=== PATIENT | male | born 1940 | race Caucasian/White ===

== ENCOUNTER 2017-12-22 01:47 | Outpatient (CLI) | payer MEDICARE, SELFPAY ==
[2017-12-22 09:44] LABS: Anion Gap 7.1 mmol/L (3-11); BUN 33 mg/dL (7-18); CO2 30.9 mmol/L (21.0-32.0); CREATININE 1.16 mg/dL (0.70-1.30); Calcium 9.2 mg/dL (8.5-10.1); Chloride 105 mmol/L (98-107); Glucose 91 mg/dL (70-100); Potassium 4.2 mmol/L (3.5-5.1); Sodium 143 mmol/L (136-145)
== END 2017-12-22 02:07 ==
PROVIDERS: PCP Student in an Organized Health Care Education/Training Program; Visit Provider Student in an Organized Health Care Education/Training Program
DX: I10 Essential (primary) hypertension (principal)
CPT/HCPCS: 36415; 80048

== ENCOUNTER → 2018-01-19 07:40 | Outpatient (BNVA) | payer MEDICARE, SELFPAY | PROVIDERS: PCP Student in an Organized Health Care Education/Training Program; Visit Provider Urology | DX: R35.0 Frequency of micturition (principal) | CPT/HCPCS: 51798; 99203; 99215 ==

== ENCOUNTER → 2018-06-16 10:34 | Outpatient (BNVA) | payer MEDICARE, SELFPAY | PROVIDERS: PCP Student in an Organized Health Care Education/Training Program; Visit Provider Urology | DX: R35.0 Frequency of micturition (principal); R39.15 Urgency of urination; I10 Essential (primary) hypertension | CPT/HCPCS: 99213 ==

== ENCOUNTER → 2018-07-28 10:20 | Outpatient (BNVA) | payer MEDICARE, SELFPAY | PROVIDERS: PCP Student in an Organized Health Care Education/Training Program; Visit Provider Urology | DX: N40.0 Benign prostatic hyperplasia without lower urinary tract symptoms (principal); I10 Essential (primary) hypertension | CPT/HCPCS: 99213 ==

== ENCOUNTER 2019-01-13 08:37 | Outpatient (CLI) | payer MEDICARE, SELFPAY ==
[2019-01-13 10:21] LABS: BUN 27 mg/dL (7-18); CREATININE 1.13 mg/dL (0.70-1.30); Calcium 9.7 mg/dL (8.5-10.1); Calculated LDL 158 mg/dL; Chloride 107 mmol/L (98-107); Cholesterol 222 mg/dL (<200); Glucose 94 mg/dL (74-106); HDL Cholesterol 53 mg/dL (40-60); Potassium 4.4 mmol/L (3.5-5.1); Sodium 147 mmol/L (136-145); Triglyceride 56 mg/dL (<150)
== END 2019-01-13 08:57 ==
PROVIDERS: PCP Student in an Organized Health Care Education/Training Program; Visit Provider Student in an Organized Health Care Education/Training Program
DX: I10 Essential (primary) hypertension (principal); E78.5 Hyperlipidemia, unspecified
CPT/HCPCS: 36415; 80048; 80061

== ENCOUNTER → 2019-08-03 10:11 | Outpatient (BNVA) | payer MEDICARE, SELFPAY | PROVIDERS: PCP Student in an Organized Health Care Education/Training Program; Visit Provider Urology | DX: N40.0 Benign prostatic hyperplasia without lower urinary tract symptoms (principal) | CPT/HCPCS: 99213 ==

== ENCOUNTER 2019-09-01 09:08 | Inpatient (IN) | payer MEDICARE, SELFPAY ==
--- NOTE | 2019-09-01 | RT.EKG_ITS ---
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
--- NOTE | 2019-09-01 09:00 | RT.EKG_ITS ---
APPROVED REPORT Exam: Resting ECG Patient Location: E HR:98 bpm ECG Measurements Heart Rate 98 AXIS WY 234 P 53 QRSd 104 QRS -21 QT 359 T 136 QTc 463 <Conclusion> Sinus tachycardiarate 98. PVCs..PR234. LVH with secondary repolarization abnormality...multi-LVH criteria,non specific st flattening no st elevation. Inferior infarct, old...Q >35mS, II III aVF
[2019-09-01 09:13] VITALS: BP 183/101; PULSE 100; RESP 14; TEMP 36.5; O2SAT 95
--- NOTE | 2019-09-01 09:15 | DI.CT_ITS ---
EXAM: CT ABDOMEN PELVIS W CLINICAL HISTORY: R > L abd pain for hours. DIstended. TECHNIQUE: Imaging Protocol: Axial computed tomography images with coronal and sagittal reformatted images were created and reviewed CONTRAST MATERIAL: Intravenous: Omnipaque 350 Contrast volume:100 mL Oral: No COMPARISON: US ABDOMEN ULTRASOUND (P) from 10/21/2011 US ABDOMEN ULTRASOUND (P) from 09/28/2012 FINDINGS: Patient motion artifact is present. ABDOMEN: Lung Bases: Normal where visualized. Liver: Normal density. No measurable mass. 2 cm cyst in the left lobe. Portal, Superior Mesenteric, and Splenic Veins: Unremarkable. Gallbladder and Biliary Tract: Cholelithiasis. No biliary ductal dilatation. Pancreas: Normal density, no abnormal calcifications or inflammatory process. Spleen: Normal. Adrenals: No masses seen. Kidneys: Normal size, contour and axis. No radiodense stones or obstructive uropathy. Bilateral parap elvic cysts. Abdominal Aorta: Abdominal portion non-dilated. Atherosclerosis. Bowel: No obstruction or bowel wall thickening. Appendix is unremarkable. Peritoneal Cavity: No ascites, collection or mesenteric inflammatory response. Lymph Nodes: Within normal limits. Bones: Degenerative changes. Soft Tissues: Fat containing left inguinal hernia. PELVIS: Bladder: Symmetric distention, no gross wall thickening. Reproductive Organs: Unremarkable as visualized. Lymph Nodes: Within normal limits. Bones: Degenerative changes. IMPRESSION: 1. No acute abdominal process. 2. Cholelithiasis. No biliary ductal dilatation. 3. No evidence of bowel obstruction. 4. Findings were discussed with the emergency department on the date of the examination. RADIATION DOSE DELIVERED: Total DLP DATA REPOSITORY: All CT scans at this facility are submitted to the National Radiology Data Registry (NRDR) Dose Index Registry (DIR) with the [employer] (ACR). RADIATION OPTIMIZATION: All CT scans at this facility use at least one of these dose optimization te chniques: automated exposure control; mA and/or kV adjustment per patient size (includes targeted exa ms where dose is matched to clinical indication); or iterative reconstruction.
--- NOTE | 2019-09-01 09:26 | ED.GENADUL_ITS ---
Discharge Plan Disposition Patient Disposition: [facility] IN[facility]IENT Condition: Stable Discharge Details Chief Complaint: Abd Prob Clinical Impression: Gallbladder sludge Admit Date/Time: 09/01/19 14:00 Admit Provider: Jennifer Rodriguez Attending Provider: Jennifer Rodriguez Primary Care Provider: Elana Green ED Provider: Leon Cuellar Medical Decision Making 78-year-old male presents from home with hours of lower abdominal pain and bloating. He was recently seen in clinic on July 27 and started on Lasix 20 mg twice daily for lower extremity edema which has had some improvement. His discomfort was minimally improved with antacid at home. He arrives slightly hypertensive, afebrile, with an exam that reveals a distended and mildly tympanitic abdomen. IV placed, labs obtained, patient offered analgesia which she declined. Is given a small 500 cc lactated Ringer's bolus. Labs reveal a white blood cell count of 16, hematocrit 48, platelets 152. His BUN is 31, creatinine 1.3. Lactic acid is elevated at 5.0. Total bili 1.2, AST 16, ALT 29, negative troponin and normal lipase of 142. Referred for CT imaging which reveals gallstones, no significant acute pathology otherwise noted. Subsequent right upper quadrant ultrasound: Gallstones/sludge at neck, CBD within normal limits. Case discussed with Dr. Rodriguez. Patient given parenteral antibiotics and he will be admitted for further observation and management. Lab Data Lab results reviewed: Yes I reviewed the patient's lab results. Labs: Laboratory Results - last 24 hr 09/01/19 09/01/19 09/01/19 09:29 09:29 09:29 WBC 16.27 H RBC 5.71 Hgb 15.9 Hct 48.8 MCV 85.5 MCH 27.8 MCHC 32.6 RDW 14.8 H Plt Count 152 MPV 9.7 Immature Gran % 0.5 Neutrophils % 89.5 Lymphocytes % 3.1 Monocytes % 6.8 Eosinophils % 0.0 Basophils % 0.1 Absolute Neutrophils 14.56 H Absolute Lymphocytes 0.50 L Absolute Monocytes 1.11 H Absolute Eosinophils 0.00 Absolute Basophils 0.02 Sodium 140 Potassium 4.0 Chloride 100 Carbon Dioxide 29.0 Anion Gap 11.0 BUN 31 H Creatinine 1.38 H Estimated GFR/1.73 m2 49.70 Glucose 184 H Lactate 5.0 H* Calcium 10.1 Magnesium 2.1 Total Bilirubin 1.2 H AST 16 ALT 29 Alkaline Phosphatase 66 Troponin I < 0.05 Total Protein 8.0 Albumin 3.9 Lipase 142 ECG Data Attestation: I personally reviewed and interpreted this ECG (s) as follows: Interpretation: Sinus tachycardia, rate is 98, QRS is narrow, there is no ST elevation, there are nonspecific ST segment changes present. Inferior Q waves present. See formal report. HPI General Mode of arrival: ambulatory . Date/Time Provider Initiated Documentation: 09/01/19 09:10 . Limitations to Documentation: no limitations . Information obtained by: patient . History of Present Illness 78 year old M presents to the emergency department with the chief complaint of Lower abdominal pain over hours, described as moderate, Quality is described as dull and constant, and is localized to the abdomen, left and right. Patient abdomen. Patient started experiencing this hour(s) and it has been constant. No relieving factors improve symptom(s), No exacerbating factors reported . Patient notes loss of appetite and other (No bowel movement x3 days). Patient did receive the following treatments prior to arrival, none Related Data Home Medications Medication Instructions Recorded Confirmed acetaminophen [Acetaminophen Extra 1,000 mg PO PRN PRN 06/11/12 09/01/19 Strength] aspirin [Low Dose Aspirin Ec] 81 mg PO M-W-F tab-cap 06/11/12 09/01/19 polyvinyl alcohol [Artificial 1 drp OPHTHALMIC PRN PRN 06/11/12 09/01/19 Tears] furosemide 20 mg tablet 20 mg PO BID #60 tab 07/28/19 09/01/19 lisinopril 40 mg tablet 40 mg PO DAILY #90 tab 07/28/19 09/01/19 Previous Rx's Medication Instructions Recorded furosemide 20 mg tablet 20 mg PO BID #60 tab 07/28/19 lisinopril 40 mg tablet 40 mg PO DAILY #90 tab 07/28/19 Allergies Allergy/AdvReac Type Severity Reaction Status Date / Time hydrochlorothiazide AdvReac Mild possible Verified 09/01/19 09:29 Erectile dysfunction General Stated Complaint: Abd Prob THALIA: 3 Review of Systems Narrative: Move around recent initiation of Lasix. History of GERD. No cough, fever. Minimally improved with acid medication at home last night. 8 systems reviewed and otherwise negative. [facility] Medical History Benign hypertension (Chronic 12/09/05) <140/85; BP was high at time of colonoscopy so Dr. Taylor started him on HCTZ 2005. High BP readings @ ophtho, urol . turns out to be 2' finesteride, Dr. Smallwood d/levi'pool .. will follow up in July 2018. 125/85 today, 06/2018, ik. 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 Pleasant, well groomed, interactive. HEAD: Normocephalic, atraumatic ENT: Mucous membranes moist, oropharynx unremarkable, External ear exam unrem arkable EYES: PERRL, EOMI NECK: Full ROM, no BEATRIZ, no menigismus CHEST/RESP: Nontender, clear to auscultation bilateral, no wheeze/rhonchi/rales CARDIOVASCULAR: Distant: RRR, no murmur, rub nabor. 2+ Rad pulse bilateral ABDOMEN: Soft, distended, slightly tympanitic, mildly tender in the right lower quadrant, no significant rebound,, no mass. +Bowel sounds EXT: Full ROM, 1+ pretibial edema, no rash Neuro: Grossly normal neurologic exam, conversant, interactive. Psych: Speech fluent, thoughts congruent, affect normal Course Vital Signs Vital signs: Vital Signs Temperature 36.5 C 09/01/19 09:13 Pulse 100 H 09/01/19 09:13 Respiratory Rate 14 09/01/19 09:13 Blood Pressure 183/101 H 09/01/19 09:13 Pulse Oximetry 95 09/01/19 09:13 Temperature 36.5 C 09/01/19 09:13 Temperature Source Temporal Artery Scan 09/01/19 09:13 Pulse 100 H 09/01/19 09:13 Respiratory Rate 14 09/01/19 09:13 Blood Pressure 183/101 H 09/01/19 09:13 Blood Pressure Position Sitting 09/01/19 09:13 Pulse Oximetry 95 09/01/19 09:13 Oxygen Delivery Method Room Air 09/01/19 09:13 Oxygen Flow Rate 0 09/01/19 09:13 Pain Level 5 09/01/19 09:13
[2019-09-01 09:37] LABS: Abs Immature Grans 0.08 k/cumm (0.0-0.09); Absolute Basophil Count 0.02 k/cumm (0.0-0.2); Absolute Monocyte Count 1.11 k/cumm (0.11-0.7); Absolute Neutrophil Count 14.56 k/cumm (1.2-6.7); Basophils % 0.1; HCT 48.8 % (40.0-50.0); HGB 15.9 g/dL (13.5-17.5); Immature Grans % 0.5 %; Lymphocytes % 3.1; Mean Corp. HGB Concentration 32.6 g/dL (32.0-36.0); Mean Corpuscular Hemoglobin 27.8 pg (27.0-33.0); Mean Corpuscular Volume 85.5 fL (80-95); Mean Platelet Volume 9.7 fL (8.0-11.0); Monocytes % 6.8; Neutrophils % 89.5; Platelet Count 152 x1000/uL (130-400); RBC 5.71 m/cumm (4.50-6.00); RBC Distribution Width 14.8 % (11.8-14.1); White Blood Cell Count 16.27 k/cumm (4.4-10.8)
[2019-09-01 09:57] LABS: ALT 29 U/L (16-63); AST 16 U/L (15-37); Albumin 3.9 g/dL (3.4-5.0); Alkaline Phosphatase 66 U/L (46-116); BUN 31 mg/dL (7-18); Bilirubin, Total 1.2 mg/dL (0.2-1.0); CREATININE 1.38 mg/dL (0.70-1.30); Calcium 10.1 mg/dL (8.5-10.1); Chloride 100 mmol/L (98-107); Glucose 184 mg/dL (74-106); Lipase 142 U/L (73-393); Magnesium 2.1 mg/dL (1.8-2.4); Sodium 140 mmol/L (136-145)
[2019-09-01] MEDS: Lactated Ringers 500 ML IV (09:57)
[2019-09-01 09:58] LABS: Troponin I < 0.05 ng/mL (<0.06)
[2019-09-01] MEDS: Omnipaque 350 MG/ML 100 ML BTL IJ (10:19)
[2019-09-01] MEDS: Normal Saline - Diluent 50 ML VIAL IV (10:20)
[2019-09-01] MEDS: Normal Saline Flush 10 ML SYR IVP ×2 (10:21→16:30)
--- NOTE | 2019-09-01 10:30 | DI.US_ITS ---
EXAM: US ABDOMEN LIMITED CLINICAL HISTORY: R abd pain, gallstones on CT. please evaluate TECHNIQUE: Ultrasound abdomen performed using standard protocol. COMPARISON: CT CT ABDOMEN PELVIS W from 09/01/2019 FINDINGS: GALLBLADDER: Gallbladder sludge is present. No evidence of wall thickening. No pericholecystic fluid identified. BILIARY SYSTEM: Common bile duct measures 0.8 cm. No intrahepatic biliary ductal dilation. IMPRESSION: Gallbladder sludge. No biliary ductal dilatation. Examination is limited due to overlying bowel gas. DATA REPOSITORY:
[2019-09-01 11:06] LABS: Bilirubin Negative (Negative); Blood Small (Negative); Clarity Clear (Clear); Glucose Negative (Negative); Ketones Negative (Negative); Leukocyte Esterase Negative (Negative); Nitrite Negative (Negative); Specific Gravity 1.015 (1.005-1.025); Urobilinogen 0.2 EU/dL (Up TO 0.2)
[2019-09-01 11:14] LABS: Bacteria Rare HPF (Negative); C & S Indicated? No; Casts Negative LPF (Negative); Crystals Negative HPF (Negative); Epithelial Cells Negative HPF (Negative); Mucus Negative (Negative); Other Cells Negative (Negative); WBC Negative HPF (0-5)
[2019-09-01 11:33] VITALS: BP 193/95; PULSE 97; RESP 19; TEMP 37.4; O2SAT 95
[2019-09-01] MEDS: PIPERACILLIN/TAZO 3.375 GM in Normal Saline 50 ML IVPB (11:49)
[2019-09-01] MEDS: Normal Saline 1,000 ML 125 ML IV ×2 (11:50→16:31)
[2019-09-01 12:15] LABS: Lactate 4.8 mmol/L (0.6-1.4)
[2019-09-01 15:08] VITALS: BP 182/107; PULSE 105; RESP 22; TEMP 36.6; O2SAT 96
[2019-09-01 15:09] VITALS: BP 178/112; BP 180/110
[2019-09-01 15:22] VITALS: BP 180/110; PULSE 105; RESP 22; TEMP 36.6; O2SAT 96
[2019-09-01] MEDS: Pantoprazole 40 MG VIAL IVP (16:29)
[2019-09-01] MEDS: Enoxaparin 30 MG/0.3 ML SYR SC (16:30)
[2019-09-01] MEDS: PIPERACILLIN/TAZO 4.5 GM in Normal Saline 100 ML IVPB (16:32)
--- NOTE | 2019-09-01 21:39 | HPE_ITS ---
Date of service: 09/01/19 Time of Service: 21:39 Assessment and Plan Assessment and plan (1) Gallbladder sludge: Status: Acute (2) Abdominal aortic aneurysm: Status: Acute Assessment and plan: CT that was done today does not show any aneurysm. (3) Pain in joint, other specified sites: Status: Chronic (4) Obesity, Class II, BMI 35-39.9, no comorbidity: Status: Chronic (5) Memory disturbance: Status: Chronic (6) Hyperlipidemia: Status: Chronic (7) Benign hypertension: Status: Chronic (8) BPH w/o urinary obs/LUTS: Status: Chronic (9) Gallstones: Status: Acute Assessment and plan: Patient does exhibit clinical dehydration today. He does not exhibit any acute cardio pathology. Ultrasound and CT did not show any signs of acute cholecystitis. He definitely has gallstones and sludge. He definitely clinically has moderate right upper quadrant pain. He has never had any gallbladder problems up until this point. He definitely needs to be admitted. I am going to start him on antibiotics. I am not 100% convinced at this time that this his problems are due to acute cholecystitis. However I am going to treat him medically. I would like to get an echo before we do surgery on him today and then start him on antibiotics and Protonix. And we will see how he is feeling in the morning and continue supportive care If he is not better in the morning and his echo is favorable then we may do laparoscopic Elena in the morning. I was not able to discuss the case with the patient's today. And I do want to talk to her before we proceed to surgery. Patient is not a good historian. Currently he is medically stable and will admit him to [facility] (10) Gallbladder sludge: Status: Acute History of Present Illness Consults Consult date: 09/01/19 Requesting physician: Leon Cuellar Narrative: From ED: 8 year old M presents to the emergency department with the chief complaint of Lower abdominal pain over hours, described as moderate, Quality is described as dull and constant, and is localized to the abdomen, left and right. Patient abdomen. Patient started experiencing this hour(s) and it has been constant. No relieving factors improve symptom(s), No exacerbating factors reported . Patient notes loss of appetite and other (No bowel movement x3 days). Patient did recei ve the following treatments prior to arrival, none Related Data Patient was seen and examined at 1:00 this afternoon. Patient came into the ED today complaining of abdominal pain. Patient is not the greatest historian and is very hard of hearing. Patient stating he woke up this morning with abdominal pain. He is never had problems with abdominal pain in the past. He does not get heartburn or indigestion. He is not on any stomach medication. He has been nauseated and has not not eaten today. Has not had a bowel movement in several days. He is not throwing up. He is not noticed any blood in his stools. He denies any pain or difficulty swallowing. He has had no weight loss. He has never had anything like this before. No one else at home is ill. He denies any new medications or travel. He points basically at his right mid abdomen where he says he has pain. Patient is never had any abdominal surgery before. Blood thinner that he is on is aspirin. Patient has recently noticed worsening of lower extremity edema for which she recently started Lasix for. He has had no echo or stress test done recently. He has a history of hypertension elevated cholesterols and smoking. He is never had a heart attack or stroke. He denies diabetes mellitus. He denies obstructive sleep apnea. Dr. Dela Cruz did note that he is starting to develop some memory problems. Results of the EKG obtained in the ED noted by Dr. Cuellar. I did personally review all his labs and x-ray studies.. From PCP 07/2019 He has a past medical history significant for hypertension, hyperlipidemia, and benign prostate hyperplasia. No Hx CAD; he is not taking medication to manage cholesterol. We reviewed lab results from this past fall and the are mostly WNL. COntinue with diet and lifestyle modifications Review of Systems All systems reviewed & are unremarkable except as noted in HPI and below [facility] Medical History Benign hypertension (Chronic 12/09/05) <140/85; BP was high at time of colonoscopy so Dr. Taylor started him on HCTZ 2005. High BP readings @ ophtho, urol . turns out to be 2' finesteride, Dr. Smallwood d/c'd .. will follow up in July 2018. 125/85 today, 06/2018, ik. 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 [employer] What type of physical activity do you participate in: none Working smoke detector in home: Yes Fire extinguisher in home: Yes Carbon monox detector in home: Yes Do you feel safe at home: Yes Meds Home Medications and Allergies Home Medications Medication Instructions Recorded Confirmed Type acetaminophen [Acetaminophen Extra 1,000 mg PO PRN PRN 06/11/12 09/01/19 History Strength] aspirin [Low Dose Aspirin Ec] 81 mg PO M-W-F tab-cap 06/11/12 09/01/19 History polyvinyl alcohol [Artificial 1 drp OPHTHALMIC PRN PRN 06/11/12 09/01/19 History Tears] furosemide 20 mg tablet 20 mg PO BID #60 tab 07/28/19 09/01/19 Rx lisinopril 40 mg tablet 40 mg PO DAILY #90 tab 07/28/19 09/01/19 Rx Allergies Allergy/AdvReac Type Severity Reaction Status Date / Time hydrochlorothiazide AdvReac Mild possible Verified 09/01/19 09:29 Erectile dysfunction Exam [facility] Head: normal to inspection Ears: hearing grossly impaired Mouth: oral mucosae normal Chest Chest: normal inspection of the chest Resp Effort & Inspection: normal respiratory effort and able to speak in complete sentences Auscultation: clear to auscultation bilaterally Cardio Jugular venous pressure: no JVD Palpation: normal PMI Rate: regular rate GI Inspection: distended, large pannus and obesity Palpation: firm Auscultation: normal bowel sounds Other: Patient points to the right upper generalized area of the abdomen. It is maybe a positive Sev[place] sign. He does have good bowel sounds. Slightly distended. He does have a umbilical hernia. This is nonincarcerated. There is a left inguinal hernia noted on CAT scan. I did not do a complete inguinal lorena ia exam. He has no pain down on the side. Results Labs Result diagrams: 09/01/19 09:29 09/01/19 09:29 Labs: Laboratory Results - last 24 hr 09/01/19 09/01/19 09/01/19 09:29 09:29 09:29 WBC 16.27 H RBC 5.71 Hgb 15.9 Hct 48.8 MCV 85.5 MCH 27.8 MCHC 32.6 RDW 14.8 H Plt Count 152 MPV 9.7 Immature Gran % 0.5 Neutrophils % 89.5 Lymphocytes % 3.1 Monocytes % 6.8 Eosinophils % 0.0 Basophils % 0.1 Absolute Neutrophils 14.56 H Absolute Lymphocytes 0.50 L Absolute Monocytes 1.11 H Absolute Eosinophils 0.00 Absolute Basophils 0.02 Sodium 140 Potassium 4.0 Chloride 100 Carbon Dioxide 29.0 Anion Gap 11.0 BUN 31 H Creatinine 1.38 H Estimated GFR/1.73 m2 49.70 Glucose 184 H Lactate 5.0 H* Calcium 10.1 Magnesium 2.1 Total Bilirubin 1.2 H AST 16 ALT 29 Alkaline Phosphatase 66 Troponin I < 0.05 Total Protein 8.0 Albumin 3.9 Lipase 142 Urine Color Urine Clarity Urine pH Ur Specific [place] Urine Protein Urine Ketones Urine Blood Urine Nitrite Urine Bilirubin Urine Urobilinogen Ur Leukocyte Esterase Urine RBC Urine WBC Ur Epithelial Cells Urine Crystals Urine Bacteria Urine Casts Urine Mucus Urine Other Ur Culture Indicated? Urine Glucose 09/01/19 09/01/19 10:55 12:08 WBC RBC Hgb Hct MCV MCH MCHC RDW Plt Count MPV Immature Gran % Neutrophils % Lymphocytes % Monocytes % Eosinophils % Basophils % Absolute Neutrophils Absolute Lymphocytes Absolute Monocytes Absolute Eosinophils Absolute Basophils Sodium Potassium Chloride Carbon Dioxide Anion Gap BUN Creatinine Estimated GFR/1.73 m2 Glucose Lactate 4.8 H* Calcium Magnesium Total Bilirubin AST ALT Alkaline Phosphatase Troponin I Total Protein Albumin Lipase Urine Color Yellow Urine Clarity Clear Urine pH 7.0 Ur Specific [place] 1.015 Urine Protein 30 H Urine Ketones Negative Urine Blood Small H Urine Nitrite Negative Urine Bilirubin Negative Urine Urobilinogen 0.2 Ur Leukocyte Esterase Negative Urine RBC 5-10 H Urine WBC Negative Ur Epithelial Cells Negative Urine Crystals Negative Urine Bacteria Rare Urine Casts Negative Urine Mucus Negative Urine Other Negative Ur Culture Indicated? No Urine Glucose Negative Last Vital Signs Temp 36.6 C 09/01/19 15:22 Pulse 105 H 09/01/19 15:22 Resp 22 09/01/19 15:22 BP 180/110 H 09/01/19 15:22 Pulse Ox 96 09/01/19 15:22 COVID-19 Screening Have you,or household,traveled outside [place] in last 14 days?: No Had IN PERSON contact w/suspected or confirmed C-19 person: No
[2019-09-01 22:03] LABS: Prothrombin Time 10.5 sec (9.3-11.0)
[2019-09-01 22:15] LABS: Troponin I < 0.05 ng/mL (<0.06)
[2019-09-01] MEDS: Magnesium Citrate 300 ML BTL PO (22:27)
[2019-09-01 23:44] VITALS: BP 195/99; PULSE 83; RESP 20; TEMP 36.8; O2SAT 94
--- NOTE | 2019-09-02 | DI.US_ITS ---
APPROVED REPORT EXAM: Comprehensive 2D, Doppler, and color-flow Echocardiogram Patient Location: In-Patient Room/Bed: [address] Teacher: Anisa Chairez RDCS (AE) Indications: HTN, Edema, Smoker Other Information Study Quality: Poor Conclusion Left Ventricle : The left ventricle is normal size. The left ventricular systolic function is normal. The left ventricular ejection fraction is within the normal range. There is normal left ventricular wall thickness. Regional wall motion is grossly normal. Visually LVEF appears to be 45-50%. Right Ventricle : The right ventricle is normal size. The right ventricular systolic function is norm al. The RVSP is 20 mmHg. Atria : The left atrium size is normal. The right atrium size is normal. Valves: There are no hemodynamically significant valvular lesions. Great Vessels : The aortic root is normal in size. The ascending aorta is mildly dilated. IVC is norm al in size and collapses >50% with inspiration. There is no prior study available for comparison Please see the rest of report for additional findings. Wall motion Left Ventricle The left ventricle is normal size. The left ventricular systolic function is normal. The left ventric ular ejection fraction is within the normal range. There is normal left ventricular wall thickness. R egional wall motion is grossly normal. There is no ventricular septal defect visualized. Visually LVE F appears to be 45-50%. Right Ventricle The right ventricle is normal size. The right ventricular systolic function is normal. The RVSP is 20 mmHg. Atria The left atrium size is normal. The right atrium size is normal. The interatrial septum is intact wit h no evidence for an atrial septal defect. Aortic Valve Aortic valve is trileaflet. The Aortic valve is sclerotic. There is no aortic valvular stenosis. No a ortic regurgitation is present. Mitral Valve Mild mitral annular calcification. No evidence of mitral valve stenosis. Trace mitral regurgitation. Tricuspid Valve The tricuspid valve is normal in structure. There is no tricuspid valve stenosis. Trace tricuspid reg urgitation. Pulmonic Valve The pulmonary valve is normal in structure. There is no pulmonic valvular stenosis. There is no pulmo yesi valvular regurgitation. Great Vessels The aortic root is normal in size. The ascending aorta is mildly dilated. IVC is normal in size and c ollapses >50% with inspiration. Pericardium There is no pericardial effusion. 2D Dimensions IVSD d PLAX 1.03 cm M: 0.6-1.2 LVPW d PLAX 1.05 cm M: 0.6 - 1.2 LVID d PLAX 5.16 cm M: 4.2 - 5.8 LVDs 3.75 cm M: 2.5 - 4.0 Ao Root d 2.66 cm M: 3.1 - 3.7 Ao Asc Diam d 3.60 cm M: 2.6 - 3.4 LV EF Teichholz 51.4 % FS 26.35 % M-Mode TAPSE 1.24 cm (M/F) >1.7 LV Diastology MV E' medial 0.048 (>0.07 m/s) E/A Ratio 0.6 LV E/e MED 12.60 (<14) MV E Vmax 0.61 (0.4-1.3 m/s) MV E' lateral 0.109 (>0.1 m/s) MV A Vmax 1.05 (0.4-1.3 m/s) LV E/e LAT 5.55 (<14) MV E/A Ratio 0.57 MV E/E' medial 12.61 MV E/E' lateral 5.59 Aortic Valve LVOT Area 2.89 cm2 AoV Area Vmax 1.54 cm2 LVOT Vmax 0.95 m/s AoV Area/ BSA (Vmax) 0.70 cm2/m2 LVOT Mean Tavo. 0.58 m/s TIMOTHY Mean Tavo. 1.36 cm2 LVOT Peak Grad 3.6 mmHg TIMOTHY Mean Tavo. Index 0.62 cm2/m2 LVOT Mean Grad 1.7 mmHg LVOT VTI 0.165 m LVOT Diam s 1.90 cm AoV Vmax 1.79 m/s Velocity Ratio 0.53 AoV Mean Tavo. 1.23 m/s AoV Peak Grad 12.9 mmHg LVOT SV 47.72 mL AoV Mean Grad 6.8 mmHg AoV VTI 0.287 m AoV Area VTI 1.66 cm2 AoV Area/ BSA (VTI) 0.75 cm/m2 Mitral Valve MV DT 238 (160-240 msec) MV PHT 69 msec MV Area PHT 3.19 cm2 Pulmonary Valve PV Vmax 1.14 (0.5-1.5 m/s) RVOT Peak Gr. 1.95 mmHg PV Peak Grad 5.2 mmHg RVOT Mean Gr. 1.10 mmHg PV Mean Grad 3.2 mmHg RVOT VTI 0.113 m PV VTI 0.198 m RVOT Vmax 0.70 m/s Tricuspid Valve TR Peak Grad 16.8 mmHg TR Vmax 2.05 m/s RA Pressure 3.00 mmHg RVSP (TR) 19.9 mmHg
[2019-09-02] MEDS: PIPERACILLIN/TAZO 4.5 GM in Normal Saline 100 ML IVPB ×3 (00:26→16:11)
[2019-09-02 06:48] LABS: Abs Immature Grans 0.06 k/cumm (0.0-0.09); Absolute Basophil Count 0.02 k/cumm (0.0-0.2); Absolute Eosinophil Count 0.09 k/cumm (0.0-0.7); Absolute Lymphocyte Count 0.98 k/cumm (1.2-3.4); Absolute Monocyte Count 1.52 k/cumm (0.11-0.7); Absolute Neutrophil Count 9.01 k/cumm (1.2-6.7); Basophils % 0.2; Eosinophils % 0.8; HGB 15.3 g/dL (13.5-17.5); Immature Grans % 0.5 %; Lymphocytes % 8.4; Mean Corp. HGB Concentration 32.6 g/dL (32.0-36.0); Mean Corpuscular Hemoglobin 27.9 pg (27.0-33.0); Mean Corpuscular Volume 85.6 fL (80-95); Mean Platelet Volume 10.1 fL (8.0-11.0); Neutrophils % 77.1; Platelet Count 128 x1000/uL (130-400); RBC 5.49 m/cumm (4.50-6.00); RBC Distribution Width 15.2 % (11.8-14.1); White Blood Cell Count 11.68 k/cumm (4.4-10.8)
[2019-09-02 06:56] LABS: INR 1.1 (0.9-1.1); Prothrombin Time 10.7 sec (9.3-11.0)
[2019-09-02 07:14] LABS: ALT 21 U/L (16-63); AST 22 U/L (15-37); Albumin 3.4 g/dL (3.4-5.0); Alkaline Phosphatase 60 U/L (46-116); Anion Gap 7.9 mmol/L (3-11); BUN 26 mg/dL (7-18); Bilirubin, Total 2.7 mg/dL (0.2-1.0); CO2 29.1 mmol/L (21.0-32.0); Calcium 9.8 mg/dL (8.5-10.1); Chloride 104 mmol/L (98-107); Estimated GFR 53.25 (mL/min/1.73m2); Glucose 125 mg/dL (74-106); Potassium 3.7 mmol/L (3.5-5.1); Sodium 141 mmol/L (136-145); Total Protein 7.1 g/dL (6.4-8.2)
[2019-09-02 07:26] LABS: Diff Comment Diff Reviewed; RBC Morphology Normal
[2019-09-02 07:44] VITALS: BP 212/118; PULSE 85; RESP 20; TEMP 36.9; O2SAT 94
[2019-09-02] MEDS: Lisinopril 20 MG TAB 40 MG PO (07:51)
[2019-09-02 08:27] LABS: COVID-19 RT-PCR UVMMC Result Negative (Negative)
--- NOTE | 2019-09-02 09:44 | W.PM.PROGNOT ---
Date of Service Date of service: 09/02/19 Time of Service: 09:44 Assessment and Plan Assessment and plan (1) Gallbladder sludge: Status: Acute (2) Abdominal pain: Status: Acute Assessment and plan: Right lower quadrant abdominal pain. Uncertain uncertain etiology. I did review his CT today. He does have stones and sludge. The stones are very small. He has no other signs of acute cholecystitis. He has had no problems prior to Friday. He has no nausea today and tolerated clear liquids. He is not the best historian. I am not sure the clinical significance or the etiology for the elevated bilirubin. There is no signs liver disease on CT scan. And his other LFTs are normal. He still has not been able to move his bowels. We will continue to work on this. He did have an echo today and this was relatively preserved. We will continue with conservative medical management (3) Obstipation: Status: Acute (4) Elevated bilirubin: Status: Acute Subjective Subjective Interval history since last seen: I did review the CT scan the radiologist. There are no masses in the pancreas the common bile duct is completely normal. Is 2 very small stones in the gallbladder and a lot of sludge. There is no signs of cholangiocarcinoma or cholangitis. On exam today patient has some mild tenderness in the right lower quadrant. No nausea and vomiting. He is passing gas. He is not had a bowel movement. Again he had no symptomatology and was in a normal state of good health until yesterday. He had a colonoscopy in 2010 that was essentially unremarkable. He had follow-up removed but was hyperplastic. Labs and x-rays reviewed today. No results on his echo looked good. Patient is hungry. Exam [facility] Other: neg/unchanged Chest Chest: normal inspection of the chest Resp Effort & Inspection: normal respiratory effort and able to speak in complete sentences Auscultation: clear to auscultation bilaterally Cardio Rate: regular rate Rhythm: regular rhythm Other: Results of echo reviewed and are normal for age. GI Inspection: obesity Palpation: soft Auscultation: normal bowel sounds Other: Mild right lower quadrant pain. Small umbilical hernia. No peritonitis. Patient wants to eat Objective Objective Clinical Data: Abnormal lab results 09/01/19 09/01/19 09/01/19 Range/Units 09:29 10:55 12:08 WBC (4.4-10.8) k/cumm RDW (11.8-14.1) % Plt Count (130-400) x1000/uL Absolute Neutrophils (1.2-6.7) k/cumm Absolute Lymphocytes (1.2-3.4) k/cumm Absolute Monocytes (0.11-0.7) k/cumm BUN 31 H (7-18) mg/dL Creatinine 1.38 H (0.70-1.30) mg/dL Glucose 184 H (74-106) mg/dL Lactate 4.8 H* (0.6-1.4) mmol/L Total Bilirubin 1.2 H (0.2-1.0) mg/dL Urine Protein 30 H (Negative) mg/dL Urine Blood Small H (Negative) Urine RBC 5-10 H (0-2) HPF 09/01/19 09/02/19 09/02/19 Range/Units 21:45 06:20 06:20 WBC 11.68 H (4.4-10.8) k/cumm RDW 15.2 H (11.8-14.1) % Plt Count 128 L (130-400) x1000/uL Absolute Neutrophils 9.01 H (1.2-6.7) k/cumm Absolute Lymphocytes 0.98 L (1.2-3.4) k/cumm Absolute Monocytes 1.52 H (0.11-0.7) k/cumm BUN 26 H (7-18) mg/dL Creatinine (0.70-1.30) mg/dL Glucose 125 H (74-106) mg/dL Lactate 2.0 H (0.6-1.4) mmol/L Total Bilirubin 2.7 H (0.2-1.0) mg/dL Urine Protein (Negative) mg/dL Urine Blood (Negative) Urine RBC (0-2) HPF Vital Signs Temperature 36.9 C 09/02/19 07:44 Temperature Source Tympanic 09/02/19 07:44 Pulse 85 09/02/19 07:44 Pulse Rhythm Regular 09/02/19 07:50 Respiratory Rate 20 09/02/19 07:44 Respiratory Effort Non-Labored 09/02/19 07:50 Respiratory Depth Normal 09/02/19 07:50 Respiratory Pattern Normal 09/02/19 07:50 Blood Pressure 212/118 H 09/02/19 07:44 Blood Pressure Position Sitting 09/01/19 09:13 Pulse Oximetry 94 L 09/02/19 07:44 Oxygen Delivery Method Room Air 09/01/19 23:44 Oxygen Flow Rate 0 09/01/19 23:44 Pain Level 4 09/02/19 07:44 Comment 09/02/19 07:44 Intake & Output 09/01/19 09/01/19 09/02/19 11:59 23:59 11:59 Intake Total 500 / 1255.417 735.417 / 1255.417 120 / 120 Output Total 500 / 500 Balance 500 / 1055.417 735.417 / 1055.417 -380 / -380 Weight 108.862 kg 108.862 kg Intake: IV 500 / 1255.417 735.417 / 1255.417 120 / 120 Output: Urine 500 / 500 Other: Urine Color Yellow Urine Appearance Clear Urine Odor Normal Comment void x 1 in toilet missing measuring hat. Voiding Methods Toilet Laboratory Results WBC 11.68 k/cumm (4.4-10.8) H 09/02/19 06:20 RBC 5.49 m/cumm (4.50-6.00) 09/02/19 06:20 Hgb 15.3 g/dL (13.5-17.5) 09/02/19 06:20 Hct 47.0 % (40.0-50.0) 09/02/19 06:20 MCV 85.6 fL (80-95) 09/02/19 06:20 MCH 27.9 pg (27.0-33.0) 09/02/19 06:20 MCHC 32.6 g/dL (32.0-36.0) 09/02/19 06:20 RDW 15.2 % (11.8-14.1) H 09/02/19 06:20 Plt Count 128 x1000/uL (130-400) L 09/02/19 06:20 MPV 10.1 fL (8.0-11.0) 09/02/19 06:20 Immature Gran % 0.5 % 09/02/19 06:20 Neutrophils % 77.1 09/02/19 06:20 Lymphocytes % 8.4 09/02/19 06:20 Monocytes % 13.0 09/02/19 06:20 Eosinophils % 0.8 09/02/19 06:20 Basophils % 0.2 09/02/19 06:20 Absolute Neutrophils 9.01 k/cumm (1.2-6.7) H 09/02/19 06:20 Absolute Lymphocytes 0.98 k/cumm (1.2-3.4) L 09/02/19 06:20 Absolute Monocytes 1.52 k/cumm (0.11-0.7) H 09/02/19 06:20 Absolute Eosinophils 0.09 k/cumm (0.0-0.7) 09/02/19 06:20 Absolute Basophils 0.02 k/cumm (0.0-0.2) 09/02/19 06:20 Differential Comment Diff reviewed 09/02/19 06:20 RBC Morphology Normal 09/02/19 06:20 PT 10.7 sec (9.3-11.0) 09/02/19 06:20 INR Cancelled 09/02/19 08:30 Sodium 141 mmol/L (136-145) 09/02/19 06:20 Potassium 3.7 mmol/L (3.5-5.1) 09/02/19 06:20 Chloride 104 mmol/L (98-107) 09/02/19 06:20 Carbon Dioxide 29.1 mmol/L (21.0-32.0) 09/02/19 06:20 Anion Gap 7.9 mmol/L (3-11) 09/02/19 06:20 BUN 26 mg/dL (7-18) H 09/02/19 06:20 Creatinine 1.30 mg/dL (0.70-1.30) 09/02/19 06:20 Estimated GFR/1.73 m2 53.25 (mL/min/1.73m2) 09/02/19 06:20 Glucose 125 mg/dL (74-106) H 09/02/19 06:20 Lactate 2.0 mmol/L (0.6-1.4) H 09/01/19 21:45 Calcium 9.8 mg/dL (8.5-10.1) 09/02/19 06:20 Magnesium 2.1 mg/dL (1.8-2.4) 09/01/19 09:29 Total Bilirubin 2.7 mg/dL (0.2-1.0) H 09/02/19 06:20 AST 22 U/L (15-37) 09/02/19 06:20 ALT 21 U/L (16-63) 09/02/19 06:20 Alkaline Phosphatase 60 U/L (46-116) 09/02/19 06:20 Troponin I < 0.05 ng/mL (<0.06) 09/01/19 21:45 Total Protein 7.1 g/dL (6.4-8.2) 09/02/19 06:20 Albumin 3.4 g/dL (3.4-5.0) 09/02/19 06:20 Lipase 142 U/L (73-393) 09/01/19 09:29 Urine Color Yellow (Yellow) 09/01/19 10:55 Urine Clarity Clear (Clear) 09/01/19 10:55 Urine pH 7.0 (5-8) 09/01/19 10:55 Ur Specific [place] 1.015 (1.005-1.025) 09/01/19 10:55 Urine Protein 30 mg/dL (Negative) H 09/01/19 10:55 Urine Ketones Negative mg/dL (Negative) 09/01/19 10:55 Urine Blood Small (Negative) H 09/01/19 10:55 Urine Nitrite Negative (Negative) 09/01/19 10:55 Urine Bilirubin Negative (Negative) 09/01/19 10:55 Urine Urobilinogen 0.2 EU/dL (Up TO 0.2) 09/01/19 10:55 Ur Leukocyte Esterase Negative (Negative) 09/01/19 10:55 Urine RBC 5-10 HPF (0-2) H 09/01/19 10:55 Urine WBC Negative HPF (0-5) 09/01/19 10:55 Ur Epithelial Cells Negative HPF (Negative) 09/01/19 10:55 Urine Crystals Negative HPF (Negative) 09/01/19 10:55 Urine Bacteria Rare HPF (Negative) 09/01/19 10:55 Urine Casts Negative LPF (Negative) 09/01/19 10:55 Urine Mucus Negative (Negative) 09/01/19 10:55 Urine Other Negative (Negative) 09/01/19 10:55 Ur Culture Indicated? No 09/01/19 10:55 Urine Glucose Negative mg/dL (Negative) 09/01/19 10:55 COVID-19 PCR Negative (Negative) 09/01/19 12:30 Nasopharyn COVID-19 PCR Not Applicable 09/01/19 12:30 Ref Test [facility] 09/01/19 12:30
--- NOTE | 2019-09-02 10:00 | INITIAL_ITS ---
- If Service Date Differs Date of service: 09/02/19 Time of Service: 10:00 Care Management Initial Assess REASON FOR HOSPITALIZATION:: Biliary Colic PAST MEDICAL HISTORY/PAST SURGICAL HISTORY:: Medical History . Benign hypertension (Chronic 12/09/05). <140/85; BP was high at time of colonoscopy so Dr. Taylor started him on HCTZ 2005. High BP readings @ ophtho, urol . turns out to be 2' finesteride, Dr. Cleveland gamboa d/c'd .. will follow up in July 2018. 125/85 today, 06/2018, ik. BPH w/o urinary obs/LUTS (Chronic 02/15/11). nocturiaX1-2; INCR 3X 09/2012. Hyperlipidemia (Chronic 10/24/04). RISK 12% 11/2005; LDL goal 100 Need labs, [ ] Fall 201807/01/18. 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 MOCA 22 (09/2013). Obesity, Class II, BMI 35- 39.9, no comorbidity (Chronic 02/15/11). His goal 220 (100kg); 191=87kg=BMI 30. Pain in joint, other specified sites (Chronic 02/15/11) PREVIOUS FUNCTIONAL STATUS/SOCIAL/FAMILY SUPPORTS:: Raffy lives with his Oksana in a single family home in [place], [place]. They have no children. 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 He is independent in the communityy and with his ADLs and receives no community services. CURRENT FUNCTIONAL STATUS:: Raffy was lying in bed when CM met with him. He was polite and agreeable to answering questions although he was not overly talkative. Raffy shared that he has been in pain since last Friday. He stated that he has not seen the surgeon yet and is anxious to do so. He anticipates that he may need surgery but remains unclear about the plan. ADVANCE DIRECTIVES:: On file. JAMIE - Reny Mobley Has patient been provided with info about the portal/API?: Yes Did the patient sign up for the portal?: No CODE STATUS:: Full Code INSURANCE COVERAGE / FINANCIAL ISSUES:: Medicare. [email or web address] CURRENT HOME/COMMUNITY SERVICES/EQUIPMENT:: none PRIMARY CARE PHYSICIAN:: Elana Green POTENTIAL DISCHARGE NEEDS:: Follow up with surgeon, PCP and discharge plan of care PATIENT/FAMILY EDUCATION NEEDS:: Discharge plan, limitations. Follow up plan, [employer] TRANSPORTATION:: via private vehicle PLAN:: Raffy will likely be discharged home with no new services. He will follow up with his surgeon, PCP and discharge plan of care. He will transport via private vehicle with family. CM will continue to support patient, family and discharge pllanning needs.
--- NOTE | 2019-09-02 11:38 | PHA.REVIEW ---
Pharmacy Admission Review - Admission Clinical Review (Last Updated 09/01/19 @ 21:51 by Jennifer Rodriguez DO) Gallbladder sludge (Acute) Gallstones (Acute) Gallbladder sludge (Acute) Abdominal aortic aneurysm (Acute 09/10/10) hydrochlorothiazide Adverse Reaction (Mild, Verified 09/01/19 09:29) possible Erectile dysfunction Height 5 ft 8.9 in Weight 108.862 kg - Renal Dosing Renal Dosing: BUN 26 mg/dL (7-18) H 09/02/19 06:20 Creatinine 1.30 mg/dL (0.70-1.30) 09/02/19 06:20 Medications needing adjustments: Reviewed (Crcl ~55.9 mL/min using adjusted body weight, current meds okay) - Anticoagulation Anticoagulation: Hgb 15.3 g/dL (13.5-17.5) 09/02/19 06:20 Hct 47.0 % (40.0-50.0) 09/02/19 06:20 Plt Count 128 x1000/uL (130-400) L 09/02/19 06:20 INR Cancelled 09/02/19 08:30 Creatinine 1.30 mg/dL (0.70-1.30) 09/02/19 06:20 DVT Prohphylaxis: Reviewed Medications: Enoxaparin Therapeutic Anticoagulation: N/A - Opiate Usage Evaluate Pain Scale/Pains Meds: Reviewed Scheduled Bowel Reg ordered if on Opiates?: No (pt has not used morphine) - Relevant Labs Sodium 141 mmol/L (136-145) 09/02/19 06:20 Potassium 3.7 mmol/L (3.5-5.1) 09/02/19 06:20 Chloride 104 mmol/L (98-107) 09/02/19 06:20 Magnesium 2.1 mg/dL (1.8-2.4) 09/01/19 09:29 Electrolytes, C-Reactive P, ESR: Reviewed - DM Control DM Control: Glucose 125 mg/dL (74-106) H 09/02/19 06:20 Insulin Dosing: N/A - Heart Failure/IN Heart Failure/IN: Troponin I < 0.05 ng/mL (<0.06) 09/01/19 21:45 EF%, TYSON's, B-Blockers, Diuretics: N/A - BP Control BP Control: Blood Pressure 212/118 Blood Pressure 195/99 If elevated: Reviewed (BP this morning was before morning meds were given, monitor) - Qtc Review If Elevated: N/A - IV to PO Switch IV Medications: N/A - Home Meds Home Med List reviewed: Reviewed Relevent Home Meds Not ordered & why?: aspirin, furosemide - Current meds Current Medication Order Review: Intervened (adjusted morphine order to 2 mg syringe so nurses don't have to waste med every dose) - Comments Comments/Follow Ups: Watch BP, BG, and for med changes (need for BM meds, change from IV to PO).
[2019-09-02] MEDS: Normal Saline 1,000 ML 125 ML IV (13:10)
--- NOTE | 2019-09-02 13:45 | DI.RAD_ITS ---
EXAM: 2D digital imaging was performed. Low to CLINICAL HISTORY: RLQ pain/obstipation. COMPARISON: No exams were available for comparison TECHNIQUE: Supine views of the abdomen performed. FINDINGS: BOWEL GAS PATTERN: Nondistended. CALCIFICATIONS: No radiopaque calcifications. OSSEOUS STRUCTURES: Degenerative changes. OTHER FINDINGS: None. IMPRESSION: Nonobstructive bowel gas pattern. DATA REPOSITORY: RADIATION DOSE DELIVERED:
[2019-09-02] MEDS: Pantoprazole 40 MG VIAL IVP (16:10)
[2019-09-02] MEDS: Normal Saline Flush 10 ML SYR IVP (16:10)
[2019-09-02] MEDS: Enoxaparin 30 MG/0.3 ML SYR SC (16:11)
[2019-09-02] MEDS: Magnesium Citrate 300 ML BTL PO (16:56)
[2019-09-02 19:05] VITALS: BP 159/100; PULSE 98; RESP 18; TEMP 35.6; O2SAT 97
[2019-09-02] MEDS: Bisacodyl 10 MG SUPP PR (22:20)
--- NOTE | 2019-09-03 | DI.CT_ITS ---
EXAM: CT ABDOMEN PELVIS W CLINICAL HISTORY: elevated polly/obstipation TECHNIQUE: Imaging Protocol: Axial computed tomography images with coronal and sagittal reformatted images were created and reviewed CONTRAST MATERIAL: Intravenous: Omnipaque 350 Contrast volume:100 mL Oral: No COMPARISON: CT CT ABDOMEN PELVIS W from 09/01/2019 FINDINGS: ABDOMEN: Lung Bases: Normal where visualized. Liver: Normal density. Stable hepatic cyst. Portal, Superior Mesenteric, and Splenic Veins: Unremarkable. Gallbladder and Biliary Tract: Cholelithiasis. No biliary ductal dilatation. Gallbladder is distend ed. There does appear to be layering debris within the gallbladder suspicious for sludge. Pancreas: Normal density, no abnormal calcifications or inflammatory process. Spleen: Normal. Adrenals: No masses seen. Kidneys: Normal size, contour and axis. No radiodense stones or obstructive uropathy. No masses seen. Abdominal Aorta: Abdominal portion non-dilated. Atherosclerosis. Bowel: No obstruction or bowel wall thickening. Appendix is unremarkable. Peritoneal Cavity: No ascites, collection or mesenteric inflammatory response. Lymph Nodes: Within normal limits. Bones: Degenerative changes. Soft Tissues: Unremarkable. PELVIS: Bladder: Symmetric distention, no gross wall thickening. Reproductive Organs: Unremarkable as visualized. Lymph Nodes: Within normal limits. Bones: Degenerative changes. IMPRESSION: Cholelithiasis with gallbladder sludge gallbladder distension. No biliary ductal dilatation RADIATION DOSE DELIVERED: Total DLP DATA REPOSITORY: All CT scans at this facility are submitted to the National Radiology Data Registry (NRDR) Dose Index Registry (DIR) with the [employer] [place] [employer] (ACR). RADIATION OPTIMIZATION: All CT scans at this facility use at least one of these dose optimization te chniques: automated exposure control; mA and/or kV adjustment per patient size (includes targeted exa ms where dose is matched to clinical indication); or iterative reconstruction.
[2019-09-03] MEDS: PIPERACILLIN/TAZO 4.5 GM in Normal Saline 100 ML IVPB ×2 (00:44→09:28)
[2019-09-03 07:11] LABS: Abs Immature Grans 0.05 k/cumm (0.0-0.09); Absolute Basophil Count 0.02 k/cumm (0.0-0.2); Absolute Eosinophil Count 0.19 k/cumm (0.0-0.7); Absolute Lymphocyte Count 1.44 k/cumm (1.2-3.4); Absolute Monocyte Count 1.26 k/cumm (0.11-0.7); Absolute Neutrophil Count 6.89 k/cumm (1.2-6.7); Basophils % 0.2; Eosinophils % 1.9; HCT 45.2 % (40.0-50.0); HGB 14.7 g/dL (13.5-17.5); Immature Grans % 0.5 %; Lymphocytes % 14.6; Mean Corp. HGB Concentration 32.5 g/dL (32.0-36.0); Mean Corpuscular Hemoglobin 28.1 pg (27.0-33.0); Mean Corpuscular Volume 86.3 fL (80-95); Mean Platelet Volume 9.9 fL (8.0-11.0); Monocytes % 12.8; Platelet Count 147 x1000/uL (130-400); RBC 5.24 m/cumm (4.50-6.00); White Blood Cell Count 9.85 k/cumm (4.4-10.8)
[2019-09-03 07:27] LABS: ALT 29 U/L (16-63); AST 22 U/L (15-37); Alkaline Phosphatase 60 U/L (46-116); Anion Gap 6.7 mmol/L (3-11); BUN 22 mg/dL (7-18); Bilirubin, Total 2.9 mg/dL (0.2-1.0); CO2 28.3 mmol/L (21.0-32.0); CREATININE 1.27 mg/dL (0.70-1.30); Calcium 9.3 mg/dL (8.5-10.1); Chloride 105 mmol/L (98-107); Estimated GFR 54.71 (mL/min/1.73m2); Glucose 100 mg/dL (74-106); Potassium 3.6 mmol/L (3.5-5.1); Sodium 140 mmol/L (136-145); Total Protein 6.7 g/dL (6.4-8.2)
[2019-09-03] MEDS: Breeza Beverage 473 ML BTL PO ×2 (08:42→08:44)
--- NOTE | 2019-09-03 08:43 | PGE_ITS ---
Date of Service Date of service: 09/03/19 Time of Service: 08:44 Assessment and Plan Assessment and plan (1) Elevated bilirubin: Status: Acute (2) Obstipation: Status: Acute (3) Abdominal pain: Status: Acute Assessment and plan: Patient came to the ER with abdominal pain and nausea. He did have an elevated white count. I do not think his gallbladder is the etiology for the pain. Patient was having a period of obstipation, but this is appear to have passed. I am going to get a CT with contrast to ensure that there is no colon masses or tumors or anything that could have been causing the obstipation. He is a very poor historian. It is unclear the etiology of the elevated isolated bilirubin. It could be Gilbert's. He does not appear to have an acute surgical abdomen at this time. If the CT is unremarkable we will feed him and discharge him. At this point the etiology of the abdominal pain appears to have been obstipation/constipation. (4) Gallstones: Status: Acute (5) Gallbladder sludge: Status: Acute Subjective Subjective Interval history since last seen: pt said he had a lg bM. He does not know if there was blood in it. Nursing did not was not aware that the patient had a bowel movement. Patient says he has no abdominal pain. Patient says he is hungry. Exam [facility]EN[facility] Other: Unchanged. Chest Other: Patient denies chest pain, shortness of breath, productive cough. No pain to palpation Resp Effort & Inspection: normal respiratory effort and able to speak in complete sentences Auscultation: clear to auscultation bilaterally Cardio Rate: regular rate Rhythm: regular rhythm GI Inspection: large pannus Palpation: soft Auscultation: normal bowel sounds Other: Patient says he had a bowel movement overnight. Nurses were not aware of this. Patient cannot tell me if he has blood in it. Patient states he has no pain today. He is hungry. Objective Objective Clinical Data: Abnormal lab results 09/03/19 09/03/19 Range/Units 06:25 06:25 RDW 15.0 H (11.8-14.1) % Absolute Neutrophils 6.89 H (1.2-6.7) k/cumm Absolute Monocytes 1.26 H (0.11-0.7) k/cumm BUN 22 H (7-18) mg/dL Total Bilirubin 2.9 H (0.2-1.0) mg/dL Conjugated Bilirubin 0.50 H (0.00-0.20) mg/dL Albumin 3.0 L (3.4-5.0) g/dL Vital Signs Temperature 35.6 C L 09/02/19 19:05 Temperature Source Tympanic 09/02/19 19:05 Pulse 98 H 09/02/19 19:05 Pulse Rhythm Regular 09/03/19 00:50 Respiratory Rate 18 09/02/19 19:05 Respiratory Effort Non-Labored 09/03/19 00:50 Respiratory Depth Normal 09/03/19 00:50 Respiratory Pattern Normal 09/03/19 00:50 Blood Pressure 159/100 H 09/02/19 19:05 Blood Pressure Position Sitting 09/01/19 09:13 Pulse Oximetry 97 09/02/19 19:05 Oxygen Delivery Method Room Air 09/02/19 19:05 Oxygen Flow Rate 0 09/02/19 19:05 Pain Level 4 09/02/19 19:05 Comment 09/02/19 07:44 Intake & Output 09/02/19 09/02/19 09/03/19 11:59 23:59 11:59 Intake Total 1220 / 1920 700 / 1920 Output Total 1200 / 1650 450 / 1650 Balance 20 / 270 250 / 270 Intake: IV 1220 / 1320 100 / 1320 Oral 600 / 600 Output: Urine 1200 / 1650 450 / 1650 Other: Urine Color Straw Yellow Straw Urine Appearance Clear Clear Urine Odor Normal None Comment void x 1 in toilet missing measuring hat. Voiding Methods Bedside Commode Bedside Commode Laboratory Results WBC 9.85 k/cumm (4.4-10.8) 09/03/19 06:25 RBC 5.24 m/cumm (4.50-6.00) 09/03/19 06:25 Hgb 14.7 g/dL (13.5-17.5) 09/03/19 06:25 Hct 45.2 % (40.0-50.0) 09/03/19 06:25 MCV 86.3 fL (80-95) 09/03/19 06:25 MCH 28.1 pg (27.0-33.0) 09/03/19 06:25 MCHC 32.5 g/dL (32.0-36.0) 09/03/19 06:25 RDW 15.0 % (11.8-14.1) H 09/03/19 06:25 Plt Count 147 x1000/uL (130-400) 09/03/19 06:25 MPV 9.9 fL (8.0-11.0) 09/03/19 06:25 Immature Gran % 0.5 % 09/03/19 06:25 Neutrophils % 70.0 09/03/19 06:25 Lymphocytes % 14.6 09/03/19 06:25 Monocytes % 12.8 09/03/19 06:25 Eosinophils % 1.9 09/03/19 06:25 Basophils % 0.2 09/03/19 06:25 Absolute Neutrophils 6.89 k/cumm (1.2-6.7) H 09/03/19 06:25 Absolute Lymphocytes 1.44 k/cumm (1.2-3.4) 09/03/19 06:25 Absolute Monocytes 1.26 k/cumm (0.11-0.7) H 09/03/19 06:25 Absolute Eosinophils 0.19 k/cumm (0.0-0.7) 09/03/19 06:25 Absolute Basophils 0.02 k/cumm (0.0-0.2) 09/03/19 06:25 Differential Comment Diff reviewed 09/02/19 06:20 RBC Morphology Normal 09/02/19 06:20 PT 10.7 sec (9.3-11.0) 09/02/19 06:20 INR Cancelled 09/02/19 08:30 Sodium 140 mmol/L (136-145) 09/03/19 06:25 Potassium 3.6 mmol/L (3.5-5.1) 09/03/19 06:25 Chloride 105 mmol/L (98-107) 09/03/19 06:25 Carbon Dioxide 28.3 mmol/L (21.0-32.0) 09/03/19 06:25 Anion Gap 6.7 mmol/L (3-11) 09/03/19 06:25 BUN 22 mg/dL (7-18) H 09/03/19 06:25 Creatinine 1.27 mg/dL (0.70-1.30) 09/03/19 06:25 Estimated GFR/1.73 m2 54.71 (mL/min/1.73m2) 09/03/19 06:25 Glucose 100 mg/dL (74-106) 09/03/19 06:25 Lactate 2.0 mmol/L (0.6-1.4) H 09/01/19 21:45 Calcium 9.3 mg/dL (8.5-10.1) 09/03/19 06:25 Magnesium 2.1 mg/dL (1.8-2.4) 09/01/19 09:29 Total Bilirubin 2.9 mg/dL (0.2-1.0) H 09/03/19 06:25 Conjugated Bilirubin 0.50 mg/dL (0.00-0.20) H 09/03/19 06:25 AST 22 U/L (15-37) 09/03/19 06:25 ALT 29 U/L (16-63) 09/03/19 06:25 Alkaline Phosphatase 60 U/L (46-116) 09/03/19 06:25 Troponin I < 0.05 ng/mL (<0.06) 09/01/19 21:45 Total Protein 6.7 g/dL (6.4-8.2) 09/03/19 06:25 Albumin 3.0 g/dL (3.4-5.0) L 09/03/19 06:25 Lipase 142 U/L (73-393) 09/01/19 09:29 Urine Color Yellow (Yellow) 09/01/19 10:55 Urine Clarity Clear (Clear) 09/01/19 10:55 Urine pH 7.0 (5-8) 09/01/19 10:55 Ur Specific [place] 1.015 (1.005-1.025) 09/01/19 10:55 Urine Protein 30 mg/dL (Negative) H 09/01/19 10:55 Urine Ketones Negative mg/dL (Negative) 09/01/19 10:55 Urine Blood Small (Negative) H 09/01/19 10:55 Urine Nitrite Negative (Negative) 09/01/19 10:55 Urine Bilirubin Negative (Negative) 09/01/19 10:55 Urine Urobilinogen 0.2 EU/dL (Up TO 0.2) 09/01/19 10:55 Ur Leukocyte Esterase Negative (Negative) 09/01/19 10:55 Urine RBC 5-10 HPF (0-2) H 09/01/19 10:55 Urine WBC Negative HPF (0-5) 09/01/19 10:55 Ur Epithelial Cells Negative HPF (Negative) 09/01/19 10:55 Urine Crystals Negative HPF (Negative) 09/01/19 10:55 Urine Bacteria Rare HPF (Negative) 09/01/19 10:55 Urine Casts Negative LPF (Negative) 09/01/19 10:55 Urine Mucus Negative (Negative) 09/01/19 10:55 Urine Other Negative (Negative) 09/01/19 10:55 Ur Culture Indicated? No 09/01/19 10:55 Urine Glucose Negative mg/dL (Negative) 09/01/19 10:55 COVID-19 PCR Negative (Negative) 09/01/19 12:30 Nasopharyn COVID-19 PCR Not Applicable 09/01/19 12:30 Ref Test [facility] 09/01/19 12:30
[2019-09-03 09:14] VITALS: BP 142/85; PULSE 76; RESP 19; TEMP 35.6; O2SAT 93
[2019-09-03] MEDS: Lisinopril 20 MG TAB 40 MG PO (11:24)
[2019-09-03] MEDS: Omnipaque 350 MG/ML 100 ML BTL IV (11:38)
[2019-09-03] MEDS: Normal Saline - Diluent 50 ML VIAL IV (11:39)
[2019-09-03] MEDS: Normal Saline Flush 10 ML SYR IVP (11:40)
--- NOTE | 2019-09-03 15:56 | PDOC.CMPRO ---
- If Service Date Differs Date of service: 09/03/19 Time of Service: 15:56 Care Management Progress Note S/O:Raffy was sitting up in bed when CM met with him. He stated that he is feeling better and that he has less pain. At the time, Raffy was waiting to see his surgeon. He stated that he had had some tests done today and depending on the results, might be able to go home. A: Raffy is a 78 year old man admitted on 09/01/19 with biliary colic P: Raffy will likely be discharged home with no new services. He will follow up with his PCP and discharge plan of care and transport via private vehicle. CM will continue to support patient, family and discharge planning needs.
[2019-09-03 16:09] VITALS: BP 149/93; PULSE 86; RESP 21; TEMP 36.4; O2SAT 94
--- NOTE | 2019-09-03 16:31 | W.PM.DS.N ---
Date of service: 09/03/19 Time of Service: 16:31 DS: Diagnosis Discharge Diagnosis (1) Elevated bilirubin: Status: Acute (2) Obstipation: Status: Acute (3) Abdominal pain: Status: Acute (4) Gallstones: Status: Acute (5) Gallbladder sludge: Status: Acute Discharge Plan Disposition Patient Disposition: HOME Condition: Stable Discharge Details Chief Complaint: Abd Prob Clinical Impression: Gallbladder sludge Reason For Visit: BILIARY COLIC Admit Date/Time: 09/01/19 14:00 Admit Provider: Jennifer Rodriguez Attending Provider: Jennifer Rodriguez Primary Care Provider: Elana Green ED Provider: Leon Cuellar Hospital Course Hospital Course: Mr. Mobley was admitted on 08/[address] scan showed stones and sludge as well as a lot of stool in his right colon. He had not had a BM for 4 days. He complained of abdominal pain in the RLQ. US of the Gallbladder showed stones and sludge but no pericholecystic fluid or galbladder wall thickening. Patient finally had a BM today and felt better. Repeat CT scan with oral contrast was done and showed no colon mass. Patient ate without N/V or pain. We will discharge him to home with follow up with his PCP. His is worried that the lasix may have caused the constipation as that is the only thing that had changed prior to this happening. He was placed on 20 mg of Lasic BID for ankle swelling Discussed high fiber diet, hydration and activity to help with constipation. recommend stool softeners for a while to keep him regular Home Meds and New Rx's Prescriptions: New docusate sodium [Stool Softener] 100 mg capsule 100 mg PO BID Qty: 20 RF: 0 Continued furosemide [Lasix] 20 mg tablet 20 mg PO BID Qty: 60 RF: 0 lisinopril 40 mg tablet 40 mg PO DAILY Qty: 90 RF: 3 polyvinyl alcohol [Artificial Tears (polyvin alc)] 15 ML drops 1 drp Ophthalmic PRN PRNRF: 0 aspirin [Aspirin Low Dose] 81 MG tablet,delayed release (DR/EC) 81 mg PO RF: 0 acetaminophen [Acetaminophen Extra Strength] 500 MG tablet 1,000 mg PO PRN PRNRF: 0 Discharge Instructions Instructions: Constipation (DC) Referrals: Elana Green DO [Primary Care Provider] - Activity:: Activity as Tolerated Equipment/Supplies:: No Equipment Needed Diet:: high fiber Discharge Orders Discharge Orders: Discharge Order (Routine); Ordered 09/03/19 Ordered By: Katiana Johnson DS: Summary Status at Discharge Functional status at discharge: independent ambulation Overall status at discharge: patient is back to baseline Mental Status: mental status grossly normal Speech and Movement: speech and movement normal Mood: congruent mood Affect: normal affect Exam GI Inspection: normal to inspection Palpation: soft, no hepatosplenomegaly and nontender Auscultation: normal bowel sounds Psych Mental Status: mental status grossly normal Speech and Movement: speech and movement normal Mood: congruent mood Affect: normal affect DS: Data Vitals/I&O Vitals and I&O: Vital Signs Temperature 97.5 F L 09/03/19 16:09 Temperature Source Temporal Artery Scan 09/03/19 16:09 Pulse 86 09/03/19 16:09 Pulse Rhythm Regular 09/03/19 10:00 Respiratory Rate 21 09/03/19 16:09 Respiratory Effort Non-Labored 09/03/19 10:00 Respiratory Depth Normal 09/03/19 10:00 Respiratory Pattern Normal 09/03/19 10:00 Blood Pressure 149/93 H 09/03/19 16:09 Blood Pressure Position Sitting 09/01/19 09:13 Pulse Oximetry 94 L 09/03/19 16:09 Oxygen Delivery Method Room Air 09/03/19 16:09 Oxygen Flow Rate 0 09/03/19 16:09 Pain Level 2 09/03/19 16:09 Comment 09/02/19 07:44 Intake & Output 09/02/19 09/03/19 09/03/19 23:59 11:59 23:59 Intake Total 700 / 1920 100 / 910 810 / 910 Output Total 450 / 1650 Balance 250 / 270 100 / 910 810 / 910 Intake: IV 100 / 1320 100 / 100 Oral 600 / 600 810 / 810 Output: Urine 450 / 1650 Other: Urine Color Yellow Straw Urine Appearance Clear Urine Odor None Stool Size Large Stool Characteristics Formed Hard Voiding Methods Bedside Commode Data Completed and Pending Labs on day of discharge: Labs from last 24 hours 09/03/19 09/03/19 06:25 06:25 WBC 9.85 RBC 5.24 Hgb 14.7 Hct 45.2 MCV 86.3 MCH 28.1 MCHC 32.5 RDW 15.0 H Plt Count 147 MPV 9.9 Immature Gran % 0.5 Neutrophils % 70.0 Lymphocytes % 14.6 Monocytes % 12.8 Eosinophils % 1.9 Basophils % 0.2 Absolute Neutrophils 6.89 H Absolute Lymphocytes 1.44 Absolute Monocytes 1.26 H Absolute Eosinophils 0.19 Absolute Basophils 0.02 Sodium 140 Potassium 3.6 Chloride 105 Carbon Dioxide 28.3 Anion Gap 6.7 BUN 22 H Creatinine 1.27 Estimated GFR/1.73 m2 54.71 Glucose 100 Calcium 9.3 Total Bilirubin 2.9 H Conjugated Bilirubin 0.50 H AST 22 ALT 29 Alkaline Phosphatase 60 Total Protein 6.7 Albumin 3.0 L [facility] Medical History Abdominal pain (Acute) Benign hypertension (Chronic 12/09/05) <140/85; BP was high at time of colonoscopy so Dr. Taylor started him on HCTZ 2005. High BP readings @ ophtho, urol . turns out to be 2' finesteride, Dr. Smallwood d/c'd .. will follow up in July 2018. 125/85 today, 06/2018, ik. 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
== END 2019-09-03 18:00 | disposition home or self-care (01) | DRG 446 ==
LOC: ER 14:31 → MS 15:08
PROVIDERS: Admitting Provider Surgery; Emergency Provider Emergency Medicine; PCP Student in an Organized Health Care Education/Training Program; Visit Provider Surgery
DX: K80.20 Calculus of gallbladder without cholecystitis without obstruction (principal); K59.00 Constipation, unspecified; I10 Essential (primary) hypertension; N40.0 Benign prostatic hyperplasia without lower urinary tract symptoms; E78.5 Hyperlipidemia, unspecified; Z68.35 Body mass index [BMI] 35.0-35.9, adult; Z87.891 Personal history of nicotine dependence; R41.3 Other amnesia; M25.50 Pain in unspecified joint; E86.0 Dehydration; Z11.59 Encounter for screening for other viral diseases; R78.89 Finding of other specified substances, not normally found in blood
CPT/HCPCS: 36415; 80053; 83690; 93005; 93306; 96361; 96365; 96366; 99223; 99232; 99233; 99238; 99285; U0003; 74018; 74177; 76705; 81003; 81015; 82248; 83605; 83735; 84484; 85025; 85610; 93010; J1650; J2543; J3490

== ENCOUNTER 2019-12-30 14:38 | Inpatient (IN) | payer MEDICARE, SELFPAY ==
[2019-12-30] VITALS (57 sets, daily range): BP systolic 102–222; BP diastolic 69–119; PULSE 69–102; RESP 14–27; TEMP 36.3–36.5; O2SAT 90–97
--- NOTE | 2019-12-30 14:30 | RT.EKG_ITS ---
APPROVED REPORT Exam: Resting ECG Patient Location: E HR:87 bpm ECG Measurements Heart Rate 87 AXIS IN 231 P 26 QRSd 104 QRS -29 QT 376 T 111 QTc 452 Conclusion Sinus rhythm...normal P axis, V-rate 60- 99 Prolonged IN interval...IN >220, V-rate 50- 90 Left ventricular hypertrophy...multiple voltage criteria Inferior infarct, old...Q >35mS, II III aVF Nonspecific T abnormalities, lateral leads...T <-0.10mV, I aVL V5 V6 Less than 1mm ST depression in I and aVL. T wave inversion in aVL. No STEMI. I have reviewed and interpreted ECG and agree with software generated interpretation.
--- NOTE | 2019-12-30 14:45 | DI.RAD_ITS ---
EXAM: XR PORTABLE CHEST AP CLINICAL HISTORY: SOB, PUI TECHNIQUE: 2D digital imaging was performed. COMPARISON: CR CHEST 2 VIEWS PA,LAT from 09/10/2010 FINDINGS: MEDIASTINUM: Normal. HEART: Mild cardiomegaly. PULMONARY VASCULATURE: Normal. LUNGS: No focal consolidating infiltrates. PLEURAL SPACE: No pleural effusion or pneumothorax. BONE:Within normal limits for the patient's age. OTHER FINDINGS:Low lung volumes. IMPRESSION: No acute pulmonary findings. DATA REPOSITORY: RADIATION DOSE DELIVERED:
--- NOTE | 2019-12-30 14:51 | W.ED.GENAD ---
Discharge Plan Disposition Patient Disposition: [facility] INPATIENT Condition: Serious Discharge Details Clinical Impression: Gallstone pancreatitis Admit Date/Time: 12/30/19 19:31 Admit Provider: Jennifer Rodriguez Attending Provider: Jennifer Rodriguez Primary Care Provider: Elana Green ED Provider: David Pollard Discharge Data Discharge Date/Time-TO BE ENTERED AT DEPARTURE: 12/30/19 21:13 Medical Decision Making <Funmi Luevano - Last Filed: 12/31/19 16:31> 79-year-old male presents to the ER with chief complaint of shortness of breath. He reports feeling unwell yesterday, woke up at 830 this morning with midsternal crushing chest pain rated 10 out of 10 and increased shortness of breath. He denies any productive cough, denies fever. He does have a history of obesity, hypertension, gallstones, and CHF which he takes furosemide 20 mg and lisinopril 40 mg. Work-up ordered which includes CBC, CMP, D-dimer, ferritin, proBNP serial troponins. EKG was reviewed by Kat Smiley MD ER attending, please see her official read and report. There was an old EKG available for review. Nitroglycerin 0.4 mg sublingual x3 as needed chest pain and/or systolic blood pressure ordered, 324 mg chewable aspirin ordered. Differential diagnosis includes Covid, pneumonia, PE, coronary artery disease, NSTEMI, CHF exacerbation. 1543: Spoke with patient's who reports he called her while at work and said he had vomited a few times and was having heart burn after eating a little elisabet cake. 1659: Patient received 2 sublingual 0.4 mg nitro which brought his blood pressure down to 102/69 his chest pain came down to a 4 out of 10. We will hold the last nitro due to the blood pressure drop. Care to be handed off to oncoming provider Dr. Latrice SHEEHAN, discussed patient case and details, verbalized understanding. <David Pollard MD - Last Filed: 12/30/19 20:02> 16:00 --care signed out by LYNN Luevano with plan to follow-up on CT chest to assess for pulmonary embolism. Lipase and hepatitis panel were added to labs. 17:30 --CT interpreted by radiology:FINDINGS: Pulmonary arteries: No pulmonary emboli. Aorta: No aortic aneurysm. No aortic dissection. Lungs: Limited by motion. No consolidation. No masses. Pleural space: No pleural effusion. No pneumothorax. Heart: Minimal cardiomegaly, no pericardial effusion. Lymph nodes: No significant adenopathy. Diaphragm: Right hemidiaphragm elevation. Gallbladder and bile ducts: Cholelithiasis. Bones/joints: No acute findings. Soft tissues: Unremarkable. IMPRESSION: No pulmonary embolism. Patient was reassessed and continues to have positional and pleuritic lower anterior chest discomfort and also has abdominal discomfort. Patient is not a great historian. He does have tenderness in his upper abdomen as well as left lower abdomen. Cholelithiasis is noted on CT of the chest. LFTs are significantly elevated. Lipase is still pending. I called the lab to request lipase results. I attempted bedside [id number] ultrasound of the right upper quadrant and was unable to visualize gallbladder given bowel gas pattern. Plan to proceed to CT of the abdomen pelvis. Plan for troponin, lactate, lipase, urinalysis and VBG are pending at this time. 19:54 --additional labs reviewed: Delta troponin negative. Lipase greater than 15,000. VBG with no significant abnormality. CT abd/pelv interpreted by radiology: FINDINGS: Liver: Hepatic hypodensities consistent with cysts. Gallbladder and bile ducts: Cholelithiasis. No biliary ductal dilatation. Pancreas: No acute findings. No ductal dilation. Spleen: No splenomegaly. Adrenal glands: No mass. Kidneys and ureters: No hydronephrosis. Stomach and bowel: No acute findings. No obstruction. No mucosal thickening. Appendix: No evidence of appendicitis. Intraperitoneal space: Unremarkable. No free air. No significant fluid collection. Vasculature: No abdominal aortic aneurysm. Lymph nodes: No significant adenopathy. Urinary bladder: Unremarkable as visualized. Reproductive: Unremarkable as visualized. Bones/joints: No acute findings. Soft tissues: Unremarkable. IMPRESSION: No acute findings. I spoke with GI and hospitalist [employer] consultant at [facility], discussed ED presentation and and course including all diagnostics, CT imaging sent for review, GI recommends no transfer, recommends admit to general surgery and continue IVF and analgesia. I called and spoke with Dr. Rodriguez, discussed ED presentation and course, see will admit for gallstone pancreatitis. Care transition to Dr. Rodriguez. Lab Data Lab results reviewed: Yes I reviewed the patient's lab results. Labs: Laboratory Tests Range/Units 12/30/19 12/30/19 12/30/19 14:52 14:52 14:52 WBC (4.4-10.8) 10^3/uL 10.20 RBC (4.36-5.78) 10^6/uL 5.39 Hgb (13.5-17.5) g/dL 14.8 Hct (40.0-50.0) % 46.6 MCV (80-95) fL 86.5 MCH (27.0-33.0) pg 27.5 MCHC (32.0-36.0) % 31.8 L RDW (11.8-14.1) % 14.4 H Plt Count (130-400) 10^3/uL 178 MPV (8.0-11.0) fL 9.7 Immature Gran % 0.6 Neutrophils % 80.4 Lymphocytes % 9.1 Monocytes % 9.4 Eosinophils % 0.2 Basophils % 0.3 Nucleated RBC % % 0 Absolute Neutrophils (1.2-6.7) 10^3/uL 8.20 H Absolute Lymphocytes (1.2-3.4) 10^3/uL 0.93 L Absolute Monocytes (0.1-0.8) 10^3/uL 0.96 H Absolute Eosinophils (0.0-0.7) 10^3/uL 0.02 Absolute Basophils (0.0-0.2) 10^3/uL 0.03 D-Dimer (<500) ng/mlFEU 2372 H VBG pH (7.31-7.41) VBG pCO2 (41-51) mmHg VBG pO2 mmHg VBG HCO3 (23-28) mmol/L VBG Total CO2 (24-29) mmol/L VBG O2 Saturation % VBG Base Excess (-2-3) mmol/L VBG Lactate (0.6-1.4) mmol/L Sodium (136-145) mmol/L 137 Potassium (3.5-5.1) mmol/L 4.0 Chloride (98-107) mmol/L 103 Carbon Dioxide (21.0-32.0) mmol/L 27.9 Anion Gap (3-11) mmol/L 6.1 BUN (7-18) mg/dL 26 H Creatinine (0.70-1.30) mg/dL 1.23 Estimated GFR/1.73 m2 (mL/min/1.73m2) 56.62 Glucose (74-106) mg/dL 160 H Calcium (8.5-10.1) mg/dL 10.2 H Ferritin (26-388) ng/mL > 2000 H Total Bilirubin (0.2-1.0) mg/dL 4.0 H AST (15-37) U/L 421 H ALT (16-63) U/L 654 H Alkaline Phosphatase (46-116) U/L 423 H Lactate Dehydrogenase (85-227) U/L 467 H Troponin I (<0.06) ng/mL < 0.05 C-Reactive Protein (0.0-0.3) mg/dL 0.97 H NT-Pro-B Natriuret Pep (<300) pg/mL Total Protein (6.4-8.2) g/dL 7.9 Albumin (3.4-5.0) g/dL 3.7 Lipase (73-393) U/L Urine Color (Yellow) Urine Clarity (Clear) Urine pH (5-8) Ur Specific [place] (1.005-1.025) Urine Protein (Negative) mg/dL Urine Ketones (Negative) mg/dL Urine Blood (Negative) Urine Nitrite (Negative) Urine Bilirubin (Negative) Urine Urobilinogen (Up TO 0.2) EU/dL Ur Leukocyte Esterase (Negative) Urine RBC (0-2) HPF Urine WBC (0-5) HPF Ur Epithelial Cells (Negative) HPF Urine Crystals (Negative) HPF Urine Bacteria (Negative) HPF Urine Casts (Negative) LPF Urine Mucus (Negative) Ur Culture Indicated? Urine Glucose (Negative) mg/dL Acetaminophen (10-30) ug/mL Range/Units 12/30/19 12/30/19 12/30/19 14:52 14:52 17:35 WBC (4.4-10.8) 10^3/uL RBC (4.36-5.78) 10^6/uL Hgb (13.5-17.5) g/dL Hct (40.0-50.0) % MCV (80-95) fL MCH (27.0-33.0) pg MCHC (32.0-36.0) % RDW (11.8-14.1) % Plt Count (130-400) 10^3/uL MPV (8.0-11.0) fL Immature Gran % Neutrophils % Lymphocytes % Monocytes % Eosinophils % Basophils % Nucleated RBC % % Absolute Neutrophils (1.2-6.7) 10^3/uL Absolute Lymphocytes (1.2-3.4) 10^3/uL Absolute Monocytes (0.1-0.8) 10^3/uL Absolute Eosinophils (0.0-0.7) 10^3/uL Absolute Basophils (0.0-0.2) 10^3/uL D-Dimer (<500) ng/mlFEU VBG pH (7.31-7.41) VBG pCO2 (41-51) mmHg VBG pO2 mmHg VBG HCO3 (23-28) mmol/L VBG Total CO2 (24-29) mmol/L VBG O2 Saturation % VBG Base Excess (-2-3) mmol/L VBG Lactate (0.6-1.4) mmol/L Sodium (136-145) mmol/L Potassium (3.5-5.1) mmol/L Chloride (98-107) mmol/L Carbon Dioxide (21.0-32.0) mmol/L Anion Gap (3-11) mmol/L BUN (7-18) mg/dL Creatinine (0.70-1.30) mg/dL Estimated GFR/1.73 m2 (mL/min/1.73m2) Glucose (74-106) mg/dL Calcium (8.5-10.1) mg/dL Ferritin (26-388) ng/mL Total Bilirubin (0.2-1.0) mg/dL AST (15-37) U/L ALT (16-63) U/L Alkaline Phosphatase (46-116) U/L Lactate Dehydrogenase (85-227) U/L Troponin I (<0.06) ng/mL C-Reactive Protein (0.0-0.3) mg/dL NT-Pro-B Natriuret Pep (<300) pg/mL 803 H Total Protein (6.4-8.2) g/dL Albumin (3.4-5.0) g/dL Lipase (73-393) U/L > 70724 H Urine Color (Yellow) Yellow Urine Clarity (Clear) Clear Urine pH (5-8) 5.0 Ur Specific [place] (1.005-1.025) 1.015 Urine Protein (Negative) mg/dL Trace H Urine Ketones (Negative) mg/dL Trace H Urine Blood (Negative) Moderate H Urine Nitrite (Negative) Negative Urine Bilirubin (Negative) Small H Urine Urobilinogen (Up TO 0.2) EU/dL 1.0 H Ur Leukocyte Esterase (Negative) Negative Urine RBC (0-2) HPF 5-10 H Urine WBC (0-5) HPF 0-2 Ur Epithelial Cells (Negative) HPF Few Urine Crystals (Negative) HPF Negative Urine Bacteria (Negative) HPF Negative Urine Casts (Negative) LPF Negative Urine Mucus (Negative) Negative Ur Culture Indicated? No Urine Glucose (Negative) mg/dL Negative Acetaminophen (10-30) ug/mL < 2 Range/Units 12/30/19 12/30/19 12/30/19 17:37 17:37 17:37 WBC (4.4-10.8) 10^3/uL RBC (4.36-5.78) 10^6/uL Hgb (13.5-17.5) g/dL Hct (40.0-50.0) % MCV (80-95) fL MCH (27.0-33.0) pg MCHC (32.0-36.0) % RDW (11.8-14.1) % Plt Count (130-400) 10^3/uL MPV (8.0-11.0) fL Immature Gran % Neutrophils % Lymphocytes % Monocytes % Eosinophils % Basophils % Nucleated RBC % % Absolute Neutrophils (1.2-6.7) 10^3/uL Absolute Lymphocytes (1.2-3.4) 10^3/uL Absolute Monocytes (0.1-0.8) 10^3/uL Absolute Eosinophils (0.0-0.7) 10^3/uL Absolute Basophils (0.0-0.2) 10^3/uL D-Dimer (<500) ng/mlFEU VBG pH (7.31-7.41) 7.33 VBG pCO2 (41-51) mmHg 55 H VBG pO2 mmHg 29 VBG HCO3 (23-28) mmol/L 29 H VBG Total CO2 (24-29) mmol/L 26 VBG O2 Saturation % 54 VBG Base Excess (-2-3) mmol/L 3 VBG Lactate (0.6-1.4) mmol/L 1.0 Sodium (136-145) mmol/L Potassium (3.5-5.1) mmol/L Chloride (98-107) mmol/L Carbon Dioxide (21.0-32.0) mmol/L Anion Gap (3-11) mmol/L BUN (7-18) mg/dL Creatinine (0.70-1.30) mg/dL Estimated GFR/1.73 m2 (mL/min/1.73m2) Glucose (74-106) mg/dL Calcium (8.5-10.1) mg/dL Ferritin (26-388) ng/mL Total Bilirubin (0.2-1.0) mg/dL AST (15-37) U/L ALT (16-63) U/L Alkaline Phosphatase (46-116) U/L Lactate Dehydrogenase (85-227) U/L Troponin I (<0.06) ng/mL < 0.05 C-Reactive Protein (0.0-0.3) mg/dL NT-Pro-B Natriuret Pep (<300) pg/mL Total Protein (6.4-8.2) g/dL Albumin (3.4-5.0) g/dL Lipase (73-393) U/L Urine Color (Yellow) Urine Clarity (Clear) Urine pH (5-8) Ur Specific [place] (1.005-1.025) Urine Protein (Negative) mg/dL Urine Ketones (Negative) mg/dL Urine Blood (Negative) Urine Nitrite (Negative) Urine Bilirubin (Negative) Urine Urobilinogen (Up TO 0.2) EU/dL Ur Leukocyte Esterase (Negative) Urine RBC (0-2) HPF Urine WBC (0-5) HPF Ur Epithelial Cells (Negative) HPF Urine Crystals (Negative) HPF Urine Bacteria (Negative) HPF Urine Casts (Negative) LPF Urine Mucus (Negative) Ur Culture Indicated? Urine Glucose (Negative) mg/dL Acetaminophen (10-30) ug/mL HPI <Funmi Luevano - Last Filed: 12/31/19 16:31> General Mode of arrival: wheelchair. Date/Time Provider Initiated Documentation: 12/30/19 14:47. Limitations to Documentation: no limitations. Information obtained by: patient. HPI Narrative: 79-year-old male presents to the ER with chief complaint of shortness of breath. He reports feeling unwell yesterday, woke up at 830 this morning with midsternal crushing chest pain rated 10 out of 10 and increased shortness of breath. He denies any productive cough, denies fever. He does have a history of obesity, hypertension, gallstones, and CHF which he takes furosemide 20 mg and lisinopril 40 mg. Related Data Home Medications Medication Instructions Recorded Confirmed acetaminophen [Acetaminophen Extra 1,000 mg PO PRN PRN 06/11/12 12/30/19 Strength] aspirin [Aspirin Low Dose] 81 mg PO M-W-F tab-cap 06/11/12 12/30/19 polyvinyl alcohol [Artificial 1 drp OPHTHALMIC PRN PRN 06/11/12 12/30/19 Tears (polyvin alc)] furosemide 20 mg tablet 20 mg PO BID #60 tab 07/28/19 12/30/19 lisinopril 40 mg tablet 40 mg PO DAILY #90 tab 07/28/19 12/30/19 docusate sodium [Stool Softener] 100 mg PO BID #20 cap 09/03/19 12/30/19 Previous Rx's Medication Instructions Recorded furosemide 20 mg tablet 20 mg PO BID #60 tab 07/28/19 lisinopril 40 mg tablet 40 mg PO DAILY #90 tab 07/28/19 docusate sodium [Stool Softener] 100 mg PO BID #20 cap 09/03/19 Allergies Allergy/AdvReac Type Severity Reaction Status Date / Time hydrochlorothiazide AdvReac Mild possible Verified 12/30/19 15:02 Erectile dysfunction General THALIA: 3 Review of Systems <Funmi Luevano - Last Filed: 12/31/19 16:31> Narrative: Constitutional: Negative for weight loss, alert and oriented, well groomed, obese body habitus, appears uncomfortable and has increase wob. HEENT: Denies trauma, headaches, blurry vision, nasal discharge, sore throat, trouble swallowing. Chest: Denies palpitations, irregular rhythm, positive chest pain. Respiratory: Denies cough, hemoptysis. Positive shortness of breath. GI: Denies abdominal pain, nausea, vomiting, diarrhea, constipation. : Denies dysuria, hematuria, flank pain, rectal bleeding. Neuro: Denies dizziness, blurry vision, weakness, syncope, headache or facial numbness. Hematologic: Denies easy bruising, intolerance to heat or cold, hair loss. PFSH <Funmi Luevano - Last Filed: 12/31/19 16:31> Medical History Abdominal pain Benign hypertension (12/09/05) <140/85; BP was high at time of colonoscopy so Dr. Taylor started him on HCTZ 2005. High BP readings @ ophtho, urol . turns out to be 2' finesteride, Dr. Smallwood d/c'd .. will follow up in July 2018. 125/85 today, 06/2018, ik. BPH w/o urinary obs/LUTS (02/15/11) nocturiaX1-2; INCR 3X 09/2012 Elevated bilirubin Gallbladder sludge Gallstones Hyperlipidemia (10/24/04) RISK 12% 11/2005; LDL goal 100 Need labs, [ ] fall 201807/01/18 Impotence, organic (02/15/11) Memory disturbance (04/25/14) MOCA 22 (09/2013) Obesity, Class II, BMI 35-39.9, no comorbidity (02/15/11) His goal 220 (100kg); 191=87kg=BMI 30 Obstipation Pain in joint, other specified sites (02/15/11) Surgical History Arthroscopy (02/10/84) in CT, Left knee Family History Son Age: 57 No problems noted. 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 Appears stated age. obese body habitus. Head: Normocephalic, no trauma. Eyes: Pupils PERRLA, Red reflex noted, EOM's intact. Eyelids symmetrical without lesions, discharge, or swelling. ENT: Bilateral TM's WNL, External ear normal to inspection, no mastoid TTP, swelling, or erythema, Nasal turbinates WNL, no nasal discharge. Normal dentition, Posterior pharynx WNL, no exudate. Chest: RRR, Normal S1, S2, distal pulses intact. Patient is hypertensive upon arrival. Reproducible chest pain with palpation. Resp: Diminished lung sounds, increased expiratory time. Musculoskeletal: Tripod, 2+ edema noted to bilateral lower extremities. Skin: No suspicious rashes or lesions. Capillary refill less than 2 sec. Neurologic: Cranial nerves II-XII intact. Alert and oriented x 3. DTR's intact. Hematologic/Lymphatic: No ecchymosis, no lymphadenopathy. Sign Out <Funmi Luevano - Last Filed: 12/31/19 16:31> Sign Out Data: Sign Out Comment: Pending labs, CXR, serial troponin, re-eval. Last updated by Funmi Luevano at 12/30/19 15:37
[2019-12-30 15:11] LABS: Abs Immature Grans 0.06 10^3/uL (0.0-0.06); Absolute Basophil Count 0.03 10^3/uL (0.0-0.2); Absolute Eosinophil Count 0.02 10^3/uL (0.0-0.7); Absolute Lymphocyte Count 0.93 10^3/uL (1.2-3.4); Absolute Monocyte Count 0.96 10^3/uL (0.1-0.8); Basophils % 0.3; Eosinophils % 0.2; HCT 46.6 % (40.0-50.0); HGB 14.8 g/dL (13.5-17.5); Immature Grans % 0.6; Lymphocytes % 9.1; MCH 27.5 pg (27.0-33.0); MCHC 31.8 % (32.0-36.0); MCV 86.5 fL (80-95); MPV 9.7 fL (8.0-11.0); Monocytes % 9.4; Neutrophils % 80.4; Nucleated RBC 0 %; Platelet Count 178 10^3/uL (130-400); RBC 5.39 10^6/uL (4.36-5.78); RDW 14.4 % (11.8-14.1); RDW-SD 45.5 fL
[2019-12-30 15:30] LABS: ALT 654 U/L (16-63); AST 421 U/L (15-37); Albumin 3.7 g/dL (3.4-5.0); Alkaline Phosphatase 423 U/L (46-116); Anion Gap 6.1 mmol/L (3-11); BUN 26 mg/dL (7-18); C-Reactive Protein 0.97 mg/dL (0.0-0.3); CO2 27.9 mmol/L (21.0-32.0); CREATININE 1.23 mg/dL (0.70-1.30); Calcium 10.2 mg/dL (8.5-10.1); Chloride 103 mmol/L (98-107); Estimated GFR 56.62 (mL/min/1.73m2); Glucose 160 mg/dL (74-106); LDH 467 U/L (85-227); Sodium 137 mmol/L (136-145); Total Protein 7.9 g/dL (6.4-8.2)
--- NOTE | 2019-12-30 15:30 | DI.CT_ITS ---
EXAM: CT CHEST PE CTA CLINICAL HISTORY: SOB, chest pain, elevated d-dimer. TECHNIQUE: Imaging Protocol: Axial CT angiography was performed with multi-slice acquisition and mu lti-planar and/or 3D reconstructions. CONTRAST MATERIAL: Intravenous: Omnipaque 350 Contrast volume:structured data in ml COMPARISON: CT CT ABDOMEN PELVIS WO from 12/30/2019 FINDINGS: The examination is limited due to patient motion artifact. Pulmonary Arteries: No evidence of filling defect to suggest pulmonary emboli. Tracheobronchial tree: Patent where visualized. Mediastinum and O[place]a: No dominant adenopathy or fluid collection. Pulmonary parenchyma: No consolidation or dominant measurable mass. Limited by patient motion. Pleura: No effusion or pneumothorax. Heart: Mild cardiomegaly. Mild coronary artery calcification. No significant pericardial effusion. Aorta: Thoracic aorta non-dilated. Mild atherosclerosis. Upper abdomen: Cholelithiasis. Stable hepatic cyst. Bones: No acute abnormality. Soft tissues: Unremarkable. IMPRESSION: 1. No evidence of pulmonary embolism, thoracic aortic dissection or aneurysm. 2. Examination limited by patient motion. RADIATION DOSE DELIVERED: 475.31mGy.cm Total DLP DATA REPOSITORY: All CT scans at this facility are submitted to the National Radiology Data Registry (NRDR) Dose Index Registry (DIR) with the [employer] (ACR). RADIATION OPTIMIZATION: All CT scans at this facility use at least one of these dose optimization te chniques: automated exposure control; mA and/or kV adjustment per patient size (includes targeted exa ms where dose is matched to clinical indication); or iterative reconstruction.
[2019-12-30 15:32] LABS: NT-proBNP 803 pg/mL (<300)
[2019-12-30 15:38] LABS: Troponin I < 0.05 ng/mL (<0.06)
[2019-12-30] MEDS: Aspirin 81 MG CHEW 324 MG CH (15:38)
[2019-12-30] MEDS: Normal Saline Flush 10 ML SYR IVP ×3 (15:40→22:00)
[2019-12-30] MEDS: nitroGLYcerin 0.4 MG TAB SL ×2 (15:40→15:46)
[2019-12-30 15:42] LABS: D-Dimer 2372 ng/mlFEU (<500)
--- NOTE | 2019-12-30 16:04 | DI.VRAD_ITS ---
PROCEDURE INFORMATION: Exam: XR Chest, 1 View Exam date and time: 12/30/2019 3:49 PM Age: 79 years old Clinical indication: Shortness of breath; Patient HX: SOB TECHNIQUE: Imaging protocol: XR of the chest Views: 1 view. COMPARISON: No relevant prior studies available. FINDINGS: Lungs: Nonspecific interstitial thickening. No consolidation. Pleural space: Unremarkable. No pleural effusion. No pneumothorax. Heart/Mediastinum: Borderline minimal cardiomegaly. Bones/joints: No acute findings. IMPRESSION: No acute findings. Dictated and Authenticated by: Norm Reynoso MD. Ordering:KEYSHAWN Choudhary MD
[2019-12-30] MEDS: Omnipaque 350 MG/ML 100 ML BTL IJ (16:25)
[2019-12-30] MEDS: Normal Saline - Diluent 50 ML VIAL IV (16:26)
[2019-12-30 16:30] LABS: Acetaminophen < 2 ug/mL (10-30); Ferritin > 2000 ng/mL (26-388)
--- NOTE | 2019-12-30 16:30 | NUR.NOTE ---
Nursing Note:RN to CT with patient
--- NOTE | 2019-12-30 16:49 | NUR.NOTE ---
Nursing Note:States he had been taking Tylenol 500 mg tabs x 2 daily for 1 month. States he was taking them for back pain r/t stacking firewood. Stopped taking them 2 weeks ago.
--- NOTE | 2019-12-30 16:55 | DI.VRAD_ITS ---
PROCEDURE INFORMATION: Exam: CT Angiography Chest With Contrast Exam date and time: 12/30/2019 3:45 PM Age: 79 years old Clinical indication: Shortness of breath; Patient HX: Chest pain, elevated d-dimer. ; Additional info: Best images obtained only able to inject at 3.5 ml per sec. Due to iv capability. Patient unable to hold breath for exam. TECHNIQUE: Imaging protocol: Computed tomographic angiography of the chest with intravenous contrast. 3D rendering (Not supervised by radiologist): MIP and/or 3D reconstructed images were created by the technologist. Radiation optimization: All CT scans at this facility use at least one of these dose optimization techniques: automated exposure control; mA and/or kV adjustment per patient size (includes targeted exams where dose is matched to clinical indication); or iterative reconstruction. Contrast material: OMNIPAQUE 350; Contrast volume: 100 ml; Contrast route: INTRAVENOUS (IV); COMPARISON: CR XR PORTABLE CHEST AP 12/30/2019 3:33 PM FINDINGS: Pulmonary arteries: No pulmonary emboli. Aorta: No aortic aneurysm. No aortic dissection. Lungs: Limited by motion. No consolidation. No masses. Pleural space: No pleural effusion. No pneumothorax. Heart: Minimal cardiomegaly, no pericardial effusion. Lymph nodes: No significant adenopathy. Diaphragm: Right hemidiaphragm elevation. Gallbladder and bile ducts: Cholelithiasis. Bones/joints: No acute findings. Soft tissues: Unremarkable. IMPRESSION: No pulmonary embolism. Dictated and Authenticated by: Norm Reynoso MD. Ordering:KEYSHAWN Choudhary MD
--- NOTE | 2019-12-30 17:30 | DI.CT_ITS ---
EXAM: CT ABDOMEN PELVIS WO CLINICAL HISTORY: pain, elevated LFTs, SOB. TECHNIQUE: Imaging Protocol: Axial computed tomography images with coronal and sagittal reformatted images were created and reviewed. COMPARISON: CT CT ABDOMEN PELVIS W from 09/03/[address] CHEST PE CTA from 12/30/2019 FINDINGS: The examination is limited due to patient motion artifact. The patient received IV contrast earlier in the day for a PE protocol CT scan of the chest. ABDOMEN: Lung Bases: Normal where visualized. Liver: Normal density. There is a stable cyst in the left lobe of the liver. Gallbladder and biliary tract: Cholelithiasis. No biliary ductal dilatation. Pancreas: Normal density, no abnormal calcifications or inflammatory process. There is increased atte nuation around the head of the pancreas. This may in part be due to patient motion. Please correlat e with patient's clinical history and laboratory values if there is concern for acute pancreatitis. No peripancreatic fluid collection is seen. Spleen: Normal. Kidneys: Normal size, contour and axis.No radiodense stones or obstructive uropathy. Bilateral parape lvic cysts. Adrenal glands: No mass is seen. Lymph nodes: Within normal limits. Abdominal Aorta: Abdominal portion non-dilated. Moderate atherosclerosis. PELVIS: Bladder:Symmetric distention, no gross wall thickening. Bowel: No obstruction or bowel wall thickening. Appendix is unremarkable. Peritoneal cavity: No ascites, collection or mesenteric inflammatory response Reproductive organs: Mildly enlarged prostate gland. Bones: Degenerative changes. Soft Tissues: Within normal limits. IMPRESSION: 1. No definite acute abdominal or pelvic process. 2. Patient motion artifact versus inflammation around the head of the pancreas. Please correlate cli nically to evaluate for possible acute pancreatitis. RADIATION DOSE DELIVERED: 1,457.64mGy.cm Total DLP DATA REPOSITORY: All CT scans at this facility are submitted to the National Radiology Data Registry (NRDR) Dose Index Registry (DIR) with the [employer] (ACR). RADIATION OPTIMIZATION: All CT scans at this facility use at least one of these dose optimization te chniques: automated exposure control; mA and/or kV adjustment per patient size (includes targeted exa ms where dose is matched to clinical indication); or iterative reconstruction.
[2019-12-30 17:48] LABS: Bilirubin Small (Negative); Blood Moderate (Negative); Clarity Clear (Clear); Glucose Negative (Negative); Ketones Trace mg/dL (Negative); Leukocyte Esterase Negative (Negative); Nitrite Negative (Negative); Specific Gravity 1.015 (1.005-1.025)
[2019-12-30 17:49] LABS: BE (Venous) 3 mmol/L (-2-3); HCO3 (Venous) 29 mmol/L (23-28); O2 Sat (Venous) 54 %; TCO2 (Venous) 26 mmol/L (24-29); pCO2 (Venous) 55 mmHg (41-51); pH (Venous) 7.33 (7.31-7.41); pO2 (Venous) 29 mmHg
[2019-12-30 17:58] LABS: Bacteria Negative HPF (Negative); C & S Indicated? No; Casts Negative LPF (Negative); Crystals Negative HPF (Negative); Epithelial Cells Few HPF (Negative); Mucus Negative (Negative); WBC 0-2 HPF (0-5)
[2019-12-30 17:59] LABS: Lipase > 15000 U/L (73-393)
[2019-12-30] MEDS: Normal Saline 500 ML 1000 ML IV (18:00)
[2019-12-30 18:11] LABS: Troponin I < 0.05 ng/mL (<0.06)
--- NOTE | 2019-12-30 18:53 | DI.VRAD_ITS ---
PROCEDURE INFORMATION: Exam: CT Abdomen And Pelvis Without Contrast Exam date and time: 12/30/2019 6:16 PM Age: 79 years old Clinical indication: Abdominal pain TECHNIQUE: Imaging protocol: Computed tomography of the abdomen and pelvis without contrast. COMPARISON: CT ABDOMEN PELVIS W 09/03/2019 10:33 AM FINDINGS: Liver: Hepatic hypodensities consistent with cysts. Gallbladder and bile ducts: Cholelithiasis. No biliary ductal dilatation. Pancreas: No acute findings. No ductal dilation. Spleen: No splenomegaly. Adrenal glands: No mass. Kidneys and ureters: No hydronephrosis. Stomach and bowel: No acute findings. No obstruction. No mucosal thickening. Appendix: No evidence of appendicitis. Intraperitoneal space: Unremarkable. No free air. No significant fluid collection. Vasculature: No abdominal aortic aneurysm. Lymph nodes: No significant adenopathy. Urinary bladder: Unremarkable as visualized. Reproductive: Unremarkable as visualized. Bones/joints: No acute findings. Soft tissues: Unremarkable. IMPRESSION: No acute findings. Dictated and Authenticated by: Norm Reynoso MD. Ordering:NADIRA Hernandez MD
[2019-12-30] MEDS: HYDROmorphone 2 MG/ML VIAL 1 MG IVP (19:22)
--- NOTE | 2019-12-30 19:41 | W.PM.HP.N ---
Date of service: 12/30/19 Time of Service: 19:41 Assessment and Plan Assessment and plan (1) Gallstone pancreatitis: Status: Acute Assessment and plan: hydration pain management pulm toilet no need for abx at this time d/w GI at [facility] [place]. They do not think ERCP is indicated at this time. conservative medical management (2) Gallbladder sludge: Status: Acute (3) Gallstones: Status: Acute (4) Memory disturbance: Status: Chronic (5) Hyperlipidemia: Status: Chronic (6) Benign hypertension: Status: Chronic (7) BPH w/o urinary obs/LUTS: Status: Chronic History of Present Illness Consults Consult date: 12/30/19 Requesting physician: David Pollard Narrative: Pt came to the ED tonight c/o chest pain and N/V. Pt was in the hospital this summer w/ a rather vague abdominal pain and nausea and elevated T Jarad. His s/s resolved after having a BM, he tolerated a regular diet adn wanted to go home. At that time I did not think his s/s were from his gallstones. Pt [resents to the ED tonight c/o chest pain/RUQ pain and n/v. Pt has some degree of dementia and is a very difficult historian. Most of the history is taken from Dr. Pollard and the pt . He had an US and CT in 08/29 which did show gallstones and sludge. He had an echo in 08/29 that was relatively nl for age. Admission Date: 09/01/19 : 1940 Age: 78 Conclusion Left Ventricle : The left ventricle is normal size. The left ventricular systolic function is normal. The left ventricular ejection fraction is within the normal range. There is normal left ventricular wall thickness. Regional wall motion is grossly normal. Visually LVEF appears to be 45-50%. Right Ventricle : The right ventricle is normal size. The right ventricular systolic function is normal. The RVSP is 20 mmHg. Atria : The left atrium size is normal. The right atrium size is normal. Valves: There are no hemodynamically significant valvular lesions. Great Vessels : The aortic root is normal in size. The ascending aorta is mildly dilated. IVC is normal in size and collapses >50% with inspiration. There is no prior study available for comparison Please see the rest of report for additional findings. COMPARISON: CT CT ABDOMEN PELVIS W from 09/01/2019 ABDOMEN: Lung Bases: Normal where visualized. Liver: Normal density. Stable hepatic cyst. Portal, Superior Mesenteric, and Splenic Veins: Unremarkable. Gallbladder and Biliary Tract: Cholelithiasis. No biliary ductal dilatation. Gallbladder is distended. There does appear to be layering debris within the gallbladder suspicious for sludge. Pancreas: Normal density, no abnormal calcifications or inflammatory process. Spleen: Normal. Adrenals: No masses seen. Kidneys: Normal size, contour and axis. No radiodense stones or obstructive uropathy. No masses seen. Abdominal Aorta: Abdominal portion non-dilated. Atherosclerosis. Bowel: No obstruction or bowel wall thickening. Appendix is unremarkable. Peritoneal Cavity: No ascites, collection or mesenteric inflammatory response. Lymph Nodes: Within normal limits. Bones: Degenerative changes. Soft Tissues: Unremarkable. PELVIS: Bladder: Symmetric distention, no gross wall thickening. Reproductive Organs: Unremarkable as visualized. Lymph Nodes: Within normal limits. Bones: Degenerative changes. IMPRESSION: Cholelithiasis with gallbladder sludge gallbladder distension. No biliary ductal dilatation Review of Systems All systems reviewed & are unremarkable except as noted in HPI and below PFSH Medical History Abdominal pain Benign hypertension (12/09/05) <140/85; BP was high at time of colonoscopy so Dr. Taylor started him on HCTZ 2005. High BP readings @ ophtho, urol . turns out to be 2' finesteride, Dr. Smallwood d/c'd .. will follow up in July 2018. 125/85 today, 06/2018, ik. 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 [employer] What type of physical activity do you participate in: none Working smoke detector in home: Yes Fire extinguisher in home: Yes Carbon monox detector in home: Yes Do you feel safe at home: Yes Do you feel safe in your relationship?: Yes Meds Home Medications and Allergies Home Medications Medication Instructions Recorded Confirmed Type acetaminophen [Acetaminophen Extra 1,000 mg PO PRN PRN 06/11/12 12/30/19 History Strength] aspirin [Aspirin Low Dose] 81 mg PO M-W-F tab-cap 06/11/12 12/30/19 History polyvinyl alcohol [Artificial 1 drp OPHTHALMIC PRN PRN 06/11/12 12/30/19 History Tears (polyvin alc)] furosemide 20 mg tablet 20 mg PO BID #60 tab 07/28/19 12/30/19 Rx lisinopril 40 mg tablet 40 mg PO DAILY #90 tab 07/28/19 12/30/19 Rx docusate sodium [Stool Softener] 100 mg PO BID #20 cap 09/03/19 12/30/19 Rx Allergies Allergy/AdvReac Type Severity Reaction Status Date / Time hydrochlorothiazide AdvReac Mild possible Verified 12/30/19 15:02 Erectile dysfunction Exam Const General: cooperative, healthy appearing, comfortable, no acute distress, well developed and well groomed Nutritional Appearance: average body habitus and well nourished Orientation: alert, awake and oriented x3 HENMT Head: normal to inspection, normocephalic and atraumatic Ears: hearing grossly normal bilaterally and external ears normal General nose exam: external nose normal Face and sinus: normal facial exam and sinuses nontender Mouth: oral mucosae normal, lip normal, tongue normal and moist mucous membranes Teeth and gingiva: dentition normal Eyes General: appearance normal, both eyes and all related structures Conjunctivae: conjunctivae normal Sclera: sclerae normal Pupils: PERRL Neck Neck: normal visual inspection and full ROM Chest Chest: normal inspection of the chest Resp Effort & Inspection: normal respiratory effort, able to speak in complete sentences, no cough, no nasal flaring, not tachypneic and no use of accessory muscles Auscultation: clear to auscultation bilaterally, no rales, no rhonchi and no wheezes Cardio Jugular venous pressure: no JVD Rate: regular rate Rhythm: regular rhythm GI Inspection: normal to inspection, no edema, distended and obesity Palpation: soft, no masses, tender (moderate ) in the RUQ and at McBurney's point and No ascites Auscultation: normal bowel sounds Skin General skin exam: no rashes or lesions noted Trauma: no lacerations or abrasions Neuro General: patient alert, patient oriented x3, oriented, gait normal, moves all extremities, no focal motor deficits and CN's II-XI intact bilaterally Cognition: normal cognition Speech: speech normal Gait: normal gait Motor: muscle tone normal throughout Extrem General: normal to inspection, full ROM and no clubbing, cyanosis or edema Psych Appearance: grossly normal and well kempt Mental Status: mental status grossly normal Speech and Movement: speech and movement normal Affect: normal affect Results Labs Result diagrams: 12/31/19 06:45 12/31/19 06:45 Labs: Laboratory Results - last 24 hr 12/30/19 12/30/19 12/30/19 14:52 14:52 14:52 WBC 10.20 RBC 5.39 Hgb 14.8 Hct 46.6 MCV 86.5 MCH 27.5 MCHC 31.8 L RDW 14.4 H Plt Count 178 MPV 9.7 Immature Gran % 0.6 Neutrophils % 80.4 Lymphocytes % 9.1 Monocytes % 9.4 Eosinophils % 0.2 Basophils % 0.3 Nucleated RBC % 0 Absolute Neutrophils 8.20 H Absolute Lymphocytes 0.93 L Absolute Monocytes 0.96 H Absolute Eosinophils 0.02 Absolute Basophils 0.03 D-Dimer 2372 H VBG pH VBG pCO2 VBG pO2 VBG HCO3 VBG Total CO2 VBG O2 Saturation VBG Base Excess VBG Lactate Sodium 137 Potassium 4.0 Chloride 103 Carbon Dioxide 27.9 Anion Gap 6.1 BUN 26 H Creatinine 1.23 Estimated GFR/1.73 m2 56.62 Glucose 160 H Calcium 10.2 H Ferritin > 2000 H Total Bilirubin 4.0 H AST 421 H ALT 654 H Alkaline Phosphatase 423 H Lactate Dehydrogenase 467 H Troponin I < 0.05 C-Reactive Protein 0.97 H NT-Pro-B Natriuret Pep Total Protein 7.9 Albumin 3.7 Lipase Urine Color Urine Clarity Urine pH Ur Specific [place] Urine Protein Urine Ketones Urine Blood Urine Nitrite Urine Bilirubin Urine Urobilinogen Ur Leukocyte Esterase Urine RBC Urine WBC Ur Epithelial Cells Urine Crystals Urine Bacteria Urine Casts Urine Mucus Ur Culture Indicated? Urine Glucose Acetaminophen 12/30/19 12/30/19 12/30/19 14:52 14:52 17:35 WBC RBC Hgb Hct MCV MCH MCHC RDW Plt Count MPV Immature Gran % Neutrophils % Lymphocytes % Monocytes % Eosinophils % Basophils % Nucleated RBC % Absolute Neutrophils Absolute Lymphocytes Absolute Monocytes Absolute Eosinophils Absolute Basophils D-Dimer VBG pH VBG pCO2 VBG pO2 VBG HCO3 VBG Total CO2 VBG O2 Saturation VBG Base Excess VBG Lactate Sodium Potassium Chloride Carbon Dioxide Anion Gap BUN Creatinine Estimated GFR/1.73 m2 Glucose Calcium Ferritin Total Bilirubin AST ALT Alkaline Phosphatase Lactate Dehydrogenase Troponin I C-Reactive Protein NT-Pro-B Natriuret Pep 803 H Total Protein Albumin Lipase > 51320 H Urine Color Yellow Urine Clarity Clear Urine pH 5.0 Ur Specific [place] 1.015 Urine Protein Trace H Urine Ketones Trace H Urine Blood Moderate H Urine Nitrite Negative Urine Bilirubin Small H Urine Urobilinogen 1.0 H Ur Leukocyte Esterase Negative Urine RBC 5-10 H Urine WBC 0-2 Ur Epithelial Cells Few Urine Crystals Negative Urine Bacteria Negative Urine Casts Negative Urine Mucus Negative Ur Culture Indicated? No Urine Glucose Negative Acetaminophen < 2 12/30/19 12/30/19 12/30/19 17:37 17:37 17:37 WBC RBC Hgb Hct MCV MCH MCHC RDW Plt Count MPV Immature Gran % Neutrophils % Lymphocytes % Monocytes % Eosinophils % Basophils % Nucleated RBC % Absolute Neutrophils Absolute Lymphocytes Absolute Monocytes Absolute Eosinophils Absolute Basophils D-Dimer VBG pH 7.33 VBG pCO2 55 H VBG pO2 29 VBG HCO3 29 H VBG Total CO2 26 VBG O2 Saturation 54 VBG Base Excess 3 VBG Lactate 1.0 Sodium Potassium Chloride Carbon Dioxide Anion Gap BUN Creatinine Estimated GFR/1.73 m2 Glucose Calcium Ferritin Total Bilirubin AST ALT Alkaline Phosphatase Lactate Dehydrogenase Troponin I < 0.05 C-Reactive Protein NT-Pro-B Natriuret Pep Total Protein Albumin Lipase Urine Color Urine Clarity Urine pH Ur Specific [place] Urine Protein Urine Ketones Urine Blood Urine Nitrite Urine Bilirubin Urine Urobilinogen Ur Leukocyte Esterase Urine RBC Urine WBC Ur Epithelial Cells Urine Crystals Urine Bacteria Urine Casts Urine Mucus Ur Culture Indicated? Urine Glucose Acetaminophen Last Vital Signs Temp 36.3 C L 12/30/19 14:52 Pulse 95 H 12/30/19 17:01 Resp 15 12/30/19 17:10 BP 188/96 H 12/30/19 17:01 Pulse Ox 94 12/30/19 17:10 COVID-19 Screening Have you, or household traveled for leisure in last 14 days?: No Had IN PERSON contact w/suspected or confirmed C-19 person: No
[2019-12-30] MEDS: Lactated Ringers 1,000 ML 125 ML IV (21:59)
[2019-12-30] MEDS: Pantoprazole 40 MG VIAL IVP (22:00)
[2019-12-30] MEDS: Docusate Sodium 100 MG CAP PO (22:01)
[2019-12-30] MEDS: Enoxaparin 40 MG/0.4 ML SYR SC (22:01)
[2019-12-30] MEDS: Acetaminophen 325 MG TAB 1000 MG PO (22:04)
[2019-12-31] VITALS (9 sets, daily range): BP systolic 157–200; BP diastolic 86–112; PULSE 78–89; RESP 17–18; TEMP 36.4–36.8; O2SAT 91–95
[2019-12-31] MEDS: Acetaminophen 500 MG TAB 1000 MG PO ×4 (04:18→22:34)
[2019-12-31] MEDS: Lactated Ringers 1,000 ML 125 ML IV ×2 (04:19→18:07)
[2019-12-31 07:27] LABS: Abs Immature Grans 0.04 10^3/uL (0.0-0.06); Absolute Basophil Count 0.01 10^3/uL (0.0-0.2); Absolute Eosinophil Count 0.02 10^3/uL (0.0-0.7); Absolute Neutrophil Count 5.12 10^3/uL (1.2-6.7); Basophils % 0.1; Eosinophils % 0.3; HCT 38.4 % (40.0-50.0); HGB 12.7 g/dL (13.5-17.5); Immature Grans % 0.6; Lymphocytes % 13.9; MCH 27.7 pg (27.0-33.0); MCHC 33.1 % (32.0-36.0); MCV 83.7 fL (80-95); Monocytes % 13.9; Neutrophils % 71.2; Nucleated RBC 0 %; Platelet Count 151 10^3/uL (130-400); RBC 4.59 10^6/uL (4.36-5.78); RDW 14.3 % (11.8-14.1); RDW-SD 43.6 fL; WBC 7.19 10^3/uL (4.4-10.8)
[2019-12-31 07:55] LABS: ALT 526 U/L (16-63); AST 262 U/L (15-37); Albumin 2.9 g/dL (3.4-5.0); Alkaline Phosphatase 355 U/L (46-116); Anion Gap 4.1 mmol/L (3-11); BUN 24 mg/dL (7-18); Bilirubin, Total 5.2 mg/dL (0.2-1.0); CO2 27.9 mmol/L (21.0-32.0); CREATININE 0.96 mg/dL (0.70-1.30); Calcium 9.7 mg/dL (8.5-10.1); Chloride 107 mmol/L (98-107); Glucose 95 mg/dL (74-106); Potassium 3.3 mmol/L (3.5-5.1); Sodium 139 mmol/L (136-145); Total Protein 6.2 g/dL (6.4-8.2)
[2019-12-31 08:10] LABS: Lipase 2725 U/L (73-393)
[2019-12-31] MEDS: Lisinopril 20 MG TAB 40 MG PO (08:16)
[2019-12-31] MEDS: Docusate Sodium 100 MG CAP PO ×2 (08:16→20:08)
[2019-12-31 08:17] LABS: COVID-19 RT-PCR UVMMC Result Negative (Negative)
--- NOTE | 2019-12-31 08:52 | PGE_ITS ---
Date of Service Date of service: 12/31/19 Time of Service: 08:52 Assessment and Plan Assessment and plan (1) Gallstone pancreatitis: Status: Acute Assessment and plan: Patient to go to [facility] today for ERCP. Arrangements have been made. I did discuss the procedure with the patient's . Continue supportive care more pancreatitis He did discuss with his . Thanks once the pancreatitis has resolved we should proceed with gallbladder surgery. I did review his echo and he does have a decent cardiac function. He has been having significant escalating problems with his gallstones and I think at this time he is going to require cholecystectomy. I did discuss doing a low-fat diet with his hence he returns home. No pork and low-fat dairy. His pancreatitis may have a resurgence after the ERCP. Anticipate discharge in 2 to 3 days. (2) Elevated bilirubin: Status: Acute (3) Gallbladder sludge: Status: Acute (4) Abdominal pain: Status: Acute (5) Gallstones: Status: Acute (6) Abdominal aortic aneurysm: Status: Acute (7) Pain in joint, other specified sites: Status: Chronic (8) Obesity, Class II, BMI 35-39.9, no comorbidity: Status: Chronic (9) Memory disturbance: Status: Chronic (10) Benign hypertension: Status: Chronic (11) Hyperlipidemia: Status: Chronic (12) BPH w/o urinary obs/LUTS: Status: Chronic Subjective Subjective Interval history since last seen: pt seen and examined. pt denies any pain or nausea today. no pain on palpations I did speek to the pt . She says his appetite has not been good lately. Yesterday he was having severe pain adn vomting all day. I did speak w/ GI regarding an ERCP. they agree he should have the procedure done. Arrangements are made for transfer to [facility] so he can undergo the procedure. He will return to the hospital later this evening. His was apprised of the plan. Exam Const General: cooperative, healthy appearing, comfortable, no acute distress, well developed and well groomed Nutritional Appearance: average body habitus and well nourished Orientation: alert, awake and oriented x3 HENMT Head: normal to inspection, normocephalic and atraumatic Ears: hearing grossly normal bilaterally and external ears normal General nose exam: external nose normal Face and sinus: normal facial exam and sinuses nontender Mouth: oral mucosae normal, lip normal, tongue normal and moist mucous membranes Teeth and gingiva: dentition normal Eyes General: appearance normal, both eyes and all related structures Conjunctivae: conjunctivae normal Sclera: sclerae normal Pupils: PERRL Other: Clinically patient does not appear jaundiced Neck Neck: normal visual inspection and full ROM Chest Chest: normal inspection of the chest Resp Effort & Inspection: normal respiratory effort, able to speak in complete sentences, no cough, no nasal flaring, not tachypneic and no use of accessory muscles Auscultation: clear to auscultation bilaterally, no rales, no rhonchi and no whe ezes Cardio Jugular venous pressure: no JVD Rate: regular rate Rhythm: regular rhythm GI Inspection: no edema, non-distended and obesity Palpation: soft, no masses, nontender and No ascites Auscultation: normal bowel sounds Other: no pain today Skin General skin exam: no rashes or lesions noted Trauma: no lacerations or abrasions Neuro General: patient oriented x3, oriented, moves all extremities, no focal motor deficits and CN's II-XI intact bilaterally Extrem General: normal to inspection, full ROM and no clubbing, cyanosis or edema Psych Appearance: grossly normal and well kempt Speech and Movement: speech and movement normal Objective Last Vital Signs Temp 36.4 C L 12/31/19 08:16 Pulse 78 12/31/19 08:16 Resp 17 12/31/19 08:16 BP 184/100 H 12/31/19 08:16 Pulse Ox 93 12/31/19 08:16 Laboratory Results - last 24 hr 12/30/19 12/30/19 12/30/19 14:52 14:52 14:52 WBC 10.20 RBC 5.39 Hgb 14.8 Hct 46.6 MCV 86.5 MCH 27.5 MCHC 31.8 L RDW 14.4 H Plt Count 178 MPV 9.7 Immature Gran % 0.6 Neutrophils % 80.4 Lymphocytes % 9.1 Monocytes % 9.4 Eosinophils % 0.2 Basophils % 0.3 Nucleated RBC % 0 Absolute Neutrophils 8.20 H Absolute Lymphocytes 0.93 L Absolute Monocytes 0.96 H Absolute Eosinophils 0.02 Absolute Basophils 0.03 D-Dimer 2372 H VBG pH VBG pCO2 VBG pO2 VBG HCO3 VBG Total CO2 VBG O2 Saturation VBG Base Excess VBG Lactate Sodium 137 Potassium 4.0 Chloride 103 Carbon Dioxide 27.9 Anion Gap 6.1 BUN 26 H Creatinine 1.23 Estimated GFR/1.73 m2 56.62 Glucose 160 H Calcium 10.2 H Ferritin > 2000 H Total Bilirubin 4.0 H AST 421 H ALT 654 H Alkaline Phosphatase 423 H Lactate Dehydrogenase 467 H Troponin I < 0.05 C-Reactive Protein 0.97 H NT-Pro-B Natriuret Pep Total Protein 7.9 Albumin 3.7 Lipase Urine Color Urine Clarity Urine pH Ur Specific [place] Urine Protein Urine Ketones Urine Blood Urine Nitrite Urine Bilirubin Urine Urobilinogen Ur Leukocyte Esterase Urine RBC Urine WBC Ur Epithelial Cells Urine Crystals Urine Bacteria Urine Casts Urine Mucus Ur Culture Indicated? Urine Glucose Acetaminophen COVID-19 PCR Nasopharyn COVID-19 PCR Ref Test Perform Site 12/30/19 12/30/19 12/30/19 14:52 14:52 16:30 WBC RBC Hgb Hct MCV MCH MCHC RDW Plt Count MPV Immature Gran % Neutrophils % Lymphocytes % Monocytes % Eosinophils % Basophils % Nucleated RBC % Absolute Neutrophils Absolute Lymphocytes Absolute Monocytes Absolute Eosinophils Absolute Basophils D-Dimer VBG pH VBG pCO2 VBG pO2 VBG HCO3 VBG Total CO2 VBG O2 Saturation VBG Base Excess VBG Lactate Sodium Potassium Chloride Carbon Dioxide Anion Gap BUN Creatinine Estimated GFR/1.73 m2 Glucose Calcium Ferritin Total Bilirubin AST ALT Alkaline Phosphatase Lactate Dehydrogenase Troponin I C-Reactive Protein NT-Pro-B Natriuret Pep 803 H Total Protein Albumin Lipase > 12871 H Urine Color Urine Clarity Urine pH Ur Specific [place] Urine Protein Urine Ketones Urine Blood Urine Nitrite Urine Bilirubin Urine Urobilinogen Ur Leukocyte Esterase Urine RBC Urine WBC Ur Epithelial Cells Urine Crystals Urine Bacteria Urine Casts Urine Mucus Ur Culture Indicated? Urine Glucose Acetaminophen < 2 COVID-19 PCR Negative Nasopharyn COVID-19 PCR Not Applicable Ref Test Perform Site [facility] 12/30/19 12/30/19 12/30/19 17:35 17:37 17:37 WBC RBC Hgb Hct MCV MCH MCHC RDW Plt Count MPV Immature Gran % Neutrophils % Lymphocytes % Monocytes % Eosinophils % Basophils % Nucleated RBC % Absolute Neutrophils Absolute Lymphocytes Absolute Monocytes Absolute Eosinophils Absolute Basophils D-Dimer VBG pH VBG pCO2 VBG pO2 VBG HCO3 VBG Total CO2 VBG O2 Saturation VBG Base Excess VBG Lactate 1.0 Sodium Potassium Chloride Carbon Dioxide Anion Gap BUN Creatinine Estimated GFR/1.73 m2 Glucose Calcium Ferritin Total Bilirubin AST ALT Alkaline Phosphatase Lactate Dehydrogenase Troponin I < 0.05 C-Reactive Protein NT-Pro-B Natriuret Pep Total Protein Albumin Lipase Urine Color Yellow Urine Clarity Clear Urine pH 5.0 Ur Specific [place] 1.015 Urine Protein Trace H Urine Ketones Trace H Urine Blood Moderate H Urine Nitrite Negative Urine Bilirubin Small H Urine Urobilinogen 1.0 H Ur Leukocyte Esterase Negative Urine RBC 5-10 H Urine WBC 0-2 Ur Epithelial Cells Few Urine Crystals Negative Urine Bacteria Negative Urine Casts Negative Urine Mucus Negative Ur Culture Indicated? No Urine Glucose Negative Acetaminophen COVID-19 PCR Nasopharyn COVID-19 PCR Ref Test Perform Site 12/30/19 12/31/19 12/31/19 17:37 06:45 06:45 WBC 7.19 RBC 4.59 Hgb 12.7 L D Hct 38.4 L MCV 83.7 MCH 27.7 MCHC 33.1 RDW 14.3 H Plt Count 151 MPV 10.0 Immature Gran % 0.6 Neutrophils % 71.2 Lymphocytes % 13.9 Monocytes % 13.9 Eosinophils % 0.3 Basophils % 0.1 Nucleated RBC % 0 Absolute Neutrophils 5.12 Absolute Lymphocytes 1.00 L Absolute Monocytes 1.00 H Absolute Eosinophils 0.02 Absolute Basophils 0.01 D-Dimer VBG pH 7.33 VBG pCO2 55 H VBG pO2 29 VBG HCO3 29 H VBG Total CO2 26 VBG O2 Saturation 54 VBG Base Excess 3 VBG Lactate Sodium 139 Potassium 3.3 L Chloride 107 Carbon Dioxide 27.9 Anion Gap 4.1 BUN 24 H Creatinine 0.96 Estimated GFR/1.73 m2 >= 60.00 Glucose 95 D Calcium 9.7 Ferritin Total Bilirubin 5.2 H AST 262 H ALT 526 H Alkaline Phosphatase 355 H Lactate Dehydrogenase Troponin I C-Reactive Protein NT-Pro-B Natriuret Pep Total Protein 6.2 L Albumin 2.9 L Lipase 2725 H Urine Color Urine Clarity Urine pH Ur Specific [place] Urine Protein Urine Ketones Urine Blood Urine Nitrite Urine Bilirubin Urine Urobilinogen Ur Leukocyte Esterase Urine RBC Urine WBC Ur Epithelial Cells Urine Crystals Urine Bacteria Urine Casts Urine Mucus Ur Culture Indicated? Urine Glucose Acetaminophen COVID-19 PCR Nasopharyn COVID-19 PCR Ref Test Perform Site
--- NOTE | 2019-12-31 09:03 | NUR.NOTE ---
Nursing Note: RN to RN report given to Nidia @ [facility] for the ERCP. Nidia RN reported no further questions.
--- NOTE | 2019-12-31 09:22 | PDOC.CMIN ---
- If Service Date Differs Date of service: 12/31/19 Time of Service: 09:22 Care Management Initial Assess PAST MEDICAL HISTORY/PAST SURGICAL HISTORY:: Gallstone pancreatitis PREVIOUS FUNCTIONAL STATUS/SOCIAL/FAMILY SUPPORTS:: Raffy lives with his Oksana in a single family home in [place], [place]. They have no children. 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 He is independent in the communityy and with his ADLs and receives no community services. CURRENT FUNCTIONAL STATUS:: Raffy was transferred to [facility] for an ERCP this morning and has not returned so CM unable to meet with him. ADVANCE DIRECTIVES:: On file Reny AYALA Has patient been provided with info about the portal/API?: Yes Did the patient sign up for the portal?: No CODE STATUS:: Full Code INSURANCE COVERAGE / FINANCIAL ISSUES:: Medicare. AARP PRIMARY CARE PHYSICIAN:: Elana Green POTENTIAL DISCHARGE NEEDS:: Follow up with community providers and discharge plan PATIENT/FAMILY EDUCATION NEEDS:: Discharge plan, limitations, follow up plan, Ask Me Three TRANSPORTATION:: via private vehicle with family PLAN:: Raffy will likely be discharged home with no new services. He will follow up with GI, his PCP and discharge plan of care. Raffy will transport via private vehicle with family. CM will continue to support patient, family and discharge planning needs.
--- NOTE | 2019-12-31 10:48 | NUR.NOTE ---
Nursing Note: Pt left with ambulance to [facility] for planned ERCP.
[2019-12-31] MEDS: nitroGLYcerin 0.4 MG TAB SL (18:01)
--- NOTE | 2019-12-31 18:58 | W.PM.PROGNOT ---
Date of Service Date of service: 12/31/19 Time of Service: 18:58 Assessment and Plan Assessment and plan (1) Benign hypertension: Status: Chronic Assessment and plan: Patient came back from his ERCP with elevated blood pressure. Patient did receive his lisinopril this a.m. Sometimes is difficult to tell if he is having pain. So he was medicated with some morphine. We will put him on telemetry and start IV beta-blockers. He did have multiple stones in his duct these were cleaned out and a stent was placed. They did recommend keeping him on broad-spectrum antibiotics for 7 days. Zosyn was started. He should go home on Augmentin for total of 7 days of treatment Monitor for resurgence of his pancreatitis following ERCP and stent placement. This is highly likely Objective Last Vital Signs Temp 36.5 C 12/31/19 17:51 Pulse 89 12/31/19 18:08 Resp 18 12/31/19 17:51 BP 157/101 H 12/31/19 18:08 Pulse Ox 91 L 12/31/19 17:51 Laboratory Results - last 24 hr 12/30/19 12/30/19 12/31/19 14:52 16:30 06:45 WBC RBC Hgb Hct MCV MCH MCHC RDW Plt Count MPV Immature Gran % Neutrophils % Lymphocytes % Monocytes % Eosinophils % Basophils % Nucleated RBC % Absolute Neutrophils Absolute Lymphocytes Absolute Monocytes Absolute Eosinophils Absolute Basophils Sodium 139 Potassium 3.3 L Chloride 107 Carbon Dioxide 27.9 Anion Gap 4.1 BUN 24 H Creatinine 0.96 Estimated GFR/1.73 m2 >= 60.00 Glucose 95 D Calcium 9.7 Total Bilirubin 5.2 H AST 262 H ALT 526 H Alkaline Phosphatase 355 H Total Protein 6.2 L Albumin 2.9 L Lipase 2725 H COVID-19 PCR Negative Nasopharyn COVID-19 PCR Not Applicable Hepatitis A IgM Ab Cancelled Hep Bs Antigen Cancelled Hep B Core Total Ab Cancelled Hepatitis C Antibody Cancelled Ref Test Perform Site [facility] 12/31/19 06:45 WBC 7.19 RBC 4.59 Hgb 12.7 L D Hct 38.4 L MCV 83.7 MCH 27.7 MCHC 33.1 RDW 14.3 H Plt Count 151 MPV 10.0 Immature Gran % 0.6 Neutrophils % 71.2 Lymphocytes % 13.9 Monocytes % 13.9 Eosinophils % 0.3 Basophils % 0.1 Nucleated RBC % 0 Absolute Neutrophils 5.12 Absolute Lymphocytes 1.00 L Absolute Monocytes 1.00 H Absolute Eosinophils 0.02 Absolute Basophils 0.01 Sodium Potassium Chloride Carbon Dioxide Anion Gap BUN Creatinine Estimated GFR/1.73 m2 Glucose Calcium Total Bilirubin AST ALT Alkaline Phosphatase Total Protein Albumin Lipase COVID-19 PCR Nasopharyn COVID-19 PCR Hepatitis A IgM Ab Hep Bs Antigen Hep B Core Total Ab Hepatitis C Antibody Ref Test Perform Site
[2019-12-31] MEDS: Metoprolol 5 MG/5 ML VIAL IVP (20:01)
[2019-12-31] MEDS: Sennosides/Docusate Sodium TAB 1 TAB PO (20:08)
[2019-12-31] MEDS: Pantoprazole 40 MG VIAL IVP (20:08)
[2019-12-31] MEDS: FAMOTIDINE 20 MG/50 ML BAG 200 MG IVPB (20:09)
[2019-12-31] MEDS: Enoxaparin 40 MG/0.4 ML SYR SC (20:10)
[2019-12-31] MEDS: POTASSIUM CHLORIDE/D5-0.9%NACL 1,000 ML 125 MEQ IV (20:21)
[2019-12-31] MEDS: PIPERACILLIN/TAZO 3.375 GM in Normal Saline 50 ML IVPB (20:47)
[2019-12-31] MEDS: Normal Saline 50 ML 12.5 ML (20:55)
[2020-01-01] VITALS (27 sets, daily range): BP systolic 160–220; BP diastolic 73–120; PULSE 65–90; RESP 14–19; TEMP 36.5–36.8; O2SAT 93–97
[2020-01-01] MEDS: Metoprolol 5 MG/5 ML VIAL IVP ×6 (02:22→22:50)
[2020-01-01] MEDS: POTASSIUM CHLORIDE/D5-0.9%NACL 1,000 ML 125 MEQ IV (03:35)
[2020-01-01] MEDS: Lisinopril 20 MG TAB 40 MG PO (04:09)
[2020-01-01] MEDS: Acetaminophen 500 MG TAB 1000 MG PO ×3 (04:10→21:50)
[2020-01-01] MEDS: PIPERACILLIN/TAZO 3.375 GM in Normal Saline 50 ML IVPB ×3 (06:01→21:50)
[2020-01-01 07:14] LABS: HCT 40.3 % (40.0-50.0); HGB 12.9 g/dL (13.5-17.5); MCH 27.6 pg (27.0-33.0); MCV 86.3 fL (80-95); MPV 10.1 fL (8.0-11.0); Platelet Count 151 10^3/uL (130-400); RBC 4.67 10^6/uL (4.36-5.78); RDW 14.6 % (11.8-14.1); WBC 8.81 10^3/uL (4.4-10.8)
[2020-01-01 07:28] LABS: ALT 348 U/L (16-63); AST 121 U/L (15-37); Albumin 2.8 g/dL (3.4-5.0); Alkaline Phosphatase 356 U/L (46-116); Anion Gap 6.5 mmol/L (3-11); BUN 20 mg/dL (7-18); Bilirubin, Total 2.8 mg/dL (0.2-1.0); CO2 26.5 mmol/L (21.0-32.0); CREATININE 1.03 mg/dL (0.70-1.30); Calcium 9.2 mg/dL (8.5-10.1); Chloride 108 mmol/L (98-107); Glucose 111 mg/dL (74-106); Lipase 707 U/L (73-393); Potassium 3.5 mmol/L (3.5-5.1); Sodium 141 mmol/L (136-145); Total Protein 6.4 g/dL (6.4-8.2)
[2020-01-01] MEDS: Docusate Sodium 100 MG CAP PO ×3 (08:19→19:56)
[2020-01-01] MEDS: Tamsulosin 0.4 MG CAPCR PO (08:19)
[2020-01-01] MEDS: Furosemide 20 MG TAB PO ×2 (08:19→16:21)
[2020-01-01] MEDS: Sennosides/Docusate Sodium TAB 1 TAB PO ×2 (08:19→19:56)
--- NOTE | 2020-01-01 09:45 | CMPROGNOTE_ITS ---
- If Service Date Differs Date of service: 01/01/20 Time of Service: 09:45 Care Management Progress Note S/O: Raffy was sitting up in a chair when CM met with him. He was vague in most of his responses and appeared somewhat confused. He was pleasant and shared that he is not clear about his plan of care. Dr. Acosta told him he needs to have his gallbladder removed but does not know when (likely in a couple of weeks) or where it will happen ([facility]). A: Raffy is an 79 year old gentleman admitted on 12/30/19 with gallstone pancreatitis P:Raffy will likely be discharged home with no new services. He will follow up with GI, his PCP and discharge plan of care. Raffy will transport via private vehicle with family. CM will continue to support patient, family and discharge planning needs.
[2020-01-01] MEDS: POTASSIUM CHLORIDE/D5-0.9%NACL 1,000 ML 50 MEQ IV (13:14)
--- NOTE | 2020-01-01 13:17 | PHA.REVIEW ---
Pharmacy Admission Review - Admission Clinical Review (Last Reviewed 12/31/19 @ 08:44 by Jennifer Rodriguez DO) Gallstone pancreatitis (Acute) Elevated bilirubin (Acute) Abdominal pain (Acute) Gallbladder sludge (Acute) Gallstones (Acute) Abdominal aortic aneurysm (Acute 09/10/10) hydrochlorothiazide Adverse Reaction (Mild, Verified 12/30/19 15:02) possible Erectile dysfunction Height 5 ft 7 in Weight 112.6 kg - Renal Dosing Renal Dosing: BUN 20 mg/dL (7-18) H 01/01/20 06:46 Creatinine 1.03 mg/dL (0.70-1.30) 01/01/20 06:46 Medications needing adjustments: Reviewed (CRCL ~53ML/MIN) - Anticoagulation Anticoagulation: Hgb 12.9 g/dL (13.5-17.5) L 01/01/20 06:49 Hct 40.3 % (40.0-50.0) 01/01/20 06:49 Plt Count 151 10^3/uL (130-400) 01/01/20 06:49 Creatinine 1.03 mg/dL (0.70-1.30) 01/01/20 06:46 DVT Prohphylaxis: Reviewed Medications: Enoxaparin Therapeutic Anticoagulation: N/A - Opiate Usage Evaluate Pain Scale/Pains Meds: Reviewed Scheduled Bowel Reg ordered if on Opiates?: Yes - Relevant Labs Sodium 141 mmol/L (136-145) 01/01/20 06:46 Potassium 3.5 mmol/L (3.5-5.1) 01/01/20 06:46 Chloride 108 mmol/L (98-107) H 01/01/20 06:46 C-Reactive Protein 0.97 mg/dL (0.0-0.3) H 12/30/19 14:52 Electrolytes, C-Reactive P, ESR: Reviewed - DM Control DM Control: Glucose 111 mg/dL (74-106) H 01/01/20 06:46 - Heart Failure/ID Heart Failure/ID: Troponin I < 0.05 ng/mL (<0.06) 12/30/19 17:37 NT-Pro-B Natriuret Pep 803 pg/mL (<300) H 12/30/19 14:52 - BP Control BP Control: Blood Pressure 192/98 Blood Pressure 192/90 Blood Pressure 210/110 Blood Pressure 210/110 Blood Pressure 198/102 Blood Pressure 206/103 Blood Pressure 220/120 Blood Pressure 207/112 Blood Pressure 205/105 Blood Pressure 210/107 Blood Pressure 210/115 If elevated: Reviewed (IV metoprolol and po lisinopril) - Qtc Review If Elevated: Reviewed (452) - Home Meds Home Med List reviewed: Reviewed - Current meds Current Medication Order Review: Reviewed - Comments Comments/Follow Ups: Pantoprazole infusion, pip/tazo IV
--- NOTE | 2020-01-01 13:26 | W.PM.PROGNOT ---
Date of Service Date of service: 01/01/20 Time of Service: 13:27 Assessment and Plan Assessment and plan (1) Gallstone pancreatitis: Status: Acute Assessment and plan: Labs continue to improve after ERCP Tolerating clears Will re-check labs in am and advance diet/possibly DC if improved Resume Lasix for HTN Continue IV antibiotics today Subjective Subjective Interval history since last seen: Denies abdominal or chest pain Tolerating clears Concerned about having a BM Exam Narrative Exam Narrative: No distress Lungs CTA Heart RRR Abdomen soft, nontender Objective Last Vital Signs Temp 97.7 F 01/01/20 07:50 Pulse 67 01/01/20 10:30 Resp 14 01/01/20 07:50 BP 192/98 H 01/01/20 10:30 Pulse Ox 95 01/01/20 07:50 Laboratory Results - last 24 hr 01/01/20 01/01/20 06:46 06:49 WBC 8.81 RBC 4.67 Hgb 12.9 L Hct 40.3 MCV 86.3 MCH 27.6 MCHC 32.0 RDW 14.6 H Plt Count 151 MPV 10.1 Sodium 141 Potassium 3.5 Chloride 108 H Carbon Dioxide 26.5 Anion Gap 6.5 BUN 20 H Creatinine 1.03 Estimated GFR/1.73 m2 >= 60.00 Glucose 111 H Calcium 9.2 Total Bilirubin 2.8 H AST 121 H ALT 348 H Alkaline Phosphatase 356 H Total Protein 6.4 Albumin 2.8 L Lipase 707 H
--- NOTE | 2020-01-01 13:43 | NUR.NOTE ---
Addendum entered and electronically signed by Dodie Velazco 01/01/20 14:07: Pt specifically asked me not to call his about missing money, doesn't want her knowing. Original Note: Nursing Note: Pt came out to his doorway and pointed at Amita the bowling ball marker and stated she took my roll of hundred dollar bills off of the window sill. She took my money. Amita was never in the patients room up to him making that statement. Visual Merchandising Director Jessica was in room to clean incontinent urine off of the floor 5 minuets prior. Nursing was in the room when clean up was happening. Jessica informed of pt's accusations, she stated all she did was take his trash out and clean the floor. This scribe was in room several times throughout the morning, used window sill to organize morning meds pass, and never saw any hundred dollar bills on sill. HIRAM Workman notified of situation, nursing pattern chain maker supervisor and , notified. All of Pt's belongings inspected with patient/in front of patient to help clear up money issue. Gaitan found in both of pants pockets, counted with patient and placed in a belongings envelope and placed in safe along with 3 white envelopes with gaitan in them for powerball Pt asked me not to open white envelopes and didn't want that gaitan counted. Entire room searched top to bottom for about a thousand dollars in hundreds that patient is convinced was taken by house keeper. No gaitan found. Pt assured by nursing pattern chain maker supervisor and that they would look further into the matter.
[2020-01-01] MEDS: Normal Saline Flush 10 ML SYR IVP ×2 (14:20→19:57)
[2020-01-01] MEDS: Pantoprazole 40 MG VIAL IVP (19:55)
[2020-01-01] MEDS: Enoxaparin 40 MG/0.4 ML SYR SC (19:56)
[2020-01-01] MEDS: FAMOTIDINE 20 MG/50 ML BAG 200 MG IVPB (19:56)
[2020-01-02] VITALS (8 sets, daily range): BP systolic 158–187; BP diastolic 86–99; PULSE 62–85; RESP 17–18; TEMP 36.4–36.7; O2SAT 94–95
[2020-01-02] MEDS: Metoprolol 5 MG/5 ML VIAL IVP (02:45)
[2020-01-02] MEDS: PIPERACILLIN/TAZO 3.375 GM in Normal Saline 50 ML IVPB (05:54)
[2020-01-02] MEDS: Acetaminophen 500 MG TAB 1000 MG PO (05:55)
[2020-01-02 07:04] LABS: ALT 257 U/L (16-63); AST 59 U/L (15-37); Alkaline Phosphatase 332 U/L (46-116); Anion Gap 4.7 mmol/L (3-11); BUN 14 mg/dL (7-18); Bilirubin, Total 1.8 mg/dL (0.2-1.0); CO2 29.3 mmol/L (21.0-32.0); CREATININE 1.14 mg/dL (0.70-1.30); Chloride 104 mmol/L (98-107); Glucose 92 mg/dL (74-106); Lipase 330 U/L (73-393); Potassium 3.2 mmol/L (3.5-5.1); Sodium 138 mmol/L (136-145); Total Protein 6.9 g/dL (6.4-8.2)
--- NOTE | 2020-01-02 07:23 | DSE_ITS ---
DS: Diagnosis Discharge Diagnosis (1) Gallstone pancreatitis: Status: Acute (2) S/P ERCP: Status: Acute Discharge Plan Disposition Patient Disposition: HOME Condition: Improving Discharge Details Reason For Visit: GALLSTONE PANCREATITIS Admit Date/Time: 12/30/19 19:31 Admit Provider: Jennifer Rodriguez Attending Provider: Jennifer Rodriguez Primary Care Provider: Elana Green Hospital Course Hospital Course: This patient presented to the emergency department with right upper quadrant pain, nausea and vomiting. He was noted to have a lipase greater than 15,000 and a T bili of 4. He had a CT scan of the chest abdomen pelvis which was limited due to motion artifact but did show some possible inflammation of the pancreatic head. He had an ultrasound from earlier this year that showed gallstones. The patient was admitted and the following day due to an increase in the bilirubin to 5.2 was transferred to [facility] for an ERCP. The common duct was cleared of several stones. After his return he remained asymptomatic with no further abdominal pain. He was kept on IV Zosyn per the recommendation of GI and will be discharged home on Augmentin for total of 7 days of antibiotics. His total bilirubin improved after the ERCP as did his other LFTs. On the day of discharge his lipase was normal. He was tolerating a low- fat diet. He was therefore discharged home and will follow up in the surgery clinic to discuss cholecystectomy. Home Meds and New Rx's Prescriptions: New amoxicillin-pot clavulanate [Augmentin] 875-125 mg tablet 1 tab PO BID Qty: 10 RF: 0 Continued furosemide [Lasix] 20 mg tablet 20 mg PO BID Qty: 60 RF: 0 lisinopril 40 mg tablet 40 mg PO DAILY Qty: 90 RF: 3 polyvinyl alcohol [Artificial Tears (polyvin alc)] 15 ML drops 1 drp Ophthalmic PRN PRNRF: 0 aspirin [Aspirin Low Dose] 81 MG tablet,delayed release (DR/EC) 81 mg PO RF: 0 acetaminophen [Acetaminophen Extra Strength] 500 MG tablet 1,000 mg PO PRN PRNRF: 0 docusate sodium [Stool Softener] 100 mg capsule 100 mg PO BID Qty: 20 RF: 0 Discharge Instructions Additional Instructions: Your diet should be low fat until gallbladder surgery. Call for increased pain, fever, jaundice, vomiting. Referrals: Elana Green DO [Primary Care Provider] - ([facility]LLIE for evaluation of BP) Jennifer Rodriguez DO [OSTEOPATHIC DOCTOR] - (Return in 1-2 weeks) Activity:: Activity as Tolerated Equipment/Supplies:: No Equipment Needed Diet:: Low fat DS: Summary Status at Discharge Functional status at discharge: independent ambulation Overall status at discharge: patient is back to baseline Mental Status: mental status grossly normal Speech and Movement: speech and movement normal Mood: congruent mood Affect: normal affect Exam Psych Mental Status: mental status grossly normal Speech and Movement: speech and movement normal Mood: congruent mood Affect: normal affect DS: Data Vitals/I&O Vitals and I&O: Vital Signs Temperature 98.1 F 01/02/20 02:51 Temperature Source Tympanic 01/02/20 02:51 Pulse 70 01/02/20 03:55 Pulse Rhythm Regular 01/02/20 02:40 Pulse 91 H 12/30/19 21:06 Respiratory Rate 18 01/02/20 02:51 Respiratory Effort Non-Labored 01/02/20 02:40 Respiratory Depth Normal 01/02/20 02:40 Respiratory Pattern Normal 01/02/20 02:40 Blood Pressure 180/99 H 01/02/20 03:55 Blood Pressure Mean 109 12/30/19 21:06 Blood Pressure Position Supine 12/30/19 14:52 Pulse Oximetry 94 01/02/20 02:51 Oxygen Delivery Method Room Air 01/02/20 02:51 Oxygen Flow Rate 0 01/02/20 02:51 Pain Level 0 01/02/20 05:55 Comment 01/02/20 02:51 Intake & Output 01/01/20 01/01/20 01/02/20 11:59 23:59 11:59 Intake Total 2484.167 / 3854.167 1370 / 3854.167 50 / 50 Output Total 300 / 650 350 / 650 400 / 400 Balance 2184.167 / 3204.167 1020 / 3204.167 -350 / -350 Intake: IV 2003.2053.167 2053.167 50 / 50 Oral 480 / 1800 1320 / 1800 Output: Urine 300 / 650 350 / 650 400 / 400 Other: Urine Color Light Destiny Yellow Yellow Urine Appearance Clear Clear Clear Comment incontinent void on floor, large Multiple voids Multiple voids Voiding Methods Urinal Bedside Commode Bedside Commode Data Completed and Pending Labs on day of discharge: Labs from last 24 hours 01/02/20 01/01/20 06:30 06:46 Sodium Pending 141 Potassium Pending 3.5 Chloride Pending 108 H Carbon Dioxide Pending 26.5 Anion Gap Pending 6.5 BUN Pending 20 H Creatinine Pending 1.03 Estimated GFR/1.73 m2 Pending >= 60.00 Glucose Pending 111 H Calcium Pending 9.2 Total Bilirubin Pending 2.8 H AST Pending 121 H ALT Pending 348 H Alkaline Phosphatase Pending 356 H Total Protein Pending 6.4 Albumin Pending 2.8 L Lipase Pending 707 H PENDING SALE TO [facility] Medical History Abdominal pain Benign hypertension (12/09/05) <140/85; BP was high at time of colonoscopy so Dr. Taylor started him on HCTZ 2005. High BP readings @ ophtho, urol . turns out to be 2' finesteride, Dr. Smallwood d/c'd .. will follow up in July 2018. 125/85 today, 06/2018, ik. 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
[2020-01-02] MEDS: Lisinopril 20 MG TAB 40 MG PO (08:57)
[2020-01-02] MEDS: Potassium Chloride 20 MEQ TABCR PO (08:58)
[2020-01-02] MEDS: Sennosides/Docusate Sodium TAB 1 TAB PO (08:58)
[2020-01-02] MEDS: Furosemide 20 MG TAB PO (08:58)
--- NOTE | 2020-01-02 16:19 | PDOC.CMDIS ---
- If Service Date Differs Date of service: 01/02/20 Time of Service: 16:19 LACE Index Scoring Tool - Questions: Length of Stay (in days): 3 Acuity (Admit via E.D.?): Yes E.D. Visits: 2 - Answers: Total Score: 8 Risk of Readmission: Low Risk Care Management Discharge Reason for Hospitalization: Gallstone pancreatitis Discharge Plan: Raffy will be discharged home with no new services. He will follow up with GI, his PCP and discharge plan of care. Raffy will transport via private vehicle with family. Patient/Family Education Needs: Discharge plan, limitations, follow up plan, Ask Me Three
[2020-01-13 16:41] LABS: Hepatitis A Antibody IgM Negative (Negative); Hepatitis B Core Antibody Negative (Negative); Hepatitis B surface Ag Negative (Negative); Hepatitis C Ab w Rflx HCV PCR Negative (Negative)
== END 2020-01-02 10:55 | disposition home or self-care (01) | DRG 440 ==
LOC: ER 20:02 → MS 21:15
PROVIDERS: Registered Nurse Emergency; Surgery; Admitting Provider Surgery; Emergency Provider Student in an Organized Health Care Education/Training Program; PCP Student in an Organized Health Care Education/Training Program; Visit Provider Surgery
DX: K85.10 Biliary acute pancreatitis without necrosis or infection (principal); K80.20 Calculus of gallbladder without cholecystitis without obstruction; I10 Essential (primary) hypertension; N40.0 Benign prostatic hyperplasia without lower urinary tract symptoms; R41.3 Other amnesia; E78.5 Hyperlipidemia, unspecified; E66.9 Obesity, unspecified; K59.00 Constipation, unspecified; Z87.891 Personal history of nicotine dependence; I71.4 Abdominal aortic aneurysm, without rupture; Z68.38 Body mass index [BMI] 38.0-38.9, adult
CPT/HCPCS: 36415; 43262; 71275; 80053; 82805; 83690; 85027; 86704; 86709; 86803; 87340; 93005; 96361; 96374; 99222; 99231; 99232; 99233; 99238; 99285; J1650; U0003; 71045; 74176; 80329; 81003; 81015; 82728; 83605; 83615; 83880; 84484; 85025; 85379; 86140; 93010; A0425; A0426; A0429; J2543; J3490

== ENCOUNTER → 2020-01-12 11:21 | Outpatient (BNVA) | payer MEDICARE, SELFPAY | PROVIDERS: PCP Student in an Organized Health Care Education/Training Program; Referring Provider Student in an Organized Health Care Education/Training Program; Visit Provider Surgery | DX: K85.10 Biliary acute pancreatitis without necrosis or infection (principal); K80.44 Calculus of bile duct with chronic cholecystitis without obstruction; Z98.890 Other specified postprocedural states | CPT/HCPCS: 99213 ==

== ENCOUNTER 2020-01-12 12:55 | Outpatient (REF) | payer MEDICARE, SELFPAY ==
[2020-01-12 13:51] LABS: Abs Immature Grans 0.07 10^3/uL (0.0-0.06); Absolute Basophil Count 0.06 10^3/uL (0.0-0.2); Absolute Eosinophil Count 0.12 10^3/uL (0.0-0.7); Absolute Lymphocyte Count 1.56 10^3/uL (1.2-3.4); Absolute Neutrophil Count 6.03 10^3/uL (1.2-6.7); Basophils % 0.7; Eosinophils % 1.4; HGB 14.2 g/dL (13.5-17.5); Immature Grans % 0.8; Lymphocytes % 17.8; MCH 27.3 pg (27.0-33.0); MCHC 31.6 % (32.0-36.0); MCV 86.5 fL (80-95); MPV 10.7 fL (8.0-11.0); Monocytes % 10.3; Nucleated RBC 0 %; Platelet Count 229 10^3/uL (130-400); RDW 13.8 % (11.8-14.1); RDW-SD 43.9 fL; WBC 8.74 10^3/uL (4.4-10.8)
[2020-01-12 13:58] LABS: ALT 56 U/L (16-63); AST 21 U/L (15-37); Albumin 3.4 g/dL (3.4-5.0); Alkaline Phosphatase 143 U/L (46-116); Anion Gap 4.5 mmol/L (3-11); BUN 29 mg/dL (7-18); Bilirubin, Total 1.2 mg/dL (0.2-1.0); CO2 31.5 mmol/L (21.0-32.0); CREATININE 1.32 mg/dL (0.70-1.30); Calcium 9.7 mg/dL (8.5-10.1); Chloride 104 mmol/L (98-107); Estimated GFR 52.19 (mL/min/1.73m2); Glucose 99 mg/dL (74-106); Lipase 261 U/L (73-393); Potassium 3.7 mmol/L (3.5-5.1); Sodium 140 mmol/L (136-145); Total Protein 6.7 g/dL (6.4-8.2)
[2020-01-12 14:15] LABS: INR 1.1 (0.9-1.1); Prothrombin Time 10.9 sec (9.3-11.0)
== END 2020-01-12 13:15 ==
LOC: LBN 12:55
PROVIDERS: PCP Student in an Organized Health Care Education/Training Program; Visit Provider Surgery
DX: K85.10 Biliary acute pancreatitis without necrosis or infection (principal); E78.5 Hyperlipidemia, unspecified; I10 Essential (primary) hypertension; I71.4 Abdominal aortic aneurysm, without rupture; R10.9 Unspecified abdominal pain; K80.20 Calculus of gallbladder without cholecystitis without obstruction
CPT/HCPCS: 80053; 83690; 85025; 85610

== ENCOUNTER 2020-01-20 04:49 | Outpatient (CLI) | payer MEDICARE, SELFPAY ==
[2020-01-22 10:02] LABS: COVID-19 RT-PCR Result NEGATIVE (Negative)
== END 2020-01-20 05:09 ==
PROVIDERS: PCP Student in an Organized Health Care Education/Training Program; Visit Provider Surgery
DX: Z11.59 Encounter for screening for other viral diseases (principal); Z01.818 Encounter for other preprocedural examination
CPT/HCPCS: U0003

== ENCOUNTER 2020-01-24 17:16 | Inpatient (IN) | payer MEDICARE, SELFPAY ==
[2020-01-24] VITALS (69 sets, daily range): BP systolic 96–144; BP diastolic 57–98; PULSE 65–94; RESP 11–26; TEMP 35.3–36.8; O2SAT 93–100
[2020-01-24] MEDS: Lactated Ringers 1,000 ML 80 ML IV (08:49)
[2020-01-24] MEDS: Acetaminophen 500 MG TAB 1000 MG PO (09:48)
[2020-01-24] MEDS: Gabapentin 300 MG CAP PO (09:49)
[2020-01-24] MEDS: PIPERACILLIN/TAZO 4.5 GM in Normal Saline 100 ML IVPB ×4 (11:00→22:10)
[2020-01-24] MEDS: Bupivacaine 0.25% Pres-Free 30 ML VIAL (11:32)
[2020-01-24] MEDS: ELECTROLYTE-R SOLUTION 1,000 ML 30 ML IV (13:20)
--- NOTE | 2020-01-24 13:33 | GB_PTH ---
PATIENT: Raffy Mobley LOC: ICU U#:[id number] AGE/SX: 79/M ROOM: ICU.221 RE01/24/[address]: Jennifer Rodriguez : 1940 BED: A DIS: 02/01/2020 SPEC #: [id number] RECD: 01/24/20 17:37 STATUS: SOUKinza REQ #: [id number] CAROL: 01/24/20 13:[address]: Jennifer Rodriguez DEPT: Surgical Specimen RECD BY: Heidi Walters ENTERED: 01/24/20 17:38 SP TYPE: GB OTHR DR: Elana Green, DO [facility] Tissues: 1 - GALLBLADDER Procedures: GROSS AND MICRO LEVEL 3 Comments: [id number]
--- NOTE | 2020-01-24 13:45 | DI.RAD_ITS ---
EXAM: XR ABDOMEN FLAT PLATE CLINICAL HISTORY: no surgical count performed. TECHNIQUE: 2D digital imaging was performed. COMPARISON: CR XR ABDOMEN FLAT PLATE from 09/02/2019 FINDINGS: Single AP supine portable view of the abdomen reveals right upper quadrant skin clips. There are Lee ke drains noted. There is an NG tube which is coiled in the stomach. IMPRESSION: DATA REPOSITORY: RADIATION DOSE DELIVERED:
[2020-01-24] MEDS: Lidocaine 1% Multi-Dose 50 ML VIAL (13:53)
[2020-01-24] MEDS: Cellulose,Oxidized 4X8 1 PACKET MC (14:00)
--- NOTE | 2020-01-24 15:01 | ROE_ITS ---
Date of service: 01/24/20 Time of Service: 15:01 Operative Note Operative Note DATE OF PROCEDURE: 01/24/20 PRE-OP DIAGNOSIS: chornic izzy w/ stones POST-OP DIAGNOSIS: other (acute gangrenous izzy w/ stones ) PROCEDURE: open izzy SURGEON: Terrell Garcia ASSISTING SURGEON: Marzena Martin ANESTHESIA: GETA ESTIMATED BLOOD LOSS: 1,000 PATHOLOGY: other Patient was transported to: PACU Patient's condition: stable Procedure Description: The pt has chronic cholecystitis, cholelithiasis. He had gallstone pancreatitis and was in the hospital 12/28.he had an ERCP and sphi ncterotomy for duct clearance. the pt has here today for laparoscopic cholecystectomy. Informed consent was obtained, explaining risks and benefits of the procedure including but not limited to bleeding, infection, pneumonia, blood clots, possible damage to bowel, bladder, blood vessels, bile ducts, possible open procedure, complications of general anesthesia and other unforetold complications. PROCEDURE: The patient agrees and is brought to the operative room suite and placed in supine position. Anesthesia was administered per the Department of Anesthesia. The patient did receive IV antibiotics. NG tube and Ng catheter are placed. The patient was prepped and draped in the usual sterile fashion using DuraPrep scrub solution. Pause for the cause was done. 20 mL of 1% buffered lidocaine was used for local anesthetization. A stab incision was made in the superumbilical position (he does have a large umbilical hernia) umbilicus and the Verres inserted. Drop test was positive and insufflation was begun. When 15 mm of pressure was noted on the monitor, the Veress was removed and #5 port inserted. The camera was inserted through the port and shows no damage to underlying structures. A 10 mm port was then placed in the epigastric position under direct visualization following creation of local field blocks as well as two 5 mm ports in the right upper quadrant. There is omentum w/ in the umbilical hernia sac. This is taken down w/ blunt dissection. there are no other abdominal adhesions. The gallbladder is completely covered w/ the omentum. THis is taken down w/ a comibination of sharp dissection adn energy. Once this is accomplished, and the GB visulaized, there is a 1cm area on the superior portion of the gb, where the wall is black and nencrotic. The GB wall is thickened and edematous. We did attempt to decompress and aspirate the gallbladder. But the bile was too thick to be aspirated. The infundibulum was grasped and retracted laterally. The hepat-duodenal ligament is entered- it is thickend, woody. The cystic artery are dissected out. The most inferior portion of the gallbladder plate is removed from the liver and the critical view of safety was obtained after clearing away all fatty material. Endo Clips were placed across the artery and this structures is divided. The pt does have an extremely thickened and enlarged omentum. A fifth trocar is placed under visulization; a #10-12port. A fan retractor is placed for retraction . An hour is spent dissectig the duct out. The duct is quite enlarged adn woody. It is too large to hold for laparoscopic clips. In attempting to aid is identification of the duct, the remaining GB is taken down from the liver bed. The liver bed is extremely friable and bleeds quite redily. Patient is not on any blood thinners. There comes a point were we are having significant amount of bleeding from the liver bed. This is controlled w/ cautery and gel foam. Once we finally have the GB off the bed- there is a period that we develop arterial bleeding. I cannot tell if these is from the liver bed or from the omentum. We have approx 800cc of blood loss. I still cannot completely determine if we are on the cystic duct, or the bottom of the GB. Given the arterial bleeding that cannot be closed w/ gel foam or pressure- it was decided to open. we had been working on the gallbladder for 2 hours at this point. All laparoscopic ports are removed. Pneumoperitoneum is evacuated. 4 x 4 sponges are counted and placed off the field. The Laparoscopic equipment is passed off the field. A #10 blade is used to make a 6 inch standard Edson incision in the right upper quadrant-connecting the trocar sites. Electrocautery is used to provide hemostasis and dissect through the fascia and muscles. Finger was placed through the old port site and used to guide opening. The liver bed omentum was packed. The bleeding was controlled w/ pressure. once the bleeding is under control/ceased, the lap packs are removed. It does appear that the bleeding is coming from the omentum. Endoclips were used to control the bleeding. The omentum is dissected off the transverse colon and the colon is inspected to make sure that there is no injury. Liver bed is inspected. Electrocautery is used to control bleeding from the liver bed. the Remainder of the gallbladder was dissected off the liver bed. It does appear that we have identified the cystic duct. The cystic duct is quite enlarged and firm. There does not appear to be any stones in the duct however. He has had a previous ERCP and sphincterotomy and had a stent placed. The curved endo SHERMAN stapler is used to divide the cystic duct. There is no bleeding or bile leakage from the cystic duct. The gallbladder was passed off the field. There is no bleeding or bile leakage from the liver bed. The abdomen is irrigated with liter saline all saline is removed. FloSeal is placed in the liver bed. Sponge and needle counts are correct. Again the omentum is inspected and there is no bleeding. A #15 round drain is brought out through one of the 5 mm trocar sites and placed in the gallbladder fossa. 2 pieces of Interceed are placed under the incision. Peritoneum and posterior fascia are closed with 0 vicryl in a running fashion. Anterior fascia was closed with 0 PDS in a running fashion. The fat pad is irrigated. Skin is approximated with lurdes. The hernia is then repaired with 0 Vicryl. Skin skin is closed with lurdes. The drain is sewn in place with 2-0 nylon. pt tolerated the procedure well and transferred to PACU in stable condition. He will be admitted to ICU for monitering. He was appraised of findings. TERRELL GARCIA, DO
[2020-01-24] MEDS: Normal Saline 1,000 ML 120 ML IV (17:00)
--- NOTE | 2020-01-24 17:30 | W.PM.PROGNOT ---
Date of Service Date of service: 01/24/20 Time of Service: 17:30 Subjective Subjective Interval history since last seen: pt is sleeping. arouses to pain. Min from NGT. cl yellow urine ouptut. scant bleeding from dressing. 45cc sang fluid/no bile, from ELFEGO labs adn vitals reviewed. d/w nursing and concerns addressed. MAR reviewed. L: CTA b/l Abdom. dressing c/d/i. LE/buttocks. no edema/no breakdown d/w pt . pt has a stent in the bile duct. cystic duct is stapled- anticipate bile leak. cont abx- zosyn will start lovenox in am routine postOp care Objective Last Vital Signs Temp 36 C L 01/24/20 15:37 Pulse 78 01/24/20 15:42 Resp 22 01/24/20 15:42 BP 114/98 H 01/24/20 15:42 Pulse Ox 99 01/24/20 15:42 Laboratory Results - last 24 hr 01/24/20 12:55 Patient ABO/Rh AB Positive Antibody Screen Negative Crossmatch See Detail
[2020-01-24 18:01] LABS: HCT 42.9 % (40.0-50.0); HGB 13.5 g/dL (13.5-17.5); MCH 27.7 pg (27.0-33.0); MCHC 31.5 % (32.0-36.0); MCV 87.9 fL (80-95); MPV 10.4 fL (8.0-11.0); Platelet Count 152 10^3/uL (130-400); RBC 4.88 10^6/uL (4.36-5.78); RDW 14.1 % (11.8-14.1); RDW-SD 45.2 fL
[2020-01-24] MEDS: ACETAMINOPHEN 1,000 MG/100 ML BTL 400 MG IVPB (18:14)
[2020-01-24] MEDS: FAMOTIDINE 20 MG/50 ML BAG 200 MG IVPB (18:21)
[2020-01-24] MEDS: Lactated Ringers 500 ML 250 ML IV (22:09)
[2020-01-25] VITALS (129 sets, daily range): BP systolic 79–141; BP diastolic 49–115; PULSE 74–156; RESP 9–25; TEMP 35.9–37.1; O2SAT 91–99
[2020-01-25] MEDS: ACETAMINOPHEN 1,000 MG/100 ML BTL 400 MG IVPB ×3 (03:13→19:03)
[2020-01-25] MEDS: Normal Saline 1,000 ML 120 ML IV ×2 (03:14→12:12)
[2020-01-25] MEDS: PIPERACILLIN/TAZO 4.5 GM in Normal Saline 100 ML IVPB (04:34)
[2020-01-25 07:03] LABS: Abs Immature Grans 0.07 10^3/uL (0.0-0.06); Absolute Basophil Count 0.03 10^3/uL (0.0-0.2); Basophils % 0.2; HCT 39.2 % (40.0-50.0); HGB 12.3 g/dL (13.5-17.5); Immature Grans % 0.5; Lymphocytes % 6.2; MCH 27.8 pg (27.0-33.0); MCHC 31.4 % (32.0-36.0); MCV 88.7 fL (80-95); MPV 10.7 fL (8.0-11.0); Monocytes % 11.1; Nucleated RBC 0 %; Platelet Count 128 10^3/uL (130-400); RBC 4.42 10^6/uL (4.36-5.78); RDW 14.2 % (11.8-14.1); RDW-SD 45.7 fL; WBC 13.46 10^3/uL (4.4-10.8)
[2020-01-25 07:09] LABS: Absolute Lymphocyte Count 0.83 10^3/uL (1.2-3.4); Absolute Monocyte Count 1.49 10^3/uL (0.1-0.8); Absolute Neutrophil Count 11.04 10^3/uL (1.2-6.7)
[2020-01-25 07:12] LABS: ALT 78 U/L (16-63); AST 50 U/L (15-37); Albumin 2.7 g/dL (3.4-5.0); Alkaline Phosphatase 63 U/L (46-116); Anion Gap 10.8 mmol/L (3-11); BUN 37 mg/dL (7-18); Bilirubin, Total 1.2 mg/dL (0.2-1.0); CO2 26.2 mmol/L (21.0-32.0); CREATININE 2.25 mg/dL (0.70-1.30); Chloride 106 mmol/L (98-107); Glucose 139 mg/dL (74-106); Potassium 4.5 mmol/L (3.5-5.1); Sodium 143 mmol/L (136-145); Total Protein 5.7 g/dL (6.4-8.2)
[2020-01-25] MEDS: Furosemide 20 MG/2 ML VIAL IVP (08:38)
[2020-01-25] MEDS: Normal Saline Flush 10 ML SYR IVP ×2 (08:40→08:42)
[2020-01-25] MEDS: PIPERACILLIN/TAZO 3.375 GM in Normal Saline 50 ML IVPB ×3 (10:36→22:22)
--- NOTE | 2020-01-25 11:48 | NUR.NOTE ---
Patient is getting some much needed sleep. Vital signs are stable.Nursing Note:
--- NOTE | 2020-01-25 12:42 | PGE_ITS ---
Date of Service Date of service: 01/25/20 Time of Service: 12:42 Assessment and Plan Assessment and plan (1) Choledocholithiasis with chronic cholecystitis: Status: Acute Assessment and plan: Mr. Mobley is postop day 1 1 status post open cholecystectomy due to a necrotic gallbladder. He is doing fairly well today. He does not complain of pain. He feels hungry and would like something to eat. NG tube output has been minimal. Patient has good bowel sounds. ELFEGO drainage is bilious. Patient already has a stent in place Plan: 1. Remove NG tube 2. Start ice chips and sips of clears 3. Monitor ELFEGO output (2) Memory disturbance: Status: Chronic (3) Benign hypertension: Status: Chronic Assessment and plan: Blood pressures a low normal. Will hold his lisinopril and furosemide for now (4) BPH w/o urinary obs/LUTS: Status: Chronic Assessment and plan: Continue flomax Leave urine catheter in place until his UOP is better (5) Leukocytosis: Status: Acute Assessment and plan: Continue antibiotics Qualifiers: Leukocytosis type: lymphocytosis Qualified Code(s): D72.820 - Lympho cytosis (symptomatic) (6) Low urine output: Status: Acute Assessment and plan: Will give 1L bolus of NS Continue to monitor with adamson (7) DVT prophylaxis: Status: Acute Assessment and plan: Start Lovenox 30 mg qHS tonight (8) Acute renal failure (ARF): Status: Acute Assessment and plan: gently hydrate and re-check BUN/Cr tomorrow Qualifiers: Acute renal failure type: unspecified Qualified Code(s): N17.9 - Acute kidney failure, unspecified Subjective Subjective Interval history since last seen: Mr. Mobley is a pleasant 79-year-old gentleman who underwent attempted laparoscopic cholecystectomy. Unfortunately his gallbladder was noted to be necrotic and the surgery got converted to open cholecystectomy. He was admitted to the intensive care unit for observation. He was quite confused last night and tried to pull on his NG tube, Adamson as well as his seven dressing. He did receive 500 cc bolus overnight due to her low urine output. He did for almost 1500 in and very little out. He is normally on furosemide twice a day so I did give him a little Lasix this morning but that did not have any effect. Per nursing staff he is less confused now than he was this morning. He is still in soft restraints because he keeps trying to pull his NG tube out. He has only had about 100 cc out from his NG tube from 7:32 to 12:30. His ELFEGO drain has put out about 250 cc today. Per nursing staff it looks dark. The patient himself has no complaints of pain. He does tell me that he is hungry and wants to eat. He does state that he has passed some gas. He has not had any bowel movements. Per nursing staff he has good bowel sounds. Exam Const General: comfortable and no acute distress Orientation: alert [facility] Head: normocephalic and atraumatic Resp Effort & Inspection: normal respiratory effort Auscultation: clear to auscultation bilaterally Cardio Rate: regular rate Rhythm: regular rhythm GI Inspection: incision (dressing with small amount of bloody discharge) Palpation: soft and tender (appropriatly tender around his right subcostal incision. ) Abdomen image: 1. subcostal incision with SEVEN dressing 2. Port site incision 3. ELFEGO drain Objective Last Vital Signs Temp 96.6 F L 01/25/20 11:51 Pulse 81 01/25/20 11:51 Resp 10 L 01/25/20 11:51 BP 103/60 01/25/20 11:51 Pulse Ox 98 01/25/20 11:51 Laboratory Results - last 24 hr 01/24/20 01/24/20 01/24/20 12:55 17:00 17:50 WBC Cancelled 18.10 H RBC Cancelled 4.88 Hgb Cancelled 13.5 Hct Cancelled 42.9 MCV Cancelled 87.9 MCH Cancelled 27.7 MCHC Cancelled 31.5 L RDW Cancelled 14.1 Plt Count Cancelled 152 MPV Cancelled 10.4 Immature Gran % Neutrophils % Lymphocytes % Monocytes % Eosinophils % Basophils % Nucleated RBC % Absolute Neutrophils Absolute Lymphocytes Absolute Monocytes Absolute Eosinophils Absolute Basophils Sodium Potassium Chloride Carbon Dioxide Anion Gap BUN Creatinine Estimated GFR/1.73 m2 Glucose Calcium Total Bilirubin AST ALT Alkaline Phosphatase Total Protein Albumin Patient ABO/Rh AB Positive Antibody Screen Negative Crossmatch See Detail 01/25/20 01/25/20 06:35 06:35 WBC 13.46 H RBC 4.42 Hgb 12.3 L Hct 39.2 L MCV 88.7 MCH 27.8 MCHC 31.4 L RDW 14.2 H Plt Count 128 L MPV 10.7 Immature Gran % 0.5 Neutrophils % 82.0 Lymphocytes % 6.2 Monocytes % 11.1 Eosinophils % 0.0 Basophils % 0.2 Nucleated RBC % 0 Absolute Neutrophils 11.04 H Absolute Lymphocytes 0.83 L Absolute Monocytes 1.49 H Absolute Eosinophils 0.00 Absolute Basophils 0.03 Sodium 143 Potassium 4.5 Chloride 106 Carbon Dioxide 26.2 Anion Gap 10.8 BUN 37 H Creatinine 2.25 H Estimated GFR/1.73 m2 28.20 Glucose 139 H Calcium 9.0 Total Bilirubin 1.2 H AST 50 H ALT 78 H Alkaline Phosphatase 63 Total Protein 5.7 L Albumin 2.7 L Patient ABO/Rh Antibody Screen Crossmatch
[2020-01-25] MEDS: Normal Saline 1,000 ML 250 ML IV (13:18)
--- NOTE | 2020-01-25 14:03 | PHA.REVIEW ---
Pharmacy Admission Review - Admission Clinical Review hydrochlorothiazide Adverse Reaction (Mild, Verified 01/24/20 08:16) possible Erectile dysfunction Height 5 ft 4 in Weight 107.7 kg - Renal Dosing Renal Dosing: BUN 37 mg/dL (7-18) H 01/25/20 06:35 Creatinine 2.25 mg/dL (0.70-1.30) H 01/25/20 06:35 Medications needing adjustments: Intervened (Crcl ~29.1 mL/min using adjusted body weight. Talked to provider about famotidine and zosyn, both doses renally adjusted. Lisinopril put on hold.) - Anticoagulation Anticoagulation: Hgb 12.3 g/dL (13.5-17.5) L 01/25/20 06:35 Hct 39.2 % (40.0-50.0) L 01/25/20 06:35 Plt Count 128 10^3/uL (130-400) L 01/25/20 06:35 Creatinine 2.25 mg/dL (0.70-1.30) H 01/25/20 06:35 DVT Prohphylaxis: Intervened (Providers note from yesterday mentioned starting this morning, currently no order so will check in with provider.) Therapeutic Anticoagulation: N/A - Opiate Usage Evaluate Pain Scale/Pains Meds: Reviewed Scheduled Bowel Reg ordered if on Opiates?: No (will mention to provider) - Relevant Labs Sodium 143 mmol/L (136-145) 01/25/20 06:35 Potassium 4.5 mmol/L (3.5-5.1) 01/25/20 06:35 Chloride 106 mmol/L (98-107) 01/25/20 06:35 Electrolytes, C-Reactive P, ESR: Reviewed - DM Control DM Control: Glucose 139 mg/dL (74-106) H 01/25/20 06:35 Insulin Dosing: N/A (BG elevated this morning, no A1c on file) - Heart Failure/IN EF%, TYSON's, B-Blockers, Diuretics: N/A - BP Control BP Control: Blood Pressure [Left Arm] 92/55 Blood Pressure 103/60 Blood Pressure 110/63 Blood Pressure 98/62 Blood Pressure 92/55 Blood Pressure 92/55 Blood Pressure 79/49 Blood Pressure 84/52 Blood Pressure 106/56 Blood Pressure 106/56 If elevated: N/A (Pt's BP has been up and down some this admission) - Qtc Review If Elevated: N/A - IV to PO Switch IV Medications: Reviewed - Home Meds Home Med List reviewed: Reviewed (artificial tears, aspirin, docusate, furosemide(x1 dose IVP this morning)) - Current meds Current Medication Order Review: Reviewed - Comments Comments/Follow Ups: Watch BP, labs, SCr, and for med changes (renal dose adjustments, IV to PO, home meds, possible anticoagulation, need of BM meds) Antibiotic Activity - Pharmacy Antibiotic Review Pharmacy Antibiotic Activity: Renal function adjustment (zosyn dose decreased due to renal function (day 2 of zosyn))
[2020-01-25] MEDS: Enoxaparin 30 MG/0.3 ML SYR SC (17:31)
--- NOTE | 2020-01-25 18:04 | INITIAL_ITS ---
- If Service Date Differs Date of service: 01/25/20 Time of Service: 18:04 Care Management Initial Assess REASON FOR HOSPITALIZATION:: gangrenous gallbladder PAST MEDICAL HISTORY/PAST SURGICAL HISTORY:: Medical History . Abdominal pain. Benign hypertension (12/09/05). <140/85; BP was high at time of colonoscopy so Dr. Taylor started him on HCTZ 2005. High BP readings @ ophtho, urol . turns out to be 2' finesteride, Dr. Smallwood d/c'd .. will follow up in July 2018. 125/85 today, 06/2018, ik. BPH w/o urinary obs/LUTS (02/15/11). nocturiaX1-2; INCR 3X 09/2012. Elevated bilirubin. Gallbladder sludge. Gallstones. Hyperlipidemia (10/24/04). RISK 12% 11/2005; LDL goal 100 Need labs, [ ] fall 201807/01/18. 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 MOCA 22 (09/2013). Obesity, Class II, BMI 35-39.9, no comorbidity (02/15/11). His goal 220 (100kg); 191=87kg=BMI 30. Obstipation. Pain in joint, other specified sites (02/15/11) PREVIOUS FUNCTIONAL STATUS/SOCIAL/FAMILY SUPPORTS:: Raffy lives with his Oksana in a single family home in [place], [place]. They have no children. 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 He is independent in the community and with his ADLs and receives no community services. CURRENT FUNCTIONAL STATUS:: Raffy was sitting up in bed when CM met with him. He was sleepy and not very interactive with CM. He stated that he was feeling OK. Raffy did not have a clear recollection of the night as he had been very confused and combative. Raffy had surgery yesterday afternoon for removal of a gangenous gallbladder. He has been afebrile and after a period of hypotension this morning, his vital signs have been stable. ADVANCE DIRECTIVES:: On file. Reny [facility] Has patient been provided with info about the portal/API?: Yes Did the patient sign up for the portal?: No CODE STATUS:: Full Code INSURANCE COVERAGE / FINANCIAL ISSUES:: Medicare. AARP CURRENT HOME/COMMUNITY SERVICES/EQUIPMENT:: none currently PRIMARY CARE PHYSICIAN:: Elana Green POTENTIAL DISCHARGE NEEDS:: Follow up with surgeon, PCP and discharge plan of care. Raffy will likely need new HH services for drain management and PT PATIENT/FAMILY EDUCATION NEEDS:: Discharge plan, limitations, follow up plan, Ask Me Three TRANSPORTATION:: via private vehicle with PLAN:: Raffy will likely discharge home with new HH services for nursing and PT. He will follow up with his surgeon, PCP and plan of care. CM will continue to support Raffy and his family and assess for ongoing discharge concerns. Readmission - Within the Past 30 Days Yes or No: Y - Date of First Admission Date of 1st Admission: 12/30/19 - Date of this Admission Date of Admission: 01/25/20 This admission was: Direct Admit - Speicalist Appointments Have you seen any other specialist since your 1st Admission?: Yes Specialist Seen: 01/12/20 - Assessment for Readmission Summary of readmission circumstances, based upon interviews: Raffy was foun=d to have chelecystitis with stones last admission. He was readmitted for elective surgery this admission.
[2020-01-25] MEDS: Normal Saline 1,000 ML 150 ML IV (22:21)
[2020-01-25] MEDS: Tamsulosin 0.4 MG CAPCR PO (22:23)
[2020-01-25] MEDS: Gabapentin 100 MG CAP PO (22:23)
[2020-01-26] VITALS (38 sets, daily range): BP systolic 93–161; BP diastolic 54–106; PULSE 88–118; RESP 13–24; TEMP 36.3–36.8; O2SAT 92–95
[2020-01-26] MEDS: ACETAMINOPHEN 1,000 MG/100 ML BTL 400 MG IVPB ×3 (02:30→18:21)
[2020-01-26] MEDS: PIPERACILLIN/TAZO 3.375 GM in Normal Saline 50 ML IVPB ×4 (03:02→21:02)
[2020-01-26] MEDS: Normal Saline 1,000 ML 150 ML IV ×2 (06:01→13:23)
[2020-01-26 07:03] LABS: Anion Gap 8.6 mmol/L (3-11); BUN 40 mg/dL (7-18); CO2 24.4 mmol/L (21.0-32.0); CREATININE 3.23 mg/dL (0.70-1.30); Calcium 8.8 mg/dL (8.5-10.1); Chloride 108 mmol/L (98-107); Estimated GFR 18.58 (mL/min/1.73m2); Glucose 132 mg/dL (74-106); Sodium 141 mmol/L (136-145)
--- NOTE | 2020-01-26 07:25 | W.PM.PROGNOT ---
Date of Service Date of service: 01/26/20 Time of Service: 07:25 Assessment and Plan Assessment and plan (1) Choledocholithiasis with chronic cholecystitis: Status: Acute Assessment and plan: Post-Op Day [address] Jennifer TELLES Drain- bilious and bloody drainage Ng- Yellow, urine SEVEN dressing in place. (+) BS Sp02 93% on RA Diet- Progressed to post-op diet. Spoke with nsg regarding getting OOB and into a chair this morning. Strongly encouraged deep breathing techniques and use of the incentive spirometer. Subjective Subjective Interval history since last seen: Raffy denies having any pain this morning. He expresses that he is hungry. Exam Const General: cooperative, healthy appearing and comfortable Orientation: alert and oriented x3 Resp Effort & Inspection: normal respiratory effort, no audible wheezes and no cough Objective Last Vital Signs Temp 36.5 C 01/26/20 03:17 Pulse 103 H 01/26/20 03:17 Resp 15 01/26/20 03:17 BP 161/82 H 01/26/20 03:17 Pulse Ox 93 01/26/20 04:47 Laboratory Results - last 24 hr 01/24/20 01/24/20 01/26/20 12:55 17:00 06:20 WBC Cancelled RBC Cancelled Hgb Cancelled Hct Cancelled MCV Cancelled MCH Cancelled MCHC Cancelled RDW Cancelled Plt Count Cancelled MPV Cancelled Sodium 141 Potassium 4.0 Chloride 108 H Carbon Dioxide 24.4 Anion Gap 8.6 BUN 40 H Creatinine 3.23 H D Estimated GFR/1.73 m2 18.58 Glucose 132 H Calcium 8.8 Magnesium 2.0 Crossmatch See Detail
[2020-01-26 07:30] LABS: Abs Immature Grans 0.03 10^3/uL (0.0-0.06); Absolute Basophil Count 0.04 10^3/uL (0.0-0.2); Absolute Eosinophil Count 0.09 10^3/uL (0.0-0.7); Absolute Lymphocyte Count 0.73 10^3/uL (1.2-3.4); Absolute Monocyte Count 0.94 10^3/uL (0.1-0.8); Absolute Neutrophil Count 7.63 10^3/uL (1.2-6.7); Basophils % 0.4; HCT 34.8 % (40.0-50.0); Immature Grans % 0.3; Lymphocytes % 7.7; MCH 28.1 pg (27.0-33.0); MCHC 31.6 % (32.0-36.0); MCV 88.8 fL (80-95); Monocytes % 9.9; Neutrophils % 80.7; Nucleated RBC 0 %; Platelet Count 105 10^3/uL (130-400); RBC 3.92 10^6/uL (4.36-5.78); RDW-SD 48.2 fL; WBC 9.46 10^3/uL (4.4-10.8)
--- NOTE | 2020-01-26 08:22 | CMPROGNOTE_ITS ---
- If Service Date Differs Date of service: 01/26/20 Time of Service: 08:22 Care Management Progress Note S/O: Raffy was sitting up in bed when CM met with him. He was very sleepy and had difficulty keeping his eyes open and conversing. CM spoke with his Reny this morning and talked about the difficulty staff is having getting him out of bed and transferring to and from the commode. Dr. Rodriguez suggested that he may benefit from rehab and CM introduced the subject to his . She agreed that if he needed that much help (max assist of 2-3)) that she would not be able to care for him alone at home and that rehab seemed a good option. CM also explored the subject of Raffy's mental status and asked about memory issues. 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 She has not noted any appreciable loss of memory or functioning. She stated that she felt he may be reacting to the anesthesia. CM asked Raffy if he remembered that he had surgery and he answered yes. When asked where he had surgery, which part of his body, he answered gallbladder. CM was unable to discuss the issue of rehab adequately, as he kept falling asleep. This topic will be discussed with Raffy again tomorrow. A: Raffy is an 79 year old man admitted on 01/24/20 with a gangrenous gallbladder P:Raffy will likely discharge home with new services for nursing and PT. If he continues toHe will follow up with his surgeon, PCP and plan of care. CM will continue to support Raffy and his family and assess for ongoing discharge concerns.
--- NOTE | 2020-01-26 10:19 | W.PM.PROGNOT ---
Date of Service Date of service: 01/26/20 Time of Service: 10:20 Objective Last Vital Signs Temp 36.5 C 01/26/20 08:32 Pulse 111 H 01/26/20 08:32 Resp 16 01/26/20 08:32 BP 100/54 L 01/26/20 08:32 Pulse Ox 95 01/26/20 08:32 Laboratory Results - last 24 hr 01/24/20 01/26/20 01/26/20 12:55 06:20 06:20 WBC 9.46 RBC 3.92 L Hgb 11.0 L Hct 34.8 L MCV 88.8 MCH 28.1 MCHC 31.6 L RDW 15.0 H Plt Count 105 L MPV 11.0 Immature Gran % 0.3 Neutrophils % 80.7 Lymphocytes % 7.7 Monocytes % 9.9 Eosinophils % 1.0 Basophils % 0.4 Nucleated RBC % 0 Absolute Neutrophils 7.63 H Absolute Lymphocytes 0.73 L Absolute Monocytes 0.94 H Absolute Eosinophils 0.09 Absolute Basophils 0.04 Sodium 141 Potassium 4.0 Chloride 108 H Carbon Dioxide 24.4 Anion Gap 8.6 BUN 40 H Creatinine 3.23 H D Estimated GFR/1.73 m2 18.58 Glucose 132 H Calcium 8.8 Magnesium 2.0 Crossmatch See Detail
[2020-01-26] MEDS: Milk of Magnesia 30 ML CUP PO (13:22)
[2020-01-26] MEDS: traMADol 50 MG TAB PO (13:22)
[2020-01-26] MEDS: Normal Saline Flush 10 ML SYR IVP ×2 (13:23→16:02)
[2020-01-26] MEDS: Enoxaparin 30 MG/0.3 ML SYR SC (15:52)
--- NOTE | 2020-01-26 16:08 | PT.INIE ---
Date of service: 01/26/20 Time of Service: 16:08 PT Notes Visit Reasons: GANGRENOUS TREVIN Physical Therapy Inpatient Initial Evaluation Date: 01/26/2020 Referring Doctor: Katiana Johnson MD PT Orders: PT CONSULT: Limited ability Precautions: Fall. Standard. Activity as tolerated. Patient Profile/Admitting Diagnosis: Raffy is an 79-year-old male with choledocholethiasis with chronic cholecystitis and is status post laparoscopic cholecystectomy on postoperative day 2. PMHX: Medical History (Updated 01/12/20 @ 11:47 by Jennifer Rodriguez DO) Abdominal pain Benign hypertension (12/09/05) <140/85; BP was high at time of colonoscopy so Dr. Taylor started him on HCTZ 2005. High BP readings @ ophtho, urol . turns out to be 2' finesteride, Dr. Smallwood d/c'pool .. will follow up in July 2018. 125/85 today, 2018, ik. 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 Unable to extract more information as patient seems to be acutely confused. Equipment Owned/DME: None Subjective: Raffy reports of being very fatigued and not comfortable in his abdominal area. Pleasantly mildly confused. Appears impulsive and lacking full motor control with maintaining sitting posture at edge of bed. Objective: General Observation: Supine in bed. Telemetry monitoring in place. Oxygenating in room air. Mental Status: Patient is alert but seems to be going on and off lucid moments during session. Requires frequent redirection to questions and instructions throughout. Pain: Verbalize discomfort in abdominal area with bed mobility activities and transfers. ROM: Right Upper Extremity: Grossly has at least 50% of AROM available Left Upper Extremity: Grossly has at least 50% of AROM available Right Lower Extremity: Grossly has at least 50% of AROM available Left Lower Extremity: Grossly has at least 50% of AROM available Strength: Right Upper Extremity: Grossly 3-/5 Left Upper Extremity: Grossly 3-/5 Right Lower Extremity: Grossly 3-/5 Left Lower Extremity:Grossly 3-/5 Bed Mobility/Transfers: Rolling moderate assist of 2 Supine to sit moderate assist with HOB at 45 degrees with moderate verbal cueing needed Sit to supine moderate assist of 2 with moderate verbal cueing needed Sit to stand moderate assist of 2 with moderate verbal cueing needed Stand to sit moderate assist of 2 with moderate verbal cueing needed Bed to chair Deferred due to safety concerns Chair to bed Deferred due to safety concerns Gait: Deferred due to safety concerns. WIll reassess in the next session. Balance: Static Sitting: Fair Dynamic Sitting: Poor Static Standing: Unable Dynamic Standing: Unable Special Tests: Mobility Limitations Standardized Measure [facility]-PAC 6 clicks Basic Mobility Inpatient Short Form: Raw Score: 12 CMS Score: 69% deficit Informed Consent/Education: Patient instructed in purpose of PT consult and plan of care. Assessment: Raffy demonstrates significant functional mobility decline and altered mental status requiring assistance of 2 caregivers and a moderate verbal cueing for overall safety and sequence and performing mobility ADLs, generalized weakness, impairment with balance, and increased risk for falls due to comorbidities and postoperative status. Patient presents with clinical signs and symptoms consistent with current/admitting diagnoses that have resulted to mobility limitations, gait instability, generalized weakness, and impairment of motor control as demonstrated by the following impairment level findings: 1. Decreased strength to BUE UE/LE major muscle groups 2. Impaired sitting/standing balance 3. Impaired activity tolerance 4. Limitation of joint range of motion in B UE/LE Impairments are contributing to the following functional limitations: 1. Dependent bed mobility skills 2. Increased dependence with transfers 3. Inability to safely ambulate without assistive device and physical assistance 4. Increase completion time for mobility ADL performance 5. Increased fall risk 6. Inability to negotiate steps alone safely Patient is assessed as a 89022 high complexity based on the following: History: 79-year-old male with impairment level findings, functional limitations, and past medical history as indicated above Examination: Demonstrable impairment in strength, balance, and mobility level with underlying impairments and functional limitations as documented above Presentation:Evolving Decision Makin high complexity Goals: Goals X1 week 1. Supine-Sit contact-guard assist 2. Sit-Supine contact-guard assist 3. Sit-Stand SBA 4. Stand-Sit SBA 5. Bed-Chair SBA 6. Chair-Bed SBA 7. Minimal assist gait on level surface with use of front wheeled walker for at least 300 feet without report of pain nor dyspnea 8. Minimal assist stair negotiation while holding onto bilateral rails for at least 5 steps without report of pain nor dyspnea 9. Good static and dynamic standing balance/tolerance Plan of Care/Treatment Plan: 1-2x/day, 7 days/week x 1 week. Plan of care has been reviewed with the GOLF BALL INSPECTOR providing the service under Physical Therapy direction. Initiate Physical Therapy intervention for strengthening, bed mobility, transfers, gait, stairs, balance training, use of assistive device. DISCHARGE RECOMMENDATIONS: Patient will benefit from usp facility placement for continued skilled physical therapy services in order to progress mobility level, strength, and balance in preparation for a safe discharge to home. TREATMENT CODE/TIME: 9716 x 30 minutes beginning at 16:08 PM. Thank you for the opportunity to participate in the care of this patient. Julieta Farley PT, DPT, CLT [facility] [place], [place]
[2020-01-26] MEDS: FAMOTIDINE 20 MG/50 ML BAG 200 MG IVPB (18:44)
[2020-01-26] MEDS: Docusate Sodium 100 MG CAP PO (21:02)
[2020-01-26] MEDS: Gabapentin 100 MG CAP PO (21:02)
[2020-01-26] MEDS: Melatonin 3 MG TAB PO (23:24)
[2020-01-27] VITALS (32 sets, daily range): BP systolic 156–200; BP diastolic 69–135; PULSE 80–100; RESP 12–21; TEMP 35.5–36.6; O2SAT 93–96
[2020-01-27] MEDS: ACETAMINOPHEN 1,000 MG/100 ML BTL 400 MG IVPB ×3 (02:00→17:38)
[2020-01-27] MEDS: PIPERACILLIN/TAZO 3.375 GM in Normal Saline 50 ML IVPB ×3 (04:14→22:52)
[2020-01-27 07:18] LABS: Anion Gap 9.8 mmol/L (3-11); BUN 42 mg/dL (7-18); CO2 24.2 mmol/L (21.0-32.0); Calcium 8.9 mg/dL (8.5-10.1); Chloride 107 mmol/L (98-107); Glucose 94 mg/dL (74-106); Magnesium 2.1 mg/dL (1.8-2.4); Potassium 3.8 mmol/L (3.5-5.1); Sodium 141 mmol/L (136-145)
--- NOTE | 2020-01-27 08:23 | W.PM.PROGNOT ---
Date of Service Date of service: 01/27/20 Time of Service: 08:23 Assessment and Plan Assessment and plan (1) Acute renal failure (ARF): Status: Acute Assessment and plan: holding TYSON adjust meds for Cr Cl hold lasix at this point-Cr is still trending up hopefully he will mobilize fluid in the next 24 hrs and duiresis naturally. Will resume lasix once fluids rending down. Qualifiers: Acute renal failure type: unspecified Qualified Code(s): N17.9 - Acute kidney failure, unspecified (2) Difficult airway: Status: Acute (3) Choledocholithiasis with chronic cholecystitis: Status: Acute (4) S/P ERCP: Status: Acute Assessment and plan: NO stent was placed (5) Obesity, Class II, BMI 35-39.9, no comorbidity: Status: Chronic (6) Memory disturbance: Status: Chronic (7) Hyperlipidemia: Status: Chronic (8) Benign hypertension: Status: Chronic Assessment and plan: will start B lion and follow closely (9) BPH w/o urinary obs/LUTS: Status: Chronic (10) Bile leak, postoperative: Status: Acute Assessment and plan: bile output is qiute low. He did have a sphinctertotomy w/ his ERCP. Hopefully this will be enough to alter the pressure gradient and he will not require a stent. Will see how he does over the weekend. (11) Anemia due to blood loss, acute: Status: Acute Assessment and plan: venefer today will follow. no signs of ongoing blood loss (12) S/P cholecystectomy: Status: Acute Assessment and plan: POD #3 doing well following surgery no further arrhythmia will monitor fluid status and kidney function closely tolerating po's minimal pain -pt does NOT want to go to rehab. He is doing much better today walking. W/ his mental status- disruption of his normal routine and an unfamiliar environment may be more detrimental than helpful. I did urge his to purchase a walker. Will see how he gets around in the next tow days. He has to be able to toilet himself w/ one assist. -needs BM -change pain meds Subjective Subjective Interval history since last seen: Pt is doing better. no headaches. No CP or SOB. no productive cough. no dysuria. no leg pain or swelling in LE. He does have edema in R arm/hand. Much more alert and stronger today. Ptis having somemild hallucinations- seeing spiders on the wall and doing some picking: motions w/ hands. Pt is aware that he is having the hallucinations. I received ultram 01/25 at 1300. Cr is 3.6 today. Will stop the ultram and switch to plan oxycodone. Pt was able to get up and walk w/ one assist today and walked in hallways. I did review the case w/ Dr. Queen. Pt has not been having any CP or SOB. He has not had any further arthmia on his tele. He is making good cl yellow urine. He does not have any LE edema. He looks mildly fluid positive- but I don't want to give him any lasix and stress the kidneys further. We have been holding the TYSON inhibitor. BP has been fine until today. We will start him on a low dose beta lion, and follow his fluid status closely. currently he does have some bile in the ELFEGO- but not a signif quantity- only 40cc out in 7hrs, and it is laz a small amount of gold bile as well as sero-sang drainage. He did NOT have a stent placed at the time of his ERCP, I assume b/c he had cholangitis. He did have stones in the duct adn did have a sphincterotmy and ballooning of the duct to clear of debris. Hopefully this will be enough, to direct the flowof bile preferentially through the CBD and stop the leak out of the cystic duct. He is eating, but needs to move his bowels. He is passing gas. Exam HENMT Other: no jaundice or thrush. c/o dry mouth no thrush Resp Effort & Inspection: normal respiratory effort, able to speak in complete sentences and no cough Auscultation: diminished lung sounds bilaterally (bases) Cardio Jugular venous pressure: no JVD Rate: regular rate Rhythm: regular rhythm GI Inspection: obesity Palpation: soft Other: good BS. picos is on and functional over the incision. some minimal billious drianage out of ELFEGO. only about 50cc/shift. not pure bile. Skin Other: no breakdown or rash no thrush Neuro Other: much more alert today Extrem General: normal to inspection, full ROM and no pedal edema Other: edema and swelling in right arm. there was an IV in this arm. Some, but to not that extent inleft arm. no pain or redness over old IV site. Objective Last Vital Signs Temp 36.2 C L 01/27/20 04:09 Pulse 80 01/27/20 04:09 Resp 13 01/27/20 04:00 BP 156/69 H 01/27/20 04:00 Pulse Ox 93 01/27/20 04:09 Laboratory Results - last 24 hr 01/27/20 06:44 Sodium 141 Potassium 3.8 Chloride 107 Carbon Dioxide 24.2 Anion Gap 9.8 BUN 42 H Creatinine 3.60 H* Estimated GFR/1.73 m2 16.40 Glucose 94 Calcium 8.9 Magnesium 2.1
[2020-01-27 08:58] LABS: Iron 21 ug/dL (65-175); Total Iron Binding Capacity 151 ug/dL (250-450); Transferrin Sat 14 % (20-55)
[2020-01-27] MEDS: Docusate Sodium 100 MG CAP PO ×2 (09:07→22:51)
--- NOTE | 2020-01-27 09:47 | PDOC.CMPRO ---
- If Service Date Differs Date of service: 01/27/20 Time of Service: 09:47 Care Management Progress Note S/O: Raffy was sitting up in bed when CM met with him. He had just completed a walk with nursing staff and was able to complete the loop on Med-surg. He seemed much clearer mentally today as well. CM discussed the possibility of rehab with Raffy, should it be necessary. He was adamant about not going to the [facility] but was unsure about [facility]. He asked that CM speak with his Reny about it. CM contacted Reny and she shared that she is really afraid of Raffy getting Covid if he goes to rehab. She would prefer that he just come home, but if absolutely necessary, she would agree to [facility]. Raffy has made a lot of progress since yesterday and may, in fact, be able to return home with home health support for nursing and PT. A referral will be sent to [facility] in case it is necessary and CM will continue to assess Raffy's progress and communicate daily with his . A: Raffy is an 79 year old man admitted on 01/24/20 with a gangrenous gallbladder P:Raffy may be discharged home with new services for nursing and PT or He may require a short stay in a SNF before returning home . A referral was sent to [facility] at his request with the hope that it will not be necessary. Raffy will follow up with his surgeon, PCP and plan of care. CM will continue to support Raffy and his family and assess for ongoing discharge concerns.
--- NOTE | 2020-01-27 11:33 | W.NUTRFU ---
Date of service: 01/27/20 Time of Service: 11:33 Nutritional Follow up NOTE: 79 year old male admitted for gangrene gallbladder, s/p open cholecystecomy with acute renal failure. BMI indicates class 3 obesity. Advanced to surgical soft diet with good po intake. Does not appear to be at nutritional risk. Time Spent in Nutritional Counseling and Treatment: 0
[2020-01-27 12:41] LABS: Bilirubin Negative (Negative); Blood Moderate (Negative); Clarity Sl Cloudy (Clear); Glucose Negative (Negative); Ketones Negative (Negative); Leukocyte Esterase Negative (Negative); Nitrite Negative (Negative); Urobilinogen 0.2 EU/dL (Up TO 0.2); pH 5.5 (5-8)
[2020-01-27 12:55] LABS: Bacteria Few HPF (Negative); C & S Indicated? No/Sq. Contamination; Casts Negative LPF (Negative); Crystals Few Uric Acid HPF (Negative); Epithelial Cells Moderate HPF (Negative); Mucus Moderate (Negative); RBC 20-50 HPF (0-2); WBC 0-2 HPF (0-5)
--- NOTE | 2020-01-27 13:00 | PT.INTREAT ---
Date of service: 01/27/20 PT Notes Visit Reasons: GANGRENOUS TREVIN Physical Therapy Inpatient Treatment Note Date: 01/27/2020 Precautions: Fall. Standard. Activity as tolerated. Subjective: Agreeable to PT session. Denies dizziness, chest pain, and lightheadedness throughout PT session. Did report discomfort in the left knee during ambulation activity that subsided with rest. Objective: General Observation: Seated in chair. Telemetry monitoring in place. Oxygenating well on room air. Mental Status: More alert and cooperative during the morning session. Able to follow single step commands. Pain: Verbalized pain in left knee with ambulation activity. Bed Mobility/Transfers: Sit to stand minimal assist Stand to sit minimal assist Bed to chair minimal assist Chair to bed minimal assist THERA EX: Session began with instruction on seated level exercises consisting of LAT use x10, seated hip flexion x10, seated hip abduction x10, and ankle DF/PF x 20 with good response. Gait: Guided through 300 feet of level surface ambulation using front-wheeled walker requiring contact-guard assist with full weight bearing, Nurse Godinez providing wheelchair follow. Lorena decreased. Intensity of left knee pain reported less today than yesterday. 3 seated rests needed to minimize SOB and knee buckling in the left. Pre-existing L knee valgus from contributing to pain. Balance: Static Sitting: Good Dynamic Sitting: Good Static Standing: Fair Dynamic Standing: Fair Assessment: Performed significantly better today with more independence and less complaint of L knee pain. Raffy demonstrates much more cognitive clarity following instructions. However, he had some visual hallucinations during an attempt for a second session in the afternoon with him stating that there are ants crawling in the ceiling. Nurse Godinez and Nurse Franco aware of said sign. [employer] Danay to attempt a second session this afternoon. PLAN: Continue with PT POC as sinitially established. DISCHARGE RECOMMENDATIONS: Patient will benefit from half-way facility placement for continued skilled physical therapy services in order to progress mobility level, strength, and balance in preparation for a safe discharge to home. TREATMENT CODE/TIME: 64040, 61462 x 32 minutes.
[2020-01-27] MEDS: Enoxaparin 30 MG/0.3 ML SYR SC (17:13)
[2020-01-27] MEDS: IRON SUCROSE COMPLEX 200 MG in Normal Saline 100 ML 400 MG IVPB (17:13)
[2020-01-27] MEDS: Metoprolol CR 25 MG TABCR 12.5 MG PO ×2 (17:38→22:51)
[2020-01-27] MEDS: Normal Saline Flush 10 ML SYR IVP ×2 (17:42→22:53)
[2020-01-27] MEDS: Melatonin 3 MG TAB PO (22:51)
[2020-01-27] MEDS: Gabapentin 100 MG CAP PO (22:51)
[2020-01-27] MEDS: Tamsulosin 0.4 MG CAPCR PO (22:53)
[2020-01-27] MEDS: Milk of Magnesia 30 ML CUP PO (22:53)
[2020-01-28] VITALS (41 sets, daily range): BP systolic 141–205; BP diastolic 61–110; PULSE 70–91; RESP 11–22; TEMP 36.2–36.6; O2SAT 93–96
--- NOTE | 2020-01-28 | DI.US_ITS ---
EXAM: US RENAL CLINICAL HISTORY: LALA. TECHNIQUE: Gates scale, color and spectral Doppler were used. COMPARISON: No exams were available for comparison FINDINGS: Renal size in cm: Right: 13.2. Left: 13.5. Echogenicity: Normal. Hydronephrosis: No. Cyst or mass: No. Nephrolithiasis: No. Other findings: None. Bladder:Normal. Ureteral jets: Right: Visualized and unremarkable. Left: Visualized and unremarkable. Prevoid vol:73 cc Postvoid vol:Patient was unable to void. Prostate: Not visualized on this examination. Renal color flow: Symmetric and within normal limits. IMPRESSION: Unremarkable examination. DATA REPOSITORY:
[2020-01-28] MEDS: ACETAMINOPHEN 1,000 MG/100 ML BTL 400 MG IVPB ×3 (01:53→17:58)
[2020-01-28] MEDS: Normal Saline Flush 10 ML SYR IVP ×3 (01:53→17:45)
[2020-01-28 03:57] LABS: Sodium, Urine 82 mmol/L
[2020-01-28 03:59] LABS: Creatinine,Urine 40.89 mg/dL; POTASSIUM,URINE RANDOM 13 mmol/L
[2020-01-28 07:18] LABS: Magnesium 2.4 mg/dL (1.8-2.4)
[2020-01-28 07:25] LABS: ALT 43 U/L (16-63); AST 30 U/L (15-37); Albumin 2.4 g/dL (3.4-5.0); Alkaline Phosphatase 62 U/L (46-116); Anion Gap 11.4 mmol/L (3-11); BUN 51 mg/dL (7-18); Bilirubin, Total 0.9 mg/dL (0.2-1.0); CO2 22.6 mmol/L (21.0-32.0); Chloride 106 mmol/L (98-107); Estimated GFR 11.91 (mL/min/1.73m2); Glucose 98 mg/dL (74-106); Potassium 4.4 mmol/L (3.5-5.1); Sodium 140 mmol/L (136-145); Total Protein 5.4 g/dL (6.4-8.2)
[2020-01-28 07:27] LABS: CREATININE 4.75 mg/dL (0.70-1.30)
[2020-01-28] MEDS: Metoprolol CR 25 MG TABCR 12.5 MG PO (08:00)
[2020-01-28] MEDS: Normal Saline 250 ML 500 ML IV (08:00)
[2020-01-28] MEDS: Docusate Sodium 100 MG CAP PO ×2 (08:00→21:35)
--- NOTE | 2020-01-28 08:29 | CMPROGNOTE_ITS ---
- If Service Date Differs Date of service: 01/28/20 Time of Service: 08:29 Care Management Progress Note S/O: Raffy was sitting up in a chair when CM met with him. He had just returned from working with PT and stated that he was a bit tired. He was again able to ambulate around the Med-Surg unit. Raffy shared that he is hoping to be able to go home vs to a SNF. Dr. Rodriguez has stated that if he is able to get in and out of bed and to the bathroom independently, he will be able to go home. raffy appears to be improving in terms of his mental clarity and he is much more awake and conversant. Raffy's creatinine has been increasing over the past few days; this is being monitored closely by the provider. A: Raffy is an 79 year old man admitted on 01/24/20 with a gangrenous gallbladder P:Raffy is likely to be discharged home with new services for nursing and PT, however he may require a short stay in a SNF first. A referral was sent to [facility] at his request with the hope that it will not be necessary. Raffy will follow up with his surgeon, PCP and plan of care. CM will continue to support Raffy and his family and assess for ongoing discharge concerns.
[2020-01-28] MEDS: PIPERACILLIN/TAZO 3.375 GM in Normal Saline 50 ML IVPB ×2 (10:29→21:35)
--- NOTE | 2020-01-28 13:50 | W.MEDCONSULT ---
Date of service: 01/28/20 Time of Service: 13:50 Assessment and Plan Assessment and plan (1) S/P cholecystectomy: Status: Acute Assessment and plan: Gangrenous GB required open izzy. On Zosyn WBC count normalized (2) Acute renal failure (ARF): Status: Acute Assessment and plan: Insult likely d/t blood loss and possible short periods of hypotension. Urine output is now good. Avoiding nephrotoxins and hypotension. Renal US ordered/pending. Monitor. Qualifiers: Acute renal failure type: unspecified Qualified Code(s): N17.9 - Acute kidney failure, unspecified History of Present Illness History of Present Illness Chief Complaint: LALA Narrative: This is an 79 yo male with a PMH of HLD, HTN, BPH, memory disturbance. He is post-op open cholecystectomy for acute gangrenous cholecystitis/cholelithiasis. Consultation requested d/t LALA. Intra-operative blood loss estimated at 1L. His Hgb was 13.5 on 01/24/2020, and then 12.3 on 01/24 and 11.0 on 01/25. His creatinine was 1.32 on 01/12/2020. It then trended downward 2.25>3.23>3.60.4.75. Review of Systems Constitutional Constitutional: Denies body ache(s), Denies chills and Reports fatigue Cardiovascular Cardiovascular: Denies chest pain, Denies irregular heart rhythm and Denies dyspnea Respiratory Respiratory: Denies chest congestion, Denies cough and Denies dyspnea Gastrointestinal Gastrointestinal: Reports abdominal pain (appropriate discomfort at incision), Denies heartburn, Denies nausea, Denies vomiting and Reports other (+ flatus) Genitourinary Genitourinary: Reports difficulty urinating (adamson placed last PM) Comments: c/o pain d/t adamson catheter Neurologic Neurologic: Reports confusion Psychiatric Psychiatric: Reports anxiety and Reports confusion Endocrine Endocrine: Reports fatigue [facility] Medical History Abdominal pain Anemia due to blood loss, acute Benign hypertension (12/09/05) <140/85; BP was high at time of colonoscopy so Dr. Taylor started him on HCTZ 2005. High BP readings @ ophtho, urol . turns out to be 2' finesteride, Dr. Smallwood d/c'd .. will follow up in July 2018. 125/85 today, 06/2018, ik. 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 [email or web address] Current gender identity: male What type of physical activity do you participate in: none Working smoke detector in home: Yes Fire extinguisher in home: Yes Carbon monox detector in home: Yes Do you feel safe at home: Yes Do you feel safe in your relationship?: Yes Exam Const General: cooperative, in distress and anxious Nutritional Appearance: obese Orientation: alert and confused Resp Effort & Inspection: normal respiratory effort Auscultation: clear to auscultation bilaterally Cardio Rate: regular rate Rhythm: regular rhythm Heart Sounds: S1 normal and S2 normal GI Palpation: soft and tender (appropriate at incision site. Bandage in place) Other: Adamson in place. Clear urine in bag Extrem General: no pedal edema and no calf tenderness Right upper extremity: edema Results Last Vital Signs Temp 36.4 C L 12/18/20 03:30 Pulse 73 01/28/20 12:00 Resp 22 01/28/20 10:00 BP 147/74 H 01/28/20 12:00 Pulse Ox 96 01/28/20 06:01 Labs Result diagrams: 01/26/20 06:20 01/28/20 06:30 Labs: Laboratory Results - last 24 hr 01/28/20 01/28/20 01/28/20 03:05 03:13 06:30 Sodium Potassium Chloride Carbon Dioxide Anion Gap BUN Creatinine Estimated GFR/1.73 m2 Glucose Calcium Magnesium 2.4 Total Bilirubin AST ALT Alkaline Phosphatase Total Protein Albumin Ur Random Creatinine 40.89 Ur Random Sodium 82 Ur Random Potassium 13 01/28/20 06:30 Sodium 140 Potassium 4.4 Chloride 106 Carbon Dioxide 22.6 Anion Gap 11.4 H BUN 51 H D Creatinine 4.75 H* D Estimated GFR/1.73 m2 11.91 Glucose 98 Calcium 9.0 Magnesium Total Bilirubin 0.9 AST 30 ALT 43 Alkaline Phosphatase 62 Total Protein 5.4 L Albumin 2.4 L Ur Random Creatinine Ur Random Sodium Ur Random Potassium
--- NOTE | 2020-01-28 14:21 | W.PM.PROGNOT ---
Date of Service Date of service: 01/28/20 Time of Service: 13:55 Assessment and Plan Assessment and plan (1) Acute renal failure (ARF): Status: Acute Assessment and plan: holding TYSON and furosemide Cr up again today but making good urine this afternoon Remove adamson as its causing pain. He is on Flomax for his BPH Bladder scan as needed and straight cath if needed Qualifiers: Acute renal failure type: unspecified Qualified Code(s): N17.9 - Acute kidney failure, unspecified (2) Difficult airway: Status: Acute Qualifiers: Encounter type: subsequent encounter Qualified Code(s): T88.4XXD - Failed or difficult intubation, subsequent encounter (3) Choledocholithiasis with chronic cholecystitis: Status: Acute (4) S/P ERCP: Status: Acute Assessment and plan: NO stent was placed (5) Obesity, Class II, BMI 35-39.9, no comorbidity: Status: Chronic (6) Memory disturbance: Status: Chronic Assessment and plan: His mentation seems OK this afternoon he is tired and wants to go home. He misses his (7) Hyperlipidemia: Status: Chronic Qualifiers: Hyperlipidemia type: unspecified Qualified Code(s): E78.5 - Hyperlipidemia, unspecified (8) Benign hypertension: Status: Chronic Assessment and plan: will start B lion and follow closely start furosemide when Cr normalized (9) BPH w/o urinary obs/LUTS: Status: Chronic Assessment and plan: Continue Flomax (10) Bile leak, postoperative: Status: Acute Assessment and plan: 30 cc in last 8 hours. Not a lot of output but it is pure bile. Will watch over the weekend. If continues to have billious output on Friday then will call GI and see about scheduling an ERCP with stent placement (11) Anemia due to blood loss, acute: Status: Acute Assessment and plan: venefer today will follow. no signs of ongoing blood loss recheck hgb tomorrow (12) S/P cholecystectomy: Status: Acute Assessment and plan: POD #4 doing OK following surgery no further arrhythmia will monitor fluid status and kidney function closely tolerating po's minimal pain -pt does NOT want to go to rehab. He is doing much better today walking. W/ his mental status- disruption of his normal routine and an unfamiliar environment may be more detrimental than helpful. I did urge his to purchase a walker. Will see how he gets around in the next tow days. He has to be able to toilet himself w/ one assist. -needs BM -change pain meds Subjective Subjective Interval history since last seen: Raffy is crying as I walk into his room. He is upset at having a adamson. He complains of burning pain in his Penis. He was up and walking with nursing and PT today. He walked out of the unit. HIs UOP has increased after a small bolus this morning. His nurse today has been pushing the water with him today as well. Exam Const General: cooperative, comfortable and other (very emotional, crying) Orientation: alert and oriented x3 HENMT Head: normocephalic and atraumatic Resp Effort & Inspection: normal respiratory effort Auscultation: clear to auscultation bilaterally Cardio Rate: regular rate Rhythm: regular rhythm GI Palpation: soft and nontender Auscultation: normal bowel sounds Other: SEVEN dressing intact ELFEGO drain with billious output Objective Last Vital Signs Temp 97.5 F L 01/28/20 03:30 Pulse 73 01/28/20 12:00 Resp 22 01/28/20 10:00 BP 147/74 H 01/28/20 14:05 Pulse Ox 96 01/28/20 06:01 Laboratory Results - last 24 hr 01/28/20 01/28/20 01/28/20 03:05 03:13 06:30 Sodium Potassium Chloride Carbon Dioxide Anion Gap BUN Creatinine Estimated GFR/1.73 m2 Glucose Calcium Magnesium 2.4 Total Bilirubin AST ALT Alkaline Phosphatase Total Protein Albumin Ur Random Creatinine 40.89 Ur Random Sodium 82 Ur Random Potassium 13 01/28/20 06:30 Sodium 140 Potassium 4.4 Chloride 106 Carbon Dioxide 22.6 Anion Gap 11.4 H BUN 51 H D Creatinine 4.75 H* D Estimated GFR/1.73 m2 11.91 Glucose 98 Calcium 9.0 Magnesium Total Bilirubin 0.9 AST 30 ALT 43 Alkaline Phosphatase 62 Total Protein 5.4 L Albumin 2.4 L Ur Random Creatinine Ur Random Sodium Ur Random Potassium
--- NOTE | 2020-01-28 15:29 | PTTR_ITS ---
Date of service: 01/28/20 Time of Service: 09:50 PT Notes Visit Reasons: GANGRENOUS TREVIN Inpatient Physical Therapy Treatment Note [facility] Date: 01/28/2020 PRECAUTIONS: Fall SUBJECTIVE: Raffy is tearful during afternoon session stating I may not get a chance to see my family again. OBJECTIVE: PAIN: No complaints of pain BED MOBILITY/TRANSFERS Sit-stand: S in a.m.; CGA in p.m. Stand-sit: SBA requiring verbal cueing for safety GAIT Assistive Device: FWW Weight bearing: Full Assist: CGA Distance: 200' in a.m.; 50' +100' x2 in p.m. Deviation: Cueing required for FWW mechanics in both a.m. and p.m.; increased S OB, seated rest x2, standing rest x4 in p.m. THEREX: Patient completed several lower extremity strengthening exercises, while in a seated position, as per flow sheet. He requires verbal and visual cueing for proper exercise performance. STAIRS: Up/down 3x4 and 2x6 using B rails and a step to pattern with CGA ASSESSMENT: Patient tolerated session with complaint of increased fatigue, demonstrating increased SOB with gait training in p.m. Patient was able to tolerate the addition of stair training in p.m. He would benefit from continued global strengthening as well as continued bed mobility, transfer, and gait training for improved mobility and activity tolerance. PLAN: Continue with global strengthening, bed mobility/transfers/gait training for improved mobility and activity tolerance TREATMENT CODE/TIME: Session 1: 25 minutes; 48983, [id number] Section 2: 45 minutes; 14565 x2, 42487
--- NOTE | 2020-01-28 16:34 | DI.VRAD_ITS ---
PROCEDURE INFORMATION: Exam: US Retroperitoneal; Complete; Kidneys and Bladder Exam date and time: 01/28/2020 4:16 PM Age: 79 years old Clinical indication: Abnormal findings; Abnormal lab test; Abnormal kidney function lab tests; Prior surgery; Surgery date: Post-operative (0-2 days); Surgery type: S/P cholecystectomy TECHNIQUE: Imaging protocol: Real-time ultrasound of the retroperitoneum with image documentation. Complete exam focused on the kidneys and bladder. COMPARISON: SD US ABDOMEN LIMITED 09/01/2019 11:05 AM FINDINGS: Right kidney: The right kidney measures 13.2 cm in length. Left kidney: The left kidney measured 13.5 cm in length. Urinary bladder: There was a prevoid urinary bladder volume of 73 cc. There are right and left ureteral jets. Other findings: The patient was unable to void. IMPRESSION: The kidneys appear within normal limits. Dictated and Authenticated by: Dino Avendaño MD. Ordering:CASEY Witt MD
[2020-01-28] MEDS: Enoxaparin 30 MG/0.3 ML SYR SC (17:43)
[2020-01-28] MEDS: Metoprolol 5 MG/5 ML VIAL IVP ×2 (17:46→22:00)
[2020-01-28] MEDS: FAMOTIDINE 20 MG/50 ML BAG 200 MG IVPB (18:27)
[2020-01-28] MEDS: Normal Saline 500 ML 20 ML IV (18:34)
[2020-01-28] MEDS: Melatonin 3 MG TAB PO (21:35)
[2020-01-28] MEDS: Tamsulosin 0.4 MG CAPCR PO (21:35)
[2020-01-28] MEDS: Gabapentin 100 MG CAP PO (21:35)
[2020-01-29] VITALS (31 sets, daily range): BP systolic 102–198; BP diastolic 64–99; PULSE 72–88; RESP 12–21; TEMP 36.2–36.8; O2SAT 95–98
[2020-01-29] MEDS: Metoprolol 5 MG/5 ML VIAL IVP (02:25)
[2020-01-29] MEDS: ACETAMINOPHEN 1,000 MG/100 ML BTL 400 MG IVPB ×2 (02:55→09:01)
[2020-01-29 06:30] LABS: Abs Immature Grans 0.07 10^3/uL (0.0-0.06); Absolute Basophil Count 0.04 10^3/uL (0.0-0.2); Absolute Eosinophil Count 0.22 10^3/uL (0.0-0.7); Absolute Lymphocyte Count 0.78 10^3/uL (1.2-3.4); Absolute Monocyte Count 0.73 10^3/uL (0.1-0.8); Absolute Neutrophil Count 5.08 10^3/uL (1.2-6.7); Basophils % 0.6; Eosinophils % 3.2; HCT 33.2 % (40.0-50.0); HGB 10.5 g/dL (13.5-17.5); Lymphocytes % 11.3; MCH 27.5 pg (27.0-33.0); MCHC 31.6 % (32.0-36.0); MCV 86.9 fL (80-95); MPV 10.4 fL (8.0-11.0); Monocytes % 10.5; Neutrophils % 73.4; Nucleated RBC 0 %; Platelet Count 128 10^3/uL (130-400); RBC 3.82 10^6/uL (4.36-5.78); RDW 14.9 % (11.8-14.1); RDW-SD 47.2 fL; WBC 6.92 10^3/uL (4.4-10.8)
[2020-01-29 06:50] LABS: Anion Gap 9.3 mmol/L (3-11); BUN 48 mg/dL (7-18); CO2 23.7 mmol/L (21.0-32.0); CREATININE 3.46 mg/dL (0.70-1.30); Calcium 9.5 mg/dL (8.5-10.1); Chloride 106 mmol/L (98-107); Estimated GFR 17.16 (mL/min/1.73m2); Glucose 84 mg/dL (74-106); Magnesium 2.4 mg/dL (1.8-2.4); Potassium 3.8 mmol/L (3.5-5.1); Sodium 139 mmol/L (136-145)
--- NOTE | 2020-01-29 08:20 | W.PM.PROGNOT ---
Date of Service Date of service: 01/29/20 Time of Service: 10:39 Assessment and Plan Assessment and plan (1) Acute renal failure (ARF): Status: Acute Assessment and plan: Cr improving - down to 3.46 from 4.75. Check CPK, though I agree that etiology is blood loss/intraop hypotension. Large amount of clear urine is both encouraging and concerning (?able to concentrate urine/ATN). Monitor Q6H bladder scans/PVRs. Avoiding nephrotoxins and hypotension. Us renal without abnormalities. Do not restart clint-i or lasix. Continue monitoring Cr, I/O's, daily weights. Qualifiers: Acute renal failure type: unspecified Qualified Code(s): N17.9 - Acute kidney failure, unspecified (2) Encephalopathy acute: Status: Suspected Assessment and plan: vs undiagnosed cognitive deficit/early dementia. Certainly, between LALA and constipation following a major surgery for gangrenous gallbladder, any of these or their combination could be the cause of encephalopathy. However, it is also suspected that the patient might have mild baseline dementia. Continue to monitor mental status. (3) Urinary incontinence: Status: Acute Assessment and plan: Concern for overflow incontinence. The patient is on flomax - continue. Monitor PVRs/Q6H. (4) S/P cholecystectomy: Status: Acute Assessment and plan: Gangrenous cholecystitis, s/p open cholecystectomy, on zosyn. Seems do be doing better. General surgery is not sure but is concerned about possible bile leak. Continue zosyn. Encourage IS. (5) Constipation: Status: Acute Subjective Subjective Interval history since last seen: Mr Molbey states that he is feeling good. He stated that he walked a loop and had a large BM. He is feeling better after that. Denies dizziness, chest pain, shortness of breath, nausea/vomiting. A&Ox2, pleasantly confused. Knows he is in the hospital in [facility], thinks it is October of 2019. Has a hard time with remembering who the president is, but then does remember it is Trump. Incontinent of large amounts of urine today. Nursing will be weighbing diapers as it is difficult to assess UOP. Light colored urine. Restless, per nursing. Exam Narrative Exam Narrative: General: Very pleasant obese male, sitting up in a chair, napping, easily arousable, A&Ox2 HEENT: EOMI, MMM Heart: RRR, no m/r/g Lungs: diminished at B bases Abdomen:soft, incision dressed; ELFEGO drain with mostly sanguenous contents Extremities: +1 edema at B ankles, symmetric Objective Last Vital Signs Temp 36.2 C L 01/28/20 23:58 Pulse 76 01/29/20 06:00 Resp 13 01/29/20 06:00 BP 178/96 H 01/29/20 06:00 Pulse Ox 96 01/29/20 00:01 Laboratory Results - last 24 hr 01/29/20 01/29/20 06:10 06:10 WBC 6.92 RBC 3.82 L Hgb 10.5 L Hct 33.2 L MCV 86.9 MCH 27.5 MCHC 31.6 L RDW 14.9 H Plt Count 128 L MPV 10.4 Immature Gran % 1.0 Neutrophils % 73.4 Lymphocytes % 11.3 Monocytes % 10.5 Eosinophils % 3.2 Basophils % 0.6 Nucleated RBC % 0 Absolute Neutrophils 5.08 Absolute Lymphocytes 0.78 L Absolute Monocytes 0.73 Absolute Eosinophils 0.22 Absolute Basophils 0.04 Sodium 139 Potassium 3.8 Chloride 106 Carbon Dioxide 23.7 Anion Gap 9.3 BUN 48 H Creatinine 3.46 H D Estimated GFR/1.73 m2 17.16 Glucose 84 Calcium 9.5 Magnesium 2.4
[2020-01-29] MEDS: Docusate Sodium 100 MG CAP PO (08:58)
[2020-01-29] MEDS: Metoprolol CR 25 MG TABCR 12.5 MG PO (08:58)
[2020-01-29] MEDS: Milk of Magnesia 30 ML CUP PO (08:59)
[2020-01-29] MEDS: PIPERACILLIN/TAZO 3.375 GM in Normal Saline 50 ML IVPB (09:30)
--- NOTE | 2020-01-29 09:52 | PDOC.CMPRO ---
Care Management Progress Note S/O: Raffy remains pleasantly confused per MD. He was up in his chair for breakfast and continues to require one assist with FWW. With progress in mobility and continued stability, anticipate he will be permitted to return home with increased VNA services. CM continues to follow. A: Raffy is an 79 year old man admitted on 01/24/20 with a gangrenous gallbladder P: Raffy is likely to be discharged home with new VNA services for RN and PT, however he may require a short stay in a SNF first. A referral was sent to [facility] at his request with the hope that it will not be necessary. Raffy will follow up with his surgeon, PCP and plan of care. CM will continue to support Raffy and his family and assess for ongoing discharge concerns.
--- NOTE | 2020-01-29 10:04 | PGE_ITS ---
Date of Service Date of service: 01/29/20 Time of Service: 10:04 Assessment and Plan Assessment and plan (1) Acute renal failure (ARF): Status: Acute Assessment and plan: holding TYSON and furosemide Cr is down this am He is making good urine and it looks like he is diuresing on his own at this point Electrolytes continmue to be OK Renal US was normal Bladder scan as needed and straight cath if needed Qualifiers: Acute renal failure type: unspecified Qualified Code(s): N17.9 - Acute kidney failure, unspecified (2) Choledocholithiasis with chronic cholecystitis: Status: Acute (3) S/P ERCP: Status: Acute Assessment and plan: NO stent was placed (4) Obesity, Class II, BMI 35-39.9, no comorbidity: Status: Chronic (5) Memory disturbance: Status: Chronic Assessment and plan: His mentation seems OK this afternoon he is tired and wants to go home. He misses his (6) Hyperlipidemia: Status: Chronic Qualifiers: Hyperlipidemia type: unspecified Qualified Code(s): E78.5 - Hyperlipide soheila, unspecified (7) Benign hypertension: Status: Chronic Assessment and plan: will start B lion and follow closely start furosemide when Cr normalized (8) BPH w/o urinary obs/LUTS: Status: Chronic Assessment and plan: Continue Flomax Incontinent of urine right now (9) Bile leak, postoperative: Status: Acute Assessment and plan: 30 cc in last 8 hours. Output is more serosanguinous this morning. Will watch over the weekend. If continues to have billious output on Friday then will call GI and see about scheduling an ERCP with stent placement (10) Anemia due to blood loss, acute: Status: Acute Assessment and plan: Hgb slightly down, this may be all due to fluid overload Not symptomatic Continue to watch (11) S/P cholecystectomy: Status: Acute Assessment and plan: POD #5 doing OK following surgery no further arrhythmia will monitor fluid status and kidney function closely tolerating po's minimal pain -pt does NOT want to go to rehab. He is doing much better today walking. W/ his mental status- disruption of his normal routine and an unfamiliar enviro nment may be more detrimental than helpful. I did urge his to purchase a walker. Will see how he gets around in the next tow days. He has to be able to toilet himself w/ one assist. Will need Home Health, PT and OT at Home if able to go home Subjective Subjective Interval history since last seen: Mr. Mobley had an ok night. He had a large soft and formed bowel movement this morning. He is also incontinent of urine. His BP has been stable as well as his pulse. He has been afebrile. Per nursing he is confused this am as well. He has been very busy. Getting up and down from his bed. PT is currently in the room working with him. Exam Const General: cooperative Orientation: alert [facility] Head: normocephalic and atraumatic Resp Effort & Inspection: normal respiratory effort Auscultation: clear to auscultation bilaterally Cardio Rate: regular rate Rhythm: regular rhythm GI Inspection: incision (SEVEN dressing intact) Palpation: soft and no hepatosplenomegaly Auscultation: normal bowel sounds Abdomen image: 1. ELFEGO drain 2. Incision Objective Last Vital Signs Temp 97.2 F L 01/29/20 09:15 Pulse 77 01/29/20 09:15 Resp 16 01/29/20 09:15 BP 102/88 01/29/20 09:15 Pulse Ox 86 L 01/29/20 09:15 Laboratory Results - last 24 hr 01/29/20 01/29/20 06:10 06:10 WBC 6.92 RBC 3.82 L Hgb 10.5 L Hct 33.2 L MCV 86.9 MCH 27.5 MCHC 31.6 L RDW 14.9 H Plt Count 128 L MPV 10.4 Immature Gran % 1.0 Neutrophils % 73.4 Lymphocytes % 11.3 Monocytes % 10.5 Eosinophils % 3.2 Basophils % 0.6 Nucleated RBC % 0 Absolute Neutrophils 5.08 Absolute Lymphocytes 0.78 L Absolute Monocytes 0.73 Absolute Eosinophils 0.22 Absolute Basophils 0.04 Sodium 139 Potassium 3.8 Chloride 106 Carbon Dioxide 23.7 Anion Gap 9.3 BUN 48 H Creatinine 3.46 H D Estimated GFR/1.73 m2 17.16 Glucose 84 Calcium 9.5 Magnesium 2.4
[2020-01-29 11:30] LABS: Creatine Kinase 47 U/L (39-308)
--- NOTE | 2020-01-29 12:50 | PT.INTREAT ---
Date of service: 01/29/20 Time of Service: 09:50 PT Notes Visit Reasons: GANGRENOUS TREVIN Inpatient Physical Therapy Treatment Note [facility] Date: 01/29/2020 PRECAUTIONS: Fall, Standard, Activities as tolerated SUBJECTIVE: Stated he is glad to get up to walk and exercise. OBJECTIVE: PAIN: No complaints of pain. BED MOBILITY/TRANSFERS Up in chair with nursing staff when I arrived to patients room. Sit-stand: SBA Stand-sit: SBA GAIT Assistive Device: FWW Weight bearing: Full Assist: CGA Distance: Deviation: Tends to keep walker too far in front of him. THEREX: Performed ankle pumps, LAQs, seated hip flexion and hip abd/add for 10 reps x 2 sets each. STAIRS: Held on stairs today. Nursing staff originally unable to assist at time of PT. Hope to try tomorrow. ASSESSMENT: Tolerated today's session well, but tends to move spontaneously and occasionally unsafely. Needs to keep walker closer to him when he ambulates. PLAN: Continue with current POC with focus on improved strength in extremities, improved ambulation and continued practice on stairs for return to home. TREATMENT CODE/TIME: 04904 x 1, [id number] x 1, (35') 9:50 to 10:25 am
[2020-01-29 13:49] LABS: Bilirubin Negative (Negative); Blood Moderate (Negative); Clarity Sl Cloudy (Clear); Glucose Negative (Negative); Ketones Negative (Negative); Leukocyte Esterase Negative (Negative); Nitrite Negative (Negative); Urobilinogen 0.2 EU/dL (Up TO 0.2); pH 5.5 (5-8)
[2020-01-29 13:58] LABS: WBC 0-2 HPF (0-5)
[2020-01-29 13:59] LABS: Bacteria Rare HPF (Negative); C & S Indicated? No; Casts Negative LPF (Negative); Crystals Few Uric Acid HPF (Negative); Epithelial Cells Rare HPF (Negative); Mucus Trace (Negative); RBC 20-50 HPF (0-2)
[2020-01-29] MEDS: Normal Saline 1,000 ML 75 ML IV (16:21)
[2020-01-29 16:33] LABS: Anion Gap 7.2 mmol/L (3-11); BUN 49 mg/dL (7-18); CO2 26.8 mmol/L (21.0-32.0); CREATININE 3.39 mg/dL (0.70-1.30); Calcium 9.6 mg/dL (8.5-10.1); Chloride 105 mmol/L (98-107); Estimated GFR 17.57 (mL/min/1.73m2); Glucose 115 mg/dL (74-106); Potassium 3.9 mmol/L (3.5-5.1); Sodium 139 mmol/L (136-145)
[2020-01-29] MEDS: Enoxaparin 30 MG/0.3 ML SYR SC (17:06)
[2020-01-29] MEDS: Amoxicillin 500/Clav. 125 TAB PO (20:56)
[2020-01-29] MEDS: Lidocaine 2% Jelly 6 ML SYR (21:45)
[2020-01-29] MEDS: Melatonin 3 MG TAB PO (21:53)
[2020-01-29] MEDS: Tamsulosin 0.4 MG CAPCR PO (21:53)
[2020-01-30] VITALS (62 sets, daily range): BP systolic 107–218; BP diastolic 61–117; PULSE 64–98; RESP 14–27; TEMP 36.2–36.8; O2SAT 93–100
[2020-01-30] MEDS: Normal Saline 1,000 ML 75 ML IV ×2 (05:46→23:37)
[2020-01-30 06:49] LABS: Anion Gap 7.7 mmol/L (3-11); BUN 40 mg/dL (7-18); CO2 25.3 mmol/L (21.0-32.0); CREATININE 2.75 mg/dL (0.70-1.30); Calcium 9.3 mg/dL (8.5-10.1); Chloride 108 mmol/L (98-107); Estimated GFR 22.37 (mL/min/1.73m2); Glucose 100 mg/dL (74-106); Magnesium 2.2 mg/dL (1.8-2.4); Potassium 3.7 mmol/L (3.5-5.1); Sodium 141 mmol/L (136-145)
[2020-01-30] MEDS: Metoprolol 5 MG/5 ML VIAL IVP ×3 (07:33→23:37)
--- NOTE | 2020-01-30 08:12 | PGE_ITS ---
Date of Service Date of service: 01/30/20 Time of Service: 10:25 Assessment and Plan Assessment and plan (1) Acute renal failure (ARF): Status: Acute Assessment and plan: Cr continue to improve - 2.75 today. We will continue NS @75 cc/hr through tomorrow. Etiology is blood loss/intraop hypotension. S/p adamson overnight - continue monitoring I/O's, daily weights. Avoiding nephrotoxins and hypotension. Us renal without abnormalities. Do not restart clint-i or lasix. Qualifiers: Acute renal failure type: unspecified Qualified Code(s): N17.9 - Acute kidney failure, unspecified (2) Hypertensive urgency: Status: Acute Assessment and plan: May have contributed to confusion overnight (hypertensive encephalopathy). Increase metoprolol. Add norvasc. Continue prn IV lopressor. I think IVF should be continued through tomorrow at least. (3) Encephalopathy acute: Status: Suspected Assessment and plan: vs undiagnosed cognitive deficit/early dementia. Hypertensive encephalopathy also a possibility, but mental status is better despite BP being high now. It is suspected that the patient might have mild baseline dementia with sundowning which we've been seeing here. Continue to monitor mental status. (4) Urinary incontinence: Status: Acute Assessment and plan: S/p adamson for now. Will need a voiding trial once Cr normalized. (5) S/P cholecystectomy: Status: Acute Assessment and plan: Gangrenous cholecystitis, s/p open cholecystectomy, on augmentin. Progressing nicely. General surgery is not sure but is concerned about possible bile leak. Encourage IS. Defer post-op care to primary team. (6) Constipation: Status: Resolved Assessment and plan: Continue bowel regimen. Subjective Subjective Interval history since last seen: Confused overnight, better during the day today. Denies dizziness, chest pain, shortness of breath, nausea, pain. Hypertensive - SBPs up to 202, curretnly 195/96. Afebrile. 1100 cc out in adamson overnight. On NS at 75 cc/hr. No desaturations on RA. 30 cc serosanguenous out of ELFEGO drain. Exam Narrative Exam Narrative: General: Very pleasant obese male, sitting up in a chair, A&Ox2, also seen ambulating in the hallway with a walker without issue HEENT: EOMI, MMM Heart: RRR, no m/r/g Lungs: slight crackles at B bases Abdomen:soft, incision dressed; ELFEGO drain with serosanguenous contents Extremities: +1 edema at B ankles, symmetric, unchanged from yesterday Objective Last Vital Signs Temp 36.2 C L 01/30/20 07:42 Pulse 82 01/30/20 07:42 Resp 19 01/30/20 07:42 BP 202/94 H 01/30/20 07:42 Pulse Ox 93 01/30/20 07:42 Laboratory Results - last 24 hr 01/28/20 01/29/20 01/29/20 03:13 06:10 13:39 Sodium 139 Potassium 3.8 Chloride 106 Carbon Dioxide 23.7 Anion Gap 9.3 BUN 48 H Creatinine 3.46 H D Estimated GFR/1.73 m2 17.16 Glucose 84 Calcium 9.5 Magnesium 2.4 Creatine Kinase 47 Urine Color Yellow Urine Clarity Sl cloudy Urine pH 5.5 Ur Specific [place] 1.020 Urine Protein Negative Urine Ketones Negative Urine Blood Moderate H Urine Nitrite Negative Urine Bilirubin Negative Urine Urobilinogen 0.2 Ur Leukocyte Esterase Negative Urine RBC 20-50 H Urine WBC 0-2 Ur Epithelial Cells Rare Urine Crystals Few uric acid Urine Bacteria Rare Urine Casts Negative Urine Mucus Trace Ur Culture Indicated? No Urine Chloride 78 Urine Glucose Negative 01/29/20 01/30/20 16:12 06:20 Sodium 139 141 Potassium 3.9 3.7 Chloride 105 108 H Carbon Dioxide 26.8 25.3 Anion Gap 7.2 7.7 BUN 49 H 40 H D Creatinine 3.39 H 2.75 H Estimated GFR/1.73 m2 17.57 22.37 Glucose 115 H 100 Calcium 9.6 9.3 Magnesium 2.2 Creatine Kinase Urine Color Urine Clarity Urine pH Ur Specific [place] Urine Protein Urine Ketones Urine Blood Urine Nitrite Urine Bilirubin Urine Urobilinogen Ur Leukocyte Esterase Urine RBC Urine WBC Ur Epithelial Cells Urine Crystals Urine Bacteria Urine Casts Urine Mucus Ur Culture Indicated? Urine Chloride Urine Glucose
[2020-01-30] MEDS: Amoxicillin 500/Clav. 125 TAB PO ×2 (08:29→20:04)
[2020-01-30] MEDS: Metoprolol 12.5 MG TAB PO ×2 (08:29→20:03)
[2020-01-30] MEDS: Famotidine 20 MG TAB PO (08:29)
--- NOTE | 2020-01-30 08:40 | NUR.NOTE ---
Patient set up with breakfast. Patient begins feeding himself.Nursing Note:
--- NOTE | 2020-01-30 09:20 | PDOC.CMPRO ---
Care Management Progress Note S/O: Raffy remains pleasantly confused per MD. He was up in his chair for breakfast and continues to require one assist with FWW. With progress in mobility and continued stability, anticipate he will be permitted to return home with increased VNA services. Oksana reports feeling comfortable with this plan. She states that they have a downstairs bathroom with a handicap toilet, a shower chair and FWW. She is agreeable to VNA supports and shares that Raffy and her are really struggling with being apart. She reports I am going to get weepy talking about this but is upset that she can not see Raffy and support him. She shares that he has been calling her at all hours of the night, and having nightmares. She noted, that once he was able to have a good night sleep he was much clearer mentally. She is attributing his confusion to the infection as she states he was working and independent prior to surgery. She reviewed Raffy is currently having issues with voiding and incontinence which he is really struggling with as he feels embarrassed; she believes the Ng catheter was again placed last night; will need to confirm if Raffy will have Ng catheter upon discharge or have another voiding trial. CM continues to follow. A: Raffy is an 79 year old man admitted on 01/24/20 with a gangrenous gallbladder P: Raffy is likely to be discharged home with new VNA services for RN and PT, OT, he has a FWW at home-undetermined if Ng will remain upon discharge. Referral sent to [facility] at his request with the hope that it will not be necessary, anticipate he will return home at this time. Raffy will follow up with his surgeon, PCP and plan of care. CM will continue to support Raffy and his family and assess for ongoing discharge concern
[2020-01-30] MEDS: amLODIPine 5 MG TAB PO (09:46)
--- NOTE | 2020-01-30 09:49 | NUR.NOTE ---
5mg of Norvasc given to patient PO to address elevated BP OF 197/89.Nursing Note:
[2020-01-30] MEDS: Nystatin POWDER 15 GM JAR TP ×3 (09:56→21:11)
--- NOTE | 2020-01-30 10:32 | W.PM.PROGNOT ---
Date of Service Date of service: 01/30/20 Time of Service: 10:32 Assessment and Plan Assessment and plan (1) Acute renal failure (ARF): Status: Acute Assessment and plan: holding TYSON and furosemide Cr continues to improve He is making good urine and it looks like he is diuresing on his own at this point Electrolytes continue to be OK Renal US was normal Adamson back in due to overflow incontinence Qualifiers: Acute renal failure type: unspecified Qualified Code(s): N17.9 - Acute kidney failure, unspecified (2) Choledocholithiasis with chronic cholecystitis: Status: Acute (3) S/P ERCP: Status: Acute Assessment and plan: NO stent was placed (4) Obesity, Class II, BMI 35-39.9, no comorbidity: Status: Chronic (5) Memory disturbance: Status: Chronic Assessment and plan: Confused at night time Alert and oriented this am. Knows who I am. Speech is clear. (6) Hyperlipidemia: Status: Chronic Qualifiers: Hyperlipidemia type: unspecified Qualified Code(s): E78.5 - Hyperlipidemia, unspecified (7) Benign hypertension: Status: Chronic Assessment and plan: Hypertensive since last night Appreciate Dr. Maria assisting with his BP (8) BPH w/o urinary obs/LUTS: Status: Chronic Assessment and plan: Continue Flomax Adamson in place (9) Bile leak, postoperative: Status: Acute Assessment and plan: Seems to have resolved. Most likely the bile was leaking from the raw liver surface. ELFEGO output now more bloody Will await for it to become for serous before removing it (10) Anemia due to blood loss, acute: Status: Acute Assessment and plan: Hgb slightly down, this may be all due to fluid overload Not symptomatic Continue to watch (11) S/P cholecystectomy: Status: Acute Assessment and plan: POD #6 doing OK following surgery no further arrhythmia will monitor fluid status and kidney function closely. Appreciate Dr. Maria assisting with this tolerating po's minimal pain -pt does NOT want to go to rehab. He is doing much better today walking. W/ his mental status- disruption of his normal routine and an unfamiliar environment may be more detrimental than helpful. I did urge his to purchase a walker. Will see how he gets around in the next tow days. He has to be able to toilet himself w/ one assist. Will need Home Health, PT and OT at Home if able to go home Discussed care with his Oksana. Raffy continues to make small improvements on a daily basis. Subjective Subjective Interval history since last seen: Raffy was able to sleep a bit more last night. Unfortunately he did have his adamson catheter placed back because of overflow incontinence. Per nursing they had to change his bedding 15 times yesterday. He is eating without pain, nausea or vomiting he denies any pain around his incision He is not confused this morning. He knew were he was and that I was his Doctor. Exam Const General: cooperative, comfortable and no acute distress Orientation: alert and oriented x3 HENMT Head: normocephalic and atraumatic Resp Effort & Inspection: normal respiratory effort Auscultation: clear to auscultation bilaterally Cardio Rate: regular rate Rhythm: regular rhythm Heart Sounds: no gallops, no murmurs and no rubs GI Inspection: normal to inspection Palpation: soft and no hepatosplenomegaly Auscultation: normal bowel sounds Other: SEVEN dressing intact and working appropriately ELFEGO with bloody drainage. No bile noted Objective Last Vital Signs Temp 98.1 F 01/30/20 09:12 Pulse 71 01/30/20 09:12 Resp 19 01/30/20 09:12 BP 195/96 H 01/30/20 09:12 Pulse Ox 94 01/30/20 09:12 Laboratory Results - last 24 hr 01/28/20 01/29/20 01/29/20 03:13 06:10 13:39 Sodium 139 Potassium 3.8 Chloride 106 Carbon Dioxide 23.7 Anion Gap 9.3 BUN 48 H Creatinine 3.46 H D Estimated GFR/1.73 m2 17.16 Glucose 84 Calcium 9.5 Magnesium 2.4 Creatine Kinase 47 Urine Color Yellow Urine Clarity Sl cloudy Urine pH 5.5 Ur Specific [place] 1.020 Urine Protein Negative Urine Ketones Negative Urine Blood Moderate H Urine Nitrite Negative Urine Bilirubin Negative Urine Urobilinogen 0.2 Ur Leukocyte Esterase Negative Urine RBC 20-50 H Urine WBC 0-2 Ur Epithelial Cells Rare Urine Crystals Few uric acid Urine Bacteria Rare Urine Casts Negative Urine Mucus Trace Ur Culture Indicated? No Urine Chloride 78 Urine Glucose Negative 01/29/20 01/30/20 16:12 06:20 Sodium 139 141 Potassium 3.9 3.7 Chloride 105 108 H Carbon Dioxide 26.8 25.3 Anion Gap 7.2 7.7 BUN 49 H 40 H D Creatinine 3.39 H 2.75 H Estimated GFR/1.73 m2 17.57 22.37 Glucose 115 H 100 Calcium 9.6 9.3 Magnesium 2.2 Creatine Kinase Urine Color Urine Clarity Urine pH Ur Specific [place] Urine Protein Urine Ketones Urine Blood Urine Nitrite Urine Bilirubin Urine Urobilinogen Ur Leukocyte Esterase Urine RBC Urine WBC Ur Epithelial Cells Urine Crystals Urine Bacteria Urine Casts Urine Mucus Ur Culture Indicated? Urine Chloride Urine Glucose
--- NOTE | 2020-01-30 11:29 | NUR.NOTE ---
Patient remains up in chair in no distress.Nursing Note:
--- NOTE | 2020-01-30 12:35 | PT.INTREAT ---
Date of service: 01/30/20 Time of Service: 11:40 PT Notes Visit Reasons: GANGRENOUS TREVIN Inpatient Physical Therapy Treatment Note [facility] Date: 01/30/2020 PRECAUTIONS: Fall, Standard and Activities to tolerance SUBJECTIVE: Would like to try stairs again today. OBJECTIVE: PAIN: Pain with adamson while sitting post ambulation and while performing seated exercises. Nursing staff informed of this issue. BED MOBILITY/TRANSFERS Up in chair with nursing staff. Sit-stand: SBA Stand-sit: SBA GAIT Assistive Device: FWW Weight bearing: Full Assist: CGA of one with nursing behind with w/c Distance: 250ft THEREX: After having BM and lunch he was able to perform ankle pumps 15 reps x 2 sets, LAQs for 10 reps x 2 sets, seated hip flexion and hip abd/adduction performed only 10 reps each due to again complaining of penis pain despite adamson being in non-stressed position. STAIRS: Up / down 2 6 inch and 3 4 inch steps with 2 hand rails and CGA. Step to gait pattern with verbal cueing. Patient indicated the Right LE is the stronger of his LEs. ASSESSMENT: Tolerated today's ambulation and stair training well, but due to having to have a BM held on seated ther ex until after lunch. Did express continued complaints of pain in the penis region while sitting in chair, decided to discontinue hip flexion and abduction as to avoid irritation in the region. PLAN: Continue with current POC with focus on improved functional mobility. TREATMENT CODE/TIME: 73484 x 2, (30') 11:40 to 12:00 and 12:50 to 1:00
--- NOTE | 2020-01-30 13:14 | NUR.NOTE ---
Nursing Note: Blood pressure much improved at 136/76. Patient up in chair feeling better and now talking to his and making sense.
[2020-01-30] MEDS: Normal Saline Flush 10 ML SYR IVP (13:49)
--- NOTE | 2020-01-30 13:51 | NUR.NOTE ---
Patient is sleeping up in chair. No needs identified.Nursing Note:
[2020-01-30] MEDS: Enoxaparin 30 MG/0.3 ML SYR SC (15:53)
[2020-01-30] MEDS: Acetaminophen 325 MG TAB 650 MG PO (20:03)
[2020-01-30] MEDS: Tamsulosin 0.4 MG CAPCR PO (21:11)
[2020-01-30] MEDS: Melatonin 3 MG TAB PO (21:11)
--- NOTE | 2020-01-30 22:45 | RT.EKG_ITS ---
APPROVED REPORT Exam: Resting ECG Patient Location: I HR:70 bpm ECG Measurements Heart Rate 70 AXIS CA 196 P 2 QRSd 104 QRS -26 QT 370 T 31 QTc 394 Conclusion Sinus rhythm...normal P axis, V-rate 60- 99 Atrial premature complexes...SV complexes w/ short R-R intvls Left ventricular hypertrophy...multiple voltage criteria Inferior infarct, old...Q >35mS, II III aVF
[2020-01-30 23:29] LABS: Abs Immature Grans 0.15 10^3/uL (0.0-0.06); Absolute Basophil Count 0.04 10^3/uL (0.0-0.2); Absolute Eosinophil Count 0.14 10^3/uL (0.0-0.7); Absolute Lymphocyte Count 0.92 10^3/uL (1.2-3.4); Absolute Monocyte Count 0.97 10^3/uL (0.1-0.8); Basophils % 0.6; HCT 31.4 % (40.0-50.0); HGB 10.3 g/dL (13.5-17.5); Immature Grans % 2.1; Lymphocytes % 12.9; MCH 28.1 pg (27.0-33.0); MCHC 32.8 % (32.0-36.0); MCV 85.6 fL (80-95); MPV 9.5 fL (8.0-11.0); Monocytes % 13.6; Neutrophils % 68.8; Nucleated RBC 0 %; Platelet Count 145 10^3/uL (130-400); RBC 3.67 10^6/uL (4.36-5.78); RDW 14.8 % (11.8-14.1); RDW-SD 45.6 fL; WBC 7.12 10^3/uL (4.4-10.8)
[2020-01-30 23:45] LABS: Anion Gap 7.5 mmol/L (3-11); BUN 30 mg/dL (7-18); CO2 25.5 mmol/L (21.0-32.0); CREATININE 1.65 mg/dL (0.70-1.30); Calcium 9.4 mg/dL (8.5-10.1); Chloride 107 mmol/L (98-107); Estimated GFR 40.34 (mL/min/1.73m2); Glucose 109 mg/dL (74-106); Potassium 3.6 mmol/L (3.5-5.1); Sodium 140 mmol/L (136-145)
[2020-01-30 23:48] LABS: Troponin I < 0.05 ng/mL (<0.06)
[2020-01-31] VITALS (45 sets, daily range): BP systolic 126–207; BP diastolic 67–145; PULSE 20–92; RESP 14–25; TEMP 36.2–36.4; O2SAT 90–97
[2020-01-31] MEDS: Metoprolol 5 MG/5 ML VIAL IVP (03:32)
[2020-01-31 04:32] LABS: C Diff PCR Positive (Negative)
--- NOTE | 2020-01-31 07:51 | OTIE_ITS ---
Occupational Therapy Notes Inpatient Occupational Therapy Evaluation Date: 01/31/20 Referring Doctor: Katiana Johnson MD OT Orders: Extended stay for weakness Precautions: Fall, Enteric, Full PATIENT PROFILE/ADMITTING DIAGNOSIS: Pt is admitted to the ICU via post op 01/24/20 with the following dx HTN urgency, urinary incontinence, s/p cholecys tectomy, anemia, bile leak post op, acute renal failure, DVT prophylaxis, low urine output, leukocytosis, choledocholithiasis with chronic cholecystitis, s/p ERCP, obesity, memory disturbance. Past Medical History: Medical History (Updated 01/12/20 @ 11:47 by Jennifer Rodriguez DO) Abdominal pain Benign hypertension (12/09/05) <140/85; BP was high at time of colonoscopy so Dr. Taylor started him on HCTZ 2005. High BP readings @ ophtho, urol . turns out to be 2' finesteride, Dr. Smallwood d/c'd .. will follow up in July 2018. 125/85 today, 2018, ik. 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 He noted that he has a tub shower which he states that he has 1 grab bar, he denies the need for a shower bench although OT does feel that this may be helpful. He states that he doesn't have an issue in the home setting. Equipment owned/DME: None SUBJECTIVE: Pt was sitting on the commode when OT arrived, he is agreeable to OT session and notes that he does not feel that he is having any issues and would like to go home. OBJECTIVE: General Observation: Telemetry, BP cuff, IV, adamson Mental Status: A&Ox3 Pain: no c/o pain ROM: RUE AROM WFL L UE AROM WFL STRENGTH: RUE 4-/5 throughout LUE 4-/5 throughout SENSATION: Pt was previously noting decreased sensation in (B) UE, he denies any issues at this time. FUNCTIONAL MOBILITY/ADLS: Pt denies all ADLs at todays session, he reports that he has performed some with nursing and is not interested in OT services, he just wants to go home. BALANCE: Static sitting Normal Dynamic Sitting Good SPECIAL TESTS: Daily Activity Limitations Standardized Measure [facility] AM -PAC ?6 clicks? Daily Activity Inpatient Short Form: Raw score: 20 Standardized score: 42.03 CMS score: 38.32% INFORMED CONSENT/EDUCATION: Pt instructed in purpose of OT Consult and plan of care. ASSESSMENT: Patient is a 79-year-old male referred to occupational therapy services with diagnosis of HTN urgency, urinary incontinence, s/p cholecystectomy, anemia, bile leak post op, acute renal failure, DVT prophylaxis, low urine output, leukocytosis, choledocholithiasis with chronic cholecystitis, s/p ERCP, obesity, memory disturbance . Patient presents with clinical signs and symptoms consistent with dx, as demonstrated by the following impairment level findings/functional limitations: Decreased functional activity tolerance, assessment of his LE dressing he needed max (A) donning his sock he states that this is related to his seated position but that he can perform this at baseline and now, decreased functional mobility required for ADLS. Pt denies any numbness or difficulty with his (B) UE, he denies any issues with his eating routines, or mobility of his UE. Based on pt denying the need for skilled OT services at this time, OT will plan to discharge pt from skilled OT services at this time. AMPAC score 20 Patient is assessed as a Low 60156 complexity based on the following: History: see above Examination: see functional limitations as noted above Presentation: evolving Decision Making: AMPAC score 20 GOALS N/a as pt denies need for further OT services reporting to OT that he is at his baseline level of function. PLAN OF CARE/TREATMENT PLAN: Discharge from OT services. DISCHARGE RECOMMENDATIONS OT was unable to get a good assessment of pts ADLs as he refused performance and need for further services stating that he just wants to go home. Based on this, OT does feel that pt would benefit from HH services for safety assessment in his home setting vs. SNF if his functional mobility is not at baseline which he will need to be functionally (I) in his ADL/IADL routines. TREATMENT TIME/MINUTES/CODES 96280, 20 minutes (09:00) Jennifer Cain OTR/L [facility]
--- NOTE | 2020-01-31 08:00 | W.PM.PROGNOT ---
Date of Service Date of service: 01/31/20 Time of Service: 08:00 Assessment and Plan Assessment and plan (1) Acute renal failure (ARF): Status: Acute Assessment and plan: holding TYSON and furosemide Morning Labs are PENDING Ng in place with clear, yellow urine Qualifiers: Acute renal failure type: unspecified Qualified Code(s): N17.9 - Acute kidney failure, unspecified (2) Choledocholithiasis with chronic cholecystitis: Status: Acute (3) S/P ERCP: Status: Acute Assessment and plan: NO stent was placed (4) Obesity, Class II, BMI 35-39.9, no comorbidity: Status: Chronic (5) Memory disturbance: Status: Chronic Assessment and plan: Confused at night time Alert and oriented this am. Speech is clear. (6) Hyperlipidemia: Status: Chronic Qualifiers: Hyperlipidemia type: unspecified Qualified Code(s): E78.5 - Hyperlipidemia, unspecified (7) Benign hypertension: Status: Chronic Assessment and plan: Hypertensive again last night Appreciate Dr. Maria assisting with his BP (8) BPH w/o urinary obs/LUTS: Status: Chronic Assessment and plan: Continue Flomax Ng in place (9) Bile leak, postoperative: Status: Acute Assessment and plan: Seems to have resolved. Most likely the bile was leaking from the raw liver surface. ELFEGO output now more bloody Will await for it to become for serous before removing it (10) Anemia due to blood loss, acute: Status: Acute Assessment and plan: Hgb slightly down, this may be all due to fluid overload Not symptomatic Continue to watch (11) S/P cholecystectomy: Status: Acute Assessment and plan: POD #7 doing OK following surgery no further arrhythmia will monitor fluid status and kidney function closely. Appreciate Dr. Maria assisting with this tolerating po's minimal pain Will need Home Health, PT and OT at Home if able to go home Discussed care with his Oksana. Raffy continues to make small improvements on a daily basis. Subjective Subjective Interval history since last seen: Patient reports feeling okay today. Expresses that he is eager to return home. Exam Const General: cooperative, healthy appearing and comfortable Orientation: alert and awake Resp Effort & Inspection: normal respiratory effort, no audible wheezes and no cough Skin Other: Jeimy dressing is in place for the RUQ incision site. Objective Last Vital Signs Temp 36.3 C L 12/20/20 15:34 Pulse 76 01/31/20 05:00 Resp 14 01/31/20 05:00 BP 126/82 01/31/20 05:00 Pulse Ox 98 01/30/20 15:34 Laboratory Results - last 24 hr 01/30/20 01/30/20 01/31/20 23:23 23:23 01:55 WBC 7.12 RBC 3.67 L Hgb 10.3 L Hct 31.4 L MCV 85.6 MCH 28.1 MCHC 32.8 RDW 14.8 H Plt Count 145 MPV 9.5 Immature Gran % 2.1 Neutrophils % 68.8 Lymphocytes % 12.9 Monocytes % 13.6 Eosinophils % 2.0 Basophils % 0.6 Nucleated RBC % 0 Absolute Neutrophils 4.90 Absolute Lymphocytes 0.92 L Absolute Monocytes 0.97 H Absolute Eosinophils 0.14 Absolute Basophils 0.04 Sodium 140 Potassium 3.6 Chloride 107 Carbon Dioxide 25.5 Anion Gap 7.5 BUN 30 H D Creatinine 1.65 H D Estimated GFR/1.73 m2 40.34 Glucose 109 H Calcium 9.4 Magnesium 2.0 Troponin I < 0.05 Stl C.difficile Tox PCR Positive A
--- NOTE | 2020-01-31 08:10 | PGE_ITS ---
Date of Service Date of service: 01/31/20 Time of Service: 14:51 Assessment and Plan Assessment and plan (1) C. difficile colitis: Status: Acute Assessment and plan: Agree with addition of PO vanco to metronidazole. I added questran and probiotics. (2) Acute renal failure (ARF): Status: Acute Assessment and plan: Cr better, but not yet at baseline. Especially given the diarrhea, will continue NS @75 cc/hr. Etiology of LALA is blood loss/intraop hypotension. S/p adamson - continue monitoring I/O's, daily weights. Avoiding nephrotoxins and hypotension. Us renal without abnormalities. Do not restart clint-i or lasix. Qualifiers: Acute renal failure type: unspecified Qualified Code(s): N17.9 - Acute kidney failure, unspecified (3) Hypertensive urgency: Status: Resolved Assessment and plan: BPs still labile, but appear to be doing better on c ombination of metoprolol 12.5 BID and norvasc 5 mg PO daily. Continue to monitor. Continue prn IV lopressor. (4) Encephalopathy acute: Status: Resolved Assessment and plan: vs undiagnosed cognitive deficit/early dementia. Hypertensive encephalopathy also a possibility. Mental status is back to baseline. It is suspected that the patient might have mild baseline dementia with sundowning which we've been seeing here. Continue to monitor mental status. (5) Urinary incontinence: Status: Acute Assessment and plan: S/p adamson for now. Will need a voiding trial once Cr normalized. (6) S/P cholecystectomy: Status: Acute Assessment and plan: Gangrenous cholecystitis, s/p open cholecystectomy, on augmentin. Progressing nicely. General surgery is not sure but is concerned about possible bile leak. Encourage IS. Defer post-op care to primary team. (7) Constipation: Status: Resolved Subjective Subjective Interval history since last seen: Numerous BMs overnight. CDiff positive. Diarrhea is now slowing down and the patient is feeling better. 19 sec of junctional vs BBB morphology overnight. Required 5 mg of metoprolol prn for BP. Not confused today. Denies dizziness, chest pain, shortness of breath, nausea. Exam Narrative Exam Narrative: General: Very pleasant obese male, sitting up in a chair, A&Ox3, much more appropriate today HEENT: EOMI, MMM Heart: RRR, no m/r/g Lungs: CTAB Abdomen:soft, incision dressed; ELFEGO drain with serosanguenous contents Extremities: +1 edema at B ankles, symmetric, unchanged from yesterday Objective Last Vital Signs Temp 36.3 C L 01/30/20 15:34 Pulse 76 01/31/20 05:00 Resp 14 01/31/20 05:00 BP 126/82 01/31/20 05:00 Pulse Ox 98 01/30/20 15:34 Laboratory Results - last 24 hr 01/30/20 01/30/20 01/31/20 23:23 23:23 01:55 WBC 7.12 RBC 3.67 L Hgb 10.3 L Hct 31.4 L MCV 85.6 MCH 28.1 MCHC 32.8 RDW 14.8 H Plt Count 145 MPV 9.5 Immature Gran % 2.1 Neutrophils % 68.8 Lymphocytes % 12.9 Monocytes % 13.6 Eosinophils % 2.0 Basophils % 0.6 Nucleated RBC % 0 Absolute Neutrophils 4.90 Absolute Lymphocytes 0.92 L Absolute Monocytes 0.97 H Absolute Eosinophils 0.14 Absolute Basophils 0.04 Sodium 140 Potassium 3.6 Chloride 107 Carbon Dioxide 25.5 Anion Gap 7.5 BUN 30 H D Creatinine 1.65 H D Estimated GFR/1.73 m2 40.34 Glucose 109 H Calcium 9.4 Magnesium 2.0 Troponin I < 0.05 Stl C.difficile Tox PCR Positive A
[2020-01-31] MEDS: amLODIPine 5 MG TAB PO (08:38)
[2020-01-31] MEDS: Amoxicillin 500/Clav. 125 TAB PO (08:39)
[2020-01-31] MEDS: metroNIDAZOLE 500 MG TAB PO ×3 (08:39→19:19)
[2020-01-31] MEDS: Metoprolol 12.5 MG TAB PO ×2 (08:39→20:25)
[2020-01-31 09:13] LABS: Abs Immature Grans 0.13 10^3/uL (0.0-0.06); Absolute Basophil Count 0.04 10^3/uL (0.0-0.2); Absolute Eosinophil Count 0.14 10^3/uL (0.0-0.7); Absolute Lymphocyte Count 0.89 10^3/uL (1.2-3.4); Absolute Monocyte Count 0.68 10^3/uL (0.1-0.8); Basophils % 0.6; Eosinophils % 2.2; HCT 33.8 % (40.0-50.0); HGB 11.1 g/dL (13.5-17.5); Lymphocytes % 13.9; MCH 27.9 pg (27.0-33.0); MCHC 32.8 % (32.0-36.0); MCV 84.9 fL (80-95); MPV 9.5 fL (8.0-11.0); Monocytes % 10.7; Neutrophils % 70.6; Nucleated RBC 0 %; Platelet Count 162 10^3/uL (130-400); RBC 3.98 10^6/uL (4.36-5.78); RDW 14.9 % (11.8-14.1); WBC 6.38 10^3/uL (4.4-10.8)
[2020-01-31 09:24] LABS: Anion Gap 7.1 mmol/L (3-11); BUN 25 mg/dL (7-18); CO2 26.9 mmol/L (21.0-32.0); CREATININE 1.32 mg/dL (0.70-1.30); Calcium 9.8 mg/dL (8.5-10.1); Chloride 107 mmol/L (98-107); Estimated GFR 52.19 (mL/min/1.73m2); Glucose 100 mg/dL (74-106); Potassium 3.6 mmol/L (3.5-5.1); Sodium 141 mmol/L (136-145); Troponin I < 0.05 ng/mL (<0.06)
[2020-01-31] MEDS: Normal Saline Flush 10 ML SYR IVP (09:30)
--- NOTE | 2020-01-31 09:40 | NUR.NOTE ---
Occupational therapist works with patient.Nursing Note:
[2020-01-31] MEDS: Cholestyramine/Aspartame PKT 1 EACH PO ×2 (09:48→19:18)
[2020-01-31] MEDS: Nystatin POWDER 15 GM JAR TP ×2 (09:50→14:27)
--- NOTE | 2020-01-31 10:16 | PDOC.CMPRO ---
- If Service Date Differs Date of service: 01/31/20 Time of Service: 10:16 Care Management Progress Note S/O: Raffy was seen by CM when he was ambulating in the hallway with PT and again in his room in the afternoon. Per PT, he is doing very well with ambulation. He is slow, but makes steady progress. Mentally, Raffy is much clearer and remembered CM from previous encounters. Raffy expressed a desire to be able to go home soon. Reportedly, Dr. Johnson told his that he can likely be discharged on Friday. 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 Raffy remains hypertensive and his antihypertensive medications have been adjusted. Raffy has also developed C. difficile colitis and requires antibiotics for that as well as isolation precautions. Fortunately, his renal function is improving; his creatinine was 1.32 today compared to a high of 4.75 on 01/28/20. CM will continue to follow. A: Raffy is an 79 year old man admitted on 01/24/20 with a gangrenous gallbladder P: Raffy is likely to be discharged home with new [facility] services for RN and PT, OT, he has a FWW at home-undetermined if Ng will remain upon discharge. Referral sent to [facility] at his request with the hope that it will not be necessary, anticipate he will return home at this time. Raffy will follow up with his surgeon, PCP and plan of care. CM will continue to support Raffy and his family and assess for ongoing discharge concern cc:
[2020-01-31] MEDS: Vancomycin 125 MG CAP PO ×3 (10:18→20:25)
--- NOTE | 2020-01-31 11:44 | NUR.NOTE ---
Abilio cream applied to buttocks.Nursing Note:
--- NOTE | 2020-01-31 12:13 | PT.INTREAT ---
Date of service: 01/31/20 Time of Service: 11:40 PT Notes Visit Reasons: GANGRENOUS TREVIN Inpatient Physical Therapy Treatment Note [facility] Date: 01/31/2020 PRECAUTIONS: Fall SUBJECTIVE: Raffy reports that he is feeling much better today. He hopes to be discharged to home soon. OBJECTIVE: PAIN: No complaints of pain BED MOBILITY/TRANSFERS Sit-stand: S Stand-sit: S GAIT Assistive Device: FWW Weight bearing: Full Assist: SBA Distance: 350' in a.m.; 500' in p.m. Deviation: Cueing required for FWW mechanics THEREX: Patient was instructed in a global strengthening program, while in standing position, as per flow sheet. Patient requires occasional verbal and visual cueing for proper exercise performance. STAIRS: Up/down 3x4 and 2x6 using B rails and a step to pattern with SBA ASSESSMENT: Patient tolerated session without complaint. He continues to require cueing for FWW mechanics for safety and improved posture. He would benefit from continued global strengthening as well as continued transfer and gait training for improved mobility. PLAN: Continue with global strengthening, transfers and gait training for improved mobility TREATMENT CODE/TIME: Session 1: 25 minutes; 57120 x2 Section 2: 25 minutes; 31972, [id number]
--- NOTE | 2020-01-31 12:20 | NUR.NOTE ---
Patient talking to his . RN speaks with . Patient sleeps in a recliner at home. advised by RN to get a commode since patient has been diagnosed with C-Diff.Nursing Note:
--- NOTE | 2020-01-31 15:38 | PGE_ITS ---
Date of Service Date of service: 01/31/20 Time of Service: 15:39 Assessment and Plan Assessment and plan (1) C. difficile colitis: Status: Acute Assessment and plan: vanco and probiotics for 2 wks (2) Hypertensive urgency: Status: Resolved (3) S/P cholecystectomy: Status: Acute Assessment and plan: POD#7 doing much better. Up walking and able to transfer himself. tolerating reglar diet only using tylenol for pain prob d/c home tomorrow shouldn't require abx for cholecystitis, just Tx for C diff. will leave d/c orders. pt will need home PT & walker. d/w machine adjuster leader case trim transfer to F (4) Anemia due to blood loss, acute: Status: Acute Assessment and plan: rapidly improving (5) Bile leak, postoperative: Status: Acute Assessment and plan: resolved will pull drain in am (6) Acute renal failure (ARF): Status: Acute Assessment and plan: resolved Qualifiers: Acute renal failure type: unspecified Qualified Code(s): N17.9 - Acute kidney failure, unspecified Subjective Subjective Interval history since last seen: Pt is doing better. Pt has had about 3-4 BM today- more on the formed side. He has only had 10cc sero-sang drainage out in the last 24 hrs. no headaches. No CP or SOB. no productive cough. no dysuria. no leg pain or swelling. He has been much stronger and able to get himself out of the chair and transfer to bed. No bile drainage from drain. Exam Resp Effort & Inspection: normal respiratory effort and able to speak in complete sentences Auscultation: clear to auscultation bilaterally and diminished lung sounds (at the bases ) bilaterally GI Palpation: soft Other: good BS. incision c/d/i. min drainage from ELFEGO- sero-sang. Extrem General: no pedal edema Objective Last Vital Signs Temp 36.4 C L 01/31/20 13:59 Pulse 85 01/31/20 14:01 Resp 20 01/31/20 14:01 BP 137/79 01/31/20 14:01 Pulse Ox 97 01/31/20 14:00 Laboratory Results - last 24 hr 01/30/20 01/30/20 01/31/20 23:23 23:23 01:55 WBC 7.12 RBC 3.67 L Hgb 10.3 L Hct 31.4 L MCV 85.6 MCH 28.1 MCHC 32.8 RDW 14.8 H Plt Count 145 MPV 9.5 Immature Gran % 2.1 Neutrophils % 68.8 Lymphocytes % 12.9 Monocytes % 13.6 Eosinophils % 2.0 Basophils % 0.6 Nucleated RBC % 0 Absolute Neutrophils 4.90 Absolute Lymphocytes 0.92 L Absolute Monocytes 0.97 H Absolute Eosinophils 0.14 Absolute Basophils 0.04 Sodium 140 Potassium 3.6 Chloride 107 Carbon Dioxide 25.5 Anion Gap 7.5 BUN 30 H D Creatinine 1.65 H D Estimated GFR/1.73 m2 40.34 Glucose 109 H Calcium 9.4 Magnesium 2.0 Troponin I < 0.05 Stl C.difficile Tox PCR Positive A 01/31/20 01/31/20 08:55 08:55 WBC 6.38 RBC 3.98 L Hgb 11.1 L Hct 33.8 L MCV 84.9 MCH 27.9 MCHC 32.8 RDW 14.9 H Plt Count 162 MPV 9.5 Immature Gran % 2.0 Neutrophils % 70.6 Lymphocytes % 13.9 Monocytes % 10.7 Eosinophils % 2.2 Basophils % 0.6 Nucleated RBC % 0 Absolute Neutrophils 4.50 Absolute Lymphocytes 0.89 L Absolute Monocytes 0.68 Absolute Eosinophils 0.14 Absolute Basophils 0.04 Sodium 141 Potassium 3.6 Chloride 107 Carbon Dioxide 26.9 Anion Gap 7.1 BUN 25 H Creatinine 1.32 H Estimated GFR/1.73 m2 52.19 Glucose 100 Calcium 9.8 Magnesium 2.0 Troponin I < 0.05 Stl C.difficile Tox PCR
--- NOTE | 2020-01-31 15:54 | DSE_ITS ---
Documented by User: Jennifer Rodriguez DO 02/08/20 14:09 Date of service: 02/01/20 Time of Service: 15:54 DS: Diagnosis Discharge Diagnosis (1) C. difficile colitis: Status: Acute (2) Hypertensive urgency: Status: Resolved (3) S/P cholecystectomy: Status: Acute (4) Anemia due to blood loss, acute: Status: Acute (5) Bile leak, postoperative: Status: Deleted (6) Acute renal failure (ARF): Status: Acute DS: Data Vitals/I&O Vitals and I&O: Vital Signs Temperature 36.4 C L 01/31/20 13:59 Temperature Source Temporal Artery Scan 01/31/20 13:59 Pulse 85 01/31/20 14:01 Pulse Rhythm Regular 01/24/20 08:25 Pulse 88 01/31/20 14:01 Respiratory Rate 20 01/31/20 14:01 Respiratory Effort Non-Labored 01/31/20 13:59 Respiratory Depth Normal 01/31/20 13:59 Respiratory Pattern Normal 01/31/20 13:59 Blood Pressure 137/79 01/31/20 14:01 Blood Pressure Mean 92 01/31/20 14:01 Blood Pressure Position Sitting 01/31/20 13:59 Pulse Oximetry 97 01/31/20 14:00 Oxygen Delivery Method Room Air 01/31/20 13:59 Oxygen Flow Rate 0 01/31/20 13:59 Pain Level 0 01/31/20 13:59 Comment 01/30/20 07:42 Intake & Output 01/30/20 01/31/20 01/31/20 23:59 11:59 23:59 Intake Total 1999 360 / 1080 720 / 1080 Output Total 2044 / 3665 1880 / 1890 1889 Balance -45 / -515 -1520 / -810 710 / -810 Weight 109.5 kg Intake: IV 2000 / 3000 Oral 0 / 120 360 / 1080 720 / 1080 Output: Drainage 40 30 / 40 10 / 40 Abdomen / 40 30 / 40 10 / 40 Urine 1350 / 2750 1750 / 1750 Stool 675 / 875 100 / 100 Other: Urine Color [place] Yellow Urine Appearance [place] Cloudy Urine Odor None None Comment Catheter secured to patients leg at this time. Cloudy yellow urine Cloudy yellow urine via adamson catheter in sufficient amounts. Stool Occult Blood Negative Stool Size Small Small Stool Characteristics Soft Soft Brown Data Completed and Pending Labs on day of discharge: Labs from last 24 hours 01/31/20 01/31/20 01/31/20 08:55 08:55 01:55 WBC 6.38 RBC 3.98 L Hgb 11.1 L Hct 33.8 L MCV 84.9 MCH 27.9 MCHC 32.8 RDW 14.9 H Plt Count 162 MPV 9.5 Immature Gran % 2.0 Neutrophils % 70.6 Lymphocytes % 13.9 Monocytes % 10.7 Eosinophils % 2.2 Basophils % 0.6 Nucleated RBC % 0 Absolute Neutrophils 4.50 Absolute Lymphocytes 0.89 L Absolute Monocytes 0.68 Absolute Eosinophils 0.14 Absolute Basophils 0.04 Sodium 141 Potassium 3.6 Chloride 107 Carbon Dioxide 26.9 Anion Gap 7.1 BUN 25 H Creatinine 1.32 H Estimated GFR/1.73 m2 52.19 Glucose 100 Calcium 9.8 Magnesium 2.0 Troponin I < 0.05 Stl C.difficile Tox PCR Positive A 01/30/20 01/30/20 23:23 23:23 WBC 7.12 RBC 3.67 L Hgb 10.3 L Hct 31.4 L MCV 85.6 MCH 28.1 MCHC 32.8 RDW 14.8 H Plt Count 145 MPV 9.5 Immature Gran % 2.1 Neutrophils % 68.8 Lymphocytes % 12.9 Monocytes % 13.6 Eosinophils % 2.0 Basophils % 0.6 Nucleated RBC % 0 Absolute Neutrophils 4.90 Absolute Lymphocytes 0.92 L Absolute Monocytes 0.97 H Absolute Eosinophils 0.14 Absolute Basophils 0.04 Sodium 140 Potassium 3.6 Chloride 107 Carbon Dioxide 25.5 Anion Gap 7.5 BUN 30 H D Creatinine 1.65 H D Estimated GFR/1.73 m2 40.34 Glucose 109 H Calcium 9.4 Magnesium 2.0 Troponin I < 0.05 Stl C.difficile Tox PCR [facility] Medical History (Updated 02/08/20 @ 13:44 by Jennifer Rodriguez DO) Abdominal pain Anemia due to blood loss, acute Benign hypertension (12/09/05) <140/85; BP was high at time of colonoscopy so Dr. Taylor started him on HCTZ 2005. High BP readings @ ophtho, urol . turns out to be 2' finesteride, Dr. Smallwood d/c'd .. will follow up in July 2018. 125/85 today, 06/2018, ik. 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 [employer] Current gender identity: male What type of physical activity do you participate in: none Working smoke detector in home: Yes Fire extinguisher in home: Yes Carbon monox detector in home: Yes Do you feel safe at home: Yes Do you feel safe in your relationship?: Yes Documented by User: Katiana Johnson MD 02/01/20 10:36 Date of service: 02/01/20 Time of Service: 10:26 DS: Diagnosis Discharge Diagnosis (1) Cardiac arrhythmia: Status: Acute DS: Summary Status at Discharge Functional status at discharge: uses cane/walker Overall status at discharge: patient is progressing back to baseline Mental Status: mental status grossly normal Speech and Movement: speech and movement normal Mood: congruent mood Affect: normal affect Time Spent with Patient providing and/or coordinating discharge services: Greater than 30 minutes Exam Const General: cooperative, comfortable and no acute distress Orientation: alert and oriented x3 HENMT Head: normocephalic and atraumatic Resp Effort & Inspection: normal respiratory effort Auscultation: clear to auscultation bilaterally Cardio Rate: regular rate Rhythm: regular rhythm GI Palpation: soft, no hepatosplenomegaly and nontender Psych Mental Status: mental status grossly normal Speech and Movement: speech and movement normal Mood: congruent mood Affect: normal affect [facility] Medical History (Updated 02/08/20 @ 13:44 by Jennifer Rodriguez DO) Abdominal pain Anemia due to blood loss, acute Benign hypertension (12/09/05) <140/85; BP was high at time of colonoscopy so Dr. Taylor started him on HCTZ 2005. High BP readings @ ophtho, urol . turns out to be 2' finesteride, Dr. Smallwood d/c'd .. will follow up in July 2018. 125/85 today, 06/2018, ik. 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
[2020-01-31] MEDS: Enoxaparin 30 MG/0.3 ML SYR SC (16:41)
[2020-01-31] MEDS: Normal Saline 1,000 ML 75 ML IV ×2 (17:23→17:32)
[2020-01-31] MEDS: Melatonin 3 MG TAB PO (20:25)
[2020-01-31] MEDS: Tamsulosin 0.4 MG CAPCR PO (20:26)
[2020-02-01] VITALS: BP 176/78; PULSE 75; RESP 18; TEMP 36.5
[2020-02-01 00:22] VITALS: BP 186/78; PULSE 79
[2020-02-01] MEDS: Vancomycin 125 MG CAP PO ×2 (04:00→10:29)
[2020-02-01 06:55] LABS: Abs Immature Grans 0.17 10^3/uL (0.0-0.06); Absolute Basophil Count 0.03 10^3/uL (0.0-0.2); Absolute Eosinophil Count 0.17 10^3/uL (0.0-0.7); Absolute Lymphocyte Count 1.24 10^3/uL (1.2-3.4); Absolute Monocyte Count 0.75 10^3/uL (0.1-0.8); Absolute Neutrophil Count 5.13 10^3/uL (1.2-6.7); Basophils % 0.4; Eosinophils % 2.3; HCT 30.5 % (40.0-50.0); Immature Grans % 2.3; Lymphocytes % 16.6; MCH 28.1 pg (27.0-33.0); MCHC 32.8 % (32.0-36.0); MCV 85.7 fL (80-95); MPV 9.6 fL (8.0-11.0); Neutrophils % 68.4; Nucleated RBC 0 %; Platelet Count 174 10^3/uL (130-400); RBC 3.56 10^6/uL (4.36-5.78); RDW 14.7 % (11.8-14.1); RDW-SD 46.3 fL; WBC 7.49 10^3/uL (4.4-10.8)
[2020-02-01 07:06] LABS: Anion Gap 10.2 mmol/L (3-11); BUN 18 mg/dL (7-18); CO2 24.8 mmol/L (21.0-32.0); CREATININE 1.13 mg/dL (0.70-1.30); Calcium 8.9 mg/dL (8.5-10.1); Chloride 104 mmol/L (98-107); Glucose 104 mg/dL (74-106); Magnesium 1.5 mg/dL (1.8-2.4); Potassium 3.4 mmol/L (3.5-5.1); Sodium 139 mmol/L (136-145)
[2020-02-01 07:57] VITALS: BP 194/86; PULSE 71; PULSE 73; RESP 20; O2SAT 93
[2020-02-01 07:58] VITALS: TEMP 36.5
[2020-02-01] MEDS: Metoprolol 12.5 MG TAB PO (08:00)
[2020-02-01] MEDS: metroNIDAZOLE 500 MG TAB PO ×2 (08:00→13:15)
[2020-02-01] MEDS: amLODIPine 5 MG TAB PO (08:01)
[2020-02-01] MEDS: Famotidine 20 MG TAB PO (08:01)
[2020-02-01] MEDS: Nystatin POWDER 15 GM JAR TP (08:05)
--- NOTE | 2020-02-01 08:20 | W.PM.PROGNOT ---
Date of Service Date of service: 02/01/20 Time of Service: 12:52 Subjective Subjective Interval history since last seen: Afebrile, just got morning meds (SBP 192/90); Did not require IV metoprolol overnight. No arrhythmias on monitor. Crackles in R base. Last BM yesterday, diarrhea slowed down. ELFEGO drain 30 cc/17 hrs, serosanguenous. LE edema. Discussed with general surgery - patient is being discharged today. He should go home on lopressor 12.5 mg PO BID and norvasc 5 mg PO daily. He should not be resumed on lasix or clint-i until follow up with PCP. He is stable for d/c from the hospitalists' stand point. Thank you for this consult. Objective Last Vital Signs Temp 36.5 C 02/01/20 07:58 Pulse 71 02/01/20 07:57 Resp 20 02/01/20 07:57 BP 194/86 H 02/01/20 07:57 Pulse Ox 93 02/01/20 07:57 Laboratory Results - last 24 hr 01/31/20 01/31/20 02/01/20 08:55 08:55 06:30 WBC 6.38 RBC 3.98 L Hgb 11.1 L Hct 33.8 L MCV 84.9 MCH 27.9 MCHC 32.8 RDW 14.9 H Plt Count 162 MPV 9.5 Immature Gran % 2.0 Neutrophils % 70.6 Lymphocytes % 13.9 Monocytes % 10.7 Eosinophils % 2.2 Basophils % 0.6 Nucleated RBC % 0 Absolute Neutrophils 4.50 Absolute Lymphocytes 0.89 L Absolute Monocytes 0.68 Absolute Eosinophils 0.14 Absolute Basophils 0.04 Sodium 141 139 Potassium 3.6 3.4 L Chloride 107 104 Carbon Dioxide 26.9 24.8 Anion Gap 7.1 10.2 BUN 25 H 18 D Creatinine 1.32 H 1.13 Estimated GFR/1.73 m2 52.19 >= 60.00 Glucose 100 104 Calcium 9.8 8.9 Magnesium 2.0 1.5 L Troponin I < 0.05 02/01/20 06:30 WBC 7.49 RBC 3.56 L Hgb 10.0 L Hct 30.5 L MCV 85.7 MCH 28.1 MCHC 32.8 RDW 14.7 H Plt Count 174 MPV 9.6 Immature Gran % 2.3 Neutrophils % 68.4 Lymphocytes % 16.6 Monocytes % 10.0 Eosinophils % 2.3 Basophils % 0.4 Nucleated RBC % 0 Absolute Neutrophils 5.13 Absolute Lymphocytes 1.24 Absolute Monocytes 0.75 Absolute Eosinophils 0.17 Absolute Basophils 0.03 Sodium Potassium Chloride Carbon Dioxide Anion Gap BUN Creatinine Estimated GFR/1.73 m2 Glucose Calcium Magnesium Troponin I
[2020-02-01] MEDS: POTASSIUM CHLORIDE 20 MEQ/100 ML BAG 50 MEQ IVPB ×2 (08:54→10:52)
[2020-02-01] MEDS: MAGNESIUM SULFATE 4 GM/100 ML BAG IVPB (08:55)
[2020-02-01] MEDS: Normal Saline 500 ML 30 ML IV (08:55)
--- NOTE | 2020-02-01 09:03 | W.NUTRFU ---
Date of service: 02/01/20 Time of Service: 09:03 Nutritional Follow up NOTE: Pt following soft post op diet with adequate intake. Meeting nutrient/fluid needs at this time. Probiotics ordered for C Diff. Will continue to follow. Time Spent in Nutritional Counseling and Treatment: 0
--- NOTE | 2020-02-01 09:21 | PGE_ITS ---
Documented by User: EMILIE Osborne 02/01/20 09:24 Date of Service Date of service: 02/01/20 Time of Service: 09:21 Assessment and Plan Assessment and plan (1) C. difficile colitis: Status: Acute Assessment and plan: vanco and probiotics for 2 wks (2) Hypertensive urgency: Status: Resolved (3) S/P cholecystectomy: Status: Acute Assessment and plan: POD#8 doing much better. Up walking and able to transfer himself. tolerating regular diet only using tylenol for pain shouldn't require abx for cholecystitis, just Tx for C diff. will leave d/c orders. pt will need home PT. His has already purchased a walker. d/w skilled nursing case manager (4) Anemia due to blood loss, acute: Status: Acute Assessment and plan: rapidly improving (5) Bile leak, postoperative: Status: Acute Assessment and plan: resolved will pull drain in am (6) Acute renal failure (ARF): Status: Acute Assessment and plan: resolved Qualifiers: Acute renal failure type: unspecified Qualified Code(s): N17.9 - Acute kidney failure, unspecified Subjective Subjective Interval history since last seen: Patient is feeling well this morning and is extremely excited about going home today. Denies any pain at this time. Per nsg, he has not had any BMs since yesterday. Exam Const General: cooperative, healthy appearing and comfortable Orientation: alert and oriented x3 Resp Effort & Inspection: normal respiratory effort, no audible wheezes and no cough Objective Last Vital Signs Temp 36.5 C 02/01/20 07:58 Pulse 71 02/01/20 07:57 Resp 20 02/01/20 07:57 BP 194/86 H 02/01/20 07:57 Pulse Ox 93 02/01/20 07:57 Laboratory Results - last 24 hr 01/31/20 02/01/20 02/01/20 08:55 06:30 06:30 WBC 7.49 RBC 3.56 L Hgb 10.0 L Hct 30.5 L MCV 85.7 MCH 28.1 MCHC 32.8 RDW 14.7 H Plt Count 174 MPV 9.6 Immature Gran % 2.3 Neutrophils % 68.4 Lymphocytes % 16.6 Monocytes % 10.0 Eosinophils % 2.3 Basophils % 0.4 Nucleated RBC % 0 Absolute Neutrophils 5.13 Absolute Lymphocytes 1.24 Absolute Monocytes 0.75 Absolute Eosinophils 0.17 Absolute Basophils 0.03 Sodium 141 139 Potassium 3.6 3.4 L Chloride 107 104 Carbon Dioxide 26.9 24.8 Anion Gap 7.1 10.2 BUN 25 H 18 D Creatinine 1.32 H 1.13 Estimated GFR/1.73 m2 52.19 >= 60.00 Glucose 100 104 Calcium 9.8 8.9 Magnesium 2.0 1.5 L Troponin I < 0.05 Documented by User: Katiana Johnson MD 02/01/20 10:25
[2020-02-01] MEDS: Cholestyramine/Aspartame PKT 1 EACH PO (10:29)
--- NOTE | 2020-02-01 10:36 | PDOC.HHF2F ---
Home Health Certification Home Health Certification: 1. Encounter Date and Reason I certify that ALINA CALERO was seen by Katiana Johnson MD on 02/01/20 and that I had a [id number] encounter with this patient that meets the physician face to face encounter requirements. 2. Clinical Findings Supporting Skilled Need and Homebound Status I certify that home health services are medically necessary, include either intermittent long-term and/or physical/speech therapy, and that this patient is homebound in that absences from the home require considerable and taxing effort and are infrequent or of short duration, or are attributable to the need to receive medical care. [X] (a) Attached documentation from encounter provides clinical findings supporting skilled need and homebound status (including what assistance patient requires to leave the home). The encounter with the patient was in whole, or in part, for the following medical condition, which is the primary reason for home health care: GANGRENOUS TREVIN Nursing Home: intermediate needed to monitor patients condition, instruct on new medication regimen and signs and symptoms to report. Patient is at risk of decompensation and/or adverse events due to recent hospitalization and surgery. Physical Therapy: Physical therapy needed to restore the patients ability to ambulate independently and safely and to increase strength and endurance following the patients hospital stay Speech Therapy: Homebound: Patient is unable to leave home without assistance and ambulationis limited due to decreased strength and endurance. 3. Certification and Authentication I certify that I composed the above information based on my clinical judgement relating to this patient's medical condition and, if applicable, clinical findings communicated to me by the NPP or inpatient physician who performed the Home Health Referral. All further orders will be obtained through Dr. Rodriguez (Community Based Physician - PCP)
--- NOTE | 2020-02-01 10:47 | PT.INTREAT ---
Date of service: 02/01/20 Time of Service: 10:15 PT Notes Visit Reasons: GANGRENOUS TREVIN Inpatient Physical Therapy Treatment Note [facility] Date: 02/01/2020 PRECAUTIONS: Fall SUBJECTIVE: Rfafy is very excited to be going home today. He is pleasant and agreeable to participating in PT. OBJECTIVE: PAIN: No complaints of pain BED MOBILITY/TRANSFERS Sit-stand: I Stand-sit: I GAIT Assistive Device: FWW Weight bearing: Full Assist: S Distance: 500' Deviation: No cueing needed ASSESSMENT: Patient tolerated session without complaint. He continues to demonstrate need for FWW support with ambulation for safety, however, demonstrates improved FWW mechanics. PLAN: Patient to d/c to home later today, follow up with PT for continued strengthening and gait training for continued progression toward baseline level of function. TREATMENT CODE/TIME: 20 minutes; [id number]
[2020-02-01 11:07] VITALS: TEMP 36.3
[2020-02-01 11:08] VITALS: BP 141/75; PULSE 73; PULSE 75; RESP 24
--- NOTE | 2020-02-01 14:20 | CMDISCH_ITS ---
- If Service Date Differs Date of service: 02/01/20 Time of Service: 14:20 LACE Index Scoring Tool - Questions: Length of Stay (in days): 7 - 13 Acuity (Admit via E.D.?): No E.D. Visits: 2 - Answers: Total Score: 7 Risk of Readmission: Low Risk Care Management Discharge Reason for Hospitalization: gangrenous gallbladder Discharge Plan: Raffy will be discharged home with new [facility] services for RN, PT, OT, and REPAIRER SHOE STICKS. He has a FWW at home as well as a commode. Raffy will follow up with his surgeon, PCP and plan of care and transport with his . Patient/Family Education Needs: Discharge plan, limitations, follow up plan, Ask Me Three. Services Needed at Discharge: Home Health Care Services, Physical Therapy
--- NOTE | 2020-02-01 16:40 | INDS_ITS ---
Date of service: 02/01/20 Time of Service: 16:40 PT Notes Visit Reasons: GANGRENOUS TREVIN Physical Therapy Inpatient Initial Evaluation Date: 02/01/2020 Date of service: 01/26/2020 through 02/01/2020 This is a clinical summary of care provided on the duration of dates listed above. No charge was made in the completion of this documentation. Referring Doctor: Katiana Johnson MD PT Orders: PT CONSULT: Limited ability Precautions: Fall. Standard. Activity as tolerated. Patient Profile/Admitting Diagnosis: Raffy is an 79-year-old male with choledocholethiasis with chronic cholecystitis and is status post laparoscopic cholecystectomy on postoperative day 2. PMHX: Medical History (Updated 01/12/20 @ 11:47 by Jennifer Rodriguez DO) Abdominal pain Benign hypertension (12/09/05) <140/85; BP was high at time of colonoscopy so Dr. Taylor started him on HCTZ 2005. High BP readings @ ophtho, urol . turns out to be 2' finesteride, Dr. Smallwood d/c'd .. will follow up in July 2018. 125/85 today, 2018, ik. 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 Unable to extract more information as patient seems to be acutely confused. Equipment Owned/DME: None Subjective: NT. See most recent COLLECTION DEVELOPMENT LIBRARIAN notes. Objective: General Observation: NT. See most recent COLLECTION DEVELOPMENT LIBRARIAN notes. Mental Status: NT. See most recent COLLECTION DEVELOPMENT LIBRARIAN notes. Pain: NT. See most recent COLLECTION DEVELOPMENT LIBRARIAN notes. ROM: Right Upper Extremity: Shoulder Flexion WFL. Shoulder abduction WFL. Elbow flexion WFL. Wrist flexion WFL. Functional opening and closing of hand WFL. Left Upper Extremity: Shoulder Flexion WFL. Shoulder abduction WFL. Elbow flexion WFL. Wrist flexion WFL. Functional opening and closing of hand WFL. Right Lower Extremity: Hip flexion WFL. Hip abduction WFL. Knee flexion WFL. Ankle dorsiflexion WFL. Ankle plantarflexion WFL. Left Lower Extremity: Hip flexion WFL. Hip abduction WFL. Knee flexion WFL. Ankle dorsiflexion WFL. Ankle plantarflexion WFL. Strength: Right Upper Extremity: Shoulder flexors 4/5. Shoulder abductors 4/5. Elbow flexors 4/5. Elbow extensors 4/5. Body And Fender Worker strong. Left Upper Extremity: Shoulder flexors 4/5. Shoulder abductors 4/5. Elbow fle xors 4/5. Elbow extensors 4/5. Body And Fender Worker strong. Right Lower Extremity: Hip flexors 4-/5. Hip abductors 4-/5. Knee flexors 4/5. Knee extensors 4/5. Ankle dorsiflexors 4/5. Ankle plantarflexors 4/5. Left Lower Extremity: Hip flexors 4-/5. Hip abductors 4-/5. Knee flexors 4/5. Knee extensors 4/5. Ankle dorsiflexors 4/5. Ankle plantarflexors 4/5. Bed Mobility/Transfers: Rolling independent Supine to sit independent Sit to supine independent Sit to stand independent Stand to sit independent Bed to chair independent Chair to bed independent Gait: Up to 500 feet of level surface ambulation using front wheeled walker with full weightbearing requiring only supervision assist with much improved gait mechanics in terms of step height, step length, and peña. Tolerates down three 4 inch steps and two 6 inch steps while holding onto bilateral rails with step to gait pattern requiring standby assist. Balance: Static Sitting: Normal Dynamic Sitting: Normal Static Standing: Fair Dynamic Standing: Fair Assessment: Raffy demonstrates improvement in functional mobility performance with physical therapy services during this episode of care as evidenced by goal status below and mobility level above. He will continue to benefit from home health PT services in order to progress mobility level and decrease burden of care while reducing fall risk at home. Patient continues to present with clinical signs and symptoms consistent with current/admitting diagnoses that have resulted to mobility limitations, gait instability, generalized weakness, and impairment of motor control as demonstrated by the following impairment level findings: 1. Decreased strength to BUE UE/LE major muscle groups 2. Impaired standing balance 3. Impaired activity tolerance Impairments are continuing to contribute to the following functional limitations: 1. Inability to safely ambulate without assistive device and physical assistance 2. Increase completion time for mobility ADL performance 3. Increased fall risk 4. Inability to negotiate steps alone safely Goals: Goals X1 week 1. Supine-Sit contact-guard assist MET 2. Sit-Supine contact-guard assist MET 3. Sit-Stand SBA MET 4. Stand-Sit SBA MET 5. Bed-Chair SBA MET 6. Chair-Bed SBA MET 7. Minimal assist gait on level surface with use of front wheeled walker for at least 300 feet without report of pain nor dyspnea MET 8. Minimal assist stair negotiation while holding onto bilateral rails for at least 5 steps without report of pain nor dyspnea MET 9. Good static and dynamic standing balance/tolerance NOT MET DISCHARGE RECOMMENDATIONS: Patient will benefit from home health PT services in order to progress mobility level using least restrictive assistive ambulatory device, assess home safety, identify additional equipment needs, and establish a functional maintenance program that will increase ability of patient to remain at home. TREATMENT CODE/TIME: MN Thank you for the opportunity to participate in the care of this patient. Julieta aFrley PT, DPT, CLT [facility] [place], [place]
== END 2020-02-01 14:30 | disposition home health service (06) | DRG 415 ==
LOC: ICU 23:17
PROVIDERS: Internal Medicine; Surgery; Admitting Provider Surgery; PCP Student in an Organized Health Care Education/Training Program; Visit Provider Surgery
PROC: 0FT44ZZ Resection of Gallbladder, Percutaneous Endoscopic Approach (ICD-10-PCS; CPT 47562; principal; 2020-01-24 10:30)
DX: K80.66 Calculus of gallbladder and bile duct with acute and chronic cholecystitis without obstruction (principal); K91.61 Intraoperative hemorrhage and hematoma of a digestive system organ or structure complicating a digestive system procedure; N17.9 Acute kidney failure, unspecified; D62 Acute posthemorrhagic anemia; K91.89 Other postprocedural complications and disorders of digestive system; I67.4 Hypertensive encephalopathy; A04.72 Enterocolitis due to Clostridium difficile, not specified as recurrent; K82.A1 Gangrene of gallbladder in cholecystitis; Z53.31 Laparoscopic surgical procedure converted to open procedure; I10 Essential (primary) hypertension; E78.5 Hyperlipidemia, unspecified; E66.9 Obesity, unspecified; N40.0 Benign prostatic hyperplasia without lower urinary tract symptoms; Z87.891 Personal history of nicotine dependence; R41.3 Other amnesia; R41.0 Disorientation, unspecified; Z78.1 Physical restraint status; K59.00 Constipation, unspecified; I16.0 Hypertensive urgency; N39.490 Overflow incontinence
CPT/HCPCS: 47600; 0296T; 36415; 76770; 80048; 80053; 82550; 85027; 86850; 86900; 86901; 86920; 87493; 97110; 97163; 97165; 97530; 99232; 99233; 99252; NC; 74018; 81003; 81015; 82436; 82565; 83540; 83550; 83735; 84133; 84300; 84484; 85025; 88304; 99221; J0131; J1100; J1650; J1756; J1941; J2001; J2370; J2543; J3475; J3480; J3490

== ENCOUNTER → 2020-02-02 11:52 | Outpatient (BNVA) | payer MEDICARE, SELFPAY | PROVIDERS: PCP Student in an Organized Health Care Education/Training Program; Referring Provider Student in an Organized Health Care Education/Training Program; Visit Provider Surgery | DX: Z48.815 Encounter for surgical aftercare following surgery on the digestive system (principal); A04.72 Enterocolitis due to Clostridium difficile, not specified as recurrent; D62 Acute posthemorrhagic anemia; Z90.49 Acquired absence of other specified parts of digestive tract ==

== ENCOUNTER → 2020-02-09 11:23 | Outpatient (BNVA) | payer MEDICARE, SELFPAY | PROVIDERS: PCP Student in an Organized Health Care Education/Training Program; Referring Provider Student in an Organized Health Care Education/Training Program; Visit Provider Surgery | DX: R69 Illness, unspecified (principal) ==

== ENCOUNTER 2020-02-09 12:27 | Outpatient (CLI) | payer MEDICARE, SELFPAY ==
[2020-02-09 15:57] LABS: Abs Immature Grans 0.08 10^3/uL (0.0-0.06); Absolute Basophil Count 0.04 10^3/uL (0.0-0.2); Absolute Lymphocyte Count 1.32 10^3/uL (1.2-3.4); Absolute Monocyte Count 0.93 10^3/uL (0.1-0.8); Absolute Neutrophil Count 6.56 10^3/uL (1.2-6.7); Basophils % 0.4; Eosinophils % 1.1; HCT 37.2 % (40.0-50.0); HGB 11.8 g/dL (13.5-17.5); Immature Grans % 0.9; Lymphocytes % 14.6; MCH 27.9 pg (27.0-33.0); MCHC 31.7 % (32.0-36.0); MCV 87.9 fL (80-95); Monocytes % 10.3; Neutrophils % 72.7; Nucleated RBC 0 %; Platelet Count 256 10^3/uL (130-400); RBC 4.23 10^6/uL (4.36-5.78); RDW 15.7 % (11.8-14.1); RDW-SD 50.5 fL; WBC 9.03 10^3/uL (4.4-10.8)
[2020-02-09 16:07] LABS: INR 1.1 (0.9-1.1)
[2020-02-09 16:09] LABS: Bilirubin Negative (Negative); Blood Trace-lysed (Negative); Clarity Clear (Clear); Glucose Negative (Negative); Ketones Negative (Negative); Leukocyte Esterase Negative (Negative); Nitrite Negative (Negative); Specific Gravity >= 1.030 (1.005-1.025); Urobilinogen 0.2 EU/dL (Up TO 0.2); pH 5.5 (5-8)
[2020-02-09 16:10] LABS: ALT 33 U/L (16-63); AST 20 U/L (15-37); Alkaline Phosphatase 82 U/L (46-116); Anion Gap 5.3 mmol/L (3-11); BUN 26 mg/dL (7-18); Bilirubin, Total 0.6 mg/dL (0.2-1.0); CO2 28.7 mmol/L (21.0-32.0); CREATININE 1.34 mg/dL (0.70-1.30); Calcium 9.6 mg/dL (8.5-10.1); Chloride 104 mmol/L (98-107); Estimated GFR 51.29 (mL/min/1.73m2); Glucose 125 mg/dL (74-106); Potassium 3.6 mmol/L (3.5-5.1); Sodium 138 mmol/L (136-145); Total Protein 6.8 g/dL (6.4-8.2)
[2020-02-09 16:22] LABS: Bacteria Negative HPF (Negative); C & S Indicated? No; Casts 5-10 Hyaline LPF (Negative); Crystals Few Amorphous HPF (Negative); Epithelial Cells Few HPF (Negative); Mucus Moderate (Negative); RBC Negative HPF (0-2)
[2020-02-09 16:46] LABS: D-Dimer 4642 ng/mlFEU (<500)
[2020-02-09 16:48] LABS: Calculated LDL 82 mg/dL (<100); Cholesterol 154 mg/dL (<200); HDL Cholesterol 38 mg/dL (40-60); Triglyceride 170 mg/dL (<150)
== END 2020-02-09 12:47 ==
PROVIDERS: PCP Student in an Organized Health Care Education/Training Program; Visit Provider Surgery
DX: I10 Essential (primary) hypertension (principal); D62 Acute posthemorrhagic anemia; N17.9 Acute kidney failure, unspecified; M79.662 Pain in left lower leg; R35.0 Frequency of micturition; Z90.49 Acquired absence of other specified parts of digestive tract
CPT/HCPCS: 36415; 80053; 80061; 81003; 81015; 85025; 85379; 85610; 93971

== ENCOUNTER 2020-02-09 12:39 | Outpatient (CLI) | payer MEDICARE, SELFPAY ==
--- NOTE | 2020-02-09 12:30 | DI.US_ITS ---
EXAM: US LOWER EXTREMITY VENOUS LT CLINICAL HISTORY: pain left calf, post op izzy, ? DVT after surgery, Z01.818, Z90.49 TECHNIQUE: Ultrasound performed using standard protocol. COMPARISON: US US RENAL from 01/28/2020 FINDINGS: Duplex venous ultrasound left lower extremity was performed according to the usual protocol. Deep ve ins appear normal to the level of the popliteal vein with no evidence visible thrombus or lack of com pressibility. Veins of the calf are fairly well visualized. There is visible thrombus in a peroneal vein in the pr oximal to mid calf measuring about 10 cm in length. Remainder of the visible deep veins of the calf appear normal. IMPRESSION: Localized calf vein thrombus in a peroneal vein. No DVT at the level of the popliteal vein or above. DATA REPOSITORY:
--- NOTE | 2020-02-14 13:11 | W.ZIOMONITOR ---
Date of service: 02/14/20 Time of Service: 13:11 14 Day Injector Assembler Referring Provider:: Peter Indications:: Arrhythmia Note: There is a 14-day monitor ordered for indication of arrhythmia. ?The patient was in normal sinus rhythm for the majority of the recording with an average heart rate of 80 bpm. ?There were no episodes of SVT and rare PACs. ?There were 4 episodes of ventricular tachycardia with the longest lasting 9 beats. There were rare PVCs. ?There were no episodes of atrial fibrillation, no pauses greater than 3 seconds and no evidence of high degree heart block. ?There were no patient triggered events.
== END 2020-02-09 12:59 ==
PROVIDERS: PCP Student in an Organized Health Care Education/Training Program; Visit Provider Surgery
DX: I82.452 Acute embolism and thrombosis of left peroneal vein (principal); Z48.815 Encounter for surgical aftercare following surgery on the digestive system; Z90.49 Acquired absence of other specified parts of digestive tract; I10 Essential (primary) hypertension; M79.662 Pain in left lower leg; I49.9 Cardiac arrhythmia, unspecified
CPT/HCPCS: 93971

== ENCOUNTER → 2020-02-14 11:42 | Outpatient (BNVA) | payer MEDICARE, SELFPAY | PROVIDERS: PCP Student in an Organized Health Care Education/Training Program; Referring Provider Student in an Organized Health Care Education/Training Program; Visit Provider Surgery | DX: Z90.49 Acquired absence of other specified parts of digestive tract (principal); I82.452 Acute embolism and thrombosis of left peroneal vein; Z48.815 Encounter for surgical aftercare following surgery on the digestive system ==

== ENCOUNTER 2020-02-14 13:11 | Outpatient (CLI) | payer MEDICARE, SELFPAY | END 2020-02-14 13:31 | PROVIDERS: PCP Student in an Organized Health Care Education/Training Program; Referring Provider Student in an Organized Health Care Education/Training Program; Visit Provider Internal Medicine Cardiovascular Disease | DX: I49.1 Atrial premature depolarization; I47.2 Ventricular tachycardia | CPT/HCPCS: 0298T; 93248 ==

== ENCOUNTER 2020-02-14 18:59 | Outpatient (REF) | payer MEDICARE, SELFPAY ==
[2020-02-14 12:40] LABS: Abs Immature Grans 0.06 10^3/uL (0.0-0.06); Absolute Basophil Count 0.07 10^3/uL (0.0-0.2); Absolute Eosinophil Count 0.12 10^3/uL (0.0-0.7); Absolute Lymphocyte Count 1.35 10^3/uL (1.2-3.4); Absolute Monocyte Count 0.76 10^3/uL (0.1-0.8); Absolute Neutrophil Count 4.82 10^3/uL (1.2-6.7); Eosinophils % 1.7; HCT 38.9 % (40.0-50.0); HGB 12.4 g/dL (13.5-17.5); Immature Grans % 0.8; Lymphocytes % 18.8; MCH 28.1 pg (27.0-33.0); MCHC 31.9 % (32.0-36.0); MPV 9.5 fL (8.0-11.0); Monocytes % 10.6; Neutrophils % 67.1; Nucleated RBC 0 %; Platelet Count 233 10^3/uL (130-400); RBC 4.42 10^6/uL (4.36-5.78); RDW-SD 48.5 fL; WBC 7.18 10^3/uL (4.4-10.8)
[2020-02-14 12:53] LABS: ALT 32 U/L (16-63); AST 19 U/L (15-37); Albumin 3.3 g/dL (3.4-5.0); Alkaline Phosphatase 87 U/L (46-116); Anion Gap 3.6 mmol/L (3-11); BUN 29 mg/dL (7-18); Bilirubin, Total 0.7 mg/dL (0.2-1.0); CO2 31.4 mmol/L (21.0-32.0); CREATININE 1.34 mg/dL (0.70-1.30); Calcium 9.8 mg/dL (8.5-10.1); Chloride 104 mmol/L (98-107); Estimated GFR 51.29 (mL/min/1.73m2); Glucose 109 mg/dL (74-106); Potassium 4.3 mmol/L (3.5-5.1); Sodium 139 mmol/L (136-145); Total Protein 6.6 g/dL (6.4-8.2)
== END 2020-02-14 19:19 ==
LOC: LBN 18:59
PROVIDERS: PCP Student in an Organized Health Care Education/Training Program; Visit Provider Surgery
DX: D62 Acute posthemorrhagic anemia (principal); I49.9 Cardiac arrhythmia, unspecified; N17.9 Acute kidney failure, unspecified; I82.409 Acute embolism and thrombosis of unspecified deep veins of unspecified lower extremity; K85.10 Biliary acute pancreatitis without necrosis or infection; E66.9 Obesity, unspecified
CPT/HCPCS: 80053; 85025

== ENCOUNTER → 2020-02-28 11:26 | Outpatient (BNVA) | payer MEDICARE, SELFPAY | PROVIDERS: PCP Student in an Organized Health Care Education/Training Program; Referring Provider Student in an Organized Health Care Education/Training Program; Visit Provider Surgery | DX: Z90.49 Acquired absence of other specified parts of digestive tract (principal); I82.452 Acute embolism and thrombosis of left peroneal vein; Z48.815 Encounter for surgical aftercare following surgery on the digestive system; I10 Essential (primary) hypertension ==

== ENCOUNTER 2020-05-05 02:51 | Outpatient (CLI) | payer MEDICARE, SELFPAY ==
--- NOTE | 2020-05-05 07:30 | DI.US_ITS ---
EXAM: US LOWER EXTREMITY VENOUS LT CLINICAL HISTORY: f/u from DVT02/08,I82.452. TECHNIQUE: Ultrasound performed using standard protocol. COMPARISON: US US LOWER EXTREMITY VENOUS LT from 02/09/2020 FINDINGS: Duplex venous ultrasound was performed according to the usual protocol. The deep veins are freely com pressible throughout and there is normal flow augmentation with manual calf compression. 2D and Doppl er evaluation are unremarkable. IMPRESSION: No evidence of deep venous thrombosis of the left lower extremity. DATA REPOSITORY:
== END 2020-05-05 03:11 ==
PROVIDERS: PCP Student in an Organized Health Care Education/Training Program; Visit Provider Surgery
DX: I82.452 Acute embolism and thrombosis of left peroneal vein (principal)
CPT/HCPCS: 93971

== ENCOUNTER → 2020-08-22 08:20 | Outpatient (BNVA) | payer MEDICARE, SELFPAY | PROVIDERS: PCP Student in an Organized Health Care Education/Training Program; Referring Provider Student in an Organized Health Care Education/Training Program; Visit Provider Nurse Practitioner Gerontology | DX: N40.0 Benign prostatic hyperplasia without lower urinary tract symptoms (principal) | CPT/HCPCS: 99214 ==

== ENCOUNTER 2020-10-24 01:08 | Outpatient (CLI) | payer MEDICARE, SELFPAY ==
--- NOTE | 2020-10-24 10:35 | DI.RAD_ITS ---
Exam(s) XR KNEE LT 3V AP,LAT,AZEB EXAM: XR KNEE LT 3V AP,LAT,AZEB CLINICAL HISTORY: evaluate degeneration;LT KNEE PAIN, M25.562. TECHNIQUE: 2D digital imaging was performed. COMPARISON: No exams were available for comparison FINDINGS: BONES: No acute fracture is present. No bony destructive lesion is seen. Prominence of the tibial t ubercle. JOINTS: Severe narrowing of the medial femoral tibial joint space causing varus angulation at the kne e. There is lateral subluxation of the tibia with respect to the distal femur.. There is sclerosis and subchondral cyst formation. Periarticular spurring throughout. Chondrocalcinosis visible in the lateral meniscus. Small joint effusion. SOFT TISSUE: Mild vascular calcifications. IMPRESSION: Severe degenerative changes of the medial femoral tibial joint. DATA REPOSITORY: RADIATION DOSE DELIVERED:
== END 2020-10-24 01:28 ==
PROVIDERS: PCP Student in an Organized Health Care Education/Training Program; Visit Provider Student in an Organized Health Care Education/Training Program
DX: M25.562 Pain in left knee (principal); M17.12 Unilateral primary osteoarthritis, left knee
CPT/HCPCS: 73562

== ENCOUNTER 2020-11-20 01:50 | Outpatient (CLI) | payer MEDICARE, SELFPAY ==
[2020-11-20 10:38] LABS: HCT 39.6 % (40.0-50.0); HGB 12.9 g/dL (13.5-17.5); MCH 28.2 pg (27.0-33.0); MCHC 32.6 % (32.0-36.0); MCV 86.5 fL (80-95); MPV 9.3 fL (8.0-11.0); Platelet Count 209 10^3/uL (130-400); RBC 4.58 10^6/uL (4.36-5.78); RDW 14.6 % (11.8-14.1); RDW-SD 46.4 fL; WBC 10.39 10^3/uL (4.4-10.8)
[2020-11-20 14:51] LABS: Anion Gap 8.9 mmol/L (3-11); BUN 46 mg/dL (7-18); CO2 27.1 mmol/L (21.0-32.0); CREATININE 2.2 mg/dL (0.70-1.30); Calcium 9.5 mg/dL (8.5-10.1); Chloride 104 mmol/L (98-107); Estimated GFR 28.87 (mL/min/1.73m2); Glucose 111 mg/dL (74-106); Potassium 4.4 mmol/L (3.5-5.1); Sodium 140 mmol/L (136-145)
== END 2020-11-20 01:51 | disposition home or self-care (01) ==
LOC: LBO 01:50
PROVIDERS: Nurse Practitioner Adult Health; PCP Student in an Organized Health Care Education/Training Program; Visit Provider Student in an Organized Health Care Education/Training Program
DX: I10 Essential (primary) hypertension (principal); D62 Acute posthemorrhagic anemia; N17.9 Acute kidney failure, unspecified
CPT/HCPCS: 36415; 80048; 85027

== ENCOUNTER 2020-12-04 02:34 | Outpatient (CLI) | payer MEDICARE, SELFPAY ==
[2020-12-04 11:02] LABS: ALT 40 U/L (16-63); AST 16 U/L (15-37); Albumin 3.3 g/dL (3.4-5.0); Alkaline Phosphatase 92 U/L (46-116); Anion Gap 7.1 mmol/L (3-11); BUN 38 mg/dL (7-18); Bilirubin, Total 0.7 mg/dL (0.2-1.0); CO2 32.9 mmol/L (21.0-32.0); CREATININE 1.5 mg/dL (0.70-1.30); Calcium 9.8 mg/dL (8.5-10.1); Chloride 105 mmol/L (98-107); Estimated GFR 44.92 (mL/min/1.73m2); Glucose 99 mg/dL (74-106); Potassium 4.5 mmol/L (3.5-5.1); Sodium 145 mmol/L (136-145); Total Protein 6.9 g/dL (6.4-8.2)
== END 2020-12-04 02:35 | disposition home or self-care (01) ==
LOC: LBO 02:34
PROVIDERS: PCP Student in an Organized Health Care Education/Training Program; Visit Provider Student in an Organized Health Care Education/Training Program
DX: E86.0 Dehydration (principal)
CPT/HCPCS: 36415; 80053

== ENCOUNTER → 2020-12-07 11:24 | Outpatient (BNVA) | payer MEDICARE, SELFPAY | PROVIDERS: PCP Student in an Organized Health Care Education/Training Program; Referring Provider Student in an Organized Health Care Education/Training Program; Visit Provider Student in an Organized Health Care Education/Training Program | DX: M17.12 Unilateral primary osteoarthritis, left knee (principal) | CPT/HCPCS: 20610; 99213; J1040 ==

== ENCOUNTER 2020-12-08 01:31 | Outpatient (CLI) | payer MEDICARE, SELFPAY ==
[2020-12-08 10:46] LABS: Source Nasal/Nares
[2020-12-08 14:31] LABS: COVID-19 PCR Negative (Negative)
== END 2020-12-08 01:32 | disposition home or self-care (01) ==
LOC: LBO 01:31
PROVIDERS: PCP Student in an Organized Health Care Education/Training Program; Visit Provider Ophthalmology
DX: Z20.822 Contact with and (suspected) exposure to COVID-19 (principal); Z01.818 Encounter for other preprocedural examination
CPT/HCPCS: 87635

== ENCOUNTER 2020-12-11 11:45 | Day surgery (SDC) | payer MEDICARE, SELFPAY ==
--- NOTE | 2020-12-11 06:57 | W.PREOPHP ---
Date of service: 12/11/20 Time of Service: 07:02 Assessment and Plan Assessment and plan (1) Nuclear sclerotic cataract of right eye: Status: Acute Assessment and plan: Assessment. Visually significant cataract of the right eye. Plan is for cataract extraction with lens implantation of the right eye (2) Posterior subcapsular age-related cataract, right eye: Status: Acute Assessment and plan: Assessment: Visually significant cataract of the right eye. Plan is for cataract extraction with lens implantation, right eye History of Present Illness History of Present Illness Chief Complaint: Progressive decreased vision in both eyes Narrative: The patient is an 79-year-old male with history of painless progressive decreased vision in both eyes, right eye worse than left. Significant difficulty with glare from headlights at night. Difficulty reading fine print with the right eye. Review of Systems All systems reviewed & are unremarkable except as noted in HPI and below PFSH Medical History Anemia due to blood loss, acute Benign hypertension (12/09/05) <140/85; BP was high at time of colonoscopy so Dr. Taylor started him on HCTZ 2005. High BP readings @ ophtho, urol . turns out to be 2' finesteride, Dr. Smallwood d/c'd .. will follow up in July 2018. 125/85 today, 06/2018, ik. BPH w/o urinary obs/LUTS (02/15/11) nocturiaX1-2; INCR 3X 09/2012 Choledocholithiasis with cholecystitis DVT (deep venous thrombosis) Resolved, Cinda D/C'd 07/2020 by Surg. 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 Not a surgical candidate. Cane helping - may need training.. Leg edema Worsening, re-start furosemide, 10/2020 Memory disturbance (04/25/14) MOCA 22 (09/2013) Per pt. denies this stated that this was due to an interaction a year ago where having the masks on and he his hard of hearing they stated he had dementia which his and current PCP stated he does not. Obesity, Class II, BMI 35-39.9, no comorbidity (02/15/11) His goal 220 (100kg); 191=87kg=BMI 30 Osteoarthritis of left knee Steroid injection: 12/07/2020 Pain in joint, other specified sites (02/15/11) Urine frequency Surgical History Arthroscopy (02/10/84) in CT, Left knee S/P cholecystectomy (01/24/20) S/P ERCP Family History Son Age: 58 No problems noted. 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 [employer] Current gender identity: male What type of physical activity do you participate in: none Working smoke detector in home: Yes Fire extinguisher in home: Yes Carbon monox detector in home: Yes Do you feel safe at home: Yes Additional Social history: unable to assess [facility] Allergies and Home Medications Allergies Allergy/AdvReac Type Severity Reaction Status Date / Time amlodipine AdvReac Mild nightmares/restless Verified 12/11/20 11:55 sleep hydrochlorothiazide AdvReac Mild possible Verified 12/11/20 11:55 Erectile dysfunction finasteride AdvReac Hypertensio Verified 12/11/20 11:55 n Home Medications Medication Instructions Recorded Confirmed Type acetaminophen [Acetaminophen Extra 1,000 mg PO PRN PRN 06/11/12 12/11/20 History Strength] polyvinyl alcohol [Artificial 1 drp OPHTHALMIC PRN PRN 06/11/12 12/11/20 History Tears (polyvin alc)] amlodipine 5 mg tablet 5 mg PO DAILY #90 tab 08/06/20 12/07/20 Rx metoprolol tartrate 25 mg tablet 12.5 mg PO BID #180 tab 08/06/20 12/11/20 Rx aspirin [Aspir-81] 81 mg PO DAILY 12/11/20 12/11/20 History Exam Eyes Other: Corrected visual acuity measures 20/100 right eye, 20/30 left eye. Intraocular pressure is 17 right eye, 19 left eye. Slit-lamp examination reveals 2+ nuclear sclerosis in the right eye with 1+ posterior subcapsular cataract. The left eye has 2+ nuclear with 1+ posterior subcapsular cataract as well. Pupils dilated to 5 mm. Disc cupping of 0.3 OU with normal vessels, macula, peripheral retina and vitreous. Resp Auscultation: clear to auscultation bilaterally Cardio Rate: regular rate Rhythm: regular rhythm
[2020-12-11 11:50] VITALS: BP 192/112; PULSE 83; RESP 18; TEMP 36.3; O2SAT 95
[2020-12-11] MEDS: Tropicam./Phenyleph. (1/2.5%) 5 ML BTL OD ×3 (12:18→12:27)
--- NOTE | 2020-12-11 12:56 | W.ANESPRE ---
General Info Date of Service Date Performed: 12/11/20 Height: 5 ft 4 in Weight: 118.9 kg Body Mass Index (BMI): 44.9 Surgical Procedure: Operation Date: 12/11/20 15:40 Proposed Procedures Side Surgeon p Cataract Extraction with IOL Implant Right Eduar Abdul MD Meds Allergies and Home Medications Allergies Allergy/AdvReac Type Severity Reaction Status Date / Time amlodipine AdvReac Mild nightmares/restless Verified 12/11/20 11:55 sleep hydrochlorothiazide AdvReac Mild possible Verified 12/11/20 11:55 Erectile dysfunction finasteride AdvReac Hypertensio Verified 12/11/20 11:55 n Home Medication Medication Instructions Recorded acetaminophen [Acetaminophen Extra 1,000 mg PO PRN PRN 06/11/12 Strength] polyvinyl alcohol [Artificial 1 drp OPHTHALMIC PRN PRN 06/11/12 Tears (polyvin alc)] amlodipine 5 mg tablet 5 mg PO DAILY #90 tab 08/06/20 metoprolol tartrate 25 mg tablet 12.5 mg PO BID #180 tab 08/06/20 aspirin [Aspir-81] 81 mg PO DAILY 12/11/20 Current Visit Medications: Current Medications Generic Name Dose Route Start Last Admin Trade Name Freq PRN Reason Stop Dose Admin Acetaminophen 1,000 mg 12/11/20 06:00 Acetaminophen 500 Mg Tab PO Q4H PRN PRN Miscellaneous Medication 0 ml 12/11/20 06:00 Prednisolone 1%, Moxifloxacin 0.5%, Nepafenac 0.1% 5ml Btl OD DIRECTED PIPER Miscellaneous Medication 0 ml 12/11/20 06:00 12/11/20 12:27 Tropicam./Phenyleph. 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 difficile colitis A04.72 HTN (hypertension) I10 Nuclear sclerotic cataract of right eye H25.11 Posterior subcapsular age-related cataract, right eye H25.041 Osteoarthritis of left knee M17.12 Leg edema R60.0 Left knee pain M25.562 Choledocholithiasis with cholecystitis K80.40 S/P cholecystectomy 01/24/20 Z90.49 DVT (deep venous thrombosis) I82.409 Urine frequency R35.0 Anemia due to blood loss, acute D62 Pain in joint, other specified sites 02/15/11 M25.50 Obesity, Class II, BMI 35-39.9, no comorbidity 02/15/11 E66.9 Memory disturbance 04/25/14 R41.3 Impotence, organic 02/15/11 N52.9 Hyperlipidemia 10/24/04 E78.5 Benign hypertension 12/09/05 I10 BPH w/o urinary obs/LUTS 02/15/11 N40.0 Medical History Medical History Anemia due to blood loss, acute Benign hypertension (12/09/05) <140/85; BP was high at time of colonoscopy so Dr. Taylor started him on HCTZ 2005. High BP readings @ ophtho, urol . turns out to be 2' finesteride, Dr. Smallwood d/c'd .. will follow up in July 2018. 125/85 today, 06/2018, ik. BPH w/o urinary obs/LUTS (02/15/11) nocturiaX1-2; INCR 3X 09/2012 Choledocholithiasis with cholecystitis DVT (deep venous thrombosis) Resolved, Eliquis D/C'd 07/2020 by Surg. 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 Not a surgical candidate. Cane helping - may need training.. Leg edema Worsening, re-start furosemide, 10/2020 Memory disturbance (04/25/14) MOCA 22 (09/2013) Per pt. denies this stated that this was due to an interaction a year ago where having the masks on and he his hard of hearing they stated he had dementia which his and current PCP stated he does not. Obesity, Class II, BMI 35-39.9, no comorbidity (02/15/11) His goal 220 (100kg); 191=87kg=BMI 30 Osteoarthritis of left knee Steroid injection: 12/07/2020 Pain in joint, other specified sites (02/15/11) Urine frequency Surgical History Surgical History Arthroscopy (02/10/84) in CT, Left knee S/P cholecystectomy (01/24/20) S/P ERCP Tobacco Smoking/Tobacco Use Status: Former Tobacco Use Alcohol Alcohol Intake: never Substance Use Substance use: Never Substance use type: does not use Vital Signs and Lab Results Vital Signs Most Recent Vital Signs in EMR: Most Recent Vital Signs Temp Pulse Resp BP Pulse Ox 36.3 C L 83 18 192/112 H 95 12/11/20 11:50 12/11/20 11:50 12/11/20 11:50 12/11/20 11:50 12/11/20 11:50 Lab Results Blood Type / Crossmatch: No Data to Display Complete Blood Count: White Blood Count 10.39 10^3/uL (4.4-10.8) 11/20/20 10:25 11/20/20 Red Blood Count 4.58 10^6/uL (4.36-5.78) 11/20/20 10:25 11/20/20 Hemoglobin 12.9 g/dL (13.5-17.5) L 11/20/20 10:25 11/20/20 Hematocrit 39.6 % (40.0-50.0) L 11/20/20 10:25 11/20/20 Platelet Count 209 10^3/uL (130-400) 11/20/20 10:25 11/20/20 Complete Metabolic Panel: Sodium Level 145 mmol/L (136-145) 12/04/20 09:09 12/04/20 Potassium Level 4.5 mmol/L (3.5-5.1) 12/04/20 09:09 12/04/20 Chloride Level 105 mmol/L (98-107) 12/04/20 09:09 12/04/20 Carbon Dioxide Level 32.9 mmol/L (21.0-32.0) H 12/04/20 09:09 12/04/20 Blood Urea Nitrogen 38 mg/dL (7-18) H 12/04/20 09:09 12/04/20 Creatinine 1.5 mg/dL (0.70-1.30) H 12/04/20 09:09 12/04/20 Estimated GFR/1.73 m2 44.92 (mL/min/1.73m2) 12/04/20 09:09 12/04/20 Calcium Level 9.8 mg/dL (8.5-10.1) 12/04/20 09:09 12/04/20 Albumin 3.3 g/dL (3.4-5.0) L 12/04/20 09:09 12/04/20 Glucose Level 99 mg/dL (74-106) 12/04/20 09:09 12/04/20 Liver Function Panel: Alanine Aminotransferase (ALT/SGPT) 40 U/L (16-63) 12/04/20 09:09 12/04/20 Aspartate Amino Transf (AST/SGOT) 16 U/L (15-37) 12/04/20 09:09 12/04/20 Coagulation Panel: No Data to Display Cardiac Panel: No Data to Display Arterial Blood Gas: No Data to Display Venous Blood Gas: No Data to Display Pancreas Panel: No Data to Display Thyroid Panel: No Data to Display Infectious Disease: Coronavirus (COVID-19)(PCR) Negative (Negative) 12/08/20 09:09 12/08/20 Coronavirus 2019 Source Nasal/Nares 12/08/20 09:09 12/08/20 Blood Cultures: No Data to Display Toxicology Panel: No Data to Display Anesthesia Assessment and Plan Anesthesia History Personal History: No History of Anesthesia Complications Family History: No Family History of Anesthesia Complications Exercise Tolerance Exercise Tolerance: Metabolic Equivalents>4 Pertinent Negatives Pertinent Negatives: No Symptoms of GERD Cardiac & Pulmonary Exam Cardiac Exam: Normal S1/S2 Heart Sounds Pulmonary Exam: Clear Bilateral Breath Sounds Airway Exam Known Difficult Airway: No Mallampati Class: 4 Mouth Opening: Normal (> 3cm) Thyromental Distance: Greater than 3 cm Facial Hair: Full Ortiz Neck Range of Motion: Full ROM Neck Circumference: Normal Teeth Condition: Normal Dentition ASA Classification ASA Score: ASA 2 Emergency Case?: No NPO Status NPO Status: NPO Clears >2 hours, Solids >8 hours Anesthesia Plan Resuscitation Status: Full Code Anesthesia Technique: MAC Anesthesia Airway Planned: Natural Airway Monitors Used: Standard Monitors
[2020-12-11 13:12] VITALS: BMI 44.9
[2020-12-11] MEDS: Lactated Ringers 1,000 ML 30 ML IV ×2 (13:28→13:30)
[2020-12-11] MEDS: Tetracaine 0.5% 4 ML BTL OD (13:31)
[2020-12-11] MEDS: Lidocaine 2% Jelly 6 ML SYR (13:32)
[2020-12-11] MEDS: Duovisc Viscoelastic System EACH 1 EACH (13:39)
[2020-12-11] MEDS: Balanced Salt Soln.-PLUS 500 ML BAG (13:39)
[2020-12-11] MEDS: Lidocaine 1% Pres-Free 5 ML VIAL (13:40)
[2020-12-11] MEDS: Povidone-Iodine Ophth 30 ML BTL (13:41)
[2020-12-11 14:00] VITALS: BP 151/94; PULSE 76; RESP 18; TEMP 36.9; O2SAT 98
--- NOTE | 2020-12-11 14:01 | W.PM.DSUDISC ---
Discharge Plan Disposition Patient Disposition: HOME Condition: Good Discharge Details Attending Provider: Eduar Abdul Primary Care Provider: Elana Green Home Meds and New Rx's Prescriptions: No Action amlodipine 5 mg tablet 5 mg PO DAILY Qty: 90 RF: 3 Hold Instructions: Home Medication placed on hold at Doctor's office metoprolol tartrate 25 mg tablet 12.5 mg PO BID Qty: 180 RF: 3 polyvinyl alcohol [Artificial Tears (polyvin alc)] 15 ML drops 1 drp Ophthalmic PRN PRNRF: 0 acetaminophen [Acetaminophen Extra Strength] 500 MG tablet 1,000 mg PO PRN PRNRF: 0 aspirin [Aspir-81] 81 mg Tablet,Delayed Release (Dr/Ec) 81 mg PO DAILY RF: 0 Discharge Instructions Stand Alone Forms: Post-op Topical Cataract, Kali Link (DSU) Discharge Orders Discharge Orders: Discharge Order (Routine); Ordered 12/11/20 Ordered By: Eduar Abdul DS: Diagnosis Discharge Diagnosis (1) Nuclear sclerotic cataract of right eye: Status: Resolved (2) Posterior subcapsular age-related cataract, right eye: Status: Resolved
--- NOTE | 2020-12-11 14:02 | W.PM.OP ---
Date of service: 12/11/20 Time of Service: 14:02 Operative Note Operative Note DATE OF PROCEDURE: 12/11/20 PRE-OP DIAGNOSIS: Nuclear/posterior subcapsular cataract, right eye POST-OP DIAGNOSIS: same PROCEDURE: Cataract extraction using phacoemulsification with intraocular lens implant, right eye SURGEON: Eduar Abdul ANESTHESIA TYPE: Local By Surgeon and MAC Refer to Anesthesia Record ESTIMATED BLOOD LOSS: 0 PATHOLOGY: none sent COMPLICATIONS: None Patient was transported to: same day Patient's condition: stable Implants: Donn & Donn/CONSTANCE Tecnis [id number] Indications: Progressive visual loss due to cataract, right eye Procedure Description: CATARACT SURGERY OPERATIVE REPORT PREOPERATIVE DIAGNOSIS: 1. Nuclear/posterior subcapsular cataract, right eye POSTOPERATIVE DIAGNOSIS: Same OPERATION: 1. Cataract extraction using phacoemulsification with posterior chamber intraocular lens implant, right eye. IOL: IOL Global Marketing Operations Manager/Model: Donn & Donn / CONSTANCE [employer]ecnis [id number] IOL Power: + 22.0 diopters IOL Serial Number: [id number] Optic Diameter: 6.0mm Haptic/Overall Diameter: 13.0mm PHACO INFO: Imtiaz DS Laboratoriesurion Vision System with OZil and Active Fluidics Cumulative Dispersed Energy (CDE): 13.58 seconds SURGEON: Eduar Abdul MD, MINDY ANESTHESIA: Monitored Anesthesia Care (MAC), with local sub-tenon's anesthetic infiltration COMPLICATIONS: None SPECIMENS: None INDICATIONS FOR PROCEDURE: The patient is a 80-year-old gentleman with history of diminished visual acuity in his right eye secondary to the development of nuclear and posterior subcapsular cataract. He is significantly symptomatic that he desires cataract surgery and attempt to improve and maximize his vision. PROCEDURE: The correct surgical eye was identified and marked as the right eye and the pupil was dilated in the preoperative area using mydriatics and cycloplegics. The dilated pupil size was 6.0 mm. Oral sedation was administered in the form of an Imprimis MKO Melt (midazolam 3mg/ketamine 25mg/ondansetron 2mg). The patient was brought to the operating room where cardiopulmonary monitoring was instituted and surgical time-out was performed, confirming the correct operative eye and IOL power. Positioning was challenging. Topical anesthesia was administered and ophthalmic povidone-iodine 5% was instilled into the conjunctival fornices. Lidocaine gel was applied to the cornea and the miguel-ocular area was prepped with Betadine 10% solution and draped in the usual sterile fashion for intraocular surgery, including an aperture drape. A Tegaderm transparent film dressing was cut in half and used to cover the lashes and lid margins. Care was taken to sequester the lashes and lid margins under the Tegaderm dressing. A lid speculum was placed between the lids of the operative eye and the Dariel-Carlos operating microscope was maneuvered into position. Cristhian scissors were then used to make a conjunctival buttonhole approximately 6mm posterior to the limbus in the inferonasal quadrant. Blunt dissection was carried out to expose bare sclera, and a blunt-tipped sub-tenon?s anesthesia cannula was introduced and passed posteriorly along the globe where non-preserved plain lidocaine was injected into posterior sub-Tenon?s space. A sideport knife was used to make a paracentesis port inferotemporally. Intraocular phenylephrine/lidocaine was injected into the anterior chamber. The anterior chamber was filled with viscoelastic. A 2.4mm keratome knife was used to create a half-thickness groove at the limbus and then to construct a three-plane near-clear corneal tunnel extending 2.0mm into clear cornea superiortemporally. A flap was raised on the anterior capsule and capsulorhexis forceps were used to complete a continuous curvilinear capsulorhexis of 5.0 mm. Balanced salt solution was then used to perform cortical cleaving hydrodissection and nuclear hydrodelineation until the lens could be freely rotated within the capsular bag. The lens nucleus was then disassembled and removed within the capsular bag and iris plane using phacoemulsification. Residual cortical material was removed using the I/A handpiece. The posterior capsule was carefully polished to remove as much residual lens epithelial cells as safely possible. The capsular bag was then inflated and the anterior chamber deepened with viscoelastic. The lens implant described above was inserted into the capsular bag using the CONSTANCE [place] Injector. A Kuglen hook was used to dial the IOL into position. Residual viscoelastic was then removed first from posterior to the IOL, then from the anterior chamber using the I/A handpiece. The lens implant was noted to center nicely within the capsular bag. The incisions were stromally hydrated, and the anterior chamber was reformed using BSS. Then 0.5cc of moxifloxacin 1.0mg/ml were injected into the capsular bag and anterior chamber. The incisions were checked with a Weck spear and found to be secure. Several drops of ophthalmic povidone-iodine 5% were then applied to the eye followed by two drops of Imprimis combination prednisolone/moxifloxacin/nepafenac solution. The drapes were removed and a clear plastic protective eye shield was placed over the eye. The patient was then returned to Same Day Surgery in stable condition.
--- NOTE | 2020-12-11 14:15 | W.ANESPOSTOP ---
Postoperative Evaluation Date, Time and Location Date Performed: 12/11/20 Time Performed: 14:00 Patient Location: Day Surgery Unit Vital Signs Most Recent Imported Vital Signs: Most Recent Vital Signs Temp Pulse Resp BP Pulse Ox 36.9 C 76 18 151/94 H 98 12/11/20 14:00 12/11/20 14:00 12/11/20 14:00 12/11/20 14:00 12/11/20 14:00 Pain Score Most Recent Pain Score: Most Recent Pain Score Pain Level 0 12/11/20 14:00 Assessment Mental Status: Awake (Alert & Oriented to Patient Baseline) Airway and Respiratory Function: Patent airway with normal (patient baseline) respiratory exam Cardiovascular Function: Hemodynamically Stable Hydration Status: Adequately Hydrated Nausea & Vomiting: No Nausea or Vomiting Pain: Pt. Denies Any Pain Peripheral Nerve Block: Patient did not receive a nerve block
== END 2020-12-11 14:47 | disposition home or self-care (01) ==
PROVIDERS: PCP Student in an Organized Health Care Education/Training Program; Visit Provider Ophthalmology
PROC: (CPT 66984; principal; 2020-12-11 15:30)
DX: H25.041 Posterior subcapsular polar age-related cataract, right eye (principal); I10 Essential (primary) hypertension
CPT/HCPCS: 66984; V2632

== ENCOUNTER 2021-02-16 19:40 | Outpatient (CLI) | payer MEDICARE, SELFPAY ==
--- NOTE | 2021-02-16 12:30 | DI.US_ITS ---
Exam(s) US LOWER EXTREMITY VENOUS LT EXAM: US LOWER EXTREMITY VENOUS LT CLINICAL HISTORY: h/o DVT, NEW edema calf pain x1-2d--new DVT?,m79.662,r60.9 TECHNIQUE: Left lower extremity venous ultrasound performed using grayscale, color-flow, and spectra l Doppler analysis. COMPARISON: US US LOWER EXTREMITY VENOUS LT from 05/05/2020 FINDINGS: The left common femoral and profunda vein veins demonstrate normal compressibility, augmentation, and color Doppler. Hypoechoic thrombus is seen throughout the femoral vein extending into the popliteal vein. It measures approximately 26 cm in length. The posterior tibial veins are patent. The saphe nofemoral junction is unremarkable. There is no evidence of a Craig cyst. The soft tissues are unre markable. IMPRESSION: DVT is present extending throughout the femoral vein into the popliteal vein. It measures approximat thelma 26 cm in length. DATA REPOSITORY:
== END 2021-02-16 20:00 ==
PROVIDERS: PCP Student in an Organized Health Care Education/Training Program; Visit Provider Nurse Practitioner Adult Health
DX: I82.412 Acute embolism and thrombosis of left femoral vein (principal); M79.662 Pain in left lower leg; R60.0 Localized edema; Z86.718 Personal history of other venous thrombosis and embolism
CPT/HCPCS: 93971

== ENCOUNTER 2021-06-04 04:44 | Outpatient (CLI) | payer MEDICARE, SELFPAY ==
[2021-06-04 10:26] LABS: HCT 46.7 % (40.0-50.0); HGB 14.5 g/dL (13.5-17.5); MCV 86.8 fL (80-95); MPV 9.3 fL (8.0-11.0); Platelet Count 151 10^3/uL (130-400); RBC 5.38 10^6/uL (4.36-5.78); RDW 14.3 % (11.8-14.1); RDW-SD 45.3 fL; WBC 7.78 10^3/uL (4.4-10.8)
[2021-06-04 11:37] LABS: ALT 23 U/L (16-63); AST 14 U/L (15-37); Albumin 3.8 g/dL (3.4-5.0); Alkaline Phosphatase 68 U/L (46-116); Anion Gap 2.7 mmol/L (3-11); BUN 33 mg/dL (7-18); Bilirubin, Total 1.4 mg/dL (0.2-1.0); CO2 32.3 mmol/L (21.0-32.0); CREATININE 1.4 mg/dL (0.70-1.30); Calcium 9.6 mg/dL (8.5-10.1); Calculated LDL 137 mg/dL (<100); Chloride 107 mmol/L (98-107); Cholesterol 203 mg/dL (<200); Estimated GFR 48.64 (mL/min/1.73m2); Folate 14.5 ng/mL (8.6-20.0); Glucose 97 mg/dL (74-106); HDL Cholesterol 48 mg/dL (40-60); Potassium 4.2 mmol/L (3.5-5.1); Sodium 142 mmol/L (136-145); Total Protein 6.8 g/dL (6.4-8.2); Triglyceride 93 mg/dL (<150); Vitamin B12 510 pg/mL (193-986)
== END 2021-06-04 04:45 | disposition home or self-care (01) ==
LOC: LBO 04:44
PROVIDERS: PCP Student in an Organized Health Care Education/Training Program; Visit Provider Student in an Organized Health Care Education/Training Program
DX: D64.9 Anemia, unspecified (principal); Z13.220 Encounter for screening for lipoid disorders; I10 Essential (primary) hypertension; N28.9 Disorder of kidney and ureter, unspecified; R26.89 Other abnormalities of gait and mobility
CPT/HCPCS: 36415; 80053; 80061; 85027; 82607; 82746

== ENCOUNTER → 2021-06-12 00:25 | Outpatient (CLI) | payer MEDICARE, SELFPAY ==
--- NOTE | 2021-06-12 06:45 | DI.US_ITS ---
Exam(s) US EXTREMITY VENOUS BI EXAM: US EXTREMITY VENOUS BI CLINICAL HISTORY: bilat leg swelling,leg edema,dvt,evaluate lower ext for dvt,r60.9,i82.452,r TECHNIQUE: Grayscale, color, and doppler imaging of the deep venous system of both lower extremities was performed. COMPARISON: US US LOWER EXTREMITY VENOUS LT from 02/16/2021 FINDINGS: There is no evidence of intraluminal thrombus and there is normal compression and augmentation demons trated within the common femoral veins, femoral veins, and popliteal veins of both lower extremities. In the calves the interrogated veins also exhibit normal compression/ augmentation properties. The greater saphenous veins also appear patent as do the saphenofemoral junctions bilaterally.. Incidentally noted is a Craig cyst in the right popliteal fossa measuring 4 cm length IMPRESSION: 1. No ultrasound evidence of DVT in either lower extremity. 2. Right popliteal fossa Craig cyst noted. This measures approximately 4 cm length. DATA REPOSITORY:
== END ==
PROVIDERS: PCP Student in an Organized Health Care Education/Training Program; Visit Provider Student in an Organized Health Care Education/Training Program
DX: R60.0 Localized edema; M71.21 Synovial cyst of popliteal space [Baker], right knee; Z86.718 Personal history of other venous thrombosis and embolism
CPT/HCPCS: 93970

== ENCOUNTER 2021-06-12 01:57 | Outpatient (CLI) | payer MEDICARE, SELFPAY ==
[2021-06-12 10:48] LABS: Anion Gap 6.8 mmol/L (3-11); BUN 33 mg/dL (7-18); CO2 32.2 mmol/L (21.0-32.0); CREATININE 1.5 mg/dL (0.70-1.30); Calcium 9.6 mg/dL (8.5-10.1); Chloride 105 mmol/L (98-107); Estimated GFR 44.92 (mL/min/1.73m2); Glucose 135 mg/dL (74-106); Potassium 3.8 mmol/L (3.5-5.1); Sodium 144 mmol/L (136-145)
== END 2021-06-12 01:58 | disposition home or self-care (01) ==
LOC: LBO 01:57
PROVIDERS: PCP Student in an Organized Health Care Education/Training Program; Visit Provider Student in an Organized Health Care Education/Training Program
DX: T50.2X5A Adverse effect of carbonic-anhydrase inhibitors, benzothiadiazides and other diuretics, initial encounter (principal); R41.3 Other amnesia; Z13.29 Encounter for screening for other suspected endocrine disorder; I10 Essential (primary) hypertension
CPT/HCPCS: 36415; 80048; 84443; 93970

== ENCOUNTER 2021-07-05 03:08 | Outpatient (CLI) | payer MEDICARE, SELFPAY ==
[2021-07-05 10:58] LABS: Anion Gap 8.4 mmol/L (3-11); BUN 36 mg/dL (7-18); CO2 28.6 mmol/L (21.0-32.0); CREATININE 1.5 mg/dL (0.70-1.30); Calcium 9.3 mg/dL (8.5-10.1); Chloride 107 mmol/L (98-107); Estimated GFR 44.92 (mL/min/1.73m2); Glucose 112 mg/dL (74-106); Potassium 4.3 mmol/L (3.5-5.1); Sodium 144 mmol/L (136-145)
== END 2021-07-05 03:09 | disposition home or self-care (01) ==
LOC: LBO 03:09
PROVIDERS: PCP Student in an Organized Health Care Education/Training Program; Visit Provider Student in an Organized Health Care Education/Training Program
DX: R79.89 Other specified abnormal findings of blood chemistry (principal)
CPT/HCPCS: 36415; 80048

== ENCOUNTER 2021-08-10 02:34 | Outpatient (CLI) | payer MEDICARE, SELFPAY ==
[2021-08-10 13:01] LABS: Anion Gap 7.8 mmol/L (3-11); BUN 37 mg/dL (7-18); CO2 27.2 mmol/L (21.0-32.0); CREATININE 1.5 mg/dL (0.70-1.30); Calcium 9.4 mg/dL (8.5-10.1); Chloride 105 mmol/L (98-107); Estimated GFR 44.92 (mL/min/1.73m2); Glucose 132 mg/dL (74-106); Magnesium 2.2 mg/dL (1.8-2.4); Potassium 4.2 mmol/L (3.5-5.1); Sodium 140 mmol/L (136-145)
== END 2021-08-10 02:35 | disposition home or self-care (01) ==
LOC: LOS 02:35
PROVIDERS: PCP Student in an Organized Health Care Education/Training Program; Visit Provider Student in an Organized Health Care Education/Training Program
DX: N28.9 Disorder of kidney and ureter, unspecified (principal); R79.89 Other specified abnormal findings of blood chemistry; E86.0 Dehydration
CPT/HCPCS: 36415; 80048; 83735

== ENCOUNTER 2021-08-10 02:55 | Outpatient (CLI) | payer MEDICARE, SELFPAY | END 2021-08-10 02:56 | disposition home or self-care (01) | LOC: LBO 02:55 | PROVIDERS: PCP Student in an Organized Health Care Education/Training Program; Visit Provider Student in an Organized Health Care Education/Training Program ==

== ENCOUNTER 2021-09-07 01:07 | Outpatient (CLI) | payer MEDICARE, SELFPAY ==
[2021-09-07 12:47] LABS: Anion Gap 8.4 mmol/L (3-11); BUN 39 mg/dL (7-18); CO2 27.6 mmol/L (21.0-32.0); CREATININE 1.5 mg/dL (0.70-1.30); Calcium 9.7 mg/dL (8.5-10.1); Chloride 106 mmol/L (98-107); Estimated GFR 44.92 (mL/min/1.73m2); Glucose 128 mg/dL (74-106); Potassium 4.3 mmol/L (3.5-5.1); Sodium 142 mmol/L (136-145)
== END 2021-09-07 01:08 | disposition home or self-care (01) ==
LOC: LOS 01:08
PROVIDERS: PCP Student in an Organized Health Care Education/Training Program; Visit Provider Student in an Organized Health Care Education/Training Program
DX: R60.0 Localized edema (principal); N28.9 Disorder of kidney and ureter, unspecified
CPT/HCPCS: 36415; 80048

== ENCOUNTER 2021-09-07 01:23 | Outpatient (CLI) | payer MEDICARE, SELFPAY | END 2021-09-07 01:24 | disposition home or self-care (01) | LOC: LBO 01:23 | PROVIDERS: PCP Student in an Organized Health Care Education/Training Program; Visit Provider Student in an Organized Health Care Education/Training Program ==

== ENCOUNTER → 2021-09-12 11:08 | Outpatient (BNVA) | payer MEDICARE, SELFPAY | PROVIDERS: PCP Student in an Organized Health Care Education/Training Program; Referring Provider Student in an Organized Health Care Education/Training Program; Visit Provider Nurse Practitioner Gerontology | DX: N40.1 Benign prostatic hyperplasia with lower urinary tract symptoms (principal); R35.1 Nocturia; R39.89 Other symptoms and signs involving the genitourinary system | CPT/HCPCS: 51798; 99214 ==

== ENCOUNTER → 2021-10-30 12:07 | Outpatient (CLI) | payer MEDICARE, SELFPAY ==
--- NOTE | 2021-10-30 | DI.US_ITS ---
Exam(s) US LOWER EXTREMITY VENOUS LT EXAM: US LOWER EXTREMITY VENOUS LT CLINICAL HISTORY: RECURRENT DVT I82.409 LEFT LEG SWELLING R22.42 TECHNIQUE: Grayscale, color, and doppler imaging of the deep venous system of the left lower extremi ty was performed. COMPARISON: US US EXTREMITY VENOUS BI from 06/12/2021 FINDINGS: There is no evidence of intraluminal thrombus and there is normal compression and augmentation demons trated within the common femoral vein, femoral vein, and popliteal vein. In the ipsilateral calf the interrogated veins also exhibit normal compression/ augmentation properti es. The ipsilateral saphenofemoral junction is patent. IMPRESSION: 1. No evidence of DVT in the left lower extremity. DATA REPOSITORY:
== END ==
PROVIDERS: PCP Student in an Organized Health Care Education/Training Program; Visit Provider Internal Medicine Hematology & Oncology
DX: R22.42 Localized swelling, mass and lump, left lower limb (principal)
CPT/HCPCS: 93971

== ENCOUNTER → 2022-01-14 01:28 | Outpatient (CLI) | payer MEDICARE, SELFPAY ==
--- NOTE | 2022-01-14 10:14 | DI.RAD_ITS ---
Exam(s) XR LUMBAR SPINE COMP W FLEX/EX EXAM: XR LUMBAR SPINE COMP W FLEX/EX CLINICAL HISTORY: BACK AND SIDE PIN, m54.9,? STENOSIS OR LORDOSIS. TECHNIQUE: 2D digital imaging was performed. SEVEN views. Flexion and extension lateral views were performed in addition to the routine views. COMPARISON: No exams were available for comparison FINDINGS: BONES: There is partial sacralization of the right L 5 transverse process. No fracture or destructiv e lesion. Vertebral body heights are maintained. Severe facet hypertrophy identified at L3-4 through L5-S1.. No spondylolysis. DISKS: Severe narrowing L1-2 through L3-4 disc spaces. Prominent endplate osteophytes. ALIGNMENT: Mild spondylolisthesis at L3-4 secondary to facet degenerative changes. No subluxation wi th flexion or extension. SOFT TISSUE: Aorta heavily calcified. IMPRESSION: Advanced degenerative disc changes and facet degenerative changes. DATA REPOSITORY: RADIATION DOSE DELIVERED:
== END ==
PROVIDERS: PCP Student in an Organized Health Care Education/Training Program; Visit Provider Student in an Organized Health Care Education/Training Program
DX: M54.59 Other low back pain (principal); R10.9 Unspecified abdominal pain; M51.36 Other intervertebral disc degeneration, lumbar region; M47.817 Spondylosis without myelopathy or radiculopathy, lumbosacral region; M43.16 Spondylolisthesis, lumbar region
CPT/HCPCS: 36415; 72114; 80048

== ENCOUNTER 2022-01-14 04:18 | Outpatient (CLI) | payer MEDICARE, SELFPAY ==
[2022-01-14 11:15] LABS: Anion Gap 6.7 mmol/L (3-11); BUN 49 mg/dL (7-18); CO2 29.3 mmol/L (21.0-32.0); CREATININE 1.7 mg/dL (0.70-1.30); Chloride 106 mmol/L (98-107); Estimated GFR 39.75 (mL/min/1.73m2); Glucose 108 mg/dL (74-106); Potassium 4.6 mmol/L (3.5-5.1); Sodium 142 mmol/L (136-145)
== END 2022-01-14 04:19 | disposition home or self-care (01) ==
LOC: LBO 04:18
PROVIDERS: PCP Student in an Organized Health Care Education/Training Program; Visit Provider Student in an Organized Health Care Education/Training Program
DX: N28.9 Disorder of kidney and ureter, unspecified (principal)
CPT/HCPCS: 36415; 80048

== ENCOUNTER 2022-02-27 01:19 | Outpatient (CLI) | payer MEDICARE, SELFPAY ==
--- NOTE | 2022-02-27 12:25 | DI.US_ITS ---
Exam(s) US AAA SCREENING EXAM: US AAA SCREENING CLINICAL HISTORY: screening for aaa,i71.4 COMPARISON: CT CT ABDOMEN PELVIS W from 09/03/2019 FINDINGS: Examination is limited by patient body habitus as well as abundant bowel gas which obscures the proxi mal and mid aspect of the abdominal aorta. The lower aspect/distal abdominal aorta appears somewhat atherosclerotic and exhibits diameter 2.5 cm which is similar to the findings on the abdominal CT scan of the August 2019. Both common iliac arteries exhibit upper normal diameters. IMPRESSION: Less than optimal study due to bowel gas obscuring the proximal and mid aspects of the abdominal aort a. I note that these exhibit normal diameter on prior CT scan of August 2019. The lower most aspect of the abdominal aorta is seen and is noted to be atherosclerotic and with measurement of 2.5 cm which is similar to the CT measurement of August 2019. Visualized common iliac arteries exhibit upper normal diameters. DATA REPOSITORY:
== END 2022-02-27 01:39 ==
LOC: DI 01:19
PROVIDERS: PCP Student in an Organized Health Care Education/Training Program; Visit Provider Student in an Organized Health Care Education/Training Program
DX: Z13.6 Encounter for screening for cardiovascular disorders (principal)
CPT/HCPCS: 76706

== ENCOUNTER 2022-03-19 12:01 | Outpatient (CLI) | payer MEDICARE, SELFPAY ==
[2022-03-19 12:52] VITALS: BP 138/86; PULSE 60; RESP 20; TEMP 36.6; O2SAT 100
--- NOTE | 2022-03-19 13:33 | PDOC.PAIN_ITS ---
Date of service: 03/19/22 Time of Service: 13:33 Pain Clinic Procedure Note Procedure Note Procedure Note: Lumbar/Sacral Medial Branch Blocks Raffy Mobley has been referred to the [facility] for lumbar/sacral medial branch blocks. Pre-operative diagnosis: lumbar spondylosis post-operative diagnosis: same as above COMMENTS: patient was evaluated on 03/18/2022 for axial back pain with facet mediated pain, he presents for diangostic LMBB. He takes Xarelto for recurrent DVTs, for which he does not need to hold for today's procedure. Patient was interviewed and the medical record reviewed. There were no medical, pharmacologic, radiographic or other structural contraindications to attempting fluoroscopically guided local anesthetic lumbar/sacral medial branch blocks. Risks and expected side effects as well as potential benefit of the procedure were reviewed and voiced concerns addressed. The printed consent form was signed and witnessed. Standard time-out procedure was performed. Patient was placed in the prone position on the fluoroscopy table and automated blood pressure cuff and pulse oximeter applied. The skin entry points for approaching the anatomic target points of the segmental medial branches of bilateral L3, L4, L5-DR were identified with anfluoroscopy and marked. Following thorough Chlorhexadine preparation of the skin and draping and 1% lidocaine infiltration of the skin entry points and subcutaneous tissues, a 22 gauge spinal needle was placed under fluoroscopic guidance down on to the target point for each respective segmental medial branch.Position was confirmed in A/P, oblique and lateral views with 0.25ml of omnipaque 240. Coult be this method .5ml 0.5% Bupivacaine was injected or 1% Lidocaine. Vital signs were stable throughout the procedure and were as recorded in the docflowsheet by the nursing staff. Follow up plans and appointments were discussed and was instructed to keep careful note of how the usual pain was modified by these injections. Spec ifically was asked to keep a pain diary for the next 24 hours using a numeric pain scale of 0-10 and report these results at the follow-up visit. Post procedure instruction was given as documented in the nursing documentation and having met discharge criteria. Patient was discharged from the Pain Management Center. Based on the medial branches blocked today, if the patient has adequate relief and we are able to proceed to radiofrequency ablation, the treatment should result in the denervation of the bilateral L4/5, L5/S1 facets. We would expect to denervate a total of 4 facets during the radiofrequency ablation. COMMENTS: patient tolerated procedure well without issue. Pre-procedure pain level 5/10, post procedure pain level 0/10. Brenna Lomeli MD Pain Management CC: Elana Green DO
--- NOTE | 2022-03-19 13:58 | DI.RAD_ITS ---
Exam(s) XR PAIN CLINIC LUMBAR SP 2V EXAM: XR PAIN CLINIC LUMBAR SP 2V CLINICAL HISTORY: Dx: Lumbar Spondylosis TECHNIQUE: 2D and realtime digital imaging was performed. Radiologist not present. CONTRAST MATERIAL: None. COMPARISON: No exams were available for comparison FINDINGS: Fluoroscopy was provided for pain management therapy. Please refer to procedure report or details. Radiation Exposure Index: Ka,r=17.39 mGy IMPRESSION: As above. RADIATION DOSE DELIVERED:
[2022-03-19 14:05] VITALS: BP 153/89; PULSE 86; RESP 18; O2SAT 100
[2022-03-19] MEDS: Bupivacaine 0.5% Pres-Free 10 ML VIAL IJ (14:07)
[2022-03-19] MEDS: Omnipaque 240 MG/ML 50 ML BTL IJ (14:07)
== END 2022-03-19 12:02 | disposition home or self-care (01) ==
LOC: PC 12:02
PROVIDERS: PCP Student in an Organized Health Care Education/Training Program; Visit Provider Internal Medicine
DX: M47.816 Spondylosis without myelopathy or radiculopathy, lumbar region (principal); M54.50 Low back pain, unspecified
CPT/HCPCS: 64493; 64494; 72100; Q9967

== ENCOUNTER 2022-04-19 06:22 | Day surgery (SDC) | payer MEDICARE, SELFPAY ==
[2022-04-19 06:30] VITALS: BP 132/85; PULSE 81; RESP 16; TEMP 36.5; O2SAT 97
[2022-04-19] MEDS: Tropicam./Phenyleph. (1/2.5%) 5 ML BTL OS ×3 (06:50→07:05)
--- NOTE | 2022-04-19 06:58 | W.ANESPRE ---
General Info Date of Service Date Performed: 04/19/22 Height: 5 ft 5 in Weight: 121.8 kg Body Mass Index (BMI): 44.6 Surgical Procedure: Operation Date: 04/19/22 07:40 Proposed Procedure Side Surgeon p Cataract Extraction with IOL Implant Left Eduar Abdul MD Meds Allergies and Home Medications Allergies Allergy/AdvReac Type Severity Reaction Status Date / Time amlodipine AdvReac Mild nightmares/restless Verified 04/19/22 06:52 sleep hydrochlorothiazide AdvReac Mild possible Verified 04/19/22 06:52 Erectile dysfunction finasteride AdvReac Hypertensio Verified 04/19/22 06:52 n Home Medication Medication Instructions Recorded acetaminophen 500 mg tablet 1,000 mg PO PRN PRN 06/11/12 (Acetaminophen Extra Strength) polyvinyl alcohol 1.4 % eye drops 1 drp ophthalmic (eye) PRN PRN 06/11/12 (Artificial Tears (polyvinyl alcohol)) lisinopril 40 mg tablet 20 mg PO DAILY #90 tabs 06/14/21 metoprolol tartrate 25 mg tablet 12.5 mg PO DAILY #45 tabs 01/08/22 spironolactone 25 mg tablet 25 mg PO DAILY edema #90 tabs 01/08/22 furosemide 20 mg tablet (Lasix) 20 mg PO BID #180 tabs 01/19/22 rivaroxaban 10 mg tablet 10 mg PO DAILY #30 tabs 04/08/22 Current Visit Medications: Current Medications Generic Name Dose Route Start Last Admin Trade Name Freq PRN Reason Stop Dose Admin Acetaminophen 1,000 mg 04/19/22 06:00 Acetaminophen 500 Mg Tab PO Q4H PRN PRN Miscellaneous Medication 0 ml 04/19/22 06:00 04/19/22 06:57 Tropicam./Phenyleph. 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 Abdominal aortic aneurysm 09/10/10 I71.4 Urine frequency R35.0 DVT (deep venous thrombosis) I82.409 HTN (hypertension) I10 Left knee pain M25.562 Leg edema R60.0 Osteoarthritis of left knee M17.12 Nuclear sclerotic cataract of right eye H25.11 Posterior subcapsular age-related cataract, right eye H25.041 Edema R60.9 Bakers cyst M71.20 Renal insufficiency 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 Taylor started him on HCTZ 2005. High BP readings @ ophtho, urol . turns out to be 2' finesteride, Dr. Smallwood d/c'd .. will follow up in July 2018. 125/85 today, 06/2018, ik. C. difficile colitis RX Vanco Gallstone pancreatitis Surgical History Surgical History Arthroscopy (02/10/84) in CT, Left knee Hx of cataract removal with insertion of prosthetic lens 12/11/20 [place], [facility] S/P cholecystectomy (01/24/20) S/P ERCP Tobacco Smoking/Tobacco Use Status: Former Tobacco Use Alcohol Alcohol Intake: never Substance Use Substance use: Never Substance use type: does not use Vital Signs and Lab Results Vital Signs Most Recent Vital Signs in EMR: Most Recent Vital Signs Temp Pulse Resp BP Pulse Ox 36.5 C 81 16 132/85 97 04/19/22 06:30 04/19/22 06:30 04/19/22 06:30 04/19/22 06:30 04/19/22 06:30 Lab Results Blood Type / Crossmatch: No Data to Display Complete Blood Count: No Data to Display Complete Metabolic Panel: No Data to Display Liver Function Panel: No Data to Display Coagulation Panel: No Data to Display Cardiac Panel: No Data to Display Arterial Blood Gas: No Data to Display Venous Blood Gas: No Data to Display Pancreas Panel: No Data to Display Thyroid Panel: No Data to Display Infectious Disease: No Data to Display Blood Cultures: No Data to Display Toxicology Panel: No Data to Display Imaging and Studies Imaging and Studies Study information below may be from another EMR and interpreted by another provider. Please see original notes in EMR for more complete details. EKG Summary: Conclusion Sinus rhythm...normal P axis, V-rate 60- 99 Atrial premature complexes...SV complexes w/ short R-R intvls Left ventricular hypertrophy...multiple voltage criteria Inferior infarct, old...Q >35mS, II III aVF Anesthesia Assessment and Plan Anesthesia History Personal History: No History of Anesthesia Complications Family History: No Family History of Anesthesia Complications Exercise Tolerance Exercise Tolerance: Metabolic Equivalents>4 Pertinent Negatives Pertinent Negatives: No Symptoms of GERD Cardiac & Pulmonary Exam Cardiac Exam: Normal S1/S2 Heart Sounds Pulmonary Exam: Clear Bilateral Breath Sounds Implantable Cardiac Device Does patient have a Pacemaker or an ICD?: No Airway Exam Known Difficult Airway: No Mallampati Class: 4 Mouth Opening: Normal (> 3cm) Thyromental Distance: Greater than 3 cm Neck Range of Motion: Full ROM Neck Circumference: Normal Teeth Condition: Normal Dentition ASA Classification ASA Score: ASA 2 Emergency Case?: No NPO Status NPO Status: NPO Clears >2 hours, Solids >8 hours Anesthesia Plan Resuscitation Status: Full Code Anesthesia Technique: MAC Anesthesia Airway Planned: Natural Airway Monitors Used: Standard Monitors
[2022-04-19 07:06] VITALS: BMI 44.6
[2022-04-19] MEDS: Tetracaine 0.5% 4 ML BTL OS (07:36)
[2022-04-19] MEDS: Phenylephrine/Lidocaine (15/10) MG/ML 1 ML VIAL (07:37)
[2022-04-19] MEDS: Balanced Salt Soln.-PLUS 500 ML BAG (07:37)
[2022-04-19] MEDS: Duovisc Viscoelastic System EACH 1 EACH (07:38)
[2022-04-19] MEDS: Povidone-Iodine Ophth 30 ML BTL (07:38)
--- NOTE | 2022-04-19 07:56 | W.PM.DSUDISC ---
Date of service: 04/19/22 Time of Service: 07:56 Discharge Plan Disposition Patient Disposition: Home Discharge Details Attending Provider: Eduar Abdul Primary Care Provider: Elana Green Home Meds and New Rx's Prescriptions: No Action lisinopril 40 mg tablet 20 mg PO DAILY Qty: 90 3RF metoprolol tartrate 25 mg tablet 12.5 mg PO DAILY Qty: 45 3RF spironolactone 25 mg tablet 25 mg PO DAILY Qty: 90 3RF Rx Instructions: Continue with afternoon lasix polyvinyl alcohol [Artificial Tears (polyvin alc)] 15 ML drops 1 drp Ophthalmic PRN PRN acetaminophen [Acetaminophen Extra Strength] 500 MG tablet 1,000 mg PO PRN PRN furosemide [Lasix] 20 mg tablet 20 mg PO BID Qty: 180 3RF Rx Instructions: For LE edema, hold 2nd dose for hypotension or dehydration rivaroxaban 10 mg tablet 10 mg PO DAILY Qty: 30 0RF Rx Instructions: Lower dose per [facility] Heme, 11/19/21. Agree. Take with meals. Discharge Instructions Stand Alone Forms: Post-op Topical Cataract, Kali Link (DSU) Discharge Orders Discharge Orders: Discharge Order (Routine); Ordered 04/19/22 Ordered By: Eduar Abdul DS: Diagnosis Discharge Diagnosis (1) Nuclear age-related cataract, left eye: Status: Resolved (2) Posterior subcapsular age-related cataract of left eye: Status: Resolved
--- NOTE | 2022-04-19 07:57 | ROE_ITS ---
Date of service: 04/19/22 Time of Service: 07:57 Operative Note Operative Note DATE OF PROCEDURE: 04/19/22 PRE-OP DIAGNOSIS: Nuclear/posterior subcapsular cataract, left eye POST-OP DIAGNOSIS: same PROCEDURE: Cataract extraction using phacoemulsification with intraocular lens implant, left eye SURGEON: Eduar Abdul ANESTHESIA TYPE: Local By Surgeon and MAC Refer to Anesthesia Record PATHOLOGY: none sent COMPLICATIONS: None Patient was transported to: same day Patient's condition: stable Implants: Imtiaz Clareon [id number] Indications: Progressive decreased vision due to cataract, left eye Procedure Description: CATARACT SURGERY OPERATIVE REPORT PREOPERATIVE DIAGNOSIS: Nuclear/posterior subcapsular cataract, left eye POSTOPERATIVE DIAGNOSIS: Same OPERATION: Cataract extraction using phacoemulsification with posterior chamber intraocular lens implant, left eye. IOL: IOL Supervisor Shearing/Model: Imtiaz Clareon [id number] IOL Power: + 22.0 diopters IOL Serial Number: [id number] Optic Diameter: 6.0mm Haptic/Overall Diameter: 13.0mm PHACO INFO: ImtiazTipzuurion Vision System with OZil and Active Fluidics Cumulative Dispersed Energy (CDE): 9.57 seconds SURGEON: Eduar Abdul MD, MINDY ANESTHESIA: Monitored Anesthesia Care (MAC), with local sub-tenon's anesthetic infiltration COMPLICATIONS: None SPECIMENS: None INDICATIONS FOR PROCEDURE: The patient is an 81-year-old male with history of diminished visual acuity in his left eye secondary to the development of nuclear/posterior subcapsular cataract. He has previously undergone cataract surgery in the right eye in 2020. He now presents for cataract surgery in the left eye. PROCEDURE: The correct surgical eye was identified and marked as the left eye and the pupil was dilated in the preoperative area using mydriatics and cycloplegics. The dilated pupil size was 7.0 mm. The patient elected to proceed without oral sedation. The patient was brought to the operating room where cardiopulmonary monitoring was instituted and surgical time-out was performed, confirming the correct operative eye and IOL power. Topical anesthesia was administered and ophthalmic povidone-iodine 5% was instilled into the conjunctival fornices. Lidocaine gel was applied to the cornea and the miguel-ocular area was prepped with Betadine 10% solution and draped in the usual sterile fashion for intraocular surgery, including an aperture drape. A Tegaderm transparent film dressing was cut in half and used to cover the lashes and lid margins. Care was taken to sequester the lashes and lid margins under the Tegaderm dressing. A lid speculum was placed between the lids of the operative eye and the Imtiaz LuxOR Revalia operating microscope was maneuvered into position. Cristhian scissors were then used to make a conjunctival buttonhole approximately 6mm posterior to the limbus in the inferonasal quadrant. Blunt dissection was carried out to expose bare sclera, and a blunt-tipped sub-tenon?s anesthesia cannula was introduced and passed posteriorly along the globe where non- preserved plain lidocaine was injected into posterior sub-Tenon?s space. A sideport knife was used to make a paracentesis port superior/superiortemporally. Intraocular phenylephrine/lidocaine was injected into the anterior chamber. The anterior chamber was then filled with viscoelastic. A keratome knife was used construct a two-plane near-clear corneal tunnel extending 2.0mm into clear cornea in the temporal position. . A flap was raised on the anterior capsule and capsulorhexis forceps were used to complete a continuous curvilinear capsulorhexis of 5.0 mm. Balanced salt solution was then used to perform cortical cleaving hydrodissection and nuclear hydrodelineation until the lens could be freely rotated within the capsular bag. The lens nucleus was then disassembled and removed within the capsular bag and iris plane using phacoemulsification. Residual cortical material was removed using the 45-degree angled silicone I/A tip with 0.3mm port. The posterior capsule was carefully polished to remove as much residual lens epithelial cells as safely possible. The capsular bag was then inflated and the anterior chamber deepened with viscoelastic. The lens implant described above was inserted into the capsular bag using the Imtiaz Autonome Injector. A Kuglen hook was used to dial the IOL into position. Residual viscoelastic was then removed first from posterior to the IOL, then from the anterior chamber using the I/A handpiece. The lens implant was noted to center nicely within the capsular bag. The incisions were stromally hydrated, and the anterior chamber was reformed using BSS. Then 0.5cc of moxifloxacin 1.0mg/ml were injected into the capsular bag and anterior chamber. The incisions were checked with a Weck spear and found to be secure. Several drops of ophthalmic povidone-iodine 5% were then applied to the eye followed by two drops of Imprimis combination prednisolone/moxifloxacin/nepafenac solution. The drapes were removed and a clear plastic protective eye shield was placed over the eye. The patient was then returned to Same Day Surgery in stable condition.
[2022-04-19 08:00] VITALS: BP 158/83; PULSE 71; RESP 16; TEMP 36.2; O2SAT 98
--- NOTE | 2022-04-19 08:24 | W.ANESPOSTOP ---
Postoperative Evaluation Date, Time and Location Date Performed: 04/19/22 Time Performed: 08:00 Patient Location: Day Surgery Unit Vital Signs Most Recent Imported Vital Signs: Most Recent Vital Signs Temp Pulse Resp BP Pulse Ox 36.2 C L 71 16 158/83 H 98 04/19/22 08:00 04/19/22 08:00 04/19/22 08:00 04/19/22 08:00 04/19/22 08:00 Pain Score Most Recent Pain Score: Most Recent Pain Score Pain Level 0 04/19/22 08:00 Assessment Mental Status: Awake (Alert & Oriented to Patient Baseline) Airway and Respiratory Function: Patent airway with normal (patient baseline) respiratory exam Cardiovascular Function: Hemodynamically Stable Hydration Status: Adequately Hydrated Nausea & Vomiting: No Nausea or Vomiting Pain: Pt. Denies Any Pain Peripheral Nerve Block: Patient did not receive a nerve block
== END 2022-04-19 08:23 | disposition home or self-care (01) ==
LOC: SUR 06:23
PROVIDERS: PCP Student in an Organized Health Care Education/Training Program; Visit Provider Ophthalmology
PROC: (CPT 66984; principal; 2022-04-19 07:30)
DX: H25.812 Combined forms of age-related cataract, left eye (principal)
CPT/HCPCS: 66984; V2632

== ENCOUNTER 2022-04-27 11:26 | Emergency (ER) | payer MEDICARE, SELFPAY ==
[2022-04-27] VITALS (10 sets, daily range): BP systolic 107–150; BP diastolic 62–85; PULSE 88–112; RESP 17–24; TEMP 38.1; O2SAT 92–97
--- NOTE | 2022-04-27 11:15 | RT.EKG_ITS ---
APPROVED REPORT Exam: Resting ECG Reason for Exam: low b/p, weak Patient Location: E HR:104 bpm ECG Measurements Heart Rate 104 AXIS MI 245 P 12 QRSd 95 QRS -30 QT 316 T 63 QTc 416 Conclusion Sinus tachycardia...rate> 99 Prolonged MI interval...MI >215, V-rate 91-120 Left axis deviation...QRS axis (-30,-90)
--- NOTE | 2022-04-27 11:30 | DI.CT_ITS ---
Exam(s) CT HEAD WO EXAM: CT HEAD WO CLINICAL HISTORY: altered mental status. TECHNIQUE: Imaging Protocol: Axial computed tomography images with coronal and sagittal reformatted images were created and reviewed COMPARISON: No exams were available for comparison FINDINGS: The examination is limited due to patient motion artifact. Ventricles and Extra axial spaces: Normal in size and morphology for the patient's age. Hemorrhage: None. Cerebral parenchyma: There is no evidence of an acute territorial infarct. There are areas of decrea sed attenuation in the white matter consistent with small vessel ischemic disease. Midline shift: None. Brainstem/Cerebellum: Normal. Calvarium: Normal. Visualized Paranasal sinuses/Mastoids: Clear. Soft Tissues: Unremarkable. IMPRESSION: No acute intracranial process. RADIATION DOSE DELIVERED: 796.17mGy.cm Total DLP DATA REPOSITORY: All CT scans at this facility are submitted to the National Radiology Data Registry (NRDR) Dose Index Registry (DIR) with the [employer] (ACR). RADIATION OPTIMIZATION: All CT scans at this facility use at least one of these dose optimization te chniques: automated exposure control; mA and/or kV adjustment per patient size (includes targeted exa ms where dose is matched to clinical indication); or iterative reconstruction.
--- NOTE | 2022-04-27 11:45 | DI.RAD_ITS ---
Exam(s) XR CHEST 2V PA LATERAL EXAM: XR CHEST 2V PA LATERAL CLINICAL HISTORY: ?pneumonia TECHNIQUE: 2D digital imaging was performed of the chest. Two images were obtained. PA and lateral views were obtained. COMPARISON: CR,XR XR PORTABLE CHEST AP from 12/30/2019 FINDINGS: There is poor inspiration. MEDIASTINUM: Normal. HEART: Normal. PULMONARY VASCULATURE: Normal. LUNGS: There are increased interstitial markings in the lower lobes, right greater than left. This l ikely reflects poor inspiration rather than pneumonia. PLEURAL SPACE: No pleural effusion or pneumothorax. BONE:Within normal limits for the patient's age. OTHER FINDINGS:Normal. IMPRESSION: Poor inspiration with increased lung markings in the bases, right greater than left. This likely ref lects atelectasis due to poor inspiration over an early pneumonia. Please correlate clinically. DATA REPOSITORY: RADIATION DOSE DELIVERED:
--- NOTE | 2022-04-27 11:46 | ED.GENADUL_ITS ---
Discharge Plan Disposition Patient Disposition: Home Condition: Stable Discharge Details Clinical Impression: Disorientation, Flank pain Primary Care Provider: Elana Green ED Provider: Camilo Slaughter Home Meds and New Rx's Prescriptions: New levofloxacin 750 mg tablet 750 mg PO DAILY Qty: 5 0RF Continued lisinopril 40 mg tablet 20 mg PO DAILY Qty: 90 3RF metoprolol tartrate 25 mg tablet 12.5 mg PO DAILY Qty: 45 3RF spironolactone 25 mg tablet 25 mg PO DAILY Qty: 90 3RF Rx Instructions: Continue with afternoon lasix polyvinyl alcohol [Artificial Tears (polyvin alc)] 15 ML drops 1 drp Ophthalmic PRN PRN acetaminophen [Acetaminophen Extra Strength] 500 MG tablet 1,000 mg PO PRN PRN furosemide [Lasix] 20 mg tablet 20 mg PO BID Qty: 180 3RF Rx Instructions: For LE edema, hold 2nd dose for hypotension or dehydration rivaroxaban 10 mg tablet 10 mg PO DAILY Qty: 30 0RF Rx Instructions: [place] dose [place] [facility] [place]. Agree. Take with meals. 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 Reportedly went to bed in normal state but woke up this morning disoriented per the . HE arrives hemodynamically stable, is alert and awake, knows where he is and that he is at the ED. He doesn't know the year, and when asked some questions will just stare and not answer. HE is moving all extremities. His states that he is normally independent, sometimes will forget the time and has mild dementia but today seems worse. He is moving all extremities with good strength, cn ii-xii intact, clear speech when he is talking, clear lung sounds, no murmurs, soft nontender abdomen. Unc lear etiology for his symptoms, will proceed with ct head to evaluate for possible sdh, he has no deficits on exam to suggest cva no focal deficits and woke up with his symptoms so not a lytic candidate. Will also check cbc, cmp, ua, cxr and fluvid Pt stable and now conversant caox4, no complaints. He does have a wbc of 14, ua pending, will add abd/pelvis to evaluate for possible kidney stone while ua pending as he has had some intermittent right lower back pain. labs and imaging unremarkable, ua unremarkable, xray read as atelectasis vs pneumonia at the right lower lobe. He has not had a cough, in triage ttemp was 38.1 but was wearing a hat, no fevers at home. HE declines to have observation admission and given he is at his baseline mental status belle, caox4 feel this is reasonable. Will start on levofloxacin though not clear if this is pneumonia. He has f/u this week with his pcp, return precautions given Medical Records Medical records reviewed: Yes I reviewed the patient's medical records. Imaging Data Radiologic Study: Attestation: I personally reviewed and interpreted this imaging study as follows: Imaging: CT Scan Radiologist's impression: PROCEDURE INFORMATION: Exam: CT Head Without Contrast Exam date and time: 04/27/2022 1:00 PM Age: 81 years old Clinical indication: Altered mental status/memory loss TECHNIQUE: Imaging protocol: Computed tomography of the head without contrast. COMPARISON: No relevant prior studies available. FINDINGS: Brain: No intracranial hemorrhage. Bilateral periventricular white matter hypodensity consistent with small-vessel ischemic change. No evidence of large vessel territory infarct. No mass or mass effect. Cerebral ventricles: Ventricles and sulci are appropriate for age. Paranasal sinuses: Visualized sinu ses are unremarkable. No fluid levels. Mastoid air cells: Visualized mastoid air cells are well aerated. Bones/joints: Unremarkable. No acute fracture. Soft tissues: Unremarkable. IMPRESSION: No acute intracranial abnormality. Radiologic Study #2: Attestation: I personally reviewed and interpreted this imaging study as follows: Imaging: X-Ray Radiologist's impression: MPRESSION: Hypoventilation with accentuated interstitial markings in the lower lung zones favoring the right lower lobe. Favor mild pulmonary edema/atelectasis over an early pneumonia in the right lower lobe Radiologic Study #3: Attestation: I personally reviewed and interpreted this imaging study as follows: Imaging: CT Scan Radiologist's impression: IMPRESSION: 1. No acute findings. 2. Nonobstructing left renal calculi. 3. Moderate degenerative changes of the lumbar spine with areas of spinal stenosis and neural foraminal narrowing. Could this be the source of the patient's pain? 4. [id number]-[id number] atherosclerotic peripheral vascular disease. Lab Data Lab results reviewed: Yes I reviewed the patient's lab results. ECG Data Attestation: I personally reviewed and interpreted this ECG (s) as follows: Prior ECG tracings: available for review Interpretation: sinus tachycardia rate of 104, pr 245, no acute ischemic findings HPI General Mode of arrival: wheelchair . Date/Time Provider Initiated Documentation: 04/27/22 11:26 . Information obtained by: patient and family . History of Present Illness 81 year old M presents to the emergency department with the chief complaint of altered mental status, described as moderate, Patient started experiencing this unknown and it has been constant. No relieving factors improve symptom(s), No exacerbating factors reported . Patient notes denies chest pain and fever/chills. Patient did receive the following treatments prior to arrival, none Related Data Home Medications Medication Instructions Recorded Confirmed acetaminophen 500 mg tablet 1,000 mg PO PRN PRN 06/11/12 04/27/22 (Acetaminophen Extra Strength) polyvinyl alcohol 1.4 % eye drops 1 drp ophthalmic (eye) PRN PRN 06/11/12 04/27/22 (Artificial Tears (polyvinyl alcohol)) lisinopril 40 mg tablet 20 mg PO DAILY #90 tabs 06/14/21 04/27/22 metoprolol tartrate 25 mg tablet 12.5 mg PO DAILY #45 tabs 01/08/22 04/27/22 spironolactone 25 mg tablet 25 mg PO DAILY edema #90 tabs 01/08/22 04/27/22 furosemide 20 mg tablet (Lasix) 20 mg PO BID #180 tabs 01/19/22 04/27/22 rivaroxaban 10 mg tablet 10 mg PO DAILY #30 tabs 04/08/22 04/27/22 levofloxacin 750 mg tablet 750 mg PO DAILY #5 tabs 04/27/22 Previous Rx's Medication Instructions Recorded lisinopril 40 mg tablet 20 mg PO DAILY #90 tabs 06/14/21 metoprolol tartrate 25 mg tablet 12.5 mg PO DAILY #45 tabs 01/08/22 spironolactone 25 mg tablet 25 mg PO DAILY edema #90 tabs 01/08/22 furosemide 20 mg tablet (Lasix) 20 mg PO BID #180 tabs 01/19/22 rivaroxaban 10 mg tablet 10 mg PO DAILY #30 tabs 04/08/22 levofloxacin 750 mg tablet 750 mg PO DAILY #5 tabs 04/27/22 Allergies Allergy/AdvReac Type Severity Reaction Status Date / Time amlodipine AdvReac Mild nightmares/restless Verified 04/27/22 11:35 sleep hydrochlorothiazide AdvReac Mild possible Verified 04/27/22 11:35 Erectile dysfunction finasteride AdvReac Hypertensio Verified 04/27/22 11:35 n General Stated Complaint: Dizzy/Sync THALIA: 2 Review of Systems All systems reviewed & are unremarkable except as noted in HPI and below Constitutional Constitutional: Denies chills and Denies fever(s) Cardiovascular Cardiovascular: Denies chest pain and Denies dyspnea Respiratory Respiratory: Denies cough and Denies dyspnea Gastrointestinal Gastrointestinal: Denies nausea and Denies vomiting Integumentary/Breasts Skin/Breast: Denies rash PFSH All Active Problems (Updated 04/27/22 @ 14:26 by Camilo Slaughter MD) Disorientation (Acute) Flank pain (Acute) BPH w/o urinary obs/LUTS (Chronic 02/15/11) nocturiaX1-2; INCR 3X 09/2012 Hyperlipidemia (Chronic 10/24/04) RISK 12% 11/2005; LDL goal 100 Need labs, [ ] Fall 201807/01/18 Impotence, 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 denies this stated that this was due to an interaction a year ago where having the masks on and he his hard of hearing they stated he had dementia which his and current PCP stated he does not. 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 Xarelto started. Resolved, Eliquis D/C'd 07/2020 by Surg. HTN (hypertension) (Chronic) Left knee pain (Acute) Acute on chronic. Not a surgical candidate. Cane helping - may need training.. Leg edema (Acute) Worsening, re-start furosemide, 10/2020 Osteoarthritis of left knee (Acute) Steroid injection: 12/07/2020 Edema (Acute) b/l general .. trial compression and lasix Bakers cyst (Acute) Rt, 4cm.. incidental finding on US Renal insufficiency (Chronic) becoming CKD, Stage 2-3.. 07/2021 custodial (current) use of anticoagulants (Acute) Lumbar adjacent segment disease with spondylolisthesis (Acute) Lumbar back pain (Acute) Lumbar spondylosis (Acute) Medical History (Updated 04/27/22 @ 14:26 by Camilo Slaughter MD) Benign hypertension (12/09/05) <140/85; BP was high at time of colonoscopy so Dr. Taylor started him on HCTZ 2005. High BP readings @ ophtho, urol . turns out to be 2' finesteride, Dr. Smallwood d/c'd .. will follow up in July 2018. 125/85 today, 06/2018, ik. C. difficile colitis RX Vanco Gallstone pancreatitis Surgical History (Updated 04/19/22 @ 07:57 by Eduar Abdul MD) Arthroscopy (02/10/84) in CT, Left knee Hx of cataract removal with insertion of prosthetic lens 12/11/20 [place], [facility] S/P cholecystectomy (01/24/20) S/P ERCP Family History Son Age: 60 No problems noted. 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 [employer] Current gender identity: male What type of physical activity do you participate in: none Working smoke detector in home: Yes Fire extinguisher in home: Yes Carbon monox detector in home: Yes Do you feel safe at home: Yes Additional Social history: unable to assess privately Exam Const General: no acute distress Orientation: alert HENMT Head: normal to inspection Ears: external ears normal General nose exam: external nose normal Mouth: moist mucous membranes Eyes General: appearance normal, both eyes and all related structures Neck Neck: normal visual inspection Resp Effort & Inspection: normal respiratory effort and able to speak in complete sentences Cardio Rate: regular rate GI Palpation: soft and nontender Skin General skin exam: no rashes or lesions noted Neuro General: patient alert Extrem General: normal to inspection Course Vital Signs Vital signs: Vital Signs Temperature 38.1 C H 04/27/22 11:30 Temperature 38.1 C H 04/27/22 11:30 Temperature Source Oral 04/27/22 11:30 Pulse 88 04/27/22 11:34 Respiratory Rate 18 04/27/22 11:34 Respiratory Effort Normal, Non-Labored 04/27/22 11:34 Blood Pressure 107/62 04/27/22 11:34
[2022-04-27 12:01] LABS: Abs Immature Grans 0.14 10^3/uL (0.0-0.06); Absolute Basophil Count 0.06 10^3/uL (0.0-0.2); Absolute Eosinophil Count 0.01 10^3/uL (0.0-0.7); Absolute Monocyte Count 1.12 10^3/uL (0.1-0.8); Basophils % 0.4; Eosinophils % 0.1; HCT 43.8 % (40.0-50.0); HGB 14.1 g/dL (13.5-17.5); Lymphocytes % 5.4; MCH 28.6 pg (27.0-33.0); MCHC 32.2 % (32.0-36.0); MCV 89 fL (80-95); MPV 9.3 fL (8.0-11.0); Monocytes % 7.8; Neutrophils % 85.3; Platelet Count 169 10^3/uL (130-400); RBC 4.93 10^6/uL (4.36-5.78); RDW 13.6 % (11.8-14.1); RDW-SD 44.8 fL; WBC 14.37 10^3/uL (4.4-10.8)
[2022-04-27 12:02] LABS: Absolute Lymphocyte Count 0.78 10^3/uL (1.2-3.4); Absolute Neutrophil Count 12.26 10^3/uL (1.2-6.7)
--- NOTE | 2022-04-27 12:15 | DI.CT_ITS ---
Exam(s) CT ABDOMEN PELVIS WO EXAM: CT ABDOMEN PELVIS WO CLINICAL HISTORY: ?kidney stone. TECHNIQUE: Imaging Protocol: Axial computed tomography images with coronal and sagittal reformatted images were created and reviewed. COMPARISON: CT CT ABDOMEN PELVIS W from 09/03/[address] ABDOMEN PELVIS WO from 12/30/2019 FINDINGS: The examination is limited due to patient motion artifact. ABDOMEN: Lung Bases: Normal where visualized. Liver: Normal density. There is a stable hypodensity in the liver. Gallbladder and biliary tract: Status post cholecystectomy. No biliary ductal dilatation. Pancreas: Normal density, no abnormal calcifications or inflammatory process. Spleen: Normal. Kidneys: Normal size, contour and axis.There is left nephrolithiasis. No ureterolithiasis is present . No masses seen. Adrenal glands: No mass is seen. Lymph nodes: Within normal limits. Abdominal Aorta: Abdominal portion non-dilated. PELVIS: Bladder:There is a 3 mm stone in the urinary bladder. This may represent a recently passed stone. Bowel: No obstruction or bowel wall thickening. Appendix is unremarkable. Peritoneal cavity: No ascites, collection or mesenteric inflammatory response. No free air. Reproductive organs: Unremarkable as visualized. Bones: Within normal limits. Soft Tissues: Within normal limits. IMPRESSION: 1. 3 mm stone in the urinary bladder which may represent a recently passed stone. 2. Left nephrolithiasis. RADIATION DOSE DELIVERED: 1,516.78mGy.cm Total DLP DATA REPOSITORY: All CT scans at this facility are submitted to the National Radiology Data Registry (NRDR) Dose Index Registry (DIR) with the [employer] (ACR). RADIATION OPTIMIZATION: All CT scans at this facility use at least one of these dose optimization te chniques: automated exposure control; mA and/or kV adjustment per patient size (includes targeted exa ms where dose is matched to clinical indication); or iterative reconstruction.
[2022-04-27 12:17] LABS: INR 1.1 (0.9-1.1); PTT Activated 25.3 sec (21.5-31.9); Prothrombin Time 10.8 sec (9.3-11.0)
[2022-04-27] MEDS: Normal Saline 1,000 ML 1000 ML IV (12:25)
[2022-04-27 12:26] LABS: ALT 24 U/L (16-63); AST 11 U/L (15-37); Albumin 3.5 g/dL (3.4-5.0); Alkaline Phosphatase 68 U/L (46-116); Anion Gap 6.5 mmol/L (3-11); BUN 46 mg/dL (7-18); Bilirubin, Total 0.8 mg/dL (0.2-1.0); CO2 27.5 mmol/L (21.0-32.0); CREATININE 1.9 mg/dL (0.70-1.30); Calcium 10.2 mg/dL (8.5-10.1); Chloride 105 mmol/L (98-107); Creatine Kinase 30 U/L (39-308); Estimated GFR 34.79 (mL/min/1.73m2); Glucose 150 mg/dL (74-106); Magnesium 1.8 mg/dL (1.8-2.4); Potassium 4.9 mmol/L (3.5-5.1); Sodium 139 mmol/L (136-145); TSH (W/Ref FT4) 0.58 uIU/mL (0.36-3.74); Total Protein 7.5 g/dL (6.4-8.2)
[2022-04-27 12:33] LABS: Procalcitonin 0.1 ng/mL
[2022-04-27 12:42] LABS: COVID-19 PCR Negative (Negative); Influenza A PCR Negative (Negative); Influenza B PCR Negative (Negative); RSV PCR Negative (Negative)
[2022-04-27 13:21] LABS: Bilirubin Negative (Negative); Blood Small (Negative); Clarity Clear (Clear); Glucose Negative (Negative); Ketones Negative (Negative); Leukocyte Esterase Negative (Negative); Nitrite Negative (Negative); Specific Gravity 1.025 (1.005-1.025); Urobilinogen 0.2 mg/dL (Up to 0.2); pH 5.5 (5-8)
[2022-04-27 13:33] LABS: Bacteria Negative HPF (Negative); C & S Indicated? No; Casts Negative LPF (Negative); Crystals Negative HPF (Negative); Epithelial Cells Rare HPF (Negative); Mucus Negative (Negative); WBC Negative HPF (0-5)
--- NOTE | 2022-04-27 13:52 | DI.VRAD_ITS ---
PROCEDURE INFORMATION: Exam: CT Abdomen And Pelvis Without Contrast Exam date and time: 04/27/2022 1:03 PM Age: 81 years old Clinical indication: Other: Flank pain TECHNIQUE: Imaging protocol: Computed tomography of the abdomen and pelvis without contrast. COMPARISON: CT ABDOMEN PELVIS WO 12/30/2019 6:08 PM FINDINGS: Liver: Unchanged 3 cm cyst in segment II. The liver is heterogeneous attenuation. There are no other cysts or masses. Gallbladder and bile ducts: There has been a cholecystectomy. Pancreas: Normal. No ductal dilation. Spleen: The spleen is normal. Adrenal glands: The adrenal glands are normal. Kidneys and ureters: 0.8 cm nonobstructing calculi within left renal collecting system. No hydroureter or hydronephrosis. Renal cortex is normal in thickness. Focal area of stranding superior to the right kidney shows no significant change from the prior examination. Stomach and bowel: Unremarkable. No obstruction. No mucosal thickening. Appendix: A normal appendix is identified. Intraperitoneal space: Unremarkable. No free air. No significant fluid collection. Vasculature: The vasculature demonstrates diffuse atea-ut-vluibhlf atherosclerotic calcification. No abdominal aortic aneurysm. Lymph nodes: Unremarkable. No enlarged lymph nodes. Urinary bladder: Unremarkable as visualized. Reproductive: Unremarkable as visualized. Bones/joints: The spine demonstrates moderate degenerative changes at multiple levels. Mild spinal stenosis L3-L4 and severe spinal stenosis L4-L5. There is bilateral neural foraminal narrowing L2-L5. Soft tissues: Unremarkable. IMPRESSION: 1. No acute findings. 2. Nonobstructing left renal calculi. 3. Moderate degenerative changes of the lumbar spine with areas of spinal stenosis and neural foraminal narrowing. Could this be the source of the patient's pain? 4. [id number]-[id number] atherosclerotic peripheral vascular disease. Dictated and Authenticated by: Willem Maurer MD. Ordering:STEVEN Page MD
--- NOTE | 2022-04-27 13:54 | DI.VRAD_ITS ---
PROCEDURE INFORMATION: Exam: XR Chest Exam date and time: 04/27/2022 1:08 PM Age: 81 years old Clinical indication: Shortness of breath TECHNIQUE: Imaging protocol: Radiologic exam of the chest. Views: 2 views. COMPARISON: CR XR PORTABLE CHEST AP 12/30/2019 3:33 PM FINDINGS: Lungs: The lung volumes are diminished. There is accentuation of the interstitial markings that could be normal full inspiration. Excluding pulmonary edema or early infiltrate in the right lower lobe is not possible. Pleural spaces: Unremarkable. No pleural effusion. No pneumothorax. Heart/Mediastinum: Mild biventricular cardiac enlargement. The aorta is normal in diameter. Bones/joints: Unremarkable. IMPRESSION: Hypoventilation with accentuated interstitial markings in the lower lung zones favoring the right lower lobe. Favor mild pulmonary edema/atelectasis over an early pneumonia in the right lower lobe. Dictated and Authenticated by: Willem Maurer MD. Ordering:STEVEN Page MD
--- NOTE | 2022-04-27 14:04 | DI.VRAD_ITS ---
PROCEDURE INFORMATION: Exam: CT Head Without Contrast Exam date and time: 04/27/2022 1:00 PM Age: 81 years old Clinical indication: Altered mental status/memory loss TECHNIQUE: Imaging protocol: Computed tomography of the head without contrast. COMPARISON: No relevant prior studies available. FINDINGS: Brain: No intracranial hemorrhage. Bilateral periventricular white matter hypodensity consistent with small-vessel ischemic change. No evidence of large vessel territory infarct. No mass or mass effect. Cerebral ventricles: Ventricles and sulci are appropriate for age. Paranasal sinuses: Visualized sinuses are unremarkable. No fluid levels. Mastoid air cells: Visualized mastoid air cells are well aerated. Bones/joints: Unremarkable. No acute fracture. Soft tissues: Unremarkable. IMPRESSION: No acute intracranial abnormality. Dictated and Authenticated by: Deng Vasquez MD. Ordering:STEVEN Page MD
[2022-04-27] MEDS: levoFLOXacin 500 MG, levoFLOXacin 250 MG 750 MG PO (14:25)
--- NOTE | 2022-04-28 09:30 | NUR.NOTE ---
Nursing Note:Accessed patient chart to determine how many EKG orders were in the chart from the ED. There was an outstanding EKG in ordered status. There are no EKG's in the [facility] system that are outstanding. EKG order was deleted.
== END 2022-04-27 14:37 | disposition home or self-care (01) ==
PROVIDERS: Emergency Provider Emergency Medicine; PCP Student in an Organized Health Care Education/Training Program
DX: R41.0 Disorientation, unspecified (principal); R10.9 Unspecified abdominal pain; I12.9 Hypertensive chronic kidney disease with stage 1 through stage 4 chronic kidney disease, or unspecified chronic kidney disease; N18.9 Chronic kidney disease, unspecified; Z86.718 Personal history of other venous thrombosis and embolism; Z79.01 Long term (current) use of anticoagulants; F03.90 Unspecified dementia, unspecified severity, without behavioral disturbance, psychotic disturbance, mood disturbance, and anxiety
CPT/HCPCS: 36415; 80053; 82550; 84145; 87637; 93005; 96360; 96361; 99284; 99285; 70450; 71046; 74176; 81003; 81015; 83735; 84443; 85025; 85610; 85730; 93010

== ENCOUNTER 2022-05-22 03:09 | Outpatient (CLI) | payer MEDICARE, SELFPAY ==
[2022-05-22 12:47] LABS: Anion Gap 5.9 mmol/L (3-11); BUN 46 mg/dL (7-18); CO2 28.1 mmol/L (21.0-32.0); CREATININE 1.7 mg/dL (0.70-1.30); Calcium 10.1 mg/dL (8.5-10.1); Chloride 108 mmol/L (98-107); Estimated GFR 39.75 (mL/min/1.73m2); Glucose 125 mg/dL (74-106); Potassium 4.2 mmol/L (3.5-5.1); Sodium 142 mmol/L (136-145)
== END 2022-05-22 03:10 | disposition home or self-care (01) ==
LOC: LOS 03:09
PROVIDERS: PCP Student in an Organized Health Care Education/Training Program; Visit Provider Student in an Organized Health Care Education/Training Program
DX: R73.09 Other abnormal glucose (principal); E86.0 Dehydration; N28.89 Other specified disorders of kidney and ureter
CPT/HCPCS: 36415; 80048; 83036

== ENCOUNTER 2022-06-26 10:14 | Outpatient (CLI) | payer MEDICARE, SELFPAY ==
--- NOTE | 2022-06-26 06:00 | DI.RAD_ITS ---
Exam(s) XR PAIN CLINIC FLUORO JOINT IN EXAM: XR PAIN CLINIC FLUORO JOINT IN CLINICAL HISTORY: Dx: Osteoarthritis of the knee. TECHNIQUE: Fluoroscopy was provided for the referring physician for guidance with performing pain cl inic injection procedure. COMPARISON: No exams were available for comparison FINDINGS: Please see procedure note for details. Fluoro time: 33 seconds RADIATION DOSE DELIVERED: deja Briones=3.66 mGy
[2022-06-26 11:00] VITALS: BP 145/81; PULSE 83; RESP 20; TEMP 36.5; O2SAT 95
[2022-06-26] MEDS: Bupivacaine 0.5% Pres-Free 10 ML VIAL IJ (11:46)
--- NOTE | 2022-06-26 11:50 | PDOC.PAIN_ITS ---
Date of service: 06/26/22 Time of Service: 11:53 Pain Managment Procedure Note Procedure Note Procedure Note: LEFT GENICULAR NERVE BLOCK Date of Service: June 26, 2022 Patient: Raffy Mobley Provider: Ricardo Black DO, MPH Pre-operative diagnosis: Knee pain Post-operative diagnosis: Same Pre-procedure pain: VAS= 10/10 COMMENTS: He was seen in our clinic by Dr. Lomeli on 03/18/2022 Raffy Mobley has been referred to the [facility] for LEFT genicular nerve block. Raffy was interviewed and the medical record reviewed. There were no medical, pharmacologic, radiographic or other structural contraindications to attempting fluoroscopically guided LEFT genicular nerve block. Risks and potential side effects as well as potential benefit of the procedure were reviewed with Raffy , and HIS voiced concerns were addressed. After I believed that the patient was completely informed, the printed consent form was signed. Standard time-out procedure was performed. Raffy was placed in the supine position on the fluoroscopy table and automated blood pressure cuff and pulse oximeter applied. The skin entry points for approaching LEFT superolateral genicular nerve, the superomedial genicular nerve, the suprapatellar branch, the terminal branch of the nerve vastus intermedius and the inferomedial genicular was identified under the most advantageous fluoroscopic view and marked. Following thorough Chlorhexadine preparation of the skin and draping, 1% lidocaine infiltration of the skin entry point and subcutaneous tissues was accomplished using a 1.5 25G needle. Next, the 3.5 25G spinal needle was advanced to os at the location of the specific nerve root using fluoroscopic guidance. Next, 1 ml of 1% Lidocaine was injected at each site. The needles were removed without difficulty. Raffy's vital signs were stable throughout the procedure and were as recorded in the docflowsheet by the nursing staff. If given, dosages of intravenous drugs for anxiolysis and analgesia were documented in MAR. Follow up plans and appointments were discussed with the Raffy . Post procedure instruction was given as documented in nursing documentation and having met discharge criteria, Raffy was discharged from the [facility]. COMMENTS: No apparent complications. Post-procedure pain: VAS = 0/10. The patient will keep track of her LEFT knee pain over the next four hours. If Raffy has sufficient pain relief, Raffy will be a candidate for radiofrequency ablation at the same nerves. Edouard WJ1, Maurice SJ, Constantin JG, Huber JG, Prasad VYAS, Park PH, Shepherd JW. Radiofrequency treatment relieves chronic knee osteoarthritis pain: a double-blind randomized controlled trial. Pain. 2011 Apr;152(3):481-7. doi: 10.1016/j.pain.2010.09.029. Jannet S1, Avel ON2, Nikita Y3, ?zl?lerden P2, Asael U1, Taz ?m?rl? I. Which one is more effective for the clinical treatment of chronic pain in knee osteoarthritis: radiofrequency neurotomy of the genicular nerves or intra- articular injection? Int J Rheum Dis. 2016 Sep 21. F/U with our office by phone with his 1-4 hour pain scale levels. I personally performed this entire procedure. Ricardo Black DO, MPH [facility]
[2022-06-26] MEDS: Omnipaque 240 MG/ML 50 ML BTL IJ (11:56)
[2022-06-26 12:10] VITALS: PULSE 78; O2SAT 98
== END 2022-06-26 10:15 | disposition home or self-care (01) ==
LOC: PC 10:15
PROVIDERS: PCP Student in an Organized Health Care Education/Training Program; Visit Provider Preventive Medicine Occupational Medicine
DX: M25.562 Pain in left knee (principal)
CPT/HCPCS: 64454; 77002; Q9967

== ENCOUNTER 2022-07-17 13:37 | Outpatient (REF) | payer MEDICARE, SELFPAY ==
[2022-07-17 14:28] LABS: Bilirubin Negative (Negative); Blood Small (Negative); Clarity Clear (Clear); Glucose Negative (Negative); Ketones Negative (Negative); Leukocyte Esterase Negative (Negative); Nitrite Negative (Negative); Urobilinogen 0.2 mg/dL (Up to 0.2)
[2022-07-17 14:42] LABS: Bacteria Negative HPF (Negative); C & S Indicated? No; Casts Negative LPF (Negative); Crystals Negative HPF (Negative); Epithelial Cells Few HPF (Negative); Mucus Negative (Negative); RBC 0-2 HPF (0-2); WBC 0-2 HPF (0-5)
== END 2022-07-17 13:38 | disposition home or self-care (01) ==
LOC: LBN 13:37
PROVIDERS: PCP Student in an Organized Health Care Education/Training Program; Visit Provider Physician Assistant
DX: R39.15 Urgency of urination (principal); R35.0 Frequency of micturition; N39.0 Urinary tract infection, site not specified
CPT/HCPCS: 81003; 81015

== ENCOUNTER 2022-07-30 03:31 | Outpatient (CLI) | payer MEDICARE, SELFPAY ==
[2022-07-30 12:27] LABS: Anion Gap 7.2 mmol/L (3-11); BUN 39 mg/dL (7-18); CO2 26.8 mmol/L (21.0-32.0); CREATININE 1.6 mg/dL (0.70-1.30); Chloride 109 mmol/L (98-107); Estimated GFR 42.75 (mL/min/1.73m2); Glucose 115 mg/dL (74-106); Potassium 4.3 mmol/L (3.5-5.1); Sodium 143 mmol/L (136-145)
[2022-07-30 12:53] LABS: Calcium 9.8 mg/dL (8.5-10.1)
== END 2022-07-30 03:32 | disposition home or self-care (01) ==
LOC: LOS 03:31
PROVIDERS: PCP Student in an Organized Health Care Education/Training Program; Visit Provider Student in an Organized Health Care Education/Training Program
DX: E86.0 Dehydration (principal); Z91.89 Other specified personal risk factors, not elsewhere classified; R79.89 Other specified abnormal findings of blood chemistry
CPT/HCPCS: 36415; 80048; 83735

== ENCOUNTER 2022-08-23 01:36 | Outpatient (CLI) | payer MEDICARE, SELFPAY ==
[2022-08-23 12:17] LABS: Abs Immature Grans 0.05 10^3/uL (0.0-0.06); Absolute Basophil Count 0.05 10^3/uL (0.0-0.2); Absolute Eosinophil Count 0.09 10^3/uL (0.0-0.7); Absolute Lymphocyte Count 1.58 10^3/uL (1.2-3.4); Absolute Monocyte Count 0.74 10^3/uL (0.1-0.8); Absolute Neutrophil Count 4.58 10^3/uL (1.2-6.7); Basophils % 0.7; Eosinophils % 1.3; HCT 42.9 % (40.0-50.0); HGB 14.1 g/dL (13.5-17.5); Immature Grans % 0.7; Lymphocytes % 22.3; MCHC 32.9 % (32.0-36.0); MCV 88 fL (80-95); MPV 10.3 fL (8.0-11.0); Monocytes % 10.4; Neutrophils % 64.6; Platelet Count 146 10^3/uL (130-400); RBC 4.86 10^6/uL (4.36-5.78); RDW 13.6 % (11.8-14.1); RDW-SD 43.8 fL; WBC 7.09 10^3/uL (4.4-10.8)
[2022-08-23 12:33] LABS: Anion Gap 7.6 mmol/L (3-11); BUN 38 mg/dL (7-18); CO2 28.4 mmol/L (21.0-32.0); CREATININE 1.6 mg/dL (0.70-1.30); Calcium 9.8 mg/dL (8.5-10.1); Chloride 108 mmol/L (98-107); Estimated GFR 42.75 (mL/min/1.73m2); Glucose 116 mg/dL (74-106); Magnesium 2.1 mg/dL (1.8-2.4); Potassium 4.3 mmol/L (3.5-5.1); Sodium 144 mmol/L (136-145)
== END 2022-08-23 01:37 | disposition home or self-care (01) ==
LOC: LOS 01:36
PROVIDERS: PCP Student in an Organized Health Care Education/Training Program; Visit Provider Student in an Organized Health Care Education/Training Program
DX: I10 Essential (primary) hypertension (principal); R60.0 Localized edema; N17.9 Acute kidney failure, unspecified; R35.0 Frequency of micturition
CPT/HCPCS: 36415; 80048; 83735; 85025

== ENCOUNTER → 2022-09-11 10:04 | Outpatient (BNVA) | payer MEDICARE, SELFPAY | PROVIDERS: PCP Student in an Organized Health Care Education/Training Program; Visit Provider Nurse Practitioner Gerontology | DX: N40.1 Benign prostatic hyperplasia with lower urinary tract symptoms (principal); R39.89 Other symptoms and signs involving the genitourinary system; I10 Essential (primary) hypertension | CPT/HCPCS: 51798; 99213 ==

== ENCOUNTER 2022-09-16 09:14 | Inpatient (IN) | payer MEDICARE, SELFPAY ==
[2022-09-16] VITALS (22 sets, daily range): BP systolic 101–158; BP diastolic 65–97; PULSE 70–96; RESP 13–24; TEMP 36–37.2; O2SAT 87–98
--- NOTE | 2022-09-16 | DI.US_ITS ---
APPROVED REPORT EXAM: Comprehensive 2D, Doppler, and color-flow Echocardiogram Patient Location: ER Room/Bed: 4 Creative Services Coordinator: Anisa Chairez RDCS (AE) Indications: CHF, Evaluate LV and RV Other Information Study Quality: Fair. Technically limited study due to body habitus, inability to position patient exa m done supine in the er. Conclusion Normal left ventricular wall thickness and chamber size. Ejection fraction is 55%. Wall motion appe ars normal Right ventricle is not well visualized but does not appear enlarged Normal left and right atrial size Aortic valve is sclerotic without stenosis or regurgitation Mild mitral annular calcification, trace mitral regurgitation Estimated right ventricular systolic pressure is 18 mmHg Mildly dilated ascending aorta measuring 3.54 cm Wall motion Left Ventricle The left ventricle is normal size. The overall left ventricular systolic function appears normal. [place] hnically limited imaging, unable to position patient. There is normal left ventricular wall thickness . Regional wall motion is grossly normal. There is no ventricular septal defect visualized. LVEF is 5 5%. Right Ventricle Right ventricle is not well visualized. Right ventricular systolic function could not be assessed. Atria The left atrium size is grossly normal. The right atrium size is grossly normal. The interatrial sept um is intact with no evidence for an atrial septal defect. Aortic Valve The Aortic valve is sclerotic. Number of aortic valve leaflets could not be assessed. There is no ao rtic valvular stenosis. No aortic regurgitation is present. Mitral Valve Mild mitral annular calcification. No evidence of mitral valve stenosis. Trace mitral regurgitation. Tricuspid Valve The tricuspid valve is normal in structure. There is no tricuspid valve stenosis. Trace to mild tricu spid regurgitation. The RVSP is 18..0mmHg. Pulmonic Valve The pulmonary valve is normal in structure. There is no pulmonic valvular stenosis. Trace pulmonic re gurgitation. Great Vessels The aortic root is normal in size. The ascending aorta is mildly dilated. Aortic arch is not well vis ualized. IVC is normal in size and collapses >50% with inspiration. Pericardium There is no pericardial effusion. 2D Dimensions IVSD d PLAX 1.12 cm M: 0.6-1.2 LVPW d PLAX 1.06 cm M: 0.6 - 1.2 LVID d PLAX 4.82 cm M: 4.2 - 5.8 LVDs 3.55 cm M: 2.5 - 4.0 Ao Root d 3.33 cm M: 3.1 - 3.7 Ao Asc Diam d 3.54 cm M: 2.6 - 3.4 LV EF Darrell 51.3 % FS 26.20 % LV Diastology LV E/e MED 0.08 (<14) E/A Ratio 0.5 LV E/e LAT 0.08 (<14) MV E Vmax 0.43 (0.4-1.3 m/s) MV A Vmax 0.80 (0.4-1.3 m/s) Aortic Valve LVOT Vmax 0.98 m/s LVOT Peak Grad 3.9 mmHg LVOT Mean Grad 2.4 mmHg LVOT Diam s 2.00 cm AoV Vmax 1.74 m/s Velocity Ratio 0.56 AoV Peak Grad 12.1 mmHg LVOT SV 60.10 mL AoV Mean Grad 6.2 mmHg AoV Area VTI 1.68 cm2 Mitral Valve MV DT 240 (160-240 msec) MV Vmax TIPS 1.01 m/s MV Mean Grad 1.9 (<2mmHg) MV VTI 0.279 m Pulmonary Valve PV Mean Grad 1.8 mmHg RVOT Peak Gr. 1.73 mmHg RVOT Mean Gr. 0.85 mmHg RVOT VTI 0.130 m RVOT Vmax 0.66 m/s Tricuspid Valve TR Peak Grad 15.0 mmHg TR Vmax 1.94 m/s RA Pressure 3.00 mmHg RVSP (TR) 18.0 mmHg
--- NOTE | 2022-09-16 09:15 | RT.EKG_ITS ---
APPROVED REPORT Exam: Resting ECG Reason for Exam: shortness of breath Patient Location: E HR:88 bpm ECG Measurements Heart Rate 88 AXIS LA [id number] P [id number] QRSd 95 QRS -27 QT 364 T 32 QTc 440 Conclusion Atrial flutter with predominant 3:1 AV block...A-rate 263, multiple Ps Inferior infarct, old...Q >35mS, II III aVF
--- NOTE | 2022-09-16 09:50 | ED.GENADUL_ITS ---
Discharge Plan Disposition Patient Disposition: Admit to [facility] Condition: Serious Discharge Details Chief Complaint: SOB Clinical Impression: Acute exacerbation of congestive heart failure Primary Care Provider: Elana Green ED Provider: David Pollard Home Meds and New Rx's Prescriptions: No Action (DME) IV Fluids See Rx Instructions .Route .MEDSUPPLY Qty: 500 0RF Rx Instructions: IVFluids NS, 500cc, over 1-2 hours with BP Check 2' Dehydration per 's report (d/w PCP) metoprolol tartrate 25 mg tablet 12.5 mg PO DAILY Qty: 45 3RF spironolactone 25 mg tablet 25 mg PO DAILY Qty: 90 3RF Hold Instructions: diuretics on hold 2' ckd,uti Rx Instructions: Continue with afternoon lasix polyvinyl alcohol [Artificial Tears (polyvin alc)] 15 ML drops 1 drp Ophthalmic PRN PRN acetaminophen [Acetaminophen Extra Strength] 500 MG tablet 1,000 mg PO PRN PRN furosemide [Lasix] 20 mg tablet 20 mg PO BID Qty: 180 3RF Hold Instructions: diuretics on hold 2' ckd,uti Rx Instructions: For LE edema, hold 2nd dose for hypotension or dehydration rivaroxaban 10 mg tablet 10 mg PO DAILY Qty: 30 0RF Rx Instructions: [place] dose [place] [facility] [place]. Agree. Take with meals. lisinopril 40 mg tablet 20 mg PO DAILY Qty: 90 3RF Medical Decision Making 955 --81-year-old male with multiple medical problems including history of chronic kidney disease, chronic intermittent peripheral edema, hypertension, here with increasing cough over the past couple days, productive of clear sputum, dyspnea on exertion. Patient is afebrile. He is saturating in the low 90s and is tachypneic. He has Rales bilateral bases on exam. EKG was reviewed and interpreted by me Compass report, sinus rhythm 86 bpm, prolonged ID of 230, probable LVH. No STEMI. Suspect acute CHF exacerbation in the setting of chronic kidney disease. Patient has not had Lasix since last week. I will give Lasix 20mg IV. Consider pneumonia. Will send COVID testing although he had home negative test today. Plan to obtain chest x-ray. --Labs reviewed and initial troponin negative. BNP is elevated 800. Chronic kidney disease noted with creatinine of 1.7. No significant leukocytosis. Initial portable chest x-ray insufficient. 2 view chest x-ray was obtained and interpreted by radiology: No acute abnormality. --Patient was reassessed and diuresing after Lasix. Patient notes breathing better on nasal cannula oxygen, saturating in the mid to upper 90s. 1300 --spoke with hospitalist on-call, Dr. Abernathy, discussed ED presentation course, he will admit the patient. Lab Data Lab results reviewed: Yes I reviewed the patient's lab results. Labs: Laboratory Tests Range/Units 09/16/22 09/16/22 09/16/22 10:15 10:15 10:15 WBC (4.4-10.8) 10^3/uL 10.78 RBC (4.36-5.78) 10^6/uL 5.04 Hgb (13.5-17.5) g/dL 14.1 Hct (40.0-50.0) % 44.4 MCV (80-95) fL 88 MCH (27.0-33.0) pg 28.0 MCHC (32.0-36.0) % 31.8 L RDW (11.8-14.1) % 14.0 Plt Count (130-400) 10^3/uL 134 MPV (8.0-11.0) fL 9.5 Immature Gran % 0.5 Neutrophils % 74.5 Lymphocytes % 11.4 Monocytes % 12.8 Eosinophils % 0.4 Basophils % 0.4 Nucleated RBC % (0.0-0.3) % 0.0 Absolute Neutrophils (1.2-6.7) 10^3/uL 8.04 H Absolute Lymphocytes (1.2-3.4) 10^3/uL 1.23 Absolute Monocytes (0.1-0.8) 10^3/uL 1.38 H Absolute Eosinophils (0.0-0.7) 10^3/uL 0.04 Absolute Basophils (0.0-0.2) 10^3/uL 0.04 Sodium (136-145) mmol/L 140 Potassium (3.5-5.1) mmol/L 4.1 Chloride (98-107) mmol/L 105 Carbon Dioxide (21.0-32.0) mmol/L 27.8 Anion Gap (3-11) mmol/L 7.2 BUN (7-18) mg/dL 36 H Creatinine (0.70-1.30) mg/dL 1.7 H Est GFR (CKD-EPI 2020) (mL/min/1.73m2) 39.75 Glucose (74-106) mg/dL 110 H Calcium (8.5-10.1) mg/dL 9.8 Magnesium (1.8-2.4) mg/dL 2.0 Total Bilirubin (0.2-1.0) mg/dL 1.5 H AST (15-37) U/L 12 L ALT (16-63) U/L 20 Alkaline Phosphatase (46-116) U/L 65 Troponin I (<or=60) ng/L < 50 NT-Pro-B Natriuret Pep (<300) pg/mL 803 H Total Protein (6.4-8.2) g/dL 7.1 Albumin (3.4-5.0) g/dL 3.5 COVID-19 Source Nasopharynx SARS-CoV-2 (PCR) (Negative) Negative Influenza Type A (PCR) (Negative) Negative Influenza Type B (PCR) (Negative) Negative RSV (PCR) (Negative) Negative HPI General Mode of arrival: ambulatory . Date/Time Provider Initiated Documentation: 09/16/22 09:19 . Limitations to Documentation: no limitations . Information obtained by: patient and family . HPI Narrative: 81-year-old male with history of hypertension, chronic kidney disease, on intermittent Lasix, here with chief complaint of cough. Patient notes over the past couple days she has had increasing cough with associated dyspnea on exertion. No chest pain. He has had bilateral lower extremity edema. No calf pain. No associated fever. Related Data Home Medications Medication Instructions Recorded Confirmed acetaminophen 500 mg tablet 1,000 mg PO PRN PRN 06/11/12 09/16/22 (Acetaminophen Extra Strength) polyvinyl alcohol 1.4 % eye drops 1 drp ophthalmic (eye) PRN PRN 06/11/12 09/16/22 (Artificial Tears (polyvinyl alcohol)) metoprolol tartrate 25 mg tablet 12.5 mg PO DAILY #45 tabs 01/08/22 09/16/22 spironolactone 25 mg tablet 25 mg PO DAILY edema #90 tabs 01/08/22 09/16/22 furosemide 20 mg tablet (Lasix) 20 mg PO BID #180 tabs 01/19/22 09/16/22 rivaroxaban 10 mg tablet 10 mg PO DAILY #30 tabs 04/08/22 09/16/22 IV Fluids #500 mL 05/05/22 09/16/22 lisinopril 40 mg tablet 20 mg PO DAILY #90 tabs 08/14/22 09/16/22 Previous Rx's Medication Instructions Recorded metoprolol tartrate 25 mg tablet 12.5 mg PO DAILY #45 tabs 01/08/22 spironolactone 25 mg tablet 25 mg PO DAILY edema #90 tabs 01/08/22 furosemide 20 mg tablet (Lasix) 20 mg PO BID #180 tabs 01/19/22 rivaroxaban 10 mg tablet 10 mg PO DAILY #30 tabs 04/08/22 IV Fluids #500 mL 05/05/22 lisinopril 40 mg tablet 20 mg PO DAILY #90 tabs 08/14/22 Allergies Allergy/AdvReac Type Severity Reaction Status Date / Time amlodipine AdvReac Mild nightmares/restless Verified 09/16/22 09:27 sleep hydrochlorothiazide AdvReac Mild possible Verified 09/16/22 09:27 Erectile dysfunction finasteride AdvReac Hypertensio Verified 09/16/22 09:27 n General Stated Complaint: SOB THALIA: 3 Review of Systems All systems reviewed & are unremarkable except as noted in HPI and below Constitutional Constitutional: Denies fever(s) Cardiovascular Cardiovascular: Denies chest pain and Reports lightheadedness Respiratory Respiratory: Reports as per HPI and Reports cough PFSH All Active Problems (Updated 09/16/22 @ 13:20 by David Pollard MD) Acute exacerbation of congestive heart failure (Acute) Nail dystrophy (Acute) Tinea (Acute) BPH w/o urinary obs/LUTS (Chronic 02/15/11) nocturiaX1-2; INCR 3X 09/2012 Hyperlipidemia (Chronic 10/24/04) RISK 12% 11/2005; LDL goal 100 Need labs, [ ] Fall 201807/01/18 Urine frequency (Acute) DVT (deep venous thrombosis) (Chronic) New DVT, 02/2021. Xarelto started. Resolved, Eliquis D/C'd 07/2020 by Surg. HTN (hypertension) (Chronic) Left knee pain (Acute) Acute on chronic. Not a surgical candidate. Cane helping - may need training.. Osteoarthritis of left knee (Acute) Steroid injection: 12/07/2020 Leg edema (Acute) Resolves with activity, qAM, 04/2022.. (Worsening, re-start furosemide, 10/2020) Edema (Acute) b/l general .. trial compression and lasix Renal insufficiency (Chronic) becoming CKD, Stage 2-3.. 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 incidental finding on US Benign hypertension (12/09/05) <140/85; BP was high at time of colonoscopy so Dr. Taylor started him on HCTZ 2005. High BP readings @ ophtho, urol . turns out to be 2' finesteride, Dr. Smallwood d/c'd .. will follow up in July 2018. 125/85 today, 06/2018, ik. 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 denies this stated that this was due to an interaction a year ago where having the masks on and he his hard of hearing they stated he had dementia which his and current PCP stated he does not. Obesity, Class II, BMI 35-39.9, no comorbidity (02/15/11) His goal 220 (100kg); 191=87kg=BMI 30 Pain in joint, other specified sites (02/15/11) Surgical History Arthroscopy (02/10/84) in CT, Left knee Hx of cataract removal with insertion of prosthetic lens 12/11/20 [place], [facility] Nuclear sclerotic cataract of right eye Posterior subcapsular age-related cataract, right eye S/P cholecystectomy (01/24/20) S/P ERCP Family History Son Age: 60 No problems noted. 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 [employer] Current gender identity: male What type of physical activity do you participate in: none Working smoke detector in home: Yes Fire extinguisher in home: Yes Carbon monox detector in home: Yes Do you feel safe at home: Yes Additional Social history: unable to assess privately Exam Const General: cooperative Nutritional Appearance: obese HENMT Mouth: moist mucous membranes Eyes Conjunctivae: normal conjunctivae Sclera: normal sclerae Neck Neck: trachea midline and supple Resp Effort & Inspection: cough, labored and tachypneic Auscultation: rales bilaterally at the base, no rhonchi and no wheezes Cardio Rate: regular rate and not tachycardic Rhythm: regular rhythm GI Palpation: soft, not firm, no guarding, no masses, not rigid and nontender Skin General skin exam: no rashes or lesions noted Neuro General: patient alert, patient awake and tone normal Extrem General: no calf tenderness and edema Laterality: bilateral (2+ pitting up shins) Psych Appearance: grossly normal Mental Status: mental status grossly normal Course Vital Signs Vital signs: Vital Signs Temperature 37.2 C 09/16/22 09:19 Pulse 96 H 09/16/22 09:19 Respiratory Rate 24 09/16/22 09:19 Blood Pressure 151/97 H 09/16/22 09:19 Pulse Oximetry 95 09/16/22 09:19 Temperature 37.2 C 09/16/22 09:19 Temperature Source Skin 09/16/22 09:19 Pulse 96 H 09/16/22 09:19 Respiratory Rate 24 09/16/22 09:19 Blood Pressure 151/97 H 09/16/22 09:19 Blood Pressure Position Sitting 09/16/22 09:19 Pulse Oximetry 95 09/16/22 09:19 Oxygen Delivery Method Room Air 09/16/22 09:19 Oxygen Flow Rate 0 09/16/22 09:19 Pain Level 0 09/16/22 09:19
[2022-09-16] MEDS: Furosemide 20 MG/2 ML VIAL IVP (10:21)
[2022-09-16 10:28] LABS: Abs Immature Grans 0.05 10^3/uL (0.0-0.06); Absolute Basophil Count 0.04 10^3/uL (0.0-0.2); Absolute Eosinophil Count 0.04 10^3/uL (0.0-0.7); Absolute Lymphocyte Count 1.23 10^3/uL (1.2-3.4); Absolute Monocyte Count 1.38 10^3/uL (0.1-0.8); Absolute Neutrophil Count 8.04 10^3/uL (1.2-6.7); Basophils % 0.4; Eosinophils % 0.4; HCT 44.4 % (40.0-50.0); HGB 14.1 g/dL (13.5-17.5); Immature Grans % 0.5; Lymphocytes % 11.4; MCHC 31.8 % (32.0-36.0); MCV 88 fL (80-95); MPV 9.5 fL (8.0-11.0); Monocytes % 12.8; Neutrophils % 74.5; Platelet Count 134 10^3/uL (130-400); RBC 5.04 10^6/uL (4.36-5.78); RDW-SD 44.9 fL; WBC 10.78 10^3/uL (4.4-10.8)
[2022-09-16 10:49] LABS: ALT 20 U/L (16-63); AST 12 U/L (15-37); Albumin 3.5 g/dL (3.4-5.0); Alkaline Phosphatase 65 U/L (46-116); Anion Gap 7.2 mmol/L (3-11); BUN 36 mg/dL (7-18); Bilirubin, Total 1.5 mg/dL (0.2-1.0); CO2 27.8 mmol/L (21.0-32.0); CREATININE 1.7 mg/dL (0.70-1.30); Calcium 9.8 mg/dL (8.5-10.1); Chloride 105 mmol/L (98-107); Estimated GFR 39.75 (mL/min/1.73m2); Glucose 110 mg/dL (74-106); NT-proBNP 803 pg/mL (<300); Potassium 4.1 mmol/L (3.5-5.1); Sodium 140 mmol/L (136-145); Total Protein 7.1 g/dL (6.4-8.2); Troponin I < 50 ng/L (<or=60)
--- NOTE | 2022-09-16 11:04 | DI.RAD_ITS ---
Exam(s) XR PORTABLE CHEST AP EXAM: XR PORTABLE CHEST AP CLINICAL HISTORY: SOB TECHNIQUE: 2D digital imaging was performed. COMPARISON: CR,XR XR CHEST 2V PA LATERAL from 04/27/2022 FINDINGS: Exam is extremely limited due to body habitus and lack of pulmonary inflation was as well as multipl e monitoring leads coiled over the chest. Portion of the abdominal soft tissues overlies the lung ba ses. LUNGS: Grossly clear. No pleural abnormality seen. HEART: Grossly normal size given degree of expiration.. AORTA: Normal diameter. BONES: Unremarkable for age. Soft tissues: Unremarkable. IMPRESSION: Severely limited exam. No acute findings. DATA REPOSITORY: RADIATION DOSE DELIVERED:
[2022-09-16 11:48] LABS: COVID-19 PCR Negative (Negative); Influenza A PCR Negative (Negative); Influenza B PCR Negative (Negative); RSV PCR Negative (Negative)
[2022-09-16 11:53] LABS: Source Nasopharynx
--- NOTE | 2022-09-16 12:13 | DI.RAD_ITS ---
Exam(s) XR CHEST 2V PA LATERAL EXAM: XR CHEST 2V PA LATERAL CLINICAL HISTORY: cough TECHNIQUE: 2D digital imaging was performed. COMPARISON: CR,XR XR CHEST 2V PA LATERAL from 04/27/2022 CR XR PORTABLE CHEST AP from 09/16/2022 FINDINGS: Lateral view limited by poor pulmonary inflation. HEART: Mildly enlarged. Aorta: Not dilated. Mildly ectatic. PULMONARY VASCULATURE: Normal. LUNGS: Mild chronic fibrotic changes. No focal infiltrate visible. PLEURAL SPACE: No pleural effusion or pneumothorax. BONE:Unremarkable for age. IMPRESSION: No acute abnormality. DATA REPOSITORY: RADIATION DOSE DELIVERED:
[2022-09-16 13:43] LABS: Troponin I < 50 ng/L (<or=60)
--- NOTE | 2022-09-16 14:05 | HPE_ITS ---
Date of service: 09/16/22 Time of Service: 14:05 Assessment and Plan Assessment and plan (1) Acute exacerbation of congestive heart failure: Status: Acute Assessment and plan: I suspect that he has HFPEF and possibly right heart failure from untreated OLIVIER. His echo did not show high TR velocities therefore his RVSP was estimated as low at 18 cm but I do not believe these numbers since on the echo report it indicated that RV was not well visualized and TR velocities are very angle dependent. Mitral inflow velocities and mitral annular velocities were not recorded therefore unable to comment on his diastology. I will diurese him w/ lasix drip and monitor his urine output and follow his labs and weights. He could also benefit from compression hose and he should have outpatient PSG. 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 Denies associated fever or rigors. Has had worsening bilateral leg edema. No chest pain or chest pressure. Patient denies any cardiac history such as myocardial infarction stroke or congestive heart failure. However I think he is a poor historian when I asked him about chronic kidney disease he denied the same. He also denies any history of diabetes mellitus or sleep apnea. However upon further questioning he admits his has noted him to snore at night. Comorbidities include osteoarthritis, remote DVT for which she is chronically anticoagulated with rivaroxaban, previous gallstone pancreatitis. Status post cholecystectomy, obesity, Craig's cyst, previous cataract removal with insertion of prosthetic lens, previous left knee arthroscopy. Evaluation in the ER included chest x-ray that was interpreted by radiology as having no acute abnormality. His proBNP however was elevated at 800 and his creatinine is elevated at 1.7. CBC showed no leukocytosis. COVID test was negative. Troponin levels were negative. Patient was given Lasix 20 mg IV in the emergency department and we were called by the ED department to admit him for further diuresis. EKG showed no acute ischemia probable LVH normal sinus rhythm rate 86 bpm. Patient is admitted for treatment of what appears to be exacerbation of heart failure either HFrEF or HFpEF. Echocardiogram was ordered and actually got done before he was admitted to the floor. Echocardiogram showed normal left ventricular wall thickness and size EF 55% with no wall motion abnormalities. RV was not well-visualized but was reported as not appearing to be enlarged. He reportedly had normal left atrial and right atrial size. Aortic valve is sclerotic without stenosis or regurgitation. He had mild MAC with trace of mitral vegetation. His estimated RVSP was 18 mm. 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 Mitral valve inflow parameters were not recorded therefore no estimation could be made regarding diastology. Review of Systems Constitutional Constitutional: Reports as per HPI and Reports snoring Cardiovascular Cardiovascular: Denies chest pain, Denies irregular heart rhythm, Reports leg edema, Denies lightheadedness, Denies radiating jaw, neck or arm pain, Denies palpitations, Reports dyspnea and Reports dyspnea on exertion Respiratory Respiratory: Denies chest congestion, Reports cough, Denies hemoptysis, Denies excessive phlegm production, Reports dyspnea, Reports dyspnea on exertion and Reports snoring Gastrointestinal Gastrointestinal: Reports system reviewed and no additional complaints, except as documented Genitourinary Genitourinary: Reports system reviewed and no additional complaints, except as documented Musculoskeletal Musculoskeletal: Reports back pain Integumentary/Breasts Skin/Breast: Reports system reviewed and no additional complaints, except as documented Neurologic Neurologic: Reports system reviewed and no additional complaints, except as documented Psychiatric Psychiatric: Reports system reviewed and no additional complaints, except as documented Endocrine Endocrine: Reports system reviewed and no additional complaints, except as documented and Denies palpitations Hematologic/Lymphatic Hematologic/Lymphatic: Reports system reviewed and no additional complaints, except as documented Allergic/Immunologic Allergic/Immunologic: Reports system reviewed and no additional complaints, except as documented PFSH All Active Problems (Updated 09/16/22 @ 18:49 by Stef Abernathy MD) Acute exacerbation of congestive heart failure (Acute) Nail dystrophy (Acute) Tinea (Acute) BPH w/o urinary obs/LUTS (Chronic 02/15/11) nocturiaX1-2; INCR 3X 09/2012 Hyperlipidemia (Chronic 10/24/04) RISK 12% 11/2005; LDL goal 100 Need labs, [ ] Fall 201807/01/18 Urine frequency (Acute) HTN (hypertension) (Chronic) Left knee pain (Acute) Acute on chronic. Not a surgical candidate. Cane helping - may need training.. Osteoarthritis of left knee (Acute) Steroid injection: 12/07/2020 Leg edema (Acute) Resolves with activity, qAM, 04/2022.. (Worsening, re-start furosemide, 10/2020) Edema (Acute) b/l general .. trial compression and lasix Renal insufficiency (Chronic) becoming CKD, Stage 2-3.. 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 incidental finding on US Benign hypertension (12/09/05) <140/85; BP was high at time of colonoscopy so Dr. Taylor started him on HCTZ 2005. High BP readings @ ophtho, urol . turns out to be 2' finesteride, Dr. Smallwood d/c'd .. will follow up in July 2018. 125/85 today, 06/2018, ik. 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 difficile colitis RX Vanco DVT (deep venous thrombosis) New DVT, 02/2021. Xarelto started. Resolved, Cinda D/C'd 07/2020 by Surg. 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 denies this stated that this was due to an interaction a year ago where having the masks on and he his hard of hearing they stated he had dementia which his and current PCP stated he does not. Obesity, Class II, BMI 35-39.9, no comorbidity (02/15/11) His goal 220 (100kg); 191=87kg=BMI 30 Pain in joint, other specified sites (02/15/11) Surgical History Arthroscopy (02/10/84) in [place], Left knee Hx of cataract removal with insertion of prosthetic lens 12/11/20 [facility], [facility] Nuclear sclerotic cataract of right eye Posterior subcapsular age-related cataract, right eye S/P cholecystectomy (01/24/20) S/P ERCP Family History Son Age: 60 No problems noted. 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 [employer] Current gender identity: male What type of physical activity do you participate in: none Working smoke detector in home: Yes Fire extinguisher in home: Yes Carbon monox detector in home: Yes Do you feel safe at home: Yes Additional Social history: unable to assess privately Meds Allergies and Home Medications Allergies Allergy/AdvReac Type Severity Reaction Status Date / Time amlodipine AdvReac Mild nightmares/restless Verified 09/16/22 09:27 sleep hydrochlorothiazide AdvReac Mild possible Verified 09/16/22 09:27 Erectile dysfunction finasteride AdvReac Hypertensio Verified 09/16/22 09:27 n Home Medications Medication Instructions Recorded Confirmed Type acetaminophen 500 mg tablet 1,000 mg PO PRN PRN 06/11/12 09/16/22 History (Acetaminophen Extra Strength) polyvinyl alcohol 1.4 % eye drops 1 drp ophthalmic (eye) PRN PRN 06/11/12 09/16/22 History (Artificial Tears (polyvinyl alcohol)) metoprolol tartrate 25 mg tablet 12.5 mg PO DAILY #45 tabs 01/08/22 09/16/22 Rx spironolactone 25 mg tablet 25 mg PO DAILY edema #90 tabs 01/08/22 09/16/22 Rx furosemide 20 mg tablet (Lasix) 20 mg PO BID #180 tabs 01/19/22 09/16/22 Rx rivaroxaban 10 mg tablet 10 mg PO DAILY #30 tabs 04/08/22 09/16/22 Rx IV Fluids #500 mL 05/05/22 09/16/22 Rx lisinopril 40 mg tablet 20 mg PO DAILY #90 tabs 08/14/22 09/16/22 Rx Exam Const General: cooperative Nutritional Appearance: obese Orientation: alert, awake and oriented x3 HENMT Head: normal to inspection and normocephalic Ears: hearing grossly normal bilaterally General nose exam: external nose normal Face and sinus: normal facial exam Neck Neck: normal visual inspection, full ROM, no lymphadenopathy, trachea midline, supple and no JVD Carotids: normal carotid upstroke Chest Chest: normal inspection of the chest and normal palpation of entire chest wall Resp Effort & Inspection: normal respiratory effort and able to speak in complete sentences Auscultation: clear to auscultation bilaterally (clear anteriorly and in upper and mid lung ramos) and crackles bilaterally at the base Cardio Jugular venous pressure: no JVD Palpation: normal PMI Rate: regular rate Rhythm: regular rhythm Heart Sounds: S1 normal, S2 normal and normal, physiologic split S2 Pulses: normal peripheral pulses GI Inspection: normal to inspection Palpation: soft and no hepatosplenomegaly Percussion: normal to percussion Auscultation: normal bowel sounds Back/Spine/Pelvis Back: no CVA tenderness Cervical Spine: normal cervical lordosis Thoracic/Lumbar Spine: thoracic and lumbar spine normal to inspection Skin General skin exam: no rashes or lesions noted, elasticity normal and turgor normal Neuro General: patient alert, patient awake and patient oriented x3 Cranial Nerves: CN's II-XI intact bilaterally Cognition: normal cognition Speech: speech normal Motor: muscle tone normal throughout Sensory Exam: no sensory deficits noted Extrem General: normal to inspection, full ROM, capillary refill normal, no calf tenderness bilaterally, no cyanosis, edema Laterality: bilateral and pedal edema bilaterally pitting and 3+ Psych Appearance: grossly normal Mental Status: mental status grossly normal Speech and Movement: speech and movement normal Mood: congruent mood Affect: normal affect Attitude: cooperative Thought Process: normal Thought Content: normal Insight: fair Judgment: judgment good Results Imaging Chest x-ray: report reviewed and image reviewed EKG: image reviewed Imaging Studies: Echocardiogram: Conclusion Normal left ventricular wall thickness and chamber size.? Ejection fraction is 55%.? Wall motion appears normal Right ventricle is not well visualized but does not appear enlarged Normal left and right atrial size Aortic valve is sclerotic without stenosis or regurgitation Mild mitral annular calcification, trace mitral regurgitation Estimated right ventricular systolic pressure is 18 mmHg Mildly dilated ascending aorta measuring 3.54 cm Labs 09/16/22 10:15 09/16/22 10:15 Labs: Laboratory Results - last 24 hr 09/16/22 09/16/22 09/16/22 10:15 10:15 10:15 WBC 10.78 RBC 5.04 Hgb 14.1 Hct 44.4 MCV 88 MCH 28.0 MCHC 31.8 L RDW 14.0 Plt Count 134 MPV 9.5 Immature Gran % 0.5 Neutrophils % 74.5 Lymphocytes % 11.4 Monocytes % 12.8 Eosinophils % 0.4 Basophils % 0.4 Nucleated RBC % 0.0 Absolute Neutrophils 8.04 H Absolute Lymphocytes 1.23 Absolute Monocytes 1.38 H Absolute Eosinophils 0.04 Absolute Basophils 0.04 Sodium 140 Potassium 4.1 Chloride 105 Carbon Dioxide 27.8 Anion Gap 7.2 BUN 36 H Creatinine 1.7 H Est GFR (CKD-EPI 2020) 39.75 Glucose 110 H Calcium 9.8 Magnesium 2.0 Total Bilirubin 1.5 H AST 12 L ALT 20 Alkaline Phosphatase 65 Troponin I < 50 NT-Pro-B Natriuret Pep 803 H Total Protein 7.1 Albumin 3.5 COVID-19 Source Nasopharynx SARS-CoV-2 (PCR) Negative Influenza Type A (PCR) Negative Influenza Type B (PCR) Negative RSV (PCR) Negative 09/16/22 13:15 WBC RBC Hgb Hct MCV MCH MCHC RDW Plt Count MPV Immature Gran % Neutrophils % Lymphocytes % Monocytes % Eosinophils % Basophils % Nucleated RBC % Absolute Neutrophils Absolute Lymphocytes Absolute Monocytes Absolute Eosinophils Absolute Basophils Sodium Potassium Chloride Carbon Dioxide Anion Gap BUN Creatinine Est GFR (CKD-EPI 2020) Glucose Calcium Magnesium Total Bilirubin AST ALT Alkaline Phosphatase Troponin I < 50 NT-Pro-B Natriuret Pep Total Protein Albumin COVID-19 Source SARS-CoV-2 (PCR) Influenza Type A (PCR) Influenza Type B (PCR) RSV (PCR) Last Vital Signs Temp 37.2 C 09/16/22 09:19 Pulse 70 09/16/22 11:46 Resp 17 09/16/22 11:46 BP 122/73 09/16/22 11:46 Pulse Ox 97 09/16/22 11:46 Time Spent Time spent with Patient: 55-74 minutes Time was spent: preparing to see the patient(eg.review tests), obtaining and/or reviewing separately otained hiistory, ordering medications,tests, procedures, referring, communicating with other health client care specialist, indepentently interpreting results, counseling the patient and care coordination
[2022-09-16] MEDS: metOLazone 2.5 MG TAB PO (15:01)
[2022-09-16] MEDS: Furosemide 40 MG/4 ML VIAL IVP (16:17)
[2022-09-16] MEDS: Nystatin POWDER 60 GM JAR TP (22:49)
[2022-09-17] VITALS (9 sets, daily range): BP systolic 100–138; BP diastolic 64–91; PULSE 76–101; RESP 16–24; TEMP 36.7–37.2; O2SAT 92–95
[2022-09-17 06:54] LABS: Anion Gap 5.7 mmol/L (3-11); BUN 39 mg/dL (7-18); CO2 31.3 mmol/L (21.0-32.0); CREATININE 1.8 mg/dL (0.70-1.30); Chloride 102 mmol/L (98-107); Estimated GFR 37.12 (mL/min/1.73m2); Glucose 143 mg/dL (74-106); Potassium 3.5 mmol/L (3.5-5.1); Sodium 139 mmol/L (136-145); TSH (W/Ref FT4) 0.85 uIU/mL (0.36-3.74)
[2022-09-17] MEDS: Metoprolol 12.5 MG TAB PO (08:01)
[2022-09-17] MEDS: Lisinopril 20 MG TAB PO (08:02)
[2022-09-17] MEDS: Spironolactone 25 MG TAB PO (08:02)
[2022-09-17] MEDS: Rivaroxaban 10 MG TABLET PO (08:02)
[2022-09-17] MEDS: Normal Saline Flush 10 ML SYR IVP (08:03)
--- NOTE | 2022-09-17 09:48 | PDOC.CMIN ---
Date of service: 09/17/22 Time of Service: 09:49 Care Management Initial Assmt Initial Assessment REASON FOR HOSPITALIZATION:: CHF PREVIOUS FUNCTIONAL STATUS/SOCIAL/FAMILY SUPPORTS:: Raffy lives with his Oksana in a single family home in [place], [place]. They have no children. 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 He does not receive any services and is independent with ADLs. CURRENT FUNCTIONAL STATUS:: Raffy was sitting up in a chair visiting with Reny when CM met with him. He was pleasant and engaged well in conversation. Raffy stated that he was doing much better than when he was first admitted. He has been on a lasix drip and has diuresed well. PT has recommended home health PT as Raffy has been having more difficulty with ambulation. He is agreeable. ADVANCE DIRECTIVES:: On file. Reny [facility] Has patient been provided with info about the portal/API?: Yes Did the patient sign up for the portal?: No CODE STATUS:: Full Code INSURANCE COVERAGE / FINANCIAL ISSUES:: Medicare [employer] MCR Supplement PRIMARY CARE PHYSICIAN:: Elana Geren POTENTIAL DISCHARGE NEEDS:: follow up with PCP and cardiology PATIENT/FAMILY EDUCATION NEEDS:: review Discharge plan, limitations, activity, follow up plan, Ask Me Three TRANSPORTATION:: via private vehicle with family PLAN:: Anticipate Raffy will discharge home with no new services when medically cleared by provider. He will follow up with his PCP and Cardiology and transport with family. CM will continue to support Raffy and assess for discharge planning concerns. PFSH All Active Problems (Updated 09/16/22 @ 18:49 by Stef Abernathy MD) Acute exacerbation of congestive heart failure (Acute) Nail dystrophy (Acute) Tinea (Acute) BPH w/o urinary obs/LUTS (Chronic 02/15/11) nocturiaX1-2; INCR 3X 09/2012 Hyperlipidemia (Chronic 10/24/04) RISK 12% 11/2005; LDL goal 100 Need labs, [ ] Fall 2019 07/01/18 Urine frequency (Acute) HTN (hypertension) (Chronic) Left knee pain (Acute) Acute on chronic. Not a surgical candidate. Cane helping - may need training.. Osteoarthritis of left knee (Acute) Steroid injection: 12/07/2020 Leg edema (Acute) Resolves with activity, qAM, 04/2022.. (Worsening, re-start furosemide, 10/2020) Edema (Acute) b/l general .. trial compression and lasix Renal insufficiency (Chronic) becoming CKD, Stage 2-3.. 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 incidental finding on US Benign hypertension (12/09/05) <140/85; BP was high at time of colonoscopy so Dr. Taylor started him on HCTZ 2005. High BP readings @ ophtho, urol . turns out to be 2' finesteride, Dr. Smallwood d/c'd .. will follow up in July 2018. 125/85 today, 06/2018, ik. 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 difficile colitis RX Vanco DVT (deep venous thrombosis) New DVT, 02/2021. Xarelto started. Resolved, Eliquis D/C'd 07/2020 by Surg. 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 denies this stated that this was due to an interaction a year ago where having the masks on and he his hard of hearing they stated he had dementia which his and current PCP stated he does not. Obesity, Class II, BMI 35-39.9, no comorbidity (02/15/11) His goal 220 (100kg); 191=87kg=BMI 30 Pain in joint, other specified sites (02/15/11) Surgical History Arthroscopy (02/10/84) in [place], Left knee Hx of cataract removal with insertion of prosthetic lens 12/11/20 [facility], [facility] Nuclear sclerotic cataract of right eye Posterior subcapsular age-related cataract, right eye S/P cholecystectomy (01/24/20) S/P ERCP Family History Son Age: 60 No problems noted. 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
[2022-09-17] MEDS: Nystatin POWDER 60 GM JAR TP ×2 (10:39→19:59)
[2022-09-17] MEDS: Docusate Sodium 100 MG CAP PO (11:46)
[2022-09-17] MEDS: Polyethylene Glycol 3350 17 GM PACKET PO (11:47)
--- NOTE | 2022-09-17 13:04 | PGE_ITS ---
Date of Service Date of service: 09/17/22 Time of Service: 13:04 Assessment and Plan Assessment and plan (1) Acute exacerbation of congestive heart failure: Status: Acute Assessment and plan: Despite his echo not showing any LVH nor any RWMA, I think that he has HFPEF; his RV was not well visualized and therefore I do not think his TR velocities are all that accurate therefore his estm. RVSP is probably not accurate either. Clinically he seems to have right sided failure w/ chronic bilateral leg edema. He has responded well to lasix drip. As he has diuresed 4 liters and his edema is much better. I will change him back to his oral lasix but increase his dose to 40 mg bid, continue the spironolactone but increase his dose. Because of his generalized weakness, I will get P.T. consult to evaluate his ambulatory ability and see if he needs home health P.T. or should be referred to SNF. 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 Dyspnea also better. He is having some hematuria but probably d/t adamson trauma. He has diuresed 4 liters. I told him that I will dc the lasix drip and put him on scheduled oral diuretics and dc his adamson. Exam Narrative Exam Narrative: Raffy is alert and oriented, no distress, able to talk in complete paragraphs Lungs: clear anteriorly, some bibasilar rales; no rhonchi or wheezing heart: regular, no murmur or rub Abdomen: soft, obese, nontender Legs: edema has gone down remarkably, now only trace to 1+, he has TYSON wraps on his legs, nontender to palpation Objective Last Vital Signs Temp 36.7 C 09/17/22 11:02 Pulse 86 09/17/22 11:02 Resp 16 09/17/22 11:02 BP 130/72 09/17/22 11:02 Pulse Ox 94 09/17/22 11:02 Laboratory Results - last 24 hr 09/16/22 09/16/22 09/17/22 13:15 16:30 06:10 Sodium 139 Potassium 3.5 Chloride 102 Carbon Dioxide 31.3 Anion Gap 5.7 BUN 39 H Creatinine 1.8 H Est GFR (CKD-EPI 2020) 37.12 Glucose 143 H Calcium 10.0 Magnesium 2.0 Troponin I < 50 Cancelled TSH 0.85 Time Spent with Patient Time Spent with Patient: 35-49 minutes Time was spent: preparing to see the patient(eg.review tests), ordering medications,tests, procedures, referring, communicating with other health senior care provider, indepentently interpreting results, counseling the patient and care coordination
[2022-09-17] MEDS: Potassium Chloride 10 MEQ CAPCR 20 MEQ PO (14:24)
--- NOTE | 2022-09-17 15:09 | CHAPLAIN ---
Raffy was up in the chair and visiting with his when I stopped in. They are from [facility]. Raffy said he lost track of time a bit after he arrived and needed to ask earlier if it was 4 a.m. or 4 p.m. I explained my role and offered support.
--- NOTE | 2022-09-17 15:26 | PHA.REVIEW2 ---
Pharmacy Admission Review Admission Clinical Review Admission Pharmacy Review: (Updated 09/16/22 @ 18:49 by Stef Abernathy MD) Acute exacerbation of congestive heart failure (Acute) shelter (current) use of anticoagulants (Acute) amlodipine Adverse Reaction (Mild, Verified 09/16/22 09:27) nightmares/restless sleep hydrochlorothiazide Adverse Reaction (Mild, Verified 09/16/22 09:27) possible Erectile dysfunction finasteride Adverse Reaction (Verified 09/16/22 09:27) Hypertension Resuscitation Status Full Code Height 5 ft 7 in Weight 121.6 kg Comments Comments/Follow Ups: Watch VS, SCr, K+, labs and for med changes (possible renal dose adjustments). Pharmacy Admission Review Renal Dosing Renal Dosing: BUN 39 mg/dL (7-18) H 09/17/22 06:10 Creatinine 1.8 mg/dL (0.70-1.30) H 09/17/22 06:10 Medications needing adjustments: Reviewed (Crcl ~39.5 mL/min current meds okay) Anticoagulation Anticoagulation: Hgb 14.1 g/dL (13.5-17.5) 09/16/22 10:15 Hct 44.4 % (40.0-50.0) 09/16/22 10:15 Plt Count 134 10^3/uL (130-400) 09/16/22 10:15 Creatinine 1.8 mg/dL (0.70-1.30) H 09/17/22 06:10 DVT Prophylaxis: Reviewed (rivaroxaban) Opiate Usage Evaluate Pain Scale/Pains Meds: N/A Relevant Labs Relevant Labs: Sodium 139 mmol/L (136-145) 09/17/22 06:10 Potassium 3.5 mmol/L (3.5-5.1) 09/17/22 06:10 Chloride 102 mmol/L (98-107) 09/17/22 06:10 Magnesium 2.0 mg/dL (1.8-2.4) 09/17/22 06:10 Electrolytes, C-Reactive P, ESR: Reviewed (PO potassium ordered) DM Control DM Control: Glucose 143 mg/dL (74-106) H 09/17/22 06:10 DM Control: Reviewed (no DM noted in pt's medical history, A1c from 05/22/2022 was 6.0) Cardiac Review Cardiac Review: Troponin I Cancelled 09/16/22 16:30 NT-Pro-B Natriuret Pep 803 pg/mL (<300) H 09/16/22 10:15 BP, HR, EF%: Reviewed (BP and HR normal to high so far this admission) QTc Review QTc: Reviewed (QTc 440 on admission) IV to PO Switch IV Medications: Reviewed Home Meds Home Med List reviewed: Reviewed Relevent Home Meds Not ordered & why?: all home meds are currently ordered Current Meds Current Medication Order Review: Intervened (Discontinued duplicate med orders) Comments Comments/Follow Ups: Watch VS, SCr, K+, labs and for med changes (possible renal dose adjustments).
[2022-09-17] MEDS: Furosemide 40 MG TAB PO (16:01)
--- NOTE | 2022-09-17 16:17 | PT.INIE ---
Date of service: 09/17/22 Time of Service: 15:12 PT Notes Visit Reasons: Congestive heart failure Physical Therapy Inpatient Initial Evaluation Date: 09/17/2022 Referring Doctor: Stef Godoy MD PT Orders: PT CONSULT: Fall safety assessment Precautions: Fall. Standard. Activity as tolerated. Patient Profile/Admitting Diagnosis: Raffy Mobley is an 81-year-old male admitted to the ED due to worsening cough, productive with clear sputum, and shortness of breath. Patient is admitted for management of CHF exacerbation, hypertension, and generalized weakness. PMHX: All Active Problems?(Updated 09/16/22 @ 18:49 by Stef Abernathy MD) Acute exacerbation of congestive heart failure (Acute) Nail dystrophy (Acute) Tinea (Acute) BPH w/o urinary obs/LUTS (Chronic 02/15/11) nocturiaX1-2; INCR 3X 09/2012 Hyperlipidemia (Chronic 10/24/04) RISK 12% 11/2005; LDL goal 100 Need labs,? [ ] Fall 201807/01/18 Urine frequency (Acute) HTN (hypertension) (Chronic) Left knee pain (Acute) Acute on chronic. Not a surgical candidate. Cane helping - may need training.. Osteoarthritis of left knee (Acute) Steroid injection: 12/07/2020eg edema (Acute) Resolves with activity, qAM, 04/2022.. (Worsening, re-start furosemide, 10/2020) Edema (Acute) b/l general .. trial compression and lasix Renal insufficiency (Chronic) becoming CKD, Stage 2-3.. 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 incidental finding on US Benign hypertension (12/09/05) <140/85; BP was high at time of colonoscopy so Dr. Taylor started him on HCTZ 2005. High BP readings @ ophtho, urol . turns out to be 2' finesteride, Dr. Smallwood d/c'd .. will follow up in July 2018. 125/85 today, 06/2018, ik. 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 difficile colitis RX Vanco DVT (deep venous thrombosis) New DVT, 02/2021. Xarelto started. Resolved, Eliquis D/C'd 07/2020 by Surg. 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 denies this stated that this was due to an interaction a year ago where having the masks on and he his hard of hearing they stated he had dementia which his and current PCP stated he does not. Obesity, Class II, BMI 35-39.9, no comorbidity (02/15/11) His goal 220 (100kg); 191=87kg=BMI 30 Pain in joint, other specified sites (02/15/11) Surgical History? Arthroscopy (02/10/84) in CT, Left knee Hx of cataract removal with insertion of prosthetic lens 12/11/20 Franko, NVRHNuclear sclerotic cataract of right eye Posterior subcapsular age-related cataract, right eye S/P cholecystectomy (01/24/20) S/P ERCP Social History/Home Situation: Lives with in a private home. Independent with use of single-point cane indoors and outdoors. Equipment Owned/DME: SPC, FWW Subjective: Patient indicates that his catheter has been bothering him and makes it difficult to stand up and sit back down onto chair. states that patient has been bent over for a long time specially with a walker use. Objective: General Observation: Telemetry monitoring in place. Had been on oxygen supplementation via NC but RT Andreia discharged after session as patient maintain saturation above 92% on room air with walking Mental Status: Alert and oriented as to person, place, time, and purpose. Able to pay attention, focus, and respond appropriately. Pain: Denies Vital Signs: Oxygen supplementation maintained at 92% on room air after ambulation activity ROM: Right Upper Extremity: Shoulder Flexion WFL. Shoulder abduction WFL. Elbow flexion WFL. Wrist flexion WFL. Functional opening and closing of hand WFL. Left Upper Extremity: Shoulder Flexion WFL. Shoulder abduction WFL. Elbow flexion WFL. Wrist flexion WFL. Functional opening and closing of hand WFL. Right Lower Extremity: Hip flexion lacks the last 25% of AROM due to abdominal pannus. Hip abduction WFL. Knee flexion 20 degrees to 90 degrees. Knee extension -20 degrees. Ankle dorsiflexion to neutral only. Ankle plantarflexion WFL. Left Lower Extremity: Hip flexion lacks the last 25% of AROM due to abdominal pannus. Hip abduction WFL. Knee flexion 20 degrees to 90 degrees. Knee extension -20 degrees. Ankle dorsiflexion to neutral only. Ankle plantarflexion WFL. Strength: Right Upper Extremity: Shoulder flexors 4-/5. Shoulder abductors 4-/5. Elbow flexors 4-/5. Elbow extensors 4-/5. Communication Signals Intelligence strong. Left Upper Extremity: Shoulder flexors 4-/5. Shoulder abductors 4-/5. Elbow flexors 4-/5. Elbow extensors 4-/5. Communication Signals Intelligence strong. Right Lower Extremity: Hip flexors 3-/5. Hip abductors 4-/5. Knee flexors 4-/5. Knee extensors 4-/5. Ankle dorsiflexors 4-/5. Ankle plantarflexors 4-/5. Left Lower Extremity: Hip flexors 3-/5. Hip abductors 4-/5. Knee flexors 4-/5. Knee extensors 4-/5. Ankle dorsiflexors 4-/5. Ankle plantarflexors 4-/5. Bed Mobility/Transfers: Sit to stand minimal assist with cues provided for hand placement Stand to sit minimal assist with cues provided for hand placement Gait: Instructed patient with level surface ambulation of 250 feet requiring minimal assist of PT and wheelchair follow of RT Boswell. Trunk flexion excessive, patient tends to lag way behind walker despite verbal cues not to. Lorena, step height, and step length decreased. Balance: Static Sitting: Normal Dynamic Sitting: Normal Static Standing: Fair Dynamic Standing: Fair Special Tests: Mobility Limitations Standardized Measure [facility]-PAC 6 clicks Basic Mobility Inpatient Short Form: Raw Score: 12 CMS Score: 69% deficit Informed Consent/Education: Patient and were instructed in purpose of PT consult and plan of care. Agreeable to proceed with established PT POC to achieve personal goals. Assessment: Difficulty with sit<>stand due to discomfort with in catheter site insertion compunded by body habitus. Patient should be able to transition with sit<>stand a lot better with use of B hands for support when catheter is discharged. Patient demonstrates functional mobility decline now requiring the use of a front wheeled walker and assistance of 1 person for all mobility ADL performance. is very supportive. Patient presents with clinical signs and symptoms consistent with current/admitting diagnoses that have resulted to mobility limitations, gait instability, generalized weakness, and overall ADL decline as demonstrated by the following impairment level findings: 1. Decreased strength to B UE/LE major muscle groups 2. Impaired sitting/standing balance 3. Impaired activity tolerance 4. Limitation of joint range of motion in B LE joints as above 5. Shortness of breath 6. Swelling (now significantly diminished) Impairments are contributing to the following functional limitations: 1. Decline in bed mobility skills 2. Decline in transfer skills 3. Difficulty with ambulation without assistive device and physical assistance 4. Increased completion time for mobility ADL performance 5. Increased risk for falls 6. Difficulty with managing steps alone safely Patient is assessed as a 76873 moderate complexity based on the following: History: 81-year-old male with past medical history as indicated above Examination: Demonstrable impairment in strength, balance, and mobility level with underlying impairments and functional limitations as exhibited above as well as deficit score of 69% utilizing the [facility] Mobility Inpatient Short Form Presentation: Evolving Decision Makin moderate complexity Goals: Goals X1 week 1. Supine-Sit independent 2. Sit-Supine independent 3. Sit-Stand independent 4. Stand-Sit independent with FWW 5. Bed-Chair independent with FWW 6. Chair-Bed independent with FWW 7. Independent gait on level surface with use of FWW for at least 300 feet without report of pain nor dyspnea 8. Independent stair negotiation while holding onto B rails for at least 2 steps without report of pain nor dyspnea 9. Independent with home exercise program 10. Good static and dynamic standing balance/tolerance Plan of Care/Treatment Plan: 1-2x/day, 7 days/week x 1 week. Plan of care has been reviewed with the AUTO DESIGN DETAILER providing the service under Physical Therapy direction. Initiate Physical Therapy intervention for pain management as needed, strengthening, bed mobility, transfers, gait, stairs, balance training, and use of assistive device. DISCHARGE RECOMMENDATIONS: [] Home with no services [] [X] Home with services. When medically cleared by hospitalist. Patient will benefit from home health PT services in order to progress mobility level using least restrictive assistive ambulatory device, assess home safety, identify additional equipment needs, and establish a functional maintenance program that will increase ability of patient to remain at home. [] Home with outpatient PT [] [] SNF for continued rehabilitation [] [] Shipyard Painting Supervisor Care [] [] SNF versus LTC based on ability to participate and progress [] TREATMENT CODE/TIME: 21608 x 25 minutes (1 unit) beginning at 15:12 PM. Thank you for the opportunity to participate in the care of this patient. Julieta Farley PT, DPT, CLT [facility] [place], [place]
[2022-09-18] VITALS (11 sets, daily range): BP systolic 105–118; BP diastolic 43–75; PULSE 81–98; RESP 1–22; TEMP 35.9–37.2; O2SAT 91–95
[2022-09-18 07:31] LABS: Anion Gap 6.9 mmol/L (3-11); BUN 59 mg/dL (7-18); CO2 31.1 mmol/L (21.0-32.0); CREATININE 2.4 mg/dL (0.70-1.30); Calcium 10.2 mg/dL (8.5-10.1); Chloride 103 mmol/L (98-107); Estimated GFR 26.28 (mL/min/1.73m2); Glucose 109 mg/dL (74-106); Magnesium 2.2 mg/dL (1.8-2.4); NT-proBNP 172 pg/mL (<300); Potassium 3.4 mmol/L (3.5-5.1); Sodium 141 mmol/L (136-145)
[2022-09-18] MEDS: Metoprolol 12.5 MG TAB PO (08:06)
[2022-09-18] MEDS: Rivaroxaban 10 MG TABLET PO (08:15)
[2022-09-18] MEDS: Furosemide 40 MG TAB PO (08:16)
[2022-09-18] MEDS: Spironolactone 50 MG TAB PO (08:16)
[2022-09-18] MEDS: Potassium Chloride 10 MEQ CAPCR 20 MEQ PO ×3 (08:16→17:24)
[2022-09-18] MEDS: Lisinopril 20 MG TAB PO (08:17)
[2022-09-18] MEDS: Nystatin POWDER 60 GM JAR TP ×2 (08:19→19:19)
--- NOTE | 2022-09-18 10:05 | PDOC.CMPRO ---
Date of service: 09/18/22 Time of Service: 10:05 Care Management Progress Note Progress Note Text Progress Note Text: S/O:Raffy was sitting up in a chair visiting with his when CM met with him. He appeared to be in good spirits and engaged easily with CM. Raffy informed CM that he is feeling much better. There had been some discussion about the possibility of Rafyf going to a SNF for short term rehab but he is able to ambulate independently. Per the physical therapy evaluation, Raffy would be appropriate for home health PT. Raffy's daily weights have been inconsistent in that they have been measured with different scales. He has had his adamson catheter removed, so accurate I&Os are not possible either. The provider ordered a repeat BNP however which objectively shows improvement as it has decreased from 803 to 172, which is within normal limits.raffy will likely be discharged tomorrow. A: aRffy is an 81 year old man admitted on 09/16/22 with CHF P: Anticipate Raffy will discharge home with new home health services for PT when medically cleared by provider.? He will follow up with his PCP and Cardiology and transport with family. CM will continue to support Raffy and assess for discharge planning concerns. :
--- NOTE | 2022-09-18 13:57 | PT.INTREAT ---
Date of service: 09/18/22 Time of Service: 11:31 PT Notes Visit Reasons: Congestive heart failure Inpatient Physical Therapy Treatment Note [facility] Date: 09/18/22 PRECAUTIONS: Fall, standard, activity as tolerated SUBJECTIVE: Patient sitting up in recliner with legs down, agreeable to therapy. Reports he does not need a w/c follow. AFTERNOON: asks where wheelchair is for follow. Sitting up in recliner with legs elevated, agreeable to therapy. OBJECTIVE: PAIN: none reported. BED MOBILITY/TRANSFERS Sit-stand: SBA AFTERNOON min assist Stand-sit: CGA AFTERNOON Min assist Bed-Chair: CGA AFTERNOON min assist Chair-bed: CGA AFTERNOON Min assist. GAIT Assistive Device: FWW Weight bearing: full Assist: CGA with gait belt, wheelchair follow AFTERNOON CGA with wheelchair follow provided by RY Francis. Distance: 50 feet, seated rest, 150 feet AFTERNOON 30 feet, seated rest, 30 feet Deviation: Patient demonstrates reduced peña, reduced step height, reduced step length, FWW too far forward (corrected after verbal cues) AFTERNOON: Patient very unsteady, right knee mina x3, patient becomes very short of breath. VITALS: closely monitored by nursing staff ASSESSMENT: Patient tolerates therapy well, returns to rest comfortably in recliner at end of treatment AFTERNOON Patient denies shortness of breath that this therapist can see, balance much worse than morning, patient demonstrates very poor insight / self awareness. PLAN: continue global strengthening per plan of care until patient is medically cleared for discharge. Patient may benefit from a short SNF stay given sharp decline in performance in afternoon. TREATMENT CODE/TIME: 47283 Gait 16 minutes beginning at 11:31, [id number] Gait 25 minutes beginning at 15:45
--- NOTE | 2022-09-18 14:34 | W.PM.PROGNOT ---
Date of Service Date of service: 09/18/22 Time of Service: 14:34 Assessment and Plan Assessment and plan (1) Acute exacerbation of congestive heart failure: Status: Acute Assessment and plan: echo not showing any LVH nor any RWMA, thought to have HFPEF He has responded well to lasix drip. As he has diuresed 4 liters and his edema improved. BNP down from 800 to 170 downstepped to his oral lasix with increase to 40 mg bid, continue increased spironolactone creatinine is rising. will hold lisinopril. if continues to rise need to back off on diuretics, follow closely (2) HTN (hypertension): Status: Chronic Assessment and plan: continue home dose of lopressor , hold lisinopril in setting of rising creatinine (3) senior living (current) use of anticoagulants: Status: Acute Assessment and plan: continue home dose Xarelto (4) Discharge planning issues: Status: Acute Assessment and plan: continue PT anticipate discharge to home with services vs inpatient rehab stay case management following discussed with Dr Queen. Subjective Subjective Patient reports: no new complaints, feels better, tolerating liquids well, tolerating a regular diet, bowel movement and afebrile; denies voiding w/o difficulty (incontinent ) or shortness of breath Exam Const General: comfortable, no acute distress and ill appearing chronically Nutritional Appearance: obese Orientation: alert, awake and oriented x3 HENMT Head: normal to inspection, normocephalic and atraumatic Mouth: oral mucosae normal Chest Chest: normal inspection of the chest Resp Effort & Inspection: normal respiratory effort Auscultation: diminished lung sounds, no rales, no rhonchi and no wheezes Cardio Rate: regular rate GI Inspection: distended and obesity Palpation: firm and nontender Skin Rashes: no rashes Neuro General: patient alert, patient awake and patient oriented x3 Extrem General: edema Laterality: bilateral Objective Last Vital Signs Temp 35.9 C L 09/18/22 11:03 Pulse 81 09/18/22 11:03 Resp 20 09/18/22 08:01 BP 106/60 09/18/22 11:03 Pulse Ox 92 09/18/22 11:03 Laboratory Results - last 24 hr 09/18/22 06:23 Sodium 141 Potassium 3.4 L Chloride 103 Carbon Dioxide 31.1 Anion Gap 6.9 BUN 59 H Creatinine 2.4 H Est GFR (CKD-EPI 2020) 26.28 Glucose 109 H Calcium 10.2 H Magnesium 2.2 NT-Pro-B Natriuret Pep 172 Time Spent with Patient Time Spent with Patient: 25-34 minutes Time was spent: preparing to see the patient(eg.review tests), obtaining and/or reviewing separately otained hiistory, ordering medications,tests, procedures, indepentently interpreting results, counseling the patient and care coordination
[2022-09-18] MEDS: Normal Saline Flush 10 ML SYR IVP (19:25)
[2022-09-18] MEDS: Albuterol 2.5 MG/3 ML INH SOLN VIAL UPD ×2 (19:25→23:28)
[2022-09-19] VITALS (10 sets, daily range): BP systolic 99–142; BP diastolic 64–88; PULSE 67–97; RESP 1–24; TEMP 36.4–37.5; O2SAT 88–100
[2022-09-19] MEDS: Albuterol 2.5 MG/3 ML INH SOLN VIAL UPD ×2 (02:59→21:46)
[2022-09-19] MEDS: Rivaroxaban 10 MG TABLET PO (07:37)
[2022-09-19] MEDS: Metoprolol 12.5 MG TAB PO (07:37)
[2022-09-19] MEDS: Potassium Chloride 10 MEQ CAPCR 20 MEQ PO ×3 (07:38→16:42)
[2022-09-19] MEDS: Spironolactone 25 MG TAB PO (07:38)
[2022-09-19] MEDS: Furosemide 40 MG TAB PO (07:42)
[2022-09-19] MEDS: Nystatin POWDER 60 GM JAR TP ×2 (07:43→20:12)
[2022-09-19 08:35] LABS: Anion Gap 8.2 mmol/L (3-11); BUN 77 mg/dL (7-18); CO2 29.8 mmol/L (21.0-32.0); CREATININE 2.8 mg/dL (0.70-1.30); Calcium 9.6 mg/dL (8.5-10.1); Chloride 99 mmol/L (98-107); Estimated GFR 21.84 (mL/min/1.73m2); Glucose 114 mg/dL (74-106); Sodium 137 mmol/L (136-145)
--- NOTE | 2022-09-19 09:30 | PDOC.CMPRO ---
Date of service: 09/19/22 Time of Service: 09:30 Care Management Progress Note Progress Note Text Progress Note Text: S/O:Raffy was sitting up in bed when CM met with him. He was complaining of pain in his right great toe and lower leg and was unable to ambulate this morning. Raffy was seen by the PLACEMENT ASSISTANT who informed him she believes it may be gout. Tylenol was ordered to be given at scheduled times and additional analgesic(s) will be added. Raffy's creatinine continues to rise. It was 1.7 on admission and is now 2.8. Per nursing, his lungs still have audible wheezes, although his peripheral edema and shortness of breath have improved. A CRP done today was elevated at 3.36 and a Uric acid level was 14.0, almost twice the normal range (3.5-7.2). Prednisone was added to Raffy's medication regimen by the provider today to help reduce the inflammation in his toe. A: Raffy is an 81 year old man admitted on 09/16/22 with CHF P: Anticipate Raffy will discharge home with? new home health services for PT when medically cleared by provider.? He will follow up with his PCP and Cardiology and transport with family. CM will continue to support Raffy and assess for discharge planning concerns. :
[2022-09-19 10:00] LABS: Absolute Lymphocyte Count 1.38 10^3/uL (1.2-3.4); Absolute Monocyte Count 1.72 10^3/uL (0.1-0.8); HCT 41.2 % (40.0-50.0); HGB 13.3 g/dL (13.5-17.5); Lymphocytes % 12.9; MCH 27.9 pg (27.0-33.0); MCHC 32.3 % (32.0-36.0); MCV 87 fL (80-95); MPV 9.9 fL (8.0-11.0); Neutrophils % 69.4; Platelet Count 137 10^3/uL (130-400); RBC 4.76 10^6/uL (4.36-5.78); RDW 14.1 % (11.8-14.1); RDW-SD 45.3 fL; WBC 10.72 10^3/uL (4.4-10.8)
[2022-09-19 10:01] LABS: Abs Immature Grans 0.06 10^3/uL (0.0-0.06); Absolute Basophil Count 0.05 10^3/uL (0.0-0.2); Absolute Eosinophil Count 0.06 10^3/uL (0.0-0.7); Absolute Neutrophil Count 7.45 10^3/uL (1.2-6.7); Basophils % 0.5; Diff Comment Diff Reviewed; Eosinophils % 0.6; Immature Grans % 0.6
[2022-09-19] MEDS: Acetaminophen 325 MG TAB PO (10:49)
[2022-09-19 11:24] LABS: ESR 47 mm/hr (0-20)
[2022-09-19 11:32] LABS: C-Reactive Protein 3.36 mg/dL (0.0-0.3)
[2022-09-19] MEDS: predniSONE 20 MG TAB 40 MG PO (11:32)
[2022-09-19] MEDS: Albuterol/Ipratropium 3 ML UPD VIAL UPD (11:54)
--- NOTE | 2022-09-19 14:09 | PT.INTREAT ---
Date of service: 09/19/22 Time of Service: 13:30 PT Notes Visit Reasons: Congestive heart failure Inpatient Physical Therapy Treatment Note [facility] Date: 09/19/22 PRECAUTIONS: Fall, standard, activity as tolerated. SUBJECTIVE: Patient reports he could not even begin to walk today at all, he is in so much pain from his great toe on his right foot. Agreeable to bed level exercises only. OBJECTIVE: PAIN: manageable at rest, excruciating if anything bumps or jostles that great toe. BED MOBILITY/TRANSFERS Rolling L/R: mod assist Supine-sit: mod assist Sit-supine: mod x2 Sit-stand: unable Stand-sit: unable Bed-Chair: unable Chair-bed: unable THEREX: Created and reviewed HEP with patient and his as follows. Access Code: [email or web address] URL: [email or web address] Date: 09/19/2022 Prepared by: Deena Tompkins Exercises - Supine Posterior Pelvic Tilt? - 1 x daily - 7 x weekly - 3 sets - 10 reps - Supine March with Posterior Pelvic Tilt? - 1 x daily - 7 x weekly - 3 sets - 10 reps - Supine Active Straight Leg Raise? - 1 x daily - 7 x weekly - 3 sets - 10 reps - Supine Hip Adduction Isometric with Ball? - 1 x daily - 7 x weekly - 3 sets - 10 reps - Supine Quad Set? - 1 x daily - 7 x weekly - 3 sets - 10 reps - Supine Gluteal Sets? - 1 x daily - 7 x weekly - 3 sets - 10 reps - Supine Ankle Pumps? - 1 x daily - 7 x weekly - 3 sets - 10 reps Patient demonstrates good understanding and ability to perform all supine exercises. Will revisit sidelying exercises tomorrow. ASSESSMENT: Patient becomes quite short of breath with exertion. Tolerates therapy well, is resting in bed at end of session. Placed 1 pillow under each lower leg, one folded pillow under left hip to offload pressure per COLLEGE OR UNIVERSITY FACULTY MEMBER Daija. PLAN: Continue global strengthening per plan of care to patient tolerance. Definitely encourage SNF stay at this point for patient to regain lost strength. TREATMENT CODE/TIME: 25938 Ther Ex 37 minutes beginning at 13:30
--- NOTE | 2022-09-19 15:18 | W.PM.PROGNOT ---
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 (2) Acute exacerbation of congestive heart failure: Status: Acute Assessment and plan: echo not showing any LVH nor any RWMA, thought to have HFPEF He has responded well to lasix drip. As he has diuresed 4 liters and his edema improved. BNP down from 800 to 170 downstepped to his oral lasix with increase to 40 mg bid, continue increased spironolactone creatinine is rising. will hold lisinopril. if continues to rise need to back off on diuretics, follow closely (3) HTN (hypertension): Status: Chronic Assessment and plan: continue home dose of lopressor , hold lisinopril in setting of rising creatinine (4) FPC (current) use of anticoagulants: Status: Acute Assessment and plan: continue home dose Xarelto (5) Discharge planning issues: Status: Acute Assessment and plan: continue PT anticipate discharge to home with HH services vs inpatient rehab stay case management following discussed with Dr Queen. Subjective Subjective Patient reports: no new complaints, voiding w/o difficulty and afebrile; denies shortness of breath Interval history since last seen: c/o right great toe redness and swelling Exam Const General: comfortable, no acute distress and ill appearing chronically Nutritional Appearance: obese Orientation: alert, awake and oriented x3 HENMT Head: normal to inspection, normocephalic and atraumatic Mouth: oral mucosae normal Chest Chest: normal inspection of the chest Resp Effort & Inspection: normal respiratory effort Auscultation: diminished lung sounds, no rales, no rhonchi and no wheezes Cardio Rate: regular rate GI Inspection: distended and obesity Palpation: firm and nontender Skin Lesions: no lesions Rashes: rashes noted (erythema to right great toe) Neuro General: patient alert, patient awake and patient oriented x3 Extrem General: edema (improved from yesterday) Laterality: bilateral Objective Last Vital Signs Temp 37.3 C 09/19/22 11:17 Pulse 95 H 09/19/22 11:56 Resp 20 09/19/22 11:56 BP 128/80 09/19/22 11:17 Pulse Ox 96 09/19/22 11:56 Laboratory Results - last 24 hr 09/19/22 09/19/22 09/19/22 07:15 07:15 07:15 WBC 10.72 RBC 4.76 Hgb 13.3 L Hct 41.2 MCV 87 MCH 27.9 MCHC 32.3 RDW 14.1 Plt Count 137 MPV 9.9 Immature Gran % 0.6 Neutrophils % 69.4 Lymphocytes % 12.9 Monocytes % 16.0 Eosinophils % 0.6 Basophils % 0.5 Nucleated RBC % 0.0 Absolute Neutrophils 7.45 H Absolute Lymphocytes 1.38 Absolute Monocytes 1.72 H Absolute Eosinophils 0.06 Absolute Basophils 0.05 ESR Sodium 137 Potassium 4.0 Chloride 99 Carbon Dioxide 29.8 Anion Gap 8.2 BUN 77 H Creatinine 2.8 H Est GFR (CKD-EPI 2020) 21.84 Glucose 114 H Uric Acid 14.0 H Calcium 9.6 C-Reactive Protein 3.36 H 09/19/22 07:15 WBC RBC Hgb Hct MCV MCH MCHC RDW Plt Count MPV Immature Gran % Neutrophils % Lymphocytes % Monocytes % Eosinophils % Basophils % Nucleated RBC % Absolute Neutrophils Absolute Lymphocytes Absolute Monocytes Absolute Eosinophils Absolute Basophils ESR 47 H Sodium Potassium Chloride Carbon Dioxide Anion Gap BUN Creatinine Est GFR (CKD-EPI 2020) Glucose Uric Acid Calcium C-Reactive Protein Time Spent with Patient Time Spent with Patient: 25-34 minutes Time was spent: preparing to see the patient(eg.review tests), obtaining and/or reviewing separately otained hiistory, ordering medications,tests, procedures, indepentently interpreting results, counseling the patient and care coordination
[2022-09-19] MEDS: Acetaminophen 325 MG TAB 650 MG PO ×2 (15:24→19:37)
[2022-09-19] MEDS: Docusate Sodium 100 MG CAP PO (19:37)
[2022-09-19] MEDS: Normal Saline Flush 10 ML SYR IVP (19:37)
--- NOTE | 2022-09-20 | DI.RAD_ITS ---
Exam(s) XR ANKLE RT COMPLETE XR FOOT RT COMPLETE EXAM: XR ANKLE RT COMPLETE CLINICAL HISTORY: pain, suspect gout, no trauma. TECHNIQUE: 2D digital imaging was performed. Three views of the ankle. Three views of foot.. COMPARISON: CR XR FOOT RT COMPLETE from 09/20/2022 FINDINGS: BONES: No acute fracture is present. There are tiny erosions seen at the medial base of the proximal phalanx of the great toe and medial aspect of the 1st metatarsal head. The findings could represent gout. Question of additional in the erosion at the lateral 5th metatarsal head. Tiny plantar misa caneal spur. JOINTS: The ankle mortise is normally aligned. Minimal degenerative changes. SOFT TISSUE: New swelling of ankle foot. Mild amount calcification plantar fascia. IMPRESSION: Diffuse soft tissue swelling. Tiny erosions seen at medial 1st MTP joint are nonspecific but could represent gout. DATA REPOSITORY: RADIATION DOSE DELIVERED:
[2022-09-20 05:35] VITALS: BP 133/77; PULSE 51; RESP 22; TEMP 35.9; O2SAT 91
[2022-09-20 07:07] VITALS: BP 143/71; PULSE 82; RESP 16; TEMP 36.5; O2SAT 91
[2022-09-20] MEDS: Potassium Chloride 10 MEQ CAPCR 20 MEQ PO ×3 (08:32→16:02)
[2022-09-20] MEDS: Spironolactone 25 MG TAB PO (08:34)
[2022-09-20] MEDS: Furosemide 40 MG TAB PO (08:35)
[2022-09-20] MEDS: Rivaroxaban 10 MG TABLET PO (08:35)
[2022-09-20] MEDS: predniSONE 20 MG TAB 40 MG PO (08:35)
[2022-09-20] MEDS: Metoprolol 12.5 MG TAB PO (08:35)
[2022-09-20] MEDS: Acetaminophen 325 MG TAB 650 MG PO ×3 (08:35→16:02)
[2022-09-20] MEDS: Nystatin POWDER 60 GM JAR TP (08:37)
--- NOTE | 2022-09-20 09:52 | PT.INTREAT ---
Date of service: 09/20/22 Time of Service: 09:00 PT Notes Visit Reasons: Congestive heart failure Inpatient Physical Therapy Treatment Note [facility] Date: 09/20/22 PRECAUTIONS: Fall, standard, activity as tolerated. SUBJECTIVE: Patient reports feeling better to day, wiggles right great toe cautiously for emphasis. Supine in bed, agreeable to therapy, would like to try walking. OBJECTIVE: PAIN: Yes in right great toe, entire medial right foot, worse when bearing weight through foot. BED MOBILITY/TRANSFERS Rolling L/R: mod assist Supine-sit: mod assist Sit-supine: mod assist Sit-stand: CGA Stand-sit: CGA Bed-Chair: CGA with verbal and tactile cues for safety Chair-bed: CGA with verbal and tactile cues for safety THERACT: Transfer training including bed to chair, chair to chair. Verbal and tactile cues required for safety. GAIT Assistive Device: FWW Weight bearing: full Assist: CGA, occasional min assist with FWW management. Distance: 12 feet Deviation: antalgic gait pattern, fearful of falling, poor control of walker (tends to push it too far out, then struggles to get it back.) Verbal cues, encouragement and reassurance that this therapist has the wheelchair close and will not allow the patient to fall. VITALS: Closely monitored by nursing staff. ASSESSMENT: Patient tolerates therapy well, is frustrated at end of treatment because he thought [he] was feeling a lot better today and expected to perform better than he did. However, patient was able to ambulate a short distance today, where yesterday he was unable to ambulate at all. PLAN: Continue global strengthening per plan of care until patient is medically cleared for discharge. Patient may benefit from a short inpatient rehab stay. Per PT Julieta Farley and Dr Queen, try post op shoe to protect patient's right foot during ambulation. Post op shoe fitted to patient, however, he does not feel as though he can do any more walking this morning. TREATMENT CODE/TIME: 94886 Gait 30 minutes, [id number] Ther Act 14 minutes beginning at 9:00
[2022-09-20 10:01] LABS: Abs Immature Grans 0.07 10^3/uL (0.0-0.06); Absolute Basophil Count 0.05 10^3/uL (0.0-0.2); Absolute Eosinophil Count 0.04 10^3/uL (0.0-0.7); Absolute Monocyte Count 1.64 10^3/uL (0.1-0.8); Basophils % 0.4; Eosinophils % 0.3; HCT 46.6 % (40.0-50.0); HGB 14.8 g/dL (13.5-17.5); Immature Grans % 0.6; MCH 27.7 pg (27.0-33.0); MCHC 31.8 % (32.0-36.0); MCV 87 fL (80-95); MPV 9.5 fL (8.0-11.0); Monocytes % 13.3; Neutrophils % 72.4; Platelet Count 177 10^3/uL (130-400); RBC 5.35 10^6/uL (4.36-5.78); RDW 13.8 % (11.8-14.1); RDW-SD 44.3 fL
[2022-09-20] MEDS: Famotidine 20 MG TAB PO (10:02)
[2022-09-20 10:07] LABS: Absolute Neutrophil Count 8.91 10^3/uL (1.2-6.7)
--- NOTE | 2022-09-20 10:14 | PDOC.CMPRO ---
Date of service: 09/20/22 Time of Service: 10:14 Care Management Progress Note Progress Note Text Progress Note Text: S/O:Raffy was sitting up in bed when CM met with him. A: Raffy is an 81 year old man admitted on 09/16/22 with CHF P: Anticipate Raffy will discharge home with? new home health services for PT when medically cleared by provider.? He will follow up with his PCP and Cardiology and transport with family. CM will continue to support Raffy and assess for discharge planning concerns. :
[2022-09-20 10:29] LABS: Diff Comment Diff Reviewed; RBC Morphology Normal
[2022-09-20 10:32] LABS: Anion Gap 9.5 mmol/L (3-11); BUN 75 mg/dL (7-18); CO2 28.5 mmol/L (21.0-32.0); CREATININE 2.1 mg/dL (0.70-1.30); Calcium 10.7 mg/dL (8.5-10.1); Chloride 105 mmol/L (98-107); Estimated GFR 30.85 (mL/min/1.73m2); Glucose 113 mg/dL (74-106); Potassium 4.5 mmol/L (3.5-5.1); Sodium 143 mmol/L (136-145)
[2022-09-20 11:11] VITALS: BP 117/75; PULSE 77; RESP 16; TEMP 36.5; O2SAT 91
--- NOTE | 2022-09-20 15:07 | PDOC.CMDIS ---
Date of service: 09/20/22 Time of Service: 15:07 LACE Index Scoring Tool Questions: Length of Stay (in days): 4 - 6 Was the patient admitted via the E.D.?: Yes Comorbidities: Liver or Renal Disease E.D. Visits: 2 Answers: Total Score: 14 Risk of Readmission: High Risk Care Management Discharge Plan Reason for Hospitalization: CHF Discharge Plan: Raffy will discharge home with new home health services for PT. His gait became unsteady, partly because he developed gout while hospitalized, but also his knee was buckling. He was given a brace to help stabilize his knee and did much better. He will follow up with his PCP and Cardiology and transport with family. Patient/Family Education Needs: Review discharge instructions, limitations, activity, follow up plan, Ask Me Three Services Needed at Discharge: Home Health Care Services and Physical Therapy
--- NOTE | 2022-09-20 15:35 | W.PM.DS.N ---
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 Has been placed on prednisone burst. Has been given postop shoe for ambulation to help with the pain. (2) Acute exacerbation of congestive heart failure: Status: Acute Asessment and Plan: Aggressively diuresed on Lasix drip and then down stepped to oral. Improvement in peripheral edema. Did experience acute on chronic renal impairment which did stabilize and improve with de-escalation. His lisinopril was also placed on hold at this time. He did not require any IV hydration and his creatinine is now improving toward his baseline of 1.6-1.8. He was up to 2.8 at 1 point during hospitalization but now down to 2.1 at discharge. He has been stable on his home dose of spironolactone and furosemide we will continue at discharge. Echocardiogram Conclusion Normal left ventricular wall thickness and chamber size.? Ejection fraction is 55%.? 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: Status: Acute (5) Acute on chronic renal failure: Status: Acute Asessment and Plan: Creatinine down to 2.1 from a high of 2.8 his baseline 1.6-1.8 Discharge Plan Disposition Patient Disposition: Home W/Home Health Services Condition: Stable Discharge Details Reason For Visit: CHF Admit Date/Time: 09/16/22 13:04 Admit Provider: Stef Abernathy Attending Provider: Stef Abernathy Primary Care Provider: Elana Green Hospital Course Hospital Course: 81-year-old male patient multiple comorbidities including congestive heart failure chronic renal insufficiency chronic use of anticoagulants who was admitted for congestive heart failure diuresed on a Lasix drip. Hospital course was complicated with acute on chronic renal failure and gout. Kidney functions are improving off aggressive diuresis. He is being discharged home to resume his previous medications he was placed on prednisone for his gout flare was given a supply of famotidine for GI prophylaxis as he is on chronic anticoagulation and a small course of oxycodone due to significant pain. Discharge discussed with Dr. Queen Home Meds and New Rx's Prescriptions: New prednisone 20 mg Tablet 40 mg PO DAILY Qty: 8 0RF famotidine 20 mg Tablet 20 mg PO BID Qty: 60 0RF oxycodone 5 mg Tablet 5 mg PO Q6H PRN PRNQty: 10 0RF Continued (DME) IV Fluids See Rx Instructions .Route .MEDSUPPLY Qty: 500 0RF Rx Instructions: IVFluids NS, 500cc, over 1-2 hours with BP Check 2' Dehydration per 's report (d/w PCP) metoprolol tartrate 25 mg tablet 12.5 mg PO DAILY Qty: 45 3RF spironolactone 25 mg tablet 25 mg PO DAILY Qty: 90 3RF Hold Instructions: diuretics on hold 2' ckd,uti Rx Instructions: Continue with afternoon lasix polyvinyl alcohol [Artificial Tears (polyvin alc)] 15 ML drops 1 drp Ophthalmic PRN PRN acetaminophen [Acetaminophen Extra Strength] 500 MG tablet 1,000 mg PO PRN PRN furosemide [Lasix] 20 mg tablet 20 mg PO BID Qty: 180 3RF Hold Instructions: diuretics on hold 2' ckd,uti Rx Instructions: For LE edema, hold 2nd dose for hypotension or dehydration rivaroxaban 10 mg tablet 10 mg PO DAILY Qty: 30 0RF Rx Instructions: Lower dose per [facility] [place], 11/19/21. Agree. Take with meals. lisinopril 40 mg tablet 20 mg PO DAILY Qty: 90 3RF Discharge Instructions Instructions: Heart Failure (DC), Gout (ED) Stand Alone Forms: Nursing Discharge Form Referrals: Elana Green DO [Primary Care Provider] - 09/27/22 2:00 pm Activity:: Activity as Tolerated Equipment/Supplies:: No Equipment Needed Diet:: As Tolerated Discharge Orders Discharge Orders: Discharge Order (Routine); Ordered 09/20/22 Ordered By: Erna Navas Discharge Data Discharge Date/Time-TO BE ENTERED AT DEPARTURE: 09/20/22 16:53 DS: Summary Time Spent with Patient providing and/or coordinating discharge services: Greater than 30 minutes Status at Discharge Functional status at discharge: uses cane/walker Overall status at discharge: patient is progressing back to baseline Mental Status: mental status grossly normal Speech and Movement: speech and movement normal Mood: congruent mood Affect: normal affect Exam Const General: comfortable, no acute distress and ill appearing chronically Nutritional Appearance: obese Orientation: alert, awake and oriented x3 HENMT Head: normal to inspection, normocephalic and atraumatic Mouth: oral mucosae normal Chest Chest: normal inspection of the chest Resp Effort & Inspection: normal respiratory effort Auscultation: diminished lung sounds, no rales, no rhonchi and no wheezes Cardio Rate: regular rate GI Inspection: distended and obesity Palpation: firm and nontender Skin Lesions: no lesions Rashes: rashes noted (erythema to right great toe) Neuro General: patient alert, patient awake and patient oriented x3 Extrem General: edema (improved from yesterday) Laterality: bilateral Psych Mental Status: mental status grossly normal Speech and Movement: speech and movement normal Mood: congruent mood Affect: normal affect DS: Data Vitals/I&O Vitals and I&O: Vital Signs Temperature 36.5 C 09/20/22 11:11 Temperature Source Tympanic 09/20/22 11:11 Pulse 77 09/20/22 11:11 Pulse Rhythm Regular 09/20/22 08:40 Pulse 80 09/16/22 14:01 Respiratory Rate 16 09/20/22 11:11 Respiratory Effort Normal 09/20/22 08:40 Respiratory Depth Normal 09/20/22 08:40 Respiratory Pattern Normal 09/20/22 08:40 Blood Pressure 117/75 09/20/22 11:11 Blood Pressure Mean 108 09/16/22 14:01 Blood Pressure Position Sitting 09/16/22 09:19 Pulse Oximetry 91 L 09/20/22 11:11 Oxygen Delivery Method Room Air 09/20/22 11:11 Oxygen Flow Rate 0 09/20/22 11:11 Fraction of Inspired Oxygen (FIO2) 1 09/18/22 23:47 Pain Level 0 09/20/22 11:11 Intake & Output 09/19/22 09/20/22 09/20/22 23:59 11:59 23:59 Intake Total 400 / 520 270 / 270 Output Total 200 / 350 Balance 200 / 170 270 / 270 Weight 118.3 kg Intake: Oral 400 / 520 270 / 270 Output: Urine 200 / 350 Other: Urine Color Pale Yellow Yellow Urine Appearance Clear Clear Urine Odor None Comment pt incontinent at this time of urine. pt incontinent pt incontinent of urine Voiding Methods Urinal Diaper Incontinent Data Completed and Pending Labs on day of discharge: Labs from last 24 hours 09/20/22 09/20/22 09:45 09:45 WBC 12.30 H RBC 5.35 Hgb 14.8 Hct 46.6 MCV 87 MCH 27.7 MCHC 31.8 L RDW 13.8 Plt Count 177 MPV 9.5 Immature Gran % 0.6 Neutrophils % 72.4 Lymphocytes % 13.0 Monocytes % 13.3 Eosinophils % 0.3 Basophils % 0.4 Nucleated RBC % 0.0 Absolute Neutrophils 8.91 H Absolute Lymphocytes 1.60 Absolute Monocytes 1.64 H Absolute Eosinophils 0.04 Absolute Basophils 0.05 RBC Morphology Normal Sodium 143 Potassium 4.5 Chloride 105 Carbon Dioxide 28.5 Anion Gap 9.5 BUN 75 H Creatinine 2.1 H Est GFR (CKD-EPI 2020) 30.85 Glucose 113 H Calcium 10.7 H PFSH All Active Problems (Updated 09/21/22 @ 15:50 by Erna Navas NP) Acute on chronic renal failure (Acute) 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 Not a surgical candidate. Cane helping - may need training.. Osteoarthritis of left knee (Acute) Steroid injection: 12/07/2020 Leg edema (Acute) Resolves with activity, qAM, 04/2022.. (Worsening, re-start furosemide, 10/2020) Edema (Acute) b/l general .. trial compression and lasix Renal insufficiency (Chronic) becoming CKD, Stage 2-3.. 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 incidental finding on US Benign hypertension (12/09/05) <140/85; BP was high at time of colonoscopy so Dr. Taylor started him on HCTZ 2005. High BP readings @ ophtho, urol . turns out to be 2' finesteride, Dr. Smallwood d/c'd .. will follow up in July 2018. 125/85 today, 06/2018, ik. 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 difficile colitis RX Vanco DVT (deep venous thrombosis) New DVT, 02/2021. Xarelto started. Resolved, Eliquis D/C'd 07/2020 by Surg. 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 denies this stated that this was due to an interaction a year ago where having the masks on and he his hard of hearing they stated he had dementia which his and current PCP stated he does not. Obesity, Class II, BMI 35-39.9, no comorbidity (02/15/11) His goal 220 (100kg); 191=87kg=BMI 30 Pain in joint, other specified sites (02/15/11) Surgical History Arthroscopy (02/10/84) in [place], Left knee Hx of cataract removal with insertion of prosthetic lens 12/11/20 [place], [facility] Nuclear sclerotic cataract of right eye Posterior subcapsular age-related cataract, right eye S/P cholecystectomy (01/24/20) S/P ERCP Family History Son Age: 60 No problems noted. 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
--- NOTE | 2022-09-20 15:38 | PDOC.HHF2F_ITS ---
Home Health Referral Physical Therapist: Check all that apply Increase strength & endurance for safe mobility at home: Ordered To design/establish home maintenance program: Ordered Fall reduction therapy program for patient with history of frequent falls: Ordered Home safety evaluation and teaching/gait training including stair management (if applicable): Ordered Home Bound Status Describe why leaving home would require a considerable and taxing effort: Side effects from pain medication (sedation/drowsiness) and Safety Concerns: describe Encounter Date and Reason: I certify that a FTF encounter for this patient was performed on September 20, 2022 and that such encounter was related to the primary reason the patient requires home health services. The encounter was conducted in the following manner: * By me as the certifying physician, RUG SETTER AXMINSTER, PA or * By an inpatient physician, RUG SETTER AXMINSTER or PA during an inpatient stay who communicated findings to me, Certification And Authentication I certify that I composed the above information based on my clinical judgment relating to this patient's medical condition and, if applicable, clinical findings communicated to me by the NPP or inpatient physician who performed the FTF encounter. Name of Provider that will be monitoring home health services: Elana Green
[2022-09-20 15:39] VITALS: BP 118/75; PULSE 62; TEMP 36.8; O2SAT 94
--- NOTE | 2022-09-23 13:28 | INDS_ITS ---
PT Notes Visit Reasons: Congestive heart failure Physical Therapy Inpatient Discharge Summary Treatment Dates: 09/17/2022 - 09/20/22 Referring Doctor: Stef Godoy MD PT Orders: PT CONSULT: Fall safety assessment Precautions: Fall. Standard. Activity as tolerated. This document serves as a summary of care. No PT services were provided on this date. Patient Profile/Admitting Diagnosis: Raffy Mobley is an 81-year-old male admitted to the ED due to worsening cough, productive with clear sputum, and shortness of breath. Patient is admitted for management of CHF exacerbation, hypertension, and generalized weakness. Patient was seen for 5 sessions of PT intervention over the course of 4 days. He was able to demonstrate safety and mobility sufficient to allow for safe return home with HH services. Social History/Home Situation: Lives with in a private home. Independent with use of single-point cane indoors and outdoors. Equipment Owned/DME: SPC, FWW Subjective: none obtained Objective: General Observation: Telemetry monitoring in place. Had been on oxygen supplementation via NC but RT Andreia discharged after session as patient maintain saturation above 92% on room air with walking Mental Status: Alert and oriented as to person, place, time, and purpose. Able to pay attention, focus, and respond appropriately. Pain: Denies Vital Signs: Oxygen supplementation maintained at 92% on room air after ambulation activity ROM: Right Upper Extremity: Shoulder Flexion WFL. Shoulder abduction WFL. Elbow flexion WFL. Wrist flexion WFL. Functional opening and closing of hand WFL. Left Upper Extremity: Shoulder Flexion WFL. Shoulder abduction WFL. Elbow flexion WFL. Wrist flexion WFL. Functional opening and closing of hand WFL. Right Lower Extremity: Hip flexion lacks the last 25% of AROM due to abdominal pannus. Hip abduction WFL. Knee flexion 20 degrees to 90 degrees. Knee extension -20 degrees. Ankle dorsiflexion to neutral only. Ankle plantarflexion WFL. Left Lower Extremity: Hip flexion lacks the last 25% of AROM due to abdominal pannus. Hip abduction WFL. Knee flexion 20 degrees to 90 degrees. Knee extension -20 degrees. Ankle dorsiflexion to neutral only. Ankle plantarflexion WFL. Strength: Right Upper Extremity: Shoulder flexors 4-/5. Shoulder abductors 4-/5. Elbow flexors 4-/5. Elbow extensors 4-/5. Mechanical Technical Service Specialist strong. Left Upper Extremity: Shoulder flexors 4-/5. Shoulder abductors 4-/5. Elbow flexors 4-/5. Elbow extensors 4-/5. Mechanical Technical Service Specialist strong. Right Lower Extremity: Hip flexors 3-/5. Hip abductors 4-/5. Knee flexors 4-/5. Knee extensors 4-/5. Ankle dorsiflexors 4-/5. Ankle plantarflexors 4-/5. Left Lower Extremity: Hip flexors 3-/5. Hip abductors 4-/5. Knee flexors 4-/5. Knee extensors 4-/5. Ankle dorsiflexors 4-/5. Ankle plantarflexors 4-/5. BED MOBILITY/TRANSFERS? Rolling L/R: mod assist Supine-sit: mod assist? Sit-supine: mod assist ? Sit-stand: CGA? Stand-sit: CGA ? Bed-Chair: CGA with verbal and tactile cues for safety ? Chair-bed:? CGA with verbal and tactile cues for safety THERACT: Transfer training including bed to chair, chair to chair. Verbal and tactile cues required for safety. ? GAIT? Assistive Device: FWW? Weight bearing: full Assist: CGA, occasional min assist with FWW management. ? Distance:? 12 feet ? Balance: Static Sitting: Normal Dynamic Sitting: Normal Static Standing: Fair Dynamic Standing: Fair Assessment: Patient presented with limited mobility due to acute medical issues. Patient participated in 5 sessions of PT intervention over the course of 4 days. They were able to demonstrate safety and mobility sufficient to allow for safe return home with caregiver support and PT. Goals: Goals X1 week 1. Supine-Sit independent (progressing toward) 2. Sit-Supine independent(progressing toward) 3. Sit-Stand independent(progressing toward) 4. Stand-Sit independent with FWW(progressing toward) 5. Bed-Chair independent with FWW(progressing toward) 6. Chair-Bed independent with FWW(progressing toward) 7. Independent gait on level surface with use of FWW for at least 300 feet without report of pain nor dyspnea (progressing toward) 8. Independent stair negotiation while holding onto B rails for at least 2 steps without report of pain nor dyspnea(progressing toward) 9. Independent with home exercise program (not met) 10. Good static and dynamic standing balance/tolerance (not met) Plan of Care/Treatment Plan: D/C from PT services in acute care setting. DISCHARGE RECOMMENDATIONS: [X] Home with services. When medically cleared by hospitalist. Patient will benefit from home health PT services in order to progress mobility level using least restrictive assistive ambulatory device, assess home safety, identify additional equipment needs, and establish a functional maintenance program that will increase ability of patient to remain at home. TREATMENT CODE/TIME: none Thank you for the opportunity to participate in the care of this patient. Christine Rosales PT, DPT [facility] [place], [place]
== END 2022-09-20 16:53 | disposition home health service (06) | DRG 291 ==
LOC: ER 13:20 → MS 14:25
PROVIDERS: Nurse Practitioner Acute Care; Admitting Provider Internal Medicine; Emergency Provider Student in an Organized Health Care Education/Training Program; PCP Student in an Organized Health Care Education/Training Program; Visit Provider Internal Medicine
DX: I50.33 Acute on chronic diastolic (congestive) heart failure (principal); I13.0 Hypertensive heart and chronic kidney disease with heart failure and stage 1 through stage 4 chronic kidney disease, or unspecified chronic kidney disease; Z68.41 Body mass index [BMI] 40.0-44.9, adult; N18.30 Chronic kidney disease, stage 3 unspecified; E78.5 Hyperlipidemia, unspecified; Z86.718 Personal history of other venous thrombosis and embolism; E66.9 Obesity, unspecified; N40.1 Benign prostatic hyperplasia with lower urinary tract symptoms; R35.1 Nocturia; Z79.01 Long term (current) use of anticoagulants; G47.33 Obstructive sleep apnea (adult) (pediatric); I08.0 Rheumatic disorders of both mitral and aortic valves; R35.0 Frequency of micturition; M47.816 Spondylosis without myelopathy or radiculopathy, lumbar region; M10.071 Idiopathic gout, right ankle and foot
CPT/HCPCS: 36415; 80048; 80053; 85652; 87637; 93005; 93306; 94618; 97110; 97116; 97162; 97530; 99285; 71045; 71046; 73610; 73630; 83735; 83880; 84443; 84484; 84550; 85025; 86140; 93010; 94640; 94760; 99223; 99232; 99233; 99239; J1940; J1941; J3490; J7512; J7613; J7620

== ENCOUNTER 2022-10-04 02:18 | Outpatient (CLI) | payer MEDICARE, SELFPAY ==
[2022-10-04 12:54] LABS: Anion Gap 6.6 mmol/L (3-11); CO2 27.4 mmol/L (21.0-32.0); CREATININE 2.4 mg/dL (0.70-1.30); Chloride 105 mmol/L (98-107); Estimated GFR 26.28 (mL/min/1.73m2); Glucose 136 mg/dL (74-106); Magnesium 2.3 mg/dL (1.8-2.4); Potassium 4.8 mmol/L (3.5-5.1); Sodium 139 mmol/L (136-145)
[2022-10-04 13:13] LABS: BUN 81 mg/dL (7-18)
== END 2022-10-04 02:19 | disposition home or self-care (01) ==
LOC: LOS 02:18
PROVIDERS: PCP Student in an Organized Health Care Education/Training Program; Visit Provider Student in an Organized Health Care Education/Training Program
DX: E87.6 Hypokalemia (principal); I50.9 Heart failure, unspecified; M10.371 Gout due to renal impairment, right ankle and foot; N17.9 Acute kidney failure, unspecified; N18.9 Chronic kidney disease, unspecified; Z91.89 Other specified personal risk factors, not elsewhere classified
CPT/HCPCS: 36415; 80048; 83735

== ENCOUNTER 2022-10-21 01:50 | Outpatient (CLI) | payer MEDICARE, SELFPAY ==
[2022-10-21 12:51] LABS: Anion Gap 5.3 mmol/L (3-11); BUN 63 mg/dL (7-18); CO2 30.7 mmol/L (21.0-32.0); CREATININE 2.1 mg/dL (0.70-1.30); Calcium 10.5 mg/dL (8.5-10.1); Chloride 102 mmol/L (98-107); Estimated GFR 30.66 (mL/min/1.73m2); Glucose 127 mg/dL (74-106); Potassium 4.1 mmol/L (3.5-5.1); Sodium 138 mmol/L (136-145)
== END 2022-10-21 01:51 | disposition home or self-care (01) ==
LOC: LOS 01:50
PROVIDERS: PCP Student in an Organized Health Care Education/Training Program; Visit Provider Student in an Organized Health Care Education/Training Program
DX: N17.9 Acute kidney failure, unspecified (principal)
CPT/HCPCS: 36415; 80048

== ENCOUNTER 2022-12-02 11:17 | Outpatient (REF) | payer MEDICARE, SELFPAY | END 2022-12-02 11:18 | disposition home or self-care (01) | LOC: LBN 11:17 | PROVIDERS: PCP Student in an Organized Health Care Education/Training Program; Visit Provider Nurse Practitioner | DX: R31.29 Other microscopic hematuria (principal) | CPT/HCPCS: 87086 ==

== ENCOUNTER → 2022-12-30 02:12 | Outpatient (CLI) | payer MEDICARE, SELFPAY ==
--- NOTE | 2022-12-30 10:50 | DI.RAD_ITS ---
Exam(s) XR FOOT RT COMPLETE EXAM: XR FOOT RT COMPLETE CLINICAL HISTORY: eval for fx; dx gout, GOUT DUE TO RENAL IMPAIRMENT, GREAT TOE PAIN, M10.371. TECHNIQUE: 2D digital imaging was performed. Three views. COMPARISON: CR XR FOOT RT COMPLETE from 09/20/2022 FINDINGS: BONES: No acute fracture is present. No bony destructive lesion is seen. Previously mentioned tiny e rosions at the 1st MTP joint are not seen on the current exam. Small heel spur. JOINTS: No dislocation present. Mild degenerative changes. SOFT TISSUE: Mild calcification in plantar fascia. Dorsal soft tissue swelling. IMPRESSION: No evidence of fracture or bony erosions. DATA REPOSITORY: RADIATION DOSE DELIVERED:
== END ==
PROVIDERS: PCP Student in an Organized Health Care Education/Training Program; Visit Provider Nurse Practitioner Adult Health
DX: M10.371 Gout due to renal impairment, right ankle and foot (principal); M79.674 Pain in right toe(s)
CPT/HCPCS: 73630

== ENCOUNTER 2022-12-30 10:32 | Outpatient (REF) | payer MEDICARE, SELFPAY | END 2022-12-30 10:33 | disposition home or self-care (01) | LOC: LBN 10:32 | PROVIDERS: PCP Student in an Organized Health Care Education/Training Program; Visit Provider Nurse Practitioner | DX: R31.9 Hematuria, unspecified (principal) | CPT/HCPCS: 87086 ==

== ENCOUNTER → 2023-01-09 00:31 | Outpatient (CLI) | payer MEDICARE, SELFPAY ==
--- NOTE | 2023-01-09 10:52 | DI.CT_ITS ---
Exam(s) CT ABDOMEN PELVIS WO EXAM: CT ABDOMEN PELVIS WO CLINICAL HISTORY: intermittent hematuria, r31.9. TECHNIQUE: Imaging Protocol: Axial computed tomography images with coronal and sagittal reformatted images were created and reviewed CONTRAST MATERIAL: Intravenous: none Oral: None COMPARISON: CT CT ABDOMEN PELVIS WO from 04/27/2022 FINDINGS: VISUALIZED LUNG BASES: No nodules nor pleural effusions evident. ABDOMEN: There is no ascites. LIVER: Well-defined lobulated hypodensity in left hepatic lobe is unchanged, measuring 3.3 x 2.5 cm a nd probably a benign cyst. There are no new additional focal findings in the liver. GALLBLADDER/BILIARY: Gallbladder is again noted to be surgically absent. CBD is not dilated. PANCREAS: No evidence of pancreatic mass nor dilatation of the pancreatic duct. SPLEEN: Spleen is not enlarged. No obvious intrasplenic lesions. ADRENALS: There are no significant adrenal masses. KIDNEYS:Right kidney unremarkable. Previously described calculi in the left kidney are again noted. However, the larger calculus in the left kidney has now migrated into the upper left ureter UPJ leve l. This calculus measures 11x 8 mm. There does not appear to be significant dilatation of the collec ting system above this level. The smaller calculus is unchanged in position, remaining in the lower pole calyx. The left ureter is not dilated below the UPJ. ABDOMINAL AORTA: Abdominal aorta is not enlarged. LYMPH NODES: There is no retroperitoneal nor paraaortic adenopathy. ABDOMINAL WALL: There is a fat only containing left inguinal hernia. No bowel loops therein. No bow el obstruction. GI: There is no evidence of bowel obstruction, free air, nor abscess. PELVIS: LYMPH NODES: There is no intrapelvic nor inguinal adenopathy. GI: No evidence of appendicitis.No evidence of sigmoid diverticulitis. URINARY BLADDER: No calculi nor obvious masses evident. The previously present 3 millimeter calculus seen in the bladder on the April [address]22 CT scan is no longer seen and has most probably passed. REPRODUCTIVE: Moderately enlarged prostate. Bladder is not distended. OSSEOUS: No significant osseous lesions. No fractures. Degenerative anterolisthesis L4 upon L5. IMPRESSION: 1. When compared to the CT scan of 04/27/2022, the largest calculus in the left kidney has now migrat ed to the upper left ureter/UPJ level, most probably responsible for the hematuria. There is no obvi ous dilatation of the left collecting system above this level at this time. There is another calculu s again noted in the left left kidney lower pole calyx which has not changed position. The previousl y present 3 millimeter calculus in the bladder seen on the prior study is no longer seen and has most probably passed. 2. No calculi seen in the opposite-right kidney. 3. No concerning renal masses evident. 4. Solitary benign liver cyst is unchanged from prior study. RADIATION DOSE DELIVERED: Total DLP DATA REPOSITORY: All CT scans at this facility are submitted to the National Radiology Data Registry (NRDR) Dose Index Registry (DIR) with the [employer] (ACR). RADIATION OPTIMIZATION: All CT scans at this facility use at least one of these dose optimization te chniques: automated exposure control; mA and/or kV adjustment per patient size (includes targeted exa ms where dose is matched to clinical indication); or iterative reconstruction.
== END ==
PROVIDERS: PCP Student in an Organized Health Care Education/Training Program; Visit Provider Nurse Practitioner
DX: R31.9 Hematuria, unspecified (principal); N20.0 Calculus of kidney; Q44.6 Cystic disease of liver
CPT/HCPCS: 74176

== ENCOUNTER → 2023-03-10 08:51 | Outpatient (BNVA) | payer MEDICARE, SELFPAY | PROVIDERS: PCP Student in an Organized Health Care Education/Training Program; Referring Provider Student in an Organized Health Care Education/Training Program; Visit Provider Nurse Practitioner Gerontology | DX: N20.0 Calculus of kidney (principal) | CPT/HCPCS: 99213 ==

== ENCOUNTER → 2023-03-13 01:40 | Outpatient (CLI) | payer MEDICARE, SELFPAY ==
--- NOTE | 2023-03-13 07:15 | DI.US_ITS ---
Exam(s) US RENAL EXAM: US RENAL CLINICAL HISTORY: monitoring left renal calculi,N20.0 TECHNIQUE: Ultrasound of both kidneys performed using standard protocol. COMPARISON: US US ECHOCARDIOGRAM from 09/16/2022 FINDINGS: RIGHT KIDNEY: Measures 11.9 cm in length. No cysts evident. Normal cortical thickness and corticomedullary differen tiation .No solid masses No intrarenal calculi nor hydronephrosis. LEFT KIDNEY: Measures 10 cm in length. No cysts evident. Normal cortical thickness and corticomedullary different iaion. No solids masses. There are 2 small echogenic foci in the mid and inferior poles of the left kidney which may represent nonobstructive calculi. URINARY BLADDER: Prevoid volume is 71 cc Postvoid volume is 0 cc No evidence of bladder mass nor diverticuli. Ureterovesical jets: Both not visualized. IMPRESSION: 1. Possible nonobstructive calculi in the left kidney. No hydronephrosis. 2. Mild symmetrical cortical thinning commensurate with this patient's age. Nonvisualization of both ureterovesical jets in the urinary bladder. DATA REPOSITORY:
== END ==
PROVIDERS: PCP Student in an Organized Health Care Education/Training Program; Visit Provider Nurse Practitioner Gerontology
DX: N20.0 Calculus of kidney (principal)
CPT/HCPCS: 76770

== ENCOUNTER 2023-03-21 02:33 | Outpatient (CLI) | payer MEDICARE, SELFPAY ==
[2023-03-21 12:18] LABS: Anion Gap 9.8 mmol/L (3-11); BUN 41 mg/dL (7-18); CO2 27.2 mmol/L (21.0-32.0); CREATININE 1.7 mg/dL (0.70-1.30); Calcium 10.3 mg/dL (8.5-10.1); Chloride 105 mmol/L (98-107); Estimated GFR 39.51 (mL/min/1.73m2); Glucose 117 mg/dL (74-106); Magnesium 2.4 mg/dL (1.8-2.4); Potassium 4.4 mmol/L (3.5-5.1); Sodium 142 mmol/L (136-145)
== END 2023-03-21 02:34 | disposition home or self-care (01) ==
LOC: LOS 02:33
PROVIDERS: PCP Student in an Organized Health Care Education/Training Program; Visit Provider Student in an Organized Health Care Education/Training Program
DX: N18.9 Chronic kidney disease, unspecified (principal); N17.9 Acute kidney failure, unspecified; Z86.39 Personal history of other endocrine, nutritional and metabolic disease
CPT/HCPCS: 36415; 80048; 83735

== ENCOUNTER 2023-05-19 13:11 | Outpatient (CLI) | payer MEDICARE, SELFPAY ==
--- NOTE | 2023-05-19 09:36 | DI.RAD_ITS ---
Exam(s) XR KNEE RT 3V AP,LAT,AZEB EXAM: XR KNEE RT 3V AP,LAT,AZEB CLINICAL HISTORY: R knee pain. TECHNIQUE: 2D digital imaging was performed. Three views. COMPARISON: CR XR KNEE LT 3V AP,LAT,AZEB from 10/24/2020 FINDINGS: BONES: No acute fracture is present. No bony destructive lesion is seen. JOINTS: Moderate to severe narrowing of the medial femoral tibial joint space. Chondrocalcinosis. M ild periarticular spurring. No joint effusion is seen. SOFT TISSUE: Normal. IMPRESSION: Moderate to severe degenerative changes of the medial femoral tibial joint.. DATA REPOSITORY: RADIATION DOSE DELIVERED:
== END 2023-05-19 13:12 | disposition home or self-care (01) ==
LOC: DIORS 13:11
PROVIDERS: PCP Student in an Organized Health Care Education/Training Program; Referring Provider Student in an Organized Health Care Education/Training Program; Visit Provider Student in an Organized Health Care Education/Training Program
DX: M17.11 Unilateral primary osteoarthritis, right knee (principal); M17.12 Unilateral primary osteoarthritis, left knee
CPT/HCPCS: 20610; 73562; J1040

== ENCOUNTER 2023-06-17 05:42 | Outpatient (CLI) | payer MEDICARE, SELFPAY ==
[2023-06-17 12:32] LABS: Anion Gap 8.7 mmol/L (3-11); BUN 41 mg/dL (7-18); CO2 28.3 mmol/L (21.0-32.0); CREATININE 1.7 mg/dL (0.70-1.30); Calcium 10.4 mg/dL (8.5-10.1); Chloride 107 mmol/L (98-107); Estimated GFR 39.51 (mL/min/1.73m2); Glucose 131 mg/dL (74-106); Magnesium 2.2 mg/dL (1.8-2.4); Potassium 4.1 mmol/L (3.5-5.1); Sodium 144 mmol/L (136-145)
[2023-06-17 17:55] LABS: Parathyroid Hormone,Intact 261 pg/mL (19-88)
[2023-06-19 02:49] LABS: Albumin 3.7 g/dL (3.4-5.0)
[2023-06-19 03:02] LABS: Vitamin D 25 Total 23.2 ng/mL (30-100)
== END 2023-06-17 05:43 | disposition home or self-care (01) ==
LOC: LOS 05:42
PROVIDERS: PCP Student in an Organized Health Care Education/Training Program; Visit Provider Student in an Organized Health Care Education/Training Program
DX: I10 Essential (primary) hypertension (principal); N20.0 Calculus of kidney; E83.52 Hypercalcemia; Z91.89 Other specified personal risk factors, not elsewhere classified
CPT/HCPCS: 36415; 80048; 82306; 82040; 83735; 83970; 84443

== ENCOUNTER 2023-07-15 05:07 | Outpatient (CLI) | payer MEDICARE, SELFPAY ==
[2023-07-15 09:57] LABS: Lab Add On Test DONE
[2023-07-15 12:31] LABS: Abs Immature Grans 0.07 10^3/uL (0.0-0.06); Absolute Basophil Count 0.06 10^3/uL (0.0-0.2); Absolute Eosinophil Count 0.06 10^3/uL (0.0-0.7); Absolute Lymphocyte Count 1.64 10^3/uL (1.2-3.4); Absolute Monocyte Count 0.67 10^3/uL (0.1-0.8); Absolute Neutrophil Count 4.41 10^3/uL (1.2-6.7); Basophils % 0.9 %; Eosinophils % 0.9 %; HCT 49.9 % (40.0-50.0); HGB 15.9 g/dL (13.5-17.5); Lymphocytes % 23.7 %; MCH 28.3 pg (27.0-33.0); MCHC 31.9 % (32.0-36.0); MCV 89 fL (80-95); MPV 10.8 fL (8.0-11.0); Monocytes % 9.7 %; Neutrophils % 63.8 %; Platelet Count 129 10^3/uL (130-400); RBC 5.61 10^6/uL (4.36-5.78); RDW 14.7 % (11.8-14.1); RDW-SD 47.8 fL; WBC 6.91 10^3/uL (4.4-10.8)
[2023-07-15 12:45] LABS: Hemoglobin A1C 6.2 % (<5.7)
[2023-07-15 12:54] LABS: Anion Gap 8.2 mmol/L (3-11); BUN 36 mg/dL (7-18); CO2 28.8 mmol/L (21.0-32.0); CREATININE 1.7 mg/dL (0.70-1.30); Calcium 10.3 mg/dL (8.5-10.1); Chloride 106 mmol/L (98-107); Estimated GFR 39.51 (mL/min/1.73m2); Glucose 114 mg/dL (74-106); Magnesium 2.2 mg/dL (1.8-2.4); Potassium 3.9 mmol/L (3.5-5.1); Sodium 143 mmol/L (136-145); TSH (W/Ref FT4) 1.32 uIU/mL (0.36-3.74)
[2023-07-15 19:12] LABS: Parathyroid Hormone,Intact 230 pg/mL (19-88)
== END 2023-07-15 05:08 | disposition home or self-care (01) ==
LOC: LOS 05:08
PROVIDERS: PCP Student in an Organized Health Care Education/Training Program; Visit Provider Student in an Organized Health Care Education/Training Program
DX: E83.52 Hypercalcemia (principal); R79.89 Other specified abnormal findings of blood chemistry; D64.9 Anemia, unspecified; Z91.89 Other specified personal risk factors, not elsewhere classified; R53.83 Other fatigue; I15.0 Renovascular hypertension
CPT/HCPCS: 36415; 80048; 83036; 83735; 83970; 84443; 85025

== ENCOUNTER → 2023-09-11 07:52 | Outpatient (BNVA) | payer MEDICARE, SELFPAY | PROVIDERS: PCP Student in an Organized Health Care Education/Training Program; Referring Provider Student in an Organized Health Care Education/Training Program | DX: M17.11 Unilateral primary osteoarthritis, right knee (principal); M17.12 Unilateral primary osteoarthritis, left knee | CPT/HCPCS: 20610; J1010 ==

== ENCOUNTER → 2023-09-24 10:29 | Outpatient (BNVA) | payer MEDICARE, SELFPAY | PROVIDERS: PCP Student in an Organized Health Care Education/Training Program; Visit Provider Nurse Practitioner Gerontology | DX: N40.0 Benign prostatic hyperplasia without lower urinary tract symptoms (principal); N20.0 Calculus of kidney | CPT/HCPCS: 99214 ==

== ENCOUNTER 2024-02-16 10:17 | Emergency (ER) | payer MEDICARE, SELFPAY ==
[2024-02-16 10:25] VITALS: BP 108/72; PULSE 88; RESP 16; TEMP 36.4; O2SAT 92
[2024-02-16 12:11] LABS: Bilirubin Negative (Negative); Blood Large (Negative); Clarity Sl Cloudy (Clear); Glucose Negative (Negative); Ketones Negative (Negative); Leukocyte Esterase Negative (Negative); Nitrite Negative (Negative); Specific Gravity 1.025 (1.005-1.025); Urobilinogen 0.2 mg/dL (Up to 0.2); pH 5.5 (5-8)
[2024-02-16 12:12] VITALS: BP 141/77; PULSE 64; RESP 16; TEMP 36.4; O2SAT 96
[2024-02-16 12:15] LABS: Abs Immature Grans 0.06 10^3/uL (0.0-0.06); Absolute Basophil Count 0.04 10^3/uL (0.0-0.2); Absolute Eosinophil Count 0.07 10^3/uL (0.0-0.7); Absolute Lymphocyte Count 1.59 10^3/uL (1.2-3.4); Absolute Monocyte Count 1.06 10^3/uL (0.1-0.8); Absolute Neutrophil Count 5.66 10^3/uL (1.2-6.7); Basophils % 0.5 %; Eosinophils % 0.8 %; HGB 16.1 g/dL (13.5-17.5); Immature Grans % 0.7 %; Lymphocytes % 18.8 %; MCH 28.3 pg (27.0-33.0); MCHC 32.9 % (32.0-36.0); MCV 86 fL (80-95); Monocytes % 12.5 %; Neutrophils % 66.7 %; RBC 5.69 10^6/uL (4.36-5.78); RDW 14.6 % (11.8-14.1); RDW-SD 46.4 fL; WBC 8.48 10^3/uL (4.4-10.8)
[2024-02-16 12:23] LABS: Bacteria Few HPF (Negative); C & S Indicated? No; Casts Negative LPF (Negative); Crystals Negative HPF (Negative); Epithelial Cells Few HPF (Negative); Mucus Trace (Negative); RBC 20-50 HPF (0-2); WBC 0-2 HPF (0-5)
[2024-02-16 12:30] LABS: Diff Comment Diff Reviewed; RBC Morphology Normal
--- NOTE | 2024-02-16 13:11 | DI.CT_ITS ---
Exam(s) CT LUMBAR SPINE RECONS CT ABDOMEN PELVIS WO EXAM: CT ABDOMEN PELVIS WO CLINICAL HISTORY: left flank and back pain, hx of stones. TECHNIQUE: Imaging Protocol: Axial computed tomography images with coronal and sagittal reformatted images were created and reviewed. COMPARISON: CT CT CHEST PE CTA from 12/30/[address] ABDOMEN PELVIS WO from 01/09/2023 FINDINGS: ABDOMEN: Lung Bases: Normal where visualized. Liver: Normal density. Stable hepatic cyst. Gallbladder and biliary tract: Status post cholecystectomy. No significant biliary ductal dilatation . Pancreas: Normal density, no abnormal calcifications or inflammatory process. Spleen: Normal. Kidneys: Normal size, contour and axis.There has been interval increase in size of the stone in the l eft renal pelvis which now measures 1.4 cm compared to 1.0 cm on the prior examination. No significa nt dilatation of the collecting system is seen. Vascular calcifications are also seen in the left re nal pelvis. No masses seen. Adrenal glands: No mass is seen. Lymph nodes: Within normal limits. Abdominal Aorta: Abdominal portion non-dilated. Atherosclerotic calcification is present. PELVIS: Bladder:Symmetric distention, no gross wall thickening. Bowel: No obstruction or bowel wall thickening. The stomach is incompletely distended limiting evalua tion. There is a normal appendix present. Peritoneal cavity: No ascites, collection or mesenteric inflammatory response. No free air. Reproductive organs: Unremarkable as visualized. Bones: Within normal limits. Soft Tissues: There is a small fat containing umbilical hernia. There is a fat containing left ingui nal hernia. CT lumbar spine recons: Age-appropriate degenerative changes are present in the lumbar spine. Findin gs include disc space narrowing and endplate osteophytes. Vacuum discs and subchondral sclerosis are present. No acute fractures or subluxations are seen in the lumbar spine. Degenerative changes see n at L4-L5 cause moderate central spinal canal stenosis. IMPRESSION: 1. Interval increase in size of the left renal pelvic calcification now measuring 1.4 cm. No signifi cant dilatation of the left renal collecting system is noted. 2. Degenerative changes in the lumbar spine most marked at L4-L5 where there is moderate central spin al canal stenosis. RADIATION DOSE DELIVERED: Total DLP DATA REPOSITORY: All CT scans at this facility are submitted to the National Radiology Data Registry (NRDR) Dose Index Registry (DIR) with the [employer] (ACR). RADIATION OPTIMIZATION: All CT scans at this facility use at least one of these dose optimization te chniques: automated exposure control; mA and/or kV adjustment per patient size (includes targeted exa ms where dose is matched to clinical indication); or iterative reconstruction.
[2024-02-16 13:25] LABS: Abs Immature Grans 0.06 10^3/uL (0.0-0.06); Absolute Basophil Count 0.05 10^3/uL (0.0-0.2); Absolute Eosinophil Count 0.07 10^3/uL (0.0-0.7); Absolute Lymphocyte Count 1.75 10^3/uL (1.2-3.4); Absolute Monocyte Count 1.03 10^3/uL (0.1-0.8); Basophils % 0.6 %; Eosinophils % 0.8 %; HCT 48.7 % (40.0-50.0); HGB 15.5 g/dL (13.5-17.5); Immature Grans % 0.7 %; Lymphocytes % 19.6 %; MCHC 31.8 % (32.0-36.0); MCV 88 fL (80-95); MPV 9.9 fL (8.0-11.0); Monocytes % 11.6 %; Neutrophils % 66.7 %; Platelet Count 143 10^3/uL (130-400); RBC 5.54 10^6/uL (4.36-5.78); RDW 14.3 % (11.8-14.1)
[2024-02-16 13:26] LABS: Absolute Neutrophil Count 5.94 10^3/uL (1.2-6.7); WBC 8.91 10^3/uL (4.4-10.8)
[2024-02-16 13:38] LABS: ALT 18 U/L (16-63); AST 12 U/L (15-37); Albumin 3.6 g/dL (3.4-5.0); Alkaline Phosphatase 94 U/L (46-116); Anion Gap 3.5 mmol/L (3-11); BUN 28 mg/dL (7-18); Bilirubin, Total 1.26 mg/dL (0.2-1.0); CO2 31.5 mmol/L (21.0-32.0); CREATININE 1.5 mg/dL (0.70-1.30); Chloride 107 mmol/L (98-107); Estimated GFR 45.62 (mL/min/1.73m2); Glucose 97 mg/dL (74-106); Lipase 71 U/L (<78); Sodium 142 mmol/L (136-145); Total Protein 7.4 g/dL (6.4-8.2)
[2024-02-16 13:42] LABS: Calcium 10.7 mg/dL (8.5-10.1)
[2024-02-16 14:52] VITALS: BP 152/95; PULSE 80; RESP 18; O2SAT 94
--- NOTE | 2024-02-17 08:52 | ED.GENADUL_ITS ---
Discharge Plan Disposition Patient Disposition: Home Discharge Details Clinical Impression: Acute left lumbar radiculopathy, Nephrolithiasis Primary Care Provider: Elana Green ED Provider: Heidi Bryant Home Meds and New Rx's Prescriptions: New prednisone 20 mg tablet 20 mg PO DAILY Qty: 5 0RF Continued cholecalciferol (vitamin D3) [Vitamin D3] 25 mcg (1,000 unit) tablet,chewable 25 mcg PO DAILY Qty: 100 0RF furosemide [Lasix] 20 mg tablet 20 mg PO BID Qty: 180 3RF Rx Instructions: 10/11/2022: Per IK: May have a one additional dose of Furosemide if SOB.(Double dose) ketoconazole 2 % cream 1 applic topical DAILY 90 Days Qty: 60 1RF Rx Instructions: Apply to toenails once daily polyvinyl alcohol [Artificial Tears (polyvin alc)] 15 ML drops 1 drp Ophthalmic PRN PRN acetaminophen [Acetaminophen Extra Strength] 500 MG tablet 1,000 mg PO PRN PRN acetaminophen [Tylenol Arthritis Pain] 650 mg tablet extended release 650 mg PO Q12H PRN (Reason: pain) Qty: 60 2RF metoprolol tartrate 25 mg tablet 12.5 mg PO DAILY Qty: 45 3RF spironolactone 25 mg tablet 25 mg PO DAILY Qty: 90 3RF Rx Instructions: Continue with afternoon lasix Xarelto 10 mg tablet See Rx Instructions .ROUTE .COMPLEX Qty: 90 3RF Dose Instruction: TAKE 1 TABLET BY MOUTH EVERY DAY WITH A MEAL Rx Instructions: TAKE 1 TABLET BY MOUTH EVERY DAY WITH A MEAL Discharge Instructions Additional Instructions: Please follow-up with your primary care doctor regarding your stenosis, you may benefit from follow-up with spine at [facility] take the prednisone as prescribed Follow-up with Dr. Smallwood as previously discussed Please return earlier should you have fever, chills, difficulty urinating, or should new concerns arise Referrals: Elana Green DO [Primary Care Provider] - 1 day Discharge Data Discharge Date/Time-TO BE ENTERED AT DEPARTURE: 02/16/24 14:52 HPI General Date/Time Provider Initiated Documentation: 02/16/24 10:35 . HPI Narrative: This 83-year-old male presents with left sided back pain with radiation down his left lower extremity. Denies any weakness numbness or tingling. Denies any changes in bowel or bladder sensations or groin. Has had some blood in his urine intermittently probation. History of stones but this feels differently per patient. Denies fever or chills. Denies difficulties emptying. Denies any falls or injuries has been taking Tylenol for pain. Denies known exacerbating or alleviating factors Related Data Home Medications ?Medication ?Instructions ?Recorded ?Confirmed acetaminophen 500 mg tablet 1,000 mg PO PRN PRN 06/11/12 02/16/24 (Acetaminophen Extra Strength) polyvinyl alcohol 1.4 % eye drops 1 drp ophthalmic (eye) PRN PRN 06/11/12 02/16/24 (Artificial Tears (polyvinyl alcohol)) cholecalciferol (vitamin D3) 25 25 mcg PO DAILY #100 tabs 06/24/23 02/16/24 mcg (1,000 unit) chewable tablet (Vitamin D3) furosemide 20 mg tablet (Lasix) 20 mg PO BID #180 tabs 09/25/23 02/16/24 ketoconazole 2 % topical cream 1 applic topical DAILY 3 months 09/25/23 02/16/24 #60 grams acetaminophen 650 mg 650 mg PO Q12H PRN pain #60 tabs 12/26/23 02/16/24 tablet,extended release (Tylenol Arthritis Pain) metoprolol tartrate 25 mg tablet 12.5 mg (1/2 x 25 mg) PO DAILY #45 01/06/24 02/16/24 tabs spironolactone 25 mg tablet 25 mg PO DAILY edema #90 tabs 01/06/24 02/16/24 rivaroxaban 10 mg tablet (Xarelto) See Rx Instructions .Route 01/09/24 02/16/24 .COMPLEX #90 tabs prednisone 20 mg tablet 20 mg PO DAILY #5 tabs 02/16/24 Previous Rx's ?Medication ?Instructions ?Recorded cholecalciferol (vitamin D3) 25 25 mcg PO DAILY #100 tabs 06/24/23 mcg (1,000 unit) chewable tablet (Vitamin D3) furosemide 20 mg tablet (Lasix) 20 mg PO BID #180 tabs 09/25/23 ketoconazole 2 % topical cream 1 applic topical DAILY 3 months 09/25/23 #60 grams acetaminophen 650 mg 650 mg PO Q12H PRN pain #60 tabs 11/15/24 tablet,extended release (Tylenol Arthritis Pain) metoprolol tartrate 25 mg tablet 12.5 mg (1/2 x 25 mg) PO DAILY #45 01/06/24 tabs spironolactone 25 mg tablet 25 mg PO DAILY edema #90 tabs 01/06/24 rivaroxaban 10 mg tablet (Xarelto) See Rx Instructions .Route 01/09/24 .COMPLEX #90 tabs prednisone 20 mg tablet 20 mg PO DAILY #5 tabs 02/16/24 Allergies Allergy/AdvReac Type Severity Reaction Status Date / Time amlodipine AdvReac Mild nightmares/restless Verified 02/16/24 10:29 sleep hydrochlorothiazide AdvReac Mild possible Verified 02/16/24 10:29 Erectile dysfunction finasteride AdvReac Hypertensio Verified 02/16/24 10:29 n General Stated Complaint: Urinary THALIA: 3 Exam Narrative Exam Narrative: Alert and oriented 83-year-old gentleman in no acute distress without reproducible pain on exam, no abdominal tenderness, no CVA tenderness, no abdominal bruit or pulsatile mass, distal pulses intact all 4 extremities Course Vital Signs Vital signs: Vital Signs Temperature 36.4 C L 02/16/24 10:25 Pulse 88 02/16/24 10:25 Respiratory Rate 16 02/16/24 10:25 Blood Pressure 108/72 02/16/24 10:25 Pulse Oximetry 92 02/16/24 10:25 Temperature 36.4 C L 02/16/24 12:12 Temperature Source Temporal Artery Scan 02/16/24 12:12 Pulse 80 02/16/24 14:52 Respiratory Rate 18 02/16/24 14:52 Blood Pressure 152/95 H 02/16/24 14:52 Blood Pressure Position Sitting 02/16/24 12:12 Pulse Oximetry 94 02/16/24 14:52 Oxygen Delivery Method Room Air 02/16/24 12:12 Oxygen Flow Rate 0 02/16/24 12:12 Pain Level 6 02/16/24 12:13 Comment 650mg Tylenol BID 02/16/24 12:12 Lab/Test Results Lab/Test Results: Laboratory Tests Range/Units 02/16/24 02/16/24 12:05 13:15 WBC (4.4-10.8) 10^3/uL 8.48 8.91 RBC (4.36-5.78) 10^6/uL 5.69 5.54 Hgb (13.5-17.5) g/dL 16.1 15.5 Hct (40.0-50.0) % 49.0 48.7 MCV (80-95) fL 86 88 MCH (27.0-33.0) pg 28.3 28.0 MCHC (32.0-36.0) % 32.9 31.8 L RDW (11.8-14.1) % 14.6 H 14.3 H Plt Count (130-400) 10^3/uL 143 MPV (8.0-11.0) fL 9.9 Immature Gran % % 0.7 0.7 Neutrophils % % 66.7 66.7 Lymphocytes % % 18.8 19.6 Monocytes % % 12.5 11.6 Eosinophils % % 0.8 0.8 Basophils % % 0.5 0.6 Nucleated RBC % (0.0-0.3) % 0.0 0.0 Absolute Neutrophils (1.2-6.7) 10^3/uL 5.66 5.94 Absolute Lymphocytes (1.2-3.4) 10^3/uL 1.59 1.75 Absolute Monocytes (0.1-0.8) 10^3/uL 1.06 H 1.03 H Absolute Eosinophils (0.0-0.7) 10^3/uL 0.07 0.07 Absolute Basophils (0.0-0.2) 10^3/uL 0.04 0.05 RBC Morphology Normal Sodium Cancelled 142 Potassium Cancelled 4.0 Chloride Cancelled 107 Carbon Dioxide Cancelled 31.5 Anion Gap Cancelled 3.5 BUN Cancelled 28 H Creatinine Cancelled 1.5 H Est GFR (CKD-EPI 2020) Cancelled 45.62 Glucose Cancelled 97 Calcium Cancelled 10.7 H Total Bilirubin Cancelled 1.26 H AST Cancelled 12 L ALT Cancelled 18 Alkaline Phosphatase Cancelled 94 Total Protein Cancelled 7.4 Albumin Cancelled 3.6 Lipase (<78) U/L 71 Urine Color (Yellow) Yellow Urine Clarity (Clear) Sl Cloudy Urine pH (5-8) 5.5 Ur Specific [place] (1.005-1.025) 1.025 Urine Protein (Neg-Trace) mg/dL 30 H Urine Ketones (Negative) mg/dL Negative Urine Blood (Negative) Large H Urine Nitrite (Negative) Negative Urine Bilirubin (Negative) Negative Urine Urobilinogen (Up to 0.2) mg/dL 0.2 Ur Leukocyte Esterase (Negative) Negative Urine RBC (0-2) HPF 20-50 H Urine WBC (0-5) HPF 0-2 Ur Epithelial Cells (Negative) HPF Few Urine Crystals (Negative) HPF Negative Urine Bacteria (Negative) HPF Few Urine Casts (Negative) LPF Negative Urine Mucus (Negative) Trace Ur Culture Indicated? No Urine Glucose (Negative) mg/dL Negative Medical Decision Making This 83-year-old gentleman presents with back pain with radiation down his left lower leg with intermittent hematuria. Patient denies any fever or chills. CT was ordered for further evaluation of patient's lumbar spine and CT abdomen and pelvis noncontrast. Patient has a large 1.4 cm stone in his renal pelvis which is likely causing the hematuria. There is no evidence of secondary infection based on urinalysis and patient feels as though it is empty incompletely. On his CT lumbar spine he does have spinal stenosis and he is encouraged to follow- up with his doctor regarding this finding. He was placed on prednisone 5 neck several days. He is on Eliquis but his urine does not have clots nor is it significantly bloody and I think at this time he can continue on his Eliquis safely with close outpatient reassessment. Dr. Smallwood actually evaluated patient in the emergency department and will schedule him for surgery at this facility should it be appropriate, he will follow-up with patient regarding stone. Patient remains hemodynamically stable here, he will follow-up with his primary care physician regarding the spinal stenosis and follow-up with Dr. Smallwood regarding the nephrolithiasis. He is given low threshold to return should he have new or worsening complaints Quality:SDMT Health Related Social Needs: No Data to Display PFSH All Active Problems (Updated 02/16/24 @ 14:35 by EMILIE Champion) Nephrolithiasis (Chronic) Acute left lumbar radiculopathy (Acute) Edema of both lower extremities (Acute) Well-managed, with exercise/activity; b/l general .. trial compression and lasix Elevated parathyroid hormone (Acute) Osteoarthritis of right knee (Acute) Steroid injection: 05/19/2023 Hypercalcemia (Acute) CKD (chronic kidney disease) stage 3, GFR 30-59 ml/min (Acute) Stage 3, 2022, with LALA (GFR <30!) 2' over-diures.. Hx stage 2-3 (2021) Edema of foot (Acute) Knee pain, bilateral (Acute) ? 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 (Worsening, re-start furosemide, 10/2020) Renal calculus Hematuria: CT (01/09/23) vs. CT (04/27/2022):.. largest calculus in the left kidney has now migrated to the upper left ureter/UPJ level (prob responsible for hematuria)..no obvious dilatation of the left collecting system above this level..another calculus again noted in the left left kidney lower pole calyx (no changed position)..previously present 3 mm calculus in the bladder no longer seen and has most probably passed. 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 07/2021 Left knee pain Acute on chronic. Not a surgical candidate. Cane helping - may need training.. BPH w/o urinary obs/LUTS (02/15/11) nocturiaX1-2; INCR 3X 09/2012 Acute on chronic renal failure Acute exacerbation of congestive heart failure Hosp; resolved .. but with too much fluid restriction post hosp! Bakers cyst Rt, 4cm.. incidental finding on US DVT (deep venous thrombosis) New DVT, 02/2021. Xarelto started. Resolved, Eliquis D/C'd 07/2020 by Surg. C. 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 denies this stated that this was due to an interaction a year ago where having the masks on and he his hard of hearing they stated he had dementia which his and current PCP stated he does not. 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 Taylor started him on HCTZ 2005. High BP readings @ ophtho, urol . turns out to be 2' finesteride, Dr. Smallwood d/c'd .. will follow up in July 2018. 125/85 today, 06/2018, ik. Surgical History Hx of cataract removal with insertion of prosthetic lens 12/11/20 [place], [facility] Posterior subcapsular age-related cataract, right eye Nuclear sclerotic cataract of right eye S/P cholecystectomy (01/24/20) S/P ERCP Arthroscopy (02/10/84) in CT, Left knee Family History Son Age: 60 No problems noted. 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
== END 2024-02-16 14:52 | disposition home or self-care (01) ==
PROVIDERS: Student in an Organized Health Care Education/Training Program; Emergency Provider Physician Assistant; PCP Student in an Organized Health Care Education/Training Program
DX: N20.0 Calculus of kidney; M54.16 Radiculopathy, lumbar region; R31.0 Gross hematuria
CPT/HCPCS: 36415; 80053; 83690; 99284; 74176; 81003; 81015; 85025

== ENCOUNTER → 2024-03-04 14:09 | Outpatient (BNVA) | payer MEDICARE, SELFPAY | PROVIDERS: PCP Student in an Organized Health Care Education/Training Program; Referring Provider Student in an Organized Health Care Education/Training Program; Visit Provider Student in an Organized Health Care Education/Training Program | DX: M17.11 Unilateral primary osteoarthritis, right knee (principal); M17.12 Unilateral primary osteoarthritis, left knee | CPT/HCPCS: 20610; J1010 ==

== ENCOUNTER 2024-03-18 08:35 | Day surgery (SDC) | payer MEDICARE, SELFPAY ==
[2024-03-18] VITALS (29 sets, daily range): BP systolic 117–164; BP diastolic 47–107; PULSE 50–84; RESP 11–29; TEMP 36.4–36.5; O2SAT 91–97; BMI 45.6
--- NOTE | 2024-03-18 09:01 | HPE_ITS ---
Date of service: 03/18/24 Time of Service: 09:01 Assessment and Plan Assessment and plan (1) Renal calculus: Assessment and plan: We will plan on ureteroscopy and holmium laser lithotripsy of his large left- sided stone. Given the size of the stone, we likely should expect a staged procedure with a repeat ureteroscopy to address residual stone fragments after this first procedure. History of Present Illness History of Present Illness Chief Complaint: Left UPJ stone Narrative: This is an 83-year-old gentleman who has a history of hyperparathyroidism and hypercalcemia. He had a known left-sided kidney stone that was asymptomatic. He recently had a visit to the emergency department for gross hematuria and left-sided pain. It was found that his kidney stone had increased in size and had migrated to the left upper ureter/UPJ region. The stone now measures 1.4 cm in size. Since his emergency department visit, he has had no renal colic and no gross hematuria. We had asked his primary care providers to address his anticoagulants and he was started on a Lovenox bridge. He presents now for ureteroscopy and holmium laser lithotripsy. Given the size of his stone, we would expect that we will need to place a ureteral stent after today's procedure and arrange for a repeat ureteroscopy in a week or 2 to address any residual stone fragments. Review of Systems Narrative: No fevers or chills Hx cataracts. No vision change or dysphasia Hyperparathyroidism. No diabetes No cough or hemoptysis No chest pain or palpitations No nausea, vomiting, hepatitis, ulcers, jaundice No seizures, strokes or peripheral neuropathy Chronically anticoagulated. No anemia Knee pain. Chronic back pain. No gout PFSH All Active Problems (Updated 03/18/24 @ 00:03 by KERMIT BARRERA) Edema of both lower extremities (Acute) Well-managed, with exercise/activity; b/l general .. trial compression and lasix Elevated parathyroid hormone (Acute) Osteoarthritis of right knee (Acute) Steroid injection: 03/04/24; 05/19/2023 Hypercalcemia (Acute) CKD (chronic kidney disease) stage 3, GFR 30-59 ml/min (Acute) Stage 3, 2022, with LALA (GFR <30!) 2' over-diures.. Hx stage 2-3 (2021) Edema of foot (Acute) Knee pain, bilateral (Acute) ? 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 (Worsening, re-start furosemide, 10/2020) Renal calculus Hematuria: CT (01/09/23) vs. CT (04/27/2022):.. largest calculus in the left kidney has now migrated to the upper left ureter/UPJ level (prob responsible for hematuria)..no obvious dilatation of the left collecting system above this level..another calculus again noted in the left left kidney lower pole calyx (no changed position)..previously present 3 mm calculus in the bladder no longer seen and has most probably passed. 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 07/2021 Left knee pain Acute on chronic. Not a surgical candidate. Cane helping - may need training.. BPH w/o urinary obs/LUTS (02/15/11) nocturiaX1-2; INCR 3X 09/2012 Acute on chronic renal failure Acute exacerbation of congestive heart failure Hosp; resolved .. but with too much fluid restriction post hosp! Bakers cyst Rt, 4cm.. incidental finding on US DVT (deep venous thrombosis) New DVT, 02/2021. Xarelto started. Resolved, Eliquis D/C'd 07/2020 by Surg. C. 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 denies this stated that this was due to an interaction a year ago where having the masks on and he his hard of hearing they stated he had dementia which his and current PCP stated he does not. 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 Taylor started him on HCTZ 2005. High BP readings @ ophtho, urol . turns out to be 2' finesteride, Dr. Smallwood d/c'd .. will follow up in July 2018. 125/85 today, 06/2018, ik. Surgical History Hx of cataract removal with insertion of prosthetic lens 12/11/20 [facility], [facility] Posterior subcapsular age-related cataract, right eye Nuclear sclerotic cataract of right eye S/P cholecystectomy (01/24/20) S/P ERCP Arthroscopy (02/10/84) in CT, Left knee Family History Son Age: 60 No problems noted. 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 [email or web address] Current gender identity: male What type of physical activity do you participate in: none Working smoke detector in home: Yes Fire extinguisher in home: Yes Carbon monox detector in home: Yes Additional Social history: unable to assess privately Meds Allergies and Home Medications Allergies Allergy/AdvReac Type Severity Reaction Status Date / Time amlodipine AdvReac Mild nightmares/restless Verified 03/18/24 09:09 sleep hydrochlorothiazide AdvReac Mild possible Verified 03/18/24 09:09 Erectile dysfunction finasteride AdvReac Hypertensio Verified 03/18/24 09:09 n Home Medications ?Medication ?Instructions ?Recorded ?Confirmed ?Type polyvinyl alcohol 1.4 % eye drops 1 drp ophthalmic (eye) PRN PRN 06/11/12 03/18/24 History (Artificial Tears (polyvinyl alcohol)) furosemide 20 mg tablet (Lasix) 20 mg PO BID #180 tabs 09/25/23 03/18/24 Rx ketoconazole 2 % topical cream 1 applic topical DAILY 3 months 09/25/23 03/18/24 Rx #60 grams acetaminophen 650 mg 650 mg PO Q12H PRN pain #60 tabs 12/26/23 03/18/24 Rx tablet,extended release (Tylenol Arthritis Pain) metoprolol tartrate 25 mg tablet 12.5 mg (1/2 x 25 mg) PO DAILY #45 01/06/24 03/18/24 Rx tabs spironolactone 25 mg tablet 25 mg PO DAILY edema #90 tabs 01/06/24 03/18/24 Rx rivaroxaban 10 mg tablet (Xarelto) See Rx Instructions .Route 01/09/24 03/15/24 Rx .COMPLEX #90 tabs enoxaparin 40 mg/0.4 mL 40 mg (0.4 mL) subcut DAILY #4 mL 03/02/24 03/18/24 Rx subcutaneous syringe (Lovenox) Exam Const General: cooperative Neck Neck: supple Resp Effort & Inspection: normal respiratory effort Auscultation: clear to auscultation bilaterally Cardio Rate: regular rate Rhythm: regular rhythm GI Palpation: soft and no masses Neuro General: patient alert, patient awake and patient oriented x3 Time Spent Time spent with Patient: <40 minutes Time was spent: other
[2024-03-18] MEDS: Lactated Ringers 1,000 ML 80 ML IV (09:17)
--- NOTE | 2024-03-18 09:35 | ANES.PREOP_ITS ---
General Info Date of Service Date Performed: 03/18/24 Height: 5 ft 4 in Weight: 120.656 kg Body Mass Index (BMI): 45.6 Surgical Procedure: Operation Date: 03/18/24 09:40 Proposed Procedure Side Surgeon p Cystoscopy/Laser/Retrograde/Ureteroscopy/ Stent Insertion Left Nuno Smallwood MD Meds Allergies and Home Medications Allergies Allergy/AdvReac Type Severity Reaction Status Date / Time amlodipine AdvReac Mild nightmares/restless Verified 03/18/24 09:09 sleep hydrochlorothiazide AdvReac Mild possible Verified 03/18/24 09:09 Erectile dysfunction finasteride AdvReac Hypertensio Verified 03/18/24 09:09 n Home Medication ?Medication ?Instructions ?Recorded polyvinyl alcohol 1.4 % eye drops 1 drp ophthalmic (eye) PRN PRN 06/11/12 (Artificial Tears (polyvinyl alcohol)) furosemide 20 mg tablet (Lasix) 20 mg PO BID #180 tabs 09/25/23 ketoconazole 2 % topical cream 1 applic topical DAILY 3 months 09/25/23 #60 grams acetaminophen 650 mg 650 mg PO Q12H PRN pain #60 tabs 12/26/23 tablet,extended release (Tylenol Arthritis Pain) metoprolol tartrate 25 mg tablet 12.5 mg (1/2 x 25 mg) PO DAILY #45 01/06/24 tabs spironolactone 25 mg tablet 25 mg PO DAILY edema #90 tabs 01/06/24 rivaroxaban 10 mg tablet (Xarelto) See Rx Instructions .Route 01/09/24 .COMPLEX #90 tabs enoxaparin 40 mg/0.4 mL 40 mg (0.4 mL) subcut DAILY #4 mL 03/02/24 subcutaneous syringe (Lovenox) Current Visit Medications: Current Medications Generic Name Dose Route Start Last Admin Trade Name Freq PRN Reason Stop Dose Admin Cefazolin Sodium 3,000 mg/ 100 mls @ 200 mls/hr 03/18/24 06:00 Sodium Chloride IVPB 03/18/24 23:59 PREOP PIPER Ringer's Solution 1,000 mls @ 80 mls/hr 03/18/24 09:15 03/18/24 09:17 IV 04/17/24 09:14 80 mls/hr INFUSION PIPER Administration IV Miscellaneous Supplies 1 each 03/18/24 06:00 Iv Access IV 03/18/24 23:59 DIRECTED PIPER Sodium Chloride 0 ml 03/18/24 06:00 Normal Saline Flush 10 Ml Syr IV 03/18/24 23:59 PRN PRN Sodium Chloride 0 ml 03/18/24 06:00 Normal Saline 10 Ml Vial IJ 03/18/24 23:59 DIRECTED PRN Sterile Water 0 ml 03/18/24 06:00 Water,Injection,Sterile 10 Ml Vial IJ 03/18/24 23:59 DIRECTED PRN PFSH Active Problems Active Problems: Problem Status Onset Code Edema of both lower extremities Acute R60.0 Elevated parathyroid hormone Acute R79.89 Osteoarthritis of right knee Acute M17.11 Hypercalcemia Acute E83.52 CKD (chronic kidney disease) stage 3, GFR 30-59 ml/min Acute N18.30 Edema of foot Acute R60.0 Knee pain, bilateral Acute M25.561, M25.562 Onychomycosis Acute B35.1 Posterior subcapsular age-related cataract of left eye Resolved H25.042 Nuclear age-related cataract, left eye Resolved H25.12 Lumbar spondylosis Acute M47.816 Lumbar back pain Acute M54.50 Lumbar adjacent segment disease with spondylolisthesis Acute M51.36, M43.16 jail (current) use of anticoagulants Acute Z79.01 Osteoarthritis of left knee Acute M17.12 HTN (hypertension) Chronic I10 Abdominal aortic aneurysm Resolved 09/10/10 I71.4 Hyperlipidemia Chronic 10/24/04 E78.5 Medical History Medical History (Updated 03/18/24 @ 00:03 by KERMIT BARRERA) Leg edema Resolves with activity, qAM, 04/2022.. (Worsening, re-start furosemide, 10/2020) Renal calculus Hematuria: CT (01/09/23) vs. CT (04/27/2022):.. largest calculus in the left kidney has now migrated to the upper left ureter/UPJ level (prob responsible for hematuria)..no obvious dilatation of the left collecting system above this level..another calculus again noted in the left left kidney lower pole calyx (no changed position)..previously present 3 mm calculus in the bladder no longer seen and has most probably passed. 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 07/2021 Left knee pain Acute on chronic. Not a surgical candidate. Cane helping - may need training.. BPH w/o urinary obs/LUTS (02/15/11) nocturiaX1-2; INCR 3X 09/2012 Acute on chronic renal failure Acute exacerbation of congestive heart failure Hosp; resolved .. but with too much fluid restriction post hosp! Bakers cyst Rt, 4cm.. incidental finding on US DVT (deep venous thrombosis) New DVT, 02/2021. Xarelto started. Resolved, Eliquis D/C'd 07/2020 by Surg. C. 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 denies this stated that this was due to an interaction a year ago where having the masks on and he his hard of hearing they stated he had dementia which his and current PCP stated he does not. 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 Taylor started him on HCTZ 2005. High BP readings @ ophtho, urol . turns out to be 2' finesteride, Dr. Smallwood d/c'd .. will follow up in July 2018. 125/85 today, 06/2018, ik. Surgical History Surgical History Hx of cataract removal with insertion of prosthetic lens 12/11/20 [facility], [facility] Posterior subcapsular age-related cataract, right eye Nuclear sclerotic cataract of right eye S/P cholecystectomy (01/24/20) S/P ERCP Arthroscopy (02/10/84) in CT, Left knee Tobacco Smoking/Tobacco Use Status: Former Tobacco Use Alcohol Alcohol Intake: never Substance Use Substance use: Never Substance use type: does not use Vital Signs and Lab Results Vital Signs Most Recent Vital Signs in EMR: Most Recent Vital Signs Temp Pulse Resp BP Pulse Ox 36.4 C L 84 16 158/107 H 95 03/18/24 09:03 03/18/24 09:03 03/18/24 09:03 03/18/24 09:03 03/18/24 09:03 Lab Results Blood Type / Crossmatch: No Data to Display Complete Blood Count: No Data to Display Complete Metabolic Panel: No Data to Display Liver Function Panel: No Data to Display Coagulation Panel: No Data to Display Cardiac Panel: No Data to Display Arterial Blood Gas: No Data to Display Venous Blood Gas: No Data to Display Pancreas Panel: No Data to Display Thyroid Panel: No Data to Display Infectious Disease: No Data to Display Blood Cultures: No Data to Display Toxicology Panel: No Data to Display Imaging and Studies Imaging and Studies Study information below may be from another EMR and interpreted by another provider. Please see original notes in EMR for more complete details. EKG Summary: Conclusion Sinus rhythm...normal P axis, V-rate 60- 99 Atrial premature complexes...SV complexes w/ short R-R intvls Left ventricular hypertrophy...multiple voltage criteria Inferior infarct, old...Q >35mS, II III aVF Echocardiogram Summary: Patient Name: Raffy Mobley Unit #: [id number] Loc: [place] Ordering Provider: Stef Abernathy M.D. Status: ADM IN Primary Care Provider: Elana Green DO Date of Exam: 09/16/22 Sex: M Admission Date: 09/16/22 : 1940 Age: 81 APPROVED REPORT EXAM: Comprehensive 2D, Doppler, and color-flow Echocardiogram Patient Location: ER Room/Bed: 4 [employer] Specialist: Anisa Chairez RDCS (AE) Indications: CHF, Evaluate LV and RV Other Information Study Quality: Fair. Technically limited study due to body habitus, inability to position patient exam done supine in the er. Conclusion Normal left ventricular wall thickness and chamber size. Ejection fraction is 55%. Wall motion appears normal Right ventricle is not well visualized but does not appear enlarged Normal left and right atrial size Aortic valve is sclerotic without stenosis or regurgitation Mild mitral annular calcification, trace mitral regurgitation Estimated right ventricular systolic pressure is 18 mmHg Mildly dilated ascending aorta measuring 3.54 cm Wall motion Left Ventricle The left ventricle is normal size. The overall left ventricular systolic function appears normal. Technically limited imaging, unable to position patient. There is normal left ventricular wall thickness. Regional wall motion is grossly normal. There is no ventricular septal defect visualized. LVEF is 55%. Right Ventricle Right ventricle is not well visualized. Right ventricular systolic function could not be assessed. Atria The left atrium size is grossly normal. The right atrium size is grossly normal. The interatrial septum is intact with no evidence for an atrial septal defect. Aortic Valve The Aortic valve is sclerotic. Number of aortic valve leaflets could not be assessed. There is no aortic valvular stenosis. No aortic regurgitation is present. Mitral Valve Mild mitral annular calcification. No evidence of mitral valve stenosis. Trace mitral regurgitation. Tricuspid Valve The tricuspid valve is normal in structure. There is no tricuspid valve stenosis. Trace to mild tricuspid regurgitation. The RVSP is 18..0mmHg. Pulmonic Valve The pulmonary valve is normal in structure. There is no pulmonic valvular stenosis. Trace pulmonic regurgitation. Great Vessels The aortic root is normal in size. The ascending aorta is mildly dilated. Aortic arch is not well visualized. IVC is normal in size and collapses >50% with inspiration. Pericardium There is no pericardial effusion. 2D Dimensions IVSD d PLAX 1.12 cm M: 0.6-1.2 LVPW d PLAX 1.06 cm M: 0.6 - 1.2 LVID d PLAX 4.82 cm M: 4.2 - 5.8 LVDs 3.55 cm M: 2.5 - 4.0 Ao Root d 3.33 cm M: 3.1 - 3.7 Ao Asc Diam d 3.54 cm M: 2.6 - 3.4 LV EF Teichholz 51.3 % FS26.20 % LV Diastology LV E/e MED0.08 (<14)E/A Ratio 0.5 LV E/e LAT0.08 (<14)MV E Vmax 0.43 (0.4-1.3 m/s) MV A Vmax 0.80 (0.4-1.3 m/s) Aortic Valve LVOT Vmax 0.98 m/s LVOT Peak Grad 3.9 mmHg LVOT Mean Grad 2.4 mmHg LVOT Diam s 2.00 cm AoV Vmax1.74 m/s Velocity Ratio 0.56 AoV Peak Grad12.1 mmHg LVOT SV 60.10 mL AoV Mean Grad6.2 mmHg AoV Area VTI1.68 cm2 Mitral Valve MV DT 240 (160-240 msec) MV Vmax TIPS 1.01 m/s MV Mean Grad 1.9 (<2mmHg) MV VTI 0.279 m Pulmonary Valve PV Mean Grad 1.8 mmHgRVOT Peak Gr.1.73 mmHg RVOT Mean Gr.0.85 mmHg RVOT VTI0.130 m RVOT Vmax 0.66 m/s Tricuspid Valve TR Peak Grad 15.0 mmHgTR Vmax 1.94 m/s RA Pressure 3.00 mmHg RVSP (TR) 18.0 mmHg Ordered By: Stef Abernathy M.D. CC: Dictated By: Sharmila Valdez M.D. 09/16/22 1515 <Electronically signed by Sharmila Valdez M.D. in [place]> 09/16/22 1526 Transcribed By: Sharmila Valdez MD This is privileged, confidential information intended only for the provider name d. Any use or distribution by any person other than this provider is strictly prohibited. If you receive this report in error, please notify us immediately at [phone] and return the original report to us at the address above. Thank- you. Anesthesia Assessment and Plan Anesthesia History Personal History: No History of Anesthesia Complications Family History: Family History Unknown Exercise Tolerance Exercise Tolerance: Metabolic Equivalents>4 Pertinent Negatives Pertinent Negatives: No Symptoms of GERD, No Major Pulmonary Symptoms or Complaints and No History of CVA/TIA Cardiac & Pulmonary Exam Cardiac Exam: Normal S1/S2 Heart Sounds Pulmonary Exam: Clear Bilateral Breath Sounds Implantable Cardiac Device Does patient have a Pacemaker or an ICD?: No Airway Exam Known Difficult Airway: No Mallampati Class: 4 Mouth Opening: Normal (> 3cm) Thyromental Distance: Greater than 3 cm Neck Range of Motion: Full ROM Neck Circumference: Normal Teeth Condition: Normal Dentition ASA Classification ASA Score: ASA 3 Emergency Case?: No NPO Status NPO Status: NPO Clears >2 hours, Solids >8 hours Anesthesia Plan Resuscitation Status: Full Code Anesthesia Technique: General Anesthesia Airway Planned: Endotracheal Tube Monitors Used: Standard Monitors
[2024-03-18] MEDS: ceFAZolin 3,000 MG in Normal Saline 100 ML 200 MG IVPB (10:10)
[2024-03-18] MEDS: Lidocaine 2% Jelly 11 ML SYR (10:19)
[2024-03-18] MEDS: Omnipaque 300 MG/ML 50 ML BTL (10:25)
--- NOTE | 2024-03-18 11:54 | PDOC.DSDIS_ITS ---
Date of service: 03/18/24 Discharge Plan Disposition Patient Disposition: Home Condition: Stable Discharge Details Reason For Visit: kidney stone Attending Provider: Nuno Smallwood Primary Care Provider: Edna Muniz Home Meds and New Rx's Prescriptions: No Action furosemide [Lasix] 20 mg tablet 20 mg PO BID Qty: 180 3RF Rx Instructions: 10/11/2022: Per IK: May have a one additional dose of Furosemide if SOB.(Double dose) ketoconazole 2 % cream 1 applic topical DAILY 90 Days Qty: 60 1RF Rx Instructions: Apply to toenails once daily enoxaparin [Lovenox] 40 mg/0.4 mL syringe 40 mg subcut DAILY Qty: 4 0RF Rx Instructions: Stop xarelto two days prior to surgery, change to lovenox; duration at discretion of surgeon polyvinyl alcohol [Artificial Tears (polyvin alc)] 15 ML drops 1 drp Ophthalmic PRN PRN acetaminophen [Tylenol Arthritis Pain] 650 mg tablet extended release 650 mg PO Q12H PRN (Reason: pain) Qty: 60 2RF metoprolol tartrate 25 mg tablet 12.5 mg PO DAILY Qty: 45 3RF Patient Comments: Per pt. always takes this around [id number] 03/15/24-JW spironolactone 25 mg tablet 25 mg PO DAILY Qty: 90 3RF Rx Instructions: Continue with afternoon lasix Xarelto 10 mg tablet See Rx Instructions .ROUTE .COMPLEX Qty: 90 3RF Dose Instruction: TAKE 1 TABLET BY MOUTH EVERY DAY WITH A MEAL Rx Instructions: TAKE 1 TABLET BY MOUTH EVERY DAY WITH A MEAL Discharge Instructions Additional Instructions: OK to restart Xaralto 2/7 as long as no clots in the urine No need to strain urine Followup with me in office for Cystoscopy and stent removal in 2 to 4 weeks Stand Alone Forms: Anesthesia Discharge Inst., [facility] Kali Villegas ([facility]) Referrals: Nuno Smallwood MD [ [facility]YSICIAN] - 03/29/24 1:30 pm Activity:: Activity as Tolerated Shower/Bathe:: 24 hours Diet:: As Tolerated Discharge Orders Discharge Orders: Discharge Order (Routine); Ordered 03/18/24 Ordered By: Nuno Smallwood DS: Diagnosis Discharge Diagnosis (1) Renal calculus:
--- NOTE | 2024-03-18 11:54 | DI.RAD_ITS ---
Exam(s) XR RETROGRADE IN OR EXAM: XR RETROGRADE IN OR CLINICAL HISTORY: RENAL CALCULUS, OR 2. TECHNIQUE: Fluoroscopy was provided for the referring physician for guidance with performing pain cl inic injection procedure. COMPARISON: CT CT ABDOMEN PELVIS WO from 02/16/[address] LUMBAR SPINE RECONS from 02/16/2024 FINDINGS: Please see procedure note for details. Fluoro time: 34.2 seconds RADIATION DOSE DELIVERED: Anselmor=16.6 mGy
--- NOTE | 2024-03-18 12:46 | ROE_ITS ---
Operative Note Operative Note PRE-OP DIAGNOSIS: Kidney stone POST-OP DIAGNOSIS: same PROCEDURE: Cystoscopy, left retrograde pyelogram, left flexible ureteroscopy with holmium laser lithotripsy, insert left ureteral stent SURGEON: Nuno Smallwood ANESTHESIA TYPE: Local By Surgeon and General LMA/ETT Refer to Anesthesia Record ESTIMATED BLOOD LOSS: 5 PATHOLOGY: other (Stone fragments for chemical analysis) COMPLICATIONS: None Patient was transported to: PACU Patient's condition: stable Implants: 6 [place] by 22 to 30 cm left ureteral stent Indications: This is an 83-year-old gentleman who has a history of hyperparathyroidism. He has hypercalcemia. He had a recent emergency department visit for gross hematuria and flank pain. He was found to have a 14 mm stone in the left renal pelvis. As he has been symptomatic from the stone, he presents for Findings: Large stone in the left renal pelvis. Smaller stones in the left lower pole calyx Procedure Description: The patient was given IV antibiotics and brought to the operating room on 03/18/2024. After successful induction of general anesthesia, he was placed in the dorsal lithotomy position. His genitalia was prepped and draped. 2% Xylocaine jelly was instilled into the urethra to act as a local anesthetic. A 22 [place] rigid cystoscope was passed through the urethra into the bladder. Urethra and bladder were inspected using a 30 degree lens. The pendulous, bulbar and membranous urethra's appeared normal with no strictures. The prostatic urethra showed some lateral lobe enlargement and a small median lobe that jotted back into the prostate. The bladder neck was entered and the bladder mucosa was inspected. Both ureteral orifices appeared normal in configuration and location. No blood was seen coming from either orifice. The remainder of the bladder showed no papillary or nodular lesions. The left ureteral orifice was then cannulated with a 5 [place] access catheter. Retrograde pyelogram was obtained by injecting Omnipaque through the access catheter under fluoroscopic guidance. A large filling defect was identified in the left renal pelvis. I then passed a guidewire through the lumen of the access catheter and removed the catheter. I passed a dual-lumen catheter over the wire and positioned a second wire. We chose one of the wires as a working wire and the other as a safety wire. The ureteral access sheath was advanced over the working wire leaving the safety wire in place. I then utilized flexible ureteroscopy to pass the scope up the ureter into the renal pelvis. A large stone was visualized. The stone was then treated with a 272 ?m holmium laser fiber. We utilized a combination of dusting settings and fragmentation settings to treat the stone. Once the stone was fragmented into manageable pieces, I was able to grasp the pieces ended 0 tip stone basket and removed the pieces one by one. Multiple stone fragments were then sent to pathology for chemical analysis. At the completion the procedure, I did not see any large stone burden remaining. I removed the ureteroscope and the ureteral access sheath. I then passed a 6 [place] variable length stent over the safety wire. The proximal end of the stent was present in the renal pelvis and the distal end was in the bladder. The positioning of the stent was confirmed both fluoroscopically and cystoscopically. The patient tolerated this procedure well with no complications. Date of Procedure: 03/18/24
--- NOTE | 2024-03-18 13:00 | W.ANESPOSTOP ---
Postoperative Evaluation Date, Time and Location Date Performed: 03/18/24 Time Performed: 13:00 Patient Location: PACU Vital Signs Most Recent Imported Vital Signs: Most Recent Vital Signs Temp Pulse Resp BP Pulse Ox 36.5 C 50 L 11 L 136/95 H 95 03/18/24 12:28 03/18/24 12:51 03/18/24 12:51 03/18/24 12:51 03/18/24 12:51 Pain Score Most Recent Pain Score: Most Recent Pain Score Pain Level 1 03/18/24 12:57 Assessment Mental Status: Awake (Alert & Oriented to Patient Baseline) Airway and Respiratory Function: Patent airway with normal (patient baseline) respiratory exam (91-93% on RA. I am ordering for Incentive spirometry. PREVENTIVE MEDICINE SPECIALIST aware. ) Cardiovascular Function: Hemodynamically Stable Hydration Status: Adequately Hydrated Nausea & Vomiting: No Nausea or Vomiting Pain: Pain is tolerable per patient Peripheral Nerve Block: Patient did not receive a nerve block
[2024-03-18] MEDS: Phenazopyridine 200 MG TAB PO (13:30)
[2024-03-26 10:09] LABS: Interpretation 100% Uric acid.; Source: Left Kidney
== END 2024-03-18 14:25 | disposition home or self-care (01) ==
PROVIDERS: PCP Nurse Practitioner Family; Visit Provider Urology
PROC: (CPT 52356; principal; 2024-03-18 09:30)
DX: N20.0 Calculus of kidney (principal); I12.9 Hypertensive chronic kidney disease with stage 1 through stage 4 chronic kidney disease, or unspecified chronic kidney disease; N18.30 Chronic kidney disease, stage 3 unspecified; E78.5 Hyperlipidemia, unspecified; E21.3 Hyperparathyroidism, unspecified
CPT/HCPCS: 52356; 74420; 82365; J0131; J0690; J1100; J2003; J2405; J2704; J3010; J3475; Q9967

== ENCOUNTER 2024-03-21 06:20 | Emergency (ER) | payer MEDICARE, SELFPAY ==
[2024-03-21] VITALS (48 sets, daily range): BP systolic 114–155; BP diastolic 57–113; PULSE 91–107; RESP 14–26; TEMP 36.6–36.9; O2SAT 92–96
--- NOTE | 2024-03-21 06:15 | RT.EKG_ITS ---
APPROVED REPORT Exam: Resting ECG Reason for Exam: weakness, ams Patient Location: E HR:102 bpm ECG Measurements Heart Rate 102 AXIS HI 224 P -55 QRSd 94 QRS -31 QT 327 T 54 QTc 426 Conclusion Sinus tachycardia, rate 102 1st degree HB, HI interval 224ms PVCs No STEMI Q waves III, aVF, unchanged from priors
--- NOTE | 2024-03-21 06:30 | DI.CT_ITS ---
Exam(s) CT CHEST/ABD/PEL WO EXAM: CT CHEST/ABD/PEL WO CLINICAL HISTORY: recent urologic surgery, confused and altered. TECHNIQUE: Imaging Protocol: Axial computed tomography images with coronal and sagittal reformatted images were created and reviewed. Computer aided detection (CAD) was utilized. CONTRAST MATERIAL: Intravenous: Omnipaque 350 Contrast volume:100 ml Oral: / no COMPARISON: CT CT ABDOMEN PELVIS WO from 02/16/[address] LUMBAR SPINE RECONS from 02/16/2024 FINDINGS: CHEST: Exam is limited by respiratory motion and poor pulmonary inflation. Tracheobronchial tree: Patent. Pulmonary parenchyma: No consolidation or dominant measurable mass. Increased densities at the left lung base likely reflecting atelectasis. Pleura: No effusion or pneumothorax. Mediastinum: Within normal limits. Aorta: Thoracic portion non-dilated. Moderate atherosclerotic changes. Pulmonary arteries: No visible emboli. Heart: No pericardial effusion. Bones: Unremarkable for age. No lytic or blastic lesions.No compression fractures. Soft tissues: Bilateral gynecomastia. ABDOMEN and PELVIS: Exam is limited by patient arm position creating streak artifacts. Liver: Normal density. Liver cyst again noted in the left lobe. Gallbladder and biliary tract: Cholecystectomy. No biliary dilatation. Pancreas: Normal density, no abnormal calcifications or inflammatory process. Spleen: Normal. Kidneys: Normal size, contour and axis. No suspicious masses seen. Left ureteral stent noted with p igtail in renal pelvis. Previously noted stone in the renal pelvis is no longer present. Stone note d at the lower pole of the left kidney, similar to prior. Two other tiny stones. There is air withi n the collecting system which shows mild to moderate dilatation. This appears more prominent than th e previous exam. Along the left ureter, in the left lower quadrant, there is significant amount of s urrounding fluid as well as high density material and air. The high-density material could be relate d to contrast material, versus hemorrhage. The collection measures roughly 8 x 11 x 12 cm. Findings are suspicious for lower left ureteral injury. Adrenal glands: No masses seen. Aorta: Abdominal portion non-dilated. Lymph nodes: Within normal limits. Soft tissues: Unremarkable. Bladder: Lower of pigtail of the ureteral stent is within the bladder. Small amount of bladder air. No wall thickening. Bowel: No obstruction or bowel wall thickening. Moderate quantity of stool. Appendix normal. Peritoneal cavity: No ascites. No focal collection. No mesenteric inflammatory response. No free ai r. Bones: Advanced degenerative changes in the lumbar spine. Reproductive organs: Prostate mildly enlarged. IMPRESSION: No acute abnormality in the chest. Basilar atelectasis. Left ureteral stent in place. There is [id number] hydronephrosis, new since the previous exam. The stent appears in good position. Fluid collection and high-density material as well as air bubb les around the distal ureter is suspicious for ureteral injury with extravasation. RADIATION DOSE DELIVERED: Total DLP DATA REPOSITORY: All CT scans at this facility are submitted to the National Radiology Data Registry (NRDR) Dose Index Registry (DIR) with the [employer] (A[employer]). RADIATION OPTIMIZATION: All CT scans at this facility use at least one of these dose optimization te chniques: automated exposure control; mA and/or kV adjustment per patient size (includes targeted exa ms where dose is matched to clinical indication); or iterative reconstruction.
--- NOTE | 2024-03-21 06:30 | DI.CT_ITS ---
Exam(s) CT HEAD WO EXAM: CT HEAD WO CLINICAL HISTORY: altered, confused. TECHNIQUE: Imaging Protocol: Axial computed tomography images with coronal and sagittal reformatted images were created and reviewed COMPARISON: CT CT HEAD WO from 04/27/2022 FINDINGS: Ventricles and Extra axial spaces: Normal in size and morphology for the patient's age. Hemorrhage: None. Cerebral parenchyma: No evidence of acute infarct or mass. Minimal white matter changes of small ve ssel disease. Midline shift: None. Brainstem/Cerebellum: Normal. Calvarium: Normal. Visualized Paranasal sinuses:Clear. Mastoids: Clear. Soft Tissues: Unremarkable. ORBITS: Unremarkable. PITUITARY: Not enlarged. IMPRESSION: No acute intracranial process. RADIATION DOSE DELIVERED: Total DLP DATA REPOSITORY: All CT scans at this facility are submitted to the National Radiology Data Registry (NRDR) Dose Index Registry (DIR) with the [employer] (ACR). RADIATION OPTIMIZATION: All CT scans at this facility use at least one of these dose optimization te chniques: automated exposure control; mA and/or kV adjustment per patient size (includes targeted exa ms where dose is matched to clinical indication); or iterative reconstruction.
--- NOTE | 2024-03-21 07:04 | ED.GENADUL_ITS ---
Discharge Plan Discharge Details Chief Complaint: GenMedical Primary Care Provider: Edna Muniz ED Provider: Dallin Glaser Home Meds and New Rx's Prescriptions: No Action furosemide [Lasix] 20 mg tablet 20 mg PO BID Qty: 180 3RF Rx Instructions: 10/11/2022: Per IK: May have a one additional dose of Furosemide if SOB.(Double dose) ketoconazole 2 % cream 1 applic topical DAILY 90 Days Qty: 60 1RF Rx Instructions: Apply to toenails once daily enoxaparin [Lovenox] 40 mg/0.4 mL syringe 40 mg subcut DAILY Qty: 4 0RF Rx Instructions: Stop xarelto two days prior to surgery, change to lovenox; duration at discretion of surgeon polyvinyl alcohol [Artificial Tears (polyvin alc)] 15 ML drops 1 drp Ophthalmic PRN PRN acetaminophen [Tylenol Arthritis Pain] 650 mg tablet extended release 650 mg PO Q12H PRN (Reason: pain) Qty: 60 2RF metoprolol tartrate 25 mg tablet 12.5 mg PO DAILY Qty: 45 3RF Patient Comments: Per pt. always takes this around [id number] 03/15/24- spironolactone 25 mg tablet 25 mg PO DAILY Qty: 90 3RF Rx Instructions: Continue with afternoon lasix Xarelto 10 mg tablet See Rx Instructions .ROUTE .COMPLEX Qty: 90 3RF Dose Instruction: TAKE 1 TABLET BY MOUTH EVERY DAY WITH A MEAL Rx Instructions: TAKE 1 TABLET BY MOUTH EVERY DAY WITH A MEAL HPI General Date/Time Provider Initiated Documentation: 03/21/24 06:30 . HPI Narrative: This is an 83-year-old male with a past medical history of DVTs on Xarelto, chronic kidney disease, chronic hypercalcemia secondary to hyperparathyroidism, chronic recurrent kidney stones, hypertension, abdominal aortic aneurysm, high cholesterol, who presents today for altered mental status via EMS. On 03/18/2024 which was 3 days ago the patient had ureteroscopy, lithotripsy and subsequent left ureteral stent being placed. Patient was scheduled to come back in the next 24 hours to have stent removed. states that postprocedure he had been having some mild groin achiness, and then yesterday he began getting confused, extremely weak, slightly altered. By about 5 AM this morning was notably concerned and called EMS to bring the patient in. Patient denies any focal complaints. He is unsure of the date. He admits to mild groin abdominal achiness. He denies headache or neck pain. No chest pain or shortness of breath. No other complaints at this time. Related Data Home Medications ?Medication ?Instructions ?Recorded ?Confirmed polyvinyl alcohol 1.4 % eye drops 1 drp ophthalmic (eye) PRN PRN 06/11/12 03/21/24 (Artificial Tears (polyvinyl alcohol)) furosemide 20 mg tablet (Lasix) 20 mg PO BID #180 tabs 09/25/23 03/21/24 ketoconazole 2 % topical cream 1 applic topical DAILY 3 months 09/25/23 03/21/24 #60 grams acetaminophen 650 mg 650 mg PO Q12H PRN pain #60 tabs 12/26/23 03/21/24 tablet,extended release (Tylenol Arthritis Pain) metoprolol tartrate 25 mg tablet 12.5 mg (1/2 x 25 mg) PO DAILY #45 01/06/24 03/21/24 tabs spironolactone 25 mg tablet 25 mg PO DAILY edema #90 tabs 01/06/24 03/21/24 rivaroxaban 10 mg tablet (Xarelto) See Rx Instructions .Route 01/09/24 03/21/24 .COMPLEX #90 tabs enoxaparin 40 mg/0.4 mL 40 mg (0.4 mL) subcut DAILY #4 mL 03/02/24 03/21/24 subcutaneous syringe (Lovenox) Previous Rx's ?Medication ?Instructions ?Recorded furosemide 20 mg tablet (Lasix) 20 mg PO BID #180 tabs 09/25/23 ketoconazole 2 % topical cream 1 applic topical DAILY 3 months 09/25/23 #60 grams acetaminophen 650 mg 650 mg PO Q12H PRN pain #60 tabs 12/26/23 tablet,extended release (Tylenol Arthritis Pain) metoprolol tartrate 25 mg tablet 12.5 mg (1/2 x 25 mg) PO DAILY #45 01/06/24 tabs spironolactone 25 mg tablet 25 mg PO DAILY edema #90 tabs 01/06/24 rivaroxaban 10 mg tablet (Xarelto) See Rx Instructions .Route 01/09/24 .COMPLEX #90 tabs enoxaparin 40 mg/0.4 mL 40 mg (0.4 mL) subcut DAILY #4 mL 03/02/24 subcutaneous syringe (Lovenox) Allergies Allergy/AdvReac Type Severity Reaction Status Date / Time amlodipine AdvReac Mild nightmares/restless Verified 03/21/24 06:31 sleep hydrochlorothiazide AdvReac Mild possible Verified 03/21/24 06:31 Erectile dysfunction finasteride AdvReac Hypertensio Verified 03/21/24 06:31 n General Stated Complaint: GenMedical THALIA: 2 Exam Narrative Exam Narrative: 1.Const: Well-nourished, Well-developed, appearing stated age 2.Eyes: PERRL, no conjunctival injection, and symmetrical lids. 3.ENT: Atraumatic external nose and ears. Dry MM. Neck: Symmetric, trachea midline, No thyromegaly. Patient demonstrates good movement of cervical neck. There is no nuchal rigidity, no nuchal tenderness. Patient is able to flex the neck without any difficulty or significant pain. Negative Kernig's and Brudzinski sign. 4.CVS: +S1/S2, Peripheral pulses 2+ and equal in all extremities. Brisk capillary refill in all extremities. 5.RESP: Unlabored respiratory effort. Clear to auscultation bilaterally. No wheezes rales or rhonchi 6.GI: Soft, nondistended, no genital abnormalities. Small amount of blood at urethral meatus. Mild lower abdominal tenderness on palpation. No guarding or rebound no. 7.MSK: Normocephalic/Atraumatic, Extremities w/o deformity or ttp No cyanosis or clubbing, Normal movement of all extremities 8.Skin: Warm, Dry. No rashes or lesions. 9.Neuro: store standards associate II-XII grossly intact. Sensation grossly intact, no focal neurologic deficits. 10.Psych: (AAO) x2. Appropriate mood and affect Course Vital Signs Vital signs: Vital Signs Temperature 36.9 C 03/21/24 06:26 Pulse 102 H 03/21/24 06:26 Respiratory Rate 20 03/21/24 06:26 Blood Pressure 123/81 03/21/24 06:26 Temperature 36.9 C 03/21/24 06:26 Temperature Source Oral 03/21/24 06:26 Pulse 102 H 03/21/24 06:26 Respiratory Rate 20 03/21/24 06:26 Blood Pressure 123/81 03/21/24 06:26 Blood Pressure Position Supine 03/21/24 06:26 Oxygen Delivery Method Room Air 03/21/24 06:26 Oxygen Flow Rate 0 03/21/24 06:26 Medical Decision Making This is an 83-year-old male with a past medical history of DVTs on Xarelto, chronic kidney disease, chronic hypercalcemia secondary to hyperpar athyroidism, chronic recurrent kidney stones, hypertension, abdominal aortic aneurysm, high cholesterol, who presents today for altered mental status via EMS. On 03/18/2024 which was 3 days ago the patient had ureteroscopy, lithotripsy and subsequent left ureteral stent being placed. Patient was scheduled to come back in the next 24 hours to have stent removed. states that postprocedure he had been having some mild groin achiness, and then yesterday he began getting confused, extremely weak, slightly altered. By about 5 AM this morning was notably concerned and called EMS to bring the patient in. Patient denies any focal complaints. He is unsure of the date. He admits to mild groin abdominal achiness. He denies headache or neck pain. No chest pain or shortness of breath. No other complaints at this time. Exam demonstrates a supple neck, no nuchal rigidity or stiffness to suggest meningitis. Patient is tachycardic, feels warm to the touch but is afebrile by objective measurements. Mild lower abdominal pain. Unremarkable genital exam aside for some mild blood at the urethral meatus. Patient is ANO x 2, and is unaware of the date. Concern for encephalopathy secondary to infection, primarily concern for urinary infection. Procedure elicitation complication is on the differential with the lower abdominal pain but less likely. No symptoms to suggest meningitis. Lungs demonstrate relatively clear lung sounds, but pneumonia is certainly on the differential as opposed anesthesia complication. We will evaluate for these concerning etiologies, monitor closely and reassess. Will start broad-spectrum antibiotics vancomycin and Zosyn out of concern for potential infection. Patient will be signed out to my colleague Dr. Belcher for follow-up on labs and imaging. Quality:SDOH Health Related Social Needs: No Data to Display PFSH All Active Problems (Updated 03/18/24 @ 00:03 by KERMIT BARRERA) Edema of both lower extremities (Acute) Well-managed, with exercise/activity; b/l general .. trial compression and lasix Elevated parathyroid hormone (Acute) Osteoarthritis of right knee (Acute) Steroid injection: 03/04/24; 05/19/2023 Hypercalcemia (Acute) CKD (chronic kidney disease) stage 3, GFR 30-59 ml/min (Acute) Stage 3, 2022, with LALA (GFR <30!) 2' over-diures.. Hx stage 2-3 (2021) Edema of foot (Acute) Knee pain, bilateral (Acute) ? goop injection Onychomycosis (Acute) Lumbar spondylosis (Acute) Lumbar back pain (Acute) Lumbar adjacent segment disease with spondylolisthesis (Acute) long-term (current) use of anticoagulants (Acute) Osteoarthritis of left knee (Acute) Steroid injection: 03/04/24; 05/19/2023; 12/07/2020 HTN (hypertension) (Chronic) Hyperlipidemia (Chronic 10/24/04) RISK 12% 11/2005; LDL goal 100 Need labs, [ ] Fall 201807/01/18 Medical History (Updated 03/18/24 @ 00:03 by KERMIT BARRERA) Leg edema Resolves with activity, qAM, 04/2022.. (Worsening, re-start furosemide, 10/2020) Renal calculus Hematuria: CT (01/09/23) vs. CT (04/27/2022):.. largest calculus in the left kidney has now migrated to the upper left ureter/UPJ level (prob responsible for hematuria)..no obvious dilatation of the left collecting system above this level..another calculus again noted in the left left kidney lower pole calyx (no changed position)..previously present 3 mm calculus in the bladder no longer seen and has most probably passed. 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 07/2021 Left knee pain Acute on chronic. Not a surgical candidate. Cane helping - may need training.. BPH w/o urinary obs/LUTS (02/15/11) nocturiaX1-2; INCR 3X 09/2012 Acute on chronic renal failure Acute exacerbation of congestive heart failure Hosp; resolved .. but with too much fluid restriction post hosp! Bakers cyst Rt, 4cm.. incidental finding on US DVT (deep venous thrombosis) New DVT, 02/2021. Xarelto started. Resolved, Cinda D/C'd 07/2020 by Surg. C. 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 denies this stated that this was due to an interaction a year ago where having the masks on and he his hard of hearing they stated he had dementia which his and current PCP stated he does not. 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 Taylor started him on HCTZ 2005. High BP readings @ ophtho, urol . turns out to be 2' finesteride, Dr. Smallwood d/c'd .. will follow up in July 2018. 125/85 today, 06/2018, ik. Surgical History Hx of cataract removal with insertion of prosthetic lens 12/11/20 [place], [facility] Posterior subcapsular age-related cataract, right eye Nuclear sclerotic cataract of right eye S/P cholecystectomy (01/24/20) S/P ERCP Arthroscopy (02/10/84) in CT, Left knee Family History Son Age: 60 No problems noted. 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
[2024-03-21 07:19] LABS: BE (Venous) 1 mmol/L (-2-3); HCO3 (Venous) 26 mmol/L (23-28); Lactate 1.5 mmol/L (<or=2.0); O2 Sat (Venous) 74 %; TCO2 (Venous) 23 mmol/L (24-29); pCO2 (Venous) 44 mmHg (41-51); pH (Venous) 7.38 (7.31-7.41); pO2 (Venous) 39 mmHg
[2024-03-21 07:23] LABS: HCT 44.1 % (40.0-50.0); HGB 14.2 g/dL (13.5-17.5); MCH 28.2 pg (27.0-33.0); MCHC 32.2 % (32.0-36.0); MCV 88 fL (80-95); MPV 10.1 fL (8.0-11.0); RBC 5.03 10^6/uL (4.36-5.78); RDW 15.7 % (11.8-14.1); RDW-SD 49.7 fL; WBC 15.52 10^3/uL (4.4-10.8)
[2024-03-21 07:33] LABS: COVID-19 PCR Negative (Negative); Influenza A PCR Negative (Negative); Influenza B PCR Negative (Negative); RSV PCR Negative (Negative)
[2024-03-21 07:36] LABS: INR 1.1 (0.9-1.1); PTT Activated 27.2 sec (20.6-30.2); Prothrombin Time 11.4 sec (9.1-11.1)
[2024-03-21 07:39] LABS: Source Nasopharynx
--- NOTE | 2024-03-21 07:43 | W.EDPROG ---
Date of service: 03/21/24 Time of Service: 07:43 Medical Decision Making In brief, this is an 83-year-old male patient with a past medical history significant for CKD, hypertension, AAA, hyperlipidemia, and anticoagulant use, and a recent history of renal stenting presenting for altered mental status. At the time that I took over his care, laboratory studies were starting to come back and I personally reviewed them. His INR is 1.1, VBG without acidosis or evidence of hypercarbia, lactate 1.5. Fluvid negative, remainder pending. Given the concern for infection due to his recent procedure, the decision was made to start the patient on broad-spectrum antibiotics to include vancomycin and Zosyn, and he did receive a small fluid bolus given his history of heart failure and his relative hemodynamic stability. A CT of his head, chest abdomen and pelvis was pending. The remainder of the laboratory studies returned, with a leukocytosis to 15 appreciated, no anemia, very mild thrombocytopenia to 127. Chemistry panel is notable for an increase in the patient's BUN and creatinine from baseline, 54 and 3.0 respectively, with a GFR of 19. The patient has a mild elevation in his bilirubin to 2.3, no other evidence of liver dysfunction. Ammonia is low, troponin was negative, and a BNP was low. Procalcitonin 0.2. Ethanol negative. CT head was normal, CT chest abdomen pelvis most concerning for ureteral injury with a surrounding hematoma and evidence of a small amount of free air surrounding the ureter. Discussed this finding with radiology. [facility] urology unfortunately not available, so I [place] [facility] [place] ED transfer for urology evaluation and likely nephrostomy tube placement with IR. Dr. Gregg accepting physician, patient to be transported by ambulance. Patient remained hemodynamically improved while under my care, was kept n.p.o., last dose of Xarelto suppertime yesterday. Left our facility with EMS without incident. Fabi Belcher MD Medical Records Medical records reviewed: Yes I reviewed the patient's medical records. Lab Data Lab results reviewed: Yes I reviewed the patient's lab results. Quality:SDMI Health Related Social Needs: No Data to Display Discharge Plan Disposition Patient Disposition: Transfer-Acute Inpatient Care Specific Acute In Facility: [facility] Condition: Stable Discharge Details Chief Complaint: GenMedical Clinical Impression: Ureteral stent present, Hyperlipidemia, HTN (hypertension), prison (current) use of anticoagulants, CKD (chronic kidney disease) stage 3, GFR 30-59 ml/min, Hypercalcemia, Postoperative hematoma involving genitourinary system following genitourinary procedure, LALA (acute kidney injury) Primary Care Provider: Edna Muniz ED Provider: Fabi Belcher Home Meds and New Rx's Prescriptions: No Action furosemide [Lasix] 20 mg tablet 20 mg PO BID Qty: 180 3RF Rx Instructions: 10/11/2022: Per IK: May have a one additional dose of Furosemide if SOB.(Double dose) ketoconazole 2 % cream 1 applic topical DAILY 90 Days Qty: 60 1RF Rx Instructions: Apply to toenails once daily enoxaparin [Lovenox] 40 mg/0.4 mL syringe 40 mg subcut DAILY Qty: 4 0RF Rx Instructions: Stop xarelto two days prior to surgery, change to lovenox; duration at discretion of surgeon polyvinyl alcohol [Artificial Tears (polyvin alc)] 15 ML drops 1 drp Ophthalmic PRN PRN acetaminophen [Tylenol Arthritis Pain] 650 mg tablet extended release 650 mg PO Q12H PRN (Reason: pain) Qty: 60 2RF metoprolol tartrate 25 mg tablet 12.5 mg PO DAILY Qty: 45 3RF Patient Comments: Per pt. always takes this around [id number] 03/15/24- spironolactone 25 mg tablet 25 mg PO DAILY Qty: 90 3RF Rx Instructions: Continue with afternoon lasix Xarelto 10 mg tablet See Rx Instructions .ROUTE .COMPLEX Qty: 90 3RF Dose Instruction: TAKE 1 TABLET BY MOUTH EVERY DAY WITH A MEAL Rx Instructions: TAKE 1 TABLET BY MOUTH EVERY DAY WITH A MEAL
[2024-03-21 07:47] LABS: ALT 10 U/L (16-63); AST 12 U/L (15-37); Albumin 3.1 g/dL (3.4-5.0); Alkaline Phosphatase 77 U/L (46-116); Anion Gap 10.8 mmol/L (3-11); BUN 54 mg/dL (7-18); Bilirubin, Total 2.39 mg/dL (0.2-1.0); CO2 26.2 mmol/L (21.0-32.0); Calcium 10.5 mg/dL (8.5-10.1); Chloride 104 mmol/L (98-107); Estimated GFR 19.86 (mL/min/1.73m2); Glucose 127 mg/dL (74-106); Potassium 4.4 mmol/L (3.5-5.1); Sodium 141 mmol/L (136-145); TSH (W/Ref FT4) 0.81 uIU/mL (0.36-3.74); Total Protein 6.9 g/dL (6.4-8.2); Troponin I 10 ng/L (<or=76)
[2024-03-21 07:48] LABS: ETHANOL BLOOD < 3.0 mg/dL (<10)
[2024-03-21 07:49] LABS: Platelet Count 127 10^3/uL (130-400)
[2024-03-21 07:50] LABS: Absolute Eosinophil Count 2.02 10^3/uL (0.0-0.7); Absolute Lymphocyte Count 1.71 10^3/uL (1.2-3.4); Absolute Monocyte Count 2.02 10^3/uL (0.1-0.8); Absolute Neutrophil Count 9.78 10^3/uL (1.2-6.7); Atypical Lymphocytes % 2 %; Bands % 0 %; Diff Comment Manual Differential; RBC Morphology Normal
[2024-03-21] MEDS: PIPERACILLIN/TAZO 3.375 GM in Normal Saline 50 ML IVPB (07:57)
[2024-03-21] MEDS: Lactated Ringers 1,000 ML 1000 ML IV (07:57)
[2024-03-21 08:02] LABS: Lab Add On Test DONE
[2024-03-21 08:06] LABS: Ammonia < 10 umol/L (11-32)
[2024-03-21 08:06] LABS: Procalcitonin 0.27 ng/mL
--- NOTE | 2024-03-21 08:10 | DI.VRAD_ITS ---
PROCEDURE INFORMATION: Exam: CT Head Without Contrast Exam date and time: 03/21/2024 7:26 AM Age: 83 years old Clinical indication: Other: Altered, confused TECHNIQUE: Imaging protocol: Computed tomography of the head without contrast. COMPARISON: CT HEAD WO 04/27/2022 1:00 PM FINDINGS: Brain: Patchy lucencies in the white matter are nonspecific but most suggestive of chronic microvascular ischemic disease. These are fairly similar. There is no evidence for large acute cortical infarct. No intracranial hemorrhage or extraaxial collection is identified. There is no significant intracranial mass effect. Cerebral ventricles: The ventricles and sulci are stable in configuration. Paranasal sinuses: Visualized sinuses are unremarkable. No fluid levels. Mastoid air cells: Visualized mastoid air cells are well aerated. Bones: Unremarkable. No acute fracture. Soft tissues: Unremarkable. IMPRESSION: No CT evidence for acute intracranial abnormality or significant change since 04/27/2022. COMMENTS: Early cerebral infarct may be CT occult in the first 12 hours. Dictated and Authenticated by: Camilo Covarrubias MD. Orderin Alfredito Zamarripa MD
--- NOTE | 2024-03-21 08:17 | DI.VRAD_ITS ---
Addendum created by Cherelle Luna MD on 03/21/2024 8:35:13 AM EST: ADDENDUM: THIS REPORT CONTAINS FINDINGS THAT MAY BE CRITICAL TO PATIENT CARE. The findings were verbally communicated by me to Dr Belcher via telephone conference at 8:14 AM EST on 03/21/2024. The findings were acknowledged and understood. Initial report created on 03/21/2024 8:17:04 AM EST: PROCEDURE INFORMATION: Exam: CT Chest Without Contrast; Diagnostic Exam date and time: 03/21/2024 7:27 AM Age: 83 years old Clinical indication: Other: Recent urologic surgery, confused and altered TECHNIQUE: Imaging protocol: Diagnostic computed tomography of the chest without contrast. 3D rendering (Not supervised by radiologist): MIP and/or 3D reconstructed images were created by the technologist. COMPARISON: CR XR CHEST 2V PA LATERAL 04/27/2022 1:08 PM FINDINGS: Limitations: Beam hardening artifact related to positioning of the patient's arms. Moderate respiratory motion artifact. Low lung volumes. Lungs: Opcn-gg-fwntjobn subsegmental atelectasis in the lower lobes. Mild ground-glass attenuation of the lungs. No focal infiltrates. No suspicious pulmonary nodules. Pleural spaces: Unremarkable. No pneumothorax. No pleural effusion. Heart: Mild cardiomegaly. Coronary arteries: Mild atherosclerotic calcifications of the coronary arteries. Lymph nodes: Unremarkable. No enlarged lymph nodes. Vasculature: Unremarkable. No aortic aneurysm. Bones/joints: Demineralization of the osseous structures somewhat limits evaluation. No acute or suspicious osseous abnormalities. Moderate degenerative changes of the lower thoracic spine. Soft tissues: Moderate bilateral gynecomastia. IMPRESSION: 1. No acute findings in the chest. 2. Mild ground-glass attenuation of the lungs. This may be attributable to suboptimal inspiration or mild congestion. 3. Please refer to separately dictated abdomen pelvis CT report for description of findings in this region. PROCEDURE INFORMATION: Exam: CT Abdomen And Pelvis Without Contrast Exam date and time: 03/21/2024 7:27 AM Age: 83 years old Clinical indication: Other: Recent urologic surgery, confused and altered TECHNIQUE: Imaging protocol: Computed tomography of the abdomen and pelvis without contrast. 3D rendering (Not supervised by radiologist): MIP and/or 3D reconstructed images were created by the technologist. COMPARISON: CT ABDOMEN PELVIS WO 02/16/2024 12:57 PM FINDINGS: Liver: Left lateral segment 3 0.7 cm (10 HU) benign-appearing hepatic cyst, requiring no further evaluation. Otherwise unremarkable liver. Gallbladder and biliary ducts: The gallbladder is surgically absent. No biliary dilatation. Pancreas: Normal. No ductal dilation. Spleen: Normal. No splenomegaly. Adrenal glands: Normal. No mass. Kidneys and ureters: A 1.3 x 0.8 cm stone which was previously seen in the left ureteropelvic junction region is no longer evident. Nonobstructive left renal calculi and/or gravel-like material, measuring as large as 1 x 0.3 cm in the left lower pole. In spite of the presence of a new left ureteral stent which projects in satisfactory position there is new [id number] left hydronephrosis. There is a small amount of new air in the left renal collecting system. Mild bilateral renal cortical thinning. Otherwise unremarkable. Stomach and bowel: Unremarkable. No obstruction. No mucosal thickening. Appendix: Normal appendix. Intraperitoneal space: Unremarkable. No free air. No significant fluid collection. Retroperitoneal space: In the left retroperitoneum, surrounding the left ureter, there is a new heterogeneous hyperattenuating infiltrating hematoma, which contains clusters of extraluminal air bubbles, with conglomerate size of approximately 7.9 x 10.8 x 12.2 cm (image 246/series 2, image 41/series 5). Vasculature: Unremarkable. No abdominal aortic aneurysm. Lymph nodes: Unremarkable. No enlarged lymph nodes. Urinary bladder: Unremarkable as visualized. Reproductive: Mildly enlarged prostate. Bones/joints: No acute or suspicious osseous abnormalities. Severe multilevel degenerative disc disease of the lumbar spine, greatest at L3-L4. Grade I degenerative anterior spondylolisthesis of L4 on L5. Soft tissues: Unremarkable. IMPRESSION: 1. Findings worrisome for left ureteral injury. New extraperitoneal hematoma and air bubbles surround the left ureter. 2. In spite of the presence of a new left ureteral stent which projects in satisfactory position there is new [id number]-[id number] left hydronephrosis. Stent malfunction can not be excluded. Recommend clinical assessment and follow-up. 3. Left renal calculi. 4. Mildly enlarged prostate. 5. Please refer to separately dictated chest CT report for description of findings in the chest. Dictated and Authenticated by: Cherelle Luna MD. Orderin Alfredito Zamarripa MD
[2024-03-21 08:21] LABS: NT-proBNP 315 pg/mL (<300)
[2024-03-21] MEDS: VANCOMYCIN 2,000 MG in Normal Saline 500 ML 333.3333 MG IVPB (08:26)
[2024-03-21 08:39] LABS: Troponin I 8 ng/L (<or=76)
== END 2024-03-21 11:58 | disposition short-term general hospital (02) ==
PROVIDERS: Student in an Organized Health Care Education/Training Program; Emergency Provider Emergency Medicine; PCP Nurse Practitioner Family
DX: N13.2 Hydronephrosis with renal and ureteral calculous obstruction; I12.9 Hypertensive chronic kidney disease with stage 1 through stage 4 chronic kidney disease, or unspecified chronic kidney disease; N18.30 Chronic kidney disease, stage 3 unspecified; E83.51 Hypocalcemia; E20.811 Secondary hypoparathyroidism in diseases classified elsewhere; Z96.0 Presence of urogenital implants; Z79.01 Long term (current) use of anticoagulants; Z87.891 Personal history of nicotine dependence; Z98.890 Other specified postprocedural states
CPT/HCPCS: 00123; 36415; 71250; 80053; 82805; 84145; 87040; 87637; 93005; 96365; 96366; 96367; 99285; 70450; 74176; 80320; 82140; 83605; 83880; 84443; 84484; 85025; 85610; 85730; 93010; J2543; J3370

== ENCOUNTER 2024-04-29 19:37 | Outpatient (REF) | payer MEDICARE, SELFPAY ==
[2024-04-29 19:13] LABS: ALT 35 U/L (16-63); AST 19 U/L (15-37); Albumin 2.2 g/dL (3.4-5.0); Alkaline Phosphatase 68 U/L (46-116); Anion Gap 8.7 mmol/L (3-11); BUN 22 mg/dL (7-18); Bilirubin, Total 0.7 mg/dL (0.2-1.0); CO2 24.3 mmol/L (21.0-32.0); CREATININE 1.1 mg/dL (0.70-1.30); Calcium 7.7 mg/dL (8.5-10.1); Chloride 106 mmol/L (98-107); Estimated GFR 66.19 (mL/min/1.73m2); Glucose 170 mg/dL (74-106); Potassium 3.7 mmol/L (3.5-5.1); Sodium 139 mmol/L (136-145); Total Protein 5.1 g/dL (6.4-8.2)
== END 2024-04-29 19:38 | disposition home or self-care (01) ==
LOC: LBN 19:37
PROVIDERS: PCP Nurse Practitioner Family; Visit Provider Nurse Practitioner Gerontology
DX: E83.52 Hypercalcemia (principal)
CPT/HCPCS: 80053

== ENCOUNTER 2024-05-03 19:51 | Outpatient (REF) | payer MEDICARE, SELFPAY ==
[2024-05-03 19:47] LABS: Abs Immature Grans 0.11 10^3/uL (0.0-0.06); Absolute Basophil Count 0.05 10^3/uL (0.0-0.2); Absolute Eosinophil Count 0.07 10^3/uL (0.0-0.7); Absolute Lymphocyte Count 1.18 10^3/uL (1.2-3.4); Absolute Monocyte Count 0.77 10^3/uL (0.1-0.8); Absolute Neutrophil Count 4.39 10^3/uL (1.2-6.7); Basophils % 0.8 %; Eosinophils % 1.1 %; HCT 36.6 % (40.0-50.0); HGB 11.4 g/dL (13.5-17.5); Immature Grans % 1.7 %; MCHC 31.1 % (32.0-36.0); MCV 87 fL (80-95); MPV 9.7 fL (8.0-11.0); Monocytes % 11.7 %; Neutrophils % 66.7 %; Platelet Count 225 10^3/uL (130-400); RBC 4.22 10^6/uL (4.36-5.78); RDW 17.2 % (11.8-14.1); RDW-SD 53.9 fL; WBC 6.57 10^3/uL (4.4-10.8)
[2024-05-03 19:52] LABS: Iron 27 ug/dL (65-175); Total Iron Binding Capacity 132 ug/dL (250-450); Transferrin Sat 20 % (20-55)
[2024-05-03 20:12] LABS: Hemoglobin A1C 6.6 % (<5.7)
[2024-05-03 20:37] LABS: ALT 125 U/L (16-63); AST 108 U/L (15-37); Albumin 2.2 g/dL (3.4-5.0); Alkaline Phosphatase 93 U/L (46-116); Anion Gap 7.8 mmol/L (3-11); BUN 19 mg/dL (7-18); CO2 28.2 mmol/L (21.0-32.0); CREATININE 0.9 mg/dL (0.70-1.30); Calcium 8.5 mg/dL (8.5-10.1); Chloride 106 mmol/L (98-107); Estimated GFR 84.22 (mL/min/1.73m2); Ferritin 1196 ng/mL (26-388); Folate 4.7 ng/mL (8.6-20.0); Glucose 123 mg/dL (74-106); Magnesium 2.3 mg/dL; Potassium 4.5 mmol/L (3.5-5.1); Sodium 142 mmol/L (136-145); TSH (W/Ref FT4) 0.53 uIU/mL (0.36-3.74); Total Protein 5.6 g/dL (6.4-8.2); Vitamin B12 471 pg/mL (193-986); Vitamin D 25 Total 15 ng/mL (30-100)
[2024-05-03 20:56] LABS: NT-proBNP 626 pg/mL (<300)
[2024-05-05 09:36] LABS: Amylase 50 U/L (25-115); Lipase 70 U/L (<78)
== END 2024-05-03 19:52 | disposition home or self-care (01) ==
LOC: LBN 19:51
PROVIDERS: PCP Nurse Practitioner Family; Visit Provider Nurse Practitioner Gerontology
DX: I50.22 Chronic systolic (congestive) heart failure (principal); R73.03 Prediabetes; E55.9 Vitamin D deficiency, unspecified; E87.8 Other disorders of electrolyte and fluid balance, not elsewhere classified; K85.90 Acute pancreatitis without necrosis or infection, unspecified; R74.01 Elevation of levels of liver transaminase levels
CPT/HCPCS: 80053; 82306; 83690; 82150; 82607; 82728; 82746; 83036; 83540; 83550; 83735; 83880; 84443; 85025

== ENCOUNTER 2024-05-06 18:45 | Outpatient (REF) | payer MEDICARE, SELFPAY ==
[2024-05-06 20:03] LABS: Abs Immature Grans 0.09 10^3/uL (0.0-0.06); Absolute Basophil Count 0.05 10^3/uL (0.0-0.2); Absolute Eosinophil Count 0.13 10^3/uL (0.0-0.7); Absolute Lymphocyte Count 1.11 10^3/uL (1.2-3.4); Absolute Monocyte Count 0.53 10^3/uL (0.1-0.8); Absolute Neutrophil Count 3.28 10^3/uL (1.2-6.7); Eosinophils % 2.5 %; HGB 12.4 g/dL (13.5-17.5); Immature Grans % 1.7 %; Lymphocytes % 21.4 %; MCH 26.8 pg (27.0-33.0); MCV 86 fL (80-95); MPV 9.4 fL (8.0-11.0); Monocytes % 10.2 %; Neutrophils % 63.2 %; Platelet Count 215 10^3/uL (130-400); RBC 4.63 10^6/uL (4.36-5.78); RDW 16.7 % (11.8-14.1); RDW-SD 51.8 fL; WBC 5.19 10^3/uL (4.4-10.8)
[2024-05-06 20:20] LABS: Mono Screening Negative (Negative)
[2024-05-06 20:30] LABS: ALT 121 U/L (16-63); AST 74 U/L (15-37); Albumin 2.5 g/dL (3.4-5.0); Alkaline Phosphatase 110 U/L (46-116); Anion Gap 6.8 mmol/L (3-11); BUN 16 mg/dL (7-18); Bilirubin, Total 0.6 mg/dL (0.2-1.0); CO2 29.2 mmol/L (21.0-32.0); CREATININE 1.1 mg/dL (0.70-1.30); Calcium 9.6 mg/dL (8.5-10.1); Chloride 106 mmol/L (98-107); Estimated GFR 66.19 (mL/min/1.73m2); Glucose 147 mg/dL (74-106); Potassium 4.1 mmol/L (3.5-5.1); Sodium 142 mmol/L (136-145); Total Protein 6.2 g/dL (6.4-8.2)
[2024-05-10 11:29] LABS: Hepatitis C Ab w Rflx HCV PCR Negative (Negative)
== END 2024-05-06 18:46 | disposition home or self-care (01) ==
LOC: LBN 18:45
PROVIDERS: PCP Nurse Practitioner Family; Visit Provider Nurse Practitioner Gerontology
DX: E83.52 Hypercalcemia (principal); N18.31 Chronic kidney disease, stage 3a; R74.01 Elevation of levels of liver transaminase levels
CPT/HCPCS: 80053; 86803; 85025; 86308

== ENCOUNTER 2024-05-07 08:58 | Inpatient (IN) | payer MEDICARE, SELFPAY ==
[2024-05-07] VITALS (20 sets, daily range): BP systolic 115–171; BP diastolic 53–93; PULSE 93–124; RESP 5–28; TEMP 36.4; O2SAT 85–99
--- NOTE | 2024-05-07 08:45 | RT.EKG_ITS ---
APPROVED REPORT Exam: Resting ECG Reason for Exam: hypoxia Patient Location: E HR:96 bpm ECG Measurements Heart Rate 96 AXIS CO 226 P 13 QRSd 95 QRS -21 QT 321 T 12 QTc 406 Conclusion Sinus rhythm...normal P axis, V-rate 60- 99 Prolonged CO interval...CO >215, V-rate 91-120 Probable left atrial enlargement...P >50mS, <-0.10mV V1
[2024-05-07] MEDS: Albuterol/Ipratropium 3 ML UPD VIAL UPD (09:15)
[2024-05-07] MEDS: methylPREDNISolone SUCC 125 MG VIAL IVP (09:25)
[2024-05-07 09:51] LABS: Bilirubin Negative (Negative); Blood Large (Negative); Clarity Cloudy (Clear); Glucose Negative (Negative); Ketones Negative (Negative); Leukocyte Esterase Small (Negative); Nitrite Negative (Negative); Specific Gravity 1.025 (1.005-1.025); Urobilinogen 0.2 mg/dL (Up to 0.2)
[2024-05-07 10:02] LABS: Epithelial Cells Negative HPF (Negative); Other Cells Moderate Yeast (Negative); RBC >50 HPF (0-2); WBC >50 HPF (0-5)
[2024-05-07 10:03] LABS: Bacteria Few HPF (Negative); C & S Indicated? Yes; Casts Negative LPF (Negative); Crystals Negative HPF (Negative); Mucus Negative (Negative)
[2024-05-07] MEDS: Albuterol 2.5 MG/3 ML INH SOLN VIAL UPD (10:12)
[2024-05-07 10:24] LABS: BE (Venous) 7 mmol/L (-2-3); HCO3 (Venous) 33 mmol/L (23-28); O2 Sat (Venous) 62 %; TCO2 (Venous) 30 mmol/L (24-29); pCO2 (Venous) 56 mmHg (41-51); pH (Venous) 7.37 (7.31-7.41); pO2 (Venous) 34 mmHg
[2024-05-07 10:25] LABS: Abs Immature Grans 0.06 10^3/uL (0.0-0.06); Absolute Basophil Count 0.03 10^3/uL (0.0-0.2); Absolute Lymphocyte Count 1.92 10^3/uL (1.2-3.4); Absolute Monocyte Count 0.67 10^3/uL (0.1-0.8); Absolute Neutrophil Count 3.29 10^3/uL (1.2-6.7); Basophils % 0.5 %; Eosinophils % 1.6 %; HCT 39.2 % (40.0-50.0); HGB 12.2 g/dL (13.5-17.5); Lymphocytes % 31.6 %; MCH 27.1 pg (27.0-33.0); MCHC 31.1 % (32.0-36.0); MCV 87 fL (80-95); MPV 8.5 fL (8.0-11.0); Neutrophils % 54.3 %; Platelet Count 188 10^3/uL (130-400); RBC 4.51 10^6/uL (4.36-5.78); RDW 16.3 % (11.8-14.1); RDW-SD 51.5 fL; WBC 6.07 10^3/uL (4.4-10.8)
[2024-05-07 10:27] LABS: Lactate 1.4 mmol/L (<or=2.0)
[2024-05-07 10:38] LABS: COVID-19 PCR Negative (Negative); Influenza A PCR Negative (Negative); Influenza B PCR Negative (Negative); RSV PCR Negative (Negative)
[2024-05-07 10:39] LABS: Source Nasopharynx
[2024-05-07 10:50] LABS: ALT 89 U/L (16-63); AST 41 U/L (15-37); Albumin 2.4 g/dL (3.4-5.0); Alkaline Phosphatase 99 U/L (46-116); Anion Gap 4.4 mmol/L (3-11); BUN 16 mg/dL (7-18); Bilirubin, Total 0.9 mg/dL (0.2-1.0); CO2 32.6 mmol/L (21.0-32.0); CREATININE 1.1 mg/dL (0.70-1.30); Calcium 9.8 mg/dL (8.5-10.1); Chloride 103 mmol/L (98-107); Estimated GFR 66.19 (mL/min/1.73m2); Glucose 126 mg/dL (74-106); NT-proBNP 423 pg/mL (<300); Potassium 4.1 mmol/L (3.5-5.1); Sodium 140 mmol/L (136-145); Total Protein 6.8 g/dL (6.4-8.2); Troponin I 9 ng/L (<or=76)
[2024-05-07] MEDS: Normal Saline - Diluent 50 ML VIAL IJ (11:06)
[2024-05-07] MEDS: Omnipaque 350 MG/ML 500 ML BTL-Imaging package 100 ML IJ (11:07)
--- NOTE | 2024-05-07 11:30 | DI.CT_ITS ---
Exam(s) CT CHEST PE ABD PELVIS W EXAM: CT CHEST PE ABD PELVIS W CLINICAL HISTORY: sob, dyspnea, pe hx, hematuria/ left nephrostomy. TECHNIQUE: Imaging Protocol: Axial CT angiography was performed with multi-slice acquisition and m ulti-planar and/or 3D reconstructions. CONTRAST MATERIAL: Intravenous: Omnipaque 350 Contrast volume:100 ml Oral: None COMPARISON: CT CT CHEST/ABD/PEL WO from 03/21/2024 FINDINGS: CHEST: PULMONARY ARTERIES: There are no intra-arterial filling defects to suggest the presence of acute pulm onary emboli. LUNGS: There is mild right infrahilar infiltrate. No pleural effusions.. There is no evidence of pu lmonary infarction. MEDIASTINUM: There is no hilar nor mediastinal adenopathy. Visualized thyroid unremarkable. CARDIAC: Heart size is normal. There is no pericardial effusion. There is no significant shift of t he interventricular septum.Caliber of the thoracic aorta is within normal limits. No evidence of aor tic dissection. OSSEOUS: No significant osseous lesions.. ABDOMEN: There is no ascites. LIVER: There is a cyst in left hepatic lobe again noted which measures 3.4 x 2.5 cm. No other signif icant focal liver findings. No dilated intrahepatic ducts. GALLBLADDER/BILIARY: The gallbladder is surgically absent CBD is not dilated. PANCREAS: No evidence of pancreatic mass nor dilatation of the pancreatic duct. SPLEEN: Spleen is not enlarged. There are no intrasplenic lesions. Splenic and portal veins are rosales nt. ADRENALS: There are no significant adrenal masses. KIDNEYS:Right kidney unremarkable. On the left side there is a percutaneous nephrostomies/ureterosto my drainage catheter in place. The proximal pigtail is in the left kidney 1 of the left kidney infun dibulum I. from there the tube descends down the decompressed left ureter and into the urinary bladde r in good position. The left collecting system is decompressed at and below the kidney level. There is some streaking and a small collection just anterior to the left ureter in the pelvis although the appearance at this level has significantly improved when compared to 03/21/2024. This remaining col lection anterior to the left ureter within the pelvis measures approximately 1.3 by 0.9 cm. ABDOMINAL AORTA: Abdominal aorta is not enlarged. LYMPH NODES: There is no retroperitoneal or para-aortic adenopathy. ABDOMINAL WALL/GI: No evidence of significant anterior abdominal wall hernia. The nephrostomy tube i s not kinked and there is no subcutaneous collection around the nephrostomy tube. PELVIS: LYMPH NODES: There is no intrapelvic nor inguinal adenopathy. GI: No evidence of appendicitis.No evidence of sigmoid diverticulitis. URINARY BLADDER: Contains the lower pigtail of the stent and the bladder is collapsed around this. REPRODUCTIVE: Prostate size normal. Seminal vesicles unremarkable. OSSEOUS: No significant osseous lesions. No fractures. Multilevel chronic degenerative disc disease. IMPRESSION: 1. There is satisfactory position of the left nephroureterostomy tube and the left collecting system is decompressed. In addition, there has been significant improvement in the collection adjacent to t he left ureter seen within the left side of the pelvis on the CT scan of 03/21/2024. There is presen tly a small remaining collection at this level measuring 13 x 9 mm. 2. Opposite-right kidney appears unremarkable. 3. No evidence of obvious pulmonary emboli nor pulmonary infarction. No pleural effusions. 4. Slightly increased markings in the right lower lobe/mild infiltrate. No pleural effusion. RADIATION DOSE DELIVERED: 2,162.35mGy.cm Total DLP DATA REPOSITORY: All CT scans at this facility are submitted to the National Radiology Data Registry (NRDR) Dose Index Registry (DIR) with the [employer] ([employer]). RADIATION OPTIMIZATION: All CT scans at this facility use at least one of these dose optimization te chniques: automated exposure control; mA and/or kV adjustment per patient size (includes targeted exa ms where dose is matched to clinical indication); or iterative reconstruction.
[2024-05-07] MEDS: cefTRIAXone 2 GM/50 ML BAG IVPB (11:35)
[2024-05-07] MEDS: Normal Saline 500 ML IV (12:13)
[2024-05-07 12:19] LABS: Troponin I 8 ng/L (<or=76)
[2024-05-07 12:50] LABS: Troponin I 7 ng/L (<or=76)
[2024-05-07] MEDS: DOXYCYCLINE 100 MG in Normal Saline 100 ML IVPB (13:48)
--- NOTE | 2024-05-07 14:10 | W.PM.HP.N ---
Date of service: 05/07/24 Time of Service: 14:10 Assessment and Plan Assessment and plan (1) Sepsis: Status: Acute Assessment and plan: Sepsis criteria met with tachypnea RR 28 , tachyccardia HR 107 and pulmonary source of infection as below (2) Pneumonia: Status: Acute Assessment and plan: Blood C&S pending- 500 ml of IVF in the ED, Hx of CHF with LVEF 45-50% will hold of further bolus - On doxycycline and Ceftriaxone (3) Acute hypoxic respiratory failure: Status: Acute Assessment and plan: New O2 requirement in the setting of pneumonia , patient also has a history of CHF with LVEF 45-50% and is on oral lasix and aldactone VBG PCO2 56 - will repeat a STAT VBG as patient appears lethargic Consider BIPAP/CPAP PRN as per VBG result and worsening hypercapnia Consider adding RT consult for NIV management pending VBG results Solumedrol 125 mg IVP in the ED (4) Pulmonary emboli: Status: Chronic Assessment and plan: 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 Boyd History of Present Illness History of Present Illness Chief Complaint: SOB, hematuria Narrative: This 83 yo male with a past medical history of CKD, hypertension, AAA, hyperlipidemia, and PE on anticoagulant , and a recent history of renal stenting, nephrostomy, recurrent stones and urosepsis presented to the ED at [facility] for hematuria seen in nephrostomy tube and increased work of breathing over 2 days. The patient was newly oxygen dependent in the ED to maintain sat 92-93%. Workup in the ED was unremarkable except hypercapnia with PCO2 at [address] findings of slightly increased markings in the right lower lobe/mild infiltrate.The patient was admitted to the medical surgical floor for sepsis, hypoxic respiratory failure in the setting of pneumonia and treatment initiated with ceftriaxone and doxycycline. Blood cultures are pending. Full code as per advance directives. When seen, the patient was sleeping arousable to touch with minimal interactions; ROS limited d/t poor ability to report history at this time. No report of nausea, vomiting, chest pain; hematuria had resoleved when seen Review of Systems All systems reviewed & are unremarkable except as noted in HPI and below PFSH All Active Problems (Updated 05/07/24 @ 19:03 by Sienna Garcia APRN) Abnormal urinalysis (Acute) Pulmonary emboli (Chronic) Sepsis (Acute) Hematuria (Acute) Pneumonia (Acute) Acute hypoxic respiratory failure (Acute) Edema of both lower extremities (Acute) Well-managed, with exercise/activity; b/l general .. trial compression and lasix Elevated parathyroid hormone (Acute) Osteoarthritis of right knee (Acute) Steroid injection: 03/04/24; 05/19/2023 Hypercalcemia (Acute) CKD (chronic kidney disease) stage 3, GFR 30-59 ml/min (Acute) Stage 3, 2022, with LALA (GFR <30!) 2' over-diures.. Hx stage 2-3 (2021) Edema of foot (Acute) Knee pain, bilateral (Acute) ? 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 (Worsening, re-start furosemide, 10/2020) Renal calculus Hematuria: CT (01/09/23) vs. CT (04/27/2022):.. largest calculus in the left kidney has now migrated to the upper left ureter/UPJ level (prob responsible for hematuria)..no obvious dilatation of the left collecting system above this level..another calculus again noted in the left left kidney lower pole calyx (no changed position)..previously present 3 mm calculus in the bladder no longer seen and has most probably passed. 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 07/2021 Left knee pain Acute on chronic. Not a surgical candidate. Cane helping - may need training.. BPH w/o urinary obs/LUTS (02/15/11) nocturiaX1-2; INCR 3X 09/2012 Acute on chronic renal failure Acute exacerbation of congestive heart failure Hosp; resolved .. but with too much fluid restriction post hosp! Bakers cyst Rt, 4cm.. incidental finding on US DVT (deep venous thrombosis) New DVT, 02/2021. Xarelto started. Resolved, Eliquis D/C'd 07/2020 by Surg. C. 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 denies this stated that this was due to an interaction a year ago where having the masks on and he his hard of hearing they stated he had dementia which his and current PCP stated he does not. 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 Taylor started him on HCTZ 2005. High BP readings @ ophtho, urol . turns out to be 2' finesteride, Dr. Smallwood d/c'd .. will follow up in July 2018. 125/85 today, 06/2018, ik. Surgical History Hx of cataract removal with insertion of prosthetic lens 12/11/20 [place], [facility] Posterior subcapsular age-related cataract, right eye Nuclear sclerotic cataract of right eye S/P cholecystectomy (01/24/20) S/P ERCP Arthroscopy (02/10/84) in [place], Left knee Family History Son Age: 60 No problems noted. 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 [employer] Current gender identity: male What type of physical activity do you participate in: none Working smoke detector in home: Yes Fire extinguisher in home: Yes Carbon monox detector in home: Yes Additional Social history: unable to assess privately Meds Allergies and Home Medications Allergies Allergy/AdvReac Type Severity Reaction Status Date / Time amlodipine AdvReac Mild nightmares/restless Verified 05/07/24 15:19 sleep hydrochlorothiazide AdvReac Mild possible Verified 05/07/24 15:19 Erectile dysfunction finasteride AdvReac Hypertensio Verified 05/07/24 15:19 n Home Medications ?Medication ?Instructions ?Recorded ?Confirmed ?Type polyvinyl alcohol 1.4 % eye drops 1 drp ophthalmic (eye) PRN PRN 06/11/12 05/07/24 History (Artificial Tears (polyvinyl alcohol)) furosemide 20 mg tablet (Lasix) 20 mg PO BID #180 tabs 09/25/23 05/07/24 Rx ketoconazole 2 % topical cream 1 applic topical DAILY 3 months 09/25/23 05/07/24 Rx #60 grams acetaminophen 650 mg 650 mg PO Q12H PRN pain #60 tabs 12/26/23 05/07/24 Rx tablet,extended release (Tylenol Arthritis Pain) metoprolol tartrate 25 mg tablet 12.5 mg (1/2 x 25 mg) PO DAILY #45 01/06/24 05/07/24 Rx tabs spironolactone 25 mg tablet 25 mg PO DAILY edema #90 tabs 01/06/24 05/07/24 Rx rivaroxaban 10 mg tablet (Xarelto) See Rx Instructions .Route 01/09/24 05/07/24 Rx .COMPLEX #90 tabs Exam Narrative Exam Narrative: Ill-looking 83-year-old male, lethargic but eye-opening with tactile stimulation minimal verbal interaction, moves all 4 extremities appears in no acute distress and nonfocal S1-S2 no murmur, shallow nonlabored breathing with scattered rhonchi throughout with weak cough Abdomen is large nontympanic, soft and nontender; clear urine draining from nephrostomy. Results Labs 05/07/24 10:14 05/07/24 10:14 Labs: Laboratory Results - last 24 hr 05/07/24 05/07/24 05/07/24 09:35 09:40 10:14 WBC 6.07 RBC 4.51 Hgb 12.2 L Hct 39.2 L MCV 87 MCH 27.1 MCHC 31.1 L RDW 16.3 H Plt Count 188 MPV 8.5 Immature Gran % 1.0 Neutrophils % 54.3 Lymphocytes % 31.6 Monocytes % 11.0 Eosinophils % 1.6 Basophils % 0.5 Nucleated RBC % 0.0 Absolute Neutrophils 3.29 Absolute Lymphocytes 1.92 Absolute Monocytes 0.67 Absolute Eosinophils 0.10 Absolute Basophils 0.03 VBG pH 7.37 VBG pCO2 56 H VBG pO2 34 VBG HCO3 33 H VBG Total CO2 30 H VBG O2 Saturation 62 VBG Base Excess 7 H VBG Lactate 1.4 Sodium 140 Potassium 4.1 Chloride 103 Carbon Dioxide 32.6 H Anion Gap 4.4 BUN 16 Creatinine 1.1 Est GFR (CKD-EPI 2020) 66.19 Glucose 126 H Calcium 9.8 Total Bilirubin 0.9 AST 41 H ALT 89 H Alkaline Phosphatase 99 Troponin I 9 NT-Pro-B Natriuret Pep 423 H Total Protein 6.8 Albumin 2.4 L Urine Color Yellow Urine Clarity Cloudy Urine pH 6.0 Ur Specific [place] 1.025 Urine Protein >=300 H Urine Ketones Negative Urine Blood Large H Urine Nitrite Negative Urine Bilirubin Negative Urine Urobilinogen 0.2 Ur Leukocyte Esterase Small H Urine RBC >50 H Urine WBC >50 H Ur Epithelial Cells Negative Urine Crystals Negative Urine Bacteria Few Urine Casts Negative Urine Mucus Negative Urine Other Moderate Yeast Ur Culture Indicated? Yes Urine Glucose Negative COVID-19 Source Nasopharynx SARS-CoV-2 (PCR) Negative Influenza Type A (PCR) Negative Influenza Type B (PCR) Negative RSV (PCR) Negative 05/07/24 05/07/24 11:52 12:23 WBC RBC Hgb Hct MCV MCH MCHC RDW Plt Count MPV Immature Gran % Neutrophils % Lymphocytes % Monocytes % Eosinophils % Basophils % Nucleated RBC % Absolute Neutrophils Absolute Lymphocytes Absolute Monocytes Absolute Eosinophils Absolute Basophils VBG pH VBG pCO2 VBG pO2 VBG HCO3 VBG Total CO2 VBG O2 Saturation VBG Base Excess VBG Lactate Sodium Potassium Chloride Carbon Dioxide Anion Gap BUN Creatinine Est GFR (CKD-EPI 2020) Glucose Calcium Total Bilirubin AST ALT Alkaline Phosphatase Troponin I 8 7 NT-Pro-B Natriuret Pep Total Protein Albumin Urine Color Urine Clarity Urine pH Ur Specific [place] Urine Protein Urine Ketones Urine Blood Urine Nitrite Urine Bilirubin Urine Urobilinogen Ur Leukocyte Esterase Urine RBC Urine WBC Ur Epithelial Cells Urine Crystals Urine Bacteria Urine Casts Urine Mucus Urine Other Ur Culture Indicated? Urine Glucose COVID-19 Source SARS-CoV-2 (PCR) Influenza Type A (PCR) Influenza Type B (PCR) RSV (PCR) Last Vital Signs Temp 36.4 C 05/07/24 08:48 Pulse 110 H 05/07/24 10:12 Resp 20 05/07/24 10:12 BP 162/93 H 05/07/24 08:48 Pulse Ox 94 05/07/24 10:12 Time Spent Time spent with Patient: >75 minutes Time was spent: preparing to see the patient(eg.review tests), obtaining and/or reviewing separately otained hiistory, ordering medications,tests, procedures, referring, communicating with other health medicare compliance auditor, indepentently interpreting results, counseling the patient and care coordination
--- NOTE | 2024-05-07 14:43 | ED.GENADUL_ITS ---
Discharge Plan Disposition Patient Disposition: Admit to [facility] Condition: Serious Discharge Details Clinical Impression: Acute hypoxic respiratory failure, Pneumonia, Hematuria Primary Care Provider: Edna Muniz ED Provider: Heidi Bryant Home Meds and New Rx's Prescriptions: No Action furosemide [Lasix] 20 mg tablet 20 mg PO BID Qty: 180 3RF Rx Instructions: 10/11/2022: Per IK: May have a one additional dose of Furosemide if SOB.(Double dose) ketoconazole 2 % cream 1 applic topical DAILY 90 Days Qty: 60 1RF Rx Instructions: Apply to toenails once daily enoxaparin [Lovenox] 40 mg/0.4 mL syringe 40 mg subcut DAILY Qty: 4 0RF Rx Instructions: Stop xarelto two days prior to surgery, change to lovenox; duration at discretion of surgeon polyvinyl alcohol [Artificial Tears (polyvin alc)] 15 ML drops 1 drp Ophthalmic PRN PRN acetaminophen [Tylenol Arthritis Pain] 650 mg tablet extended release 650 mg PO Q12H PRN (Reason: pain) Qty: 60 2RF metoprolol tartrate 25 mg tablet 12.5 mg PO DAILY Qty: 45 3RF Patient Comments: Per pt. always takes this around [id number] 03/15/24- spironolactone 25 mg tablet 25 mg PO DAILY Qty: 90 3RF Rx Instructions: Continue with afternoon lasix Xarelto 10 mg tablet See Rx Instructions .ROUTE .COMPLEX Qty: 90 3RF Dose Instruction: TAKE 1 TABLET BY MOUTH EVERY DAY WITH A MEAL Rx Instructions: TAKE 1 TABLET BY MOUTH EVERY DAY WITH A MEAL HPI General Date/Time Provider Initiated Documentation: 05/07/24 09:58 . HPI Narrative: The patient is an 83-year-old male with a past medical history of dementia, recent placement of a nephrostomy tube due to recurrent kidney stones and urosepsis, hyperlipidemia, and hypertension, with a recent diagnosis of pulmonary embolism. He presents with a report of blood in the nephrostomy tube for the past day, accompanied by increased work of breathing and a cough for the past 2 days. He reports no known trauma. He is alert and oriented at baseline, as confirmed by his . He is in moderate respiratory distress. He is not typically oxygen- dependent but is now resting comfortably on 1 to 2 liters of oxygen, with saturation levels between 92% and 93%. His current medication regimen includes spironolactone and Xarelto 20 mg daily, which was increased from 12 mg following the PE diagnosis at [facility] a month ago. Related Data Home Medications ?Medication ?Instructions ?Recorded ?Confirmed polyvinyl alcohol 1.4 % eye drops 1 drp ophthalmic (eye) PRN PRN 06/11/12 03/21/24 (Artificial Tears (polyvinyl alcohol)) furosemide 20 mg tablet (Lasix) 20 mg PO BID #180 tabs 09/25/23 03/21/24 ketoconazole 2 % topical cream 1 applic topical DAILY 3 months 09/25/23 03/21/24 #60 grams acetaminophen 650 mg 650 mg PO Q12H PRN pain #60 tabs 12/26/23 03/21/24 tablet,extended release (Tylenol Arthritis Pain) metoprolol tartrate 25 mg tablet 12.5 mg (1/2 x 25 mg) PO DAILY #45 01/06/24 03/21/24 tabs spironolactone 25 mg tablet 25 mg PO DAILY edema #90 tabs 01/06/24 03/21/24 rivaroxaban 10 mg tablet (Xarelto) See Rx Instructions .Route 01/09/24 03/21/24 .COMPLEX #90 tabs enoxaparin 40 mg/0.4 mL 40 mg (0.4 mL) subcut DAILY #4 mL 03/02/24 03/21/24 subcutaneous syringe (Lovenox) Previous Rx's ?Medication ?Instructions ?Recorded furosemide 20 mg tablet (Lasix) 20 mg PO BID #180 tabs 09/25/23 ketoconazole 2 % topical cream 1 applic topical DAILY 3 months 09/25/23 #60 grams acetaminophen 650 mg 650 mg PO Q12H PRN pain #60 tabs 12/26/23 tablet,extended release (Tylenol Arthritis Pain) metoprolol tartrate 25 mg tablet 12.5 mg (1/2 x 25 mg) PO DAILY #45 01/06/24 tabs spironolactone 25 mg tablet 25 mg PO DAILY edema #90 tabs 01/06/24 rivaroxaban 10 mg tablet (Xarelto) See Rx Instructions .Route 01/09/24 .COMPLEX #90 tabs enoxaparin 40 mg/0.4 mL 40 mg (0.4 mL) subcut DAILY #4 mL 03/02/24 subcutaneous syringe (Lovenox) Allergies Allergy/AdvReac Type Severity Reaction Status Date / Time amlodipine AdvReac Mild nightmares/restless Verified 03/21/24 06:31 sleep hydrochlorothiazide AdvReac Mild possible Verified 03/21/24 06:31 Erectile dysfunction finasteride AdvReac Hypertensio Verified 03/21/24 06:31 n General Stated Complaint: RespSymp THALIA: 3 Exam Narrative Exam Narrative: General Appearance: Normal. Vital signs: Within normal limits. HEENT: Within normal limits. Respiratory: wheezing, more pronounced on right. Cardiovascular: Cardiac rate rhythm regular Gastrointestinal: No abdominal tenderness Genitourinary: Nephrostomy tube in place draining no redness around nephrostomy tube site Lymphatic: [List findings, if not mentioned delete this row]. Extremities: 1+ edema in lower extremities. Skin: Warm and dry, no rash. Neurological: Alert and oriented x 2 able to follow basic commands Psychiatric: [List findings, if not mentioned delete the row]. Other observations: Afebrile. Course Vital Signs Vital signs: Vital Signs Temperature 36.4 C 05/07/24 08:48 Pulse 94 H 05/07/24 08:48 Respiratory Rate 22 05/07/24 08:48 Blood Pressure 162/93 H 05/07/24 08:48 Pulse Oximetry 90 L 05/07/24 08:48 Temperature 36.4 C 05/07/24 08:48 Temperature Source Tympanic 05/07/24 08:48 Pulse 110 H 05/07/24 10:12 Respiratory Rate 20 05/07/24 10:12 Respiratory Effort Accessory Muscle Use 05/07/24 10:56 Respiratory Depth Normal 05/07/24 10:56 Blood Pressure 162/93 H 05/07/24 08:48 Pulse Oximetry 94 05/07/24 10:12 Oxygen Delivery Method Nasal Cannula 05/07/24 10:12 Oxygen Flow Rate 2 05/07/24 10:12 Lab/Test Results Lab/Test Results: 05/07/24 10:14 Blood Blood Culture - Pending 05/07/24 09:40 Urine - Reflex from Ua Urine Culture - Pending 05/07/24 09:30 Blood Blood Culture - Pending Laboratory Tests Range/Units 05/07/24 05/07/24 05/07/24 09:35 09:40 10:14 WBC (4.4-10.8) 10^3/uL 6.07 RBC (4.36-5.78) 10^6/uL 4.51 Hgb (13.5-17.5) g/dL 12.2 L Hct (40.0-50.0) % 39.2 L MCV (80-95) fL 87 MCH (27.0-33.0) pg 27.1 MCHC (32.0-36.0) % 31.1 L RDW (11.8-14.1) % 16.3 H Plt Count (130-400) 10^3/uL 188 MPV (8.0-11.0) fL 8.5 Immature Gran % % 1.0 Neutrophils % % 54.3 Lymphocytes % % 31.6 Monocytes % % 11.0 Eosinophils % % 1.6 Basophils % % 0.5 Nucleated RBC % (0.0-0.3) % 0.0 Absolute Neutrophils (1.2-6.7) 10^3/uL 3.29 Absolute Lymphocytes (1.2-3.4) 10^3/uL 1.92 Absolute Monocytes (0.1-0.8) 10^3/uL 0.67 Absolute Eosinophils (0.0-0.7) 10^3/uL 0.10 Absolute Basophils (0.0-0.2) 10^3/uL 0.03 VBG pH (7.31-7.41) 7.37 VBG pCO2 (41-51) mmHg 56 H VBG pO2 mmHg 34 VBG HCO3 (23-28) mmol/L 33 H VBG Total CO2 (24-29) mmol/L 30 H VBG O2 Saturation % 62 VBG Base Excess (-2-3) mmol/L 7 H VBG Lactate (<or=2.0) mmol/L 1.4 Sodium (136-145) mmol/L 140 Potassium (3.5-5.1) mmol/L 4.1 Chloride (98-107) mmol/L 103 Carbon Dioxide (21.0-32.0) mmol/L 32.6 H Anion Gap (3-11) mmol/L 4.4 BUN (7-18) mg/dL 16 Creatinine (0.70-1.30) mg/dL 1.1 Est GFR (CKD-EPI 2020) (mL/min/1.73m2) 66.19 Glucose (74-106) mg/dL 126 H Calcium (8.5-10.1) mg/dL 9.8 Total Bilirubin (0.2-1.0) mg/dL 0.9 AST (15-37) U/L 41 H ALT (16-63) U/L 89 H Alkaline Phosphatase (46-116) U/L 99 Troponin I (<or=76) ng/L 9 NT-Pro-B Natriuret Pep (<300) pg/mL 423 H Total Protein (6.4-8.2) g/dL 6.8 Albumin (3.4-5.0) g/dL 2.4 L Urine Color (Yellow) Yellow Urine Clarity (Clear) Cloudy Urine pH (5-8) 6.0 Ur Specific [place] (1.005-1.025) 1.025 Urine Protein (Neg-Trace) mg/dL >=300 H Urine Ketones (Negative) mg/dL Negative Urine Blood (Negative) Large H Urine Nitrite (Negative) Negative Urine Bilirubin (Negative) Negative Urine Urobilinogen (Up to 0.2) mg/dL 0.2 Ur Leukocyte Esterase (Negative) Small H Urine RBC (0-2) HPF >50 H Urine WBC (0-5) HPF >50 H Ur Epithelial Cells (Negative) HPF Negative Urine Crystals (Negative) HPF Negative Urine Bacteria (Negative) HPF Few Urine Casts (Negative) LPF Negative Urine Mucus (Negative) Negative Urine Other (Negative) Moderate Yeast Ur Culture Indicated? Yes Urine Glucose (Negative) mg/dL Negative COVID-19 Source Nasopharynx SARS-CoV-2 (PCR) (Negative) Negative Influenza Type A (PCR) (Negative) Negative Influenza Type B (PCR) (Negative) Negative RSV (PCR) (Negative) Negative Range/Units 05/07/24 05/07/24 11:52 12:23 WBC (4.4-10.8) 10^3/uL RBC (4.36-5.78) 10^6/uL Hgb (13.5-17.5) g/dL Hct (40.0-50.0) % MCV (80-95) fL MCH (27.0-33.0) pg MCHC (32.0-36.0) % RDW (11.8-14.1) % Plt Count (130-400) 10^3/uL MPV (8.0-11.0) fL Immature Gran % % Neutrophils % % Lymphocytes % % Monocytes % % Eosinophils % % Basophils % % Nucleated RBC % (0.0-0.3) % Absolute Neutrophils (1.2-6.7) 10^3/uL Absolute Lymphocytes (1.2-3.4) 10^3/uL Absolute Monocytes (0.1-0.8) 10^3/uL Absolute Eosinophils (0.0-0.7) 10^3/uL Absolute Basophils (0.0-0.2) 10^3/uL VBG pH (7.31-7.41) VBG pCO2 (41-51) mmHg VBG pO2 mmHg VBG HCO3 (23-28) mmol/L VBG Total CO2 (24-29) mmol/L VBG O2 Saturation % VBG Base Excess (-2-3) mmol/L VBG Lactate (<or=2.0) mmol/L Sodium (136-145) mmol/L Potassium (3.5-5.1) mmol/L Chloride (98-107) mmol/L Carbon Dioxide (21.0-32.0) mmol/L Anion Gap (3-11) mmol/L BUN (7-18) mg/dL Creatinine (0.70-1.30) mg/dL Est GFR (CKD-EPI 2020) (mL/min/1.73m2) Glucose (74-106) mg/dL Calcium (8.5-10.1) mg/dL Total Bilirubin (0.2-1.0) mg/dL AST (15-37) U/L ALT (16-63) U/L Alkaline Phosphatase (46-116) U/L Troponin I (<or=76) ng/L 8 7 NT-Pro-B Natriuret Pep (<300) pg/mL Total Protein (6.4-8.2) g/dL Albumin (3.4-5.0) g/dL Urine Color (Yellow) Urine Clarity (Clear) Urine pH (5-8) Ur Specific [place] (1.005-1.025) Urine Protein (Neg-Trace) mg/dL Urine Ketones (Negative) mg/dL Urine Blood (Negative) Urine Nitrite (Negative) Urine Bilirubin (Negative) Urine Urobilinogen (Up to 0.2) mg/dL Ur Leukocyte Esterase (Negative) Urine RBC (0-2) HPF Urine WBC (0-5) HPF Ur Epithelial Cells (Negative) HPF Urine Crystals (Negative) HPF Urine Bacteria (Negative) HPF Urine Casts (Negative) LPF Urine Mucus (Negative) Urine Other (Negative) Ur Culture Indicated? Urine Glucose (Negative) mg/dL COVID-19 Source SARS-CoV-2 (PCR) (Negative) Influenza Type A (PCR) (Negative) Influenza Type B (PCR) (Negative) RSV (PCR) (Negative) Medical Decision Making Labs: Hemoglobin 12.2, no leukocytosis, VBG normal, glucose 126, mild elevation in transaminases (downtrending), BNP 423. Urine: large blood, small leukocyte esterase, >50 RBCs and WBCs, few bacteria and yeast. Imaging: CT chest shows right lower lobe infiltrate. CT abdomen/pelvis shows nephrostomy tube with resolving fluid collection. Initial Assessment: 83-year-old male with past medical history of dementia, recent nephrostomy tube placement due to recurrent kidney stones and urosepsis, hyperlipidemia, hypertension, and recent pulmonary embolism. Presents with blood in nephrostomy tube, increased work of breathing, and cough. Moderate respiratory distress, wheezing more pronounced on the right, 1+ edema in bilateral lower extremities, afebrile, blood noted in catheter. Differential Diagnosis: - Hematuria: Evaluated with CT chest, abdomen, pelvis. Chest CT shows right lower lobe infiltrate. Abdominal/pelvic CT shows nephrostomy tube with resolving fluid collection. Labs: Hemoglobin 12.2, no leukocytosis, glucose 126, mild elevation in transaminases (downtrending), BNP 423. Urine: large blood, small leukocyte esterase, >50 RBCs and WBCs, few bacteria and yeast. - Pulmonary Embolism: On Xarelto 20 mg daily (increased from 12 mg post-PE diagnosis). No evidence of PE on CT. - Pneumonia: Received ceftriaxone and doxycycline. - Respiratory Distress: Moderate respiratory distress with wheezing, more pronounced on right. Afebrile after DuoNebs, resting comfortably, requiring oxygen for desaturations (88-90%). ED Course: - CT chest, abdomen, pelvis ordered. - Chest CT: right lower lobe infiltrate. - Abdominal/pelvic CT: nephrostomy tube with resolving fluid collection. - Labs: Hemoglobin 12.2, no leukocytosis, glucose 126, mild elevation in transaminases (downtrending), BNP 423. - Urine: large blood, small leukocyte esterase, >50 RBCs and WBCs, few bacteria and yeast. -Patient is on Xarelto for history of PE, 20 mg patient does remain hemodynamically stable despite minor hematuria - Afebrile after DuoNebs for moderate respiratory distress. - Received methylprednisolone 120 mg and 500 mL fluid, improved tachycardia. - No severe sepsis. - No evidence of PE on CT per radiology interpretation. - Spoke with Dr. Smallwood regarding yeast and WBCs in nephrostomy tube culture; recommends waiting for urine culture to treat. - Patient wishes to remain full CODE STATUS. - Case discussed with Dr. Hernandez who accepts patient to service. Final Assessment: Patient with hematuria, moderate respiratory distress, and recent pulmonary embolism. Comprehensive evaluation including CT imaging and lab tests. Treatment included DuoNebs, methylprednisolone, fluids, ceftriaxone, and doxycycline. No severe sepsis or evidence of PE. Patient stable and afebrile, requiring oxygen. Clinical Impression: - Hematuria - Pulmonary Embolism - Pneumonia - Respiratory Distress Disposition: - Admission: Patient accepted to service by Dr. Hernandez. MDM Components Evaluation: - Number of Differential Diagnoses or Management Options: Hematuria, Pulmonary Embolism, Pneumonia, Respiratory Distress. - Amount and Complexity of Data Reviewed: CT chest, abdomen, pelvis; lab tests; urine culture; consultation with Dr. Smallwood. - Risk of Complication and Morbidity or Mortality: Moderate respiratory distress, recent pulmonary embolism, potential infection from nephrostomy tube. Quality:[facility] Health Related Social Needs: No Data to Display Critical Care Time Critical Care Time Attestation: 35 minutes of critical care time secondary to oxygen requirement acute hypoxic respiratory failure DuoNeb administration CT interpretation and reviewed telemetry monitoring steroid intervention and admission to the hospitalist consultation with the hospitalist [facility] All Active Problems (Updated 05/07/24 @ 14:49 by EMILIE Champion) Hematuria (Acute) Pneumonia (Acute) Acute hypoxic respiratory failure (Acute) Edema of both lower extremities (Acute) Well-managed, with exercise/activity; b/l general .. trial compression and lasix Elevated parathyroid hormone (Acute) Osteoarthritis of right knee (Acute) Steroid injection: 03/04/24; 05/19/2023 Hypercalcemia (Acute) CKD (chronic kidney disease) stage 3, GFR 30-59 ml/min (Acute) Stage 3, 2022, with LALA (GFR <30!) 2' over-diures.. Hx stage 2-3 (2021) Edema of foot (Acute) Knee pain, bilateral (Acute) ? goop injection Onychomycosis (Acute) Lumbar spondylosis (Acute) Lumbar back pain (Acute) Lumbar adjacent segment disease with spondylolisthesis (Acute) intermission coordinator (current) use of anticoagulants (Acute) Osteoarthritis of left knee (Acute) Steroid injection: 03/04/24; 05/19/2023; 12/07/2020 HTN (hypertension) (Chronic) Hyperlipidemia (Chronic 10/24/04) RISK 12% 11/2005; LDL goal 100 Need labs, [ ] Fall 201807/01/18 Medical History (Updated 05/07/24 @ 14:49 by EMILIE Champion) Leg edema Resolves with activity, qAM, 04/2022.. (Worsening, re-start furosemide, 10/2020) Renal calculus Hematuria: CT (01/09/23) vs. CT (04/27/2022):.. largest calculus in the left kidney has now migrated to the upper left ureter/UPJ level (prob responsible for hematuria)..no obvious dilatation of the left collecting system above this level..another calculus again noted in the left left kidney lower pole calyx (no changed position)..previously present 3 mm calculus in the bladder no longer seen and has most probably passed. 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 07/2021 Left knee pain Acute on chronic. Not a surgical candidate. Cane helping - may need training.. BPH w/o urinary obs/LUTS (02/15/11) nocturiaX1-2; INCR 3X 09/2012 Acute on chronic renal failure Acute exacerbation of congestive heart failure Hosp; resolved .. but with too much fluid restriction post hosp! Bakers cyst Rt, 4cm.. incidental finding on US DVT (deep venous thrombosis) New DVT, 02/2021. Xarelto started. Resolved, Eliquis D/C'd 07/2020 by Surg. C. 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 denies this stated that this was due to an interaction a year ago where having the masks on and he his hard of hearing they stated he had dementia which his and current PCP stated he does not. 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 Taylor started him on HCTZ 2005. High BP readings @ ophtho, urol . turns out to be 2' finesteride, Dr. Smallwood d/c'd .. will follow up in July 2018. 125/85 today, 06/2018, ik. Surgical History Hx of cataract removal with insertion of prosthetic lens 12/11/20 [place], [facility] Posterior subcapsular age-related cataract, right eye Nuclear sclerotic cataract of right eye S/P cholecystectomy (01/24/20) S/P ERCP Arthroscopy (02/10/84) in CT, Left knee Family History Son Age: 60 No problems noted. 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
--- NOTE | 2024-05-07 18:04 | W.PC.ACHO ---
Registration Status: Primary Language: Preferred Language: ED Information & Data Chief Complaint RespSymp 05/07/24 14:49 Triage Note Blood noticed in nephrostomy 05/07/24 08:48 tube for x1 day, using accessory muscles to breathe , cough for unknown amount time Medical / Surgical History (Last Reviewed 03/15/24 @ 14:40 by Elliot Nunes) Leg edema Renal calculus Gout due to renal impairment involving toe of right foot Renal insufficiency Left knee pain BPH w/o urinary obs/LUTS (02/15/11) Acute on chronic renal failure Acute exacerbation of congestive heart failure Bakers cyst DVT (deep venous thrombosis) C. 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) Benign hypertension (12/09/05) (Last Reviewed 03/15/24 @ 14:40 by Elliot Nunes) Hx of cataract removal with insertion of prosthetic lens Posterior subcapsular age-related cataract, right eye Nuclear sclerotic cataract of right eye S/P cholecystectomy (01/24/20) S/P ERCP Arthroscopy (02/10/84) Most Recent Vital Signs Temperature 36.4 C 05/07/24 15:16 Temperature Source Tympanic 05/07/24 15:16 Pulse 107 H 05/07/24 15:16 Pulse Rhythm Regular 05/07/24 16:33 Pulse 107 H 05/07/24 15:01 Respiratory Rate 19 05/07/24 15:16 Respiratory Effort Labored, Accessory Muscle Use, Incrsd Work of Breathing 05/07/24 16:33 Respiratory Depth Shallow 05/07/24 16:33 Respiratory Pattern Normal 05/07/24 16:33 Blood Pressure 151/71 H 05/07/24 15:16 Blood Pressure Mean 100 05/07/24 15:01 Pulse Oximetry 92 05/07/24 15:16 Oxygen Delivery Method Nasal Cannula 05/07/24 16:33 Oxygen Flow Rate 3 05/07/24 16:33 Pain Level 0 05/07/24 16:33 Allergies amlodipine Adverse Reaction (Mild, Verified 05/07/24 15:19) nightmares/restless sleep hydrochlorothiazide Adverse Reaction (Mild, Verified 05/07/24 15:19) possible Erectile dysfunction finasteride Adverse Reaction (Verified 05/07/24 15:19) Hypertension Precautions Isolation Standard precaution 05/07/24 10:56 IV IV Catheter Type [Right Saline Lock Forearm] IV Catheter Gauge [Right 20 Forearm] Diet Orders Category Date Time Status Diabetes Consistent CHO/Heart Healthy [DIET] Nutrition 05/07/24 Dinner Active Diagnostics 05/07/24 05/07/24 05/07/24 Range/Units 12:23 11:52 10:14 WBC 6.07 (4.4-10.8) 10^3/uL RBC 4.51 (4.36-5.78) 10^6/uL Hgb 12.2 L (13.5-17.5) g/dL Hct 39.2 L (40.0-50.0) % MCV 87 (80-95) fL MCH 27.1 (27.0-33.0) pg MCHC 31.1 L (32.0-36.0) % RDW 16.3 H (11.8-14.1) % Plt Count 188 (130-400) 10^3/uL MPV 8.5 (8.0-11.0) fL Immature Gran % 1.0 % Neutrophils % 54.3 % Lymphocytes % 31.6 % Monocytes % 11.0 % Eosinophils % 1.6 % Basophils % 0.5 % Nucleated RBC % 0.0 (0.0-0.3) % Absolute Neutrophils 3.29 (1.2-6.7) 10^3/uL Absolute Lymphocytes 1.92 (1.2-3.4) 10^3/uL Absolute Monocytes 0.67 (0.1-0.8) 10^3/uL Absolute Eosinophils 0.10 (0.0-0.7) 10^3/uL Absolute Basophils 0.03 (0.0-0.2) 10^3/uL VBG pH 7.37 (7.31-7.41) VBG pCO2 56 H (41-51) mmHg VBG pO2 34 mmHg VBG HCO3 33 H (23-28) mmol/L VBG Total CO2 30 H (24-29) mmol/L VBG O2 Saturation 62 % VBG Base Excess 7 H (-2-3) mmol/L VBG Lactate 1.4 (<or=2.0) mmol/L Sodium 140 (136-145) mmol/L Potassium 4.1 (3.5-5.1) mmol/L Chloride 103 (98-107) mmol/L Carbon Dioxide 32.6 H (21.0-32.0) mmol/L Anion Gap 4.4 (3-11) mmol/L BUN 16 (7-18) mg/dL Creatinine 1.1 (0.70-1.30) mg/dL Est GFR (CKD-EPI 2020) 66.19 (mL/min/1.73m2) Glucose 126 H (74-106) mg/dL Calcium 9.8 (8.5-10.1) mg/dL Total Bilirubin 0.9 (0.2-1.0) mg/dL AST 41 H (15-37) U/L ALT 89 H (16-63) U/L Alkaline Phosphatase 99 (46-116) U/L Troponin I 7 8 9 (<or=76) ng/L NT-Pro-B Natriuret Pep 423 H (<300) pg/mL Total Protein 6.8 (6.4-8.2) g/dL Albumin 2.4 L (3.4-5.0) g/dL Urine Color (Yellow) Urine Clarity (Clear) Urine pH (5-8) Ur Specific [place] (1.005-1.025) Urine Protein (Neg-Trace) mg/dL Urine Ketones (Negative) mg/dL Urine Blood (Negative) Urine Nitrite (Negative) Urine Bilirubin (Negative) Urine Urobilinogen (Up to 0.2) mg/dL Ur Leukocyte Esterase (Negative) Urine RBC (0-2) HPF Urine WBC (0-5) HPF Ur Epithelial Cells (Negative) HPF Urine Crystals (Negative) HPF Urine Bacteria (Negative) HPF Urine Casts (Negative) LPF Urine Mucus (Negative) Urine Other (Negative) Ur Culture Indicated? Urine Glucose (Negative) mg/dL COVID-19 Source SARS-CoV-2 (PCR) (Negative) Influenza Type A (PCR) (Negative) Influenza Type B (PCR) (Negative) RSV (PCR) (Negative) 05/07/24 05/07/24 Range/Units 09:40 09:35 WBC (4.4-10.8) 10^3/uL RBC (4.36-5.78) 10^6/uL Hgb (13.5-17.5) g/dL Hct (40.0-50.0) % MCV (80-95) fL MCH (27.0-33.0) pg MCHC (32.0-36.0) % RDW (11.8-14.1) % Plt Count (130-400) 10^3/uL MPV (8.0-11.0) fL Immature Gran % % Neutrophils % % Lymphocytes % % Monocytes % % Eosinophils % % Basophils % % Nucleated RBC % (0.0-0.3) % Absolute Neutrophils (1.2-6.7) 10^3/uL Absolute Lymphocytes (1.2-3.4) 10^3/uL Absolute Monocytes (0.1-0.8) 10^3/uL Absolute Eosinophils (0.0-0.7) 10^3/uL Absolute Basophils (0.0-0.2) 10^3/uL VBG pH (7.31-7.41) VBG pCO2 (41-51) mmHg VBG pO2 mmHg VBG HCO3 (23-28) mmol/L VBG Total CO2 (24-29) mmol/L VBG O2 Saturation % VBG Base Excess (-2-3) mmol/L VBG Lactate (<or=2.0) mmol/L Sodium (136-145) mmol/L Potassium (3.5-5.1) mmol/L Chloride (98-107) mmol/L Carbon Dioxide (21.0-32.0) mmol/L Anion Gap (3-11) mmol/L BUN (7-18) mg/dL Creatinine (0.70-1.30) mg/dL Est GFR (CKD-EPI 2020) (mL/min/1.73m2) Glucose (74-106) mg/dL Calcium (8.5-10.1) mg/dL Total Bilirubin (0.2-1.0) mg/dL AST (15-37) U/L ALT (16-63) U/L Alkaline Phosphatase (46-116) U/L Troponin I (<or=76) ng/L NT-Pro-B Natriuret Pep (<300) pg/mL Total Protein (6.4-8.2) g/dL Albumin (3.4-5.0) g/dL Urine Color Yellow (Yellow) Urine Clarity Cloudy (Clear) Urine pH 6.0 (5-8) Ur Specific [place] 1.025 (1.005-1.025) Urine Protein >=300 H (Neg-Trace) mg/dL Urine Ketones Negative (Negative) mg/dL Urine Blood Large H (Negative) Urine Nitrite Negative (Negative) Urine Bilirubin Negative (Negative) Urine Urobilinogen 0.2 (Up to 0.2) mg/dL Ur Leukocyte Esterase Small H (Negative) Urine RBC >50 H (0-2) HPF Urine WBC >50 H (0-5) HPF Ur Epithelial Cells Negative (Negative) HPF Urine Crystals Negative (Negative) HPF Urine Bacteria Few (Negative) HPF Urine Casts Negative (Negative) LPF Urine Mucus Negative (Negative) Urine Other Moderate Yeast (Negative) Ur Culture Indicated? Yes Urine Glucose Negative (Negative) mg/dL COVID-19 Source Nasopharynx SARS-CoV-2 (PCR) Negative (Negative) Influenza Type A (PCR) Negative (Negative) Influenza Type B (PCR) Negative (Negative) RSV (PCR) Negative (Negative) 05/07/24 10:14 Blood Culture - Pending Blood 05/07/24 09:40 Urine Culture - Pending Urine - Reflex from Ua 05/07/24 09:30 Blood Culture - Pending Blood Intake and Output - 24 Hour Total 05/07/24 08:31 thru 05/07/24 16:33 Intake Total 660 Balance 660 Weight 112.763 kg Intake: IV 660 Falls Risk Assessment History of Falls No History 05/07/24 16:33 Contributing Factors Confusion 05/07/24 16:33 Ambulatory Aids Uses ambulatory device 05/07/24 16:33 Tubes/Lines With any additional score 05/07/24 16:33 Gait Evaluation W/no contributing factors 05/07/24 16:33 Cognition Cognitive impairment 05/07/24 16:33 Fall Total Score 63 05/07/24 16:33 Level of Risk High Risk 05/07/24 16:33 v v v v v v v v v Sending and/or Receiving Nurses: Please use comment section below to note any information pertinent to the patient hand-off not included above. Information / Comments: Report received from: Destiny Frances RN. All questions were answered.
[2024-05-07 18:54] LABS: BE (Venous) 3 mmol/L (-2-3); HCO3 (Venous) 28 mmol/L (23-28); O2 Sat (Venous) 97 %; TCO2 (Venous) 26 mmol/L (24-29); pCO2 (Venous) 46 mmHg (41-51); pO2 (Venous) 80 mmHg
[2024-05-07] MEDS: QUEtiapine 25 MG TAB PO (21:37)
[2024-05-07] MEDS: Normal Saline Flush 10 ML SYR IVP (21:37)
--- NOTE | 2024-05-07 21:54 | RESPIRATORY ---
Addendum entered by Anthony Solis 05/07/24 22:57: RN is aware pt. is on blow by oxygen set at 12l/min oxymask to maintain sats. Original Note: 2056: pt. refused to continue wearing o2 set at 3l/min NC. RT tried multiple times but pt. did not want to be placed back. Pt. is alert, conscious, RT provided explanation about the importance of oxygen therapy and how it help maintain patient oxygenation but patient still refused by saying he does not want it and requested RT to leave the room. Immediately RN was informed, RN and RT tried multiple times but pt. still did not want to be placed back. However, RT set up a oxymask for blow by oxygen deliver at bedside. RN informed RT that MD is notified and also I myself notifed MD through [employer].
[2024-05-08] VITALS (11 sets, daily range): BP systolic 120–155; BP diastolic 72–85; PULSE 80–91; RESP 5–22; TEMP 35.9–36.5; O2SAT 89–97
[2024-05-08] MEDS: Haloperidol 5 MG/ML VIAL 1 MG IM/IV (00:34)
[2024-05-08 05:34] LABS: BE (Venous) 5 mmol/L (-2-3); HCO3 (Venous) 30 mmol/L (23-28); O2 Sat (Venous) 95 %; TCO2 (Venous) 28 mmol/L (24-29); pCO2 (Venous) 49 mmHg (41-51); pO2 (Venous) 70 mmHg
[2024-05-08 05:36] LABS: Lactate 0.8 mmol/L (<or=2.0)
[2024-05-08 06:43] LABS: Procalcitonin < 0.10 ng/mL
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
[2024-05-08] MEDS: Albuterol/Ipratropium 3 ML UPD VIAL UPD ×3 (09:21→22:10)
--- NOTE | 2024-05-08 12:12 | PHA.REVIEW2 ---
Pharmacy Admission Review Admission Clinical Review Admission Pharmacy Review: Abnormal urinalysis (Acute) Sepsis (Acute) Hematuria (Acute) Pneumonia (Acute) Acute hypoxic respiratory failure (Acute) amlodipine Adverse Reaction (Mild, Verified 05/07/24 15:19) nightmares/restless sleep hydrochlorothiazide Adverse Reaction (Mild, Verified 05/07/24 15:19) possible Erectile dysfunction finasteride Adverse Reaction (Verified 05/07/24 15:19) Hypertension Resuscitation Status Full Code Height 5 ft 5 in Weight 112.763 kg Comments Comments/Follow Ups: Per nurse patient is refusing meds, currently has no IV access and has been aggressive towards nursing Pharmacy Admission Review Renal Dosing Renal Dosing: BUN 16 mg/dL (7-18) 05/07/24 10:14 Creatinine 1.1 mg/dL (0.70-1.30) 05/07/24 10:14 Medications needing adjustments: Reviewed (CrCl 57.98 mL/min) List of meds needing interventions: Current medications are okay Anticoagulation Anticoagulation: Hgb 12.2 g/dL (13.5-17.5) L 05/07/24 10:14 Hct 39.2 % (40.0-50.0) L 05/07/24 10:14 Plt Count 188 10^3/uL (130-400) 05/07/24 10:14 Creatinine 1.1 mg/dL (0.70-1.30) 05/07/24 10:14 DVT Prophylaxis: Reviewed Medications: Rivaroxaban (10mg daily) Relevant Labs Relevant Labs: Sodium 140 mmol/L (136-145) 05/07/24 10:14 Potassium 4.1 mmol/L (3.5-5.1) 05/07/24 10:14 Chloride 103 mmol/L (98-107) 05/07/24 10:14 Electrolytes, C-Reactive P, ESR: Reviewed (No new labs for today) Cardiac Review Cardiac Review: Troponin I 7 ng/L (<or=76) 05/07/24 12:23 NT-Pro-B Natriuret Pep 423 pg/mL (<300) H 05/07/24 10:14 BP, HR, EF%: Reviewed (BP and HR WNL) List meds needing interventions: Has orders for furosemide 20mg PO BID, metoprolol 12.5mg daily and spironolactone 25mg daily QTc Review QTc: Reviewed (406 from 05/07/24) IV to PO Switch IV Medications: Reviewed (ceftriaxone and doxycycline) Home Meds Home Med List reviewed: Reviewed Relevent Home Meds Not ordered & why?: ketoconazole cream Current Meds Current Medication Order Review: Reviewed Pharmacy Antibiotic Review Relevant Labs: WBC 6.07 10^3/uL (4.4-10.8) 05/07/24 10:14 Procalcitonin < 0.10 ng/mL 05/08/24 05:30 Temperature 35.9 C Temperature 36.0 C Microbiology 05/07/24 09:30 Blood Culture - Preliminary Blood NO GROWTH 24 HOURS 05/07/24 09:40 Urine Culture - Preliminary Urine - Reflex from Ua YEAST Pharmacy Antibiotic Activity: C/S review and Reviewed, no change Comments: Patient is on ceftriaxone and doxycycline, day 2, for pneumonia/sepsis. Provider aware that patient currently does not have any IV access, antibiotics have not been adjusted yet. Comments Comments/Follow Ups: Per nurse patient is refusing meds, currently has no IV access and has been aggressive towards nursing
--- NOTE | 2024-05-08 12:35 | W.PM.PROGNOT ---
Date of Service Date of service: 05/08/24 Time of Service: 11:45 Assessment and Plan Assessment and plan (1) Sepsis: Status: Acute Assessment and plan: On admission met sepsis criteria met with tachypnea RR 28 , tachyccardia HR 107 and pulmonary source of infection as below VS now findings UTI with yeast (2) Acute hypoxic respiratory failure: Status: Acute Assessment and plan: New O2 requirement in the setting of pneumonia , patient also has a history of CHF with LVEF 45-50% and is on oral lasix Aldactone stopped by [facility] in 03/2024 VBG PCO2 56 - will repeat 49 Wean O2 as tolerated for sat 92% and above - no COPD Dx as per spouse - remote smoking Hx Solumedrol 125 mg IVP in the ED- confused and aggressive at night -ADR VS delirium in acute care hospitalisation with sepsis - will not give prednisone at this time (3) Pneumonia: Status: Acute Assessment and plan: Blood C&S pending- 500 ml of IVF in the ED, Hx of CHF with LVEF 45-50% will hold of further bolus - On doxycycline and ceftriaxone initially but has a recent history of IV antibiotic for pseudomonas MRSA PCR Discontinue ceftriaxone and add cefepime Mucinex IS acapella (4) Yeast UTI: Status: Acute Assessment and plan: As per urology - will wait for culture results to cover abnormal UA on admission Yeast > 100K in Cx- will start fluconazole IV Considering nephrology consult VS referral opt re: stent replacement VS irrigation with antifungal Rx (5) Confusion associated with infection: Status: Acute Assessment and plan: Confusion in the setting of sepsis d/t pneumonia/ UTI most likely delirium as spouse mentioned dementia suspicion since repetitive hospital admission since 03/2024 Spouse had ask for light sedation to be given to patient overnight as the patient had pulled IV, striked staff and refused treatments- seroquel was given then haldol- delayed efficacy Seroquel agreed upon today again s/p discussion with spouse Seroquel 25 mg PO BID, titrate dose as per response Consider low dose Geodon ( 10 mg IM) if above fails (6) Pulmonary emboli: Status: Chronic Assessment and plan: On Xerelto [employer]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 Boyd Subjective Subjective Patient reports: tolerating liquids well, tolerating a regular diet, voiding w/o difficulty (nephrostomy w/o hematuria) and bowel movement; denies no new complaints (Asking for the front door to leave, refusing treatment and wants to reverse code status- Spouse stated that she is the POA and that ahs been confused since 03/21/24 when he was found to have a renal stone and transferred to [facility], then PE developing while at [facility] - then UTI w pseudomonas wit), diarrhea, vomiting, shortness of breath or fever Exam Narrative Exam Narrative: Ill-looking 83-year-old male, lethargic but eye-opening with tactile stimulation minimal verbal interaction, moves all 4 extremities appears in no acute distress and nonfocal S1-S2 no murmur, shallow nonlabored breathing with fine crackle mid- right lung field w diminished base- with weak cough Abdomen is large soft and nontender; clear urine draining from nephrostomy, no CVA tenderness Objective Last Vital Signs Temp 35.9 C L 05/08/24 11:26 Pulse 85 05/08/24 11:26 Resp 16 05/08/24 11:26 BP 120/76 05/08/24 11:26 Pulse Ox 95 05/08/24 11:26 Laboratory Results - last 24 hr 05/07/24 05/07/24 05/08/24 12:23 18:50 05:30 VBG pH 7.40 7.40 VBG pCO2 46 49 VBG pO2 80 70 VBG HCO3 28 30 H VBG Total CO2 26 28 VBG O2 Saturation 97 95 VBG Base Excess 3 5 H VBG Lactate 0.8 Troponin I 7 Procalcitonin < 0.10 Time Spent with Patient Time Spent with Patient: >50 minutes Time was spent: preparing to see the patient(eg.review tests), obtaining and/or reviewing separately otained hiistory, ordering medications,tests, procedures, referring, communicating with other health career technology teacher, indepentently interpreting results, counseling the patient and care coordination
[2024-05-08] MEDS: QUEtiapine 25 MG TAB PO (13:13)
[2024-05-08] MEDS: CEFEPIME 2 GM in Normal Saline 100 ML IVPB (14:48)
[2024-05-08] MEDS: Normal Saline Flush 10 ML SYR IVP ×2 (14:48→16:02)
[2024-05-08 14:59] LABS: Abs Immature Grans 0.07 10^3/uL (0.0-0.06); Absolute Basophil Count 0.03 10^3/uL (0.0-0.2); Absolute Eosinophil Count 0.03 10^3/uL (0.0-0.7); Absolute Lymphocyte Count 1.01 10^3/uL (1.2-3.4); Absolute Monocyte Count 0.58 10^3/uL (0.1-0.8); Absolute Neutrophil Count 4.05 10^3/uL (1.2-6.7); Basophils % 0.5 %; Eosinophils % 0.5 %; HCT 39.7 % (40.0-50.0); HGB 12.4 g/dL (13.5-17.5); Immature Grans % 1.2 %; Lymphocytes % 17.5 %; MCH 26.9 pg (27.0-33.0); MCHC 31.2 % (32.0-36.0); MCV 86 fL (80-95); MPV 8.6 fL (8.0-11.0); Monocytes % 10.1 %; Neutrophils % 70.2 %; Platelet Count 194 10^3/uL (130-400); RBC 4.61 10^6/uL (4.36-5.78); RDW 16.1 % (11.8-14.1); RDW-SD 50.3 fL; WBC 5.77 10^3/uL (4.4-10.8)
[2024-05-08 15:10] LABS: ALT 74 U/L (16-63); AST 34 U/L (15-37); Albumin 2.5 g/dL (3.4-5.0); Alkaline Phosphatase 97 U/L (46-116); BUN 22 mg/dL (7-18); Bilirubin, Total 0.5 mg/dL (0.2-1.0); Calcium 9.8 mg/dL (8.5-10.1); Chloride 105 mmol/L (98-107); Estimated GFR 74.21 (mL/min/1.73m2); Glucose 124 mg/dL (74-106); Sodium 141 mmol/L (136-145); Total Protein 6.9 g/dL (6.4-8.2)
[2024-05-08] MEDS: Metoprolol 12.5 MG TAB PO (16:01)
[2024-05-08] MEDS: Furosemide 20 MG TAB PO (16:01)
[2024-05-08] MEDS: guaiFENesin 600 MG TABCR PO (16:22)
[2024-05-08 16:25] LABS: MRSA PCR Negative (Negative)
[2024-05-08] MEDS: QUEtiapine 50 MG TAB 25 MG PO (18:43)
[2024-05-08] MEDS: Ziprasidone 20 MG VIAL 10 MG IM (23:32)
[2024-05-08] MEDS: Water,Injection,Sterile 10 ML VIAL (23:40)
[2024-05-09] VITALS (10 sets, daily range): BP systolic 99–139; BP diastolic 54–89; PULSE 82–96; RESP 3–24; TEMP 36.2–36.7; O2SAT 87–96
[2024-05-09] MEDS: Albuterol/Ipratropium 3 ML UPD VIAL UPD ×3 (03:49→15:49)
--- NOTE | 2024-05-09 09:09 | PGE_ITS ---
Date of Service Date of service: 05/09/24 Time of Service: 09:09 Assessment and Plan Assessment and plan (1) Sepsis: Status: Acute Assessment and plan: Sepsis criteria met on admission with tachypnea RR 28 , tachyccardia HR 107 and pulmonary source as per point 3 VS source as per point 4 (2) Acute hypoxic respiratory failure: Status: Acute Assessment and plan: improved O2 requirement in the setting of pneumonia , patient also has a history of CHF with LVEF 45-50% and is on oral lasix home dose Aldactone stopped by [facility] in 03/2024-not resumed Initial VBG PCO2 56 - will repeat 49 Continue to wean O2 as tolerated for sat 92% and above - remote smoking Hx w/o COPD Dx Solumedrol 125 mg IVP in the ED- confused and aggressive at night -ADR VS delirium in acute care hospitalization with sepsis - will not give prednisone at this time (3) Pneumonia: Status: Acute Assessment and plan: Blood C&S negative at 48 hours IV access lost overnight Did not receive doxycycline and cefepime Recent history of IV antibiotic for pseudomonas -MRSA neagative Will transiton to oral doxycycline and oral levaquin EKG SR 91 QTC 436 ms Increased Mucinex dosing Continue IS acapella and nebs (4) Yeast UTI: Status: Acute Assessment and plan: As per urology - will wait for culture results to cover abnormal UA on admission Yeast > 100K in Cx- will start fluconazole IV- IV access lost Transition to oral fluconazole Dr. Gregg at [facility] Urology recommendation as of 05/08:Obtain sensitivity- possible at [facility] but pathogen is not Sharon Albican as per micro on 05/09 Will repeat urine Cx: goal no further yeast growth No need for nephrostomy antifungal irrigation at this time Outpatient urology f/u as planned at d/c (5) Confusion associated with infection: Status: Acute Assessment and plan: Worsening confusion in the setting of sepsis d/t pneumonia/ UTI most likely delirium as spouse mentioned dementia suspicion since repetitive hospital admission since 03/2024 see not from 05/08 for discussion with POA/ spouse Improved day time but ongoing at - had a dose of geodon 10 mg IM last night Increase 18:00 seroquel to 37.5 and continue AM dosing (6) Pulmonary emboli: Status: Chronic Assessment and plan: Continue Xerelto as per home dose No need for pharmacologic DVT prophylaxis at this time (7) Hematuria: Status: Acute Assessment and plan: On presentation to the ED - no recurrence (8) Discharge planning issues: Status: Acute Assessment and plan: Not possible to return to the [facility] today Consider d/c in AM if medically indicated outpatient provider to f/u on urine Cx and opt urology f/u at [facility] VS [facility] Discussed with Dr. Corbett Subjective Subjective Patient reports: tolerating liquids well, tolerating a regular diet, voiding w/o difficulty (nephrostomy w/o hematuria), no flatus, no bowel movement, afebrile and other (no hematuria); denies no new complaints (Asking for the front door to leave, refusing treatment and wants to reverse code status- Spouse stated that she is the POA and that ahs been confused since 03/21/24 when he was found to have a renal stone and transferred to [facility], then PE developing while at [facility] - then UTI w pseudomonas wit), diarrhea, nausea, vomiting or shortness of breath Exam Narrative Exam Narrative: Ill-looking 83-year-old male, sponatneous eye-opening , still minimal verbal interactions, can follow commands, moves all 4 extremities appears in no acute distress, nonfocal S1-S2 no murmur, shallow non-labored breathing with bilateral diminished bases and mid-rightlung field - improved weak cough Abdomen is large soft and nontender, bowel sounds are present; clear urine draining from nephrostomy Objective Last Vital Signs Temp 36.4 C L 05/09/24 02:24 Pulse 91 H 05/09/24 03:54 Resp 18 05/09/24 03:49 BP 139/86 05/09/24 02:24 Pulse Ox 96 05/09/24 03:49 Laboratory Results - last 24 hr 05/08/24 05/08/24 14:48 15:10 WBC 5.77 RBC 4.61 Hgb 12.4 L Hct 39.7 L MCV 86 MCH 26.9 L MCHC 31.2 L RDW 16.1 H Plt Count 194 MPV 8.6 Immature Gran % 1.2 Neutrophils % 70.2 Lymphocytes % 17.5 Monocytes % 10.1 Eosinophils % 0.5 Basophils % 0.5 Nucleated RBC % 0.0 Absolute Neutrophils 4.05 Absolute Lymphocytes 1.01 L Absolute Monocytes 0.58 Absolute Eosinophils 0.03 Absolute Basophils 0.03 Sodium 141 Potassium 4.0 Chloride 105 Carbon Dioxide 29.0 Anion Gap 7.0 BUN 22 H Creatinine 1.0 Est GFR (CKD-EPI 2020) 74.21 Glucose 124 H Calcium 9.8 Total Bilirubin 0.5 AST 34 ALT 74 H Alkaline Phosphatase 97 Total Protein 6.9 Albumin 2.5 L MRSA (TEM-PCR) Negative Time Spent with Patient Time Spent with Patient: >50 minutes Time was spent: preparing to see the patient(eg.review tests), obtaining and/or reviewing separately otained hiistory, ordering medications,tests, procedures, referring, communicating with other health healthcare management consultant, indepentently interpreting results, counseling the patient and care coordination
--- NOTE | 2024-05-09 09:45 | RT.EKG_ITS ---
APPROVED REPORT Exam: Resting ECG Reason for Exam: QTc prolongation? Patient Location: I HR:91 bpm ECG Measurements Heart Rate 91 AXIS RI 219 P 12 QRSd 97 QRS -30 QT 354 T 6 QTc 436 Conclusion Sinus rhythm...normal P axis, V-rate 50- 99 Prolonged RI interval...RI >215, V-rate 91-120 Abnormal R-wave progression, late transition...QRS area<0 in V5/V6 Left ventricular hypertrophy...multiple voltage criteria Inferior infarct, old...Q >35mS, II III aVF
[2024-05-09] MEDS: Rivaroxaban 10 MG TABLET PO (10:20)
[2024-05-09] MEDS: Doxycycline Hyclate 100 MG CAP PO (10:20)
[2024-05-09] MEDS: guaiFENesin 600 MG TABCR 1200 MG PO ×2 (10:20→19:54)
[2024-05-09] MEDS: Metoprolol 12.5 MG TAB PO (10:21)
[2024-05-09] MEDS: QUEtiapine 25 MG TAB PO ×2 (10:21→18:07)
[2024-05-09] MEDS: Fluconazole 100 MG TAB 200 MG PO (10:21)
[2024-05-09] MEDS: Furosemide 20 MG TAB PO (10:21)
[2024-05-09] MEDS: Docusate Sodium 100 MG/10 ML CUP PO ×2 (10:21→19:54)
[2024-05-09 14:09] LABS: Abs Immature Grans 0.09 10^3/uL (0.0-0.06); Absolute Basophil Count 0.04 10^3/uL (0.0-0.2); Absolute Eosinophil Count 0.07 10^3/uL (0.0-0.7); Absolute Lymphocyte Count 1.37 10^3/uL (1.2-3.4); Absolute Monocyte Count 0.65 10^3/uL (0.1-0.8); Absolute Neutrophil Count 3.48 10^3/uL (1.2-6.7); Basophils % 0.7 %; Eosinophils % 1.2 %; HCT 37.5 % (40.0-50.0); HGB 11.5 g/dL (13.5-17.5); Immature Grans % 1.6 %; MCH 26.9 pg (27.0-33.0); MCHC 30.7 % (32.0-36.0); MCV 88 fL (80-95); MPV 8.6 fL (8.0-11.0); Monocytes % 11.4 %; Neutrophils % 61.1 %; Platelet Count 172 10^3/uL (130-400); RBC 4.27 10^6/uL (4.36-5.78); RDW 16.6 % (11.8-14.1); RDW-SD 53.1 fL
[2024-05-09 14:18] LABS: Anion Gap 4.7 mmol/L (3-11); BUN 23 mg/dL (7-18); CO2 32.3 mmol/L (21.0-32.0); CREATININE 1.2 mg/dL (0.70-1.30); Calcium 9.9 mg/dL (8.5-10.1); Chloride 107 mmol/L (98-107); Estimated GFR 59.63 (mL/min/1.73m2); Glucose 130 mg/dL (74-106); Potassium 4.2 mmol/L (3.5-5.1); Sodium 144 mmol/L (136-145)
[2024-05-09] MEDS: QUEtiapine 25 MG TAB 12.5 MG PO (18:07)
[2024-05-09] MEDS: Albuterol 2.5 MG/3 ML INH SOLN VIAL UPD (20:16)
[2024-05-10] VITALS (9 sets, daily range): BP systolic 130–148; BP diastolic 72–85; PULSE 70–100; RESP 3–24; TEMP 36.1–36.6; O2SAT 90–94
[2024-05-10] MEDS: Albuterol/Ipratropium 3 ML UPD VIAL UPD ×2 (03:55→10:56)
[2024-05-10] MEDS: Metoprolol 12.5 MG TAB PO (08:30)
[2024-05-10] MEDS: Docusate Sodium 100 MG/10 ML CUP PO (08:30)
[2024-05-10] MEDS: Furosemide 20 MG TAB PO (08:30)
[2024-05-10] MEDS: levoFLOXacin 500 MG, levoFLOXacin 250 MG 750 MG PO (08:30)
[2024-05-10] MEDS: guaiFENesin 600 MG TABCR 1200 MG PO (08:30)
[2024-05-10] MEDS: Rivaroxaban 10 MG TABLET PO (08:30)
[2024-05-10] MEDS: QUEtiapine 25 MG TAB PO (08:30)
--- NOTE | 2024-05-10 08:53 | IN_ITS ---
PT Notes Visit Reasons: Hypoxic respiratory failure, pneumonia Physical Therapy Inpatient Initial Evaluation Date: 05/10/2024 Referring Doctor: Sienna Garcia NP PT Orders: PT CONSULT: Safety Consult for D/C Precautions: Fall. Standard. Activity as tolerated. Patient Profile/Admitting Diagnosis: Raffy Mobley is an 83-year-old male resident of a SNF in [place] with a past medical history significant for dementia, recent placement of a nephrostomy tube due to recurrent kidney stones and urosepsis, hyperlipidemia, and hypertension, with a recent diagnosis of pulmonary embolism. He as admitted to the ED on 05/07/2024 due to blood in nephrostmy tube and with worsening shortness of breath, and productive cough with clear sputum. Patient is admitted for management of sepsis, PNA, acute respiratory failure, chroninc pulmonary embolism, yeast UTI, and increased confusion. PMHX: All Active Problems (Updated 05/07/24 @ 19:03 by Sienna Garcia APRN) Abnormal urinalysis (Acute) Pulmonary emboli (Chronic) Sepsis (Acute) Hematuria (Acute) Pneumonia (Acute) Acute hypoxic respiratory failure (Acute) Edema of both lower extremities (Acute) Well-managed, with exercise/activity; b/l general .. trial compression and lasix Elevated parathyroid hormone (Acute) Osteoarthritis of right knee (Acute) Steroid injection: 03/04/24; 05/19/2023Hypercalcemia (Acute) CKD (chronic kidney disease) stage 3, GFR 30-59 ml/min (Acute) Stage 3, 2022, with LALA (GFR <30!) 2' over-diures.. Hx stage 2-3 (2021) Edema of foot (Acute) Knee pain, bilateral (Acute) ? goop injection Onychomycosis (Acute) Lumbar spondylosis (Acute) Lumbar back pain (Acute) Lumbar adjacent segment disease with spondylolisthesis (Acute) half-way (current) use of anticoagulants (Acute) Osteoarthritis of left knee (Acute) Steroid injection: 03/04/24; 05/19/2023; 12/07/2020HTN (hypertension) (Chronic) Hyperlipidemia (Chronic 10/24/04) RISK 12% 11/2005; LDL goal 100 Need labs, [ ] Fall 2019 07/01/18 Medical History (Updated 05/07/24 @ 19:03 by Sienna Radha, FLOORING MACHINE OPERATOR) Leg edema Resolves with activity, qAM, 04/2022.. (Worsening, re-start furosemide, 10/2020) Renal calculus Hematuria: CT (01/09/23) vs. CT (04/27/2022):.. largest calculus in the left kidney has now migrated to the upper left ureter/UPJ level (prob responsible for hematuria)..no right obvious dilatation of the left collecting system above this level..another calculus again noted in the left left kidney lower pole calyx (no changed position)..previously present 3 mm calculus in the bladder no longer seen and has most probably passed. Gout due to renal impairment involving toe of right foot Renal insufficiency 6 becoming CKD, Stage 2-3.. 07/2021 Left knee pain Acute on chronic. Not a surgical candidate. Cane helping - may need training.. BPH w/o urinary obs/LUTS (02/15/11) nocturiaX1-2; INCR 3X 09/2012 Acute on chronic renal failure Acute exacerbation of congestive heart failure Hosp; resolved .. but with too much fluid restriction post hosp! Bakers cyst Rt, 4cm.. incidental finding on USDVT (deep venous thrombosis) New DVT, 02/2021. Xarelto started. Resolved, Eliguilhermeis D/C'd 07/2020 by Surg. C. 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 denies this stated that this was due to an interaction a year ago where having the masks on and he his hard of hearing they stated he had dementia which his and current PCP stated he does not. 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 Taylor started him on HCTZ 2005. High BP readings @ ophtho, urol . turns out to be 2' finesteride, Dr. Smallwood d/c'd .. will follow up in July 2018. 125/85 today, 06/2018, ik. Surgical History Hx of cataract removal with insertion of prosthetic lens 12/11/20 [place], [facility] Posterior subcapsular age-related cataract, right eye Nuclear sclerotic cataract of right eye S/P cholecystectomy (01/24/20) S/P ERCP Arthroscopy (02/10/84) in CT, Left knee Social History/Home Situation: SNF resident per chart review. Unable to extract reliable information at this time due to cognitive level. Equipment Owned/DME: SPC, FWW, wheelchair at SNF Subjective: Confused. Limited ability to follow instructions, needed visual and moderate to maximal cueing and repetition of instruction before execution Objective: General Observation: Telemetry monitoring in place. Nephrostomoy tube intact. Perineum red. B leg brawny edema. IV accesst hrough L UE. Mental Status: Alert and oriented as to person only. Impaired ability to follow, initiate, and complete tasks. Pain: Moaned minimally when legs were moved to edge of bed Vital Signs: Closely monitored by nursing staff ROM: Right Upper Extremity: Shoulder Flexion allows up to 100 degrees only. Shoulder abduction allows up to 80 degrees only. Elbow flexion WFL. Wrist flexion WFL. Functional opening and closing of hand WFL. Left Upper Extremity: Shoulder Flexion allows up to 100 degrees only. Shoulder abduction allows up to 80 degrees only. Elbow flexion WFL. Wrist flexion WFL. Functional opening and closing of hand WFL. Right Lower Extremity: Hip flexion lacks the last 50% of AROM due to abdominal pannus. Hip abduction WFL. Knee flexion 45 degrees to 90 degrees. Knee extension -45 degrees. Ankle dorsiflexion to neutral only. Ankle plantarflexion WFL. Left Lower Extremity: Hip flexion lacks the last 50% of AROM due to abdominal pannus. Hip abduction WFL. Knee flexion 45 degrees to 90 degrees. Knee extension -45 degrees. Ankle dorsiflexion to neutral only. Ankle plantarflexion WFL. Strength: Right Upper Extremity: Shoulder flexors 3-/5. Shoulder abductors 3-/5. Elbow flexors 3-/5. Elbow extensors 3-/5. Blast Furnace Supervisor strong. Left Upper Extremity: Shoulder flexors 3-/5. Shoulder abductors 3-/5. Elbow flexors 3-/5. Elbow extensors 3-/5. Blast Furnace Supervisor strong. Right Lower Extremity: Hip flexors 2-/5. Hip abductors 2-/5. Knee flexors 3-/5. Knee extensors 3-/5. Ankle dorsiflexors 3-/5. Ankle plantarflexors 3/5. Left Lower Extremity: Hip flexors 2-/5. Hip abductors 2-/5. Knee flexors 3-/5. Knee extensors 3-/5. Ankle dorsiflexors 3-/5. Ankle plantarflexors 3/5. Bed Mobility/Transfers: Moderate to maximal cueing provided for use of B hands as needed for support, movement sequence, AD management, and posture to reduce fall risk and minimize pain report Rolling moderate assist of 2 Supine to sit moderate assist of 2 Sit to supine moderate assist of 2 Sit to stand dependent using mechnical lift Stand to sit dependent using mechnical lift Bed to chair dependent using mechnical lift Chair to bed dependent using mechnical lift Gait: Unable to assess due to safety reasons inbility to filly follow instructions Stairs: Deferred Balance: Static Sitting: Good Dynamic Sitting: Fair Static Standing: Unable to test Dynamic Standing: Unable to test Special Tests: Mobility Limitations Standardized Measure [facility] 6 clicks Basic Mobility Inpatient Short Form: Raw Score: 12 CMS Score: 87% deficit Informed Consent/Education: Patient and were instructed in purpose of PT consult and plan of care. Agreeable to proceed with established PT POC to achieve personal goals. Assessment: Altered mental status from admitting diagnoses limited patient's ability to follow, execute, and complete tasks in today's mobility assessment. Fearful of falling-- tried at least 2x to stand patient up from edge of bed using FWW, then with STEDY lift with assistance from VALENTE Salvador and CREDIT CORRESPONDENCE CLERK allan Barajas but patient remained unable to stand up with extensive forward pushing done; a mechanical lift was then used for safety of patient and of caregivers to assist patient nto bedside recliner. In bed patient required extensive assistance of 2 to roll with pain reported associated with limb movement. Patient demonstrates functional mobility decline now requiring the use of a front wheeled walker and assistance of 1 person for all mobility ADL performance. is very supportive. Patient presents with clinical signs and symptoms consistent with current/admitting diagnoses that have resulted to mobility limitations, gait instability, generalized weakness, and overall ADL decline as demonstrated by the following impairment level findings: 1. Decreased strength to B UE/LE major muscle groups 2. Impaired sitting/standing balance 3. Impaired activity tolerance 4. Limitation of joint range of motion in B LE joints as above 5. Shortness of breath 6. Swelling in B legs 7. Confusion affecting ability to follow instructions Impairments are contributing to the following functional limitations: 1. Decline in bed mobility skills 2. Decline in transfer skills 3. Difficulty with ambulation without assistive device and physical assistance 4. Increased completion time for mobility ADL performance 5. Increased risk for falls 6. Difficulty with managing steps alone safely Patient is assessed as a 54221 moderate complexity based on the following: History: 83-year-old male with past medical history as indicated above Examination: Demonstrable impairment in strength, balance, and mobility level with underlying impairments and functional limitations as exhibited above as well as deficit score of 87% utilizing the [facility] Mobility Inpatient Short Form Presentation: Evolving Decision Makin moderate complexity Goals: Goals X1 week 1. Supine-Sit stand by assist 2. Sit-Supine stand by assist 3. Sit-Stand minimal assist with FWW 4. Stand-Sit minimal assist with FWW 5. Bed-Chair minimal assist with FWW 6. Chair-Bed minimal assist with FWW 7. Fair static and dynamic standing balance/tolerance Plan of Care/Treatment Plan: 1-2x/day, 7 days/week x 1 week. Plan of care has been reviewed with the BOOK PACKER providing the service under Physical Therapy direction. Initiate Physical Therapy intervention for pain management as needed, strengthening, bed mobility, transfers, gait, stairs, balance training, and use of assistive device. DISCHARGE RECOMMENDATIONS: [] Home with no services [] [] Home with services [] [] Home with outpatient PT [] [X] SNF for continued rehabilitation. Return to SNF whne medically cleared for subacute rehab as needed. [] [facility] [] [] SNF versus LTC based on ability to participate and progress [] TREATMENT CODE/TIME: 78904 x 20 minutes for 1 unit, 13232 x 26 minutes for 2 units 8:53-9:39). Thank you for the opportunity to participate in the care of this patient. Julieta Farley PT, DPT, CLT [facility] [place], [place]
--- NOTE | 2024-05-10 09:02 | NUR.NOTE ---
Pt is a/o x 1 during assessment. Pt has confusion r/t UTI dx. Pt was combative
[2024-05-10] MEDS: Fluconazole 100 MG TAB 200 MG PO (10:37)
[2024-05-10] MEDS: Doxycycline Hyclate 100 MG CAP PO (10:37)
--- NOTE | 2024-05-10 11:04 | DSE_ITS ---
Date of service: 05/10/24 Time of Service: 11:04 DS: Diagnosis Discharge Diagnosis (1) Sepsis: Status: Acute (2) Acute hypoxic respiratory failure: Status: Acute (3) Pneumonia: Status: Acute (4) Yeast UTI: Status: Acute (5) Confusion associated with infection: Status: Acute (6) Pulmonary emboli: Status: Chronic (7) Hematuria: Status: Acute Discharge Plan Disposition Patient Disposition: Snf Facility(SNF) Condition: Improving Discharge Details Reason For Visit: Hypoxic respiratory failure, pneumonia Admit Date/Time: 05/07/24 14:09 Admit Provider: Rudolph Boyd Attending Provider: Rudolph Boyd Primary Care Provider: Edna Muniz Hospital Course Hospital Course: This is an 83-year-old male patient who is at the [facility] with a past medical history for chronic kidney disease hypertension AAA, hyperlipidemia, PE fully anticoagulated, history of renal stenting, nephrostomy, nephrolithiasis, urosepsis who presented to the emergency department with hematuria seen on his nephrostomy tube with increased work of breathing. His workup in the emergency department was concerning for a right lower lobe middle lobe infiltrate. He was admitted to the medical surgical unit for treatment of sepsis presumed to be respiratory. Blood cultures obtained and remained negative to date. His urine also positive for fungal growth and his case was discussed with urology and antifungal treatment was added. They did request ID and sensitivities. He was started on fluconazole. Hemodynamically he remained stable. He had no oxygen requirements. He has been eating and drinking and returning to his baseline. He is stable for discharge to home he should continue 4 more days of levofloxacin to treat his pneumonia which will complete a 7-day course. Again he has no oxygen requirements still with a moist congested cough and continue guaifenesin twice daily with pulmonary toileting including incentive spirometer and Acapella. He should also continue on fluconazole for 2 weeks or adjust based on cultures. He should follow-up outpatient with urology and have routine follow-up at the skilled nursing post hospitalization. There are no other changes to his medications. Discharge discussed with Dr. Corbett [place] Meds and New Rx's Prescriptions: New albuterol sulfate 2.5 mg /3 mL (0.083 %) Solution For Nebulization 2.5 mg UPD Q2H PRN PRNQty: 30 0RF levofloxacin 750 mg Tablet 750 mg PO QAM Qty: 5 0RF guaifenesin [Mucus Relief ER] 600 mg Tablet Extended Release 12hr 1,200 mg PO BID Qty: 0 0RF fluconazole 200 mg tablet 200 mg PO DAILY Qty: 12 0RF Continued furosemide [Lasix] 20 mg tablet 20 mg PO BID Qty: 180 3RF Rx Instructions: 10/11/2022: Per IK: May have a one additional dose of Furosemide if SOB.(Double dose) ketoconazole 2 % cream 1 applic topical DAILY 90 Days Qty: 60 1RF Rx Instructions: Apply to toenails once daily polyvinyl alcohol [Artificial Tears (polyvin alc)] 15 ML drops 1 drp Ophthalmic PRN PRN acetaminophen [Tylenol Arthritis Pain] 650 mg tablet extended release 650 mg PO Q12H PRN (Reason: pain) Qty: 60 2RF metoprolol tartrate 25 mg tablet 12.5 mg PO DAILY Qty: 45 3RF Patient Comments: Per pt. always takes this around [id number] 03/15/24-JW spironolactone 25 mg tablet 25 mg PO DAILY Qty: 90 3RF Rx Instructions: Continue with afternoon lasix Xarelto 10 mg tablet See Rx Instructions .ROUTE .COMPLEX Qty: 90 3RF Dose Instruction: TAKE 1 TABLET BY MOUTH EVERY DAY WITH A MEAL Rx Instructions: TAKE 1 TABLET BY MOUTH EVERY DAY WITH A MEAL Discharge Instructions Instructions: Community-acquired pneumonia in adults, Urinary Tract Infection, Adult ED Additional Instructions: continue antibiotics and antifungal as directed. push fluids to stay well hydrated continue incentive spirometer and flutter valve exercises to help mobilize secretions see urology outpatient for follow up Referrals: Edna Muniz APRN [Primary Care Provider] - Activity:: Activity as Tolerated Equipment/Supplies:: No Equipment Needed Diet:: As Tolerated Discharge Orders Discharge Orders: Discharge Order (Routine); Ordered 05/10/24 Ordered By: Erna Navas DS: Summary Time Spent with Patient providing and/or coordinating discharge services: Greater than 30 minutes Status at Discharge Functional status at discharge: wheelchair bound Overall status at discharge: patient is progressing back to baseline Mental Status: mental status grossly normal Speech and Movement: speech and movement normal Mood: congruent mood Affect: normal affect Quality:SDOH Health Related Social Needs: Health related social needs problems with daily activi ties (Z73.9) Exam Const General: comfortable, no acute distress and ill appearing chronically Nutritional Appearance: obese Orientation: alert, awake and oriented x3 HENMT Head: normal to inspection, normocephalic and atraumatic Mouth: oral mucosae normal Chest Chest: normal inspection of the chest Resp Effort & Inspection: normal respiratory effort Auscultation: diminished lung sounds Cardio Rate: regular rate GI Inspection: distended and obesity Palpation: firm and nontender Other: Nephrostomy tube intact and draining well, clear yellow Skin Lesions: no lesions Neuro General: patient alert, patient awake and patient oriented x3 Psych Mental Status: mental status grossly normal Speech and Movement: speech and movement normal Mood: congruent mood Affect: normal affect DS: Data Vitals/I&O Vitals and I&O: Vital Signs Temperature 36.1 C L 05/10/24 08:01 Temperature Source Temporal Artery Scan 05/09/24 23:06 Pulse 96 H 05/10/24 10:56 Pulse Rhythm Regular 05/07/24 16:33 Pulse 107 H 05/07/24 15:01 Respiratory Rate 16 05/10/24 10:56 Respiratory Effort Labored, Accessory Muscle Use, Incrsd Work of Breathing 05/07/24 16:33 Respiratory Depth Shallow 05/07/24 16:33 Respiratory Pattern Normal 05/07/24 16:33 Blood Pressure 148/85 H 05/10/24 08:01 Blood Pressure Mean 100 05/07/24 15:01 Pulse Oximetry 94 05/10/24 10:56 Oxygen Delivery Method Room Air 05/10/24 10:56 Oxygen Flow Rate 0 05/10/24 10:56 Pain Level 0 05/10/24 09:02 Comment Rn notified. 05/10/24 08:01 Intake & Output 05/09/24 05/09/24 05/10/24 11:59 23:59 11:59 Intake Total 200 / 540 340 / 540 120 / 120 Output Total 600 / 1350 750 / 1350 100 / 100 Balance -400 / -810 -410 / -810 20 / 20 Intake: Oral 200 / 540 340 / 540 120 / 120 Output: Urine 600 / 1350 750 / 1350 100 / 100 Other: Urine Color Yellow Yellow Straw Urine Appearance Cloudy Cloudy Cloudy Sediment Urine Odor Normal Comment patient incontinent of urine in breif. Data Completed and Pending Labs on day of discharge: Labs from last 24 hours 05/10/24 05/09/24 05/07/24 05:35 14:00 09:40 WBC Pending 5.70 RBC Pending 4.27 L Hgb Pending 11.5 L Hct Pending 37.5 L MCV Pending 88 MCH Pending 26.9 L MCHC Pending 30.7 L RDW Pending 16.6 H Plt Count Pending 172 MPV Pending 8.6 Immature Gran % Pending 1.6 Neutrophils % Pending 61.1 Lymphocytes % Pending 24.0 Monocytes % Pending 11.4 Eosinophils % Pending 1.2 Basophils % Pending 0.7 Nucleated RBC % 0.0 Absolute Neutrophils Pending 3.48 Absolute Lymphocytes Pending 1.37 Absolute Monocytes Pending 0.65 Absolute Eosinophils Pending 0.07 Absolute Basophils Pending 0.04 Sodium Pending 144 Potassium Pending 4.2 Chloride Pending 107 Carbon Dioxide Pending 32.3 H Anion Gap Pending 4.7 BUN Pending 23 H Creatinine Pending 1.2 Est GFR (CKD-EPI 2020) Pending 59.63 Glucose Pending 130 H Calcium Pending 9.9 Fungal Specimen Source Pending Yeast Id Source Pending Yeast Organism Id Pending Yeast Susceptibility Pending Yeast Suscep Rpt Status Pending Fungus Report Status Pending 05/10/24 06:35 Urine - Not Specified Urine Culture - Pending Preliminary micro results at discharge 05/10/24 06:35 Urine Culture - Pending Urine - Not Specified 05/07/24 10:14 Blood Culture - Preliminary Blood NO GROWTH 48 HOURS 05/07/24 09:30 Blood Culture - Preliminary Blood NO GROWTH 48 HOURS PFSH All Active Problems (Updated 05/09/24 @ 12:26 by Sienna Garcia APRN) Discharge planning issues (Acute) Yeast UTI (Acute) Confusion associated with infection (Acute) Confusion (Acute) Abnormal urinalysis (Acute) Pulmonary emboli (Chronic) Sepsis (Acute) Hematuria (Acute) Pneumonia (Acute) Acute hypoxic respiratory failure (Acute) Edema of both lower extremities (Acute) Well-managed, with exercise/activity; b/l general .. trial compression and lasix Elevated parathyroid hormone (Acute) Osteoarthritis of right knee (Acute) Steroid injection: 03/04/24; 05/19/2023 Hypercalcemia (Acute) CKD (chronic kidney disease) stage 3, GFR 30-59 ml/min (Acute) Stage 3, 2022, with LALA (GFR <30!) 2' over-diures.. Hx stage 2-3 (2021) Edema of foot (Acute) Knee pain, bilateral (Acute) ? goop injection Onychomycosis (Acute) Lumbar spondylosis (Acute) Lumbar back pain (Acute) Lumbar adjacent segment disease with spondylolisthesis (Acute) halfway (current) use of anticoagulants (Acute) Osteoarthritis of left knee (Acute) Steroid injection: 03/04/24; 05/19/2023; 12/07/2020 HTN (hypertension) (Chronic) Hyperlipidemia (Chronic 10/24/04) RISK 12% 11/2005; LDL goal 100 Need labs, [ ] Fall 201807/01/18 Medical History (Updated 05/09/24 @ 12:26 by Sienna Garcia APRN) Leg edema Resolves with activity, qAM, 04/2022.. (Worsening, re-start furosemide, 10/2020) Renal calculus Hematuria: CT (01/09/23) vs. CT (04/27/2022):.. largest calculus in the left kidney has now migrated to the upper left ureter/UPJ level (prob responsible for hematuria)..no obvious dilatation of the left collecting system above this level..another calculus again noted in the left left kidney lower pole calyx (no changed position)..previously present 3 mm calculus in the bladder no longer seen and has most probably passed. 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 07/2021 Left knee pain Acute on chronic. Not a surgical candidate. Cane helping - may need training.. BPH w/o urinary obs/LUTS (02/15/11) nocturiaX1-2; INCR 3X 09/2012 Acute on chronic renal failure Acute exacerbation of congestive heart failure Hosp; resolved .. but with too much fluid restriction post hosp! Bakers cyst Rt, 4cm.. incidental finding on US DVT (deep venous thrombosis) New DVT, 02/2021. Xarelto started. Resolved, Eliquis D/C'd 07/2020 by Surg. C. 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 denies this stated that this was due to an interaction a year ago where having the masks on and he his hard of hearing they stated he had dementia which his and current PCP stated he does not. 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 Taylor started him on HCTZ 2005. High BP readings @ ophtho, urol . turns out to be 2' finesteride, Dr. Smallwood d/c'd .. will follow up in July 2018. 125/85 today, 06/2018, ik. Surgical History Hx of cataract removal with insertion of prosthetic lens 12/11/20 [place], [facility] Posterior subcapsular age-related cataract, right eye Nuclear sclerotic cataract of right eye S/P cholecystectomy (01/24/20) S/P ERCP Arthroscopy (02/10/84) in [place], Left knee Family History Son Age: 60 No problems noted. 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
--- NOTE | 2024-05-10 11:28 | PT.INTREAT ---
PT Notes Visit Reasons: Hypoxic respiratory failure, pneumonia Physical Therapy Inpatient Treatment Note Date: 05/10/2024 Precautions: Fall. Standard. Activity as tolerated. Subjective: Denita Salvador needed help as patient wanted to go back to bed due to increasing discomfort. Patient was assisted from bed to bedside recliner earlier this morning with the help of VALENTE Salvador and VALENTE Barajas. Patient remains confused but recognized . Objective: General Observation: Telemetry monitoring in place. Nephrostomoy tube intact. Perineum red. B leg brawny edema. IV accesst hrough L UE. Mental Status: Alert and oriented as to person only. Impaired ability to follow, initiate, and complete tasks. Isaias present throughout for this session. Pain: Moaned minimally when legs were moved to edge of bed Vital Signs: Closely monitored by nursing staff Bed Mobility/Transfers: Moderate to maximal cueing provided for use of B hands as needed for support, movement sequence, AD management, and posture to reduce fall risk and minimize pain report Rolling moderate assist of 2 Supine to sit moderate assist of 2 Sit to supine moderate assist of 2 Sit to stand dependent using mechnical lift Stand to sit dependent using mechnical lift Bed to chair dependent using mechnical lift Chair to bed dependent using mechnical lift Gait: Unable to assess due to safety reasons inbility to filly follow instructions Stairs: Deferred Balance: Static Sitting: Good Dynamic Sitting: Fair Static Standing: Unable to test Dynamic Standing: Unable to test Assessment: Altered mental status from admitting diagnoses limited patient's ability to follow, execute, and complete tasks in today's mobility assessment. Fearful of falling-- tried at least 2x to stand patient up from edge of bed using FWW, then with STEDY lift with assistance from VALENTE Salvador and VALENTE Barajas but patient remained unable to stand up with extensive forward pushing done; a mechanical lift was then used for safety of patient and of caregivers to assist patient nto bedside recliner. In bed patient required extensive assistance of 2 to roll with pain reported associated with limb movement. Patient demonstrates functional mobility decline now requiring the use of a front wheeled walker and assistance of 1 person for all mobility ADL performance. is very supportive. Patient presents with clinical signs and symptoms consistent with current/admitting diagnoses that have resulted to mobility limitations, gait instability, generalized weakness, and overall ADL decline as demonstrated by the following impairment level findings: 1. Decreased strength to B UE/LE major muscle groups 2. Impaired sitting/standing balance 3. Impaired activity tolerance 4. Limitation of joint range of motion in B LE joints as above 5. Shortness of breath 6. Swelling in B legs 7. Confusion affecting ability to follow instructions Impairments are contributing to the following functional limitations: 1. Decline in bed mobility skills 2. Decline in transfer skills 3. Difficulty with ambulation without assistive device and physical assistance 4. Increased completion time for mobility ADL performance 5. Increased risk for falls 6. Difficulty with managing steps alone safely Plan of Care/Treatment Plan: 1-2x/day, 7 days/week x 1 week. Plan of care has been reviewed with the CHILD AND FAMILY THERAPIST providing the service under Physical Therapy direction. Initiate Physical Therapy intervention for pain management as needed, strengthening, bed mobility, transfers, gait, stairs, balance training, and use of assistive device. DISCHARGE RECOMMENDATIONS: [] Home with no services [] [] Home with services [] [] Home with outpatient PT [] [X] SNF for continued rehabilitation. Return to SNF when medically cleared for subacute rehab as needed. [] Assistant Signal Maintainer Care [] [] SNF versus LTC based on ability to participate and progress [] TREATMENT CODE/TIME: Date 14381 x 16 minutes for 1 unit 11:28-11:44).
--- NOTE | 2024-05-10 11:36 | W.NUTRFU ---
Date of service: 05/10/24 Time of Service: 09:30 Nutrition Note NOTE: Visited with Raffy today - being treated for UTI and discharge anticipated later today. Raffy with limited responses - not too talkative. He does share that he checks glucose at home and has no concerns about diabetes mgt He has been eating fairly this admission - has some food quality concerns I told him I would remedy (cold eggs this morning and small portions). No agressive nutrition intervention planned at this time. PT declines education re: diabetes Will continue to monitor labs, weight, intake Time Spent in Nutritional Counseling and Treatment: 10 min
--- NOTE | 2024-05-10 12:16 | PDOC.STREC ---
Date of service: 05/10/24 Time of Service: 12:16 Speech Therapy Recommendations Report ST Recommendations: Consult only. Pt alseep in bed when ORTHOPEDICALLY IMPAIRED TEACHER entered the room. Pt's partner was present. ORTHOPEDICALLY IMPAIRED TEACHER discussed pt's swallowing/eating with pt's partner. She denies any current or past difficulty with eating. She says that pt eats a regular diet with thin liquids. Intermittent challenges with meds, but overall no concern. ORTHOPEDICALLY IMPAIRED TEACHER discussed recommendations for taking meds including taking medications with applesauce/pudding as needed. Pt's partner says that pt has his own teeth (upper and lower). Pt's woke up pt when his lunch tray was delivered. She assisted with his set up of the tray, but he self-fed for the meal. Pt managed mechanical soft, puree, and thin liquids without overt s/s aspiration today. ORTHOPEDICALLY IMPAIRED TEACHER inquired about pt's management of regular consistencies. Pt's partner denies concerns with regular consistencies, states he eats things like cookies without difficulty. She states she cuts up his food into bite size pieces and he is able to manage. ORTHOPEDICALLY IMPAIRED TEACHER briefly discussed possible s/s aspiration for partner to be aware of. She is encouraged to request swallow eval at next placement if new concerns arise. No evaluation today.
--- NOTE | 2024-05-10 15:37 | PDOC.CMDIS ---
Date of service: 05/10/24 Time of Service: 15:38 LACE Index Scoring Tool Questions: Length of Stay (in days): 3 Was the patient admitted via the E.D.?: Yes Comorbidities: Congestive Heart Failure and Liver or Renal Disease E.D. Visits: 3 Answers: Total Score: 14 Risk of Readmission: High Risk Care Management Discharge Plan Reason for Hospitalization: Pneumonia Discharge Plan: Raffy will be transferred back to [facility]. He will follow up with the facility provider and plan of care and transport via RCT. Patient/Family Education Needs: Review discharge instructions, limitations, follow up plan and discuss Ask Me Three Services Needed at Discharge: Correction Facility SDOH Health Related Social Needs: Health related social needs problems with daily activities (Z73.9)
== END 2024-05-10 13:13 | disposition skilled nursing facility (03) | DRG 871 ==
LOC: ER 14:49 → MS 15:24
PROVIDERS: Family Medicine; Nurse Practitioner Acute Care; Admitting Provider Family Medicine; Emergency Provider Physician Assistant; PCP Nurse Practitioner Family; Responsible Provider Nurse Practitioner Acute Care; Visit Provider Family Medicine
DX: A41.9 Sepsis, unspecified organism (principal); J18.9 Pneumonia, unspecified organism; J96.01 Acute respiratory failure with hypoxia; B37.49 Other urogenital candidiasis; I13.0 Hypertensive heart and chronic kidney disease with heart failure and stage 1 through stage 4 chronic kidney disease, or unspecified chronic kidney disease; F05 Delirium due to known physiological condition; Z86.711 Personal history of pulmonary embolism; R31.9 Hematuria, unspecified; I50.9 Heart failure, unspecified; Z79.01 Long term (current) use of anticoagulants; E78.5 Hyperlipidemia, unspecified; I71.40 Abdominal aortic aneurysm, without rupture, unspecified; N18.30 Chronic kidney disease, stage 3 unspecified; M17.0 Bilateral primary osteoarthritis of knee; N40.0 Benign prostatic hyperplasia without lower urinary tract symptoms; Z93.6 Other artificial openings of urinary tract status
CPT/HCPCS: 00123; 36415; 71275; 74177; 80048; 80053; 82805; 84145; 87040; 87186; 87637; 87641; 93005; 94640; 96361; 96365; 96367; 96375; 97110; 97162; 99291; 81003; 81015; 83605; 83880; 84484; 85025; 87086; 87106; 93010; 94667; 94760; 99223; 99233; 99239; J0692; J0696; J1450; J1630; J2919; J3486; J3490; J7613; J7620

== ENCOUNTER 2024-05-19 17:42 | Outpatient (REF) | payer MEDICARE, SELFPAY ==
[2024-05-19 18:28] LABS: Abs Immature Grans 0.26 10^3/uL (0.0-0.06); Absolute Basophil Count 0.07 10^3/uL (0.0-0.2); Absolute Eosinophil Count 0.28 10^3/uL (0.0-0.7); Absolute Monocyte Count 0.89 10^3/uL (0.1-0.8); Basophils % 0.8 %; Eosinophils % 3.2 %; HGB 12.4 g/dL (13.5-17.5); Lymphocytes % 18.4 %; MCH 26.6 pg (27.0-33.0); MCHC 30.2 % (32.0-36.0); MCV 88 fL (80-95); Monocytes % 10.2 %; Neutrophils % 64.4 %; Platelet Count 178 10^3/uL (130-400); RBC 4.67 10^6/uL (4.36-5.78); RDW 17.2 % (11.8-14.1); RDW-SD 54.4 fL
[2024-05-19 19:05] LABS: ALT 36 U/L (16-63); AST 28 U/L (15-37); Albumin 2.7 g/dL (3.4-5.0); Alkaline Phosphatase 86 U/L (46-116); BUN 14 mg/dL (7-18); Bilirubin, Total 0.5 mg/dL (0.2-1.0); CREATININE 1.1 mg/dL (0.70-1.30); Chloride 105 mmol/L (98-107); Estimated GFR 66.19 (mL/min/1.73m2); Glucose 121 mg/dL (74-106); Magnesium 1.9 mg/dL; Potassium 3.9 mmol/L (3.5-5.1); Sodium 143 mmol/L (136-145); Total Protein 5.9 g/dL (6.4-8.2)
== END 2024-05-19 17:43 | disposition home or self-care (01) ==
LOC: LBN 17:42
PROVIDERS: PCP Nurse Practitioner Family; Visit Provider Nurse Practitioner Gerontology
DX: N18.31 Chronic kidney disease, stage 3a (principal); E83.42 Hypomagnesemia; J18.9 Pneumonia, unspecified organism
CPT/HCPCS: 80053; 83735; 85025

== ENCOUNTER 2024-07-19 19:29 | Outpatient (REF) | payer MEDICARE, SELFPAY ==
[2024-07-19 19:51] LABS: Abs Immature Grans 0.12 10^3/uL (0.0-0.06); Absolute Basophil Count 0.05 10^3/uL (0.0-0.2); Absolute Eosinophil Count 0.36 10^3/uL (0.0-0.7); Absolute Lymphocyte Count 1.67 10^3/uL (1.2-3.4); Absolute Neutrophil Count 5.83 10^3/uL (1.2-6.7); Basophils % 0.5 %; Eosinophils % 3.9 %; HCT 41.7 % (40.0-50.0); HGB 12.5 g/dL (13.5-17.5); Immature Grans % 1.3 %; Lymphocytes % 18.3 %; MCV 87 fL (80-95); MPV 9.3 fL (8.0-11.0); Platelet Count 235 10^3/uL (130-400); RDW 16.6 % (11.8-14.1); RDW-SD 53.4 fL; WBC 9.13 10^3/uL (4.4-10.8)
[2024-07-19 20:28] LABS: ALT 14 U/L (16-63); AST 11 U/L (15-37); Albumin 2.8 g/dL (3.4-5.0); Alkaline Phosphatase 62 U/L (46-116); Anion Gap 5.4 mmol/L (3-11); BUN 26 mg/dL (7-18); Bilirubin, Total 0.5 mg/dL (0.2-1.0); CO2 30.6 mmol/L (21.0-32.0); CREATININE 1.2 mg/dL (0.70-1.30); Calcium 10.3 mg/dL (8.5-10.1); Chloride 103 mmol/L (98-107); Estimated GFR 59.63 (mL/min/1.73m2); Glucose 123 mg/dL (74-106); Sodium 139 mmol/L (136-145); Total Protein 6.4 g/dL (6.4-8.2); Vitamin D 25 Total 25 ng/mL (30-100)
[2024-07-20 19:44] LABS: Parathyroid Hormone,Intact 189 pg/mL (19-88)
== END 2024-07-19 19:30 | disposition home or self-care (01) ==
LOC: LBN 19:29
PROVIDERS: PCP Nurse Practitioner Family; Visit Provider Nurse Practitioner Gerontology
DX: E55.9 Vitamin D deficiency, unspecified (principal); E87.8 Other disorders of electrolyte and fluid balance, not elsewhere classified; D63.1 Anemia in chronic kidney disease; E21.0 Primary hyperparathyroidism
CPT/HCPCS: 80053; 82306; 83970; 85025

== ENCOUNTER 2024-07-23 17:43 | Outpatient (REF) | payer MEDICARE, SELFPAY | END 2024-07-23 17:44 | disposition home or self-care (01) | LOC: LBN 17:43 | PROVIDERS: PCP Nurse Practitioner Family; Visit Provider Nurse Practitioner Gerontology | DX: Z48.00 Encounter for change or removal of nonsurgical wound dressing (principal) | CPT/HCPCS: 87077; 87070; 87205 ==

== ENCOUNTER 2024-08-12 17:49 | Outpatient (REF) | payer MEDICARE, SELFPAY ==
[2024-08-12 19:47] LABS: Abs Immature Grans 0.05 10^3/uL (0.0-0.06); HCT 45.6 % (40.0-50.0); HGB 13.9 g/dL (13.5-17.5); Immature Grans % 0.6 %; MCH 26.1 pg (27.0-33.0); MCHC 30.5 % (32.0-36.0); MCV 86 fL (80-95); MPV 10.3 fL (8.0-11.0); Platelet Count 225 10^3/uL (130-400); RBC 5.32 10^6/uL (4.36-5.78); RDW 16.4 % (11.8-14.1); RDW-SD 51.0 fL; WBC 7.83 10^3/uL (4.4-10.8)
[2024-08-12 20:06] LABS: ALT 16 U/L (16-63); AST 14 U/L (15-37); Albumin 3.2 g/dL (3.4-5.0); Alkaline Phosphatase 58 U/L (46-116); Anion Gap 5.1 mmol/L (3-11); BUN 21 mg/dL (7-18); Bilirubin, Total 0.6 mg/dL (0.2-1.0); CO2 32.9 mmol/L (21.0-32.0); Calcium 10.4 mg/dL (8.5-10.1); Chloride 103 mmol/L (98-107); Estimated GFR 84.22 (mL/min/1.73m2); Glucose 102 mg/dL (74-106); NT-proBNP 968 pg/mL (<300); Potassium 4.5 mmol/L (3.5-5.1); Sodium 141 mmol/L (136-145); Total Protein 6.7 g/dL (6.4-8.2)
== END 2024-08-12 17:50 | disposition home or self-care (01) ==
LOC: LBN 17:49
PROVIDERS: PCP Nurse Practitioner Family; Visit Provider Nurse Practitioner Gerontology
DX: I50.22 Chronic systolic (congestive) heart failure (principal); E87.8 Other disorders of electrolyte and fluid balance, not elsewhere classified; D63.1 Anemia in chronic kidney disease
CPT/HCPCS: 80053; 83880; 85025

== ENCOUNTER 2024-08-31 16:56 | Outpatient (REF) | payer MEDICARE, SELFPAY ==
[2024-08-31 16:04] LABS: Glucose Negative (Negative)
[2024-08-31 16:35] LABS: RBC >50 HPF (0-2)
== END 2024-08-31 16:57 | disposition home or self-care (01) ==
LOC: LBN 16:56
PROVIDERS: PCP Nurse Practitioner Family; Visit Provider Nurse Practitioner Gerontology
DX: N39.0 Urinary tract infection, site not specified (principal)
CPT/HCPCS: 81003; 81015; 87086

== ENCOUNTER 2024-09-06 18:24 | Outpatient (REF) | payer MEDICARE, SELFPAY ==
[2024-09-06 19:05] LABS: Glucose Negative (Negative)
[2024-09-06 19:06] LABS: RBC 20-50 HPF (0-2); WBC >50 HPF (0-5)
== END 2024-09-06 18:25 | disposition home or self-care (01) ==
LOC: LBN 18:24
PROVIDERS: PCP Nurse Practitioner Family; Visit Provider Nurse Practitioner Gerontology
DX: N39.0 Urinary tract infection, site not specified (principal)
CPT/HCPCS: 81003; 81015; 87086

== ENCOUNTER 2024-09-18 15:29 | Inpatient (IN) | payer MEDICARE, MEDICAID, SELFPAY ==
[2024-09-18] VITALS (46 sets, daily range): BP systolic 132–196; BP diastolic 65–149; PULSE 46–99; RESP 15–30; TEMP 36.9–37.1; O2SAT 83–97
--- NOTE | 2024-09-18 15:15 | RT.EKG_ITS ---
APPROVED REPORT Exam: Resting ECG Reason for Exam: AMS Patient Location: E HR:86 bpm ECG Measurements Heart Rate 86 AXIS WA [id number] P [id number] QRSd 90 QRS -24 QT 344 T 19 QTc 413 Conclusion Atrial fibrillation...V-rate 85- 88, irreg A-activity Inferior infarct, old...Q >35mS, II III aVF No Occlusion W[place]
--- NOTE | 2024-09-18 15:32 | W.ED.GENAD ---
Discharge Plan Disposition Patient Disposition: Admit to [facility] Discharge Details Clinical Impression: Urinary tract infection associated with nephrostomy catheter, Acute alteration in mental status, Stenosis of right vertebral artery Primary Care Provider: Edna Muniz ED Provider: Andra Carvajal Home Meds and New Rx's Prescriptions: No Action cholecalciferol (vitamin D3) 1,250 mcg (50,000 unit) capsule 1,250 mcg PO QWEEK omeprazole 20 mg capsule,delayed release(DR/EC) 40 mg PO DAILY polyethylene glycol 3350 [Miralax] 17 gram/dose powder 17 g PO BID acetaminophen 500 mg capsule 1,000 mg PO BID calcitonin (salmon) 200 unit/actuation spray,non-aerosol 1 spray intranasal .QOD Rx Instructions: Administer in right nostril every other day and 1 spray in left nostril opposite days docusate sodium 100 mg capsule 100 mg PO DAILY furosemide [Lasix] 20 mg tablet 20 mg PO BID metoprolol tartrate 25 mg tablet 12.5 mg PO BID Patient Comments: Per pt. always takes this around [id number] 03/15/24-JW Xarelto 10 mg tablet 20 mg PO QPM HPI General Date/Time Provider Initiated Documentation: 09/18/24 16:42. HPI Narrative: Raffy is an 83-year-old male who presents to the emergency department via EMS from the [facility] for evaluation of sudden onset of altered mental status. As patient is unable to provide history, I was able to obtain history from and RY Negrete. Adali was acting normally all morning, however was fatigued. At 1345 he was noted by nurse to be confused/disoriented with eyes appearing glassy. Vital signs were normal, although there was concern that his O2 saturation might be low at 89%, however she was not confident of a good pleth. Yesterday he had his long-term percutaneous ureteral tube changed to a percutaneous nephrostomy tube which was clipped, allowing for him to drain urine into his bladder. He has urinated twice today into his brief, urine has appeared normal. No recent URI symptoms. At baseline patient uses wheelchair, no history of stroke, is usually alert and oriented, conversational and cooperative. says he has had similar symptoms when he has been dehydrated, he has been noted to have decreased fluid intake yesterday, today improved. Raffy arrives to the emergency department confused and slow to follow commands, unable to perform full NIHSS based on altered mental status. He is unable to endorse any particular symptoms, however says that he feels unwell. Past medical history significant for AAA, HTN, HLD, CKD stage III, h/o renal calculus, CHF, gallstone pancreatitis, PE. Surgical history significant for renal stenting, cataract removal, cholecystectomy in 2019, ERCP. He is anticoagulated on Xarelto Related Data Home Medications ?Medication ?Instructions ?Recorded ?Confirmed cholecalciferol (vitamin D3) 1,250 1,250 mcg PO QWEEK 06/15/24 09/18/24 mcg (50,000 unit) capsule acetaminophen 500 mg capsule 1,000 mg PO BID 09/18/24 09/18/24 calcitonin (salmon) 200 1 spray intranasal .QOD 09/18/24 09/18/24 unit/actuation nasal spray docusate sodium 100 mg capsule 100 mg PO DAILY 09/18/24 09/18/24 furosemide 20 mg tablet (Lasix) 20 mg PO BID 09/18/24 09/18/24 metoprolol tartrate 25 mg tablet 12.5 mg PO BID 09/18/24 09/18/24 omeprazole 20 mg capsule,delayed 40 mg PO DAILY 09/18/24 09/18/24 release polyethylene glycol 3350 17 17 g PO BID 09/18/24 09/18/24 gram/dose oral powder (Miralax) rivaroxaban 10 mg tablet (Xarelto) 20 mg PO QPM 09/18/24 09/18/24 Allergies Allergy/AdvReac Type Severity Reaction Status Date / Time amlodipine AdvReac Mild nightmares/restless Verified 09/18/24 15:16 sleep hydrochlorothiazide AdvReac Mild possible Verified 09/18/24 15:16 Erectile dysfunction finasteride AdvReac Hypertensio Verified 09/18/24 15:16 n General THALIA: 3 Exam Const General: cooperative and frail appearing Nutritional Appearance: obese Orientation: alert, oriented to person and confused HENHI Head: normal to inspection and atraumatic Ears: hearing grossly normal bilaterally General nose exam: external nose normal Face and sinus: normal facial exam and dry mucous membranes (slightly tacky) Neck Neck: normal visual inspection Resp Effort & Inspection: normal respiratory effort, no cough and no respiratory distress Auscultation: crackles (faint, bilat bases) Cardio Rate: regular rate Rhythm: regular rhythm Heart Sounds: no murmurs Pulses: radial pulses present GI Inspection: normal to inspection, obesity and other (nephrostomy tube L flank) Palpation: soft, not firm, no guarding, not rigid and nontender Skin General skin exam: no rashes or lesions noted Neuro General: patient alert, moves all extremities, no focal motor deficits and patient confused Cranial Nerves: PERRL, EOM intact bilaterally and facial strength normal Motor: muscle tone normal throughout and strength 5/5 throughout (bilat upper extremities, weakness noted to lower extremities bilat) Sensory Exam: no sensory deficits noted Medical Decision Making Initial Assessment: Confused and disoriented, last known well 1345. Usually alert and oriented, cooperative. No focal neurodeficits, unable to complete NIHSS as patient is unable to cooperate due to altered mental status. Code status full code Differential Diagnosis includes but is not limited to: CVA, ACS, cardiac arrhythmia, occult infection such as pneumonia or UTI or postprocedural infection, dehydration, electrolyte imbalance, metabolic encephalopathy, thyroid dysfunction, viral illness such as COVID-19. Patient is afebrile, no tachycardia, no tachypnea noted. Patient does not meet SIRS criteria. ED Course: - 1536 hours: Orders placed. - Oral temperature: 98.9?F. - COVID and flu swabs, EKG, labs obtained. - Code status confirmed. - 500 cc normal saline given for gentle rehydration I independently interpreted the following tests: EKG shows a normal sinus rhythm, rate 86, normal QTc, no changes consistent with acute ischemia, much artifact. No significant change from previous on 05/09/2024. CMP notable for elevated creatinine to BUN ratio, 1.4 : 26 (creatinine increased from 0.9 on 08/12/2024). Initial troponin 11. BNP very elevated at 2151. CBC, VBG, lactate, magnesium, TSH, PT/INR, PTT, COVID/flu/RSV all unremarkable. UA was able to be obtained via straight cath, was noted to be grossly bloody and deep yellow; microscopy shows>50 WBCs, consistent with UTI. CTA unremarkable, no acute changes noted; atherosclerosis calcifications and marked stenosis/near complete occlusion of multiple arteries noted. CT chest/abdomen/pelvis notable for new mild dilatation of the left renal pelvis. I did review findings with patient's , including incidental findings. Discussed case with Dr. Hampton, [facility] urologist. Reviewed patient presentation, recent history, and lab results. He agrees that this is consistent with UTI related to nephrostomy tube. Recommends unclamping the tube, obtaining urine culture from nephrostomy tube and putting tube to drainage, then initiating broad-spectrum antibiotics. Discussed case with Dr. Amaral, [facility] hospitalist. Will treat with cefepime and vancomycin. Blood cultures ordered, obtained by lab. Reviewed plan of care with patient's , who is agreeable with plan of care. Overall workup today remarkable for UTI with altered mental status. Patient does not meet sepsis criteria. Clinical Impression: - AMS - UTI Patient consented to the use of [facility] Imaging Data Radiologic Study: Radiologist's impression: Exam(s) CT CHEST/ABD/PEL WO EXAM: CT CHEST/ABD/PEL WO CLINICAL HISTORY: recent nephrostomy clipping, AMS TECHNIQUE: Imaging Protocol: Axial computed tomography images with coronal and sagittal reformatted images were created and reviewed. Computer aided detection (CAD) was utilized. COMPARISON: CT CT CHEST PE CTA from 12/30/[address] ABDOMEN PELVIS WO from 02/16/[address] CHEST PE ABD PELVIS W from 05/07/2024 FINDINGS: The examination is limited due to patient motion artifact. CHEST: Tracheobronchial tree: Patent where visualized. No bronchiectasis. Pulmonary parenchyma: No consolidation or dominant measurable mass. Atelectatic changes are seen in the lungs. There are low lung volumes. Mediastinum and Olena: No dominant adenopathy or fluid collection. The esophagus is unremarkable. Thyroid gland: Unremarkable. Pleura: No effusion or pneumothorax. Heart: Cardiomegaly. There is coronary artery calcification present. No pericardial effusion. Aorta: Thoracic aorta non-dilated. Atherosclerotic calcification is present. Lymph nodes: Within normal limits. Bones:Within normal limits for the patient's age. The bones are osteopenic. Soft tissues: Mild gynecomastia. ABDOMEN: Liver: Normal density. There is a stable cyst in the left lobe of the liver. Gallbladder and Biliary Tract: Status post cholecystectomy. No significant biliary ductal dilatation is present. Pancreas: Normal density, no abnormal calcifications or inflammatory process. Spleen: Normal. Adrenals: No masses seen. Kidneys: There is again seen a left nephrostomy tube. There is also a left nephroureteral stent in place. There is mild dilatation of the left renal collecting system which is new since the prior examination from 05/07/2024. There is no nephrolithiasis. Abdominal Aorta: Abdominal portion non-dilated. Atherosclerotic calcification is present. Bowel: No obstruction or bowel wall thickening. The stomach is incompletely distended limiting evaluation. There is a normal appendix present. Peritoneal Cavity: No ascites, collection or mesenteric inflammatory response. No free air. Lymph Nodes: Within normal limits. Bones: Within normal limits for the patient's age. Soft Tissues: There is a small fat containing umbilical hernia. There is a small fat containing left inguinal hernia. There is atrophy of the anterior abdominal wall musculature on the right. PELVIS: Bladder: Symmetric distention, no gross wall thickening. Reproductive Organs: The prostate gland is mildly enlarged. Lymph Nodes: Within normal limits. Bones: Within normal limits for the patient's age. IMPRESSION: 1. There is no acute pulmonary process. 2. New mild dilatation of the left renal pelvis. 3. Incidental findings in the abdomen and pelvis as described above. Radiologic Study #2: Radiologist's impression: Exam(s) CT BRAIN NECK CTA EXAM: CT BRAIN NECK CTA CLINICAL HISTORY: AMS, sudden onset 1345. TECHNIQUE: Imaging Protocol: Axial CT angiography was performed with multi-slice acquisition and multi-planar and/or 3D reconstructions. CONTRAST MATERIAL: Intravenous: Omnipaque 350 contrast volume:70 mL COMPARISON: CT CT HEAD WO from 04/27/[address] HEAD WO from 03/21/2024 FINDINGS: The examination is limited due to artifact from the patient's dental work. CT Head W/O and W: Ventricles and Extra axial spaces: Normal in size and morphology for the patient's age. Hemorrhage: None. Cerebral parenchyma: There are areas of decreased attenuation in the white matter consistent with chronic microvascular ischemic disease. There is no evidence of an acute territorial infarct. Midline shift: None. Brainstem/Cerebellum: Normal. Calvarium: Normal. Visualized Paranasal sinuses/Mastoids: Clear. Soft Tissues: Unremarkable. Enhancement: Unremarkable. CTA Neck W: Common Carotid: Right: No dissection, occlusion or significant stenosis. There is atherosclerotic calcifications seen in the distal common carotid artery in the carotid bulb without significant stenosis. Left: No dissection, occlusion or significant stenosis. External Carotid: Right: No occlusion or significant stenosis. Left: No occlusion or significant stenosis. Internal Carotid: Right: No dissection, occlusion or significant stenosis. Left: No dissection, occlusion or significant stenosis. There is atherosclerotic calcifications seen in the proximal left internal carotid artery with approximately 50 percent stenosis. Vertebral Artery: Right: There is no dissection. There is marked stenosis at the origin of the right vertebral artery. There is near complete occlusion. There is reconstitution immediately distal to the stenosis. Left: No dissection, occlusion or significant stenosis. There is atherosclerotic calcification at the origin of the left vertebral artery without significant stenosis. Lung Apices: There is patient motion artifact limiting evaluation in the lung apices. There are no focal consolidating infiltrates present. Bones: Within normal limits for the patient's age. Soft Tissues: Normal. Thyroid gland: Unremarkable. CTA Brain W: Internal Carotid Arteries: There is atherosclerotic calcifications seen in the cavernous portions of the internal carotid arteries bilaterally with less than 50 percent stenosis. Anterior Cerebral Arteries: Right: No aneurysm, occlusion or significant stenosis. Left: No aneurysm, occlusion or significant stenosis. Middle Cerebral Arteries: Right: No aneurysm, occlusion or significant stenosis. Left: No aneurysm, occlusion or significant stenosis. Posterior Cerebral Arteries: Right: No aneurysm, occlusion or significant stenosis. Left: No aneurysm, occlusion or significant stenosis. Vertebral Arteries: Right: No aneurysm, occlusion or significant stenosis. Left: No aneurysm, occlusion or significant stenosis. Basilar Artery: No aneurysm, occlusion or significant stenosis. IMPRESSION: 1. Atherosclerotic calcification at the origin of the left internal carotid artery with less than 50 percent stenosis. 2. Within the limits of the examination, there is no acute intracranial process. 3. Marked stenosis/near complete occlusion at the origin of the right vertebral artery with immediate reconstitution distally. 4. Atherosclerotic calcification at the origin of the left vertebral artery with less than 50 percent stenosis. Quality:SDOH Health Related Social Needs: Health related social needs daily activities PFSH All Active Problems (Updated 09/18/24 @ 19:34 by Andra Ashley) Stenosis of right vertebral artery (Acute) Acute alteration in mental status (Acute) Urinary tract infection associated with nephrostomy catheter (Acute) Complicated UTI (urinary tract infection) (Acute) Renal calculus, left (Chronic) Hydronephrosis of left kidney (Chronic) Altered mental status (Acute) Nail dystrophy (Acute) Yeast UTI (Acute) Confusion associated with infection (Acute) Confusion (Acute) Abnormal urinalysis (Acute) Pulmonary emboli (Chronic) Sepsis (Acute) Hematuria (Acute) Acute hypoxic respiratory failure (Acute) Edema of both lower extremities (Acute) Well-managed, with exercise/activity; b/l general .. trial compression and lasix Elevated parathyroid hormone (Acute) Osteoarthritis of right knee (Acute) Steroid injection: 03/04/24; 05/19/2023 Hypercalcemia (Acute) CKD (chronic kidney disease) stage 3, GFR 30-59 ml/min (Acute) Stage 3, 2022, with LALA (GFR <30!) 2' over-diures.. Hx stage 2-3 (2021) Edema of foot (Acute) Knee pain, bilateral (Acute) ? goop injection Onychomycosis (Acute) Lumbar spondylosis (Acute) Lumbar back pain (Acute) Lumbar adjacent segment disease with spondylolisthesis (Acute) intermediate (current) use of anticoagulants (Acute) Osteoarthritis of left knee (Acute) Steroid injection: 03/04/24; 05/19/2023; 12/07/2020 HTN (hypertension) (Chronic) Hyperlipidemia (Chronic 10/24/04) RISK 12% 11/2005; LDL goal 100 Need labs, [ ] Fall 201807/01/18 Medical History (Updated 09/18/24 @ 19:34 by Andra Ashley) Pneumonia Leg edema Resolves with activity, qAM, 04/2022.. (Worsening, re-start furosemide, 10/2020) Renal calculus Hematuria: CT (01/09/23) vs. CT (04/27/2022):.. largest calculus in the left kidney has now migrated to the upper left ureter/UPJ level (prob responsible for hematuria)..no obvious dilatation of the left collecting system above this level..another calculus again noted in the left left kidney lower pole calyx (no changed position)..previously present 3 mm calculus in the bladder no longer seen and has most probably passed. 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 07/2021 Left knee pain Acute on chronic. Not a surgical candidate. Cane helping - may need training.. BPH w/o urinary obs/LUTS (02/15/11) nocturiaX1-2; INCR 3X 09/2012 Acute on chronic renal failure Acute exacerbation of congestive heart failure Hosp; resolved .. but with too much fluid restriction post hosp! Bakers cyst Rt, 4cm.. incidental finding on US DVT (deep venous thrombosis) New DVT, 02/2021. Xarelto started. Resolved, Eliquis D/C'd 07/2020 by Surg. C. 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 denies this stated that this was due to an interaction a year ago where having the masks on and he his hard of hearing they stated he had dementia which his and current PCP stated he does not. 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 Taylor started him on HCTZ 2005. High BP readings @ ophtho, urol . turns out to be 2' finesteride, Dr. Smallwood d/c'd .. will follow up in July 2018. 125/85 today, 06/2018, ik. Surgical History (Updated 05/11/24 @ 00:03 by KERMIT BARRERA) Hx of cataract removal with insertion of prosthetic lens 12/11/20 [place], [facility] Posterior subcapsular age-related cataract, right eye Nuclear sclerotic cataract of right eye S/P cholecystectomy (01/24/20) S/P ERCP Arthroscopy (02/10/84) in CT, Left knee Family History Son Age: 60 No problems noted. 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
--- NOTE | 2024-09-18 15:45 | DI.CT_ITS ---
Exam(s) CT BRAIN NECK CTA EXAM: CT BRAIN NECK CTA CLINICAL HISTORY: AMS, sudden onset 1345. TECHNIQUE: Imaging Protocol: Axial CT angiography was performed with multi- slice acquisition and multi-planar and/or 3D reconstructions. CONTRAST MATERIAL: Intravenous: Omnipaque 350 contrast volume:70 mL COMPARISON: CT CT HEAD WO from 04/27/[address] HEAD WO from 03/21/2024 FINDINGS: The examination is limited due to artifact from the patient's dental work. CT Head W/O and W: Ventricles and Extra axial spaces: Normal in size and morphology for the patient's age. Hemorrhage: None. Cerebral parenchyma: There are areas of decreased attenuation in the white matter consistent with chronic microvascular ischemic disease. There is no evidence of an acute territorial infarct. Midline shift: None. Brainstem/Cerebellum: Normal. Calvarium: Normal. Visualized Paranasal sinuses/Mastoids: Clear. Soft Tissues: Unremarkable. Enhancement: Unremarkable. CTA Neck W: Common Carotid: Right: No dissection, occlusion or significant stenosis. There is atherosclerotic calcifications seen in the distal common carotid artery in the carotid bulb without significant stenosis. Left: No dissection, occlusion or significant stenosis. External Carotid: Right: No occlusion or significant stenosis. Left: No occlusion or significant stenosis. Internal Carotid: Right: No dissection, occlusion or significant stenosis. Left: No dissection, occlusion or significant stenosis. There is atherosclerotic calcifications seen in the proximal left internal carotid artery with approximately 50 percent stenosis. Vertebral Artery: Right: There is no dissection. There is marked stenosis at the origin of the right vertebral artery. There is near complete occlusion. There is reconstitution immediately distal to the stenosis. Left: No dissection, occlusion or significant stenosis. There is atherosclerotic calcification at the origin of the left vertebral artery without significant stenosis. Lung Apices: There is patient motion artifact limiting evaluation in the lung apices. There are no focal consolidating infiltrates present. Bones: Within normal limits for the patient's age. Soft Tissues: Normal. Thyroid gland: Unremarkable. CTA Brain W: Internal Carotid Arteries: There is atherosclerotic calcifications seen in the cavernous portions of the internal carotid arteries bilaterally with less than 50 percent stenosis. Anterior Cerebral Arteries: Right: No aneurysm, occlusion or significant stenosis. Left: No aneurysm, occlusion or significant stenosis. Middle Cerebral Arteries: Right: No aneurysm, occlusion or significant stenosis. Left: No aneurysm, occlusion or significant stenosis. Posterior Cerebral Arteries: Right: No aneurysm, occlusion or significant stenosis. Left: No aneurysm, occlusion or significant stenosis. Vertebral Arteries: Right: No aneurysm, occlusion or significant stenosis. Left: No aneurysm, occlusion or significant stenosis. Basilar Artery: No aneurysm, occlusion or significant stenosis. IMPRESSION: 1. Atherosclerotic calcification at the origin of the left internal carotid artery with less than 50 percent stenosis. 2. Within the limits of the examination, there is no acute intracranial process. 3. Marked stenosis/near complete occlusion at the origin of the right vertebral artery with immediate reconstitution distally. 4. Atherosclerotic calcification at the origin of the left vertebral artery with less than 50 percent stenosis. RADIATION DOSE DELIVERED: 2,381.88mGy.cm Total DLP DATA REPOSITORY: All CT scans at this facility are submitted to the National Radiology Data Registry (NRDR) Dose Index Registry (DIR) with the [employer] (ACR). RADIATION OPTIMIZATION: All CT scans at this facility use at least one of these dose optimization techniques: automated exposure control; mA and/or kV adjustment per patient size (includes targeted exams where dose is matched to clinical indication); or iterative reconstruction.
--- NOTE | 2024-09-18 15:45 | DI.CT_ITS ---
Exam(s) CT CHEST/ABD/PEL WO EXAM: CT CHEST/ABD/PEL WO CLINICAL HISTORY: recent nephrostomy clipping, AMS TECHNIQUE: Imaging Protocol: Axial computed tomography images with coronal and sagittal reformatted images were created and reviewed. Computer aided detection (CAD) was utilized. COMPARISON: CT CT CHEST PE CTA from 12/30/[address] ABDOMEN PELVIS WO from 02/16/[address] CHEST PE ABD PELVIS W from 05/07/2024 FINDINGS: The examination is limited due to patient motion artifact. CHEST: Tracheobronchial tree: Patent where visualized. No bronchiectasis. Pulmonary parenchyma: No consolidation or dominant measurable mass. Atelectatic changes are seen in the lungs. There are low lung volumes. Mediastinum and Olena: No dominant adenopathy or fluid collection. The esophagus is unremarkable. Thyroid gland: Unremarkable. Pleura: No effusion or pneumothorax. Heart: Cardiomegaly. There is coronary artery calcification present. No pericardial effusion. Aorta: Thoracic aorta non-dilated. Atherosclerotic calcification is present. Lymph nodes: Within normal limits. Bones:Within normal limits for the patient's age. The bones are osteopenic. Soft tissues: Mild gynecomastia. ABDOMEN: Liver: Normal density. There is a stable cyst in the left lobe of the liver. Gallbladder and Biliary Tract: Status post cholecystectomy. No significant biliary ductal dilatation is present. Pancreas: Normal density, no abnormal calcifications or inflammatory process. Spleen: Normal. Adrenals: No masses seen. Kidneys: There is again seen a left nephrostomy tube. There is also a left nephroureteral stent in place. There is mild dilatation of the left renal collecting system which is new since the prior examination from 05/07/2024. There is no nephrolithiasis. Abdominal Aorta: Abdominal portion non-dilated. Atherosclerotic calcification is present. Bowel: No obstruction or bowel wall thickening. The stomach is incompletely distended limiting evaluation. There is a normal appendix present. Peritoneal Cavity: No ascites, collection or mesenteric inflammatory response. No free air. Lymph Nodes: Within normal limits. Bones: Within normal limits for the patient's age. Soft Tissues: There is a small fat containing umbilical hernia. There is a small fat containing left inguinal hernia. There is atrophy of the anterior abdominal wall musculature on the right. PELVIS: Bladder: Symmetric distention, no gross wall thickening. Reproductive Organs: The prostate gland is mildly enlarged. Lymph Nodes: Within normal limits. Bones: Within normal limits for the patient's age. IMPRESSION: 1. There is no acute pulmonary process. 2. New mild dilatation of the left renal pelvis. 3. Incidental findings in the abdomen and pelvis as described above. RADIATION DOSE DELIVERED: 1,515.38mGy.cm Total DLP 1,515.38mGy.cm Total DLP DATA REPOSITORY: All CT scans at this facility are submitted to the National Radiology Data Registry (NRDR) Dose Index Registry (DIR) with the [employer] (ACR). RADIATION OPTIMIZATION: All CT scans at this facility use at least one of these dose optimization techniques: automated exposure control; mA and/or kV adjustment per patient size (includes targeted exams where dose is matched to clinical indication); or iterative reconstruction.
[2024-09-18 16:21] LABS: Glucose Negative (Negative)
[2024-09-18 16:28] LABS: C & S Indicated? Yes; RBC >50 HPF (0-2)
[2024-09-18 16:29] LABS: WBC >50 HPF (0-5)
[2024-09-18 16:34] LABS: BE (Venous) 6 mmol/L (-2-3); HCO3 (Venous) 31 mmol/L (23-28); O2 Sat (Venous) 71 %; TCO2 (Venous) 28 mmol/L (24-29); pCO2 (Venous) 51 mmHg (41-51); pO2 (Venous) 39 mmHg
[2024-09-18 16:36] LABS: Abs Immature Grans 0.06 10^3/uL (0.0-0.06); HCT 41.5 % (40.0-50.0); HGB 13.0 g/dL (13.5-17.5); Immature Grans % 0.9 %; MCH 26.3 pg (27.0-33.0); MCHC 31.3 % (32.0-36.0); MCV 84 fL (80-95); MPV 8.9 fL (8.0-11.0); Platelet Count 148 10^3/uL (130-400); RBC 4.95 10^6/uL (4.36-5.78); RDW 16.5 % (11.8-14.1); RDW-SD 50.4 fL; WBC 7.00 10^3/uL (4.4-10.8)
[2024-09-18 16:49] LABS: INR 1.1 (0.9-1.1); PTT Activated 23.9 sec (20.6-30.2); Prothrombin Time 11.2 sec (9.1-11.1)
[2024-09-18 16:54] LABS: COVID-19 PCR Negative (Negative); RSV PCR Negative (Negative)
[2024-09-18 16:57] LABS: ALT 13 U/L (16-63); AST 14 U/L (15-37); Albumin 3.3 g/dL (3.4-5.0); Alkaline Phosphatase 53 U/L (46-116); Anion Gap 6.2 mmol/L (3-11); BUN 26 mg/dL (7-18); Bilirubin, Total 1.5 mg/dL (0.2-1.0); CO2 31.8 mmol/L (21.0-32.0); Calcium 10.2 mg/dL (8.5-10.1); Chloride 103 mmol/L (98-107); Estimated GFR 49.56 (mL/min/1.73m2); Glucose 104 mg/dL (74-106); Potassium 4.6 mmol/L (3.5-5.1); Sodium 141 mmol/L (136-145); Total Protein 7.1 g/dL (6.4-8.2)
[2024-09-18] MEDS: Omnipaque 350 MG/ML 100 ML BTL 70 ML IJ (16:59)
[2024-09-18] MEDS: Normal Saline - Diluent 50 ML VIAL IJ (16:59)
[2024-09-18 17:06] LABS: Magnesium 2.3 mg/dL (1.8-2.4); NT-proBNP 2151 pg/mL (<300); TSH (W/Ref FT4) 0.87 uIU/mL (0.36-3.74); Troponin I 11 ng/L (<or=76)
[2024-09-18] MEDS: Normal Saline 500 ML IV (17:10)
[2024-09-18 17:42] LABS: Troponin I 11 ng/L (<or=76)
[2024-09-18 18:30] LABS: Glucose Negative (Negative)
[2024-09-18 18:36] LABS: RBC >50 HPF (0-2)
[2024-09-18 18:37] LABS: C & S Indicated? No; WBC >50 HPF (0-5)
--- NOTE | 2024-09-18 19:04 | W.PM.HP.N ---
Date of service: 09/18/24 Time of Service: 19:04 Assessment and Plan Assessment and plan (1) Altered mental status: Start date: 09/18/24 Status: Acute Assessment and plan: This is an 83-year-old gentleman with acute onset of no status changes most likely secondary to UTI. He is not septic. He has had sepsis with urinary tract in the past. He was assisted by his in the ED. Patient will be given gentle IV hydration with dehydration being a problem in the past and broad-spectrum antibiotic therapy, cefepime and vancomycin for complicated UTI. He does had his left nephrostomy tube replaced and clamped. His urologist will be involved in aftercare. He does plan to return to the detention. He is a full code. (2) Complicated UTI (urinary tract infection): Start date: 09/18/24 Status: Acute Assessment and plan: Patient has left hydronephrosis with nephrostomy tube diverting now clamped attempting to have the patient urinate through his bladder. He is incontinent of urine with no Ng. Follow-up on urine culture and adjust antibiotic therapy accordingly. (3) Hydronephrosis of left kidney: Status: Chronic Assessment and plan: With left nephrostomy tube in place which could be used if he has failure to have urine passed through his left ureter. Urology consultation if needed during his hospital stay. (4) Renal calculus, left: Status: Chronic Assessment and plan: Patient does have obstructing urinary calculi in his left system now with ureteral instrumentation discontinued and attempting not to use his nephrostomy tube which is diverting hydronephrosis. Follow-up urology as scheduled. (5) HTN (hypertension): Status: Chronic Assessment and plan: Continue outpatient medical therapy adjusting as needed. (6) Leg edema: Assessment and plan: Hold furosemide. Patient is on gentle IV hydration. 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 There is immediate collateral flow and he does not appear to have focal findings of an acute stroke. As his delirium clears this can be further assessed. History of Present Illness History of Present Illness Chief Complaint: Sudden onset confusion post procedure on left nephrostomy tube. Narrative: This is an 83-year-old male patient who resides at the local detention having a procedure with left nephrostomy tube exchanged and then explant attempting to have the patient urinate normally through his bladder. He has had decreased intake and decreased urinary output since that procedure the day prior to presentation. He did not have fever upon presentation but change in mental status and at baseline he had difficulty walking being in the detention for this issue. his attended him in the ED given history to the ED provider. The ED provider also discussed the case with his urologist who did the procedure prior to presentation. Patient was off baseline with his confusion and his stated that he at times will get dehydrated and have confusion. He was given gentle IV hydration with an elevated BNP and initiated on cefepime and vancomycin for possible UTI which would be complicated with instrumentation. He did not meet sepsis criteria. He did not have fever but did have mildly elevated WBC with positive UA. His vital signs were stable with hypertension rather than hypotension upon presentation. His states that he is a full code. Review of Systems Narrative: 13 point review of systems unobtainable. Patient's was the historian in the ED. [facility] All Active Problems (Updated 09/19/24 @ 06:52 by Ricardo Amaral) Stenosis of right vertebral artery (Chronic) Acute alteration in mental status (Acute) Urinary tract infection associated with nephrostomy catheter (Acute) Complicated UTI (urinary tract infection) (Acute) Renal calculus, left (Chronic) Hydronephrosis of left kidney (Chronic) Altered mental status (Acute) Nail dystrophy (Acute) Yeast UTI (Acute) Confusion associated with infection (Acute) Confusion (Acute) Abnormal urinalysis (Acute) Pulmonary emboli (Chronic) Sepsis (Acute) Hematuria (Acute) Acute hypoxic respiratory failure (Acute) Edema of both lower extremities (Acute) Well-managed, with exercise/activity; b/l general .. trial compression and lasix Elevated parathyroid hormone (Acute) Osteoarthritis of right knee (Acute) Steroid injection: 03/04/24; 05/19/2023 Hypercalcemia (Acute) CKD (chronic kidney disease) stage 3, GFR 30-59 ml/min (Acute) Stage 3, 2022, with LALA (GFR <30!) 2' over-diures.. Hx stage 2-3 (2021) Edema of foot (Acute) Knee pain, bilateral (Acute) ? goop injection Onychomycosis (Acute) Lumbar spondylosis (Acute) Lumbar back pain (Acute) Lumbar adjacent segment disease with spondylolisthesis (Acute) prison (current) use of anticoagulants (Acute) Osteoarthritis of left knee (Acute) Steroid injection: 03/04/24; 05/19/2023; 12/07/2020 HTN (hypertension) (Chronic) Hyperlipidemia (Chronic 10/24/04) RISK 12% 11/2005; LDL goal 100 Need labs, [ ] Fall 201807/01/18 Medical History Pneumonia Leg edema Resolves with activity, qAM, 04/2022.. (Worsening, re-start furosemide, 10/2020) Renal calculus Hematuria: CT (01/09/23) vs. CT (04/27/2022):.. largest calculus in the left kidney has now migrated to the upper left ureter/UPJ level (prob responsible for hematuria)..no obvious dilatation of the left collecting system above this level..another calculus again noted in the left left kidney lower pole calyx (no changed position)..previously present 3 mm calculus in the bladder no longer seen and has most probably passed. 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 07/2021 Left knee pain Acute on chronic. Not a surgical candidate. Cane helping - may need training.. BPH w/o urinary obs/LUTS (02/15/11) nocturiaX1-2; INCR 3X 09/2012 Acute on chronic renal failure Acute exacerbation of congestive heart failure Hosp; resolved .. but with too much fluid restriction post hosp! Bakers cyst Rt, 4cm.. incidental finding on US DVT (deep venous thrombosis) New DVT, 02/2021. Xarelto started. Resolved, Eliquis D/C'd 07/2020 by Surg. C. 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 denies this stated that this was due to an interaction a year ago where having the masks on and he his hard of hearing they stated he had dementia which his and current PCP stated he does not. 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 Taylor started him on HCTZ 2005. High BP readings @ ophtho, urol . turns out to be 2' finesteride, Dr. Smallwood d/day .. will follow up in July 2018. 125/85 today, 06/2018, ik. Surgical History Hx of cataract removal with insertion of prosthetic lens 12/11/20 [place], [facility] Posterior subcapsular age-related cataract, right eye Nuclear sclerotic cataract of right eye S/P cholecystectomy (01/24/20) S/P ERCP Arthroscopy (02/10/84) in CT, Left knee Family History Son Age: 62 No problems noted. 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 [employer] Current gender identity: male What type of physical activity do you participate in: none Working smoke detector in home: Yes Fire extinguisher in home: Yes Carbon monox detector in home: Yes Additional Social history: unable to assess privately Meds Allergies and Home Medications Allergies Allergy/AdvReac Type Severity Reaction Status Date / Time amlodipine AdvReac Mild nightmares/restless Verified 09/18/24 15:16 sleep hydrochlorothiazide AdvReac Mild possible Verified 09/18/24 15:16 Erectile dysfunction finasteride AdvReac Hypertensio Verified 09/18/24 15:16 n Home Medications ?Medication ?Instructions ?Recorded ?Confirmed ?Type cholecalciferol (vitamin D3) 1,250 1,250 mcg PO QWEEK 06/15/24 09/18/24 History mcg (50,000 unit) capsule acetaminophen 500 mg capsule 1,000 mg PO BID 09/18/24 09/18/24 History calcitonin (salmon) 200 1 spray intranasal .QOD 09/18/24 09/18/24 History unit/actuation nasal spray docusate sodium 100 mg capsule 100 mg PO DAILY 09/18/24 09/18/24 History furosemide 20 mg tablet (Lasix) 20 mg PO BID 09/18/24 09/18/24 History metoprolol tartrate 25 mg tablet 12.5 mg PO BID 09/18/24 09/18/24 History omeprazole 20 mg capsule,delayed 40 mg PO DAILY 09/18/24 09/18/24 History release polyethylene glycol 3350 17 17 g PO BID 09/18/24 09/18/24 History gram/dose oral powder (Miralax) rivaroxaban 10 mg tablet (Xarelto) 20 mg PO QPM 09/18/24 09/18/24 History Exam Narrative Exam Narrative: General: Patient appears older than stated age, morbidly obese lying in bed on his left side with head elevated. He is not responding to questions but does respond to tactile stimuli. He appears delirious with his acute process, not answering questions. HEENT: Normocephalic, coarsened facial features with unshaven face, eyes with pupils equal and reactive to light symmetrically, extraocular movement intact and sclera anicteric. Oropharynx with dry mucosa and poor dentition. Neck: Supple without JVD. Back: Kyphotic without CVA tenderness. There is a clamp nephrostomy tube over the left back. Lungs: Poor inspiratory effort but no focalizing rales or rhonchi appreciated. No expiratory wheeze. Heart: Distant heart sounds with regular rate and rhythm and no appreciable murmur or gallop. Abdomen: Obese contour, soft and nontender to palpation with no palpable hepatosplenomegaly. No guarding or rebound. Bowel sounds positive in all quadrants. Large pannus. Genitalia/rectal: Exam deferred. Extremities: Without pitting edema with patient having moderate 3+ nonpitting edema both lower extremities. He is obese over the extremities as well. Some skin changes over legs with loss of hair but no hyperpigmentation, ulcerations or atrophy. Skin: Pale, warm and dry. Neuro: Cranial nerves II through XII appear to be grossly intact, no focalizing motor deficits and no tremor. Psych: Patient is delirious with assessment for abnormal thought processes and memory not possible. He is delirious. Results Imaging Imaging Studies: EXAM: CT CHEST/ABD/PEL WO CLINICAL HISTORY: recent nephrostomy clipping, AMS COMPARISON: CT CT CHEST PE CTA from 12/30/[address] ABDOMEN PELVIS WO from 02/16/[address] CHEST PE ABD PELVIS W from 05/07/2024 FINDINGS: The examination is limited due to patient motion artifact. CHEST: Tracheobronchial tree: Patent where visualized. No bronchiectasis. Pulmonary parenchyma: No consolidation or dominant measurable mass. Atelectatic changes are seen in the lungs. There are low lung volumes. Mediastinum and Olena: No dominant adenopathy or fluid collection. The esophagus is unremarkable. Thyroid gland: Unremarkable. Pleura: No effusion or pneumothorax. Heart: Cardiomegaly. There is coronary artery calcification present. No pericardial effusion. Aorta: Thoracic aorta non-dilated. Atherosclerotic calcification is present. Lymph nodes: Within normal limits. Bones:Within normal limits for the patient's age. The bones are osteopenic. Soft tissues: Mild gynecomastia. ABDOMEN: Liver: Normal density. There is a stable cyst in the left lobe of the liver. Gallbladder and Biliary Tract: Status post cholecystectomy. No significant biliary ductal dilatation is present. Pancreas: Normal density, no abnormal calcifications or inflammatory process. Spleen: Normal. Adrenals: No masses seen. Kidneys: There is again seen a left nephrostomy tube. There is also a left nephroureteral stent in place. There is mild dilatation of the left renal collecting system which is new since the prior examination from 05/07/2024. There is no nephrolithiasis. Abdominal Aorta: Abdominal portion non-dilated. Atherosclerotic calcification is present. Bowel: No obstruction or bowel wall thickening. The stomach is incompletely distended limiting evaluation. There is a normal appendix present. Peritoneal Cavity: No ascites, collection or mesenteric inflammatory response. No free air. Lymph Nodes: Within normal limits. Bones: Within normal limits for the patient's age. Soft Tissues: There is a small fat containing umbilical hernia. There is a small fat containing left inguinal hernia. There is atrophy of the anterior abdominal wall musculature on the right. PELVIS: Bladder: Symmetric distention, no gross wall thickening. Reproductive Organs: The prostate gland is mildly enlarged. Lymph Nodes: Within normal limits. Bones: Within normal limits for the patient's age. IMPRESSION: 1. There is no acute pulmonary process. 2. New mild dilatation of the left renal pelvis. 3. Incidental findings in the abdomen and pelvis as described above. EXAM: CT BRAIN NECK CTA CLINICAL HISTORY: AMS, sudden onset 1345. CONTRAST MATERIAL: Intravenous: Omnipaque 350 contrast volume:70 mL COMPARISON: CT CT HEAD WO from 04/27/[address] HEAD WO from 03/21/2024 FINDINGS: The examination is limited due to artifact from the patient's dental work. CT Head W/O and W: Ventricles and Extra axial spaces: Normal in size and morphology for the patient's age. Hemorrhage: None. Cerebral parenchyma: There are areas of decreased attenuation in the white matter consistent with chronic microvascular ischemic disease. There is no evidence of an acute territorial infarct. Midline shift: None. Brainstem/Cerebellum: Normal. Calvarium: Normal. Visualized Paranasal sinuses/Mastoids: Clear. Soft Tissues: Unremarkable. Enhancement: Unremarkable. CTA Neck W: Common Carotid: Right: No dissection, occlusion or significant stenosis. There is atherosclerotic calcifications seen in the distal common carotid artery in the carotid bulb without significant stenosis. Left: No dissection, occlusion or significant stenosis. External Carotid: Right: No occlusion or significant stenosis. Left: No occlusion or significant stenosis. Internal Carotid: Right: No dissection, occlusion or significant stenosis. Left: No dissection, occlusion or significant stenosis. There is atherosclerotic calcifications seen in the proximal left internal carotid artery with approximately 50 percent stenosis. Vertebral Artery: Right: There is no dissection. There is marked stenosis at the origin of the right vertebral artery. There is near complete occlusion. There is reconstitution immediately distal to the stenosis. Left: No dissection, occlusion or significant stenosis. There is atherosclerotic calcification at the origin of the left vertebral artery without significant stenosis. Lung Apices: There is patient motion artifact limiting evaluation in the lung apices. There are no focal consolidating infiltrates present. Bones: Within normal limits for the patient's age. Soft Tissues: Normal. Thyroid gland: Unremarkable. CTA Brain W: Internal Carotid Arteries: There is atherosclerotic calcifications seen in the cavernous portions of the internal carotid arteries bilaterally with less than 50 percent stenosis. Anterior Cerebral Arteries: Right: No aneurysm, occlusion or significant stenosis. Left: No aneurysm, occlusion or significant stenosis. Middle Cerebral Arteries: Right: No aneurysm, occlusion or significant stenosis. Left: No aneurysm, occlusion or significant stenosis. Posterior Cerebral Arteries: Right: No aneurysm, occlusion or significant stenosis. Left: No aneurysm, occlusion or significant stenosis. Vertebral Arteries: Right: No aneurysm, occlusion or significant stenosis. Left: No aneurysm, occlusion or significant stenosis. Basilar Artery: No aneurysm, occlusion or significant stenosis. IMPRESSION: 1. Atherosclerotic calcification at the origin of the left internal carotid artery with less than 50 percent stenosis. 2. Within the limits of the examination, there is no acute intracranial process. 3. Marked stenosis/near complete occlusion at the origin of the right vertebral artery with immediate reconstitution distally. 4. Atherosclerotic calcification at the origin of the left vertebral artery with less than 50 percent stenosis. Date of Exam: 09/16/22 EXAM: Comprehensive 2D, Doppler, and color-flow Echocardiogram Indications: CHF, Evaluate LV and RV Other Information Study Quality: Fair. Technically limited study due to body habitus, inability to position patient exam done supine in the er. Conclusion Normal left ventricular wall thickness and chamber size. Ejection fraction is 55%. Wall motion appears normal Right ventricle is not well visualized but does not appear enlarged Normal left and right atrial size Aortic valve is sclerotic without stenosis or regurgitation Mild mitral annular calcification, trace mitral regurgitation Estimated right ventricular systolic pressure is 18 mmHg Mildly dilated ascending aorta measuring 3.54 cm Labs 09/18/24 16:28 09/18/24 16:28 Labs: Laboratory Results - last 24 hr 09/18/24 09/18/24 09/18/24 16:15 16:28 17:20 WBC 7.00 RBC 4.95 Hgb 13.0 L Hct 41.5 MCV 84 MCH 26.3 L MCHC 31.3 L RDW 16.5 H Plt Count 148 MPV 8.9 Immature Gran % 0.9 Neutrophils % 66.8 Lymphocytes % 16.9 Monocytes % 14.4 Eosinophils % 0.6 Basophils % 0.4 Nucleated RBC % 0.0 Absolute Neutrophils 4.68 Absolute Lymphocytes 1.18 L Absolute Monocytes 1.01 H Absolute Eosinophils 0.04 Absolute Basophils 0.03 PT 11.2 H INR 1.1 APTT 23.9 VBG pH 7.39 VBG pCO2 51 VBG pO2 39 VBG HCO3 31 H VBG Total CO2 28 VBG O2 Saturation 71 VBG Base Excess 6 H VBG Lactate 1.6 Sodium 141 Potassium 4.6 Chloride 103 Carbon Dioxide 31.8 Anion Gap 6.2 BUN 26 H Creatinine 1.4 H Est GFR (CKD-EPI 2020) 49.56 Glucose 104 Calcium 10.2 H Magnesium 2.3 Total Bilirubin 1.5 H AST 14 L ALT 13 L Alkaline Phosphatase 53 Troponin I 11 11 NT-Pro-B Natriuret Pep 2151 H Total Protein 7.1 Albumin 3.3 L TSH 0.87 Urine Color Yellow Urine Clarity Cloudy Urine pH 6.5 Ur Specific [place] 1.020 Urine Protein 100 H Urine Ketones Negative Urine Blood Large H Urine Nitrite Negative Urine Bilirubin Negative Urine Urobilinogen 0.2 Ur Leukocyte Esterase Large H Urine RBC >50 H Urine WBC >50 H Ur Epithelial Cells Not Applicable Urine Crystals Not Applicable Urine Bacteria Not Applicable Urine Mucus Not Applicable Ur Culture Indicated? Yes Urine Glucose Negative COVID-19 Source Nasopharynx SARS-CoV-2 (PCR) Negative Influenza Type A (PCR) Negative Influenza Type B (PCR) Negative RSV (PCR) Negative 09/18/24 18:04 WBC RBC Hgb Hct MCV MCH MCHC RDW Plt Count MPV Immature Gran % Neutrophils % Lymphocytes % Monocytes % Eosinophils % Basophils % Nucleated RBC % Absolute Neutrophils Absolute Lymphocytes Absolute Monocytes Absolute Eosinophils Absolute Basophils PT INR APTT VBG pH VBG pCO2 VBG pO2 VBG HCO3 VBG Total CO2 VBG O2 Saturation VBG Base Excess VBG Lactate Sodium Potassium Chloride Carbon Dioxide Anion Gap BUN Creatinine Est GFR (CKD-EPI 2020) Glucose Calcium Magnesium Total Bilirubin AST ALT Alkaline Phosphatase Troponin I NT-Pro-B Natriuret Pep Total Protein Albumin TSH Urine Color Yellow Urine Clarity Cloudy Urine pH 7.0 Ur Specific [place] 1.020 Urine Protein 100 H Urine Ketones Negative Urine Blood Large H Urine Nitrite Negative Urine Bilirubin Negative Urine Urobilinogen 0.2 Ur Leukocyte Esterase Moderate H Urine RBC >50 H Urine WBC >50 H Ur Epithelial Cells Not Applicable Urine Crystals Not Applicable Urine Bacteria Not Applicable Urine Mucus Not Applicable Ur Culture Indicated? No Urine Glucose Negative COVID-19 Source SARS-CoV-2 (PCR) Influenza Type A (PCR) Influenza Type B (PCR) RSV (PCR) Last Vital Signs Temp 37.1 C 09/18/24 15:44 Pulse 89 09/18/24 18:20 Resp 19 09/18/24 18:20 BP 193/98 H 09/18/24 18:16 Pulse Ox 94 09/18/24 18:20 Time Spent Time spent with Patient: >75 minutes Time was spent: preparing to see the patient(eg.review tests), obtaining and/or reviewing separately otained hiistory, ordering medications,tests, procedures, indepentently interpreting results and care coordination
[2024-09-18] MEDS: CEFEPIME 2 GM in Normal Saline 100 ML IVPB (19:59)
--- NOTE | 2024-09-18 20:29 | W.PC.ACHO ---
Registration Status: REG ER Primary Language: Preferred Language: Lithuanian ED Information & Data Chief Complaint AMS/LOC 09/18/24 15:48 Chief Complaint AMS/LOC 09/18/24 15:44 Triage Note from francesco, change in mental 09/18/24 15:44 status, had nephro tube clamped last week. 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) Benign hypertension (12/09/05) (Last Reviewed 03/15/24 @ 14:40 by Elliot Nunes) Hx of cataract removal with insertion of prosthetic lens Posterior subcapsular age-related cataract, right eye Nuclear sclerotic cataract of right eye S/P cholecystectomy (01/24/20) S/P ERCP Arthroscopy (02/10/84) Most Recent Vital Signs Temperature 37.1 C 09/18/24 15:44 Temperature Source Oral 09/18/24 15:44 Pulse 83 09/18/24 20:01 Pulse 84 09/18/24 20:01 Respiratory Rate 20 09/18/24 20:01 Respiratory Effort Normal 09/18/24 16:15 Blood Pressure 132/78 09/18/24 20:01 Blood Pressure Mean 94 09/18/24 20:01 Blood Pressure Position Sitting 09/18/24 15:44 Pulse Oximetry 91 L 09/18/24 20:01 Oxygen Delivery Method Room Air 09/18/24 15:44 Oxygen Flow Rate 0 09/18/24 15:44 Allergies amlodipine Adverse Reaction (Mild, Verified 09/18/24 15:16) nightmares/restless sleep hydrochlorothiazide Adverse Reaction (Mild, Verified 09/18/24 15:16) possible Erectile dysfunction finasteride Adverse Reaction (Verified 09/18/24 15:16) Hypertension Active Medications Generic Name Dose Route Start Last Admin Trade Name Ynes PRN Reason Stop Dose Admin Iohexol 70 ml 09/18/24 17:00 09/18/24 16:59 Omnipaque 350 Mg/Ml 100 Ml Btl IJ 10/18/24 23:59 70 ml DIRECTED PIPER Administration Sodium Chloride 50 ml 09/18/24 17:00 09/18/24 16:59 Normal Saline - Diluent 50 Ml Vial IJ 50 ml .FOR DI USE PIPER Administration IV IV Catheter Type [Right Peripheral IV Antecubital] IV Catheter Gauge [Right 18 Antecubital] Diagnostics 09/18/24 09/18/24 09/18/24 Range/Units 19:19 18:47 18:04 WBC (4.4-10.8) 10^3/uL RBC (4.36-5.78) 10^6/uL Hgb (13.5-17.5) g/dL Hct (40.0-50.0) % MCV (80-95) fL MCH (27.0-33.0) pg MCHC (32.0-36.0) % RDW (11.8-14.1) % Plt Count (130-400) 10^3/uL MPV (8.0-11.0) fL Immature Gran % % Neutrophils % % Lymphocytes % % Monocytes % % Eosinophils % % Basophils % % Nucleated RBC % (0.0-0.3) % Absolute Neutrophils (1.2-6.7) 10^3/uL Absolute Lymphocytes (1.2-3.4) 10^3/uL Absolute Monocytes (0.1-0.8) 10^3/uL Absolute Eosinophils (0.0-0.7) 10^3/uL Absolute Basophils (0.0-0.2) 10^3/uL PT (9.1-11.1) sec INR (0.9-1.1) APTT (20.6-30.2) sec VBG pH (7.31-7.41) VBG pCO2 (41-51) mmHg VBG pO2 mmHg VBG HCO3 (23-28) mmol/L VBG Total CO2 (24-29) mmol/L VBG O2 Saturation % VBG Base Excess (-2-3) mmol/L VBG Lactate (<or=2.0) mmol/L Sodium (136-145) mmol/L Potassium (3.5-5.1) mmol/L Chloride (98-107) mmol/L Carbon Dioxide (21.0-32.0) mmol/L Anion Gap (3-11) mmol/L BUN (7-18) mg/dL Creatinine (0.70-1.30) mg/dL Est GFR (CKD-EPI 2020) (mL/min/1.73m2) Glucose (74-106) mg/dL Calcium (8.5-10.1) mg/dL Magnesium (1.8-2.4) mg/dL Total Bilirubin (0.2-1.0) mg/dL AST (15-37) U/L ALT (16-63) U/L Alkaline Phosphatase (46-116) U/L Troponin I Pending (<or=76) ng/L NT-Pro-B Natriuret Pep (<300) pg/mL Total Protein (6.4-8.2) g/dL Albumin (3.4-5.0) g/dL TSH (0.36-3.74) uIU/mL Urine Color Yellow (Yellow) Urine Clarity Cloudy (Clear) Urine pH 7.0 (5-8) Ur Specific [place] 1.020 (1.005-1.025) Urine Protein 100 H (Neg-Trace) mg/dL Urine Ketones Negative (Negative) mg/dL Urine Blood Large H (Negative) Urine Nitrite Negative (Negative) Urine Bilirubin Negative (Negative) Urine Urobilinogen 0.2 (Up to 0.2) mg/dL Ur Leukocyte Esterase Moderate H (Negative) Urine RBC >50 H (0-2) HPF Urine WBC >50 H (0-5) HPF Ur Epithelial Cells Not Applicable Urine Crystals Not Applicable Urine Bacteria Not Applicable Urine Mucus Not Applicable Ur Culture Indicated? No Urine Glucose Negative (Negative) mg/dL COVID-19 Source SARS-CoV-2 (PCR) (Negative) Influenza Type A (PCR) (Negative) Influenza Type B (PCR) (Negative) RSV (PCR) (Negative) MRSA (TEM-PCR) Pending 09/18/24 09/18/24 09/18/24 Range/Units 17:20 16:28 16:15 WBC 7.00 (4.4-10.8) 10^3/uL RBC 4.95 (4.36-5.78) 10^6/uL Hgb 13.0 L (13.5-17.5) g/dL Hct 41.5 (40.0-50.0) % MCV 84 (80-95) fL MCH 26.3 L (27.0-33.0) pg MCHC 31.3 L (32.0-36.0) % RDW 16.5 H (11.8-14.1) % Plt Count 148 (130-400) 10^3/uL MPV 8.9 (8.0-11.0) fL Immature Gran % 0.9 % Neutrophils % 66.8 % Lymphocytes % 16.9 % Monocytes % 14.4 % Eosinophils % 0.6 % Basophils % 0.4 % Nucleated RBC % 0.0 (0.0-0.3) % Absolute Neutrophils 4.68 (1.2-6.7) 10^3/uL Absolute Lymphocytes 1.18 L (1.2-3.4) 10^3/uL Absolute Monocytes 1.01 H (0.1-0.8) 10^3/uL Absolute Eosinophils 0.04 (0.0-0.7) 10^3/uL Absolute Basophils 0.03 (0.0-0.2) 10^3/uL PT 11.2 H (9.1-11.1) sec INR 1.1 (0.9-1.1) APTT 23.9 (20.6-30.2) sec VBG pH 7.39 (7.31-7.41) VBG pCO2 51 (41-51) mmHg VBG pO2 39 mmHg VBG HCO3 31 H (23-28) mmol/L VBG Total CO2 28 (24-29) mmol/L VBG O2 Saturation 71 % VBG Base Excess 6 H (-2-3) mmol/L VBG Lactate 1.6 (<or=2.0) mmol/L Sodium 141 (136-145) mmol/L Potassium 4.6 (3.5-5.1) mmol/L Chloride 103 (98-107) mmol/L Carbon Dioxide 31.8 (21.0-32.0) mmol/L Anion Gap 6.2 (3-11) mmol/L BUN 26 H (7-18) mg/dL Creatinine 1.4 H (0.70-1.30) mg/dL Est GFR (CKD-EPI 2020) 49.56 (mL/min/1.73m2) Glucose 104 (74-106) mg/dL Calcium 10.2 H (8.5-10.1) mg/dL Magnesium 2.3 (1.8-2.4) mg/dL Total Bilirubin 1.5 H (0.2-1.0) mg/dL AST 14 L (15-37) U/L ALT 13 L (16-63) U/L Alkaline Phosphatase 53 (46-116) U/L Troponin I 11 11 (<or=76) ng/L NT-Pro-B Natriuret Pep 2151 H (<300) pg/mL Total Protein 7.1 (6.4-8.2) g/dL Albumin 3.3 L (3.4-5.0) g/dL TSH 0.87 (0.36-3.74) uIU/mL Urine Color Yellow (Yellow) Urine Clarity Cloudy (Clear) Urine pH 6.5 (5-8) Ur Specific [place] 1.020 (1.005-1.025) Urine Protein 100 H (Neg-Trace) mg/dL Urine Ketones Negative (Negative) mg/dL Urine Blood Large H (Negative) Urine Nitrite Negative (Negative) Urine Bilirubin Negative (Negative) Urine Urobilinogen 0.2 (Up to 0.2) mg/dL Ur Leukocyte Esterase Large H (Negative) Urine RBC >50 H (0-2) HPF Urine WBC >50 H (0-5) HPF Ur Epithelial Cells Not Applicable Urine Crystals Not Applicable Urine Bacteria Not Applicable Urine Mucus Not Applicable Ur Culture Indicated? Yes Urine Glucose Negative (Negative) mg/dL COVID-19 Source Nasopharynx SARS-CoV-2 (PCR) Negative (Negative) Influenza Type A (PCR) Negative (Negative) Influenza Type B (PCR) Negative (Negative) RSV (PCR) Negative (Negative) MRSA (TEM-PCR) 09/18/24 19:19 Urine Culture - Pending Urine - Urostomy 09/18/24 19:25 Blood Culture - Pending Blood 09/18/24 19:10 Blood Culture - Pending Blood 09/18/24 18:04 Urine Culture - Pending Urine - Left Urostomy Tube 09/18/24 16:15 Urine Culture - Pending Urine - Reflex from Ua [id number] Documentation Fingerstick Glucose Start: 09/18/24 15:44 Freq: Status: Active Protocol: Activity Type Activity Date Activity User E-sign Co-sign Detail Recorded Client Recorded Date Recorded By Document 09/18/24 15:43 BKG DAEMON(3) [id number] 09/18/24 15:44 BKG DAEMON(4) Intake and Output - 24 Hour Total 09/18/24 15:04 thru 09/18/24 20:01 Intake Total 500 Output Total 80 Balance 420 Weight 114.2 kg Intake: IV 500 Output: Urine 80 Other: Urine Color Dark [place] Urine Appearance Cloudy Comment post cath Urinary Catheter Urinary Catheter Date of 09/18/24 Insertion [Straight] Time of insertion [Straight] 18:15 Falls Risk Assessment Ambulatory Aids Uses ambulatory device 09/18/24 15:49 Tubes/Lines W/no contributing factors 09/18/24 15:49 Gait Evaluation W/any additional score 09/18/24 15:49 Cognition Cognitive impairment 09/18/24 15:49 Fall Total Score 60 09/18/24 15:49 Level of Risk High Risk 09/18/24 15:49 Problems (Last Reviewed 03/15/24 @ 14:40 by Elliot Nunes) Stenosis of right vertebral artery (Acute) Acute alteration in mental status (Acute) Urinary tract infection associated with nephrostomy catheter (Acute) Complicated UTI (urinary tract infection) (Acute) Renal calculus, left (Chronic) Hydronephrosis of left kidney (Chronic) Altered mental status (Acute) HTN (hypertension) (Chronic) Hyperlipidemia (Chronic 10/24/04) v v v v v v v v v Sending and/or Receiving Nurses: Please use comment section below to note any information pertinent to the patient hand-off not included above. Information / Comments: Report received from: Galindo
[2024-09-18 21:04] LABS: MRSA PCR Negative (Negative)
[2024-09-18] MEDS: Polyethylene Glycol 3350 17 GM PACKET PO (21:38)
[2024-09-18] MEDS: Normal Saline Flush 10 ML SYR IVP (21:38)
[2024-09-18] MEDS: Metoprolol 12.5 MG TAB PO (21:39)
[2024-09-18] MEDS: Rivaroxaban 10 MG TABLET 20 MG PO (21:39)
[2024-09-18 21:51] LABS: Troponin I 9 ng/L (<or=76)
[2024-09-19] MEDS: Normal Saline 1,000 ML 125 ML IV ×2 (00:45→09:45)
[2024-09-19 03:46] VITALS: BP 150/85; PULSE 79; RESP 20; TEMP 36.2; O2SAT 92
[2024-09-19 06:42] LABS: HCT 37.3 % (40.0-50.0); HGB 11.7 g/dL (13.5-17.5); MCH 26.4 pg (27.0-33.0); MCHC 31.4 % (32.0-36.0); MCV 84 fL (80-95); MPV 8.8 fL (8.0-11.0); Platelet Count 122 10^3/uL (130-400); RBC 4.43 10^6/uL (4.36-5.78); RDW 16.8 % (11.8-14.1); RDW-SD 51.5 fL; WBC 6.04 10^3/uL (4.4-10.8)
[2024-09-19 07:21] VITALS: BP 155/82; PULSE 80; RESP 20; TEMP 36.6; O2SAT 95
[2024-09-19 07:33] LABS: ALT 14 U/L (16-63); AST 13 U/L (15-37); Albumin 2.7 g/dL (3.4-5.0); Alkaline Phosphatase 44 U/L (46-116); Anion Gap 5.9 mmol/L (3-11); BUN 23 mg/dL (7-18); Bilirubin, Total 1.2 mg/dL (0.2-1.0); CO2 29.1 mmol/L (21.0-32.0); Calcium 9.7 mg/dL (8.5-10.1); Chloride 106 mmol/L (98-107); Estimated GFR 59.63 (mL/min/1.73m2); Glucose 91 mg/dL (74-106); Magnesium 2.0 mg/dL (1.8-2.4); Potassium 3.9 mmol/L (3.5-5.1); Sodium 141 mmol/L (136-145); Total Protein 6.2 g/dL (6.4-8.2)
[2024-09-19] MEDS: Omeprazole 20 MG CAPCR 40 MG PO (08:30)
[2024-09-19] MEDS: CEFEPIME 2 GM in Normal Saline 100 ML IVPB ×3 (08:31→23:51)
[2024-09-19] MEDS: Metoprolol 12.5 MG TAB PO ×2 (08:31→20:57)
[2024-09-19] MEDS: Polyethylene Glycol 3350 17 GM PACKET PO ×2 (08:31→20:57)
[2024-09-19] MEDS: Docusate Sodium 100 MG CAP PO (08:31)
[2024-09-19] MEDS: Normal Saline Flush 10 ML SYR IVP ×2 (08:34→20:57)
--- NOTE | 2024-09-19 08:38 | PDOC.CMIN ---
Date of service: 09/19/24 Time of Service: 08:38 Care Management Initial Assmt Initial Assessment Reason for Hospitalization: Delirium, UTI Functional Status/Living Situation Patient Presentation: Raffy in bed with the HOB evaluated, watching bull riding on TV when CM met with him. He was quite pleasant and easy to engage in conversation.Raffy is admitted with hydronephrosis, with complicated UTI and delirium. He has been a resident at [facility] since 04/26/24. Prior to that he lived with his Oksana in their single family home in [facility]. Raffy currently requires a steady lift with maximum assistance for transfers. His last hospitalization, he required the use of a Hattie lift to transfer to a chair. Raffy may benefit from a PT eval to assess his current mobility and transfer needs. CM will follow. Town of Residence: [place] Significant Other/Family: [facility] Natural Supports: Reny Employment Status: Retired Instrumental Activities of Daily Living (ADLs): Requires support Medications Medication Management: No Issues/Barriers identified Physical Functioning/Mobility Assistive Device: Hattie, Wheelchair Advance Directives Advance Directives: Do you have an Advance Directive: Y 06/29/20, 09:11 AD On File at [facility]: Y 06/29/20, 09:11 Date Asked 09/18/24 09/18/24, 22:37 AD Date Reviewed 09/18/24 09/18/24, 16:00 COLST On File at [facility] No 09/18/24, 16:00 COLST Date Scanned Code Status Resuscitation Status Full Code Insurance Coverage/Financial Issues Insurance: Medicare Part A & B - [id number] [facility] - [id number] Care Team Visit Care Team Role Provider Type Erna Navas NP NURSE PRACTITIONER Edna Muniz APRN Primary Care Provider NURSE PRACTITIONER Nuno Smallwood MD Other Providers [facility] STAFF PHYSICIAN Andra Ashley Emergency Provider NURSE PRACTITIONER Ricardo Amaral Admit Provider NON-[facility] STAFF PHYSICIAN Attending Provider Discharge Anticipated Barriers to Discharge: None Identified Patient/Family Education Needs: Review discharge instructions, discuss Ask Me Three Transportation: Other ([facility] W[facility] van vs. EMS) Plan: Raffy will return to [facility] when medically cleared for discharge. Patient will follow up with community/facility providers and discharge plan of care as directed. Transportation will likely be [facility] W/[facility] van, unless mobility/cognition needs warrant EMS transfer. CM will follow. Social Determinants of Health Screening Will the Patient Participate in the Screening?: Unable to obtain Problems where you live: no known problems In the past 12 months, have you had to go without electric, gas, oil or water in your home?: no Has lack of transportation kept you from medical appointments or from doing things needed for daily living?: no Has anyone in your life made you feel unsafe or unsupported?: no How hard is it for you to pay for the very basics like food, housing, medical care, and heating? Would you say it is:: Not hard at all Do you want help finding or keeping work or a job?: I do not need or want help If for any reason you need help with day-to-day activities such as bathing, preparing meals, shopping, managing finances, etc., do you get the help you need?: I need a lot more help How often do you feel lonely or isolated from those around you?: Never Do you speak a language other than Burmese at home?: No Does the patient want assistance with any of the above?: No Health Related Social Needs Health related social needs: problems with daily activities (Z73.9) PFSH All Active Problems (Updated 09/19/24 @ 15:55 by Erna Navas NP) Discharge planning issues (Acute) Hyperparathyroidism (Acute) Stenosis of right vertebral artery (Chronic) Acute alteration in mental status (Acute) Urinary tract infection associated with nephrostomy catheter (Acute) Complicated UTI (urinary tract infection) (Acute) Renal calculus, left (Chronic) Hydronephrosis of left kidney (Chronic) Nail dystrophy (Acute) Yeast UTI (Acute) Confusion associated with infection (Acute) Confusion (Acute) Abnormal urinalysis (Acute) Pulmonary emboli (Chronic) Sepsis (Acute) Hematuria (Acute) Acute hypoxic respiratory failure (Acute) Edema of both lower extremities (Acute) Well-managed, with exercise/activity; b/l general .. trial compression and lasix Elevated parathyroid hormone (Acute) Osteoarthritis of right knee (Acute) Steroid injection: 03/04/24; 05/19/2023 Hypercalcemia (Acute) CKD (chronic kidney disease) stage 3, GFR 30-59 ml/min (Acute) Stage 3, 2022, with LALA (GFR <30!) 2' over-diures.. Hx stage 2-3 (2021) Edema of foot (Acute) Knee pain, bilateral (Acute) ? goop injection Onychomycosis (Acute) Lumbar spondylosis (Acute) Lumbar back pain (Acute) Lumbar adjacent segment disease with spondylolisthesis (Acute) roasterman (current) use of anticoagulants (Acute) Osteoarthritis of left knee (Acute) Steroid injection: 03/04/24; 05/19/2023; 12/07/2020 HTN (hypertension) (Chronic) Hyperlipidemia (Chronic 10/24/04) RISK 12% 11/2005; LDL goal 100 Need labs, [ ] Fall 201807/01/18 Medical History Pneumonia Leg edema Resolves with activity, qAM, 04/2022.. (Worsening, re-start furosemide, 10/2020) Renal calculus Hematuria: CT (01/09/23) vs. CT (04/27/2022):.. largest calculus in the left kidney has now migrated to the upper left ureter/UPJ level (prob responsible for hematuria)..no obvious dilatation of the left collecting system above this level..another calculus again noted in the left left kidney lower pole calyx (no changed position)..previously present 3 mm calculus in the bladder no longer seen and has most probably passed. 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 07/2021 Left knee pain Acute on chronic. Not a surgical candidate. Cane helping - may need training.. BPH w/o urinary obs/LUTS (02/15/11) nocturiaX1-2; INCR 3X 09/2012 Acute on chronic renal failure Acute exacerbation of congestive heart failure Hosp; resolved .. but with too much fluid restriction post hosp! Bakers cyst Rt, 4cm.. incidental finding on US DVT (deep venous thrombosis) New DVT, 02/2021. Xarelto started. Resolved, Eliquis D/C'd 07/2020 by Surg. C. 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 denies this stated that this was due to an interaction a year ago where having the masks on and he his hard of hearing they stated he had dementia which his and current PCP stated he does not. 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 Taylor started him on HCTZ 2005. High BP readings @ ophtho, urol . turns out to be 2' finesteride, Dr. Smallwood d/c'd .. will follow up in July 2018. 125/85 today, 06/2018, ik. Surgical History Hx of cataract removal with insertion of prosthetic lens 12/11/20 [place], [facility] Posterior subcapsular age-related cataract, right eye Nuclear sclerotic cataract of right eye S/P cholecystectomy (01/24/20) S/P ERCP Arthroscopy (02/10/84) in [place], Left knee Family History Son Age: 62 No problems noted. 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
--- NOTE | 2024-09-19 10:13 | W.PM.PROGNOT ---
Date of Service Date of service: 09/19/24 Time of Service: 10:13 Assessment and Plan Assessment and plan (1) Altered mental status: Status: Acute (2) Complicated UTI (urinary tract infection): Status: Acute (3) Hydronephrosis of left kidney: Status: Chronic Assessment and plan: With left nephrostomy tube in place which could be used if he has failure to have urine passed through his left ureter. Urology consultation if needed during his hospital stay. (4) Renal calculus, left: Status: Chronic Assessment and plan: Patient does have obstructing urinary calculi in his left system now with ureteral instrumentation discontinued and attempting not to use his nephrostomy tube which is diverting hydronephrosis. Follow-up urology as scheduled. (5) HTN (hypertension): Status: Chronic Assessment and plan: Continue outpatient medical therapy adjusting as needed. (6) Leg edema: Assessment and plan: Hold furosemide. Patient is on gentle IV hydration. 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 There is immediate collateral flow and he does not appear to have focal findings of an acute stroke. As his delirium clears this can be further assessed. (8) Hyperparathyroidism: Status: Acute Subjective Subjective Patient reports: no new complaints, feels better, tolerating liquids well, voiding w/o difficulty (incontinent urine) and afebrile; denies shortness of breath Objective Last Vital Signs Temp 36.6 C 09/19/24 07:21 Pulse 80 09/19/24 07:21 Resp 20 09/19/24 07:21 BP 155/82 H 09/19/24 07:21 Pulse Ox 95 09/19/24 07:21 Laboratory Results - last 24 hr 09/18/24 09/18/24 09/18/24 16:15 16:28 17:20 WBC 7.00 RBC 4.95 Hgb 13.0 L Hct 41.5 MCV 84 MCH 26.3 L MCHC 31.3 L RDW 16.5 H Plt Count 148 MPV 8.9 Immature Gran % 0.9 Neutrophils % 66.8 Lymphocytes % 16.9 Monocytes % 14.4 Eosinophils % 0.6 Basophils % 0.4 Nucleated RBC % 0.0 Absolute Neutrophils 4.68 Absolute Lymphocytes 1.18 L Absolute Monocytes 1.01 H Absolute Eosinophils 0.04 Absolute Basophils 0.03 PT 11.2 H INR 1.1 APTT 23.9 VBG pH 7.39 VBG pCO2 51 VBG pO2 39 VBG HCO3 31 H VBG Total CO2 28 VBG O2 Saturation 71 VBG Base Excess 6 H VBG Lactate 1.6 Sodium 141 Potassium 4.6 Chloride 103 Carbon Dioxide 31.8 Anion Gap 6.2 BUN 26 H Creatinine 1.4 H Est GFR (CKD-EPI 2020) 49.56 Glucose 104 Calcium 10.2 H Magnesium 2.3 Total Bilirubin 1.5 H AST 14 L ALT 13 L Alkaline Phosphatase 53 Troponin I 11 11 NT-Pro-B Natriuret Pep 2151 H Total Protein 7.1 Albumin 3.3 L TSH 0.87 Urine Color Yellow Urine Clarity Cloudy Urine pH 6.5 Ur Specific [place] 1.020 Urine Protein 100 H Urine Ketones Negative Urine Blood Large H Urine Nitrite Negative Urine Bilirubin Negative Urine Urobilinogen 0.2 Ur Leukocyte Esterase Large H Urine RBC >50 H Urine WBC >50 H Ur Epithelial Cells Not Applicable Urine Crystals Not Applicable Urine Bacteria Not Applicable Urine Mucus Not Applicable Ur Culture Indicated? Yes Urine Glucose Negative COVID-19 Source Nasopharynx SARS-CoV-2 (PCR) Negative Influenza Type A (PCR) Negative Influenza Type B (PCR) Negative RSV (PCR) Negative MRSA (TEM-PCR) 09/18/24 09/18/24 09/18/24 18:04 19:10 19:19 WBC RBC Hgb Hct MCV MCH MCHC RDW Plt Count MPV Immature Gran % Neutrophils % Lymphocytes % Monocytes % Eosinophils % Basophils % Nucleated RBC % Absolute Neutrophils Absolute Lymphocytes Absolute Monocytes Absolute Eosinophils Absolute Basophils PT INR APTT VBG pH VBG pCO2 VBG pO2 VBG HCO3 VBG Total CO2 VBG O2 Saturation VBG Base Excess VBG Lactate Sodium Potassium Chloride Carbon Dioxide Anion Gap BUN Creatinine Est GFR (CKD-EPI 2020) Glucose Calcium Magnesium Total Bilirubin AST ALT Alkaline Phosphatase Troponin I 9 NT-Pro-B Natriuret Pep Total Protein Albumin TSH Urine Color Yellow Urine Clarity Cloudy Urine pH 7.0 Ur Specific [place] 1.020 Urine Protein 100 H Urine Ketones Negative Urine Blood Large H Urine Nitrite Negative Urine Bilirubin Negative Urine Urobilinogen 0.2 Ur Leukocyte Esterase Moderate H Urine RBC >50 H Urine WBC >50 H Ur Epithelial Cells Not Applicable Urine Crystals Not Applicable Urine Bacteria Not Applicable Urine Mucus Not Applicable Ur Culture Indicated? No Urine Glucose Negative COVID-19 Source SARS-CoV-2 (PCR) Influenza Type A (PCR) Influenza Type B (PCR) RSV (PCR) MRSA (TEM-PCR) Negative 09/19/24 06:32 WBC 6.04 RBC 4.43 Hgb 11.7 L Hct 37.3 L MCV 84 MCH 26.4 L MCHC 31.4 L RDW 16.8 H Plt Count 122 L MPV 8.8 Immature Gran % Neutrophils % Lymphocytes % Monocytes % Eosinophils % Basophils % Nucleated RBC % Absolute Neutrophils Absolute Lymphocytes Absolute Monocytes Absolute Eosinophils Absolute Basophils PT INR APTT VBG pH VBG pCO2 VBG pO2 VBG HCO3 VBG Total CO2 VBG O2 Saturation VBG Base Excess VBG Lactate Sodium 141 Potassium 3.9 Chloride 106 Carbon Dioxide 29.1 Anion Gap 5.9 BUN 23 H Creatinine 1.2 Est GFR (CKD-EPI 2020) 59.63 Glucose 91 Calcium 9.7 Magnesium 2.0 Total Bilirubin 1.2 H AST 13 L ALT 14 L Alkaline Phosphatase 44 L Troponin I NT-Pro-B Natriuret Pep Total Protein 6.2 L Albumin 2.7 L TSH Urine Color Urine Clarity Urine pH Ur Specific [place] Urine Protein Urine Ketones Urine Blood Urine Nitrite Urine Bilirubin Urine Urobilinogen Ur Leukocyte Esterase Urine RBC Urine WBC Ur Epithelial Cells Urine Crystals Urine Bacteria Urine Mucus Ur Culture Indicated? Urine Glucose COVID-19 Source SARS-CoV-2 (PCR) Influenza Type A (PCR) Influenza Type B (PCR) RSV (PCR) MRSA (TEM-PCR)
--- NOTE | 2024-09-19 11:15 | PDOC.CMDIS ---
Date of service: 09/19/24 Time of Service: 11:15 Care Management Discharge SDOH Health Related Social Needs: Health related social needs daily activities
--- NOTE | 2024-09-19 11:16 | W.PM.DS.N ---
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 (8) Hyperparathyroidism: Status: Acute Discharge Plan Disposition Patient Disposition: Longterm Facility(SNF) Condition: Improving Discharge Details Reason For Visit: Delirium, UTI, Left hydronephrosis, CKD Admit Date/Time: 09/18/24 19:21 Admit Provider: Ricardo Amaral Attending Provider: Ricardo Amaral Primary Care Provider: Edna Muniz Home Meds and New Rx's Prescriptions: No Action cholecalciferol (vitamin D3) 1,250 mcg (50,000 unit) capsule 1,250 mcg PO QWEEK omeprazole 20 mg capsule,delayed release(DR/EC) 40 mg PO DAILY polyethylene glycol 3350 [Miralax] 17 gram/dose powder 17 g PO BID acetaminophen 500 mg capsule 1,000 mg PO BID calcitonin (salmon) 200 unit/actuation spray,non-aerosol 1 spray intranasal .QOD Rx Instructions: Administer in right nostril every other day and 1 spray in left nostril opposite days docusate sodium 100 mg capsule 100 mg PO DAILY furosemide [Lasix] 20 mg tablet 20 mg PO BID metoprolol tartrate 25 mg tablet 12.5 mg PO BID Patient Comments: Per pt. always takes this around 7550-1240 03/15/24-JW Xarelto 10 mg tablet 20 mg PO QPM Discharge Instructions Instructions: Urinary Tract Infection, Adult ED Additional Instructions: continue antibiotics as prescribed push fluids to stay well hydrated follow up with urology as planned. Referrals: Nuno Smallwood MD [ [facility] STAFF PHYSICIAN, Urology] Edna Muniz APRN [Primary Care Provider, Family Practice] Activity:: Activity as Tolerated Equipment/Supplies:: No Equipment Needed Diet:: As Tolerated Discharge Orders Discharge Orders: Discharge Order (Routine); Ordered 09/19/24 Ordered By: Erna Navas DS: Summary Quality:SDOH Health Related Social Needs: Health related social needs daily activities Exam Const General: cooperative, comfortable and no acute distress Nutritional Appearance: obese Orientation: alert, awake, oriented to person and oriented to place [facility] Head: normal to inspection, normocephalic and atraumatic Ears: hearing grossly normal bilaterally and external ears normal General nose exam: external nose normal Mouth: moist mucous membranes Eyes General: appearance normal, both eyes and all related structures Neck Neck: normal visual inspection Chest Chest: normal inspection of the chest Resp Effort & Inspection: normal respiratory effort Auscultation: clear to auscultation bilaterally Cardio Rate: regular rate GI Palpation: soft and nontender Other: Nephrostomy tube clamped and intact left flank area , dressing is clean dry and intact. Skin General skin exam: no rashes or lesions noted Neuro General: patient alert Extrem General: abnormal ROM (Flaccid bilateral lower extremities) and pedal edema (Trace edema) DS: Data Vitals/I&O Vitals and I&O: Vital Signs Temperature 36.6 C 09/19/24 07:21 Temperature Source Temporal Artery Scan 09/19/24 07:21 Pulse 80 09/19/24 07:21 Pulse Rhythm Regular 09/18/24 20:56 Pulse 84 09/18/24 20:01 Respiratory Rate 20 09/19/24 07:21 Respiratory Effort Normal 09/18/24 20:56 Respiratory Depth Normal 09/18/24 20:56 Blood Pressure 155/82 H 09/19/24 07:21 Blood Pressure Mean 106 09/19/24 07:21 Blood Pressure Position Sitting 09/18/24 15:44 Pulse Oximetry 95 09/19/24 07:21 Oxygen Delivery Method Room Air 09/19/24 07:21 Oxygen Flow Rate 0 09/19/24 07:21 Pain Level 0 09/18/24 20:56 Intake & Output 09/18/24 09/18/24 09/19/24 11:59 23:59 11:59 Intake Total 600 / 600 1070.833 / 1070.833 Output Total 80 / 80 Balance 520 / 520 1070.833 / 1070.833 Weight 114.2 kg 149.685 kg Intake: IV 600 / 600 1070.833 / 1070.833 Output: Urine 80 / 80 Other: Urine Color Dark Destiny [place] Urine Appearance Cloudy Comment post cath pT thought he had to urinate. A urinal was provided but pT did not end up urinating. Data Completed and Pending Labs on day of discharge: Labs from last 24 hours 09/19/24 09/19/24 09/18/24 21:00 06:32 19:19 WBC 6.04 RBC 4.43 Hgb 11.7 L Hct 37.3 L MCV 84 MCH 26.4 L MCHC 31.4 L RDW 16.8 H Plt Count 122 L MPV 8.8 Immature Gran % Neutrophils % Lymphocytes % Monocytes % Eosinophils % Basophils % Nucleated RBC % Absolute Neutrophils Absolute Lymphocytes Absolute Monocytes Absolute Eosinophils Absolute Basophils PT INR APTT VBG pH VBG pCO2 VBG pO2 VBG HCO3 VBG Total CO2 VBG O2 Saturation VBG Base Excess VBG Lactate Sodium 141 Potassium 3.9 Chloride 106 Carbon Dioxide 29.1 Anion Gap 5.9 BUN 23 H Creatinine 1.2 Est GFR (CKD-EPI 2020) 59.63 Glucose 91 Calcium 9.7 Magnesium 2.0 Total Bilirubin 1.2 H AST 13 L ALT 14 L Alkaline Phosphatase 44 L Troponin I NT-Pro-B Natriuret Pep Total Protein 6.2 L Albumin 2.7 L TSH Urine Color Urine Clarity Urine pH Ur Specific [place] Urine Protein Urine Ketones Urine Blood Urine Nitrite Urine Bilirubin Urine Urobilinogen Ur Leukocyte Esterase Urine RBC Urine WBC Ur Epithelial Cells Urine Crystals Urine Bacteria Urine Mucus Ur Culture Indicated? Urine Glucose Vancomycin Trough Pending COVID-19 Source SARS-CoV-2 (PCR) Influenza Type A (PCR) Influenza Type B (PCR) RSV (PCR) MRSA (TEM-PCR) Negative 09/18/24 09/18/24 09/18/24 19:10 18:04 17:20 WBC RBC Hgb Hct MCV MCH MCHC RDW Plt Count MPV Immature Gran % Neutrophils % Lymphocytes % Monocytes % Eosinophils % Basophils % Nucleated RBC % Absolute Neutrophils Absolute Lymphocytes Absolute Monocytes Absolute Eosinophils Absolute Basophils PT INR APTT VBG pH VBG pCO2 VBG pO2 VBG HCO3 VBG Total CO2 VBG O2 Saturation VBG Base Excess VBG Lactate Sodium Potassium Chloride Carbon Dioxide Anion Gap BUN Creatinine Est GFR (CKD-EPI 2020) Glucose Calcium Magnesium Total Bilirubin AST ALT Alkaline Phosphatase Troponin I 9 11 NT-Pro-B Natriuret Pep Total Protein Albumin TSH Urine Color Yellow Urine Clarity Cloudy Urine pH 7.0 Ur Specific [place] 1.020 Urine Protein 100 H Urine Ketones Negative Urine Blood Large H Urine Nitrite Negative Urine Bilirubin Negative Urine Urobilinogen 0.2 Ur Leukocyte Esterase Moderate H Urine RBC >50 H Urine WBC >50 H Ur Epithelial Cells Not Applicable Urine Crystals Not Applicable Urine Bacteria Not Applicable Urine Mucus Not Applicable Ur Culture Indicated? No Urine Glucose Negative Vancomycin Trough COVID-19 Source SARS-CoV-2 (PCR) Influenza Type A (PCR) Influenza Type B (PCR) RSV (PCR) MRSA (TEM-PCR) 09/18/24 09/18/24 16:28 16:15 WBC 7.00 RBC 4.95 Hgb 13.0 L Hct 41.5 MCV 84 MCH 26.3 L MCHC 31.3 L RDW 16.5 H Plt Count 148 MPV 8.9 Immature Gran % 0.9 Neutrophils % 66.8 Lymphocytes % 16.9 Monocytes % 14.4 Eosinophils % 0.6 Basophils % 0.4 Nucleated RBC % 0.0 Absolute Neutrophils 4.68 Absolute Lymphocytes 1.18 L Absolute Monocytes 1.01 H Absolute Eosinophils 0.04 Absolute Basophils 0.03 PT 11.2 H INR 1.1 APTT 23.9 VBG pH 7.39 VBG pCO2 51 VBG pO2 39 VBG HCO3 31 H VBG Total CO2 28 VBG O2 Saturation 71 VBG Base Excess 6 H VBG Lactate 1.6 Sodium 141 Potassium 4.6 Chloride 103 Carbon Dioxide 31.8 Anion Gap 6.2 BUN 26 H Creatinine 1.4 H Est GFR (CKD-EPI 2020) 49.56 Glucose 104 Calcium 10.2 H Magnesium 2.3 Total Bilirubin 1.5 H AST 14 L ALT 13 L Alkaline Phosphatase 53 Troponin I 11 NT-Pro-B Natriuret Pep 2151 H Total Protein 7.1 Albumin 3.3 L TSH 0.87 Urine Color Yellow Urine Clarity Cloudy Urine pH 6.5 Ur Specific [place] 1.020 Urine Protein 100 H Urine Ketones Negative Urine Blood Large H Urine Nitrite Negative Urine Bilirubin Negative Urine Urobilinogen 0.2 Ur Leukocyte Esterase Large H Urine RBC >50 H Urine WBC >50 H Ur Epithelial Cells Not Applicable Urine Crystals Not Applicable Urine Bacteria Not Applicable Urine Mucus Not Applicable Ur Culture Indicated? Yes Urine Glucose Negative Vancomycin Trough COVID-19 Source Nasopharynx SARS-CoV-2 (PCR) Negative Influenza Type A (PCR) Negative Influenza Type B (PCR) Negative RSV (PCR) Negative MRSA (TEM-PCR) 09/18/24 19:19 Urine - Urostomy Urine Culture - Pending 09/18/24 19:25 Blood Blood Culture - Pending 09/18/24 19:10 Blood Blood Culture - Pending 09/18/24 18:04 Urine - Left Urostomy Tube Urine Culture - Pending 09/18/24 16:15 Urine - Reflex from Ua Urine Culture - Pending Preliminary micro results at discharge 09/18/24 19:19 Urine - Urostomy Urine Culture - Pending 09/18/24 19:25 Blood Blood Culture - Pending 09/18/24 19:10 Blood Blood Culture - Pending 09/18/24 18:04 Urine - Left Urostomy Tube Urine Culture - Pending 09/18/24 16:15 Urine - Reflex from Ua Urine Culture - Pending [facility] All Active Problems (Updated 09/19/24 @ 10:19 by Erna Navas NP) Hyperparathyroidism (Acute) Stenosis of right vertebral artery (Chronic) Acute alteration in mental status (Acute) Urinary tract infection associated with nephrostomy catheter (Acute) Complicated UTI (urinary tract infection) (Acute) Renal calculus, left (Chronic) Hydronephrosis of left kidney (Chronic) Altered mental status (Acute) Nail dystrophy (Acute) Yeast UTI (Acute) Confusion associated with infection (Acute) Confusion (Acute) Abnormal urinalysis (Acute) Pulmonary emboli (Chronic) Sepsis (Acute) Hematuria (Acute) Acute hypoxic respiratory failure (Acute) Edema of both lower extremities (Acute) Well-managed, with exercise/activity; b/l general .. trial compression and lasix Elevated parathyroid hormone (Acute) Osteoarthritis of right knee (Acute) Steroid injection: 03/04/24; 05/19/2023 Hypercalcemia (Acute) CKD (chronic kidney disease) stage 3, GFR 30-59 ml/min (Acute) Stage 3, 2022, with LALA (GFR <30!) 2' over-diures.. Hx stage 2-3 (2021) Edema of foot (Acute) Knee pain, bilateral (Acute) ? goop injection Onychomycosis (Acute) Lumbar spondylosis (Acute) Lumbar back pain (Acute) Lumbar adjacent segment disease with spondylolisthesis (Acute) [facility] (current) use of anticoagulants (Acute) Osteoarthritis of left knee (Acute) Steroid injection: 03/04/24; 05/19/2023; 12/07/2020 HTN (hypertension) (Chronic) Hyperlipidemia (Chronic 10/24/04) RISK 12% 11/2005; LDL goal 100 Need labs, [ ] Fall 201807/01/18 Medical History Pneumonia Leg edema Resolves with activity, qAM, 04/2022.. (Worsening, re-start furosemide, 10/2020) Renal calculus Hematuria: CT (01/09/23) vs. CT (04/27/2022):.. largest calculus in the left kidney has now migrated to the upper left ureter/UPJ level (prob responsible for hematuria)..no obvious dilatation of the left collecting system above this level..another calculus again noted in the left left kidney lower pole calyx (no changed position)..previously present 3 mm calculus in the bladder no longer seen and has most probably passed. 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 07/2021 Left knee pain Acute on chronic. Not a surgical candidate. Cane helping - may need training.. BPH w/o urinary obs/LUTS (02/15/11) nocturiaX1-2; INCR 3X 09/2012 Acute on chronic renal failure Acute exacerbation of congestive heart failure Hosp; resolved .. but with too much fluid restriction post hosp! Bakers cyst Rt, 4cm.. incidental finding on US DVT (deep venous thrombosis) New DVT, 02/2021. Xarelto started. Resolved, Eliquis D/C'd 07/2020 by Surg. C. 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 denies this stated that this was due to an interaction a year ago where having the masks on and he his hard of hearing they stated he had dementia which his and current PCP stated he does not. 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 Taylor started him on HCTZ 2005. High BP readings @ ophtho, urol . turns out to be 2' finesteride, Dr. Smallwood d/day [place]. will follow up in July 2018. 125/85 today, 06/2018, ik. Surgical History Hx of cataract removal with insertion of prosthetic lens 12/11/20 [place], [facility] Posterior subcapsular age-related cataract, right eye Nuclear sclerotic cataract of right eye S/P cholecystectomy (01/24/20) S/P ERCP Arthroscopy (02/10/84) in [place], Left knee Family History Son Age: 62 No problems noted. 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
--- NOTE | 2024-09-19 11:34 | PGE_ITS ---
Date of Service Date of service: 09/19/24 Time of Service: 11:35 Assessment and Plan Assessment and plan (1) Altered mental status: Status: Resolved Assessment and plan: Resolved and now at baseline Suspect infectious encephalopathy secondary to UTI (2) Complicated UTI (urinary tract infection): Status: Acute Assessment and plan: Patient has left hydronephrosis with nephrostomy tube diverting now clamped attempting to have the patient urinate through his bladder. He is incontinent of urine with no Ng. Urine culture pending Continue cefepime and vancomycin day 2 while cultures pending (3) Hydronephrosis of left kidney: Status: Chronic Assessment and plan: With left nephrostomy tube in place which could be used if he has failure to have urine passed through his left ureter. Urology consultation if needed during his hospital stay. (4) Renal calculus, left: Status: Chronic Assessment and plan: Patient does have obstructing urinary calculi in his left system now with ureteral instrumentation discontinued and attempting not to use his nephrostomy tube which is diverting hydronephrosis. Follow-up urology as scheduled. (5) HTN (hypertension): Status: Chronic Assessment and plan: Continue outpatient medical therapy adjusting as needed. (6) Leg edema: Assessment and plan: Continue to hold furosemide, monitor fluid volume status closely. 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 once urine cultures become available discussed with DR Boyd Subjective Subjective Patient reports: no new complaints, feels better, tolerating liquids well and af ebrile; denies voiding w/o difficulty (incontinent of urine) or shortness of breath Exam Const General: cooperative, comfortable and no acute distress Orientation: alert, awake, oriented to person and oriented to place (poor historian, states now at baseline) [facility] Head: normal to inspection and normocephalic Ears: external ears normal General nose exam: external nose normal Mouth: moist mucous membranes Eyes General: appearance normal, both eyes and all related structures Neck Neck: normal visual inspection Chest Chest: normal inspection of the chest Resp Effort & Inspection: normal respiratory effort Auscultation: clear to auscultation bilaterally Cardio Rate: regular rate GI Inspection: obesity Palpation: soft Other: Nephrostomy tube clamped with dressing dry and intact no surrounding erythema no drainage on dressing Skin General skin exam: no rashes or lesions noted Neuro General: patient alert and patient awake Extrem General: edema (Trace bilateral lower), limp (Bilateral lower) and muscle atrophy Objective Last Vital Signs Temp 36.6 C 09/19/24 07:21 Pulse 80 09/19/24 07:21 Resp 20 09/19/24 07:21 BP 155/82 H 09/19/24 07:21 Pulse Ox 95 09/19/24 07:21 Laboratory Results - last 24 hr 09/18/24 09/18/24 09/18/24 16:15 16:28 17:20 WBC 7.00 RBC 4.95 Hgb 13.0 L Hct 41.5 MCV 84 MCH 26.3 L MCHC 31.3 L RDW 16.5 H Plt Count 148 MPV 8.9 Immature Gran % 0.9 Neutrophils % 66.8 Lymphocytes % 16.9 Monocytes % 14.4 Eosinophils % 0.6 Basophils % 0.4 Nucleated RBC % 0.0 Absolute Neutrophils 4.68 Absolute Lymphocytes 1.18 L Absolute Monocytes 1.01 H Absolute Eosinophils 0.04 Absolute Basophils 0.03 PT 11.2 H INR 1.1 APTT 23.9 VBG pH 7.39 VBG pCO2 51 VBG pO2 39 VBG HCO3 31 H VBG Total CO2 28 VBG O2 Saturation 71 VBG Base Excess 6 H VBG Lactate 1.6 Sodium 141 Potassium 4.6 Chloride 103 Carbon Dioxide 31.8 Anion Gap 6.2 BUN 26 H Creatinine 1.4 H Est GFR (CKD-EPI 2020) 49.56 Glucose 104 Calcium 10.2 H Magnesium 2.3 Total Bilirubin 1.5 H AST 14 L ALT 13 L Alkaline Phosphatase 53 Troponin I 11 11 NT-Pro-B Natriuret Pep 2151 H Total Protein 7.1 Albumin 3.3 L TSH 0.87 Urine Color Yellow Urine Clarity Cloudy Urine pH 6.5 Ur Specific [place] 1.020 Urine Protein 100 H Urine Ketones Negative Urine Blood Large H Urine Nitrite Negative Urine Bilirubin Negative Urine Urobilinogen 0.2 Ur Leukocyte Esterase Large H Urine RBC >50 H Urine WBC >50 H Ur Epithelial Cells Not Applicable Urine Crystals Not Applicable Urine Bacteria Not Applicable Urine Mucus Not Applicable Ur Culture Indicated? Yes Urine Glucose Negative COVID-19 Source Nasopharynx SARS-CoV-2 (PCR) Negative Influenza Type A (PCR) Negative Influenza Type B (PCR) Negative RSV (PCR) Negative MRSA (TEM-PCR) 09/18/24 09/18/24 09/18/24 18:04 19:10 19:19 WBC RBC Hgb Hct MCV MCH MCHC RDW Plt Count MPV Immature Gran % Neutrophils % Lymphocytes % Monocytes % Eosinophils % Basophils % Nucleated RBC % Absolute Neutrophils Absolute Lymphocytes Absolute Monocytes Absolute Eosinophils Absolute Basophils PT INR APTT VBG pH VBG pCO2 VBG pO2 VBG HCO3 VBG Total CO2 VBG O2 Saturation VBG Base Excess VBG Lactate Sodium Potassium Chloride Carbon Dioxide Anion Gap BUN Creatinine Est GFR (CKD-EPI 2020) Glucose Calcium Magnesium Total Bilirubin AST ALT Alkaline Phosphatase Troponin I 9 NT-Pro-B Natriuret Pep Total Protein Albumin TSH Urine Color Yellow Urine Clarity Cloudy Urine pH 7.0 Ur Specific [place] 1.020 Urine Protein 100 H Urine Ketones Negative Urine Blood Large H Urine Nitrite Negative Urine Bilirubin Negative Urine Urobilinogen 0.2 Ur Leukocyte Esterase Moderate H Urine RBC >50 H Urine WBC >50 H Ur Epithelial Cells Not Applicable Urine Crystals Not Applicable Urine Bacteria Not Applicable Urine Mucus Not Applicable Ur Culture Indicated? No Urine Glucose Negative COVID-19 Source SARS-CoV-2 (PCR) Influenza Type A (PCR) Influenza Type B (PCR) RSV (PCR) MRSA (TEM-PCR) Negative 09/19/24 06:32 WBC 6.04 RBC 4.43 Hgb 11.7 L Hct 37.3 L MCV 84 MCH 26.4 L MCHC 31.4 L RDW 16.8 H Plt Count 122 L MPV 8.8 Immature Gran % Neutrophils % Lymphocytes % Monocytes % Eosinophils % Basophils % Nucleated RBC % Absolute Neutrophils Absolute Lymphocytes Absolute Monocytes Absolute Eosinophils Absolute Basophils PT INR APTT VBG pH VBG pCO2 VBG pO2 VBG HCO3 VBG Total CO2 VBG O2 Saturation VBG Base Excess VBG Lactate Sodium 141 Potassium 3.9 Chloride 106 Carbon Dioxide 29.1 Anion Gap 5.9 BUN 23 H Creatinine 1.2 Est GFR (CKD-EPI 2020) 59.63 Glucose 91 Calcium 9.7 Magnesium 2.0 Total Bilirubin 1.2 H AST 13 L ALT 14 L Alkaline Phosphatase 44 L Troponin I NT-Pro-B Natriuret Pep Total Protein 6.2 L Albumin 2.7 L TSH Urine Color Urine Clarity Urine pH Ur Specific [place] Urine Protein Urine Ketones Urine Blood Urine Nitrite Urine Bilirubin Urine Urobilinogen Ur Leukocyte Esterase Urine RBC Urine WBC Ur Epithelial Cells Urine Crystals Urine Bacteria Urine Mucus Ur Culture Indicated? Urine Glucose COVID-19 Source SARS-CoV-2 (PCR) Influenza Type A (PCR) Influenza Type B (PCR) RSV (PCR) MRSA (TEM-PCR) Time Spent with Patient Time Spent with Patient: 35-49 minutes Time was spent: preparing to see the patient(eg.review tests), obtaining and/or reviewing separately otained hiistory, ordering medications,tests, procedures, referring, communicating with other health skin care specialist and indepentently interpreting results
[2024-09-19] MEDS: Rivaroxaban 10 MG TABLET 20 MG PO (16:35)
[2024-09-19 19:23] VITALS: BP 154/80; PULSE 78; RESP 18; TEMP 36.3; O2SAT 94
[2024-09-19 21:34] LABS: Vancomycin, Trough 9.0 ug/mL (10.0-20.0)
[2024-09-19] MEDS: VANCOMYCIN/WATER (PEG) 1.25 GM/250 ML BAG IV (21:48)
[2024-09-19] MEDS: Lactated Ringers 1,000 ML 100 ML IV (21:54)
[2024-09-20 06:34] LABS: Abs Immature Grans 0.05 10^3/uL (0.0-0.06); HCT 36.7 % (40.0-50.0); HGB 11.4 g/dL (13.5-17.5); Immature Grans % 0.9 %; MCH 26.1 pg (27.0-33.0); MCHC 31.1 % (32.0-36.0); MCV 84 fL (80-95); MPV 9.4 fL (8.0-11.0); Platelet Count 126 10^3/uL (130-400); RBC 4.37 10^6/uL (4.36-5.78); RDW 16.3 % (11.8-14.1); RDW-SD 50.1 fL; WBC 5.53 10^3/uL (4.4-10.8)
[2024-09-20 06:46] LABS: Anion Gap 5.2 mmol/L (3-11); BUN 22 mg/dL (7-18); CO2 27.8 mmol/L (21.0-32.0); Calcium 9.5 mg/dL (8.5-10.1); Chloride 106 mmol/L (98-107); Estimated GFR 74.21 (mL/min/1.73m2); Glucose 103 mg/dL (74-106); Magnesium 2.1 mg/dL (1.8-2.4); Potassium 3.9 mmol/L (3.5-5.1); Sodium 139 mmol/L (136-145)
[2024-09-20 07:13] VITALS: BP 139/114; PULSE 68; RESP 17; TEMP 36.3; O2SAT 95
[2024-09-20 07:39] VITALS: BP 160/103
[2024-09-20 07:44] VITALS: BP 150/100
[2024-09-20] MEDS: CEFEPIME 2 GM in Normal Saline 100 ML IVPB (08:16)
[2024-09-20] MEDS: Omeprazole 20 MG CAPCR 40 MG PO (08:20)
[2024-09-20] MEDS: Metoprolol 12.5 MG TAB PO (08:20)
[2024-09-20] MEDS: Docusate Sodium 100 MG CAP PO (08:20)
[2024-09-20] MEDS: Polyethylene Glycol 3350 17 GM PACKET PO (08:20)
[2024-09-20] MEDS: Normal Saline Flush 10 ML SYR IVP (08:21)
--- NOTE | 2024-09-20 12:34 | DSE_ITS ---
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 Initial evaluation revealed left hydronephrosis with a nephrostomy tube that had been clamped in an attempt to encourage bladder voiding. The patient was incontinent of urine without a Ng catheter. Urinalysis showed pyuria, hematuria, and proteinuria; urine culture was sent and results were pending at discharge. The patient was empirically started on cefepime and vancomycin (day 2 at discharge) and changed to oral cefpodoxime on discharge. On review of imaging and ED records, it was determined the nephrostomy tube should not remain clamped. Nursing was notified to unclamp the tube and attach a drainage bag. Urology at [facility] was contacted to confirm this plan, and outpatient follow-up with urology was recommended as previously arranged. Renal function improved slightly during admission (creatinine decreased from 1.4 to 1.2). Blood cultures remained negative to date. The patient remained hemodynamically stable and afebrile, with mental status returning to baseline per his . Bilateral lower extremity edema was noted; furosemide was held during hospitalization, with gentle IV hydration provided (1 L total). Plan to reassess diuretics as an outpatient. Hypertension management continued on home regimen. No acute neurological changes were noted. Right vertebral artery stenosis remains a chronic finding for outpatient follow-up. The patient was medically stable for discharge back to [facility][1]. Pertinent Results Laboratory Trends: * WBC: 7.0 on admission 5.53 today * Hgb: 13.0 on admission 11.4 today * Plt: 148 on admission 126 today * Creatinine: 1.4 on admission 1.0 today * Albumin: 3.3 on admission 2.7 on 09/19 * Total bilirubin: 1.5 on admission 1.2 today Urinalysis (09/18/24): * Cloudy, protein 100 mg/dL, large leukocyte esterase, large blood, >50 WBC/hpf, >50 RBC/hpf * Nitrite negative Urine Culture (09/18/24): * Multiple organisms present; likely contaminated specimen or catheter biofilm * Urine recollected just prior to discharge Microbiology: * COVID-19 PCR: Negative * Influenza A/B PCR: Negative * RSV PCR: Negative * MRSA screen: Negative Physical Exam on Discharge * General: Comfortable, alert, cooperative, no acute distress. * Neuro: Oriented to person and place; baseline per . * Respiratory: Clear to auscultation bilaterally, normal effort. * Cardiac: Regular rate and rhythm. * Abdomen: Soft, obese. * : Left nephrostomy tube draining to bag, dressing dry and intact, no erythema or drainage. * Extremities: Trace bilateral lower extremity edema; muscle atrophy present. * Skin: No rashes or lesions. Discharge Medications (Home medication list continued unless otherwise specified; doses per outpatient regimen) * Continue outpatient antihypertensives * Continue rivaroxaban * Start cephalexin 500 mg BID x 5d * Hold furosemide until reassessed Discharge Instructions * Follow-Up: * Urology as previously scheduled for evaluation of hydronephrosis, nephrostomy tube management, and left renal calculi * Primary care for ongoing management of hypertension, edema, and chronic conditions * Nephrostomy Tube Care: * Keep drainage bag in place; do not clamp tube unless directed by urology * Monitor site for redness, swelling, or drainage * Monitoring: * Watch for fever, chills, worsening confusion, flank pain, or decreased urine output * Return to ED if symptoms worsen Condition on Discharge: Stable Disposition: Return to [facility] Meds and New Rx's Prescriptions: New cephalexin 500 mg capsule 500 mg PO BID Qty: 10 0RF Continued cholecalciferol (vitamin D3) 1,250 mcg (50,000 unit) capsule 1,250 mcg PO QWEEK omeprazole 20 mg capsule,delayed release(DR/EC) 40 mg PO DAILY polyethylene glycol 3350 [Miralax] 17 gram/dose powder 17 g PO BID acetaminophen 500 mg capsule 1,000 mg PO BID calcitonin (salmon) 200 unit/actuation spray,non-aerosol 1 spray intranasal .QOD Rx Instructions: Administer in right nostril every other day and 1 spray in left nostril opposite days docusate sodium 100 mg capsule 100 mg PO DAILY furosemide [Lasix] 20 mg tablet 20 mg PO BID metoprolol tartrate 25 mg tablet 12.5 mg PO BID Patient Comments: Per pt. always takes this around [id number] 03/15/24- Xarelto 10 mg tablet 20 mg PO QPM Discharge Instructions Instructions: Urinary Tract Infection, Adult ED Additional Instructions: Nephrostomy Tube * Do NOT clamp the tube unless directly instructed by urology. * Keep connected to a drainage bag at all times. * Ensure tubing is not kinked and bag remains below kidney level. * Empty and measure output each shift; document amount and character. * Monitor site for redness, swelling, drainage, or foul odor ? report changes promptly. Urine Culture * Last urine culture grew multiple organisms ? likely contamination or catheter biofilm. * Recollected a clean urine sample and sent for culture. Antibiotics * Start Cephalexin 500 mg BID x 5 d or until final culture/sensitivity results available and reviewed by provider. * Document any new rash, diarrhea, or allergic reaction symptoms. Monitoring Report immediately if patient develops: * Fever or chills * Worsening confusion * Flank or abdominal pain * Decreased urine output or change in urine color/odor * Signs of sepsis Other Care * Hold furosemide until cleared by provider. * Continue home antihypertensive regimen and rivaroxaban. * Encourage oral fluid intake as tolerated. * Monitor for worsening edema; notify provider if significantly increased. Follow-Up * Outpatient urology appointment as previously scheduled. * Primary care follow-up for chronic conditions and blood pressure management. Referrals: Nuno Smallwood MD [ [facility] STAFF PHYSICIAN, Urology] Edna Muniz APRN [Primary Care Provider, [facility]] Activity:: Activity as Tolerated Equipment/Supplies:: No Equipment Needed Diet:: As Tolerated Discharge Orders Discharge Orders: Discharge Order (Routine); Ordered 09/20/24 Ordered By: Amita Maddox DS: Summary Time Spent with Patient providing and/or coordinating discharge services: Greater than 30 minutes Status at Discharge Functional status at discharge: wheelchair bound Overall status at discharge: patient is back to baseline Mental Status: mental status grossly normal Speech and Movement: speech and movement normal Mood: congruent mood Affect: normal affect Quality:SDOH Health Related Social Needs: Health related social needs daily activities Exam Narrative Exam Narrative: General: Comfortable, alert, cooperative, no acute distress. * Neuro: Oriented to person and place; baseline per . * Respiratory: Clear to auscultation bilaterally, normal effort. * Cardiac: Regular rate and rhythm. * Abdomen: Soft, obese. * : Left nephrostomy tube draining to bag, dressing dry and intact, no erythema or drainage. * Extremities: Trace bilateral lower extremity edema; muscle atrophy present. * Skin: No rashes or lesions. Psych Mental Status: mental status grossly normal Speech and Movement: speech and movement normal Mood: congruent mood Affect: normal affect DS: Data Vitals/I&O Vitals and I&O: Vital Signs Temperature 36.3 C L 08/11/25 07:13 Temperature Source Temporal Artery Scan 09/20/24 07:13 Pulse 68 09/20/24 07:13 Pulse Rhythm Regular 09/18/24 20:56 Pulse 84 09/18/24 20:01 Respiratory Rate 17 09/20/24 07:13 Respiratory Effort Normal 09/18/24 20:56 Respiratory Depth Normal 09/18/24 20:56 Blood Pressure 150/100 H 09/20/24 07:44 Blood Pressure Mean 116 09/20/24 07:44 Blood Pressure Position Sitting 09/18/24 15:44 Pulse Oximetry 95 09/20/24 07:13 Oxygen Delivery Method Room Air 09/20/24 07:13 Oxygen Flow Rate 0 09/20/24 07:13 Pain Level 0 09/20/24 07:13 Intake & Output 09/19/24 09/20/24 09/20/24 23:59 11:59 23:59 Intake Total 1700.0 / 2770.833 2312.5 / 2312.5 Output Total 375 / 375 Balance 1325.0 / 2395.833 2312.5 / 2312.5 Weight 149.6 kg Intake: IV 1100.0 / 2170.833 1662.5 / 1662.5 Oral 600 / 600 200 / 200 Injectate 450 / 450 Left Posterior 450 / 450 Output: Urine 375 / 375 Other: Urine Color Yellow Urine Appearance Clear Comment urostomy Data Completed and Pending Labs on day of discharge: Labs from last 24 hours 09/20/24 09/20/24 09/19/24 05:50 05:35 21:00 WBC 5.53 RBC 4.37 Hgb 11.4 L Hct 36.7 L MCV 84 MCH 26.1 L MCHC 31.1 L RDW 16.3 H Plt Count 126 L MPV 9.4 Immature Gran % 0.9 Neutrophils % 57.3 Lymphocytes % 24.1 Monocytes % 13.2 Eosinophils % 3.8 Basophils % 0.7 Nucleated RBC % 0.0 Absolute Neutrophils 3.17 Absolute Lymphocytes 1.33 Absolute Monocytes 0.73 Absolute Eosinophils 0.21 Absolute Basophils 0.04 Sodium 139 Potassium 3.9 Chloride 106 Carbon Dioxide 27.8 Anion Gap 5.2 BUN 22 H Creatinine 1.0 Est GFR (CKD-EPI 2020) 74.21 Glucose 103 Calcium 9.5 Magnesium 2.1 Cancelled Vancomycin Trough 9.0 L Preliminary micro results at discharge 09/18/24 19:19 Urine - Urostomy Urine Culture - Preliminary Gram positive rama, mixed 09/18/24 18:04 Urine - Left Urostomy Tube Urine Culture - Preliminary 09/18/24 16:15 Urine - Reflex from Ua Urine Culture - Preliminary Gram positive rama, mixed Gram negative alan 09/18/24 19:10 Blood Blood Culture - Preliminary NO GROWTH 24 HOURS 09/18/24 19:25 Blood Blood Culture - Preliminary NO GROWTH 24 HOURS PFSH All Active Problems (Updated 09/19/24 @ 15:55 by Erna Navas NP) Discharge planning issues (Acute) Hyperparathyroidism (Acute) Stenosis of right vertebral artery (Chronic) Acute alteration in mental status (Acute) Urinary tract infection associated with nephrostomy catheter (Acute) Complicated UTI (urinary tract infection) (Acute) Renal calculus, left (Chronic) Hydronephrosis of left kidney (Chronic) Nail dystrophy (Acute) Yeast UTI (Acute) Confusion associated with infection (Acute) Confusion (Acute) Abnormal urinalysis (Acute) Pulmonary emboli (Chronic) Sepsis (Acute) Hematuria (Acute) Acute hypoxic respiratory failure (Acute) Edema of both lower extremities (Acute) Well-managed, with exercise/activity; b/l general .. trial compression and lasix Elevated parathyroid hormone (Acute) Osteoarthritis of right knee (Acute) Steroid injection: 03/04/24; 05/19/2023 Hypercalcemia (Acute) CKD (chronic kidney disease) stage 3, GFR 30-59 ml/min (Acute) Stage 3, 2022, with LALA (GFR <30!) 2' over-diures.. Hx stage 2-3 (2021) Edema of foot (Acute) Knee pain, bilateral (Acute) ? 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 (Worsening, re-start furosemide, 10/2020) Renal calculus Hematuria: CT (01/09/23) vs. CT (04/27/2022):.. largest calculus in the left kidney has now migrated to the upper left ureter/UPJ level (prob responsible for hematuria)..no obvious dilatation of the left collecting system above this level..another calculus again noted in the left left kidney lower pole calyx (no changed position)..previously present 3 mm calculus in the bladder no longer seen and has most probably passed. 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 07/2021 Left knee pain Acute on chronic. Not a surgical candidate. Cane helping - may need training.. BPH w/o urinary obs/LUTS (02/15/11) nocturiaX1-2; INCR 3X 09/2012 Acute on chronic renal failure Acute exacerbation of congestive heart failure Hosp; resolved .. but with too much fluid restriction post hosp! Bakers cyst Rt, 4cm.. incidental finding on US DVT (deep venous thrombosis) New DVT, 02/2021. Xarelto started. Resolved, Cinda D/C'[place] 07/2020 by Surg. C. 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 denies this stated that this was due to an interaction a year ago where having the masks on and he his hard of hearing they stated he had dementia which his and current PCP stated he does not. 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 Taylor started him on HCTZ 2005. High BP readings @ ophtho, urol . turns out to be 2' finesteride, Dr. Smallwood d/c'd .. will follow up in July 2018. 125/85 today, 06/2018, ik. Surgical History Hx of cataract removal with insertion of prosthetic lens 12/11/20 [place], [facility] Posterior subcapsular age-related cataract, right eye Nuclear sclerotic cataract of right eye S/P cholecystectomy (01/24/20) S/P ERCP Arthroscopy (02/10/84) in [place], Left knee Family History Son Age: 62 No problems noted. 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
--- NOTE | 2024-09-20 12:45 | CMDISCH_ITS ---
Date of service: 09/20/24 Time of Service: 12:45 LACE Index Scoring Tool Questions: Length of Stay (in days): 2 Was the patient admitted via the E.D.?: Yes Comorbidities: Congestive Heart Failure and Liver or Renal Disease E.D. Visits: 3 Answers: Total Score: 13 Risk of Readmission: High Risk Care Management Discharge Plan Reason for Hospitalization: UTI with altered mental status Discharge Plan: Raffy is being discharged today back to the [facility] where he lives. He will f/u with the facility provider and also with urology. Raffy will transport via [facility] wheel chair van. Patient/Family Education Needs: Review of discharge instructions, activity, limitations, and discuss Ask me 3. SDOH Health Related Social Needs: Health related social needs daily activities
--- NOTE | 2024-09-20 14:37 | W.SUR.HO ---
Registration Status: ADM IN Primary Language: Preferred Language: Italian v v v v v v v v v Sending and/or Receiving Nurses: Please use comment section below to note any information pertinent to the patient hand-off not included above. Information / Comments: Report received from: Active Medications Generic Name Dose Route Start Last Admin Trade Name Freq PRN Reason Stop Dose Admin Acetaminophen 650 mg 09/18/24 20:45 Acetaminophen 325 Mg Tab PO Q4H PRN PRN Al Hydrox/Mg Hydrox/Simethicone 30 ml 09/18/24 20:45 Mylanta Suspension 30 Ml Cup PO Q2H PRN PRN Cholecalciferol 5,000 units 09/24/24 09:00 Cholecalciferol (Vitamin D3) 1,000 Unit Tab PO Fr PIPER Docusate Sodium 100 mg 09/19/24 08:30 09/20/24 08:20 Docusate Sodium 100 Mg Cap PO 100 mg DAILY PIPER Administration Vancomycin/PEG/NADA/Lysine/Water 1.25 gm in 250 mls @ 167.007 mls/hr 09/19/24 22:00 09/20/24 10:43 Vancocin Injection IV Infused Q24H PIPER Infusion Cefepime HCl 2 gm/ Sodium 100 mls @ 200 mls/hr 09/19/24 16:00 09/20/24 10:43 Chloride IVPB Infused Q8H PIPER Infusion IV Miscellaneous Supplies 1 each 09/18/24 20:45 Iv Access IV DIRECTED PIPER Magnesium Hydroxide 30 ml 09/18/24 20:45 Milk Of Magnesia 30 Ml Cup PO DAILY PRN PRN Metoprolol Tartrate 12.5 mg 09/18/24 20:45 09/20/24 08:20 Metoprolol 12.5 Mg Tab PO 12.5 mg BID PIPER Administration Omeprazole 40 mg 09/21/24 07:30 Omeprazole 20 Mg Capcr PO DAILY@0730 PIPER Polyethylene Glycol 17 gm 09/18/24 21:00 09/20/24 08:20 Polyethylene Glycol 3350 17 Gm Packet PO 17 gm BID PIPER Administration Rivaroxaban 20 mg 09/18/24 21:00 09/19/24 16:35 Rivaroxaban 10 Mg Tablet PO 20 mg 1700 PIPER Administration Sodium Chloride 0 ml 09/18/24 20:45 Normal Saline Flush 10 Ml Syr IVP PRN PRN Sodium Chloride 0 ml 09/18/24 20:45 09/20/24 08:21 Normal Saline Flush 10 Ml Syr IVP 10 ml BID PIPER Administration Sodium Chloride 0 ml 09/18/24 20:45 Normal Saline 10 Ml Vial IJ DIRECTED PRN Respiratory Pulse Oximetry 95 Pulse Oximetry 94 Oxygen Flow Rate 0 Oxygen Flow Rate 0 amlodipine Adverse Reaction (Mild, Verified 09/18/24 15:16) nightmares/restless sleep hydrochlorothiazide Adverse Reaction (Mild, Verified 09/18/24 15:16) possible Erectile dysfunction finasteride Adverse Reaction (Verified 09/18/24 15:16) Hypertension Resuscitation Status Full Code Implants Device Implant Date Quantity Site IOL [id number] 12/11/20 1 Right Eye Lot/Batch Number Serial Number [id number] Catalog Number [id number] User Eduar Abdul MD Comment Donation Id Number Manufactured Date Expiration Date 07/25/24 Source [employer] Device Identifier Version/Model Number Learning Technologist GMDN Pref Term Name MRI Safety Label Contains Natural Rubber Latex or Dry Natural Rubber Device Implant Date Quantity Site LENS TANVI 22.0 [id number] 04/19/22 1 Left Eye Lot/Batch Number Serial Number [id number] Catalog Number [id number] User Eduar Abdul MD Comment Donation Id Number Manufactured Date Expiration Date 07/30/25 Source [employer] Device Identifier Version/Model Number Learning Technologist GMDN Pref Term Name MRI Safety Label Contains Natural Rubber Latex or Dry Natural Rubber ENDOSC POLYPECTOMY OF LG INTEST (11/13/05) Resection of Gallbladder, Open Approach (01/24/20) [Endoscopic] polypectomy of rectum (09/21/10) 09/20/24 07:13 09/20/24 07:39 09/20/24 07:44 Temperature 36.3 C L Temperature Source Temporal Artery Scan Pulse 68 Respiratory Rate 17 Blood Pressure 139/114 H 160/103 H 150/100 H Blood Pressure Mean 122 122 116 Pulse Oximetry 95 Oxygen Delivery Method Room Air Oxygen Flow Rate 0 Pain Level 0 v v v v v v v v v Sending and/or Receiving Nurses: Please use comment section below to note any information pertinent to the patient hand-off not included above. Information / Comments: Report received from: Dyana Gates RN, at [facility] gave report at 1437. The patient had a bowel movement prior to discharge. His vital signare stable and RN will continue to monitor.
[2024-09-20] MEDS: Bisacodyl 10 MG SUPP PR (15:05)
== END 2024-09-20 16:58 | disposition skilled nursing facility (03) | DRG 699 ==
LOC: ER 19:24 → MS 22:37
PROVIDERS: Nurse Practitioner Acute Care; Admitting Provider Family Medicine; Emergency Provider Nurse Practitioner Family; PCP Nurse Practitioner Family; Responsible Provider Nurse Practitioner Family; Visit Provider Family Medicine
DX: I65.01 Occlusion and stenosis of right vertebral artery; T83.512A Infection and inflammatory reaction due to nephrostomy catheter, initial encounter; Z79.899 Other long term (current) drug therapy; N18.30 Chronic kidney disease, stage 3 unspecified; I13.0 Hypertensive heart and chronic kidney disease with heart failure and stage 1 through stage 4 chronic kidney disease, or unspecified chronic kidney disease; E78.5 Hyperlipidemia, unspecified; I50.9 Heart failure, unspecified; Z86.711 Personal history of pulmonary embolism; Z95.828 Presence of other vascular implants and grafts; G93.49 Other encephalopathy; N13.6 Pyonephrosis; Z68.43 Body mass index [BMI] 50.0-59.9, adult; Z79.01 Long term (current) use of anticoagulants; E83.52 Hypercalcemia; M17.12 Unilateral primary osteoarthritis, left knee; M47.816 Spondylosis without myelopathy or radiculopathy, lumbar region; E66.812 Obesity, class 2; R32 Unspecified urinary incontinence
CPT/HCPCS: 00123; 36415; 36416; 70496; 70498; 71250; 80048; 80053; 82805; 82962; 85027; 87040; 87637; 87641; 93005; 96361; 96365; 96366; 96367; 99285; 74176; 80202; 81003; 81015; 83605; 83735; 83880; 84443; 84484; 85025; 85610; 85730; 87086; 93010; 99223; 99233; 99239; J0692; J3373; J3490

== ENCOUNTER 2024-10-11 17:57 | Outpatient (REF) | payer MEDICARE, SELFPAY ==
[2024-10-11 18:25] LABS: Glucose Negative (Negative)
[2024-10-11 18:35] LABS: RBC 20-50 HPF (0-2); WBC 20-50 HPF (0-5)
== END 2024-10-11 17:58 | disposition home or self-care (01) ==
LOC: LBN 17:57
PROVIDERS: PCP Nurse Practitioner Family; Visit Provider Nurse Practitioner Gerontology
DX: N39.0 Urinary tract infection, site not specified (principal)
CPT/HCPCS: 81003; 81015; 87086

== ENCOUNTER 2024-11-03 19:49 | Outpatient (REF) | payer MEDICARE, SELFPAY ==
[2024-11-03 20:52] LABS: Glucose Negative (Negative)
[2024-11-03 21:01] LABS: C & S Indicated? Yes; WBC >50 HPF (0-5)
== END 2024-11-03 19:50 | disposition home or self-care (01) ==
LOC: LBN 19:49
PROVIDERS: PCP Nurse Practitioner Family; Visit Provider Nurse Practitioner Gerontology
DX: N39.0 Urinary tract infection, site not specified (principal)
CPT/HCPCS: 87077; 81003; 81015; 87086; 87186

== ENCOUNTER 2024-11-12 15:34 | Outpatient (REF) | payer MEDICARE, SELFPAY ==
[2024-11-12 12:58] LABS: Glucose Negative (Negative)
[2024-11-12 13:02] LABS: Abs Immature Grans 0.06 10^3/uL (0.0-0.06); HCT 42.7 % (40.0-50.0); HGB 13.2 g/dL (13.5-17.5); Immature Grans % 0.8 %; MCH 26.8 pg (27.0-33.0); MCHC 30.9 % (32.0-36.0); MCV 87 fL (80-95); MPV 10.1 fL (8.0-11.0); Platelet Count 217 10^3/uL (130-400); RBC 4.92 10^6/uL (4.36-5.78); RDW 14.7 % (11.8-14.1); RDW-SD 46.9 fL; WBC 7.71 10^3/uL (4.4-10.8)
[2024-11-12 13:05] LABS: Anion Gap 10.5 mmol/L (3-11); BUN 24 mg/dL (7-18); CO2 25.5 mmol/L (21.0-32.0); Calcium 10.3 mg/dL (8.5-10.1); Chloride 105 mmol/L (98-107); Estimated GFR 65.79 (mL/min/1.73m2); Glucose 127 mg/dL (74-106); Potassium 4.8 mmol/L (3.5-5.1); Sodium 141 mmol/L (136-145)
[2024-11-12 13:15] LABS: RBC >50 HPF (0-2)
== END 2024-11-12 15:35 | disposition home or self-care (01) ==
LOC: LBN 15:34
PROVIDERS: PCP Nurse Practitioner Family; Visit Provider Nurse Practitioner Family
DX: N39.0 Urinary tract infection, site not specified (principal)
CPT/HCPCS: 80048; 87077; 81003; 81015; 85025; 87086; 87186

== ENCOUNTER 2024-11-28 11:07 | Emergency (ER) | payer MEDICARE, MEDICAID, SELFPAY ==
[2024-11-28 11:05] VITALS: BP 144/69; PULSE 76; RESP 15; TEMP 36.6; O2SAT 96
[2024-11-28 13:34] LABS: Glucose Negative (Negative)
[2024-11-28 13:41] LABS: C & S Indicated? Yes; RBC >50 HPF (0-2)
[2024-11-28 13:42] LABS: WBC >50 HPF (0-5)
--- NOTE | 2024-11-28 18:12 | W.ED.GENAD ---
Discharge Plan Disposition Patient Disposition: Home Condition: Stable Discharge Details Clinical Impression: Displacement of nephrostomy tube, Hematuria Primary Care Provider: Anne-Marie Wright ED Provider: Heidi Bryant Home Meds and New Rx's Prescriptions: Continued cholecalciferol (vitamin D3) 1,250 mcg (50,000 unit) capsule 1,250 mcg PO QWEEK omeprazole 20 mg capsule,delayed release(DR/EC) 40 mg PO DAILY polyethylene glycol 3350 [Miralax] 17 gram/dose powder 17 g PO BID acetaminophen 500 mg capsule 1,000 mg PO BID calcitonin (salmon) 200 unit/actuation spray,non-aerosol 1 spray intranasal .QOD Rx Instructions: Administer in right nostril every other day and 1 spray in left nostril opposite days docusate sodium 100 mg capsule 100 mg PO DAILY furosemide [Lasix] 20 mg tablet 20 mg PO BID metoprolol tartrate 25 mg tablet 25 mg PO BID Patient Comments: Per pt. always takes this around [id number] 03/15/24-JW Xarelto 10 mg tablet 20 mg PO QPM Discharge Instructions Additional Instructions: They are going to replace your nephrostomy tube first thing in the morning tomorrow when you arrive at [facility] Continue holding your Xarelto as instructed, prior to parathyroidectomy Stay hydrated, make sure you are drinking fluids Please return should you develop fever, chills, or with any progression of symptoms Referrals: Anne-Marie Wright [Primary Care Provider, Medicine] Discharge Data Discharge Date/Time-TO BE ENTERED AT DEPARTURE: 11/28/24 17:04 HPI General Date/Time Provider Initiated Documentation: 11/28/24 11:09. HPI Narrative: This complex 84-year-old gentleman who currently resides at the [facility] and has a chronic indwelling nephrostomy tube for ureteral injury previously. Nephrostomy tube was changed this week and plan was to keep this in place for the next 3 weeks however patient called the back on his wheelchair and pulled the nephrostomy tube out. He has been off Eliquis for the past 2 days and scheduled for parathyroidectomy tomorrow. This occurred at approximately 10:00 this morning. Patient has been producing urine but has been uncomfortable since that time. She denies any fever, chills, or additional complaints at this time. Related Data Home Medications ?Medication ?Instructions ?Recorded ?Confirmed cholecalciferol (vitamin D3) 1,250 1,250 mcg PO QWEEK 06/15/24 11/28/24 mcg (50,000 unit) capsule acetaminophen 500 mg capsule 1,000 mg PO BID 09/18/24 11/28/24 calcitonin (salmon) 200 1 spray intranasal .QOD 09/18/24 11/28/24 unit/actuation nasal spray docusate sodium 100 mg capsule 100 mg PO DAILY 09/18/24 11/28/24 furosemide 20 mg tablet (Lasix) 20 mg PO BID 09/18/24 11/28/24 metoprolol tartrate 25 mg tablet 25 mg PO BID 09/18/24 11/28/24 omeprazole 20 mg capsule,delayed 40 mg PO DAILY 09/18/24 11/28/24 release polyethylene glycol 3350 17 17 g PO BID 09/18/24 11/28/24 gram/dose oral powder (Miralax) rivaroxaban 10 mg tablet (Xarelto) 20 mg PO QPM 09/18/24 11/28/24 Allergies Allergy/AdvReac Type Severity Reaction Status Date / Time amlodipine AdvReac Mild nightmares/restless Verified 11/28/24 11:13 sleep hydrochlorothiazide AdvReac Mild possible Verified 11/28/24 11:13 Erectile dysfunction finasteride AdvReac Hypertensio Verified 11/28/24 11:13 n General Stated Complaint: GenMedical THALIA: 3 Exam Narrative Exam Narrative: Alert and at his baseline mentation 84-year-old gentleman with a dislodged nephrostomy tube, site looks atraumatic, no abdominal tenderness some mild blood noted at the urethral meatus no active bleeding visualized no CVA tenderness no signs of systemic illness Course Vital Signs Vital signs: Vital Signs Temperature 36.6 C 11/28/24 11:05 Pulse 76 11/28/24 11:05 Respiratory Rate 15 11/28/24 11:05 Blood Pressure 144/69 H 11/28/24 11:05 Pulse Oximetry 96 11/28/24 11:05 Temperature 36.6 C 11/28/24 11:05 Temperature Source Oral 11/28/24 11:05 Pulse 76 11/28/24 11:05 Respiratory Rate 15 11/28/24 11:05 Blood Pressure 144/69 H 11/28/24 11:05 Pulse Oximetry 96 11/28/24 11:05 Lab/Test Results Lab/Test Results: 11/28/24 13:06 Urine - Reflex from Ua Urine Culture - Pending Laboratory Tests Range/Units 11/28/24 13:06 Urine Color (Yellow) Yellow Urine Clarity (Clear) Cloudy Urine pH (5-8) 5.5 Ur Specific [place] (1.005-1.025) 1.020 Urine Protein (Neg-Trace) mg/dL 100 H Urine Ketones (Negative) mg/dL Negative Urine Blood (Negative) Large H Urine Nitrite (Negative) Negative Urine Bilirubin (Negative) Negative Urine Urobilinogen (Up to 0.2) mg/dL 0.2 Ur Leukocyte Esterase (Negative) Moderate H Urine RBC (0-2) HPF >50 H Urine WBC (0-5) HPF >50 H Ur Epithelial Cells Not Applicable Urine Crystals Not Applicable Urine Bacteria Not Applicable Urine Mucus Not Applicable Ur Culture Indicated? Yes Urine Glucose (Negative) mg/dL Negative Medical Decision Making Results: Urinalysis shows greater than 50 white blood cells and greater than 50 red blood cells Assessment and plan: I spoke with Dr. Lima, urology and his recommendation was to admit for do an interventional radiology. He felt like there was reasonable to wait until tomorrow morning provided that interventional radiology agreed with plan. I spoke with porsche Parada, interventional radiology and we reviewed both the concerning urinalysis and patient's presentation and vitals and he does not feel like patient requires transfer down to [facility] for placement of nephrostomy tube this evening. Patient will be transferred at 7:30 in the morning to [facility] to have nephrology treatment placement and subsequent parathyroidectomy. Patient and are agreeable to plan. I did spend approximately an hour communicating with multiple providers at [facility] for appropriate management of this patient and he remained stable throughout this encounter without signs of systemic illness. I do not feel he needs emergent transfer down and interventional radiology and urology were comfortable with this plan. I did review patient's prior urinalysis results and it looks like he always has white blood cells and red blood cells in his urine. I suspect some of his dysuria is related to the blood in his urine. I did order a postvoid bladder scan and patient has 70 cc which I feel is appropriate at this time. Quality:SDOH Health Related Social Needs: Health related social needs daily activities PFSH All Active Problems (Updated 11/28/24 @ 15:16 by EMILIE Champion) Hematuria (Acute) Displacement of nephrostomy tube (Acute) Left ureteral injury (Acute) 09/08/24 [facility] Urology note Discharge planning issues (Acute) Hyperparathyroidism (Acute) Stenosis of right vertebral artery (Chronic) Acute alteration in mental status (Acute) Urinary tract infection associated with nephrostomy catheter (Acute) Complicated UTI (urinary tract infection) (Acute) Renal calculus, left (Chronic) Hydronephrosis of left kidney (Chronic) Nail dystrophy (Acute) Yeast UTI (Acute) Confusion associated with infection (Acute) Confusion (Acute) Abnormal urinalysis (Acute) Pulmonary emboli (Chronic) Sepsis (Acute) Hematuria (Acute) Acute hypoxic respiratory failure (Acute) Edema of both lower extremities (Acute) Well-managed, with exercise/activity; b/l general .. trial compression and lasix Elevated parathyroid hormone (Acute) Osteoarthritis of right knee (Acute) Steroid injection: 03/04/24; 05/19/2023 Hypercalcemia (Acute) CKD (chronic kidney disease) stage 3, GFR 30-59 ml/min (Acute) Stage 3, 2022, with LALA (GFR <30!) 2' over-diures.. Hx stage 2-3 (2021) Edema of foot (Acute) Knee pain, bilateral (Acute) ? 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 (Worsening, re-start furosemide, 10/2020) Renal calculus Hematuria: CT (01/09/23) vs. CT (04/27/2022):.. largest calculus in the left kidney has now migrated to the upper left ureter/UPJ level (prob responsible for hematuria)..no obvious dilatation of the left collecting system above this level..another calculus again noted in the left left kidney lower pole calyx (no changed position)..previously present 3 mm calculus in the bladder no longer seen and has most probably passed. 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 07/2021 Left knee pain Acute on chronic. Not a surgical candidate. Cane helping - may need training.. BPH w/o urinary obs/LUTS (02/15/11) nocturiaX1-2; INCR 3X 09/2012 Acute on chronic renal failure Acute exacerbation of congestive heart failure Hosp; resolved .. but with too much fluid restriction post hosp! Bakers cyst Rt, 4cm.. incidental finding on US DVT (deep venous thrombosis) New DVT, 02/2021. Xarelto started. Resolved, Elijoi D/C'd 07/2020 by Surg. C. 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 denies this stated that this was due to an interaction a year ago where having the masks on and he his hard of hearing they stated he had dementia which his and current PCP stated he does not. 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 Taylor started him on HCTZ 2005. High BP readings @ ophtho, urol . turns out to be 2' finesteride, Dr. Smallwood d/c'd .. will follow up in July 2018. 125/85 today, 06/2018, ik. Surgical History Hx of cataract removal with insertion of prosthetic lens 12/11/20 [facility], [facility] Posterior subcapsular age-related cataract, right eye Nuclear sclerotic cataract of right eye S/P cholecystectomy (01/24/20) S/P ERCP Arthroscopy (02/10/84) in [place], Left knee Family History Son Age: 62 No problems noted. 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
--- NOTE | 2024-11-30 09:37 | ED.FU.B_ITS ---
Date of service: 11/30/24 Time of Service: 09:37 Follow Up Plan: Patient had a positive urine culture. Culture results were faxed to [facility] where patient had been hospitalized.
--- NOTE | 2024-11-30 09:37 | W.ED.FU ---
Date of service: 11/30/24 Time of Service: 09:37 Follow Up Plan: Patient had a positive urine culture. Culture results were faxed to [facility] where patient had been hospitalized.
--- NOTE | 2024-12-01 08:44 | NUR.NOTE ---
Accessed Pt chart to document antibiotics given on the Specimen Report. There were not any antibiotics given. Report was given to the Providers.
== END 2024-11-28 17:04 | disposition home or self-care (01) ==
PROVIDERS: Emergency Provider Physician Assistant; PCP Legal Medicine
DX: T83.022A Displacement of nephrostomy catheter, initial encounter (principal); R31.9 Hematuria, unspecified; R30.0 Dysuria; Z73.9 Problem related to life management difficulty, unspecified
CPT/HCPCS: 99284; 99283; 87077; 81003; 81015; 87086; 87186

== ENCOUNTER 2024-11-29 02:51 | Emergency (ER) | payer MEDICARE, MEDICAID, SELFPAY ==
[2024-11-29 02:46] VITALS: BP 196/112; PULSE 90; RESP 20; TEMP 36.8; O2SAT 94
--- NOTE | 2024-11-29 02:56 | W.ED.GENAD ---
Discharge Plan Disposition Patient Disposition: Other Disposition Not Listed Other Facility: previously scheduled [facility] visit Condition: Good Discharge Details Clinical Impression: UTI (urinary tract infection) Primary Care Provider: Anne-Marie Wright ED Provider: Ze Mercado and New Rx's Prescriptions: Continued cholecalciferol (vitamin D3) 1,250 mcg (50,000 unit) capsule 1,250 mcg PO QWEEK omeprazole 20 mg capsule,delayed release(DR/EC) 40 mg PO DAILY polyethylene glycol 3350 [Miralax] 17 gram/dose powder 17 g PO BID acetaminophen 500 mg capsule 1,000 mg PO BID calcitonin (salmon) 200 unit/actuation spray,non-aerosol 1 spray intranasal .QOD Rx Instructions: Administer in right nostril every other day and 1 spray in left nostril opposite days docusate sodium 100 mg capsule 100 mg PO DAILY furosemide [Lasix] 20 mg tablet 20 mg PO BID metoprolol tartrate 25 mg tablet 12.5 mg PO BID Patient Comments: Per pt. always takes this around [id number] 03/15/24-JW Xarelto 10 mg tablet 20 mg PO QPM diclofenac sodium 1 % gel 4 g topical DAILY Rx Instructions: 4grams to each knee guaifenesin [Chest Congestion Relief] 100 mg/5 mL liquid 200 mg PO Q4H PRN Rx Instructions: for 7 days Start: 11/26/24 Stop: 12/03/24 Discharge Instructions Additional Instructions: You were sent to the ED from your ECF for concern of altered mental status. Your mental status was confirmed to be baseline per your . Your exam and vitals were otherwise reassuring. Your urine from yesterday does appear to be infected. Knowing that you are getting a new nephrostomy tube and typically get antibiotics for this as well as knowing you have a surgery scheduled for later we placed an IV checked a CBC and BMP which looked fine and gave you a dose of IV antibiotics (Cipro). Given the time you were not sent back to the ECF, but arrangements were made with Jose Sawyer to pick you up here instead to transport you to your previously scheduled appointments/procedures. HPI General Mode of arrival: EMS. Date/Time Provider Initiated Documentation: 11/29/24 02:56. Limitations to Documentation: no limitations. Information obtained by: patient, family, RN notes reviewed and old records reviewed. HPI Narrative: Patient sent to ED from ECF for altered mental status. Patient was here yesterday after nephrostomy tube was accidentally pulled out. Patient was supposed to be going down to [facility] this morning for new nephrostomy tube placement followed by a parathyroidectomy was which already scheduled. Patient has no complaints of. Seems to be baseline, which is confirmed once his arrived. Urine from yesterday appears to be infected with WBC and RBC > 50/hpf. He did not receive antibiotic yesterday. Related Data Home Medications ?Medication ?Instructions ?Recorded ?Confirmed cholecalciferol (vitamin D3) 1,250 1,250 mcg PO QWEEK 06/15/24 11/29/24 mcg (50,000 unit) capsule acetaminophen 500 mg capsule 1,000 mg PO BID 09/18/24 11/29/24 calcitonin (salmon) 200 1 spray intranasal .QOD 09/18/24 11/29/24 unit/actuation nasal spray docusate sodium 100 mg capsule 100 mg PO DAILY 09/18/24 11/29/24 furosemide 20 mg tablet (Lasix) 20 mg PO BID 09/18/24 11/29/24 metoprolol tartrate 25 mg tablet 12.5 mg PO BID 09/18/24 11/29/24 omeprazole 20 mg capsule,delayed 40 mg PO DAILY 09/18/24 11/29/24 release polyethylene glycol 3350 17 17 g PO BID 09/18/24 11/29/24 gram/dose oral powder (Miralax) rivaroxaban 10 mg tablet (Xarelto) 20 mg PO QPM 09/18/24 11/29/24 diclofenac sodium 1 % topical gel 4 g topical DAILY 11/29/24 11/29/24 guaifenesin 100 mg/5 mL oral 200 mg PO Q4H PRN 11/29/24 11/29/24 liquid (Chest Congestion Relief) Allergies Allergy/AdvReac Type Severity Reaction Status Date / Time amlodipine AdvReac Mild nightmares/restless Verified 11/28/24 11:13 sleep hydrochlorothiazide AdvReac Mild possible Verified 11/28/24 11:13 Erectile dysfunction finasteride AdvReac Hypertensio Verified 11/28/24 11:13 n General THALIA: 3 Exam Narrative Exam Narrative: Const: Obese elderly male in NAD. VS per triage. HEENT: NC/AT. Normal facial exam. Neck: Supple. Trachea midline. Lungs: Normal respiratory effort. Lungs are clear. Cor: RRR without murmur. Good radial pulses. GI: Soft/ND/NT. Neuro: Awake and alert with normal speech. Cranial nerves II - XII grossly intact. No gross motor or sensory deficit. Medical Decision Making Patient sent in for altered mental status. Patient, per , is completely at baseline. He has no complaints. He is hypertensive but otherwise normal vitals and afebrile. He has a left ureteral stent in place per [facility] notes. He is supposed to be having a new nephrostomy tube placed this morning. He will then undergo previously scheduled parathyroidectomy. His urine from yesterday suggest infection with WBC and RBC. Not clear reading [facility] notes if this was understood as note only says blood. I do not think patient requires admission here, but sending him back to ECF when ambulance is supposed to be getting him for transport at 7am seems unreasonable. I would also like to cover for the probable UTI. He typically gets Cipro prior to tube changes. After discussion with patient and will place IV here and does with Cipro. Will get a CBC and BMP. Will plan discharge from here and have Jose berry picker machine operator here as opposed to ECF and transport to [facility] as previously scheduled. CBC and BMP are fine. Jose will berry picker machine operator here for transport to [facility] as scheduled. Will leave IV in place. Medical Records Medical records reviewed: Yes I reviewed the patient's medical records. Medical records narrative: IR note from yesterday Lab Data Lab results reviewed: Yes I reviewed the patient's lab results. Lab results narrative: see MDM Quality:SDOH Health Related Social Needs: Health related social needs daily activities PFSH All Active Problems (Updated 11/29/24 @ 04:58 by Ze Mercado MD) UTI (urinary tract infection) (Acute) Hematuria (Acute) Displacement of nephrostomy tube (Acute) Left ureteral injury (Acute) 09/08/24 [facility] Urology note Discharge planning issues (Acute) Hyperparathyroidism (Acute) Stenosis of right vertebral artery (Chronic) Acute alteration in mental status (Acute) Urinary tract infection associated with nephrostomy catheter (Acute) Complicated UTI (urinary tract infection) (Acute) Renal calculus, left (Chronic) Hydronephrosis of left kidney (Chronic) Nail dystrophy (Acute) Yeast UTI (Acute) Confusion associated with infection (Acute) Confusion (Acute) Abnormal urinalysis (Acute) Pulmonary emboli (Chronic) Sepsis (Acute) Hematuria (Acute) Acute hypoxic respiratory failure (Acute) Edema of both lower extremities (Acute) Well-managed, with exercise/activity; b/l general .. trial compression and lasix Elevated parathyroid hormone (Acute) Osteoarthritis of right knee (Acute) Steroid injection: 03/04/24; 05/19/2023 Hypercalcemia (Acute) CKD (chronic kidney disease) stage 3, GFR 30-59 ml/min (Acute) Stage 3, 2022, with LALA (GFR <30!) 2' over-diures.. Hx stage 2-3 (2021) Edema of foot (Acute) Knee pain, bilateral (Acute) ? goop injection Onychomycosis (Acute) Lumbar spondylosis (Acute) Lumbar back pain (Acute) Lumbar adjacent segment disease with spondylolisthesis (Acute) shelter (current) use of anticoagulants (Acute) Osteoarthritis of left knee (Acute) Steroid injection: 03/04/24; 05/19/2023; 12/07/2020 HTN (hypertension) (Chronic) Hyperlipidemia (Chronic 10/24/04) RISK 12% 11/2005; LDL goal 100 Need labs, [ ] Fall 201807/01/18 Medical History Pneumonia Leg edema Resolves with activity, qAM, 04/2022.. (Worsening, re-start furosemide, 10/2020) Renal calculus Hematuria: CT (01/09/23) vs. CT (04/27/2022):.. largest calculus in the left kidney has now migrated to the upper left ureter/UPJ level (prob responsible for hematuria)..no obvious dilatation of the left collecting system above this level..another calculus again noted in the left left kidney lower pole calyx (no changed position)..previously present 3 mm calculus in the bladder no longer seen and has most probably passed. 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 07/2021 Left knee pain Acute on chronic. Not a surgical candidate. Cane helping - may need training.. BPH w/o urinary obs/LUTS (02/15/11) nocturiaX1-2; INCR 3X 09/2012 Acute on chronic renal failure Acute exacerbation of congestive heart failure Hosp; resolved .. but with too much fluid restriction post hosp! Bakers cyst Rt, 4cm.. incidental finding on US DVT (deep venous thrombosis) New DVT, 02/2021. Xarelto started. Resolved, Eliquis D/C'd 07/2020 by Surg. C. 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 denies this stated that this was due to an interaction a year ago where having the masks on and he his hard of hearing they stated he had dementia which his and current PCP stated he does not. 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 Taylor started him on HCTZ 2005. High BP readings @ ophtho, urol . turns out to be 2' finesteride, Dr. Smallwood d/c'd .. will follow up in July 2018. 125/85 today, 06/2018, ik. Surgical History Hx of cataract removal with insertion of prosthetic lens 12/11/20 [facility], [facility] Posterior subcapsular age-related cataract, right eye Nuclear sclerotic cataract of right eye S/P cholecystectomy (01/24/20) S/P ERCP Arthroscopy (02/10/84) in [place], Left knee Family History Son Age: 62 No problems noted. 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
[2024-11-29 03:00] VITALS: BP 184/113
[2024-11-29 03:17] VITALS: BP 196/112; PULSE 90; RESP 20; TEMP 36.8; O2SAT 94
[2024-11-29] MEDS: CIPROFLOXACIN 400 MG/200 ML BAG 200 MG IVPB (04:18)
[2024-11-29 04:34] LABS: Abs Immature Grans 0.05 10^3/uL (0.0-0.06); HCT 40.7 % (40.0-50.0); HGB 12.9 g/dL (13.5-17.5); Immature Grans % 0.6 %; MCH 27.1 pg (27.0-33.0); MCHC 31.7 % (32.0-36.0); MCV 86 fL (80-95); MPV 9.0 fL (8.0-11.0); Platelet Count 121 10^3/uL (130-400); RBC 4.76 10^6/uL (4.36-5.78); RDW 15.0 % (11.8-14.1); RDW-SD 46.8 fL; WBC 7.78 10^3/uL (4.4-10.8)
[2024-11-29 04:43] LABS: Anion Gap 8.1 mmol/L (3-11); BUN 21 mg/dL (7-18); CO2 30.9 mmol/L (21.0-32.0); Calcium 10.2 mg/dL (8.5-10.1); Chloride 102 mmol/L (98-107); Estimated GFR 65.79 (mL/min/1.73m2); Glucose 105 mg/dL (74-106); Potassium 3.9 mmol/L (3.5-5.1); Sodium 141 mmol/L (136-145)
--- NOTE | 2024-11-30 11:11 | NUR.NOTE ---
Faxed labs to [facility]. Recived. Nursing Note:
--- NOTE | 2024-12-02 08:30 | W.ED.FU ---
Date of service: 12/02/24 Time of Service: 08:31 Follow Up Plan: Patient had positive urine culture. He had been hospitalized and subsequently discharged from [facility] [place]. He has been seen by urology. They had elected not to treat his urine. Will continue to observe off of antibiotics.
== END 2024-11-29 07:57 | disposition other institution (70) ==
PROVIDERS: Emergency Provider Emergency Medicine; PCP Legal Medicine
DX: N39.0 Urinary tract infection, site not specified (principal)
CPT/HCPCS: 36415; 80048; 96365; 99284; 85025; 99283; J0744

== ENCOUNTER 2024-12-02 09:52 | Emergency (ER) | payer MEDICARE, MEDICAID, SELFPAY ==
[2024-12-02] VITALS (37 sets, daily range): BP systolic 104–180; BP diastolic 48–98; PULSE 97–131; RESP 18–29; TEMP 36.9–39.5; O2SAT 88–97
--- NOTE | 2024-12-02 09:30 | RT.EKG_ITS ---
APPROVED REPORT Exam: Resting ECG Reason for Exam: Sepsis Patient Location: E HR:128 bpm ECG Measurements Heart Rate 128 AXIS MS [id number] P [id number] QRSd 90 QRS -22 QT 345 T 35 QTc 506 Conclusion Junctional tachycardia...absent P waves, rapid V-rate Multiple ventricular premature complexes...V complexes w/ short R-R intervls Prolonged QT interval...QTc >500mS No Occlusion FL
--- NOTE | 2024-12-02 09:42 | ED.GENADUL_ITS ---
Discharge Plan Disposition Patient Disposition: Transfer-Acute Inpatient Care Specific Acute Inpt Facility: [facility] Discharge Details Clinical Impression: Fever postop, Fluid collection at surgical site, Infiltrate of lower lobe of right lung present on imaging study Primary Care Provider: Anne-Marie Wright ED Provider: Rudolph Wayne Home Meds and New Rx's Prescriptions: No Action cholecalciferol (vitamin D3) 1,250 mcg (50,000 unit) capsule 1,250 mcg PO QWEEK omeprazole 20 mg capsule,delayed release(DR/EC) 40 mg PO DAILY polyethylene glycol 3350 [Miralax] 17 gram/dose powder 17 g PO BID acetaminophen 500 mg capsule 1,000 mg PO BID calcitonin (salmon) 200 unit/actuation spray,non-aerosol 1 spray intranasal .QOD Rx Instructions: Administer in right nostril every other day and 1 spray in left nostril opposite days docusate sodium 100 mg capsule 100 mg PO DAILY furosemide [Lasix] 20 mg tablet 20 mg PO BID metoprolol tartrate 25 mg tablet 12.5 mg PO BID Patient Comments: Per pt. always takes this around [id number] 03/15/24-JW Xarelto 10 mg tablet 20 mg PO QPM diclofenac sodium 1 % gel 4 g topical DAILY Rx Instructions: 4grams to each knee guaifenesin [Chest Congestion Relief] 100 mg/5 mL liquid 200 mg PO Q4H PRN Rx Instructions: for 7 days Start: 11/26/24 Stop: 12/03/24 HPI General Date/Time Provider Initiated Documentation: 12/02/24 09:59 . HPI Narrative: MDM This is an unwell appearing tachycardic febrile and hypertensive 84-year-old full code male with concerns for sepsis from a urinary source given positive cultures from recent ED stay. PE is certainly in the differential given recent hospitalization the patient is on rivaroxaban. Will complete bedside ultrasound prior to fluid resuscitation. Will treat empirically for sepsis following blood cultures with cefepime and vancomycin. Patient does have swelling at his postoperative site on his neck which also extends onto his chest concerning for cellulitis. Will complete CT soft tissue neck to assess for any deeper space infection. No brawny edema submentally to suggest Kvng's angina. Patient's right upper extremity also is erythematous tender concerning for the possibility of DVT given recent hospitalization for effusion will undergo radiology duplex study. No signs of sacral decubitus ulcers. Soft nontender abdomen and no history of vomiting so I am not suspicious for intra-abdominal infection. No pain or proportion to suggest necrotizing soft tissue infection. Anticipate patient will require hospitalization either locally or with tertiary care. I initially ordered norepinephrine but will defer this for the moment given reassuring blood pressures. ECG showing sinus tachycardia rate of 128. Prolonged QT interval. No acute injury pattern. Tachycardia has replaced rate controlled atrial fibrillation. Patient is encephalopathic. He does not have any focal neurological deficits. As result I do not feel he would be a TNK candidate. I did order CT head. Given concern for urinary source of infection I do not feel patient requires lumbar puncture at this juncture. Furthermore I am concerned given his altered mental status I am mild tachypnea that attempting lumbar puncture would risk respiratory compromise and I do not want patient to aspirate. He does not require emergent airway management at this point in time. 10:52 AM I met with the patient and his . confirmed that patient was full code. CBC returned with no leukocytosis. Mild normocytic anemia similar to prior. No thrombocytopenia. Venous blood gas lacks acidemia and hypercarbia. Reassuring normal lactate. Patient had not received his home medications from the [facility]. I ordered his metoprolol. 11:48 AM Troponin returned completely higher than prior. Will obtain delta troponin. Troponin remains within normal limits. proBNP mildly elevated improved compared to prior. Comprehensive metabolic panel with no LALA. Mild hyperbilirubinemia similar to prior. Mild gap acidosis. Mildly elevated BUN. Normal bicarbonate. Decreased TSH. Free T4 pending. CK within normal limits. Free T4 mildly elevated. COVID influenza RSV all negative. 12:37 PM I reassessed the patient. His tachycardia is resolving. He has not yet received his metoprolol. His neck CT showed postsurgical changes and an air- fluid collection. Chest CTA showing no PE. Small right-sided pleural effusion right lobe consolidation. Concern also for aspiration. No UE DVT. 3:07 PM I spoke with his surgeon, Dr. Haider, from [facility]. She felt that transfer to [facility] w/the hospitalists. 4:52 PM I spoke with Dr. Bob for the hospitalist team who accepted the patient for hospitalization. Given no immediate operative intervention planned advance patient's diet. Will sign patient out to Dr. Abraham while heremains in the emergency department. HPI This is a patient with a history of parathyroidectomy presenting with altered mental status, difficulty breathing, and fever. History provided by the patient's range manager. The patient was found in a state of confusion this morning and was experiencing difficulty breathing. His heart rate was recorded in the 120s, and his systolic blood pressure was 180. His temperature was elevated at 102?F. He was observed to be desaturating upon arrival, prompting the use of a mask. The patient is usually not on supplemental oxygen but was placed on 2L of O2. There is noticeable redness around the incision site on the right side of his neck. The patient's orientation status is currently unknown. He has not been administered any antipyretics. PAST SURGICAL HISTORY: Parathyroidectomy Exam General: Chronically ill-appearing with mild tachypnea. Nonverbal. Head: Normocephalic, atraumatic. Eye:[Pupils equal, round reactive to light.] Extraocular eye movements intact. No conjunctival injection. No scleral icterus. Ear, nose, mouth, throat: Grossly normal inspection. Normal voice, handling secretions normally. Neck: Trachea midline. No nuchal rigidity. On the inferior aspect of the patient's anterior neck adjacent to his recent surgical scar there is extensive erythema. Chest wall: From neck erythema stretches inferior and lateral onto the patient's right chest wall. Cardiovascular: Well-perfused distal extremities. Rapid regular rate. Respiratory: Nonlabored respiration. Decreased breath sounds bilateral bases. Gastrointestinal: Nondistended abdomen. Soft. Nontender. No rebound. Back: No signs of sacral decubitus ulcer. Left nephrostomy tube in position. Musculoskeletal: Right upper extremity with extensive erythema mild swelling. No pain with passive range of motion. Right hand warm well-perfused intact right radial pulse, 2+. Cap refill less than 2 seconds in the right fingertips. Moving all 4 extremities spontaneously. Skin: Normal for age and race, grossly normal temperature and turgor. No acute rash. Neurologic: Alert. Oriented to person but not place nor time. Related Data Home Medications ?Medication ?Instructions ?Recorded ?Confirmed cholecalciferol (vitamin D3) 1,250 1,250 mcg PO QWEEK 06/15/24 12/02/24 mcg (50,000 unit) capsule acetaminophen 500 mg capsule 1,000 mg PO BID 09/18/24 12/02/24 calcitonin (salmon) 200 1 spray intranasal .QOD 11/0412/02/24 unit/actuation nasal spray docusate sodium 100 mg capsule 100 mg PO DAILY 5 12/02/24 furosemide 20 mg tablet (Lasix) 20 mg PO BID 09/18/24 12/02/24 metoprolol tartrate 25 mg tablet 12.5 mg PO BID 12/02/24 omeprazole 20 mg capsule,delayed 40 mg PO DAILY 12/02/24 release polyethylene glycol 3350 17 17 g PO BID 09/18/2412/02 gram/dose oral powder (Miralax) rivaroxaban 10 mg tablet (Xarelto) 20 mg PO QPM 12/02/24 Held on 12/02/24. Instructions: Changed by Provider diclofenac sodium 1 % topical gel 4 g topical DAILY 12/02/24 guaifenesin 100 mg/5 mL oral 200 mg PO Q4H PRN 5 12/02/24 liquid (Chest Congestion Relief) Allergies Allergy/AdvReac Type Severity Reaction Status Date / Time amlodipine AdvReac Mild nightmares/restless Verified 12/02/24 11:30 sleep hydrochlorothiazide AdvReac Mild possible Verified 12/02/24 11:30 Erectile dysfunction finasteride AdvReac Hypertensio Verified 12/02/24 11:30 n General THALIA: 3 Medical Decision Making Quality:SDOH Health Related Social Needs: Health related social needs daily activities Critical Care Time Critical Care Time Critical Care Time: Yes Total Critical Care Time: 60 Attestation: Tachycardic altered with sepsis PFSH All Active Problems (Updated 12/02/24 @ 16:31 by Rudolph Wayne MD) Infiltrate of lower lobe of right lung present on imaging study (Acute) Fluid collection at surgical site (Acute) Fever postop (Acute) UTI (urinary tract infection) (Acute) Hematuria (Acute) Displacement of nephrostomy tube (Acute) Left ureteral injury (Acute) 09/08/24 [facility] Urology note Discharge planning issues (Acute) Hyperparathyroidism (Acute) Stenosis of right vertebral artery (Chronic) Acute alteration in mental status (Acute) Urinary tract infection associated with nephrostomy catheter (Acute) Complicated UTI (urinary tract infection) (Acute) Renal calculus, left (Chronic) Hydronephrosis of left kidney (Chronic) Nail dystrophy (Acute) Yeast UTI (Acute) Confusion associated with infection (Acute) Confusion (Acute) Abnormal urinalysis (Acute) Pulmonary emboli (Chronic) Sepsis (Acute) Hematuria (Acute) Acute hypoxic respiratory failure (Acute) Edema of both lower extremities (Acute) Well-managed, with exercise/activity; b/l general .. trial compression and lasix Elevated parathyroid hormone (Acute) Osteoarthritis of right knee (Acute) Steroid injection: 03/04/24; 05/19/2023 Hypercalcemia (Acute) CKD (chronic kidney disease) stage 3, GFR 30-59 ml/min (Acute) Stage 3, 2022, with LALA (GFR <30!) 2' over-diures.. Hx stage 2-3 (2021) Edema of foot (Acute) Knee pain, bilateral (Acute) ? 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 (Worsening, re-start furosemide, 10/2020) Renal calculus Hematuria: CT (01/09/23) vs. CT (04/27/2022):.. largest calculus in the left kidney has now migrated to the upper left ureter/UPJ level (prob responsible for hematuria)..no obvious dilatation of the left collecting system above this level..another calculus again noted in the left left kidney lower pole calyx (no changed position)..previously present 3 mm calculus in the bladder no longer seen and has most probably passed. 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 07/2021 Left knee pain Acute on chronic. Not a surgical candidate. Cane helping - may need training.. BPH w/o urinary obs/LUTS (02/15/11) nocturiaX1-2; INCR 3X 09/2012 Acute on chronic renal failure Acute exacerbation of congestive heart failure Hosp; resolved .. but with too much fluid restriction post hosp! Bakers cyst Rt, 4cm.. incidental finding on US DVT (deep venous thrombosis) New DVT, 02/2021. Xarelto started. Resolved, Eliquis D/C'd 07/2020 by Surg. C. 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 denies this stated that this was due to an interaction a year ago where having the masks on and he his hard of hearing they stated he had dementia which his and current PCP stated he does not. 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 Taylor started him on HCTZ 2005. High BP readings @ ophtho, urol . turns out to be 2' finesteride, Dr. Smallwood d/c'd .. will follow up in July 2018. 125/85 today, 06/2018, ik. Surgical History Hx of cataract removal with insertion of prosthetic lens 12/11/20 [place], [facility] Posterior subcapsular age-related cataract, right eye Nuclear sclerotic cataract of right eye S/P cholecystectomy (01/24/20) S/P ERCP Arthroscopy (02/10/84) in CT, Left knee Family History Son Age: 62 No problems noted. 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 [employer] Current gender identity: male What type of physical activity do you participate in: none Working smoke detector in home: Yes Fire extinguisher in home: Yes Carbon monox detector in home: Yes Additional Social history: unable to assess privately POCUS Exam (ED) Limited Cardiac Exam DATE OF EXAM: 12/02/24 TIME OF EXAM: 10:56 PROVIDER THAT PERFORMED THE STUDY: Rudolph Wayne IS THIS A REPEAT EXAM DURING THIS ENCOUNTER: no REASON FOR EXAM: Dyspnea VISUALIZED STRUCTURES: Four Chambers, Left ventricle and LVOT VIEW OBTAINED: Apical 4-Chamber, Parasternal long-axis and Subxiphoid PERTINENT FINDINGS/IMPRESSION: No pericardial effusion and No RV dilation DIFFERENTIAL DIAGNOSES: Aortic outflow track less than 4 cm, good squeeze, RV less than LV, no signif icant pericardial effusion. No B-lines bilaterally. Exam complete
--- NOTE | 2024-12-02 09:45 | DI.CT_ITS ---
Exam(s) CT NECK W EXAM: CT NECK W CLINICAL HISTORY: Postoperative neck swelling. TECHNIQUE: Imaging Protocol: Axial computed tomography images with coronal and sagittal reformatted images were created and reviewed. CONTRAST MATERIAL: Intravenous: Omnipaque 350 Contrast volume:50mL COMPARISON: CT CT BRAIN NECK CTA from 09/18/2024 FINDINGS: Visualized intracranial structures: Within normal limits. Orbits and orbital soft tissues: Within normal limits. Visualized paranasal sinuses: Within normal limits. Pharynx: Within normal limits. Larynx: Within normal limits. Retropharyngeal space: Within normal limits. Parotids/submandibular: Within normal limits. Thyroid gland: Within normal limits. Lymphadenopathy: There is scattered lymph nodes seen along the level one to level three all measuring less than 8 mm in short axis diameter which are physiologic in nature. Trachea: Within normal limits. There are now surgical clips seen in the region of the thoracic inlet inferior to the thyroid gland. There is no focal fluid collection seen in this region to suggest an abscess. There is no mass effect on the trachea. There is no tracheal narrowing. Bones: Within normal limits for the patient's age. Carotids/Jugular: Within normal limits. Soft tissues: There is a air-fluid collection it measures 5.8 cm transverse by 1 cm AP x 2.5 cm craniocaudad. There is no enhancing wall to suggest an abscess. It is located in the subcutaneous tissues inferior to the hyoid bone and anterior to the thyroid cartilage. It does not appear to communicate with the airway. IMPRESSION: 1. 5.8 x 1.0 x 2.5 cm air-fluid collection in the anterior soft tissues inferior to the hyoid bone and anterior to the thyroid cartilage. It does not contain an enhancing wall. This may represent a postoperative seroma or hematoma. Abscess is considered less likely. 2. Postsurgical changes inferior to the thyroid gland. No mass effect on or narrowing of the trachea is seen. RADIATION DOSE DELIVERED: 388.72mGy.cm Total DLP 388.72mGy.cm Total DLP DATA REPOSITORY: All CT scans at this facility are submitted to the National Radiology Data Registry (NRDR) Dose Index Registry (DIR) with the [employer] (ACR). RADIATION OPTIMIZATION: All CT scans at this facility use at least one of these dose optimization techniques: automated exposure control; mA and/or kV adjustment per patient size (includes targeted exams where dose is matched to clinical indication); or iterative reconstruction.
--- NOTE | 2024-12-02 09:45 | DI.CT_ITS ---
Exam(s) CT CHEST PE CTA EXAM: CT CHEST PE CTA CLINICAL HISTORY: Shortness of breath fever. TECHNIQUE: Imaging Protocol: Axial CT angiography was performed with multi- slice acquisition and multi-planar and/or 3D reconstructions. Lung Computer Aided Detection (CAD) was utilized. CONTRAST MATERIAL: Intravenous: Omnipaque 350 contrast volume:70 mL COMPARISON: CT CT CHEST PE ABD PELVIS W from 05/07/[address] CHEST/ABD/PEL WO from 09/18/2024 CR XR PORTABLE CHEST AP from 12/02/2024 FINDINGS: The examination is limited due to patient motion artifact. Tracheobronchial tree: Patent where visualized. No bronchiectasis. There are some secretions seen in the right mainstem bronchus. Pulmonary parenchyma: Small ground-glass infiltrates are seen in the left lingula and the left lower lobe. There is a small right pleural effusion and right lower lobe consolidation. Pulmonary Arteries: No evidence of filling defect to suggest pulmonary emboli. Mediastinum and Olena: No dominant adenopathy or fluid collection. The esophagus is unremarkable. There are surgical clips seen inferior to the thyroid gland. There is infiltration of the soft tissues around the trachea inferior to the thyroid gland. Tracheal wall is unremarkable. Visualized thyroid gland: Unremarkable. Pleura: There is no evidence of a pneumothorax. There is no left pleural effusion. Heart: The heart is not dilated. Coronary artery calcification is present. No pericardial effusion. Aorta: Thoracic aorta non-dilated. No evidence of dissection. Atherosclerotic calcification is present. Upper abdomen: There is a stable left hepatic cyst. Status post cholecystectomy. Soft tissues: Gynecomastia. Bones: Within normal limits for the patient's age. IMPRESSION: 1. Please see the CT Neck dictation. 2. No evidence of pulmonary embolism, thoracic aortic dissection or aneurysm. 3. Small right pleural effusion and right lower lobe consolidation which may represent atelectasis or pneumonia. Ground-glass infiltrates are also seen in the left lingula and left lower lobe. 4. Secretions in the right mainstem bronchus which may reflect aspiration. 5. Infiltration of the soft tissues around the trachea inferior to the thyroid gland. This is consistent with the patient's recent parathyroidectomy. There is no abscess seen in the operative bed. RADIATION DOSE DELIVERED: 314mGy.cm Total DLP DATA REPOSITORY: All CT scans at this facility are submitted to the National Radiology Data Registry (NRDR) Dose Index Registry (DIR) with the [employer] (ACR). RADIATION OPTIMIZATION: All CT scans at this facility use at least one of these dose optimization techniques: automated exposure control; mA and/or kV adjustment per patient size (includes targeted exams where dose is matched to clinical indication); or iterative reconstruction.
--- NOTE | 2024-12-02 10:00 | DI.CT_ITS ---
Exam(s) CT HEAD WO EXAM: CT HEAD WO CLINICAL HISTORY: Altered. TECHNIQUE: Imaging Protocol: Axial computed tomography images with coronal and sagittal reformatted images were created and reviewed COMPARISON: CT CT HEAD WO from 03/21/[address] BRAIN NECK CTA from 09/18/2024 FINDINGS: There is artifact in the posterior fossa due to the patient's dental work. Ventricles and Extra axial spaces: Normal in size and morphology for the patient's age. Hemorrhage: None. Cerebral parenchyma: There are areas of decreased attenuation in the white matter consistent with chronic microvascular ischemic disease. No definite evidence of an acute territorial infarct is seen. No acute mass effect is present. Midline shift: None. Brainstem/Cerebellum: Normal. Calvarium: Normal. Visualized Paranasal sinuses/Mastoids: Clear. Soft Tissues: Unremarkable. IMPRESSION: Within the limits of the examination, no acute abnormalities identified. RADIATION DOSE DELIVERED: 1,011.29mGy.cm Total DLP DATA REPOSITORY: All CT scans at this facility are submitted to the National Radiology Data Registry (NRDR) Dose Index Registry (DIR) with the [employer] (ACR). RADIATION OPTIMIZATION: All CT scans at this facility use at least one of these dose optimization techniques: automated exposure control; mA and/or kV adjustment per patient size (includes targeted exams where dose is matched to clinical indication); or iterative reconstruction.
--- NOTE | 2024-12-02 10:00 | DI.US_ITS ---
Exam(s) US UPPER EXTREMITY VENOUS RT EXAM: US UPPER EXTREMITY VENOUS RT CLINICAL HISTORY: Right arm swelling. TECHNIQUE: Ultrasound examination of the right upper extremity venous system(s) is performed using grayscale, color-flow, and spectral Doppler analysis. COMPARISON: No exams were available for comparison FINDINGS: Right Deep Veins:The visualized internal jugular and subclavian veins are patent. The axillary and brachial veins are patent and display normal color flow, augmentation and compressibility. Superficial Veins:The visualized cephalic, median cubital and basilic veins are patent and display normal color flow, augmentation and compressibility. Soft tissues: Unremarkable. IMPRESSION: No evidence of a right upper extremity deep venous thrombosis. DATA REPOSITORY:
--- NOTE | 2024-12-02 10:34 | DI.RAD_ITS ---
Exam(s) XR PORTABLE CHEST AP EXAM: XR PORTABLE CHEST AP CLINICAL HISTORY: Sepsis TECHNIQUE: 2D digital imaging was performed of the chest. One image was obtained. An AP view was obtained. COMPARISON: CR,XR XR CHEST 2V PA LATERAL from 04/27/2022 CR XR PORTABLE CHEST AP from 09/16/2022 CR XR CHEST 2V PA LATERAL from 09/16/2022 FINDINGS: There is poor inspiration. MEDIASTINUM: Normal. HEART: Heart size appears enlarged, however this may be accentuated by the poor inspiration in the AP projection. PULMONARY VASCULATURE: There is prominence of the pulmonary vasculature. This may be due to crowding of the vessels and poor inspiration. LUNGS: Question of a left basilar infiltrate. PLEURAL SPACE: No pleural effusion or pneumothorax. BONE:Within normal limits for the patient's age. OTHER FINDINGS:Normal. IMPRESSION: 1. Examination limited by AP projection and poor inspiration. 2. Question of a left basilar infiltrate. DATA REPOSITORY: RADIATION DOSE DELIVERED:
[2024-12-02] MEDS: ACETAMINOPHEN 1,000 MG/100 ML BAG 400 MG IVPB (10:35)
[2024-12-02 10:37] LABS: BE (Venous) 3 mmol/L (-2-3); HCO3 (Venous) 28 mmol/L (23-28); O2 Sat (Venous) 60 %; TCO2 (Venous) 26 mmol/L (24-29); pCO2 (Venous) 47 mmHg (41-51); pO2 (Venous) 32 mmHg
[2024-12-02 10:42] LABS: Abs Immature Grans 0.05 10^3/uL (0.0-0.06); HCT 40.5 % (40.0-50.0); HGB 12.9 g/dL (13.5-17.5); Immature Grans % 0.5 %; MCH 27.2 pg (27.0-33.0); MCHC 31.9 % (32.0-36.0); MCV 85 fL (80-95); MPV 9.6 fL (8.0-11.0); Platelet Count 133 10^3/uL (130-400); RBC 4.74 10^6/uL (4.36-5.78); RDW 14.7 % (11.8-14.1); RDW-SD 46.5 fL; WBC 10.62 10^3/uL (4.4-10.8)
[2024-12-02] MEDS: CEFEPIME 2 GM in Normal Saline 100 ML IVPB (10:49)
[2024-12-02] MEDS: VANCOMYCIN/WATER (PEG) 2 GM/400 ML BAG IVPB (10:50)
[2024-12-02] MEDS: Normal Saline 500 ML IV (10:51)
[2024-12-02 10:54] LABS: INR 1.1 (0.9-1.1); Prothrombin Time 11.2 sec (9.1-11.1)
[2024-12-02 11:23] LABS: ALT 9 U/L (16-63); AST 13 U/L (15-37); Albumin 3.0 g/dL (3.4-5.0); Alkaline Phosphatase 58 U/L (46-116); Anion Gap 12.3 mmol/L (3-11); BUN 28 mg/dL (7-18); Bilirubin, Total 1.4 mg/dL (0.2-1.0); CO2 28.7 mmol/L (21.0-32.0); Calcium 8.3 mg/dL (8.5-10.1); Chloride 101 mmol/L (98-107); Creatine Kinase 64 U/L (39-308); Estimated GFR 53.84 (mL/min/1.73m2); Glucose 103 mg/dL (74-106); NT-proBNP 1380 pg/mL (<300); Potassium 4.0 mmol/L (3.5-5.1); Sodium 142 mmol/L (136-145); TSH (W/Ref FT4) 0.09 uIU/mL (0.36-3.74); Total Protein 7.3 g/dL (6.4-8.2); Troponin I 29 ng/L (<or=76)
[2024-12-02 11:34] LABS: COVID-19 PCR Negative (Negative); RSV PCR Negative (Negative)
[2024-12-02] MEDS: Normal Saline - Diluent 50 ML VIAL IJ (12:01)
[2024-12-02] MEDS: Omnipaque 350 MG/ML 500 ML BTL-Imaging package IJ (12:01)
[2024-12-02 12:45] LABS: Troponin I 40 ng/L (<or=76)
[2024-12-02 13:10] LABS: Glucose Negative (Negative)
[2024-12-02 13:24] LABS: WBC 20-50 HPF (0-5)
[2024-12-02 13:25] LABS: C & S Indicated? Yes
[2024-12-02 14:58] LABS: Troponin I 44 ng/L (<or=76)
[2024-12-02] MEDS: Metoprolol CR 25 MG TABCR 12.5 MG PO (19:24)
== END 2024-12-02 20:55 | disposition short-term general hospital (02) ==
PROVIDERS: Emergency Medicine; Emergency Provider General Practice; PCP Legal Medicine
DX: R91.8 Other nonspecific abnormal finding of lung field (principal); T88.8XXA Other specified complications of surgical and medical care, not elsewhere classified, initial encounter; R50.82 Postprocedural fever
CPT/HCPCS: 36415; 70491; 71275; 80053; 82550; 82805; 86850; 86900; 86901; 87040; 87637; 93005; 93308; 96361; 96365; 96366; 96367; 96368; 99291; 70450; 71045; 81003; 81015; 83605; 83880; 84439; 84443; 84484; 85025; 85610; 87086; 93010; 93971; J0131; J0692; J3373

== ENCOUNTER 2024-12-23 16:58 | Outpatient (REF) | payer MEDICARE, SELFPAY ==
[2024-12-23 17:10] LABS: Abs Immature Grans 0.18 10^3/uL (0.0-0.06); HCT 41.7 % (40.0-50.0); HGB 12.9 g/dL (13.5-17.5); Immature Grans % 2.4 %; MCH 26.8 pg (27.0-33.0); MCHC 30.9 % (32.0-36.0); MCV 87 fL (80-95); MPV 9.7 fL (8.0-11.0); Platelet Count 257 10^3/uL (130-400); RBC 4.82 10^6/uL (4.36-5.78); RDW 14.9 % (11.8-14.1); RDW-SD 47.4 fL; WBC 7.46 10^3/uL (4.4-10.8)
[2024-12-23 18:13] LABS: ALT 11 U/L (10-49); AST 14 U/L (<34); Albumin 3.9 g/dL (3.4-5.0); Alkaline Phosphatase 68 U/L (46-116); Anion Gap 11.8 mmol/L (3-11); BUN 29 mg/dL (9-23); Bilirubin, Total 0.40 mg/dL (0.2-1.2); CO2 27.2 mmol/L (20.0-31.0); Calcium 8.9 mg/dL (8.3-10.6); Chloride 104 mmol/L (98-107); Glucose 109 mg/dL (74-106); Potassium 4.3 mmol/L (3.5-5.1); Sodium 143 mmol/L (136-145); Total Protein 7.2 g/dL (5.7-8.2)
[2024-12-23 18:15] LABS: Magnesium 2.0 mg/dL (1.6-2.6)
== END 2024-12-23 16:59 | disposition home or self-care (01) ==
LOC: LBN 16:58
PROVIDERS: PCP Legal Medicine; Visit Provider Nurse Practitioner Gerontology
DX: I50.22 Chronic systolic (congestive) heart failure (principal); D63.1 Anemia in chronic kidney disease; E83.42 Hypomagnesemia
CPT/HCPCS: 80053; 83735; 83880; 85025

== ENCOUNTER 2024-12-27 18:43 | Outpatient (REF) | payer MEDICARE, SELFPAY ==
[2024-12-27 16:19] LABS: Abs Immature Grans 0.13 10^3/uL (0.0-0.06); HCT 40.5 % (40.0-50.0); HGB 12.8 g/dL (13.5-17.5); Immature Grans % 1.4 %; MCH 27.5 pg (27.0-33.0); MCHC 31.6 % (32.0-36.0); MCV 87 fL (80-95); MPV 10.6 fL (8.0-11.0); Platelet Count 190 10^3/uL (130-400); RBC 4.66 10^6/uL (4.36-5.78); RDW 15.4 % (11.8-14.1); RDW-SD 48.7 fL; WBC 9.09 10^3/uL (4.4-10.8)
[2024-12-27 16:29] LABS: ALT 10 U/L (10-49); AST 17 U/L (<34); Albumin 3.8 g/dL (3.4-5.0); Alkaline Phosphatase 64 U/L (46-116); Anion Gap 10.6 mmol/L (3-11); BUN 27 mg/dL (9-23); Bilirubin, Total 0.40 mg/dL (0.2-1.2); CO2 28.4 mmol/L (20.0-31.0); Calcium 8.4 mg/dL (8.3-10.6); Chloride 104 mmol/L (98-107); Glucose 102 mg/dL (74-106); Potassium 4.2 mmol/L (3.5-5.1); Sodium 143 mmol/L (136-145); Total Protein 6.6 g/dL (5.7-8.2)
== END 2024-12-27 18:44 | disposition home or self-care (01) ==
LOC: LBN 18:43
PROVIDERS: PCP Legal Medicine; Visit Provider Nurse Practitioner Gerontology
DX: I50.9 Heart failure, unspecified (principal); E87.8 Other disorders of electrolyte and fluid balance, not elsewhere classified; D63.1 Anemia in chronic kidney disease
CPT/HCPCS: 80053; 83880; 85025

== ENCOUNTER 2025-01-10 21:00 | Outpatient (REF) | payer MEDICARE, SELFPAY ==
[2025-01-10 19:02] LABS: ALT 8 U/L (10-49); AST 13 U/L (<34); Albumin 3.5 g/dL (3.2-5.0); Alkaline Phosphatase 57 U/L (46-116); Anion Gap 9.3 mmol/L (3-11); BUN 24 mg/dL (9-23); Bilirubin, Total 0.40 mg/dL (0.2-1.2); CO2 29.7 mmol/L (20.0-31.0); Calcium 8.3 mg/dL (8.3-10.6); Chloride 104 mmol/L (98-107); Glucose 105 mg/dL (74-106); Potassium 4.2 mmol/L (3.5-5.1); Sodium 143 mmol/L (136-145); Total Protein 6.3 g/dL (5.7-8.2)
== END 2025-01-10 21:01 | disposition home or self-care (01) ==
LOC: LBN 21:00
PROVIDERS: PCP Legal Medicine; Visit Provider Nurse Practitioner
DX: E87.8 Other disorders of electrolyte and fluid balance, not elsewhere classified (principal); E21.3 Hyperparathyroidism, unspecified
CPT/HCPCS: 80053; 83970

== ENCOUNTER → 2025-01-14 11:15 | Outpatient (BNVA) | payer MEDICARE, MEDICAID, SELFPAY | PROVIDERS: PCP Legal Medicine; Referring Provider Legal Medicine; Visit Provider Physician Assistant | DX: M17.0 Bilateral primary osteoarthritis of knee (principal) | CPT/HCPCS: 20610; J1010 ==

== ENCOUNTER 2025-01-23 18:20 | Inpatient (IN) | payer MEDICARE, MEDICAID, SELFPAY ==
[2025-01-23] VITALS (54 sets, daily range): BP systolic 80–199; BP diastolic 49–130; PULSE 90–128; RESP 14–39; TEMP 39.6; O2SAT 89–98
--- NOTE | 2025-01-23 18:15 | RT.EKG_ITS ---
APPROVED REPORT Exam: Resting ECG Reason for Exam: AMS Patient Location: E HR:113 bpm ECG Measurements Heart Rate 113 AXIS VT 225 P 18 QRSd 90 QRS -26 QT 297 T 22 QTc 409 Conclusion Sinus tachycardia...rate> 99 Prolonged VT interval...VT >215, V-rate 91-120 Inferior infarct, old...Q >35mS, II III aVF Physician: No STEMI
--- NOTE | 2025-01-23 18:15 | DI.RAD_ITS ---
Exam(s) XR PORTABLE CHEST AP EXAM: XR PORTABLE CHEST AP CLINICAL HISTORY: SOB, Hypoxic, Aspiration TECHNIQUE: 2D digital imaging was performed. COMPARISON: CR XR PORTABLE CHEST AP from 12/02/[address] CHEST PE CTA from 12/02/2024 FINDINGS: The exam is extremely limited by poor pulmonary inflation. There are overlying monitoring leads. There is mild motion. LUNGS: Pulmonary vascular prominence may be secondary to hypoinflation. Coarsening of interstitial markings may indicate pulmonary edema. No pleural abnormality seen. HEART: Grossly enlarged. AORTA: Tortuous. BONES: Unremarkable for age. Soft tissues: Unremarkable. IMPRESSION: Exam limited by poor pulmonary inflation. Question of CHF. The preliminary [facility] report was reviewed. DATA REPOSITORY: RADIATION DOSE DELIVERED:
--- NOTE | 2025-01-23 18:34 | W.ED.GENAD ---
Discharge Plan Disposition Patient Disposition: Admit to [facility] Condition: Improving Discharge Details Clinical Impression: Acute hypoxemic respiratory failure, Aspiration pneumonia, Severe sepsis Primary Care Provider: Anne-Marie Wright ED Provider: Dallin Glaser Home Meds and New Rx's Prescriptions: No Action cholecalciferol (vitamin D3) 1,250 mcg (50,000 unit) capsule 1,250 mcg PO QWEEK omeprazole 20 mg capsule,delayed release(DR/EC) 20 mg PO DAILY calcitriol 0.25 mcg capsule 0.25 mcg PO DAILY ondansetron 4 mg tablet,disintegrating 4 mg PO DAILY PRN polyethylene glycol 3350 [Miralax] 17 gram/dose powder 17 g PO BID acetaminophen 500 mg capsule 1,000 mg PO BID calcitonin (salmon) 200 unit/actuation spray,non-aerosol 1 spray intranasal .QOD Rx Instructions: Administer in right nostril every other day and 1 spray in left nostril opposite days docusate sodium 100 mg capsule 100 mg PO DAILY furosemide [Lasix] 20 mg tablet 20 mg PO BID metoprolol tartrate 25 mg tablet 12.5 mg PO BID Patient Comments: Per pt. always takes this around [id number] 03/15/24-JW Xarelto 10 mg tablet 10 mg PO QPM diclofenac sodium 1 % gel 4 g topical DAILY Rx Instructions: 4grams to each knee HPI General Date/Time Provider Initiated Documentation: 01/23/25 18:27. HPI Narrative: This is a pleasant 84-year-old male with a past medical history of primary hyperparathyroidism status post parathyroidectomy, DVT and PE on anticoagulation with Xarelto, chronic kidney disease, hypertension, AAA, chronic left ureteral stenting with recent left nephrostomy tube, who resides at the [facility], who presents today for altered mental status. Per staff at the [facility], the patient had 1 or 2 episodes of vomiting early to her today and may have had a component of aspiration. Then later in the day he began to get confused, febrile, tachypneic and hypoxic. EMS was called and he was brought to the ER for further assessment. Patient is notably altered, does not follow commands, and otherwise has no complaints. No other modifying factors. Related Data Home Medications ?Medication ?Instructions ?Recorded ?Confirmed cholecalciferol (vitamin D3) 1,250 1,250 mcg PO QWEEK 06/15/24 01/23/25 mcg (50,000 unit) capsule acetaminophen 500 mg capsule 1,000 mg PO BID 09/18/24 01/23/25 calcitonin (salmon) 200 1 spray intranasal .QOD 09/18/24 01/23/25 unit/actuation nasal spray docusate sodium 100 mg capsule 100 mg PO DAILY 09/18/24 01/23/25 furosemide 20 mg tablet (Lasix) 20 mg PO BID 09/18/24 01/23/25 metoprolol tartrate 25 mg tablet 12.5 mg PO BID 09/18/24 01/23/25 polyethylene glycol 3350 17 17 g PO BID 09/18/24 01/23/25 gram/dose oral powder (Miralax) rivaroxaban 10 mg tablet (Xarelto) 10 mg PO QPM 09/18/24 01/23/25 Held on 12/02/24. Instructions: Changed by Provider diclofenac sodium 1 % topical gel 4 g topical DAILY 11/29/24 01/23/25 calcitriol 0.25 mcg capsule 0.25 mcg PO DAILY 01/23/25 01/23/25 omeprazole 20 mg capsule,delayed 20 mg PO DAILY 01/23/25 01/23/25 release ondansetron 4 mg disintegrating 4 mg PO DAILY PRN 01/23/25 01/23/25 tablet Allergies Allergy/AdvReac Type Severity Reaction Status Date / Time amlodipine AdvReac Mild nightmares/restless Verified 01/23/25 19:15 sleep hydrochlorothiazide AdvReac Mild possible Verified 01/23/25 19:15 Erectile dysfunction finasteride AdvReac Hypertensio Verified 01/23/25 19:15 n General Stated Complaint: AMS/LOC THALIA: 2 Exam Narrative Exam Narrative: 1.Const: Well-nourished, Well-developed, appearing stated age 2.Eyes: PERRL, no conjunctival injection, and symmetrical lids. 3.ENT: Atraumatic external nose and ears. Moist MM. Neck: Symmetric, trachea midline, No thyromegaly. 4.CVS: +S1/S2, Peripheral pulses 2+ and equal in all extremities. Brisk capillary refill in all extremities. 5.RESP: Crackles and rhonchi in the bases bilaterally, worse on the right than the left 6.GI: Soft, Nontender/Nondistended, No hepatosplenomegaly. No guarding or rebound. Left-sided nephrostomy tube in place 7.MSK: Normocephalic/Atraumatic, Extremities w/o deformity or ttp No cyanosis or clubbing, Normal movement of all extremities 8.Skin: Warm, Dry. No rashes or lesions. 9.Neuro: justice professor II-XII grossly intact. Patient moves all extremities. 10.Psych: (AAO) x0 GCS of 9 Course Vital Signs Vital signs: Vital Signs Temperature 39.6 C H 01/23/25 18:22 Pulse 123 H 01/23/25 18:22 Respiratory Rate 18 01/23/25 18:22 Blood Pressure 177/109 H 01/23/25 18:22 Pulse Oximetry 90 L 01/23/25 18:22 Temperature 39.6 C H 01/23/25 18:22 Pulse 123 H 01/23/25 18:22 Respiratory Rate 18 01/23/25 18:22 Blood Pressure 177/109 H 01/23/25 18:22 Pulse Oximetry 90 L 01/23/25 18:22 Oxygen Delivery Method Room Air 01/23/25 18:22 Oxygen Flow Rate 0 01/23/25 18:22 Lab/Test Results Lab/Test Results: 01/23/25 18:28 Blood Blood Culture - Pending 01/23/25 18:28 Blood Blood Culture - Pending Medical Decision Making This is a pleasant 84-year-old male with a past medical history of primary hyperparathyroidism status post parathyroidectomy, DVT and PE on anticoagulation with Xarelto, chronic kidney disease, hypertension, AAA, chronic left ureteral stenting with recent left nephrostomy tube, who resides at the [facility], who presents today for altered mental status. Per staff at the [facility], the patient had 1 or 2 episodes of vomiting early to her today and may have had a component of aspiration. Then later in the day he began to get confused, febrile, tachypneic and hypoxic. EMS was called and he was brought to the ER for further assessment. Patient is notably altered, does not follow commands, and otherwise has no complaints. No other modifying factors. Exam demonstrates patient with a GCS of 9 with spontaneous eye movements, no verbal response, who withdraws from pain. He was tachycardic, febrile, and hypoxic in the 80s. With a GCS being borderline at 9 he may require intubation for airway protection. Right now he has increased O2 saturations in the low 90s on 5 to 6 L via nasal cannula. Patient demonstrates evidence of sepsis, and I suspect aspiration pneumonia to be a cause. Will start him on broad-spectrum antibiotics at this stage though with potential for downgrading later if more localized source is noted. We will gently rehydrate, monitor closely and reassess. We will start on vancomycin, Zosyn and azithromycin. 7:50 PM Laboratory workup is returning, no white count but he does have left shift. Elevated lactate of 2.2, VBG is stable, no acidosis. Electrolytes are normal however BUN is 30 with a creatinine of 1 suggesting some prerenal azotemia and dehydration. We gave an initial 500 cc bolus. Bedside echo shows good ejection fraction. Will give an additional 500 cc bolus. On reassessment there remains no abdominal pain or tenderness at this time to suggest obstruction or acute intra-abdominal surgical pathology. proBNP is 2800 and relatively stable for the patient. Will continue to monitor closely. He does have a slight improvement in his mental status. He is slightly more alert, and is a GCS now of 10 following some basic commands. Blood pressure is soft at this time in the 90s systolic. 9:33 PM On reassessment patient is having notable improvement. GCS is now round 12-13. He is talking and following commands. Blood pressure after fluid boluses stabilized at around 105/50. Heart rate is below 100. Mental status is improving. Patient has had notable clinical improvement. Chest x-ray shows coarse markings in both lungs, however clinically he has crackles notably in the right in comparison to the left. With the episode of vomiting while lying down, I do suspect aspiration pneumonia/pneumonitis to be high in the differential but the cause of his current fever and symptomatology. Still pending COVID flu and RSV. Urine shows 50 RBCs and 10-20 WBCs. Urine output is only about 1 to 200 cc. After his initial liter bolus we will continue fluids at 150 cc an hour. I contacted the hospitalist Dr. Amaral, he agrees with the assessment and plan and will admit the patient to the ICU for further monitoring and continued antibiotics. At this time with the patient stabilize blood pressure, improved mental status, improved GCS, I do not see an indication for central line placement, intubation, or art line. I have extensively reviewed the treatment plan with the patient. I have addressed all patient concerns at this time. I have also discussed the plan with the admitting physician and they agree with the current assessment and plan and have agreed to assume responsibility for the patient. All parties demonstrate verbal understanding and agreement with our assessment and plan at this time. The documentation in this chart was dictated using J[employer]in[employer] dictation software. Please excuse any dictation errors. FINDINGS: Lungs: The lungs are hypoinflated. There may be some mild bilateral coarse markings at both lung bases versus artifact of incomplete aeration. Even allowing for hypoinflation, pulmonary vascularity appears redistributed. Pleural spaces: Unremarkable. No pleural effusion. No pneumothorax. Heart/Mediastinum: Cardiomegaly. Vasculature: Aortic ectasia. Bones/joints: Unremarkable. IMPRESSION: Possible congestive heart failure. Early bibasilar atelectasis or consolidation not excludable. Thank you for allowing us to participate in the care of your patient. Dictated and Authenticated by: Alissa Wang MD 01/23/2025 7:29 PM Eastern Time ([place] & [place]) Quality:SDOH Health Related Social Needs: Health related social needs daily activities Critical Care Time Critical Care Time Critical Care Time: Yes Total Critical Care Time: 60 Attestation: Upon my evaluation, this patient had a high probability of imminent or life-threatening deterioration, which required my direct attention, intervention, and personal management. I have personally provided 60 minutes of critical care time exclusive of time spent on separately billable procedures. Time includes review of laboratory data, radiology results, discussion with consultants, and monitoring for potential decompensation. Interventions were performed as documented. PFSH All Active Problems (Updated 01/23/25 @ 21:42 by Dallin Glaser DO) Severe sepsis (Acute) Aspiration pneumonia (Acute) Acute hypoxemic respiratory failure (Acute) Left ureteral injury (Acute) 09/08/24 [facility] Urology note Discharge planning issues (Acute) Hyperparathyroidism (Chronic) Stenosis of right vertebral artery (Chronic) Acute alteration in mental status (Acute) Urinary tract infection associated with nephrostomy catheter (Acute) Complicated UTI (urinary tract infection) (Acute) Renal calculus, left (Chronic) Hydronephrosis of left kidney (Chronic) Nail dystrophy (Acute) Yeast UTI (Acute) Confusion associated with infection (Acute) Confusion (Acute) Abnormal urinalysis (Acute) Pulmonary emboli (Chronic) Sepsis (Acute) Hematuria (Acute) Acute hypoxic respiratory failure (Acute) Edema of both lower extremities (Acute) Well-managed, with exercise/activity; b/l general .. trial compression and lasix Elevated parathyroid hormone (Acute) Osteoarthritis of right knee (Acute) Steroid injection: 01/14/2025; 03/04/24; 05/19/2023 Hypercalcemia (Acute) CKD (chronic kidney disease) stage 3, GFR 30-59 ml/min (Acute) Stage 3, 2022, with LALA (GFR <30!) 2' over-diures.. Hx stage 2-3 (2021) Edema of foot (Acute) Knee pain, bilateral (Acute) ? goop injection Onychomycosis (Acute) Lumbar spondylosis (Acute) Lumbar back pain (Acute) Lumbar adjacent segment disease with spondylolisthesis (Acute) long term care social worker (current) use of anticoagulants (Acute) Osteoarthritis of left knee (Acute) Steroid injection: 01/14/2025; 03/04/24; 05/19/2023; 12/07/2020 HTN (hypertension) (Chronic) Hyperlipidemia (Chronic 10/24/04) RISK 12% 11/2005; LDL goal 100 Need labs, [ ] Fall 201807/01/18 Medical History Pneumonia Leg edema Resolves with activity, qAM, 04/2022.. (Worsening, re-start furosemide, 10/2020) Renal calculus Hematuria: CT (01/09/23) vs. CT (04/27/2022):.. largest calculus in the left kidney has now migrated to the upper left ureter/UPJ level (prob responsible for hematuria)..no obvious dilatation of the left collecting system above this level..another calculus again noted in the left left kidney lower pole calyx (no changed position)..previously present 3 mm calculus in the bladder no longer seen and has most probably passed. 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 07/2021 Left knee pain Acute on chronic. Not a surgical candidate. Cane helping - may need training.. BPH w/o urinary obs/LUTS (02/15/11) nocturiaX1-2; INCR 3X 09/2012 Acute on chronic renal failure Acute exacerbation of congestive heart failure Hosp; resolved .. but with too much fluid restriction post hosp! Bakers cyst Rt, 4cm.. incidental finding on US DVT (deep venous thrombosis) New DVT, 02/2021. Xarelto started. Resolved, Cinda D/C'd 07/2020 by Surg. C. 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 denies this stated that this was due to an interaction a year ago where having the masks on and he his hard of hearing they stated he had dementia which his and current PCP stated he does not. 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 Taylor started him on HCTZ 2005. High BP readings @ ophtho, urol . turns out to be 2' finesteride, Dr. Smallwood d/c'd .. will follow up in July 2018. 125/85 today, 06/2018, ik. Surgical History Hx of cataract removal with insertion of prosthetic lens 12/11/20 [place], [facility] Posterior subcapsular age-related cataract, right eye Nuclear sclerotic cataract of right eye S/P cholecystectomy (01/24/20) S/P ERCP Arthroscopy (02/10/84) in [place], Left knee Family History Son Age: 62 No problems noted. 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 [employer] Current gender identity: male What type of physical activity do you participate in: none Working smoke detector in home: Yes Fire extinguisher in home: Yes Carbon monox detector in home: Yes Additional Social history: unable to assess privately POCUS Exam (ED) Limited Cardiac Exam DATE OF EXAM: 01/23/25 TIME OF EXAM: 19:41 PROVIDER THAT PERFORMED THE STUDY: Dallin Glaser IS THIS A REPEAT EXAM DURING THIS ENCOUNTER: no REASON FOR EXAM: Dyspnea VISUALIZED STRUCTURES: Left ventricle, Right ventricle and Interventricular septum VIEW OBTAINED: Parasternal long-axis PERTINENT FINDINGS/IMPRESSION: No apparent abnormalities Exam complete
[2025-01-23] MEDS: Normal Saline 500 ML IV ×2 (18:58→20:09)
[2025-01-23 19:01] LABS: BE (Venous) 6 mmol/L (-2-3); HCO3 (Venous) 31 mmol/L (23-28); O2 Sat (Venous) 81 %; TCO2 (Venous) 28 mmol/L (24-29); pCO2 (Venous) 53 mmHg (41-51); pO2 (Venous) 47 mmHg
[2025-01-23 19:07] LABS: Abs Immature Grans 0.10 10^3/uL (0.0-0.06); HCT 43.5 % (40.0-50.0); HGB 13.7 g/dL (13.5-17.5); Immature Grans % 1.1 %; MCH 27.0 pg (27.0-33.0); MCHC 31.5 % (32.0-36.0); MCV 86 fL (80-95); MPV 9.3 fL (8.0-11.0); Platelet Count 150 10^3/uL (130-400); RBC 5.07 10^6/uL (4.36-5.78); RDW 16.4 % (11.8-14.1); RDW-SD 50.7 fL; WBC 8.72 10^3/uL (4.4-10.8)
[2025-01-23] MEDS: AZITHROMYCIN 500 MG in Normal Saline 250 ML 250 MG IVPB (19:08)
[2025-01-23] MEDS: ACETAMINOPHEN 1,000 MG/100 ML BAG 400 MG IVPB (19:09)
[2025-01-23] MEDS: PIPERACILLIN/TAZO 4.5 GM in Normal Saline 100 ML IVPB (19:09)
[2025-01-23 19:18] LABS: INR 1.0 (0.9-1.1); PTT Activated 25.2 sec (20.6-30.2); Prothrombin Time 10.0 sec (9.1-11.1)
[2025-01-23 19:24] LABS: ALT 9 U/L (10-49); AST 15 U/L (<34); Albumin 4.1 g/dL (3.2-5.0); Alkaline Phosphatase 59 U/L (46-116); Ammonia 15 umol/L (11-32); Anion Gap 8.3 mmol/L (3-11); BUN 30 mg/dL (9-23); Bilirubin, Total 1.3 mg/dL (0.2-1.2); CO2 29.7 mmol/L (20.0-31.0); Calcium 8.4 mg/dL (8.3-10.6); Chloride 103 mmol/L (98-107); Glucose 127 mg/dL (74-106); Potassium 4.6 mmol/L (3.5-5.1); Sodium 141 mmol/L (136-145); Total Protein 7.1 g/dL (5.7-8.2); Troponin I 6 ng/L (<54)
[2025-01-23 19:27] LABS: TSH (W/Ref FT4) 0.90 uIU/mL (0.55-4.78)
--- NOTE | 2025-01-23 19:31 | DI.VRAD_ITS ---
PROCEDURE INFORMATION: Exam: XR Chest Exam date and time: 01/23/2025 7:03 PM Age: 84 years old Clinical indication: Shortness of breath; SOB, hypoxic, aspiration TECHNIQUE: Imaging protocol: Radiologic exam of the chest. Views: 1 view. COMPARISON: CT CHEST PE CTA 12/02/2024 11:40 AM FINDINGS: Lungs: The lungs are hypoinflated. There may be some mild bilateral coarse markings at both lung bases versus artifact of incomplete aeration. Even allowing for hypoinflation, pulmonary vascularity appears redistributed. Pleural spaces: Unremarkable. No pleural effusion. No pneumothorax. Heart/Mediastinum: Cardiomegaly. Vasculature: Aortic ectasia. Bones/joints: Unremarkable. IMPRESSION: Possible congestive heart failure. Early bibasilar atelectasis or consolidation not excludable. Dictated and Authenticated by: Alissa Wang MD. Orderin Alfredito Zamarripa MD
[2025-01-23 19:52] LABS: Procalcitonin < 0.10 ng/mL
[2025-01-23 20:00] LABS: Glucose Negative (Negative)
[2025-01-23] MEDS: VANCOMYCIN 2,000 MG in Normal Saline 500 ML 333.3333 MG IVPB (20:03)
[2025-01-23 20:08] LABS: C & S Indicated? Yes; RBC >50 HPF (0-2)
[2025-01-23 20:14] LABS: Troponin I 7 ng/L (<54)
--- NOTE | 2025-01-23 21:16 | HPE_ITS ---
Date of service: 01/23/25 Time of Service: 21:17 Assessment and Plan Assessment and plan (1) Sepsis: Start date: 01/23/25 Status: Acute Assessment and plan: This is an 84-year-old gentleman who began to have a fever after a bout of emesis the morning of admission with a question of aspiration pneumonia. He resides at the group home status post left nephrostomy tube for hydronephrosis and left ureteral stone with complications. There is a question of CHF in the past but is left-ventricular fraction on POCUS exam was preserved and had recovered from 2019 with repeat echocardiogram in 2022. He is on Lasix daily but with low blood pressure on admission, this will be held while treating his pneumonia. Because of his hypoxemia and question of need for intubation if he persists with nausea and vomiting with his pneumonia and altered mental status, he was placed in ICU for close monitoring. He is on O2 supplementation and has only mildly elevated pCO2. This appears to be acute. VBG will be followed up in the morning or as needed if worsening mental status. His lactate was elevated and will be followed in the morning with his fluid resuscitation but his procalcitonin was normal. He is a full code. (2) Pneumonia: Start date: 01/23/25 Assessment and plan: Probable aspiration pneumonia with acute respiratory decompensation. Patient will be admitted to the ICU for close monitoring but at this time does not require intubation for more aggressive care but his blood pressure recovered well in the ED with fluid resuscitation. He does not have hypotension presently and is not requiring pressors with only transient drop in blood pressure in the ED. (3) Pulmonary emboli: Status: Chronic Assessment and plan: Continue Xarelto. (4) HTN (hypertension): Status: Chronic Assessment and plan: Hold Lasix for now and watching for fluid overload. (5) Hyperparathyroidism: Status: Chronic Assessment and plan: Continue outpatient medical therapy. (6) Hydronephrosis of left kidney: Status: Chronic Assessment and plan: Patient does have left nephrostomy tube. Monitor output. History of Present Illness Narrative: This is an 84-year-old male patient with a past medical history of primary hyperparathyroidism status post parathyroidectomy, DVT and PE on anticoagulation with Xarelto, chronic kidney disease, hypertension, AAA, chronic left ureteral stenting with recent left nephrostomy tube, who resides at the [facility], and presents today for altered mental status. Per staff at the [facility], the patient had 1 or 2 episodes of vomiting early today while lying down and may have had a component of aspiration. Per ED evaluation he does have increased crackles on the right compared to left base. He was accompanied by his . Patient was answering questions for the ICU nurse when arriving but was asleep at the time I saw him. He offers no further history. He has had a complicated course after his urological procedures. He will be admitted for sepsis with imaging in the ED revealing probable aspiration pneumonia. Patient does have a history of CHF on chronic Lasix which will be held with his soft blood pressure and presentation with sepsis. It appears his left ventricular ejection fraction has improved with recent echocardiograms. He is a full code. Review of Systems Narrative: 13 point review of system otherwise unrevealing or stable per with patient not able to give history. PFSH All Active Problems Severe sepsis (Acute) Aspiration pneumonia (Acute) Acute hypoxemic respiratory failure (Acute) Left ureteral injury (Acute) 09/08/24 [facility] [place] Urology note Discharge planning issues (Acute) Hyperparathyroidism (Chronic) Stenosis of right vertebral artery (Chronic) Acute alteration in mental status (Acute) Urinary tract infection associated with nephrostomy catheter (Acute) Complicated UTI (urinary tract infection) (Acute) Renal calculus, left (Chronic) Hydronephrosis of left kidney (Chronic) Nail dystrophy (Acute) Yeast UTI (Acute) Confusion associated with infection (Acute) Confusion (Acute) Abnormal urinalysis (Acute) Pulmonary emboli (Chronic) Sepsis (Acute) Hematuria (Acute) Acute hypoxic respiratory failure (Acute) Edema of both lower extremities (Acute) Well-managed, with exercise/activity; b/l general .. trial compression and lasix Elevated parathyroid hormone (Acute) Osteoarthritis of right knee (Acute) Steroid injection: 01/14/2025; 03/04/24; 05/19/2023 Hypercalcemia (Acute) CKD (chronic kidney disease) stage 3, GFR 30-59 ml/min (Acute) Stage 3, 2022, with LALA (GFR <30!) 2' over-diures.. Hx stage 2-3 (2021) Edema of foot (Acute) Knee pain, bilateral (Acute) ? 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 (Worsening, re-start furosemide, 10/2020) Renal calculus Hematuria: CT (01/09/23) vs. CT (04/27/2022):.. largest calculus in the left kidney has now migrated to the upper left ureter/UPJ level (prob responsible for hematuria)..no obvious dilatation of the left collecting system above this level..another calculus again noted in the left left kidney lower pole calyx (no changed position)..previously present 3 mm calculus in the bladder no longer seen and has most probably passed. 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 07/2021 Left knee pain Acute on chronic. Not a surgical candidate. Cane helping - may need training.. BPH w/o urinary obs/LUTS (02/15/11) nocturiaX1-2; INCR 3X 09/2012 Acute on chronic renal failure Acute exacerbation of congestive heart failure Hosp; resolved .. but with too much fluid restriction post hosp! Bakers cyst Rt, 4cm.. incidental finding on US DVT (deep venous thrombosis) New DVT, 02/2021. Xarelto started. Resolved, Eliquis D/C'd 07/2020 by Surg. C. 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 denies this stated that this was due to an interaction a year ago where having the masks on and he his hard of hearing they stated he had dementia which his and current PCP stated he does not. 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 Taylor started him on HCTZ 2005. High BP readings @ ophtho, urol . turns out to be 2' finesteride, Dr. Smallwood d/c'd .. will follow up in July 2018. 125/85 today, 06/2018, ik. Surgical History Hx of cataract removal with insertion of prosthetic lens 12/11/20 [place], [facility] Posterior subcapsular age-related cataract, right eye Nuclear sclerotic cataract of right eye S/P cholecystectomy (01/24/20) S/P ERCP Arthroscopy (02/10/84) in CT, Left knee Family History Son Age: 62 No problems noted. 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 [employer] Current gender identity: male What type of physical activity do you participate in: none Working smoke detector in home: Yes Fire extinguisher in home: Yes Carbon monox detector in home: Yes Additional Social history: unable to assess privately Meds Allergies and Home Medications Allergies Allergy/AdvReac Type Severity Reaction Status Date / Time amlodipine AdvReac Mild nightmares/restless Verified 01/23/25 19:15 sleep hydrochlorothiazide AdvReac Mild possible Verified 01/23/25 19:15 Erectile dysfunction finasteride AdvReac Hypertensio Verified 01/23/25 19:15 n Home Medications ?Medication ?Instructions ?Recorded ?Confirmed ?Type cholecalciferol (vitamin D3) 1,250 1,250 mcg PO QWEEK 06/15/24 01/23/25 History mcg (50,000 unit) capsule acetaminophen 500 mg capsule 1,000 mg PO BID 09/18/24 01/23/25 History calcitonin (salmon) 200 1 spray intranasal .QOD 11/0401/23/25 History unit/actuation nasal spray docusate sodium 100 mg capsule 100 mg PO DAILY 5 01/23/25 History furosemide 20 mg tablet (Lasix) 20 mg PO BID 09/18/24 01/23/25 History metoprolol tartrate 25 mg tablet 12.5 mg PO BID 01/23/25 History polyethylene glycol 3350 17 17 g PO BID 09/18/2401/23 History gram/dose oral powder (Miralax) rivaroxaban 10 mg tablet (Xarelto) 10 mg PO QPM 01/23/25 History Held on 12/02/24. Instructions: Changed by Provider diclofenac sodium 1 % topical gel 4 g topical DAILY 01/23/25 History calcitriol 0.25 mcg capsule 0.25 mcg PO DAILY 01/23/25 01/23/25 History omeprazole 20 mg capsule,delayed 20 mg PO DAILY 01/23/25 History release ondansetron 4 mg disintegrating 4 mg PO DAILY PRN 01/1001/23/25 History tablet Exam Narrative Exam Narrative: General: Patient appears appropriate for age, moderately obese, he is asleep and did not awaken during my exam. The nurse did have conversation with him that he was alert and oriented at least to person and place when arriving to the ICU. HEENT: Normocephalic, eyes with pupils equal and reactive right symmetrically, extraocular movement intact and sclera anicteric. Oropharynx with moist mucosa. Neck: Supple without JVD. Back: Not examined with patient supine, patient does have left nephrostomy tube intact draining to the Ng bag with dark urine. Lungs: Inspiratory coarse crackles over the right more than left with patient examined anteriorly and laterally. Fair aeration. No tachypnea. Heart: Regular rate and rhythm with no appreciable murmur or gallop. Abdomen: Obese contour, soft and nontender to palpation with no palpable hepatosplenomegaly. Genitalia/rectal: Exam deferred. Extremities: Nonpitting edema lower extremities, no clubbing or cyanosis. Fair cap refill. Skin: Pale, warm and dry. Neuro: Cranial nerves II through XII grossly intact, no focalized motor deficits or tremor. Patient moves all extremities with stimulation. Psych: Not examined with patient asleep. He did have delirium with altered mental status in the ED which appears to be improving once reaching the ICU. Results Imaging Imaging Studies: Exam: XR Chest Exam date and time: 01/23/2025 7:03 PM Age: 84 years old Clinical indication: Shortness of breath; SOB, hypoxic, aspiration TECHNIQUE: Imaging protocol: Radiologic exam of the chest. Views: 1 view. COMPARISON: CT CHEST PE CTA 12/02/2024 11:40 AM FINDINGS: Lungs: The lungs are hypoinflated. There may be some mild bilateral coarse markings at both lung bases versus artifact of incomplete aeration. Even allowing for hypoinflation, pulmonary vascularity appears redistributed. Pleural spaces: Unremarkable. No pleural effusion. No pneumothorax. Heart/Mediastinum: Cardiomegaly. Vasculature: Aortic ectasia. Bones/joints: Unremarkable. IMPRESSION: Possible congestive heart failure. Early bibasilar atelectasis or consolidation not excludable. Date of Exam: 09/16/22 EXAM: Comprehensive 2D, Doppler, and color-flow Echocardiogram Patient Location: ER Room/Bed: 4 Specialist Physicians: Anisa Chairez RDCS (AE) Indications: CHF, Evaluate LV and RV Other Information Study Quality: Fair. Technically limited study due to body habitus, inability to position patient exam done supine in the er. Conclusion Normal left ventricular wall thickness and chamber size. Ejection fraction is 55%. Wall motion appears normal Right ventricle is not well visualized but does not appear enlarged Normal left and right atrial size Aortic valve is sclerotic without stenosis or regurgitation Mild mitral annular calcification, trace mitral regurgitation Estimated right ventricular systolic pressure is 18 mmHg Mildly dilated ascending aorta measuring 3.54 cm Labs 01/23/25 18:48 01/23/25 18:48 Labs: Laboratory Results - last 24 hr 01/23/25 01/23/25 18:48 19:45 WBC 8.72 RBC 5.07 Hgb 13.7 Hct 43.5 MCV 86 MCH 27.0 MCHC 31.5 L RDW 16.4 H Plt Count 150 MPV 9.3 Immature Gran % 1.1 Neutrophils % 83.4 Lymphocytes % 8.0 Monocytes % 6.5 Eosinophils % 0.5 Basophils % 0.5 Nucleated RBC % 0.0 Absolute Neutrophils 7.27 H Absolute Lymphocytes 0.70 L Absolute Monocytes 0.57 Absolute Eosinophils 0.04 Absolute Basophils 0.04 PT 10.0 INR 1.0 APTT 25.2 VBG pH 7.37 VBG pCO2 53 H VBG pO2 47 VBG HCO3 31 H VBG Total CO2 28 VBG O2 Saturation 81 VBG Base Excess 6 H VBG Lactate 2.2 H* Sodium 141 Potassium 4.6 Chloride 103 Carbon Dioxide 29.7 Anion Gap 8.3 BUN 30 H Creatinine 1.04 Est GFR (CKD-EPI 2020) 67.83 Glucose 127 H Calcium 8.4 Total Bilirubin 1.3 H AST 15 ALT 9 L Alkaline Phosphatase 59 Ammonia 15 Troponin I 6 7 NT-Pro-B Natriuret Pep 2847 H Total Protein 7.1 Albumin 4.1 Procalcitonin < 0.10 TSH 0.90 Urine Color Yellow Urine Clarity Sl Cloudy Urine pH 6.0 Ur Specific [place] 1.020 Urine Protein 100 H Urine Ketones Negative Urine Blood Large H Urine Nitrite Negative Urine Bilirubin Negative Urine Urobilinogen 0.2 Ur Leukocyte Esterase Small H Urine RBC >50 H Urine WBC 10-20 H Ur Epithelial Cells Rare Urine Crystals Negative Urine Bacteria Rare Urine Mucus Moderate Urine Other Few Yeast Ur Culture Indicated? Yes Urine Glucose Negative Last Vital Signs Temp 39.6 C H 01/23/25 19:14 Pulse 97 H 01/23/25 21:01 Resp 19 01/23/25 21:01 BP 98/57 L 01/23/25 21:01 Pulse Ox 97 01/23/25 21:01 VTE Prohylaxis Risk Level: Moderate/High Risk Contraindications: None Prophylaxis: Patient anticoagulated and Mechanical Time Spent Time spent with Patient: >75 minutes Time was spent: preparing to see the patient(eg.review tests), obtaining and/or reviewing separately otained hiistory, ordering medications,tests, procedures, indepentently interpreting results and care coordination
[2025-01-23] MEDS: Normal Saline 1,000 ML 150 ML IV (21:37)
[2025-01-23 22:20] LABS: Troponin I 10 ng/L (<54)
[2025-01-23 22:56] LABS: COVID-19 PCR Negative (Negative); RSV PCR Negative (Negative)
--- NOTE | 2025-01-23 23:10 | W.PC.ACHO ---
Registration Status: REG ER Primary Language: Preferred Language: German ED Information & Data Chief Complaint AMS/LOC 01/23/25 19:53 Chief Complaint AMS/LOC 01/23/25 18:42 [facility]23/25 18:22 with decreased responsiveness and altered mental status Medical / Surgical History (Last Reviewed 01/23/25 @ 21:17 by Ricardo Amaral) Pneumonia Leg edema Renal calculus Gout due to renal impairment involving toe of right foot Renal insufficiency Left knee pain BPH w/o urinary obs/LUTS (02/15/11) Acute on chronic renal failure Acute exacerbation of congestive heart failure Bakers cyst DVT (deep venous thrombosis) C. 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) Benign hypertension (12/09/05) (Last Reviewed 01/23/25 @ 21:17 by Ricardo Amaral) Hx of cataract removal with insertion of prosthetic lens Posterior subcapsular age-related cataract, right eye Nuclear sclerotic cataract of right eye S/P cholecystectomy (01/24/20) S/P ERCP Arthroscopy (02/10/84) Most Recent Vital Signs Temperature 39.6 C H 01/23/25 19:14 Pulse 92 H 01/23/25 22:42 Pulse 91 H 01/23/25 22:42 Respiratory Rate 18 01/23/25 22:42 Respiratory Effort Normal, Non-Labored 01/23/25 19:55 Respiratory Depth Normal 01/23/25 19:55 Respiratory Pattern Normal 01/23/25 19:55 Blood Pressure 105/64 01/23/25 22:41 Blood Pressure Mean 76 01/23/25 22:41 Blood Pressure Position Supine 01/23/25 19:14 Pulse Oximetry 92 01/23/25 22:42 Oxygen Delivery Method OxyMask 01/23/25 19:14 Oxygen Flow Rate 0 01/23/25 18:22 Allergies amlodipine Adverse Reaction (Mild, Verified 01/23/25 19:15) nightmares/restless sleep hydrochlorothiazide Adverse Reaction (Mild, Verified 01/23/25 19:15) possible Erectile dysfunction finasteride Adverse Reaction (Verified 01/23/25 19:15) Hypertension Precautions Isolation Standard precaution 01/23/25 19:53 Active Medications Generic Name Dose Route Start Last Admin Trade Name Ynes PRN Reason Stop Dose Admin Sodium Chloride 1,000 mls @ 150 mls/hr 01/23/25 21:32 01/23/25 21:37 Saline 1000ml Bag IV 01/24/25 04:11 150 mls/hr INFUSION STA Administration IV IV Catheter Type [Left Wrist] Saline Lock IV Catheter Type [Right Saline Lock Forearm] IV Catheter Gauge [Left Wrist] 18 IV Catheter Gauge [Right 18 Forearm] Diagnostics 01/23/25 01/23/25 01/23/25 Range/Units 22:00 21:42 19:45 WBC (4.4-10.8) 10^3/uL RBC (4.36-5.78) 10^6/uL Hgb (13.5-17.5) g/dL Hct (40.0-50.0) % MCV (80-95) fL MCH (27.0-33.0) pg MCHC (32.0-36.0) % RDW (11.8-14.1) % Plt Count (130-400) 10^3/uL MPV (8.0-11.0) fL Immature Gran % % Neutrophils % % Lymphocytes % % Monocytes % % Eosinophils % % Basophils % % Nucleated RBC % (0.0-0.3) % Absolute Neutrophils (1.2-6.7) 10^3/uL Absolute Lymphocytes (1.2-3.4) 10^3/uL Absolute Monocytes (0.1-0.8) 10^3/uL Absolute Eosinophils (0.0-0.7) 10^3/uL Absolute Basophils (0.0-0.2) 10^3/uL PT (9.1-11.1) sec INR (0.9-1.1) APTT (20.6-30.2) sec VBG pH (7.31-7.41) VBG pCO2 (41-51) mmHg VBG pO2 mmHg VBG HCO3 (23-28) mmol/L VBG Total CO2 (24-29) mmol/L VBG O2 Saturation % VBG Base Excess (-2-3) mmol/L VBG Lactate (<or=2.0) mmol/L Sodium (136-145) mmol/L Potassium (3.5-5.1) mmol/L Chloride (98-107) mmol/L Carbon Dioxide (20.0-31.0) mmol/L Anion Gap (3-11) mmol/L BUN (9-23) mg/dL Creatinine (0.73-1.18) mg/dL Est GFR (CKD-EPI 2020) (mL/min/1.73m2) Glucose (74-106) mg/dL Calcium (8.3-10.6) mg/dL Total Bilirubin (0.2-1.2) mg/dL AST (<34) U/L ALT (10-49) U/L Alkaline Phosphatase (46-116) U/L Ammonia (11-32) umol/L Troponin I 10 7 (<54) ng/L NT-Pro-B Natriuret Pep (<300) pg/mL Total Protein (5.7-8.2) g/dL Albumin (3.2-5.0) g/dL Procalcitonin ng/mL TSH (0.55-4.78) uIU/mL Urine Color Yellow (Yellow) Urine Clarity Sl Cloudy (Clear) Urine pH 6.0 (5-8) Ur Specific [place] 1.020 (1.005-1.025) Urine Protein 100 H (Neg-Trace) mg/dL Urine Ketones Negative (Negative) mg/dL Urine Blood Large H (Negative) Urine Nitrite Negative (Negative) Urine Bilirubin Negative (Negative) Urine Urobilinogen 0.2 (Up to 0.2) mg/dL Ur Leukocyte Esterase Small H (Negative) Urine RBC >50 H (0-2) HPF Urine WBC 10-20 H (0-5) HPF Ur Epithelial Cells Rare (Negative) HPF Urine Crystals Negative (Negative) HPF Urine Bacteria Rare (Negative) HPF Urine Mucus Moderate (Negative) Urine Other Few Yeast (Negative) Ur Culture Indicated? Yes Urine Glucose Negative (Negative) mg/dL COVID-19 Source Pending SARS-CoV-2 (PCR) Pending Influenza Type A (PCR) Pending Influenza Type B (PCR) Pending RSV (PCR) Pending 01/23/25 Range/Units 18:48 WBC 8.72 (4.4-10.8) 10^3/uL RBC 5.07 (4.36-5.78) 10^6/uL Hgb 13.7 (13.5-17.5) g/dL Hct 43.5 (40.0-50.0) % MCV 86 (80-95) fL MCH 27.0 (27.0-33.0) pg MCHC 31.5 L (32.0-36.0) % RDW 16.4 H (11.8-14.1) % Plt Count 150 (130-400) 10^3/uL MPV 9.3 (8.0-11.0) fL Immature Gran % 1.1 % Neutrophils % 83.4 % Lymphocytes % 8.0 % Monocytes % 6.5 % Eosinophils % 0.5 % Basophils % 0.5 % Nucleated RBC % 0.0 (0.0-0.3) % Absolute Neutrophils 7.27 H (1.2-6.7) 10^3/uL Absolute Lymphocytes 0.70 L (1.2-3.4) 10^3/uL Absolute Monocytes 0.57 (0.1-0.8) 10^3/uL Absolute Eosinophils 0.04 (0.0-0.7) 10^3/uL Absolute Basophils 0.04 (0.0-0.2) 10^3/uL PT 10.0 (9.1-11.1) sec INR 1.0 (0.9-1.1) APTT 25.2 (20.6-30.2) sec VBG pH 7.37 (7.31-7.41) VBG pCO2 53 H (41-51) mmHg VBG pO2 47 mmHg VBG HCO3 31 H (23-28) mmol/L VBG Total CO2 28 (24-29) mmol/L VBG O2 Saturation 81 % VBG Base Excess 6 H (-2-3) mmol/L VBG Lactate 2.2 H* (<or=2.0) mmol/L Sodium 141 (136-145) mmol/L Potassium 4.6 (3.5-5.1) mmol/L Chloride 103 (98-107) mmol/L Carbon Dioxide 29.7 (20.0-31.0) mmol/L Anion Gap 8.3 (3-11) mmol/L BUN 30 H (9-23) mg/dL Creatinine 1.04 (0.73-1.18) mg/dL Est GFR (CKD-EPI 2020) 67.83 (mL/min/1.73m2) Glucose 127 H (74-106) mg/dL Calcium 8.4 (8.3-10.6) mg/dL Total Bilirubin 1.3 H (0.2-1.2) mg/dL AST 15 (<34) U/L ALT 9 L (10-49) U/L Alkaline Phosphatase 59 (46-116) U/L Ammonia 15 (11-32) umol/L Troponin I 6 (<54) ng/L NT-Pro-B Natriuret Pep 2847 H (<300) pg/mL Total Protein 7.1 (5.7-8.2) g/dL Albumin 4.1 (3.2-5.0) g/dL Procalcitonin < 0.10 ng/mL TSH 0.90 (0.55-4.78) uIU/mL Urine Color (Yellow) Urine Clarity (Clear) Urine pH (5-8) Ur Specific [place] (1.005-1.025) Urine Protein (Neg-Trace) mg/dL Urine Ketones (Negative) mg/dL Urine Blood (Negative) Urine Nitrite (Negative) Urine Bilirubin (Negative) Urine Urobilinogen (Up to 0.2) mg/dL Ur Leukocyte Esterase (Negative) Urine RBC (0-2) HPF Urine WBC (0-5) HPF Ur Epithelial Cells (Negative) HPF Urine Crystals (Negative) HPF Urine Bacteria (Negative) HPF Urine Mucus (Negative) Urine Other (Negative) Ur Culture Indicated? Urine Glucose (Negative) mg/dL COVID-19 Source SARS-CoV-2 (PCR) Influenza Type A (PCR) Influenza Type B (PCR) RSV (PCR) 01/23/25 19:45 Urine Culture - Pending Urine - Reflex from Ua 01/23/25 18:40 Blood Culture - Pending Blood 01/23/25 18:48 Blood Culture - Pending Blood Intake and Output - 24 Hour Total 01/23/25 18:14 thru 01/23/25 21:37 Intake Total 1949 Balance 1949 Weight 114.759 kg Intake: IV 1950 Falls Risk Assessment Contributing Factors Unstable,Impairments 01/23/25 20:11 Ambulatory Aids Uses ambulatory device + 01/23/25 20:11 Tubes/Lines With any additional score 12/14/25 20:11 Gait Evaluation W/any additional score 01/23/25 20:11 Fall Total Score 76 01/23/25 20:11 Level of Risk Maximum Risk 01/23/25 20:11 Problems (Last Reviewed 01/23/25 @ 21:17 by Ricardo Amaral) Severe sepsis (Acute) Aspiration pneumonia (Acute) Acute hypoxemic respiratory failure (Acute) Hyperparathyroidism (Chronic) Pulmonary emboli (Chronic) Sepsis (Acute) HTN (hypertension) (Chronic) Attestation Statement: By documenting the first initial, last name, and credentials of the reporting nurse below, both parties acknowledge that all relevant information regarding the patient handoff has been communicated, and that all questions have been addressed to ensure continuity and safety of care. Additional Patient Information/Comments: Brought to ED by Zac cuba, after staff at [facility] noticed change in patient. Had vomited this AM during breakfast, and then had mental status changes. Sepsis alert noted, and being treated for aspiration pna. Did have some hypotension, that is now resolved, and mental status has improved with treatment of antibiotics, and fluids. Is on oxymask at 2L. Has Neph tube, with not much urine output. Maybe 100 cc's. Has not been out of bed, but would need full assistance to transfer. Is on hover tahir. Also has had a gram of tylenol in ED. Report Received From: Josesito Luevano RN
[2025-01-24] VITALS (51 sets, daily range): BP systolic 105–192; BP diastolic 59–96; PULSE 68–87; RESP 15–31; TEMP 36.6–38; O2SAT 88–98
[2025-01-24] MEDS: CEFEPIME 2 GM in Normal Saline 100 ML IVPB ×2 (03:49→16:12)
[2025-01-24 05:54] LABS: BE (Venous) 4 mmol/L (-2-3); HCO3 (Venous) 30 mmol/L (23-28); O2 Sat (Venous) 80 %; TCO2 (Venous) 27 mmol/L (24-29); pCO2 (Venous) 57 mmHg (41-51); pO2 (Venous) 47 mmHg
[2025-01-24 05:55] LABS: HCT 40.0 % (40.0-50.0); HGB 12.3 g/dL (13.5-17.5); MCH 26.7 pg (27.0-33.0); MCHC 30.8 % (32.0-36.0); MCV 87 fL (80-95); MPV 9.2 fL (8.0-11.0); Platelet Count 114 10^3/uL (130-400); RBC 4.61 10^6/uL (4.36-5.78); RDW 16.8 % (11.8-14.1); RDW-SD 53.1 fL; WBC 9.20 10^3/uL (4.4-10.8)
[2025-01-24 06:20] LABS: ALT 8 U/L (10-49); AST 14 U/L (<34); Albumin 3.5 g/dL (3.2-5.0); Alkaline Phosphatase 49 U/L (46-116); Anion Gap 8.5 mmol/L (3-11); BUN 29 mg/dL (9-23); Bilirubin, Total 1.4 mg/dL (0.2-1.2); CO2 29.5 mmol/L (20.0-31.0); Calcium 7.6 mg/dL (8.3-10.6); Chloride 106 mmol/L (98-107); Glucose 104 mg/dL (74-106); Potassium 4.4 mmol/L (3.5-5.1); Sodium 144 mmol/L (136-145); Total Protein 6.2 g/dL (5.7-8.2)
--- NOTE | 2025-01-24 08:16 | INITIAL_ITS ---
Date of service: 01/24/25 Time of Service: 08:21 Care Management Initial Assmt Initial Assessment Reason for Hospitalization: sepsis Functional Status/Living Situation Patient Presentation: Raffy has been at [facility] since April,. Prior to that he lived with his Reny in a single family home in [facility]. He has no children. 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 Raffy originally went to the [facility] for short term rehab. He has never been able to regain his independence however, but his goal is still to return home. Raffy requires some assistance with ADLs but he can feed himself and help with bathing and dressing and oral care. He is able to ambulate for short distances with a walker and reposition himself as needed. Per the staff at the [facility], he has made great progress. When he arrived last April he was essentially bed bound. Most recently he has been able to ambulate up to 25 feet with his walker. They are hopeful he will be able to return home sometime in the next couple of months. Raffy was admitted on 01/23/25 with sepsis, possibly from aspiration. At the [facility] he spiked a fever then vomited and there is concern he may have aspirated. He is febrile (38 C) hypotensive and tachycardic but is saturating well on room air. Raffy was sitting up in a chair when CM met with him. He responded to his name but was not very talkative. Raffy informed CM that he is very, very tired and just wants to rest. He did report that he is still at the [facility] and likes it there. He was unsure if or when he might be able to return home but hopes he can. Per nursing, Raffy has been a bit confused today. He knows his name and where he is but is disoriented as to time (month, date). He has been drinking well today however his solid food intake has been poor. CM will follow. Town of Residence: The [facility] in [place] Resides with: Other Significant Other/Family: Local Natural Supports: Reny Employment Status: Retired Instrumental Activities of Daily Living (ADLs): Requires support Medications Medication Management: No Issues/Barriers identified Physical Functioning/Mobility Assistive Device: walker Advance Directives Advance Directives: Do you have an Advance Directive: Y , 09:11 AD On File at [facility]: Y 06/29/20, 09:11 Date Asked 12/23/24 01/14/25, 11:13 AD Date Reviewed 12/02/24 12/02/24, 09:54 COLST On File at [facility] No 09/18/24, 16:00 COLST Date Scanned Code Status Resuscitation Status Full Code Insurance Coverage/Financial Issues Insurance: Medicare [employer] supplement Care Team Visit Care Team Role Provider Type Anne-Marie Wright Primary Care Provider NON-[facility] STAFF PHYSICIAN Dallin Glaser, DO Emergency Provider [facility] STAFF PHYSICIAN Ricardo Amaral Admit Provider NON-[facility] STAFF PHYSICIAN Attending Provider Discharge Potential Discharge Needs: Other Anticipated Barriers to Discharge: None Identified Patient/Family Education Needs: Review discharge instructions, discuss Ask Me Three Transportation: RCT Plan: Anticipate Raffy will return to the [facility] when medically cleared. He will follow up with facility providers and plan of care and transport via RCT. CM will continue to support discharge planning efforts. Social Determinants of Health Screening Will the Patient Participate in the Screening?: Unable to obtain PFSH All Active Problems Severe sepsis (Acute) Aspiration pneumonia (Acute) Acute hypoxemic respiratory failure (Acute) Left ureteral injury (Acute) [place] [facility] [place] Discharge planning issues (Acute) Hyperparathyroidism (Chronic) Stenosis of right vertebral artery (Chronic) Acute alteration in mental status (Acute) Urinary tract infection associated with nephrostomy catheter (Acute) Complicated UTI (urinary tract infection) (Acute) Renal calculus, left (Chronic) Hydronephrosis of left kidney (Chronic) Nail dystrophy (Acute) Yeast UTI (Acute) Confusion associated with infection (Acute) Confusion (Acute) Abnormal urinalysis (Acute) Pulmonary emboli (Chronic) Sepsis (Acute) Hematuria (Acute) Acute hypoxic respiratory failure (Acute) Edema of both lower extremities (Acute) Well-managed, with exercise/activity; b/l general .. trial compression and lasix Elevated parathyroid hormone (Acute) Osteoarthritis of right knee (Acute) Steroid injection: 01/14/2025; 03/04/24; 05/19/2023 Hypercalcemia (Acute) CKD (chronic kidney disease) stage 3, GFR 30-59 ml/min (Acute) Stage 3, 2022, with LALA (GFR <30!) 2' over-diures.. Hx stage 2-3 (2021) Edema of foot (Acute) Knee pain, bilateral (Acute) ? 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 (Worsening, re-start furosemide, 10/2020) Renal calculus Hematuria: CT (01/09/23) vs. CT (04/27/2022):.. largest calculus in the left kidney has now migrated to the upper left ureter/UPJ level (prob responsible for hematuria)..no obvious dilatation of the left collecting system above this level..another calculus again noted in the left left kidney lower pole calyx (no changed position)..previously present 3 mm calculus in the bladder no longer seen and has most probably passed. 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 07/2021 Left knee pain Acute on chronic. Not a surgical candidate. Cane helping - may need training.. BPH w/o urinary obs/LUTS (02/15/11) nocturiaX1-2; INCR 3X 09/2012 Acute on chronic renal failure Acute exacerbation of congestive heart failure Hosp; resolved .. but with too much fluid restriction post hosp! Bakers cyst Rt, 4cm.. incidental finding on US DVT (deep venous thrombosis) New DVT, 02/2021. Xarelto started. Resolved, Eliquis D/C'd 07/2020 by Surg. C. 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 denies this stated that this was due to an interaction a year ago where having the masks on and he his hard of hearing they stated he had dementia which his and current PCP stated he does not. 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 Taylor started him on HCTZ 2005. High BP readings @ ophtho, urol . turns out to be 2' finesteride, Dr. Smallwood d/c'd .. will follow up in July 2018. 125/85 today, 06/2018, ik. Surgical History Hx of cataract removal with insertion of prosthetic lens 12/11/20 [place], [facility] Posterior subcapsular age-related cataract, right eye Nuclear sclerotic cataract of right eye S/P cholecystectomy (01/24/20) S/P ERCP Arthroscopy (02/10/84) in [place], Left knee Family History Son Age: 62 No problems noted. 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
[2025-01-24] MEDS: Docusate Sodium 100 MG CAP PO (08:21)
[2025-01-24] MEDS: Metoprolol 12.5 MG TAB PO (08:21)
[2025-01-24] MEDS: Normal Saline Flush 10 ML SYR IVP ×3 (08:21→20:44)
[2025-01-24] MEDS: Omeprazole 20 MG CAPCR PO (08:21)
[2025-01-24] MEDS: Acetaminophen 325 MG TAB 650 MG PO (08:21)
[2025-01-24] MEDS: Calcitriol 0.25 MCG CAP PO (08:21)
[2025-01-24] MEDS: Calcitonin-Salmon, Synthetic 3.7 ML BTL NS (08:33)
[2025-01-24] MEDS: Polyethylene Glycol 3350 17 GM PACKET PO ×2 (08:33→20:44)
[2025-01-24] MEDS: Diclofenac 1% Gel 100 GM TUBE TP (08:35)
--- NOTE | 2025-01-24 11:18 | PHA.REVIEW2 ---
Pharmacy Admission Review Admission Clinical Review Admission Pharmacy Review: Severe sepsis (Acute) Aspiration pneumonia (Acute) Acute hypoxemic respiratory failure (Acute) Sepsis (Acute) amlodipine Adverse Reaction (Mild, Verified 01/23/25 19:15) nightmares/restless sleep hydrochlorothiazide Adverse Reaction (Mild, Verified 01/23/25 19:15) possible Erectile dysfunction finasteride Adverse Reaction (Verified 01/23/25 19:15) Hypertension Resuscitation Status Full Code Height 5 ft 8 in Weight 114.6 kg Pharmacy Admission Review Renal Dosing Renal Dosing: BUN 29 mg/dL (9-23) H 01/24/25 05:40 Creatinine 1.11 mg/dL (0.73-1.18) 01/24/25 05:40 Medications needing adjustments: Intervened (CrCl 59 mL/min, SCr increased from 1.04) List of meds needing interventions: Changed cefepime frequency from q8h to q12h due to CrCl < 60 Anticoagulation Anticoagulation: Hgb 12.3 g/dL (13.5-17.5) L 01/24/25 05:40 Hct 40.0 % (40.0-50.0) 01/24/25 05:40 Plt Count 114 10^3/uL (130-400) L 01/24/25 05:40 INR 1.0 (0.9-1.1) 01/23/25 18:48 Creatinine 1.11 mg/dL (0.73-1.18) 01/24/25 05:40 DVT Prophylaxis: Reviewed (Hgb decreased from 13.7) Medications: Rivaroxaban (10mg daily) Relevant Labs Relevant Labs: Sodium 144 mmol/L (136-145) 01/24/25 05:40 Potassium 4.4 mmol/L (3.5-5.1) 01/24/25 05:40 Chloride 106 mmol/L (98-107) 01/24/25 05:40 Electrolytes, C-Reactive P, ESR: Reviewed Cardiac Review Cardiac Review: Troponin I 10 ng/L (<54) 01/23/25 22:00 NT-Pro-B Natriuret Pep 2847 pg/mL (<300) H 01/23/25 18:48 Blood Pressure 164/90 0801 Blood Pressure 163/82 0750 Blood Pressure 163/82 0747 Blood Pressure 152/76 0601 Blood Pressure 155/84 0401 Blood Pressure 105/59 0201 Blood Pressure 106/65 0001 BP, HR, EF%: Reviewed (HR WNL) List meds needing interventions: Has order for metoprolol 12.5mg BID QTc Review QTc: Reviewed (409 from 01/23/25) IV to PO Switch IV Medications: Reviewed (azithromycin, cefepime and vancomycin) Home Meds Home Med List reviewed: Reviewed Relevent Home Meds Not ordered & why?: furosemide (on hold per H+P) Current Meds Current Medication Order Review: Intervened Comments: Changed timing of omeprazole from 0830 to 0730 per pharmacy protocol Pharmacy Antibiotic Review Relevant Labs: Relevant Labs 01/23/25 18:48 Procalcitonin < 0.10 WBC 9.20 10^3/uL (4.4-10.8) 01/24/25 05:40 Procalcitonin < 0.10 ng/mL 01/23/25 18:48 Temperature 37.8 C Temperature 38 C Temperature 38 C Temperature 36.6 C Temperature 36.7 C Pharmacy Antibiotic Activity: C/S review and Reviewed, no change Comments: Patient is on vancomycin, cefepime and azithromycin, day 1, for aspiration pneumonia/sepsis. Current vancomycin dose is 1500mg q24h with estimated AUC of 502. Level ordered for today at 1600, will adjust dose as needed based on results. Blood and urine cultures pending.
--- NOTE | 2025-01-24 14:25 | PGE_ITS ---
Date of Service Date of service: 01/24/25 Time of Service: 08:00 Assessment and Plan Assessment and plan (1) Sepsis: Start date: 01/23/25 Status: Acute Assessment and plan: Improving, still febrile Likely secondary to aspiration pneumonia Continue antibiotics, O2 supplementation (2) Pneumonia: Start date: 01/23/25 Assessment and plan: As above, improving (3) Pulmonary emboli: Status: Chronic Assessment and plan: Continue Xarelto. (4) HTN (hypertension): Status: Chronic Assessment and plan: Hold Lasix for now and watching for fluid overload. (5) Hyperparathyroidism: Status: Chronic Assessment and plan: Continue outpatient medical therapy. (6) Hydronephrosis of left kidney: Status: Chronic Assessment and plan: Patient does have left nephrostomy tube. Monitor output. Subjective Subjective Interval history since last seen: Mr. Mobley is comfortable in bed. Much improved oxygenation. Exam Narrative Exam Narrative: General: This is a pleasant man in no distress HEENT: Normocephalic, atraumatic CV: RRR with distal nonpitting edema Resp: CTAB Abd: soft, NTND Back: left nephrostomy tube in place MSK: voluntary motion x4 Neuro: awake, alert, no focal deficits Objective Last Vital Signs Temp 36.8 C 01/24/25 14:13 Pulse 73 01/24/25 11:55 Resp 19 01/24/25 11:55 BP 124/77 01/24/25 11:55 Pulse Ox 93 01/24/25 11:55 Laboratory Results - last 24 hr 01/23/25 01/23/25 01/23/25 18:48 19:45 21:42 WBC 8.72 RBC 5.07 Hgb 13.7 Hct 43.5 MCV 86 MCH 27.0 MCHC 31.5 L RDW 16.4 H Plt Count 150 MPV 9.3 Immature Gran % 1.1 Neutrophils % 83.4 Lymphocytes % 8.0 Monocytes % 6.5 Eosinophils % 0.5 Basophils % 0.5 Nucleated RBC % 0.0 Absolute Neutrophils 7.27 H Absolute Lymphocytes 0.70 L Absolute Monocytes 0.57 Absolute Eosinophils 0.04 Absolute Basophils 0.04 PT 10.0 INR 1.0 APTT 25.2 VBG pH 7.37 VBG pCO2 53 H VBG pO2 47 VBG HCO3 31 H VBG Total CO2 28 VBG O2 Saturation 81 VBG Base Excess 6 H VBG Lactate 2.2 H* Sodium 141 Potassium 4.6 Chloride 103 Carbon Dioxide 29.7 Anion Gap 8.3 BUN 30 H Creatinine 1.04 Est GFR (CKD-EPI 2020) 67.83 Glucose 127 H Calcium 8.4 Total Bilirubin 1.3 H AST 15 ALT 9 L Alkaline Phosphatase 59 Ammonia 15 Troponin I 6 7 NT-Pro-B Natriuret Pep 2847 H Total Protein 7.1 Albumin 4.1 Procalcitonin < 0.10 TSH 0.90 Urine Color Yellow Urine Clarity Sl Cloudy Urine pH 6.0 Ur Specific [place] 1.020 Urine Protein 100 H Urine Ketones Negative Urine Blood Large H Urine Nitrite Negative Urine Bilirubin Negative Urine Urobilinogen 0.2 Ur Leukocyte Esterase Small H Urine RBC >50 H Urine WBC 10-20 H Ur Epithelial Cells Rare Urine Crystals Negative Urine Bacteria Rare Urine Mucus Moderate Urine Other Few Yeast Ur Culture Indicated? Yes Urine Glucose Negative COVID-19 Source Nasopharynx SARS-CoV-2 (PCR) Negative Influenza Type A (PCR) Negative Influenza Type B (PCR) Negative RSV (PCR) Negative 01/23/25 01/24/25 22:00 05:40 WBC 9.20 RBC 4.61 Hgb 12.3 L Hct 40.0 MCV 87 MCH 26.7 L MCHC 30.8 L RDW 16.8 H Plt Count 114 L MPV 9.2 Immature Gran % Neutrophils % Lymphocytes % Monocytes % Eosinophils % Basophils % Nucleated RBC % Absolute Neutrophils Absolute Lymphocytes Absolute Monocytes Absolute Eosinophils Absolute Basophils PT INR APTT VBG pH 7.33 VBG pCO2 57 H VBG pO2 47 VBG HCO3 30 H VBG Total CO2 27 VBG O2 Saturation 80 VBG Base Excess 4 H VBG Lactate 1.6 Sodium 144 Potassium 4.4 Chloride 106 Carbon Dioxide 29.5 Anion Gap 8.5 BUN 29 H Creatinine 1.11 Est GFR (CKD-EPI 2020) 62.92 Glucose 104 Calcium 7.6 L Total Bilirubin 1.4 H AST 14 ALT 8 L Alkaline Phosphatase 49 Ammonia Troponin I 10 NT-Pro-B Natriuret Pep Total Protein 6.2 Albumin 3.5 Procalcitonin TSH Urine Color Urine Clarity Urine pH Ur Specific [place] Urine Protein Urine Ketones Urine Blood Urine Nitrite Urine Bilirubin Urine Urobilinogen Ur Leukocyte Esterase Urine RBC Urine WBC Ur Epithelial Cells Urine Crystals Urine Bacteria Urine Mucus Urine Other Ur Culture Indicated? Urine Glucose COVID-19 Source SARS-CoV-2 (PCR) Influenza Type A (PCR) Influenza Type B (PCR) RSV (PCR) VTE Prohylaxis Risk Level: Moderate/High Risk Contraindications: None Prophylaxis: Patient anticoagulated and Mechanical Time Spent with Patient Time Spent with Patient: 25-34 minutes Time was spent: preparing to see the patient(eg.review tests), obtaining and/or reviewing separately otained hiistory, ordering medications,tests, procedures, referring, communicating with other health special needs child caregiver, indepentently interpreting results, counseling the patient and care coordination
--- NOTE | 2025-01-24 15:01 | W.PC.ACHO ---
Registration Status: ADM IN Primary Language: Preferred Language: Romanian ED Information & Data Chief Complaint AMS/LOC 01/23/25 19:53 Chief Complaint AMS/LOC 01/23/25 18:42 Triage Note presented [facility] 01/23/25 18:22 with decreased responsiveness and altered mental status Medical / Surgical History (Last Reviewed 01/24/25 @ 02:21 by Ricardo Amaral) Pneumonia Leg edema Renal calculus Gout due to renal impairment involving toe of right foot Renal insufficiency Left knee pain BPH w/o urinary obs/LUTS (02/15/11) Acute on chronic renal failure Acute exacerbation of congestive heart failure Bakers cyst DVT (deep venous thrombosis) C. 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) Benign hypertension (12/09/05) (Last Reviewed 01/24/25 @ 02:21 by Ricardo Amaral) Hx of cataract removal with insertion of prosthetic lens Posterior subcapsular age-related cataract, right eye Nuclear sclerotic cataract of right eye S/P cholecystectomy (01/24/20) S/P ERCP Arthroscopy (02/10/84) Most Recent Vital Signs Temperature 37.0 C 01/24/25 14:55 Temperature Source Temporal Artery Scan 01/24/25 14:55 Pulse 86 01/24/25 14:55 Pulse 81 01/24/25 10:09 Respiratory Rate 20 01/24/25 14:55 Respiratory Effort Normal 01/24/25 00:10 Respiratory Depth Shallow 01/24/25 00:10 Respiratory Pattern Tachypnea 01/24/25 00:10 Blood Pressure 192/96 H 01/24/25 14:55 Blood Pressure Mean 128 01/24/25 14:55 Blood Pressure Position Supine 01/23/25 19:14 Pulse Oximetry 95 01/24/25 14:55 Oxygen Delivery Method Room Air 01/24/25 14:55 Oxygen Flow Rate 0 01/24/25 14:55 Pain Level 0 01/24/25 11:56 Comment Nurse Fabi notify and also charge nurse Wan. 01/24/25 14:55 Allergies amlodipine Adverse Reaction (Mild, Verified 01/23/25 19:15) nightmares/restless sleep hydrochlorothiazide Adverse Reaction (Mild, Verified 01/23/25 19:15) possible Erectile dysfunction finasteride Adverse Reaction (Verified 01/23/25 19:15) Hypertension Precautions Isolation Standard precaution 01/23/25 19:53 Active Medications Generic Name Dose Route Start Last Admin Trade Name Freq PRN Reason Stop Dose Admin Acetaminophen 650 mg 01/24/25 00:02 01/24/25 08:21 Acetaminophen 325 Mg Tab PO 650 mg Q4H PRN PRN Administration Calcitonin [place] 0 ml 01/24/25 08:30 01/24/25 08:33 Calcitonin-[place], Synthetic 3.7 Ml Btl NS 1 spray DAILY PIPER Administration Calcitriol 0.25 mcg 01/24/25 08:30 01/24/25 08:21 Calcitriol 0.25 Mcg Cap PO 0.25 mcg DAILY PIPER Administration Diclofenac Sodium 4 gm 01/24/25 08:30 01/24/25 08:35 Diclofenac 1% Gel 100 Gm Tube TP 1 applic DAILY PIPER Administration Docusate Sodium 100 mg 01/24/25 08:30 01/24/25 08:21 Docusate Sodium 100 Mg Cap PO 100 mg DAILY PIPER Administration Metoprolol Tartrate 12.5 mg 01/24/25 08:30 01/24/25 08:21 Metoprolol 12.5 Mg Tab PO 12.5 mg BID PIPER Administration Omeprazole 20 mg 01/24/25 07:30 01/24/25 08:21 Omeprazole 20 Mg Capcr PO 20 mg DAILY@0730 PIPER Administration Polyethylene Glycol 17 gm 01/24/25 08:30 01/24/25 08:33 Polyethylene Glycol 3350 17 Gm Packet PO 17 gm BID PIPER Administration Sodium Chloride 0 ml 01/23/25 18:27 01/24/25 08:22 Normal Saline Flush 10 Ml Syr IVP 10 ml PRN PRN Administration Sodium Chloride 0 ml 01/23/25 20:00 01/24/25 08:21 Normal Saline Flush 10 Ml Syr IVP 10 ml BID PIPER Administration IV IV Catheter Type [Left Wrist] Saline Lock IV Catheter Type [Right Saline Lock Forearm] IV Catheter Gauge [Left Wrist] 18 IV Catheter Gauge [Right 18 Forearm] Diet Orders Category Date Time Status Heart Healthy Eating [DIET] Nutrition 01/24/25 Breakfast Active Diagnostics 01/24/25 01/24/25 01/23/25 Range/Units 16:00 05:40 22:00 WBC 9.20 (4.4-10.8) 10^3/uL RBC 4.61 (4.36-5.78) 10^6/uL Hgb 12.3 L (13.5-17.5) g/dL Hct 40.0 (40.0-50.0) % MCV 87 (80-95) fL MCH 26.7 L (27.0-33.0) pg MCHC 30.8 L (32.0-36.0) % RDW 16.8 H (11.8-14.1) % Plt Count 114 L (130-400) 10^3/uL MPV 9.2 (8.0-11.0) fL Immature Gran % % Neutrophils % % Lymphocytes % % Monocytes % % Eosinophils % % Basophils % % Nucleated RBC % (0.0-0.3) % Absolute Neutrophils (1.2-6.7) 10^3/uL Absolute Lymphocytes (1.2-3.4) 10^3/uL Absolute Monocytes (0.1-0.8) 10^3/uL Absolute Eosinophils (0.0-0.7) 10^3/uL Absolute Basophils (0.0-0.2) 10^3/uL PT (9.1-11.1) sec INR (0.9-1.1) APTT (20.6-30.2) sec VBG pH 7.33 (7.31-7.41) VBG pCO2 57 H (41-51) mmHg VBG pO2 47 mmHg VBG HCO3 30 H (23-28) mmol/L VBG Total CO2 27 (24-29) mmol/L VBG O2 Saturation 80 % VBG Base Excess 4 H (-2-3) mmol/L VBG Lactate 1.6 (<or=2.0) mmol/L Sodium 144 (136-145) mmol/L Potassium 4.4 (3.5-5.1) mmol/L Chloride 106 (98-107) mmol/L Carbon Dioxide 29.5 (20.0-31.0) mmol/L Anion Gap 8.5 (3-11) mmol/L BUN 29 H (9-23) mg/dL Creatinine 1.11 (0.73-1.18) mg/dL Est GFR (CKD-EPI 2020) 62.92 (mL/min/1.73m2) Glucose 104 (74-106) mg/dL Calcium 7.6 L (8.3-10.6) mg/dL Total Bilirubin 1.4 H (0.2-1.2) mg/dL AST 14 (<34) U/L ALT 8 L (10-49) U/L Alkaline Phosphatase 49 (46-116) U/L Ammonia (11-32) umol/L Troponin I 10 (<54) ng/L NT-Pro-B Natriuret Pep (<300) pg/mL Total Protein 6.2 (5.7-8.2) g/dL Albumin 3.5 (3.2-5.0) g/dL Procalcitonin ng/mL TSH (0.55-4.78) uIU/mL Urine Color (Yellow) Urine Clarity (Clear) Urine pH (5-8) Ur Specific [place] (1.005-1.025) Urine Protein (Neg-Trace) mg/dL Urine Ketones (Negative) mg/dL Urine Blood (Negative) Urine Nitrite (Negative) Urine Bilirubin (Negative) Urine Urobilinogen (Up to 0.2) mg/dL Ur Leukocyte Esterase (Negative) Urine RBC (0-2) HPF Urine WBC (0-5) HPF Ur Epithelial Cells (Negative) HPF Urine Crystals (Negative) HPF Urine Bacteria (Negative) HPF Urine Mucus (Negative) Urine Other (Negative) Ur Culture Indicated? Urine Glucose (Negative) mg/dL Random Vancomycin Pending COVID-19 Source SARS-CoV-2 (PCR) (Negative) Influenza Type A (PCR) (Negative) Influenza Type B (PCR) (Negative) RSV (PCR) (Negative) 01/23/25 01/23/25 01/23/25 Range/Units 21:42 19:45 18:48 WBC 8.72 (4.4-10.8) 10^3/uL RBC 5.07 (4.36-5.78) 10^6/uL Hgb 13.7 (13.5-17.5) g/dL Hct 43.5 (40.0-50.0) % MCV 86 (80-95) fL MCH 27.0 (27.0-33.0) pg MCHC 31.5 L (32.0-36.0) % RDW 16.4 H (11.8-14.1) % Plt Count 150 (130-400) 10^3/uL MPV 9.3 (8.0-11.0) fL Immature Gran % 1.1 % Neutrophils % 83.4 % Lymphocytes % 8.0 % Monocytes % 6.5 % Eosinophils % 0.5 % Basophils % 0.5 % Nucleated RBC % 0.0 (0.0-0.3) % Absolute Neutrophils 7.27 H (1.2-6.7) 10^3/uL Absolute Lymphocytes 0.70 L (1.2-3.4) 10^3/uL Absolute Monocytes 0.57 (0.1-0.8) 10^3/uL Absolute Eosinophils 0.04 (0.0-0.7) 10^3/uL Absolute Basophils 0.04 (0.0-0.2) 10^3/uL PT 10.0 (9.1-11.1) sec INR 1.0 (0.9-1.1) APTT 25.2 (20.6-30.2) sec VBG pH 7.37 (7.31-7.41) VBG pCO2 53 H (41-51) mmHg VBG pO2 47 mmHg VBG HCO3 31 H (23-28) mmol/L VBG Total CO2 28 (24-29) mmol/L VBG O2 Saturation 81 % VBG Base Excess 6 H (-2-3) mmol/L VBG Lactate 2.2 H* (<or=2.0) mmol/L Sodium 141 (136-145) mmol/L Potassium 4.6 (3.5-5.1) mmol/L Chloride 103 (98-107) mmol/L Carbon Dioxide 29.7 (20.0-31.0) mmol/L Anion Gap 8.3 (3-11) mmol/L BUN 30 H (9-23) mg/dL Creatinine 1.04 (0.73-1.18) mg/dL Est GFR (CKD-EPI 2020) 67.83 (mL/min/1.73m2) Glucose 127 H (74-106) mg/dL Calcium 8.4 (8.3-10.6) mg/dL Total Bilirubin 1.3 H (0.2-1.2) mg/dL AST 15 (<34) U/L ALT 9 L (10-49) U/L Alkaline Phosphatase 59 (46-116) U/L Ammonia 15 (11-32) umol/L Troponin I 7 6 (<54) ng/L NT-Pro-B Natriuret Pep 2847 H (<300) pg/mL Total Protein 7.1 (5.7-8.2) g/dL Albumin 4.1 (3.2-5.0) g/dL Procalcitonin < 0.10 ng/mL TSH 0.90 (0.55-4.78) uIU/mL Urine Color Yellow (Yellow) Urine Clarity Sl Cloudy (Clear) Urine pH 6.0 (5-8) Ur Specific [place] 1.020 (1.005-1.025) Urine Protein 100 H (Neg-Trace) mg/dL Urine Ketones Negative (Negative) mg/dL Urine Blood Large H (Negative) Urine Nitrite Negative (Negative) Urine Bilirubin Negative (Negative) Urine Urobilinogen 0.2 (Up to 0.2) mg/dL Ur Leukocyte Esterase Small H (Negative) Urine RBC >50 H (0-2) HPF Urine WBC 10-20 H (0-5) HPF Ur Epithelial Cells Rare (Negative) HPF Urine Crystals Negative (Negative) HPF Urine Bacteria Rare (Negative) HPF Urine Mucus Moderate (Negative) Urine Other Few Yeast (Negative) Ur Culture Indicated? Yes Urine Glucose Negative (Negative) mg/dL Random Vancomycin COVID-19 Source Nasopharynx SARS-CoV-2 (PCR) Negative (Negative) Influenza Type A (PCR) Negative (Negative) Influenza Type B (PCR) Negative (Negative) RSV (PCR) Negative (Negative) 01/23/25 19:45 Urine Culture - Preliminary Urine - Reflex from Ua Gram negative alan 01/23/25 18:40 Blood Culture - Pending Blood 01/23/25 18:48 Blood Culture - Pending Blood Intake and Output - 24 Hour Total 01/23/25 18:14 thru 01/24/25 14:43 Intake Total 4100 Output Total 625 Balance 3475 Weight 114.6 kg Intake: IV 3070 Oral 1030 Output: Urine 625 Other: Urine Color Yellow Urine Appearance Clear Comment left nephrostomy tube. Falls Risk Assessment History of Falls No History 01/24/25 00:10 Contributing Factors No Factors 01/24/25 00:10 Ambulatory Aids Uses ambulatory device 01/24/25 00:10 Tubes/Lines With any additional score 01/24/25 00:10 Gait Evaluation W/no contributing factors 01/24/25 00:10 Cognition No cognitive impairment 01/24/25 00:10 Fall Total Score 45 01/24/25 00:10 Level of Risk Moderate Risk 01/24/25 00:10 Problems (Last Reviewed 01/24/25 @ 02:21 by Ricardo Amaral) Severe sepsis (Acute) Aspiration pneumonia (Acute) Acute hypoxemic respiratory failure (Acute) Hyperparathyroidism (Chronic) Hydronephrosis of left kidney (Chronic) Pulmonary emboli (Chronic) Sepsis (Acute) HTN (hypertension) (Chronic) Attestation Statement: By documenting the first initial, last name, and credentials of the reporting nurse below, both parties acknowledge that all relevant information regarding the patient handoff has been communicated, and that all questions have been addressed to ensure continuity and safety of care. Additional Patient Information/Comments: Pt downgraded from IC to medsurg. Pt escroted to floor by SOLUTION ENGINEER and nurse and oriented to room. Call ariza left within reach Report Received From: Dahlia, RN
[2025-01-24] MEDS: Metoprolol 25 MG TAB (15:46)
[2025-01-24 17:13] LABS: Vancomycin, Random 11.5 ug/mL
[2025-01-24] MEDS: Rivaroxaban 10 MG TABLET PO (20:44)
[2025-01-24] MEDS: AZITHROMYCIN 500 MG in Normal Saline 250 ML 250 MG IVPB (20:45)
[2025-01-24] MEDS: VANCOMYCIN/WATER (PEG) 1.5 GM/300 ML BAG IVPB (20:45)
[2025-01-24] MEDS: Metoprolol 12.5 MG TAB 25 MG PO (22:11)
[2025-01-25] VITALS (9 sets, daily range): BP systolic 99–180; BP diastolic 68–92; PULSE 64–78; RESP 16–20; TEMP 36.2–37; O2SAT 92–99
[2025-01-25] MEDS: CEFEPIME 2 GM in Normal Saline 100 ML IVPB ×2 (04:22→12:24)
[2025-01-25 06:54] LABS: HCT 38.8 % (40.0-50.0); HGB 12.2 g/dL (13.5-17.5); MCH 27.1 pg (27.0-33.0); MCHC 31.4 % (32.0-36.0); MCV 86 fL (80-95); MPV 9.8 fL (8.0-11.0); Platelet Count 124 10^3/uL (130-400); RBC 4.51 10^6/uL (4.36-5.78); RDW 16.5 % (11.8-14.1); RDW-SD 51.8 fL; WBC 7.62 10^3/uL (4.4-10.8)
[2025-01-25 07:15] LABS: ALT 9 U/L (10-49); AST 13 U/L (<34); Albumin 3.7 g/dL (3.2-5.0); Alkaline Phosphatase 48 U/L (46-116); Anion Gap 9.9 mmol/L (3-11); BUN 25 mg/dL (9-23); Bilirubin, Total 1.5 mg/dL (0.2-1.2); CO2 28.1 mmol/L (20.0-31.0); Calcium 8.1 mg/dL (8.3-10.6); Chloride 102 mmol/L (98-107); Glucose 81 mg/dL (74-106); Potassium 3.9 mmol/L (3.5-5.1); Sodium 140 mmol/L (136-145); Total Protein 6.6 g/dL (5.7-8.2)
[2025-01-25] MEDS: Omeprazole 20 MG CAPCR PO (09:03)
[2025-01-25] MEDS: Diclofenac 1% Gel 100 GM TUBE TP (09:03)
[2025-01-25] MEDS: Calcitriol 0.25 MCG CAP PO (09:03)
[2025-01-25] MEDS: Docusate Sodium 100 MG CAP PO (09:03)
[2025-01-25] MEDS: Normal Saline Flush 10 ML SYR IVP ×3 (09:04→21:40)
[2025-01-25] MEDS: Calcitonin-Salmon, Synthetic 3.7 ML BTL NS (09:04)
[2025-01-25] MEDS: Polyethylene Glycol 3350 17 GM PACKET PO ×2 (09:04→20:16)
--- NOTE | 2025-01-25 12:10 | PDOC.CMPRO ---
Date of service: 01/25/25 Time of Service: 15:02 Care Management Progress Note Progress Note Text Progress Note Text: Raffy was lying in bed and asleep when CM attempted to meet with him. Per report, he is currently on room air and is anticipated to be discharged home ([facility]) on oral antibiotics. He is also on precautions due to close family members reportedly testing positive for a neurovirus. CM provided an update to [facility] via email. Raffy is expected to return to [facility] once medically ready. CM will continue to follow. Discharge Potential Discharge Needs: PCP F/U Appt Anticipated Barriers to Discharge: None Identified Patient/Family Education Needs: Review discharge instructions, discuss Ask Me Three Transportation: RCT RCT Transportation: Wheel chair van Plan: Anticipate Raffy will return to the [facility] when medically cleared. He will follow up with facility providers and plan of care and transport via RCT. CM will continue to support discharge planning efforts. Social Determinants of Health Screening Will the Patient Participate in the Screening?: Unable to obtain
[2025-01-25] MEDS: Furosemide 40 MG/4 ML VIAL IVP (13:35)
--- NOTE | 2025-01-25 16:51 | W.PM.PROGNOT ---
Date of Service Date of service: 01/25/25 Time of Service: 08:00 Assessment and Plan Assessment and plan (1) HTN (hypertension): Status: Chronic Assessment and plan: Restarted home regimen. Patient did not receive 2 metoprolol doses and his pressures persisted with systolics in the 180's Close monitoring (2) Sepsis: Start date: 01/23/25 Status: Acute Assessment and plan: Fevers resolved and he is on room air Likely secondary to aspiration pneumonia Continue antibiotics (3) Pneumonia: Start date: 01/23/25 Assessment and plan: As above, improving (4) Pulmonary emboli: Status: Chronic Assessment and plan: Continue Xarelto. (5) Hyperparathyroidism: Status: Chronic Assessment and plan: Continue outpatient medical therapy. (6) Hydronephrosis of left kidney: Status: Chronic Assessment and plan: Patient does have left nephrostomy tube. Monitor output. Subjective Subjective Interval history since last seen: Mr. Mobley is comfortable in bed. Elevated blood pressures today, missed metoprolol doses Exam Narrative Exam Narrative: General: This is a pleasant man in no distress HEENT: Normocephalic, atraumatic CV: RRR with distal nonpitting edema Resp: CTAB Abd: soft, NTND Back: left nephrostomy tube in place MSK: voluntary motion x4 Neuro: awake, alert, no focal deficits Objective Last Vital Signs Temp 36.8 C 01/25/25 14:42 Pulse 73 01/25/25 14:42 Resp 18 01/25/25 14:42 BP 170/83 H 01/25/25 14:42 Pulse Ox 94 01/25/25 14:42 Laboratory Results - last 24 hr 01/24/25 01/25/25 16:35 06:18 WBC 7.62 RBC 4.51 Hgb 12.2 L Hct 38.8 L MCV 86 MCH 27.1 MCHC 31.4 L RDW 16.5 H Plt Count 124 L MPV 9.8 Sodium 140 Potassium 3.9 Chloride 102 Carbon Dioxide 28.1 Anion Gap 9.9 BUN 25 H Creatinine 1.02 Est GFR (CKD-EPI 2020) 69.37 Glucose 81 Calcium 8.1 L Total Bilirubin 1.5 H AST 13 ALT 9 L Alkaline Phosphatase 48 Total Protein 6.6 Albumin 3.7 Random Vancomycin 11.5 VTE Prohylaxis Risk Level: Moderate/High Risk Contraindications: None Prophylaxis: Patient anticoagulated and Mechanical Time Spent with Patient Time Spent with Patient: 25-34 minutes Time was spent: preparing to see the patient(eg.review tests), obtaining and/or reviewing separately otained hiistory, ordering medications,tests, procedures, referring, communicating with other health medicare sales executive, indepentently interpreting results, counseling the patient and care coordination
[2025-01-25] MEDS: AZITHROMYCIN 500 MG in Normal Saline 250 ML 250 MG IVPB (20:10)
[2025-01-25] MEDS: Metoprolol 12.5 MG TAB 25 MG PO (20:16)
[2025-01-25] MEDS: Rivaroxaban 10 MG TABLET PO (20:16)
[2025-01-25] MEDS: VANCOMYCIN/WATER (PEG) 1.5 GM/300 ML BAG IVPB (21:30)
[2025-01-26 06:03] VITALS: BP 161/79; PULSE 71; RESP 17; TEMP 36.5; O2SAT 94
[2025-01-26 07:31] LABS: HCT 36.7 % (40.0-50.0); HGB 12.1 g/dL (13.5-17.5); MCH 27.9 pg (27.0-33.0); MCHC 33.0 % (32.0-36.0); MCV 85 fL (80-95); MPV 9.8 fL (8.0-11.0); Platelet Count 119 10^3/uL (130-400); RBC 4.34 10^6/uL (4.36-5.78); RDW 15.9 % (11.8-14.1); RDW-SD 50.0 fL; WBC 7.01 10^3/uL (4.4-10.8)
[2025-01-26 07:52] VITALS: BP 178/84; PULSE 68; RESP 19; TEMP 36.5; O2SAT 93
[2025-01-26 07:55] LABS: ALT 8 U/L (10-49); AST 11 U/L (<34); Albumin 3.6 g/dL (3.2-5.0); Alkaline Phosphatase 48 U/L (46-116); Anion Gap 9.5 mmol/L (3-11); BUN 23 mg/dL (9-23); Bilirubin, Total 1.5 mg/dL (0.2-1.2); CO2 28.5 mmol/L (20.0-31.0); Calcium 8.4 mg/dL (8.3-10.6); Chloride 100 mmol/L (98-107); Glucose 91 mg/dL (74-106); Potassium 3.6 mmol/L (3.5-5.1); Sodium 138 mmol/L (136-145); Total Protein 6.5 g/dL (5.7-8.2)
[2025-01-26] MEDS: Docusate Sodium 100 MG CAP PO (08:42)
[2025-01-26] MEDS: Omeprazole 20 MG CAPCR PO (08:42)
[2025-01-26] MEDS: Furosemide 20 MG TAB PO (08:42)
[2025-01-26] MEDS: Metoprolol 25 MG TAB PO (08:42)
[2025-01-26] MEDS: Normal Saline Flush 10 ML SYR IVP (08:42)
[2025-01-26] MEDS: Calcitriol 0.25 MCG CAP PO (08:42)
[2025-01-26] MEDS: Polyethylene Glycol 3350 17 GM PACKET PO (08:55)
--- NOTE | 2025-01-26 09:56 | PDOC.CMPRO ---
Date of service: 01/26/25 Time of Service: 09:56 Care Management Progress Note Discharge Potential Discharge Needs: PCP F/U Appt Anticipated Barriers to Discharge: None Identified Patient/Family Education Needs: Review discharge instructions, discuss Ask Me Three Transportation: RCT Plan: Anticipate Raffy will return to the [facility] when medically cleared. He will follow up with facility providers and plan of care and transport via RCT. CM will continue to support discharge planning efforts. Social Determinants of Health Screening Will the Patient Participate in the Screening?: Unable to obtain
[2025-01-26 11:39] VITALS: BP 172/86; PULSE 66; RESP 19; TEMP 36.2; O2SAT 94
[2025-01-26] MEDS: Lactated Ringers 250 ML IV (11:44)
[2025-01-26] MEDS: Ergocalciferol 50000 UNITS CAP PO (12:40)
--- NOTE | 2025-01-26 13:04 | W.PM.DS.N ---
Date of service: 01/26/25 Time of Service: 08:00 DS: Diagnosis Discharge Diagnosis (1) Pneumonia: Asessment and Plan: Fevers resolved and he is on room air Sepsis secondary to likely aspiration pneumonia Sepsis resolved He received vancomycin and azithromycin while hospitalized At discharge he should continue antibiotics, augmentin for 3 days (2) Sepsis: Status: Resolved Asessment and Plan: Septic on admission, resolved on hospital day 2 (3) HTN (hypertension): Status: Chronic Asessment and Plan: Restarted home regimen. Some elevated pressures while hospitalized, as patient declined to accept medication (4) Hyperparathyroidism: Status: Chronic Asessment and Plan: Continue outpatient medical therapy. (5) Hydronephrosis of left kidney: Status: Chronic Asessment and Plan: Patient does have left nephrostomy tube. Monitor output. (6) History of pulmonary embolism: Status: Acute Asessment and Plan: Continue home rivaroxaban. Discharge Plan Disposition Patient Disposition: Custodial Facility(SNF) Anticipated Discharge Date/Time: 01/26/25 12:49 Condition: Improving Discharge Details Reason For Visit: Aspiration Pneumonia with Hypoxic Respiratory Fail Admit Date/Time: 01/23/25 21:37 Admit Provider: Ricardo Amaral Attending Provider: Ricardo Amaral Primary Care Provider: Anne-Marie Wright Hospital Course Hospital Course: Raffy Mobley is an 84 year old man presenting January 23 with encephalopathy, brought in from the [facility]. Caretakers reported decreased responsiveness. In the ED he was found to meet septic criteria and he was mildly hypoxic. He was started on antibiotics for likely aspiration pneumonia and admitted for supportive care. He improved and is now comfortable on room air. He is safe to return to his facility, to complete his antibiotic course on augmentin. Home Meds and New Rx's Prescriptions: New amoxicillin-pot clavulanate 875-125 mg tablet 1 tab PO Q12H Qty: 6 0RF Continued cholecalciferol (vitamin D3) 1,250 mcg (50,000 unit) capsule 1,250 mcg PO QWEEK omeprazole 20 mg capsule,delayed release(DR/EC) 20 mg PO DAILY calcitriol 0.25 mcg capsule 0.25 mcg PO DAILY ondansetron 4 mg tablet,disintegrating 4 mg PO DAILY PRN polyethylene glycol 3350 [Miralax] 17 gram/dose powder 17 g PO BID acetaminophen 500 mg capsule 1,000 mg PO BID calcitonin (salmon) 200 unit/actuation spray,non-aerosol 1 spray intranasal .QOD Rx Instructions: Administer in right nostril every other day and 1 spray in left nostril opposite days docusate sodium 100 mg capsule 100 mg PO DAILY furosemide [Lasix] 20 mg tablet 20 mg PO BID metoprolol tartrate 25 mg tablet 12.5 mg PO BID Patient Comments: Per pt. always takes this around [id number] 03/15/24-JW Xarelto 10 mg tablet 10 mg PO QPM diclofenac sodium 1 % gel 4 g topical DAILY Rx Instructions: 4grams to each knee Discharge Instructions Instructions: Aspiration pneumonia Activity:: Activity as Tolerated Equipment/Supplies:: No Equipment Needed Diet:: As Tolerated DS: Summary Time Spent with Patient providing and/or coordinating discharge services: Less than 30 minutes Status at Discharge Functional status at discharge: uses cane/walker Overall status at discharge: patient is progressing back to baseline Mental Status: mental status grossly normal Speech and Movement: speech and movement normal Mood: congruent mood Affect: normal affect Quality:SDOH Health Related Social Needs: Health related social needs daily activities Exam Narrative Exam Narrative: General: This is a pleasant man in no distress HEENT: Normocephalic, atraumatic CV: RRR with distal nonpitting edema Resp: CTAB Abd: soft, NTND Back: left nephrostomy tube in place MSK: voluntary motion x4 Neuro: awake, alert, no focal deficits Psych Mental Status: mental status grossly normal Speech and Movement: speech and movement normal Mood: congruent mood Affect: normal affect DS: Data Vitals/I&O Vitals and I&O: Vital Signs Temperature 36.2 C L 01/26/25 11:39 Temperature Source Temporal Artery Scan 01/26/25 11:39 Pulse 66 01/26/25 11:39 Pulse 81 01/24/25 10:09 Respiratory Rate 19 01/26/25 11:39 Respiratory Effort Normal 01/24/25 00:10 Respiratory Depth Shallow 01/24/25 00:10 Respiratory Pattern Tachypnea 01/24/25 00:10 Blood Pressure 172/86 H 01/26/25 11:39 Blood Pressure Mean 114 01/26/25 11:39 Blood Pressure Position Supine 01/23/25 19:14 Pulse Oximetry 94 01/26/25 11:39 Oxygen Delivery Method Room Air 01/26/25 11:39 Oxygen Flow Rate 0 01/26/25 11:39 Pain Level 0 01/25/25 14:42 Comment Notifying RN 01/25/25 14:42 Intake & Output 01/25/25 01/26/25 01/26/25 23:59 11:59 23:59 Intake Total 1030 / 1920 220 / 220 Output Total 2900 / 4190 560 / 560 Balance -1870 / -2270 -340 / -340 Weight 110 kg Intake: IV 570 / 1220 100 / 100 Oral 460 / 700 120 / 120 Output: Drainage 300 / 300 Left Posterior Back 300 / 300 Urine 2600 / 3890 560 / 560 Other: Urine Color Pale Dark Nyasia Urine Appearance Clear Cloudy Comment nephrostomy dark nyasia in bag, scant blood in tubing. md aware Data Completed and Pending Pending Labs at Discharge: 01/23/25 01/23/25 01/23/25 18:48 19:45 21:42 WBC 8.72 RBC 5.07 Hgb 13.7 Hct 43.5 MCV 86 MCH 27.0 MCHC 31.5 L RDW 16.4 H Plt Count 150 MPV 9.3 Immature Gran % 1.1 Neutrophils % 83.4 Lymphocytes % 8.0 Monocytes % 6.5 Eosinophils % 0.5 Basophils % 0.5 Nucleated RBC % 0.0 Absolute Neutrophils 7.27 H Absolute Lymphocytes 0.70 L Absolute Monocytes 0.57 Absolute Eosinophils 0.04 Absolute Basophils 0.04 PT 10.0 INR 1.0 APTT 25.2 VBG pH 7.37 VBG pCO2 53 H VBG pO2 47 VBG HCO3 31 H VBG Total CO2 28 VBG O2 Saturation 81 VBG Base Excess 6 H VBG Lactate 2.2 H* Sodium 141 Potassium 4.6 Chloride 103 Carbon Dioxide 29.7 Anion Gap 8.3 BUN 30 H Creatinine 1.04 Est GFR (CKD-EPI 2020) 67.83 Glucose 127 H Calcium 8.4 Total Bilirubin 1.3 H AST 15 ALT 9 L Alkaline Phosphatase 59 Ammonia 15 Troponin I 6 7 NT-Pro-B Natriuret Pep 2847 H Total Protein 7.1 Albumin 4.1 Procalcitonin < 0.10 TSH 0.90 Urine Color Yellow Urine Clarity Sl Cloudy Urine pH 6.0 Ur Specific Bradford 1.020 Urine Protein 100 H Urine Ketones Negative Urine Blood Large H Urine Nitrite Negative Urine Bilirubin Negative Urine Urobilinogen 0.2 Ur Leukocyte Esterase Small H Urine RBC >50 H Urine WBC 10-20 H Ur Epithelial Cells Rare Urine Crystals Negative Urine Bacteria Rare Urine Mucus Moderate Urine Other Few Yeast Ur Culture Indicated? Yes Urine Glucose Negative Vancomycin Trough Random Vancomycin COVID-19 Source Nasopharynx SARS-CoV-2 (PCR) Negative Influenza Type A (PCR) Negative Influenza Type B (PCR) Negative RSV (PCR) Negative 01/23/25 01/24/25 01/24/25 22:00 05:40 16:35 WBC 9.20 RBC 4.61 Hgb 12.3 L Hct 40.0 MCV 87 MCH 26.7 L MCHC 30.8 L RDW 16.8 H Plt Count 114 L MPV 9.2 Immature Gran % Neutrophils % Lymphocytes % Monocytes % Eosinophils % Basophils % Nucleated RBC % Absolute Neutrophils Absolute Lymphocytes Absolute Monocytes Absolute Eosinophils Absolute Basophils PT INR APTT VBG pH 7.33 VBG pCO2 57 H VBG pO2 47 VBG HCO3 30 H VBG Total CO2 27 VBG O2 Saturation 80 VBG Base Excess 4 H VBG Lactate 1.6 Sodium 144 Potassium 4.4 Chloride 106 Carbon Dioxide 29.5 Anion Gap 8.5 BUN 29 H Creatinine 1.11 Est GFR (CKD-EPI 2020) 62.92 Glucose 104 Calcium 7.6 L Total Bilirubin 1.4 H AST 14 ALT 8 L Alkaline Phosphatase 49 Ammonia Troponin I 10 NT-Pro-B Natriuret Pep Total Protein 6.2 Albumin 3.5 Procalcitonin TSH Urine Color Urine Clarity Urine pH Ur Specific Bradford Urine Protein Urine Ketones Urine Blood Urine Nitrite Urine Bilirubin Urine Urobilinogen Ur Leukocyte Esterase Urine RBC Urine WBC Ur Epithelial Cells Urine Crystals Urine Bacteria Urine Mucus Urine Other Ur Culture Indicated? Urine Glucose Vancomycin Trough Random Vancomycin 11.5 COVID-19 Source SARS-CoV-2 (PCR) Influenza Type A (PCR) Influenza Type B (PCR) RSV (PCR) 01/25/25 01/26/25 01/26/25 06:18 06:55 18:30 WBC 7.62 7.01 RBC 4.51 4.34 L Hgb 12.2 L 12.1 L Hct 38.8 L 36.7 L MCV 86 85 MCH 27.1 27.9 MCHC 31.4 L 33.0 RDW 16.5 H 15.9 H Plt Count 124 L 119 L MPV 9.8 9.8 Immature Gran % Neutrophils % Lymphocytes % Monocytes % Eosinophils % Basophils % Nucleated RBC % Absolute Neutrophils Absolute Lymphocytes Absolute Monocytes Absolute Eosinophils Absolute Basophils PT INR APTT VBG pH VBG pCO2 VBG pO2 VBG HCO3 VBG Total CO2 VBG O2 Saturation VBG Base Excess VBG Lactate Sodium 140 138 Potassium 3.9 3.6 Chloride 102 100 Carbon Dioxide 28.1 28.5 Anion Gap 9.9 9.5 BUN 25 H 23 Creatinine 1.02 1.04 Est GFR (CKD-EPI 2020) 69.37 67.83 Glucose 81 91 Calcium 8.1 L 8.4 Total Bilirubin 1.5 H 1.5 H AST 13 11 ALT 9 L 8 L Alkaline Phosphatase 48 48 Ammonia Troponin I NT-Pro-B Natriuret Pep Total Protein 6.6 6.5 Albumin 3.7 3.6 Procalcitonin TSH Urine Color Urine Clarity Urine pH Ur Specific Bradford Urine Protein Urine Ketones Urine Blood Urine Nitrite Urine Bilirubin Urine Urobilinogen Ur Leukocyte Esterase Urine RBC Urine WBC Ur Epithelial Cells Urine Crystals Urine Bacteria Urine Mucus Urine Other Ur Culture Indicated? Urine Glucose Vancomycin Trough Cancelled Random Vancomycin COVID-19 Source SARS-CoV-2 (PCR) Influenza Type A (PCR) Influenza Type B (PCR) RSV (PCR) Preliminary micro results at discharge 01/23/25 18:40 Blood Blood Culture - Preliminary NO GROWTH 48 HOURS 01/23/25 18:48 Blood Blood Culture - Preliminary NO GROWTH 48 HOURS PFSH All Active Problems (Updated 01/26/25 @ 13:08 by Taj Starr MD) History of pulmonary embolism (Acute) Severe sepsis (Acute) Aspiration pneumonia (Acute) Acute hypoxemic respiratory failure (Acute) Left ureteral injury (Acute) 09/08/24 [facility] [place] [facility] [place] Discharge planning issues (Acute) Hyperparathyroidism (Chronic) Stenosis of right vertebral artery (Chronic) Acute alteration in mental status (Acute) Urinary tract infection associated with nephrostomy catheter (Acute) Complicated UTI (urinary tract infection) (Acute) Renal calculus, left (Chronic) Hydronephrosis of left kidney (Chronic) Nail dystrophy (Acute) Yeast UTI (Acute) Confusion associated with infection (Acute) Confusion (Acute) Abnormal urinalysis (Acute) Pulmonary emboli (Chronic) Hematuria (Acute) Acute hypoxic respiratory failure (Acute) Edema of both lower extremities (Acute) Well-managed, with exercise/activity; b/l general .. trial compression and lasix Elevated parathyroid hormone (Acute) Osteoarthritis of right knee (Acute) Steroid injection: 01/14/2025; 03/04/24; 05/19/2023 Hypercalcemia (Acute) CKD (chronic kidney disease) stage 3, GFR 30-59 ml/min (Acute) Stage 3, 2022, with LALA (GFR <30!) 2' over-diures.. Hx stage 2-3 (2021) Edema of foot (Acute) Knee pain, bilateral (Acute) ? goop injection Onychomycosis (Acute) Lumbar spondylosis (Acute) Lumbar back pain (Acute) Lumbar adjacent segment disease with spondylolisthesis (Acute) long-term (current) use of anticoagulants (Acute) Osteoarthritis of left knee (Acute) Steroid injection: 01/14/2025; 03/04/24; 05/19/2023; 12/07/2020 HTN (hypertension) (Chronic) Hyperlipidemia (Chronic 10/24/04) RISK 12% 11/2005; LDL goal 100 Need labs, [ ] Fall 201807/01/18 Medical History Pneumonia Leg edema Resolves with activity, qAM, 04/2022.. (Worsening, re-start furosemide, 10/2020) Renal calculus Hematuria: CT (01/09/23) vs. CT (04/27/2022):.. largest calculus in the left kidney has now migrated to the upper left ureter/UPJ level (prob responsible for hematuria)..no obvious dilatation of the left collecting system above this level..another calculus again noted in the left left kidney lower pole calyx (no changed position)..previously present 3 mm calculus in the bladder no longer seen and has most probably passed. 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 07/2021 Left knee pain Acute on chronic. Not a surgical candidate. Cane helping - may need training.. BPH w/o urinary obs/LUTS (02/15/11) nocturiaX1-2; INCR 3X 09/2012 Acute on chronic renal failure Acute exacerbation of congestive heart failure Hosp; resolved .. but with too much fluid restriction post hosp! Bakers cyst Rt, 4cm.. incidental finding on US DVT (deep venous thrombosis) New DVT, 02/2021. Xarelto started. Resolved, Cinda D/C'd 07/2020 by Surg. C. 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 denies this stated that this was due to an interaction a year ago where having the masks on and he his hard of hearing they stated he had dementia which his and current PCP stated he does not. 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 Taylor started him on HCTZ 2005. High BP readings @ ophtho, urol . turns out to be 2' finesteride, Dr. Smallwood d/c'd .. will follow up in July 2018. 125/85 today, 06/2018, ik. Surgical History Hx of cataract removal with insertion of prosthetic lens 12/11/20 [place], [facility] Posterior subcapsular age-related cataract, right eye Nuclear sclerotic cataract of right eye S/P cholecystectomy (01/24/20) S/P ERCP Arthroscopy (02/10/84) in CT, Left knee Family History Son Age: 62 No problems noted. 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 [employer] Current gender identity: male What type of physical activity do you participate in: none Working smoke detector in home: Yes Fire extinguisher in home: Yes Carbon monox detector in home: Yes Additional Social history: unable to assess privately Time Spent with Patient Time Spent with Patient: <45 minutes Time was spent: preparing to see the patient(eg.review tests), obtaining and/or reviewing separately otained hiistory, ordering medications,tests, procedures, referring, communicating with other health healthcare network consultant, indepentently interpreting results, counseling the patient and care coordination
--- NOTE | 2025-01-26 14:19 | PDOC.CMDIS ---
Date of service: 01/26/25 Time of Service: 14:19 LACE Index Scoring Tool Questions: Length of Stay (in days): 3 Was the patient admitted via the E.D.?: Yes Comorbidities: Chronic Pulmonary Disease and Liver or Renal Disease E.D. Visits: 5 Answers: Total Score: 15 Risk of Readmission: High Risk Care Management Discharge Plan Reason for Hospitalization: aspiration pneumonia Discharge Plan: Raffy will be discharged back to [facility]. He will follow up with the facility providers and plan of care and transport with [facility]. Patient/Family Education Needs: Expectations and limitations Services Needed at Discharge: Half-Way Facility and Transportation SDOH Health Related Social Needs: Health related social needs daily activities
== END 2025-01-26 14:29 | disposition skilled nursing facility (03) | DRG 871 ==
LOC: ER 21:42 → ICU 23:21 → MS 01-24 14:50
PROVIDERS: Admitting Provider Family Medicine; Emergency Provider Student in an Organized Health Care Education/Training Program; PCP Legal Medicine; Responsible Provider Family Medicine; Visit Provider Family Medicine
DX: A41.9 Sepsis, unspecified organism (principal); N13.30 Unspecified hydronephrosis; I27.82 Chronic pulmonary embolism; J69.0 Pneumonitis due to inhalation of food and vomit; J96.01 Acute respiratory failure with hypoxia; I13.0 Hypertensive heart and chronic kidney disease with heart failure and stage 1 through stage 4 chronic kidney disease, or unspecified chronic kidney disease; G93.40 Encephalopathy, unspecified; Z68.36 Body mass index [BMI] 36.0-36.9, adult; E66.812 Obesity, class 2; I71.40 Abdominal aortic aneurysm, without rupture, unspecified; I50.9 Heart failure, unspecified; I65.01 Occlusion and stenosis of right vertebral artery; N18.30 Chronic kidney disease, stage 3 unspecified; M47.816 Spondylosis without myelopathy or radiculopathy, lumbar region; E78.5 Hyperlipidemia, unspecified; M10.371 Gout due to renal impairment, right ankle and foot; E89.2 Postprocedural hypoparathyroidism; Z79.01 Long term (current) use of anticoagulants; Z93.6 Other artificial openings of urinary tract status; Z79.899 Other long term (current) drug therapy
CPT/HCPCS: 00123; 36415; 80053; 82805; 84145; 85027; 87040; 87077; 87637; 93005; 93308; 96361; 96365; 96366; 96367; 96368; 99291; 71045; 80202; 81003; 81015; 82140; 83605; 83880; 84443; 84484; 85025; 85610; 85730; 87086; 87186; 93010; 99223; 99231; 99238; J0131; J0456; J0692; J1938; J2543; J3373; J3490

== ENCOUNTER 2025-01-29 18:48 | Observation (INO) | payer MEDICARE, MEDICAID, SELFPAY ==
[2025-01-29] VITALS (46 sets, daily range): BP systolic 164–226; BP diastolic 85–114; PULSE 71–90; RESP 17–28; TEMP 37.2; O2SAT 85–95
--- NOTE | 2025-01-29 18:15 | RT.EKG_ITS ---
APPROVED REPORT Exam: Resting ECG Reason for Exam: AMS Patient Location: E HR:75 bpm ECG Measurements Heart Rate 75 AXIS OH 217 P 17 QRSd 93 QRS -19 QT 404 T 16 QTc 451 Conclusion Sinus rhythm...normal P axis, V-rate 60- 99 Ventricular trigeminy...trigeminy string>6 w/ V complexes Borderline prolonged OH interval...OH >212, V-rate 50- 90 Probable left atrial enlargement...P >50mS, <-0.10mV V1 Inferior infarct, old...Q >35mS, II III aVF No STEMI
--- NOTE | 2025-01-29 18:30 | DI.CT_ITS ---
Exam(s) CT BRAIN NECK CTA EXAM: CT BRAIN NECK CTA CLINICAL HISTORY: AMS. TECHNIQUE: Imaging Protocol: Axial CT angiography was performed with multi- slice acquisition and multi-planar and/or 3D reconstructions. CONTRAST MATERIAL: Intravenous: Omnipaque 350 contrast volume:70 mL COMPARISON: CT CT HEAD WO from 04/27/[address] BRAIN NECK CTA from 09/18/[address] NECK W from 12/02/[address] HEAD WO from 12/02/2024 FINDINGS: CT Head W/O and W: Ventricles and Extra axial spaces: Normal in size and morphology for the patient's age. Hemorrhage: None. Cerebral parenchyma: There are areas of decreased attenuation in the white matter consistent with chronic microvascular ischemic disease. There is no evidence of an acute territorial infarct or acute mass effect. Midline shift: None. Brainstem/Cerebellum: Normal. Calvarium: Normal. Visualized Paranasal sinuses/Mastoids: Clear. Soft Tissues: Unremarkable. Enhancement: Unremarkable. CTA Neck W: Common Carotid: Right: No dissection, occlusion or significant stenosis. Left: No dissection, occlusion or significant stenosis. External Carotid: Right: No occlusion or significant stenosis. Left: No occlusion or significant stenosis. Internal Carotid: Right: No dissection, occlusion or significant stenosis. There is mild atherosclerotic calcification at the origin of the right internal carotid artery. Left: No dissection, occlusion or significant stenosis. There is atherosclerotic calcification seen in the proximal internal carotid artery without significant stenosis. Vertebral Artery: Right: There is again seen marked stenosis at the origin of the right vertebral artery. There is immediate reconstitution distal to the stenosis. Left: No dissection, occlusion or significant stenosis. Atherosclerotic calcification is seen in the left vertebral artery. Lung Apices: No acute abnormality seen in the lung apices. Bones: Within normal limits for the patient's age. There is unchanged mild anterolisthesis of C4 on C5 and C5 on C6. Soft Tissues: Normal. Thyroid gland: Unremarkable. CTA Brain W: Internal Carotid Arteries: There is atherosclerotic calcification at the cavernous portions of the internal carotid arteries bilaterally without significant stenosis. There is no occlusion or aneurysm identified. Anterior Cerebral Arteries: Right: No aneurysm, occlusion or significant stenosis. Left: No aneurysm, occlusion or significant stenosis. Middle Cerebral Arteries: Right: No aneurysm, occlusion or significant stenosis. Left: No aneurysm, occlusion or significant stenosis. Posterior Cerebral Arteries: Right: No aneurysm, occlusion or significant stenosis. Left: No aneurysm, occlusion or significant stenosis. Vertebral Arteries: Right: No aneurysm, occlusion or significant stenosis. Left: No aneurysm, occlusion or significant stenosis. Basilar Artery: No aneurysm, occlusion or significant stenosis. IMPRESSION: 1. No large vessel occlusion or significant stenosis on the CT angiography of the head. 2. No acute intracranial process. 3. There is again seen high-grade stenosis at the origin of the right vertebral artery. Distal to the stenosis the vertebral artery shows normal size. 4. The preliminary [facility] report was reviewed. RADIATION DOSE DELIVERED: 2,201.89mGy.cm Total DLP DATA REPOSITORY: All CT scans at this facility are submitted to the National Radiology Data Registry (NRDR) Dose Index Registry (DIR) with the [employer] (ACR). RADIATION OPTIMIZATION: All CT scans at this facility use at least one of these dose optimization techniques: automated exposure control; mA and/or kV adjustment per patient size (includes targeted exams where dose is matched to clinical indication); or iterative reconstruction.
--- NOTE | 2025-01-29 18:44 | DI.RAD_ITS ---
Exam(s) XR PORTABLE CHEST AP EXAM: XR PORTABLE CHEST AP CLINICAL HISTORY: AMS TECHNIQUE: 2D digital imaging was performed of the chest. One image was obtained. An AP view was obtained. COMPARISON: CR,XR XR PORTABLE CHEST AP from 01/23/2025 FINDINGS: There are low lung volumes. MEDIASTINUM: Normal. HEART: Normal. PULMONARY VASCULATURE: There is atherosclerosis and tortuosity of the thoracic aorta. LUNGS: There are increased perihilar interstitial markings. There are no focal consolidating infiltrates present. PLEURAL SPACE: No pleural effusion or pneumothorax. BONE:Within normal limits for the patient's age. OTHER FINDINGS:Normal. IMPRESSION: 1. Low lung volumes. 2. Increased perihilar interstitial markings. This can be seen with interstitial edema or pneumonia. Please correlate clinically. 3. No focal consolidating infiltrates are present. 4. The preliminary [facility] report was reviewed. DATA REPOSITORY: RADIATION DOSE DELIVERED:
[2025-01-29 20:52] LABS: Abs Immature Grans 0.14 10^3/uL (0.0-0.06); HCT 40.5 % (40.0-50.0); HGB 12.9 g/dL (13.5-17.5); Immature Grans % 1.4 %; MCH 26.9 pg (27.0-33.0); MCHC 31.9 % (32.0-36.0); MCV 85 fL (80-95); MPV 9.2 fL (8.0-11.0); Platelet Count 149 10^3/uL (130-400); RBC 4.79 10^6/uL (4.36-5.78); RDW 15.9 % (11.8-14.1); RDW-SD 49.3 fL; WBC 9.85 10^3/uL (4.4-10.8)
--- NOTE | 2025-01-29 21:00 | DI.[facility]_ITS ---
PROCEDURE INFORMATION: Exam: XR Chest Exam date and time: 01/29/2025 8:18 PM Age: 84 years old Clinical indication: Other: AMS TECHNIQUE: Imaging protocol: Radiologic exam of the chest. Views: 1 view. COMPARISON: CR XR PORTABLE CHEST AP 01/23/2025 7:03 PM FINDINGS: Lungs: Lung volumes are low. There is diffuse interstitial prominence. Pleural spaces: No pleural effusion. No pneumothorax. Heart/Mediastinum: The heart is normal size. Bones/joints: Unremarkable. IMPRESSION: Low lung volumes and interstitial prominence suggesting vascular crowding although pulmonary edema could also be considered in the differential. Dictated and Authenticated by: Lizabeth Cochran MD. Orderin Jarad Almaguer MD
[2025-01-29 21:08] LABS: INR 1.1 (0.9-1.1); PTT Activated 25.4 sec (20.6-30.2); Prothrombin Time 10.5 sec (9.1-11.1)
[2025-01-29 21:11] LABS: Troponin I 13 ng/L (<54)
[2025-01-29 21:13] LABS: Lipase 43 U/L (<53)
[2025-01-29 21:14] LABS: Magnesium 2.0 mg/dL (1.6-2.6)
[2025-01-29 21:15] LABS: ALT 10 U/L (10-49); AST 12 U/L (<34); Albumin 4.3 g/dL (3.2-5.0); Alkaline Phosphatase 59 U/L (46-116); Anion Gap 9.1 mmol/L (3-11); BUN 23 mg/dL (9-23); Bilirubin, Total 1.1 mg/dL (0.2-1.2); CO2 31.7 mmol/L (20.0-31.0); Calcium 9.2 mg/dL (8.3-10.6); Chloride 96 mmol/L (98-107); Glucose 91 mg/dL (74-106); Potassium 3.7 mmol/L (3.5-5.1); Sodium 137 mmol/L (136-145); Total Protein 7.5 g/dL (5.7-8.2)
[2025-01-29 21:24] LABS: Glucose Negative (Negative)
[2025-01-29 21:29] LABS: C & S Indicated? Yes; RBC 20-50 HPF (0-2)
[2025-01-29] MEDS: Omnipaque 350 MG/ML 100 ML BTL IJ (21:43)
[2025-01-29] MEDS: Normal Saline - Diluent 50 ML VIAL IJ (21:43)
[2025-01-29] MEDS: Normal Saline Flush 10 ML SYR IVP (21:43)
--- NOTE | 2025-01-29 22:18 | DI.VRAD_ITS ---
PROCEDURE INFORMATION: Exam: CTA Head Without And With Contrast, Arteriography Exam date and time: 01/29/2025 9:39 PM Age: 84 years old Clinical indication: Other: AMS TECHNIQUE: Imaging protocol: Computed tomographic angiography of the head without and with contrast. Exam focused on the arteries. 3D rendering (Not supervised by radiologist): MIP and/or 3D reconstructed images were created by the technologist. Contrast material: OMNIPAQUE 350; Contrast volume: 70 ml; Contrast route: IV; COMPARISON: CT BRAIN NECK CTA 09/18/2024 4:47 PM FINDINGS: ANTERIOR CIRCULATION: Right internal carotid artery: Trace atheromatous calcification is present within the cavernous portions of the right internal carotid arteries. Less than 50% luminal stenosis. Right middle cerebral artery: No occlusion or significant stenosis. No aneurysm. Right anterior cerebral artery: No occlusion or significant stenosis. No aneurysm. Left internal carotid artery: Moderate atheromatous calcification is present within the cavernous portions of the left internal carotid arteries. Less than 50% luminal stenosis. Moderate atheromatous calcifications are present at the left carotid bulb. Left middle cerebral artery: No occlusion or significant stenosis. No aneurysm. Left anterior cerebral artery: No occlusion or significant stenosis. No aneurysm. POSTERIOR CIRCULATION: Right vertebral artery: No occlusion or significant stenosis. No aneurysm. Left vertebral artery: No occlusion or significant stenosis. No aneurysm. Basilar artery: No occlusion or significant stenosis. No aneurysm. Right posterior cerebral artery: No occlusion or significant stenosis. No aneurysm. Left posterior cerebral artery: No occlusion or significant stenosis. No aneurysm. HEAD: Brain: No acute intracranial hemorrhage or mass lesions. No midline shift. Normal landrum-white differentiation. Cerebral ventricles: Normal. No ventriculomegaly. Bones: Moderate degenerative changes are present throughout the cervical spine including intervertebral disc space narrowing, endplate sclerosis and osteophytosis. Paranasal sinuses: Visualized sinuses are normal. No fluid levels. Mastoid air cells: Visualized mastoids are normal. No mastoid effusion. Soft tissues: Unremarkable. IMPRESSION: 1. No stenosis, occlusion, or aneurysm. 2. No acute intracranial findings. PROCEDURE INFORMATION: Exam: CTA Neck Without And With Contrast Exam date and time: 01/29/2025 9:39 PM Age: 84 years old Clinical indication: Other: AMS TECHNIQUE: Imaging protocol: Computed tomographic angiography of the neck without and with contrast. Exam focused on the cervical segments of the vasculature. 3D rendering (Not supervised by radiologist): MIP and/or 3D reconstructed images were created by the technologist. Contrast material: OMNIPAQUE 350; Contrast volume: 70 ml; Contrast route: IV; COMPARISON: CT BRAIN NECK CTA 09/18/2024 4:47 PM FINDINGS: Right common carotid artery: No stenosis. No dissection or occlusion. Right internal carotid artery: Moderate atheromatous calcifications are present at the right carotid bulb. Right external carotid artery: No occlusion or stenosis of the origin. Left common carotid artery: No stenosis. No dissection or occlusion. Left internal carotid artery: No stenosis of the extracranial segment. No dissection or occlusion. Left external carotid artery: No occlusion or stenosis of the origin. Right vertebral artery: There is a high-grade stenosis at the origin of the right vertebral artery. The more superior right vertebral artery demonstrates normal caliber and course. Left vertebral artery: No stenosis. No dissection or occlusion. Aorta: Atheromatous calcifications are present within the visualized thoracic aorta. Soft tissues: Normal. No significant soft tissue swelling. Bones/joints: No acute fracture. IMPRESSION: 1. High-grade stenosis at the origin of the right vertebral artery. 2. No other hemodynamically significant stenosis, occlusion, or aneurysm. REFERENCES: NASCET CRITERIA. The degree of stenosis in the cervical segment of the internal carotid artery is based on NASCET criteria. Normal is no stenosis. Mild is less than 50% stenosis. Moderate is 50-69% stenosis. Severe is 70% to 99% stenosis. Total occlusion is no detectable patent lumen. Dictated and Authenticated by: Lizabeth Cochran MD. Orderin Jarad Almaguer MD
[2025-01-29] MEDS: Metoprolol 12.5 MG TAB PO (22:27)
[2025-01-29 22:54] LABS: Troponin I 12 ng/L (<54)
[2025-01-29 23:03] LABS: COVID-19 PCR Negative (Negative); RSV PCR Negative (Negative)
--- NOTE | 2025-01-29 23:52 | W.PM.HP.N ---
Date of service: 01/29/25 Time of Service: 23:52 Assessment and Plan Assessment and plan (1) AMS (altered mental status): Status: Acute Assessment and plan: Exact etiology is unknown although could certainly be due to some dehydration as well as a possible urinary tract infection. Patient has had multiple exposure to antibiotics lately and I do not know if necessarily treating him empirically is the best idea. Urine cultures have been done and unless he changes significantly in terms of his mental status would hold off on antibiotics until results are available. I am giving some IV fluids and will monitor for improving mental status. Per my discussion with the patient and his he is essentially mentating at his baseline (2) CHF (congestive heart failure): Status: Chronic Assessment and plan: Does not necessarily formal diagnosis but does appear to be having increasing elevations in his BNP. Would certainly consider formal echocardiogram at the discretion of his PCP. I have reviewed the chart and I do not see a formal reading. I am going to be somewhat judicious with his fluid resuscitation though considering the possibility of congestive heart failure. (3) HTN (hypertension): Status: Chronic Assessment and plan: Continue with his Lasix and metoprolol (4) History of pulmonary embolism: Status: Acute Assessment and plan: Continue with his Xarelto (5) Hyperparathyroidism: Status: Chronic Assessment and plan: Patient is status post hyperparathyroid ectomy. (6) CKD (chronic kidney disease) stage 3, GFR 30-59 ml/min: Status: Acute Assessment and plan: Noted, patient does have significant urologic history. In reviewing his chart, his GFR is at 61 and on discharge it was 67. Patient remains in the same chronic kidney disease class. (7) Left ureteral injury: Status: Acute Assessment and plan: Noted (8) Abnormal urinalysis: Status: Acute Assessment and plan: Patient does have mild leukocyte esterase in his urine as well as hematuria. Please see #1 for plan. (9) Benign hypertension: Assessment and plan: Noted History of Present Illness History of Present Illness Chief Complaint: ams Narrative: Mr Mobley is an 84-year-old gentleman with multiple contact healthcare system recently including an admission here between 01/23/25-01/26/25 for what appeared to be sepsis and pneumonia. Patient also had event at [facility] approximately a month ago for his nephrostomy tube having a malfunction. His history is augmented through chart review, discussion with the patient and who is at bedside, and ED staff. Mr. Moblye is alert but he does not his to advocate for him. Mrs. Mobley states that the patient was in his usual state of health until approximately 4 this afternoon at which time he became more confused and somnolent. She states in the past this has been associated with dehydration as well as urinary tract infections. In reviewing his chart the patient was supposed to be on Augmentin but I am not sure if he has been taking this at the long-term facility. At any rate he also carries a medical diagnosis of congestive heart failure, hyperparathyroidism status post parathyroidectomy, DVT for which he takes Xarelto, chronic renal failure with left hydronephrosis for which he has a nephrostomy tube, a AAA as well as hypertension. Patient's most recent urine cultures have been reviewed and will be attached for completeness. Urology was in the ED did not get any workup including lab work, diagnostic imaging, as well as an EKG. Is CMP does show an elevated BUN/creatinine ratio which could be associated with dehydration. His white count is within normal limits. BNP is elevated at 2541 and was 2847 on the . Per my discussion with the he did get a bedside echocardiogram which was reported as within normal limits. Do not see a formal echocardiogram. Of note his BNP in April of this year was 423 and now is mention is 25.41 chest x-ray did not show any acute illnesses CT of the brain was negative. EKG on my reading did show right bundle branch block. No ST elevation or depression. Patient is a full code. Procedure Result Verified Urine Culture Final 01/26/25-848 Day 1 Result ISOLATES BELOW ISOLATE 1 COLONY COUNT >100,000 COLONIES/ML ISOLATE 1 APPEARANCE Gram Negative Aleksey ISOLATE 1 ACTION ID AND SUSCEPTIBILITY TO FOLLOW Day 2 Result ISOLATES BELOW ISOLATE 1 COLONY COUNT >100,000 COLONIES/ML ISOLATE 1 APPEARANCE Gram Negative Aleksey ISOLATE 1 ACTION ID AND SUSCEPTIBILITY TO FOLLOW ISOLATE 2 COLONY COUNT <10,000 COLONIES/ML ISOLATE 2 APPEARANCE Mixed Gram Positive Rama Day 3 Result ISOLATES BELOW ISOLATE 1 COLONY COUNT >100,000 COLONIES/ML ISOLATE 1 APPEARANCE Gram Negative Aleksey ISOLATE 2 COLONY COUNT <10,000 COLONIES/ML ISOLATE 2 APPEARANCE Mixed Gram Positive Rama Organism 1 Acinetobacter baumanii Complex COLONY COUNT >100,000 COLONIES/ML Organism 2 Gram positive rama, mixed COLONY COUNT <10,000 COLONIES/ML Acin stone Result Ampicillin/Sulbactam S Ceftazidime S Ciprofloxacin S Gentamicin S Trimethoprim/Sulfamethoxazole S Piperacillin/Tazobactam R Meropenem S Review of Systems All systems reviewed & are unremarkable except as noted in HPI and below PFSH All Active Problems (Updated 01/30/25 @ 00:03 by Ze Mao MD) CHF (congestive heart failure) (Chronic) AMS (altered mental status) (Acute) History of pulmonary embolism (Acute) Left ureteral injury (Acute) 09/08/24 [facility] Urology note Discharge planning issues (Acute) Hyperparathyroidism (Chronic) Stenosis of right vertebral artery (Chronic) Acute alteration in mental status (Acute) Urinary tract infection associated with nephrostomy catheter (Acute) Complicated UTI (urinary tract infection) (Acute) Renal calculus, left (Chronic) Nail dystrophy (Acute) Yeast UTI (Acute) Confusion associated with infection (Acute) Confusion (Acute) Abnormal urinalysis (Acute) Hematuria (Acute) Acute hypoxic respiratory failure (Acute) Edema of both lower extremities (Acute) Well-managed, with exercise/activity; b/l general .. trial compression and lasix Elevated parathyroid hormone (Acute) Osteoarthritis of right knee (Acute) Steroid injection: 01/14/2025; 03/04/24; 05/19/2023 Hypercalcemia (Acute) CKD (chronic kidney disease) stage 3, GFR 30-59 ml/min (Acute) Stage 3, 2022, with LALA (GFR <30!) 2' over-diures.. Hx stage 2-3 (2021) Edema of foot (Acute) Knee pain, bilateral (Acute) ? goop injection Onychomycosis (Acute) Lumbar spondylosis (Acute) Lumbar back pain (Acute) Lumbar adjacent segment disease with spondylolisthesis (Acute) senior care (current) use of anticoagulants (Acute) Osteoarthritis of left knee (Acute) Steroid injection: 01/14/2025; 03/04/24; 05/19/2023; 12/07/2020 HTN (hypertension) (Chronic) Hyperlipidemia (Chronic 10/24/04) RISK 12% 11/2005; LDL goal 100 Need labs, [ ] Fall 201807/01/18 Medical History Pneumonia Leg edema Resolves with activity, qAM, 04/2022.. (Worsening, re-start furosemide, 10/2020) Renal calculus Hematuria: CT (01/09/23) vs. CT (04/27/2022):.. largest calculus in the left kidney has now migrated to the upper left ureter/UPJ level (prob responsible for hematuria)..no obvious dilatation of the left collecting system above this level..another calculus again noted in the left left kidney lower pole calyx (no changed position)..previously present 3 mm calculus in the bladder no longer seen and has most probably passed. 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 07/2021 Left knee pain Acute on chronic. Not a surgical candidate. Cane helping - may need training.. BPH w/o urinary obs/LUTS (02/15/11) nocturiaX1-2; INCR 3X 09/2012 Acute on chronic renal failure Acute exacerbation of congestive heart failure Hosp; resolved .. but with too much fluid restriction post hosp! Bakers cyst Rt, 4cm.. incidental finding on US DVT (deep venous thrombosis) New DVT, 02/2021. Xarelto started. Resolved, Eliquis D/C'd 07/2020 by Surg. C. 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 denies this stated that this was due to an interaction a year ago where having the masks on and he his hard of hearing they stated he had dementia which his and current PCP stated he does not. 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 Taylor started him on HCTZ 2005. High BP readings @ ophtho, urol . turns out to be 2' finesteride, Dr. Smallwood d/c'd .. will follow up in July 2018. 125/85 today, 06/2018, ik. Surgical History Hx of cataract removal with insertion of prosthetic lens 12/11/20 [place], [facility] Posterior subcapsular age-related cataract, right eye Nuclear sclerotic cataract of right eye S/P cholecystectomy (01/24/20) S/P ERCP Arthroscopy (02/10/84) in [place], Left knee Family History Son Age: 62 No problems noted. 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Medication ?Instructions ?Recorded ?Confirmed ?Type cholecalciferol (vitamin D3) 1,250 1,250 mcg PO QWEEK 06/15/24 01/29/25 History mcg (50,000 unit) capsule acetaminophen 500 mg capsule 1,000 mg PO BID 09/18/24 01/29/25 History calcitonin (salmon) 200 1 spray intranasal .QOD 09/18/24 01/29/25 History unit/actuation nasal spray Held on 01/29/25. Instructions: Pt Stopped/Never Started docusate sodium 100 mg capsule 100 mg PO DAILY 09/18/24 01/29/25 History furosemide 20 mg tablet (Lasix) 20 mg PO BID 09/18/24 01/29/25 History metoprolol tartrate 25 mg tablet 12.5 mg PO BID 09/18/24 01/29/25 History polyethylene glycol 3350 17 17 g PO BID 09/18/24 01/29/25 History gram/dose oral powder (Miralax) rivaroxaban 10 mg tablet (Xarelto) 10 mg PO QPM 09/18/24 01/29/25 History diclofenac sodium 1 % topical gel 4 g topical DAILY 11/29/24 01/29/25 History calcitriol 0.25 mcg capsule 0.25 mcg PO DAILY 01/23/25 01/29/25 History omeprazole 20 mg capsule,delayed 20 mg PO DAILY 01/23/25 01/29/25 History release Held on 01/29/25. Instructions: Pt Stopped/Never Started ondansetron 4 mg disintegrating 4 mg PO DAILY PRN 01/23/25 01/29/25 History tablet amoxicillin 875 mg-potassium 1 tab PO Q12H #6 tabs 01/26/25 01/29/25 Rx clavulanate 125 mg tablet Held on 01/29/25. Instructions: Pt Stopped/Never Started Exam Narrative Exam Narrative: HEENT normocephalic atraumatic mucous membranes moist oropharynx clear neck no lymphadenopathy no JVD no thyromegaly Cardiovascular regular rate and rhythm no murmurs gallops Lungs bilateral expiratory wheeze but no accessory muscle use Abdomen protuberant bowel sounds active x 4 Extremities no sinus clubbing or edema Back exam shows what appears to be a left nephrostomy tube in good order. Neurologic nonfocal Psych alert and oriented x 3 no apparent distress Results Labs 01/29/25 20:45 01/29/25 20:45 Labs: Laboratory Results - last 24 hr 01/29/25 01/29/25 01/29/25 20:45 21:13 22:05 WBC 9.85 RBC 4.79 Hgb 12.9 L Hct 40.5 MCV 85 MCH 26.9 L MCHC 31.9 L RDW 15.9 H Plt Count 149 MPV 9.2 Immature Gran % 1.4 Neutrophils % 66.7 Lymphocytes % 21.0 Monocytes % 8.6 Eosinophils % 1.7 Basophils % 0.6 Nucleated RBC % 0.0 Absolute Neutrophils 6.56 Absolute Lymphocytes 2.07 Absolute Monocytes 0.85 H Absolute Eosinophils 0.17 Absolute Basophils 0.06 PT 10.5 INR 1.1 APTT 25.4 Sodium 137 Potassium 3.7 Chloride 96 L Carbon Dioxide 31.7 H Anion Gap 9.1 BUN 23 Creatinine 1.14 Est GFR (CKD-EPI 2020) 61.01 Glucose 91 Calcium 9.2 Magnesium 2.0 Total Bilirubin 1.1 AST 12 ALT 10 Alkaline Phosphatase 59 Troponin I 13 NT-Pro-B Natriuret Pep 2541 H Total Protein 7.5 Albumin 4.3 Lipase 43 Urine Color Yellow Urine Clarity Clear Urine pH 5.5 Ur Specific [place] 1.025 Urine Protein 100 H Urine Ketones Negative Urine Blood Large H Urine Nitrite Negative Urine Bilirubin Negative Urine Urobilinogen 0.2 Ur Leukocyte Esterase Trace H Urine RBC 20-50 H Urine WBC 10-20 H Ur Epithelial Cells Rare Urine Crystals Negative Urine Bacteria Few Urine Casts Negative Urine Mucus Negative Urine Other Few Yeast Ur Culture Indicated? Yes Urine Glucose Negative COVID-19 Source Nasopharynx SARS-CoV-2 (PCR) Negative Influenza Type A (PCR) Negative Influenza Type B (PCR) Negative RSV (PCR) Negative 01/29/25 22:30 WBC RBC Hgb Hct MCV MCH MCHC RDW Plt Count MPV Immature Gran % Neutrophils % Lymphocytes % Monocytes % Eosinophils % Basophils % Nucleated RBC % Absolute Neutrophils Absolute Lymphocytes Absolute Monocytes Absolute Eosinophils Absolute Basophils PT INR APTT Sodium Potassium Chloride Carbon Dioxide Anion Gap BUN Creatinine Est GFR (CKD-EPI 2020) Glucose Calcium Magnesium Total Bilirubin AST ALT Alkaline Phosphatase Troponin I 12 NT-Pro-B Natriuret Pep Total Protein Albumin Lipase Urine Color Urine Clarity Urine pH Ur Specific [place] Urine Protein Urine Ketones Urine Blood Urine Nitrite Urine Bilirubin Urine Urobilinogen Ur Leukocyte Esterase Urine RBC Urine WBC Ur Epithelial Cells Urine Crystals Urine Bacteria Urine Casts Urine Mucus Urine Other Ur Culture Indicated? Urine Glucose COVID-19 Source SARS-CoV-2 (PCR) Influenza Type A (PCR) Influenza Type B (PCR) RSV (PCR) Last Vital Signs Temp 37.2 C 01/29/25 18:54 Pulse 82 01/29/25 21:20 Resp 22 01/29/25 21:20 BP 192/94 H 01/29/25 19:31 Pulse Ox 92 01/29/25 21:20 VTE Prohylaxis Risk Level: Moderate/High Risk Contraindications: None Prophylaxis: Pharmacologic Time Spent Time spent with Patient: >75 minutes Time was spent: preparing to see the patient(eg.review tests), obtaining and/or reviewing separately otained hiistory, ordering medications,tests, procedures, referring, communicating with other health resident care provider, indepentently interpreting results, counseling the patient and care coordination
[2025-01-30] VITALS (9 sets, daily range): BP systolic 115–199; BP diastolic 78–99; PULSE 62–82; RESP 16–27; TEMP 36.1–37.3; O2SAT 90–98
--- NOTE | 2025-01-30 00:27 | W.PC.ACHO ---
Registration Status: REG ER Primary Language: Preferred Language: Lithuanian ED Information & Data Chief Complaint AMS/LOC 01/29/25 18:45 Chief Complaint AMS/LOC 01/29/25 18:42 Triage Note Mario Alberto reports AMS LKW 1700. 01/29/25 18:42 Reports delayed speech. Recent Hx of aspiration pneumonia. No temp. 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) Benign hypertension (12/09/05) (Last Reviewed 01/24/25 @ 02:21 by Ricardo Amaral) Hx of cataract removal with insertion of prosthetic lens Posterior subcapsular age-related cataract, right eye Nuclear sclerotic cataract of right eye S/P cholecystectomy (01/24/20) S/P ERCP Arthroscopy (02/10/84) Most Recent Vital Signs Temperature 37.2 C 01/29/25 18:54 Temperature Source Tympanic 01/29/25 18:54 Pulse 78 01/30/25 00:16 Pulse 80 01/30/25 00:20 Respiratory Rate 20 01/30/25 00:20 Respiratory Effort Normal 01/29/25 18:46 Respiratory Depth Shallow 01/29/25 18:46 Respiratory Pattern Normal 01/29/25 18:46 Blood Pressure 176/78 H 01/30/25 00:16 Blood Pressure Mean 115 01/30/25 00:16 Pulse Oximetry 93 01/29/25 23:20 Oxygen Delivery Method Room Air 01/29/25 18:54 Oxygen Flow Rate 0 01/29/25 18:54 Comment notified: metoprolol ordered 01/29/25 22:06 Allergies amlodipine Adverse Reaction (Mild, Verified 01/23/25 19:15) nightmares/restless sleep hydrochlorothiazide Adverse Reaction (Mild, Verified 01/23/25 19:15) possible Erectile dysfunction finasteride Adverse Reaction (Verified 01/23/25 19:15) Hypertension Active Medications Generic Name Dose Route Start Last Admin Trade Name Freq PRN Reason Stop Dose Admin Iohexol 100 ml 01/29/25 21:45 01/29/25 21:43 Omnipaque 350 Mg/Ml 100 Ml Btl IJ 02/28/25 23:59 70 ml DIRECTED PIPER Administration Sodium Chloride 50 ml 01/29/25 21:45 01/29/25 21:43 Normal Saline - Diluent 50 Ml Vial IJ 50 ml DIRECTED PIPER Administration Sodium Chloride 0 ml 01/29/25 21:42 01/29/25 21:43 Normal Saline Flush 10 Ml Syr IVP 10 ml PRN PRN Administration IV IV Catheter Type [Forearm] Peripheral IV IV Catheter Type [Right Peripheral IV Forearm] IV Catheter Gauge [Forearm] 20 IV Catheter Gauge [Right 20 Forearm] Diet Orders Category Date Time Status Regular/Normal [DIET] Nutrition 01/30/25 Breakfast Active Diagnostics 01/30/25 01/29/25 01/29/25 Range/Units 05:35 22:30 22:05 WBC Pending (4.4-10.8) 10^3/uL RBC Pending (4.36-5.78) 10^6/uL Hgb Pending (13.5-17.5) g/dL Hct Pending (40.0-50.0) % MCV Pending (80-95) fL MCH Pending (27.0-33.0) pg MCHC Pending (32.0-36.0) % RDW Pending (11.8-14.1) % Plt Count Pending (130-400) 10^3/uL MPV Pending (8.0-11.0) fL Immature Gran % Pending % Neutrophils % Pending % Lymphocytes % Pending % Monocytes % Pending % Eosinophils % Pending % Basophils % Pending % Nucleated RBC % (0.0-0.3) % Absolute Neutrophils Pending (1.2-6.7) 10^3/uL Absolute Lymphocytes Pending (1.2-3.4) 10^3/uL Absolute Monocytes Pending (0.1-0.8) 10^3/uL Absolute Eosinophils Pending (0.0-0.7) 10^3/uL Absolute Basophils Pending (0.0-0.2) 10^3/uL PT (9.1-11.1) sec INR (0.9-1.1) APTT (20.6-30.2) sec Sodium Pending (136-145) mmol/L Potassium Pending (3.5-5.1) mmol/L Chloride Pending (98-107) mmol/L Carbon Dioxide Pending (20.0-31.0) mmol/L Anion Gap Pending (3-11) mmol/L BUN Pending (9-23) mg/dL Creatinine Pending (0.73-1.18) mg/dL Est GFR (CKD-EPI 2020) Pending (mL/min/1.73m2) Glucose Pending (74-106) mg/dL Calcium Pending (8.3-10.6) mg/dL Magnesium (1.6-2.6) mg/dL Total Bilirubin Pending (0.2-1.2) mg/dL AST Pending (<34) U/L ALT Pending (10-49) U/L Alkaline Phosphatase Pending (46-116) U/L Troponin I 12 (<54) ng/L NT-Pro-B Natriuret Pep (<300) pg/mL Total Protein Pending (5.7-8.2) g/dL Albumin Pending (3.2-5.0) g/dL Lipase (<53) U/L Urine Color (Yellow) Urine Clarity (Clear) Urine pH (5-8) Ur Specific [place] (1.005-1.025) Urine Protein (Neg-Trace) mg/dL Urine Ketones (Negative) mg/dL Urine Blood (Negative) Urine Nitrite (Negative) Urine Bilirubin (Negative) Urine Urobilinogen (Up to 0.2) mg/dL Ur Leukocyte Esterase (Negative) Urine RBC (0-2) HPF Urine WBC (0-5) HPF Ur Epithelial Cells (Negative) HPF Urine Crystals (Negative) HPF Urine Bacteria (Negative) HPF Urine Casts (Negative) LPF Urine Mucus (Negative) Urine Other (Negative) Ur Culture Indicated? Urine Glucose (Negative) mg/dL COVID-19 Source Nasopharynx SARS-CoV-2 (PCR) Negative (Negative) Influenza Type A (PCR) Negative (Negative) Influenza Type B (PCR) Negative (Negative) RSV (PCR) Negative (Negative) 01/29/25 01/29/25 Range/Units 21:13 20:45 WBC 9.85 (4.4-10.8) 10^3/uL RBC 4.79 (4.36-5.78) 10^6/uL Hgb 12.9 L (13.5-17.5) g/dL Hct 40.5 (40.0-50.0) % MCV 85 (80-95) fL MCH 26.9 L (27.0-33.0) pg MCHC 31.9 L (32.0-36.0) % RDW 15.9 H (11.8-14.1) % Plt Count 149 (130-400) 10^3/uL MPV 9.2 (8.0-11.0) fL Immature Gran % 1.4 % Neutrophils % 66.7 % Lymphocytes % 21.0 % Monocytes % 8.6 % Eosinophils % 1.7 % Basophils % 0.6 % Nucleated RBC % 0.0 (0.0-0.3) % Absolute Neutrophils 6.56 (1.2-6.7) 10^3/uL Absolute Lymphocytes 2.07 (1.2-3.4) 10^3/uL Absolute Monocytes 0.85 H (0.1-0.8) 10^3/uL Absolute Eosinophils 0.17 (0.0-0.7) 10^3/uL Absolute Basophils 0.06 (0.0-0.2) 10^3/uL PT 10.5 (9.1-11.1) sec INR 1.1 (0.9-1.1) APTT 25.4 (20.6-30.2) sec Sodium 137 (136-145) mmol/L Potassium 3.7 (3.5-5.1) mmol/L Chloride 96 L (98-107) mmol/L Carbon Dioxide 31.7 H (20.0-31.0) mmol/L Anion Gap 9.1 (3-11) mmol/L BUN 23 (9-23) mg/dL Creatinine 1.14 (0.73-1.18) mg/dL Est GFR (CKD-EPI 2020) 61.01 (mL/min/1.73m2) Glucose 91 (74-106) mg/dL Calcium 9.2 (8.3-10.6) mg/dL Magnesium 2.0 (1.6-2.6) mg/dL Total Bilirubin 1.1 (0.2-1.2) mg/dL AST 12 (<34) U/L ALT 10 (10-49) U/L Alkaline Phosphatase 59 (46-116) U/L Troponin I 13 (<54) ng/L NT-Pro-B Natriuret Pep 2541 H (<300) pg/mL Total Protein 7.5 (5.7-8.2) g/dL Albumin 4.3 (3.2-5.0) g/dL Lipase 43 (<53) U/L Urine Color Yellow (Yellow) Urine Clarity Clear (Clear) Urine pH 5.5 (5-8) Ur Specific [place] 1.025 (1.005-1.025) Urine Protein 100 H (Neg-Trace) mg/dL Urine Ketones Negative (Negative) mg/dL Urine Blood Large H (Negative) Urine Nitrite Negative (Negative) Urine Bilirubin Negative (Negative) Urine Urobilinogen 0.2 (Up to 0.2) mg/dL Ur Leukocyte Esterase Trace H (Negative) Urine RBC 20-50 H (0-2) HPF Urine WBC 10-20 H (0-5) HPF Ur Epithelial Cells Rare (Negative) HPF Urine Crystals Negative (Negative) HPF Urine Bacteria Few (Negative) HPF Urine Casts Negative (Negative) LPF Urine Mucus Negative (Negative) Urine Other Few Yeast (Negative) Ur Culture Indicated? Yes Urine Glucose Negative (Negative) mg/dL COVID-19 Source SARS-CoV-2 (PCR) (Negative) Influenza Type A (PCR) (Negative) Influenza Type B (PCR) (Negative) RSV (PCR) (Negative) 01/29/25 21:13 Urine Culture - Pending Urine - Reflex from Ua [id number] Documentation Fingerstick Glucose Start: 01/29/25 18:57 Freq: Status: Active Protocol: Activity Type Activity Date Activity User E-sign Co-sign Detail Recorded Client Recorded Date Recorded By Document 01/29/25 18:55 KERMIT DAEMON(10) [id number] 01/29/25 18:57 BKG DAEMON(10) Intake and Output - 24 Hour Total 12/20/25 18:25 thru 01/29/25 18:42 Weight 111.9 kg Falls Risk Assessment History of Falls Previous History 01/29/25 18:45 Contributing Factors Confusion,Unstable, 01/29/25 18:45 Impairments,Incontinence Ambulatory Aids Uses ambulatory device + 01/29/25 18:45 Tubes/Lines With any additional score 01/29/25 18:45 Gait Evaluation W/any additional score 01/29/25 18:45 Cognition Cognitive impairment 01/29/25 18:45 Fall Total Score 112 01/29/25 18:45 Level of Risk Maximum Risk 01/29/25 18:45 Problems (Last Reviewed 01/24/25 @ 02:21 by Ricardo Amaral) CHF (congestive heart failure) (Chronic) AMS (altered mental status) (Acute) History of pulmonary embolism (Acute) Left ureteral injury (Acute) Hyperparathyroidism (Chronic) Abnormal urinalysis (Acute) CKD (chronic kidney disease) stage 3, GFR 30-59 ml/min (Acute) HTN (hypertension) (Chronic) Attestation Statement: By documenting the first initial, last name, and credentials of the reporting nurse below, both parties acknowledge that all relevant information regarding the patient handoff has been communicated, and that all questions have been addressed to ensure continuity and safety of care. Additional P All questions answered. Report Received From: report received from Yon Fishman RN @ 00:20
[2025-01-30] MEDS: Normal Saline 1,000 ML 75 ML IV ×2 (00:44→15:42)
--- NOTE | 2025-01-30 00:57 | W.ED.GENAD ---
Discharge Plan Disposition Patient Disposition: Admit to [facility] Discharge Details Clinical Impression: AMS (altered mental status) Admit Date/Time: 01/29/25 23:48 Admit Provider: Gabo Mao Attending Provider: Gabo Mao Primary Care Provider: Anne-Marie Wright ED Provider: Tripp Abraham Discharge Data Discharge Date/Time-TO BE ENTERED AT DEPARTURE: 01/30/25 00:30 HPI General Date/Time Provider Initiated Documentation: 01/29/25 19:07. HPI Narrative: MDM/Narrative: 84-year-old male with past medical history of percutaneous drains ureteral nephrostomy tube on the left side, recurrent UTIs with resistant species, CHF, presents for evaluation of [facility]. Vital signs notable for mild hypertension and tachypnea, exam shows no focal evidence of acute infectious etiology, trauma, or sequela of acute organ failure, however patient is not at his normal baseline, and appears encephalopathic with no focal neurologic deficits. Given patient presents for altered mental status within 4-hour window will obtain CTA head and neck to rule out any possible ischemic etiologies, however I am most suspicious for recurrent UTI as patient has multiple recent admissions for similar presentations which have been due to UTI. ED course: Urinalysis is not terribly impressive for infection although there is some leukocyte esterase, however I would still keep UTI as cause of the patient's encephalopathy high on the differential given prior cultures. Happily CTA imaging shows no acute findings, labs are otherwise unremarkable, patient with an elevated BNP, which appears about his baseline from recent admission. Case discussed with Dr. Mao the hospitalist, who is in agreement for admission for further observation and workup of persistent altered mental status. Disposition: Admit to [facility] HPI: 84-year-old male with a past medical history of CHF, status post left percutaneous trans ureteral nephrostomy tube on the left side, and recurrent UTIs, presents for evaluation of altered mental status. Patient is currently at rehab at the [facility], and was noted at approximately 4 PM today that he was not acting himself. Prompting evaluation here in the emergency department. Patient is unable to provide much history, however his states that she was with him all day notes that he seemed somewhat tired earlier in the morning, and around 4:00 could not make any coherent statements any longer. She notes this is similar to how the patient presented with prior urinary tract infections. History of present illness is limited due to the patient's inability to provide history. ROS: Negative besides as mentioned above Exam: Gen: A&O x 1, able to answer some questions. HEENT: NCAT, EOMI, not icteric. External ears normal. No rhinorrhea. Moist mucous membranes. Neck: Supple, full range of motion, no observable masses, No meningeal sign. Lungs: No Respiratory distress. CV: RRR, no edema. Abdomen: Soft, nondistended, No rebound tenderness. There is a left percutaneous nephrostomy tube in place which appears clean dry and intact draining dark yellow urine MSK: No joint swelling, no redness. Skin: No rashes, petechiae, lesions. Normal color per patient. Neuro: Normal Gait, Grossly intact. Psych: Appropriate for situation. Rhythm: Sinus rhythm Rate: 75 [place]: Leftward axis Intervals: Normal intervals Other findings: No acute ST segment or T wave changes to suggest acute ischemia. Labs: 01/29/25 21:13 Urine - Reflex from Ua Urine Culture - Pending Laboratory Tests Range/Units 01/29/25 01/29/25 01/29/25 20:45 21:13 22:05 WBC (4.4-10.8) 10^3/uL 9.85 RBC (4.36-5.78) 10^6/uL 4.79 Hgb (13.5-17.5) g/dL 12.9 L Hct (40.0-50.0) % 40.5 MCV (80-95) fL 85 MCH (27.0-33.0) pg 26.9 L MCHC (32.0-36.0) % 31.9 L RDW (11.8-14.1) % 15.9 H Plt Count (130-400) 10^3/uL 149 MPV (8.0-11.0) fL 9.2 Immature Gran % % 1.4 Neutrophils % % 66.7 Lymphocytes % % 21.0 Monocytes % % 8.6 Eosinophils % % 1.7 Basophils % % 0.6 Nucleated RBC % (0.0-0.3) % 0.0 Absolute Neutrophils (1.2-6.7) 10^3/uL 6.56 Absolute Lymphocytes (1.2-3.4) 10^3/uL 2.07 Absolute Monocytes (0.1-0.8) 10^3/uL 0.85 H Absolute Eosinophils (0.0-0.7) 10^3/uL 0.17 Absolute Basophils (0.0-0.2) 10^3/uL 0.06 PT (9.1-11.1) sec 10.5 INR (0.9-1.1) 1.1 APTT (20.6-30.2) sec 25.4 Sodium (136-145) mmol/L 137 Potassium (3.5-5.1) mmol/L 3.7 Chloride (98-107) mmol/L 96 L Carbon Dioxide (20.0-31.0) mmol/L 31.7 H Anion Gap (3-11) mmol/L 9.1 BUN (9-23) mg/dL 23 Creatinine (0.73-1.18) mg/dL 1.14 Est GFR (CKD-EPI 2020) (mL/min/1.73m2) 61.01 Glucose (74-106) mg/dL 91 Calcium (8.3-10.6) mg/dL 9.2 Magnesium (1.6-2.6) mg/dL 2.0 Total Bilirubin (0.2-1.2) mg/dL 1.1 AST (<34) U/L 12 ALT (10-49) U/L 10 Alkaline Phosphatase (46-116) U/L 59 Troponin I (<54) ng/L 13 NT-Pro-B Natriuret Pep (<300) pg/mL 2541 H Total Protein (5.7-8.2) g/dL 7.5 Albumin (3.2-5.0) g/dL 4.3 Lipase (<53) U/L 43 Urine Color (Yellow) Yellow Urine Clarity (Clear) Clear Urine pH (5-8) 5.5 Ur Specific [place] (1.005-1.025) 1.025 Urine Protein (Neg-Trace) mg/dL 100 H Urine Ketones (Negative) mg/dL Negative Urine Blood (Negative) Large H Urine Nitrite (Negative) Negative Urine Bilirubin (Negative) Negative Urine Urobilinogen (Up to 0.2) mg/dL 0.2 Ur Leukocyte Esterase (Negative) Trace H Urine RBC (0-2) HPF 20-50 H Urine WBC (0-5) HPF 10-20 H Ur Epithelial Cells (Negative) HPF Rare Urine Crystals (Negative) HPF Negative Urine Bacteria (Negative) HPF Few Urine Casts (Negative) LPF Negative Urine Mucus (Negative) Negative Urine Other (Negative) Few Yeast Ur Culture Indicated? Yes Urine Glucose (Negative) mg/dL Negative COVID-19 Source Nasopharynx SARS-CoV-2 (PCR) (Negative) Negative Influenza Type A (PCR) (Negative) Negative Influenza Type B (PCR) (Negative) Negative RSV (PCR) (Negative) Negative Range/Units 01/29/25 22:30 WBC (4.4-10.8) 10^3/uL RBC (4.36-5.78) 10^6/uL Hgb (13.5-17.5) g/dL Hct (40.0-50.0) % MCV (80-95) fL MCH (27.0-33.0) pg MCHC (32.0-36.0) % RDW (11.8-14.1) % Plt Count (130-400) 10^3/uL MPV (8.0-11.0) fL Immature Gran % % Neutrophils % % Lymphocytes % % Monocytes % % Eosinophils % % Basophils % % Nucleated RBC % (0.0-0.3) % Absolute Neutrophils (1.2-6.7) 10^3/uL Absolute Lymphocytes (1.2-3.4) 10^3/uL Absolute Monocytes (0.1-0.8) 10^3/uL Absolute Eosinophils (0.0-0.7) 10^3/uL Absolute Basophils (0.0-0.2) 10^3/uL PT (9.1-11.1) sec INR (0.9-1.1) APTT (20.6-30.2) sec Sodium (136-145) mmol/L Potassium (3.5-5.1) mmol/L Chloride (98-107) mmol/L Carbon Dioxide (20.0-31.0) mmol/L Anion Gap (3-11) mmol/L BUN (9-23) mg/dL Creatinine (0.73-1.18) mg/dL Est GFR (CKD-EPI 2020) (mL/min/1.73m2) Glucose (74-106) mg/dL Calcium (8.3-10.6) mg/dL Magnesium (1.6-2.6) mg/dL Total Bilirubin (0.2-1.2) mg/dL AST (<34) U/L ALT (10-49) U/L Alkaline Phosphatase (46-116) U/L Troponin I (<54) ng/L 12 NT-Pro-B Natriuret Pep (<300) pg/mL Total Protein (5.7-8.2) g/dL Albumin (3.2-5.0) g/dL Lipase (<53) U/L Urine Color (Yellow) Urine Clarity (Clear) Urine pH (5-8) Ur Specific [place] (1.005-1.025) Urine Protein (Neg-Trace) mg/dL Urine Ketones (Negative) mg/dL Urine Blood (Negative) Urine Nitrite (Negative) Urine Bilirubin (Negative) Urine Urobilinogen (Up to 0.2) mg/dL Ur Leukocyte Esterase (Negative) Urine RBC (0-2) HPF Urine WBC (0-5) HPF Ur Epithelial Cells (Negative) HPF Urine Crystals (Negative) HPF Urine Bacteria (Negative) HPF Urine Casts (Negative) LPF Urine Mucus (Negative) Urine Other (Negative) Ur Culture Indicated? Urine Glucose (Negative) mg/dL COVID-19 Source SARS-CoV-2 (PCR) (Negative) Influenza Type A (PCR) (Negative) Influenza Type B (PCR) (Negative) RSV (PCR) (Negative) Radiology: Accession No. : [id number] Creator : GABO BARRY Dictator : GABO BARRY Stripper Latex : Operational Meteorologist : GABO BARRY Approver2 : Report Date : 01/29/2025 21:44:07 Exam(s) XR PORTABLE CHEST AP EXAM: XR PORTABLE CHEST AP CLINICAL HISTORY: AMS TECHNIQUE: 2D digital imaging was performed of the chest. One image was obtained. An AP view was obtained. COMPARISON: CR,XR XR PORTABLE CHEST AP from 01/23/2025 FINDINGS: There are low lung volumes. MEDIASTINUM: Normal. HEART: Normal. PULMONARY VASCULATURE: There is atherosclerosis and tortuosity of the thoracic aorta. LUNGS: There are increased perihilar interstitial markings. There are no focal consolidating infiltrates present. PLEURAL SPACE: No pleural effusion or pneumothorax. BONE:Within normal limits for the patient's age. OTHER FINDINGS:Normal. IMPRESSION: 1. Low lung volumes. 2. Increased perihilar interstitial markings. This can be seen with interstitial edema or pneumonia. Please correlate clinically. 3. No focal consolidating infiltrates are present. 4. The preliminary [facility] report was reviewed. DATA REPOSITORY: RADIATION DOSE DELIVERED: PROCEDURE INFORMATION: Exam: CTA Head Without And With Contrast, Arteriography Exam date and time: 01/29/2025 9:39 PM Age: 84 years old Clinical indication: Other: AMS TECHNIQUE: Imaging protocol: Computed tomographic angiography of the head without and with contrast. Exam focused on the arteries. 3D rendering (Not supervised by radiologist): MIP and/or 3D reconstructed images were created by the technologist. Contrast material: OMNIPAQUE 350; Contrast volume: 70 ml; Contrast route: IV; COMPARISON: CT BRAIN NECK CTA 09/18/2024 4:47 PM FINDINGS: ANTERIOR CIRCULATION: Right internal carotid artery: Trace atheromatous calcification is present within the cavernous portions of the right internal carotid arteries. Less than 50% luminal stenosis. Right middle cerebral artery: No occlusion or significant stenosis. No aneurysm. Right anterior cerebral artery: No occlusion or significant stenosis. No aneurysm. Left internal carotid artery: Moderate atheromatous calcification is present within the cavernous portions of the left internal carotid arteries. Less than 50% luminal stenosis. Moderate atheromatous calcifications are present at the left carotid bulb. Left middle cerebral artery: No occlusion or significant stenosis. No aneurysm. Left anterior cerebral artery: No occlusion or significant stenosis. No aneurysm. POSTERIOR CIRCULATION: Right vertebral artery: No occlusion or significant stenosis. No aneurysm. ALINA CALERO Preliminary Radiology Report Page 2 of 3 Left vertebral artery: No occlusion or significant stenosis. No aneurysm. Basilar artery: No occlusion or significant stenosis. No aneurysm. Right posterior cerebral artery: No occlusion or significant stenosis. No aneurysm. Left posterior cerebral artery: No occlusion or significant stenosis. No aneurysm. HEAD: Brain: No acute intracranial hemorrhage or mass lesions. No midline shift. Normal landrum-white differentiation. Cerebral ventricles: Normal. No ventriculomegaly. Bones: Moderate degenerative changes are present throughout the cervical spine including intervertebral disc space narrowing, endplate sclerosis and osteophytosis. Paranasal sinuses: Visualized sinuses are normal. No fluid levels. Mastoid air cells: Visualized mastoids are normal. No mastoid effusion. Soft tissues: Unremarkable. IMPRESSION: 1. No stenosis, occlusion, or aneurysm. 2. No acute intracranial findings. PROCEDURE INFORMATION: Exam: CTA Neck Without And With Contrast Exam date and time: 01/29/2025 9:39 PM Age: 84 years old Clinical indication: Other: AMS TECHNIQUE: Imaging protocol: Computed tomographic angiography of the neck without and with contrast. Exam focused on the cervical segments of the vasculature. 3D rendering (Not supervised by radiologist): MIP and/or 3D reconstructed images were created by the technologist. Contrast material: OMNIPAQUE 350; Contrast volume: 70 ml; Contrast route: IV; COMPARISON: CT BRAIN NECK CTA 09/18/2024 4:47 PM FINDINGS: Right common carotid artery: No stenosis. No dissection or occlusion. Right internal carotid artery: Moderate atheromatous calcifications are present at the right carotid bulb. Right external carotid artery: No occlusion or stenosis of the origin. Left common carotid artery: No stenosis. No dissection or occlusion. Left internal carotid artery: No stenosis of the extracranial segment. No dissection or occlusion. Left external carotid artery: No occlusion or stenosis of the origin. ALINA CALERO Preliminary Radiology Report REFRIGERATING OILER (QA) DISCREPANCY? If there is a discrepancy between the preliminary and final interpretation, please notify [facility] via [email or web address]. If you do not have access to our QA portal, call our QA team at [phone] CONFIDENTIALITY STATEMENT This report is intended only for the use of the referring physician, and only in accordance with law, If you received this in error, call [phone] Page 3 of 3 Right vertebral artery: There is a high-grade stenosis at the origin of the right vertebral artery. The more superior right vertebral artery demonstrates normal caliber and course. Left vertebral artery: No stenosis. No dissection or occlusion. Aorta: Atheromatous calcifications are present within the visualized thoracic aorta. Soft tissues: Normal. No significant soft tissue swelling. Bones/joints: No acute fracture. IMPRESSION: 1. High-grade stenosis at the origin of the right vertebral artery. 2. No other hemodynamically significant stenosis, occlusion, or aneurysm. REFERENCES: NASCET CRITERIA. The degree of stenosis in the cervical segment of the internal carotid artery is based on NASCET criteria. Normal is no stenosis. Mild is less than 50% stenosis. Moderate is 50- 69% stenosis. Severe is 70% to 99% stenosis. Total occlusion is no detectable patent lumen. Thank you for allowing us to participate in the care of your patient. Dictated and Authenticated by: Lizabeth Cochran MD Related Data Home Medications ?Medication ?Instructions ?Recorded ?Confirmed cholecalciferol (vitamin D3) 1,250 1,250 mcg PO QWEEK 06/15/24 01/29/25 mcg (50,000 unit) capsule acetaminophen 500 mg capsule 1,000 mg PO BID 09/18/24 01/29/25 calcitonin (salmon) 200 1 spray intranasal .QOD 09/18/24 01/29/25 unit/actuation nasal spray Held on 01/29/25. Instructions: Pt Stopped/Never Started docusate sodium 100 mg capsule 100 mg PO DAILY 09/18/24 01/29/25 furosemide 20 mg tablet (Lasix) 20 mg PO BID 09/18/24 01/29/25 metoprolol tartrate 25 mg tablet 12.5 mg PO BID 09/18/24 01/29/25 polyethylene glycol 3350 17 17 g PO BID 09/18/24 01/29/25 gram/dose oral powder (Miralax) rivaroxaban 10 mg tablet (Xarelto) 10 mg PO QPM 09/18/24 01/29/25 diclofenac sodium 1 % topical gel 4 g topical DAILY 11/29/24 01/29/25 calcitriol 0.25 mcg capsule 0.25 mcg PO DAILY 01/23/25 01/29/25 omeprazole 20 mg capsule,delayed 20 mg PO DAILY 01/23/25 01/29/25 release Held on 01/29/25. Instructions: Pt Stopped/Never Started ondansetron 4 mg disintegrating 4 mg PO DAILY PRN 01/23/25 01/29/25 tablet amoxicillin 875 mg-potassium 1 tab PO Q12H #6 tabs 01/26/25 01/29/25 clavulanate 125 mg tablet Held on 01/29/25. Instructions: Pt Stopped/Never Started Previous Rx's ?Medication ?Instructions ?Recorded amoxicillin 875 mg-potassium 1 tab PO Q12H #6 tabs 01/26/25 clavulanate 125 mg tablet Held on 01/29/25. Instructions: Pt Stopped/Never Started Allergies Allergy/AdvReac Type Severity Reaction Status Date / Time amlodipine AdvReac Mild nightmares/restless Verified 01/23/25 19:15 sleep hydrochlorothiazide AdvReac Mild possible Verified 01/23/25 19:15 Erectile dysfunction finasteride AdvReac Hypertensio Verified 01/23/25 19:15 n General Stated Complaint: AMS/LOC THALIA: 3 Course Vital Signs Vital signs: Vital Signs Respiratory Rate 26 H 01/29/25 18:38 Temperature 37.3 C 01/30/25 00:48 Temperature Source Tympanic 01/29/25 18:54 Pulse 82 01/30/25 00:48 Pulse Rhythm Regular 01/30/25 00:48 Pulse 80 01/30/25 00:20 Respiratory Rate 18 01/30/25 00:48 Respiratory Effort Normal 01/30/25 00:48 Respiratory Depth Normal 01/30/25 00:48 Respiratory Pattern Normal 01/30/25 00:48 Blood Pressure 183/95 H 01/30/25 00:48 Blood Pressure Mean 115 01/30/25 00:16 Pulse Oximetry 93 01/30/25 00:48 Oxygen Delivery Method Room Air 01/30/25 00:48 Oxygen Flow Rate 0 01/30/25 00:48 Comment notified: metoprolol ordered 01/29/25 22:06 Lab/Test Results Lab/Test Results: 01/29/25 21:13 Urine - Reflex from Ua Urine Culture - Pending Laboratory Tests Range/Units 01/29/25 01/29/25 01/29/25 20:45 21:13 22:05 WBC (4.4-10.8) 10^3/uL 9.85 RBC (4.36-5.78) 10^6/uL 4.79 Hgb (13.5-17.5) g/dL 12.9 L Hct (40.0-50.0) % 40.5 MCV (80-95) fL 85 MCH (27.0-33.0) pg 26.9 L MCHC (32.0-36.0) % 31.9 L RDW (11.8-14.1) % 15.9 H Plt Count (130-400) 10^3/uL 149 MPV (8.0-11.0) fL 9.2 Immature Gran % % 1.4 Neutrophils % % 66.7 Lymphocytes % % 21.0 Monocytes % % 8.6 Eosinophils % % 1.7 Basophils % % 0.6 Nucleated RBC % (0.0-0.3) % 0.0 Absolute Neutrophils (1.2-6.7) 10^3/uL 6.56 Absolute Lymphocytes (1.2-3.4) 10^3/uL 2.07 Absolute Monocytes (0.1-0.8) 10^3/uL 0.85 H Absolute Eosinophils (0.0-0.7) 10^3/uL 0.17 Absolute Basophils (0.0-0.2) 10^3/uL 0.06 PT (9.1-11.1) sec 10.5 INR (0.9-1.1) 1.1 APTT (20.6-30.2) sec 25.4 Sodium (136-145) mmol/L 137 Potassium (3.5-5.1) mmol/L 3.7 Chloride (98-107) mmol/L 96 L Carbon Dioxide (20.0-31.0) mmol/L 31.7 H Anion Gap (3-11) mmol/L 9.1 BUN (9-23) mg/dL 23 Creatinine (0.73-1.18) mg/dL 1.14 Est GFR (CKD-EPI 2020) (mL/min/1.73m2) 61.01 Glucose (74-106) mg/dL 91 Calcium (8.3-10.6) mg/dL 9.2 Magnesium (1.6-2.6) mg/dL 2.0 Total Bilirubin (0.2-1.2) mg/dL 1.1 AST (<34) U/L 12 ALT (10-49) U/L 10 Alkaline Phosphatase (46-116) U/L 59 Troponin I (<54) ng/L 13 NT-Pro-B Natriuret Pep (<300) pg/mL 2541 H Total Protein (5.7-8.2) g/dL 7.5 Albumin (3.2-5.0) g/dL 4.3 Lipase (<53) U/L 43 Urine Color (Yellow) Yellow Urine Clarity (Clear) Clear Urine pH (5-8) 5.5 Ur Specific [place] (1.005-1.025) 1.025 Urine Protein (Neg-Trace) mg/dL 100 H Urine Ketones (Negative) mg/dL Negative Urine Blood (Negative) Large H Urine Nitrite (Negative) Negative Urine Bilirubin (Negative) Negative Urine Urobilinogen (Up to 0.2) mg/dL 0.2 Ur Leukocyte Esterase (Negative) Trace H Urine RBC (0-2) HPF 20-50 H Urine WBC (0-5) HPF 10-20 H Ur Epithelial Cells (Negative) HPF Rare Urine Crystals (Negative) HPF Negative Urine Bacteria (Negative) HPF Few Urine Casts (Negative) LPF Negative Urine Mucus (Negative) Negative Urine Other (Negative) Few Yeast Ur Culture Indicated? Yes Urine Glucose (Negative) mg/dL Negative COVID-19 Source Nasopharynx SARS-CoV-2 (PCR) (Negative) Negative Influenza Type A (PCR) (Negative) Negative Influenza Type B (PCR) (Negative) Negative RSV (PCR) (Negative) Negative Range/Units 01/29/25 22:30 WBC (4.4-10.8) 10^3/uL RBC (4.36-5.78) 10^6/uL Hgb (13.5-17.5) g/dL Hct (40.0-50.0) % MCV (80-95) fL MCH (27.0-33.0) pg MCHC (32.0-36.0) % RDW (11.8-14.1) % Plt Count (130-400) 10^3/uL MPV (8.0-11.0) fL Immature Gran % % Neutrophils % % Lymphocytes % % Monocytes % % Eosinophils % % Basophils % % Nucleated RBC % (0.0-0.3) % Absolute Neutrophils (1.2-6.7) 10^3/uL Absolute Lymphocytes (1.2-3.4) 10^3/uL Absolute Monocytes (0.1-0.8) 10^3/uL Absolute Eosinophils (0.0-0.7) 10^3/uL Absolute Basophils (0.0-0.2) 10^3/uL PT (9.1-11.1) sec INR (0.9-1.1) APTT (20.6-30.2) sec Sodium (136-145) mmol/L Potassium (3.5-5.1) mmol/L Chloride (98-107) mmol/L Carbon Dioxide (20.0-31.0) mmol/L Anion Gap (3-11) mmol/L BUN (9-23) mg/dL Creatinine (0.73-1.18) mg/dL Est GFR (CKD-EPI 2020) (mL/min/1.73m2) Glucose (74-106) mg/dL Calcium (8.3-10.6) mg/dL Magnesium (1.6-2.6) mg/dL Total Bilirubin (0.2-1.2) mg/dL AST (<34) U/L ALT (10-49) U/L Alkaline Phosphatase (46-116) U/L Troponin I (<54) ng/L 12 NT-Pro-B Natriuret Pep (<300) pg/mL Total Protein (5.7-8.2) g/dL Albumin (3.2-5.0) g/dL Lipase (<53) U/L Urine Color (Yellow) Urine Clarity (Clear) Urine pH (5-8) Ur Specific [place] (1.005-1.025) Urine Protein (Neg-Trace) mg/dL Urine Ketones (Negative) mg/dL Urine Blood (Negative) Urine Nitrite (Negative) Urine Bilirubin (Negative) Urine Urobilinogen (Up to 0.2) mg/dL Ur Leukocyte Esterase (Negative) Urine RBC (0-2) HPF Urine WBC (0-5) HPF Ur Epithelial Cells (Negative) HPF Urine Crystals (Negative) HPF Urine Bacteria (Negative) HPF Urine Casts (Negative) LPF Urine Mucus (Negative) Urine Other (Negative) Ur Culture Indicated? Urine Glucose (Negative) mg/dL COVID-19 Source SARS-CoV-2 (PCR) (Negative) Influenza Type A (PCR) (Negative) Influenza Type B (PCR) (Negative) RSV (PCR) (Negative) Medical Decision Making Quality:SDOH Health Related Social Needs: Health related social needs daily activities PFSH All Active Problems (Updated 01/30/25 @ 14:50 by Tripp Abraham MD) CHF (congestive heart failure) (Chronic) AMS (altered mental status) (Acute) History of pulmonary embolism (Acute) Left ureteral injury (Acute) 09/08/24 [facility] [place] [place] Discharge planning issues (Acute) Hyperparathyroidism (Chronic) Stenosis of right vertebral artery (Chronic) Acute alteration in mental status (Acute) Urinary tract infection associated with nephrostomy catheter (Acute) Complicated UTI (urinary tract infection) (Acute) Renal calculus, left (Chronic) Nail dystrophy (Acute) Yeast UTI (Acute) Confusion associated with infection (Acute) Confusion (Acute) Abnormal urinalysis (Acute) Hematuria (Acute) Acute hypoxic respiratory failure (Acute) Edema of both lower extremities (Acute) Well-managed, with exercise/activity; b/l general .. trial compression and lasix Elevated parathyroid hormone (Acute) Osteoarthritis of right knee (Acute) Steroid injection: 01/14/2025; 03/04/24; 05/19/2023 Hypercalcemia (Acute) CKD (chronic kidney disease) stage 3, GFR 30-59 ml/min (Acute) Stage 3, 2022, with LALA (GFR <30!) 2' over-diures.. Hx stage 2-3 (2021) Edema of foot (Acute) Knee pain, bilateral (Acute) ? goop injection Onychomycosis (Acute) Lumbar spondylosis (Acute) Lumbar back pain (Acute) Lumbar adjacent segment disease with spondylolisthesis (Acute) snf (current) use of anticoagulants (Acute) Osteoarthritis of left knee (Acute) Steroid injection: 01/14/2025; 03/04/24; 05/19/2023; 12/07/2020 HTN (hypertension) (Chronic) Hyperlipidemia (Chronic 10/24/04) RISK 12% 11/2005; LDL goal 100 Need labs, [ ] Fall 2019 07/01/18 Medical History Pneumonia Leg edema Resolves with activity, qAM, 04/2022.. (Worsening, re-start furosemide, 10/2020) Renal calculus Hematuria: CT (01/09/23) vs. CT (04/27/2022):.. largest calculus in the left kidney has now migrated to the upper left ureter/UPJ level (prob responsible for hematuria)..no obvious dilatation of the left collecting system above this level..another calculus again noted in the left left kidney lower pole calyx (no changed position)..previously present 3 mm calculus in the bladder no longer seen and has most probably passed. 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 07/2021 Left knee pain Acute on chronic. Not a surgical candidate. Cane helping - may need training.. BPH w/o urinary obs/LUTS (02/15/11) nocturiaX1-2; INCR 3X 09/2012 Acute on chronic renal failure Acute exacerbation of congestive heart failure Hosp; resolved .. but with too much fluid restriction post hosp! Bakers cyst Rt, 4cm.. incidental finding on US DVT (deep venous thrombosis) New DVT, 02/2021. Xarelto started. Resolved, Eliquis D/C'd 07/2020 by Surg. C. 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 denies this stated that this was due to an interaction a year ago where having the masks on and he his hard of hearing they stated he had dementia which his and current PCP stated he does not. 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 Taylor started him on HCTZ 2005. High BP readings @ ophtho, urol . turns out to be 2' finesteride, Dr. Smallwood d/c'd .. will follow up in July 2018. 125/85 today, 06/2018, ik. Surgical History Hx of cataract removal with insertion of prosthetic lens 12/11/20 [facility] Posterior subcapsular age-related cataract, right eye Nuclear sclerotic cataract of right eye S/P cholecystectomy (01/24/20) S/P ERCP Arthroscopy (02/10/84) in [place], Left knee Family History Son Age: 62 No problems noted. 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
[2025-01-30] MEDS: Normal Saline Flush 10 ML SYR IVP ×2 (03:20→20:42)
[2025-01-30 06:35] LABS: Abs Immature Grans 0.15 10^3/uL (0.0-0.06); HCT 36.9 % (40.0-50.0); HGB 12.1 g/dL (13.5-17.5); Immature Grans % 1.7 %; MCH 27.7 pg (27.0-33.0); MCHC 32.8 % (32.0-36.0); MCV 84 fL (80-95); MPV 9.2 fL (8.0-11.0); Platelet Count 147 10^3/uL (130-400); RBC 4.37 10^6/uL (4.36-5.78); RDW 15.7 % (11.8-14.1); RDW-SD 48.2 fL; WBC 8.66 10^3/uL (4.4-10.8)
[2025-01-30 06:54] LABS: ALT 8 U/L (10-49); AST 11 U/L (<34); Albumin 3.7 g/dL (3.2-5.0); Alkaline Phosphatase 52 U/L (46-116); Anion Gap 6.7 mmol/L (3-11); BUN 20 mg/dL (9-23); Bilirubin, Total 1.3 mg/dL (0.2-1.2); CO2 31.6 mmol/L (20.0-31.0); Calcium 8.7 mg/dL (8.3-10.6); Chloride 99 mmol/L (98-107); Glucose 89 mg/dL (74-106); Potassium 3.6 mmol/L (3.5-5.1); Sodium 137 mmol/L (136-145); Total Protein 6.5 g/dL (5.7-8.2)
[2025-01-30] MEDS: Metoprolol 12.5 MG TAB PO ×2 (08:58→20:41)
[2025-01-30] MEDS: cefTAZidime 2,000 MG in Normal Saline 100 ML 200 MG IVPB ×3 (08:58→23:37)
[2025-01-30] MEDS: Acetaminophen 500 MG TAB 1000 MG PO ×2 (08:59→20:41)
[2025-01-30] MEDS: Furosemide 20 MG TAB PO ×2 (08:59→15:44)
[2025-01-30] MEDS: Omeprazole 20 MG CAPCR PO (09:00)
[2025-01-30] MEDS: Polyethylene Glycol 3350 17 GM PACKET PO ×2 (09:00→20:43)
[2025-01-30] MEDS: Docusate Sodium 100 MG CAP PO (09:00)
--- NOTE | 2025-01-30 09:05 | PDOC.CMIN ---
Date of service: 01/30/25 Time of Service: 09:05 Care Management Initial Assmt Initial Assessment Reason for Hospitalization: AMS Functional Status/Living Situation Patient Presentation: Raffy was sleeping when CM attempted to meet with him multiple times throughout the day. Per RN, Raffy's was present earlier and stated that he is generally more awake, alert and talkative than he has been today. Per report, he is being treated for a UTI with IV antibiotics. Raffy currently resides at the [facility], where he has been since April 2024. He originally went to the [facility] for short term rehab, and has reportedly made great progress, and his plan remains to return home, if possible. Once he is medically stable for discharge, he will return to the [facility], where he will continue rehab. CM will continue to follow. Town of Residence: [place] Resides with: Other (SNF- [facility]) Significant Other/Family: Local Natural Supports: , Reny Employment Status: Retired Instrumental Activities of Daily Living (ADLs): Requires support Medications Medication Management: No Issues/Barriers identified (medications managed by facility staff) Advance Directives Advance Directives: Do you have an Advance Directive: Y 06/29/20, 09:11 AD On File at [facility]: Y 06/29/20, 09:11 Date Asked 12/23/24 01/14/25, 11:13 AD Date Reviewed 12/02/24 12/02/24, 09:54 COLST On File at [facility] No 09/18/24, 16:00 COLST Date Scanned Code Status Resuscitation Status Full Code Insurance Coverage/Financial Issues Insurance: [facility] AARP [facility] supplement [facility] Care Team Visit Care Team Role Provider Type Anne-Marie Wright Primary Care Provider NON-[facility] STAFF PHYSICIAN InPatient Zohaib Evans Other Providers OTHER Tripp Abraham MD Emergency Provider [facility] STAFF PHYSICIAN Ze Mao MD Admit Provider [facility] STAFF PHYSICIAN Attending Provider Discharge Potential Discharge Needs: Other (coordinated return to SNF) Anticipated Barriers to Discharge: None Identified Patient/Family Education Needs: Review discharge instructions, discuss Ask Me Three Transportation: RCT Plan: Anticipate Raffy will return to the [facility], where he will continue short term rehab vs remain for 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 He will transport via RCT w/c van, coordinated by CM. He will follow up with facility providers and his discharge plan of care. CM will continue to follow. Social Determinants of Health Screening Will the Patient Participate in the Screening?: Unable to obtain PFSH All Active Problems (Updated 01/30/25 @ 14:50 by Tripp Abraham MD) CHF (congestive heart failure) (Chronic) AMS (altered mental status) (Acute) History of pulmonary embolism (Acute) Left ureteral injury (Acute) 09/08/24 [facility] Urology note Discharge planning issues (Acute) Hyperparathyroidism (Chronic) Stenosis of right vertebral artery (Chronic) Acute alteration in mental status (Acute) Urinary tract infection associated with nephrostomy catheter (Acute) Complicated UTI (urinary tract infection) (Acute) Renal calculus, left (Chronic) Nail dystrophy (Acute) Yeast UTI (Acute) Confusion associated with infection (Acute) Confusion (Acute) Abnormal urinalysis (Acute) Hematuria (Acute) Acute hypoxic respiratory failure (Acute) Edema of both lower extremities (Acute) Well-managed, with exercise/activity; b/l general .. trial compression and lasix Elevated parathyroid hormone (Acute) Osteoarthritis of right knee (Acute) Steroid injection: 01/14/2025; 03/04/24; 05/19/2023 Hypercalcemia (Acute) CKD (chronic kidney disease) stage 3, GFR 30-59 ml/min (Acute) Stage 3, 2022, with LALA (GFR <30!) 2' over-diures.. Hx stage 2-3 (2021) Edema of foot (Acute) Knee pain, bilateral (Acute) ? goop injection Onychomycosis (Acute) Lumbar spondylosis (Acute) Lumbar back pain (Acute) Lumbar adjacent segment disease with spondylolisthesis (Acute) nursing home (current) use of anticoagulants (Acute) Osteoarthritis of left knee (Acute) Steroid injection: 01/14/2025; 03/04/24; 05/19/2023; 12/07/2020 HTN (hypertension) (Chronic) Hyperlipidemia (Chronic 10/24/04) RISK 12% 11/2005; LDL goal 100 Need labs, [ ] Fall 2019 07/01/18 Medical History Pneumonia Leg edema Resolves with activity, qAM, 04/2022.. (Worsening, re-start furosemide, 10/2020) Renal calculus Hematuria: CT (01/09/23) vs. CT (04/27/2022):.. largest calculus in the left kidney has now migrated to the upper left ureter/UPJ level (prob responsible for hematuria)..no obvious dilatation of the left collecting system above this level..another calculus again noted in the left left kidney lower pole calyx (no changed position)..previously present 3 mm calculus in the bladder no longer seen and has most probably passed. 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 07/2021 Left knee pain Acute on chronic. Not a surgical candidate. Cane helping - may need training.. BPH w/o urinary obs/LUTS (02/15/11) nocturiaX1-2; INCR 3X 09/2012 Acute on chronic renal failure Acute exacerbation of congestive heart failure Hosp; resolved .. but with too much fluid restriction post hosp! Bakers cyst Rt, 4cm.. incidental finding on US DVT (deep venous thrombosis) New DVT, 02/2021. Xarelto started. Resolved, Cinda D/C'd 07/2020 by Surg. C. 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 denies this stated that this was due to an interaction a year ago where having the masks on and he his hard of hearing they stated he had dementia which his and current PCP stated he does not. 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 Taylor started him on HCTZ 2005. High BP readings @ ophtho, urol . turns out to be 2' finesteride, Dr. Smallwood d/c'd .. will follow up in July 2018. 125/85 today, 06/2018, ik. Surgical History Hx of cataract removal with insertion of prosthetic lens 12/11/20 [facility] Posterior subcapsular age-related cataract, right eye Nuclear sclerotic cataract of right eye S/P cholecystectomy (01/24/20) S/P ERCP Arthroscopy (02/10/84) in CT, Left knee Family History Son Age: 62 No problems noted. 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
--- NOTE | 2025-01-30 10:30 | PT.INIE ---
PT Notes Visit Reasons: ams Inpatient Physical Therapy Evaluation Date: 01/30/25 Referring Doctor: Dr. Mao PT Orders: PT CONSULT: Precautions: Fall, standard Patient Profile/Admitting Diagnosis: Raffy is an 84 year old resident of the [facility] who has been referred for PT evaluation in the acute care setting, where he is being manged for AMS (altered mental status); CHF (congestive heart failure); HTN (hypertension); History of pulmonary embolism; Hyperparathyroidism; CKD (chronic kidney disease) stage 3; Left ureteral injury; Abnormal urinalysis; and Benign hypertension. Social History/Home Situation: Raffy has been residing at [facility] since 04/2024, with the hopes of eventually returning home with his . He is unable to provide any subjective history, however chart review indicates PLOF of assisted ambulation ~25'. Equipment Owned/DME: resident of assisted living facility Subjective: Raffy provides minimal verbal responses. Provides a nod when asked about participating in PT. Objective: General Observation: Resting in bed, IV in RUE, Ng catheter in place. Mental Status: Alert, oriented to place. Provides brief verbal response intermittently throughout session, with single word responses only. Requires single step commands, which he follows 50% of the time. Pain: shakes head no Vital Signs: monitored by nursing ROM: Right Upper Extremity: Demonstrates active flexion to 80*. AB 60*. Elbow motion WFL. Left Upper Extremity: Demonstrates active flexion to 120*, AB 80*. Elbow motion WFL Right Lower Extremity: Knee extension -10*, otherwise WFL Left Lower Extremity: Knee extension -10*, otherwise WFL Strength: Right Upper Extremity: Shoulder flexion 3-/5. AB 3-/5. Biceps 3/5. Left Upper Extremity: Shoulder flexion 3-/5. AB 3-/5. Biceps 3/5. Right Lower Extremity: Hip flexion 3-/5. Quads 3-/5. Ankle DF 3-/5. Left Lower Extremity: Hip flexion 3-/5. Quads 3-/5. Ankle DF 3-/5. Bed Mobility/Transfers: supine-sit: mod A x 2 sit-supine: max A x 2 sit-stand: unable Gait: unable Balance: Static Sitting: poor (min A x 1) Dynamic Sitting: poor Static Standing: unable Dynamic Standing: unale Special Tests: Mobility Limitations Standardized Measure [employer] AM-PAC 6 clicks Basic Mobility Inpatient Short Form: Raw Score: 8 CMS Score: 87% impairment Informed Consent/Education: Patient instructed in purpose of PT consult and plan of care. Treatment: Initial Evaluation (09816) Therapeutic Exercises (67529h5): Attempted various exercises, with limited participation: seated LAQ, min A at trunk. Performs 2 reps right, 3 reps left seated shoulder punches cross body 3x right, 1x left heel slides 3x left, 2x AAROM right Assessment: Patient is an 84 year old male referred to physical therapy services in the acute care setting, where he is being managed for AMS. Patient participates only minimally today, with difficulty following commands and requiring significant assistance for transfers and seated balance. He does ambulate short distances with assistance at baseline, and will benefit from introduction of skilled PT intervention to maximize mobility. Will be appropriate for transition back to SNF once medically stable. He currently demonstrates the following impairment level findings: 1. Decreased upper extremity strength 2. Decreased lower extremity strength 3. Decrease sitting balance 4. Decreased ability to follow commands Impairments are contributing to the following functional limitations: 1. Unable to transfer sit to stand 2. Unable to ambulate 3. Unable to independently perform bed mobility Patient is assessed as Moderate 93303 Complexity based on the following: History: as above. Extensive medical history as noted below, complicated by acute medical issues requiring current hospitalization. Examination: As above Presentation: Evolving Decision Making: Moderate complexity Goals: Goals X1 week 1. Supine-Sit : min A 2. Sit-Supine : min A 3. Sit-Stand : min A 4. Stand-Sit : min A 5. Bed-Chair : min A with FWW 6. Chair-Bed : min A with FWW 7. Gait : min A with FWW x 15' Plan of Care/Treatment Plan: 1-2x/day, 7 days/week x 1 week. Plan of care has been reviewed with the STORE PLANNER providing the service under Physical Therapy direction. Initiate Physical Therapy intervention for strengthening, bed mobility, transfers, gait, stairs, balance training, use of assistive device. DISCHARGE RECOMMENDATIONS: SNF for continued rehabilitation TREATMENT CODE/TIME: 5689-0512 (74338) Christine Rosales, PT, DPT [place] [facility] All Active Problems (Updated 01/30/25 @ 00:03 by Ze Mao MD) CHF (congestive heart failure) (Chronic) AMS (altered mental status) (Acute) History of pulmonary embolism (Acute) Left ureteral injury (Acute) 09/08/24 [facility] Urology note Discharge planning issues (Acute) Hyperparathyroidism (Chronic) Stenosis of right vertebral artery (Chronic) Acute alteration in mental status (Acute) Urinary tract infection associated with nephrostomy catheter (Acute) Complicated UTI (urinary tract infection) (Acute) Renal calculus, left (Chronic) Nail dystrophy (Acute) Yeast UTI (Acute) Confusion associated with infection (Acute) Confusion (Acute) Abnormal urinalysis (Acute) Hematuria (Acute) Acute hypoxic respiratory failure (Acute) Edema of both lower extremities (Acute) Well-managed, with exercise/activity; b/l general .. trial compression and lasix Elevated parathyroid hormone (Acute) Osteoarthritis of right knee (Acute) Steroid injection: 01/14/2025; 03/04/24; 05/19/2023 Hypercalcemia (Acute) CKD (chronic kidney disease) stage 3, GFR 30-59 ml/min (Acute) Stage 3, 2022, with LALA (GFR <30!) 2' over-diures.. Hx stage 2-3 (2021) Edema of foot (Acute) Knee pain, bilateral (Acute) ? 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 (Worsening, re-start furosemide, 10/2020) Renal calculus Hematuria: CT (01/09/23) vs. CT (04/27/2022):.. largest calculus in the left kidney has now migrated to the upper left ureter/UPJ level (prob responsible for hematuria)..no obvious dilatation of the left collecting system above this level..another calculus again noted in the left left kidney lower pole calyx (no changed position)..previously present 3 mm calculus in the bladder no longer seen and has most probably passed. 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 07/2021 Left knee pain Acute on chronic. Not a surgical candidate. Cane helping - may need training.. BPH w/o urinary obs/LUTS (02/15/11) nocturiaX1-2; INCR 3X 09/2012 Acute on chronic renal failure Acute exacerbation of congestive heart failure Hosp; resolved .. but with too much fluid restriction post hosp! Bakers cyst Rt, 4cm.. incidental finding on US DVT (deep venous thrombosis) New DVT, 02/2021. Xarelto started. Resolved, Cinda D/C'd 07/2020 by Surg. C. 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 denies this stated that this was due to an interaction a year ago where having the masks on and he his hard of hearing they stated he had dementia which his and current PCP stated he does not. 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 Taylor started him on HCTZ 2005. High BP readings @ ophtho, urol . turns out to be 2' finesteride, Dr. Smallwood d/c'd .. will follow up in July 2018. 125/85 today, 06/2018, ik. Surgical History Hx of cataract removal with insertion of prosthetic lens 12/11/20 [facility], [facility] Posterior subcapsular age-related cataract, right eye Nuclear sclerotic cataract of right eye S/P cholecystectomy (01/24/20) S/P ERCP Arthroscopy (02/10/84) in CT, Left knee
--- NOTE | 2025-01-30 13:20 | PGE_ITS ---
Date of Service Date of service: 01/30/25 Time of Service: 13:20 Assessment and Plan Assessment and plan (1) Complicated UTI (urinary tract infection): Status: Acute Assessment and plan: Looking back he has urine culture 01/26 that grew actinobacter, which is not generally sensitive to amox/clav which is what he got for his pneumonia. With his MS alteration, treating as active infection with ceftazidime, can transition to TMP/SMX on discharge Consider prophylactic dosing after 7 days of treatment until nephrostomy removed. (2) AMS (altered mental status): Status: Acute Assessment and plan: I think this is infectious encephalopathy secondary to UTI. It is improving with antibiotics and fluids. (3) CHF (congestive heart failure): Status: Chronic Assessment and plan: H/o clinical CHF in 2022, normal echocardiogram then including LVEF. I don't think he is currently in active CHF. (4) History of pulmonary embolism: Status: Acute Assessment and plan: Continue with his Xarelto (5) Hyperparathyroidism: Status: Chronic Assessment and plan: Patient is status post parathyroidectomy. Calcium has been normal so I don't think related to his presentation. (6) CKD (chronic kidney disease) stage 3, GFR 30-59 ml/min: Status: Acute Assessment and plan: Borderline stage 3a, Cr at baseline. (7) Left ureteral injury: Status: Acute Assessment and plan: Neprhrostomy functioning. Contributing to recurrent infections. Consider replacing with urology. Discharge Planning Discharge Planning: home 01/31 if continues to improve, oral TMP/SMX Subjective Subjective Patient reports: feels better; denies diarrhea, vomiting or fever Interval history since last seen: Events: Ceftazidime started to treat actinobacter UTI this morning Looks better that last night per . Per has struggled with infections since nephrostomy placed. Plan is for removal 03/2025. He is eating Exam Narrative Exam Narrative: GEN: More alert and responsive this afternoon than this morning. Cardiovascular regular rate and rhythm no murmurs gallops Lungs: CTAb, normal effort, no wheese. Abdomen protuberant bowel sounds active x 4 Extremities: no cyanosis clubbing or edema Back exam shows what appears to be a left nephrostomy tube clean and intact. Objective Last Vital Signs Temp 37.0 C 01/30/25 07:27 Pulse 74 01/30/25 07:27 Resp 16 01/30/25 07:27 BP 175/82 H 01/30/25 07:27 Pulse Ox 90 L 01/30/25 07:27 Laboratory Results - last 24 hr 01/29/25 01/29/25 01/29/25 20:45 21:13 22:05 WBC 9.85 RBC 4.79 Hgb 12.9 L Hct 40.5 MCV 85 MCH 26.9 L MCHC 31.9 L RDW 15.9 H Plt Count 149 MPV 9.2 Immature Gran % 1.4 Neutrophils % 66.7 Lymphocytes % 21.0 Monocytes % 8.6 Eosinophils % 1.7 Basophils % 0.6 Nucleated RBC % 0.0 Absolute Neutrophils 6.56 Absolute Lymphocytes 2.07 Absolute Monocytes 0.85 H Absolute Eosinophils 0.17 Absolute Basophils 0.06 PT 10.5 INR 1.1 APTT 25.4 Sodium 137 Potassium 3.7 Chloride 96 L Carbon Dioxide 31.7 H Anion Gap 9.1 BUN 23 Creatinine 1.14 Est GFR (CKD-EPI 2020) 61.01 Glucose 91 Calcium 9.2 Magnesium 2.0 Total Bilirubin 1.1 AST 12 ALT 10 Alkaline Phosphatase 59 Troponin I 13 NT-Pro-B Natriuret Pep 2541 H Total Protein 7.5 Albumin 4.3 Lipase 43 Urine Color Yellow Urine Clarity Clear Urine pH 5.5 Ur Specific [place] 1.025 Urine Protein 100 H Urine Ketones Negative Urine Blood Large H Urine Nitrite Negative Urine Bilirubin Negative Urine Urobilinogen 0.2 Ur Leukocyte Esterase Trace H Urine RBC 20-50 H Urine WBC 10-20 H Ur Epithelial Cells Rare Urine Crystals Negative Urine Bacteria Few Urine Casts Negative Urine Mucus Negative Urine Other Few Yeast Ur Culture Indicated? Yes Urine Glucose Negative COVID-19 Source Nasopharynx SARS-CoV-2 (PCR) Negative Influenza Type A (PCR) Negative Influenza Type B (PCR) Negative RSV (PCR) Negative 01/29/25 01/30/25 22:30 06:23 WBC 8.66 RBC 4.37 Hgb 12.1 L Hct 36.9 L MCV 84 MCH 27.7 MCHC 32.8 RDW 15.7 H Plt Count 147 MPV 9.2 Immature Gran % 1.7 Neutrophils % 64.1 Lymphocytes % 22.6 Monocytes % 9.5 Eosinophils % 1.6 Basophils % 0.5 Nucleated RBC % 0.0 Absolute Neutrophils 5.55 Absolute Lymphocytes 1.96 Absolute Monocytes 0.82 H Absolute Eosinophils 0.14 Absolute Basophils 0.04 PT INR APTT Sodium 137 Potassium 3.6 Chloride 99 Carbon Dioxide 31.6 H Anion Gap 6.7 BUN 20 Creatinine 1.03 Est GFR (CKD-EPI 2020) 68.59 Glucose 89 Calcium 8.7 Magnesium Total Bilirubin 1.3 H AST 11 ALT 8 L Alkaline Phosphatase 52 Troponin I 12 NT-Pro-B Natriuret Pep Total Protein 6.5 Albumin 3.7 Lipase Urine Color Urine Clarity Urine pH Ur Specific [place] Urine Protein Urine Ketones Urine Blood Urine Nitrite Urine Bilirubin Urine Urobilinogen Ur Leukocyte Esterase Urine RBC Urine WBC Ur Epithelial Cells Urine Crystals Urine Bacteria Urine Casts Urine Mucus Urine Other Ur Culture Indicated? Urine Glucose COVID-19 Source SARS-CoV-2 (PCR) Influenza Type A (PCR) Influenza Type B (PCR) RSV (PCR) VTE Prohylaxis Risk Level: Moderate/High Risk Contraindications: None Prophylaxis: Pharmacologic Time Spent with Patient Time Spent with Patient: 35-49 minutes Time was spent: preparing to see the patient(eg.review tests), obtaining and/or reviewing separately otained hiistory, ordering medications,tests, procedures, referring, communicating with other health pet care worker, indepentently interpreting results, counseling the patient and care coordination
[2025-01-30] MEDS: Rivaroxaban 10 MG TABLET PO (20:41)
[2025-01-31] MEDS: Normal Saline 1,000 ML 75 ML IV (05:09)
[2025-01-31 07:22] VITALS: BP 197/94; PULSE 81; RESP 16; TEMP 36.6; O2SAT 93
[2025-01-31 07:32] VITALS: BP 195/90
[2025-01-31] MEDS: Acetaminophen 500 MG TAB 1000 MG PO (07:39)
[2025-01-31] MEDS: Docusate Sodium 100 MG CAP PO (07:40)
[2025-01-31] MEDS: Calcitriol 0.25 MCG CAP PO (07:41)
[2025-01-31] MEDS: Metoprolol 12.5 MG TAB PO (07:41)
[2025-01-31] MEDS: Furosemide 20 MG TAB PO (07:41)
[2025-01-31] MEDS: Omeprazole 20 MG CAPCR PO (07:41)
[2025-01-31] MEDS: Diclofenac 1% Gel 100 GM TUBE TP (07:42)
[2025-01-31] MEDS: Polyethylene Glycol 3350 17 GM PACKET PO (07:42)
--- NOTE | 2025-01-31 08:42 | PDOC.CMPRO ---
Date of service: 01/31/25 Time of Service: 08:42 Care Management Progress Note Discharge Potential Discharge Needs: Other (return to SNF) Anticipated Barriers to Discharge: None Identified Patient/Family Education Needs: Review discharge instructions, discuss Ask Me Three Transportation: RCT Plan: Anticipate Raffy will be discharged back to the [facility] when medically cleared. He will follow up with facility providers and plan of care and transport with RCT. CM will follow and continue to assess for discharge needs. Social Determinants of Health Screening Will the Patient Participate in the Screening?: Unable to obtain
--- NOTE | 2025-01-31 09:43 | PTTR_ITS ---
PT Notes Visit Reasons: [facility] Inpatient Physical Therapy Treatment Note Date: 01/31/25 Precautions: As of 01/31/2025 More Fall score is 60 (high fall risk). Standard. Activity as tolerated. Impared saftey awreness due to prexisting dementia. Subjective: Anxious about and jumpy about being moved, needed extra cueing and slower transition to minimize anxiety. Did not want to move out of bed without his shoes. Left a message for over the phone to bring shoes in. Objective: General Observation: Resting in bed, IV in RUE, Ng catheter in place. Mental Status: Alert, oriented to place. Provides brief verbal response intermittently throughout session, with single word responses only. Requires single step commands, which he follows 50% of the time. Pain: shakes head no Vital Signs: monitored by nursing Bed Mobility/Transfers: Minimal cueing provided for use of B hands as needed for support, movement sequence, AD management, and posture to reduce fall risk and minimize pain report supine-sit: moderate assist sit-supine: moderate assist sit-stand: unable to stand from egde of bed with assist of 2 despite 3 attempts sit-stand minimal assist of 2 using STEDY lift bed to toilet transfer minimal assist of 1 using the STEDY lift Gait: Refused to walk without his shoes but was agreeable to transferring to bedside recliner using the STEDY lift for today. Balance: Static Sitting: Fair Dynamic Sitting: Fair Static Standing: Poor Dynamic Standing: Poor Assessment: Did not want to do seated exercises in the morning despite continued encouragement of PT. Called SNF to inquire about patient's baseline mobility to ensure that goals are set appropriately. Nurse verified that patient needed assist of 1 for al transfers and stated that patient walked about 30 feet just last week using the FWW. Very anxious about moving with new environment and new caregivers. Did not want to get up, perseverated on needing shoes before wanting to get up. Called to request for a new pair of shoes for patient to facilitate walking. Agreeable to using the STEDY lift for trasnfers. Was able to do sit<>stand from edeg of bed whne he discovered how stable the STEDY lift is. Patient will benefit from continued subacute rehab to progress strength, mobility level, and functional mobility to reduce fall risk and regain Plan of Care/Treatment Plan: 1-2x/day, 7 days/week x 1 week. Plan of care has been reviewed with the BLOW MOLD OPERATOR providing the service under Physical Therapy direction. Initiate Physical Therapy intervention for strengthening, bed mobility, transfers, gait, stairs, balance training, use of assistive device. DISCHARGE RECOMMENDATIONS: Return to SNF for continued rehabilitation TREATMENT CODE/TIME: Session 1-- 30222 x 38 minutes for 3 units (9:43-10:21). Session 2-- 27161 x 43 minutes for 3 units (13:07-14:00).
[2025-01-31] MEDS: cefTAZidime 2,000 MG in Normal Saline 100 ML 200 MG IVPB (11:26)
--- NOTE | 2025-01-31 11:36 | W.PM.DS.N ---
Date of service: 02/16/25 Time of Service: 11:36 DS: Diagnosis Discharge Diagnosis (1) Complicated UTI (urinary tract infection): Status: Acute (2) AMS (altered mental status): Status: Acute (3) CHF (congestive heart failure): Status: Chronic (4) History of pulmonary embolism: Status: Acute (5) Hyperparathyroidism: Status: Chronic (6) CKD (chronic kidney disease) stage 3, GFR 30-59 ml/min: Status: Acute (7) Left ureteral injury: Status: Acute (8) Nephrostomy status: (9) Cognitive impairment: Status: Acute Discharge Plan Disposition Patient Disposition: [facility] Condition: Stable Discharge Details Reason For Visit: AMS Admit Date/Time: 01/29/25 23:48 Admit Provider: Ze Mao Attending Provider: Ze Mao Primary Care Provider: Anne-Marie Wright Hospital Course Hospital Course: 84-year-old gentleman with h/o HFpEF, CKD3a, h/o pulmonary emboli on rivaroxaban, left nephrostomy due to ureteral damage complicating kidney stones with recurrent UTIs who was just admitted at [facility] 01/23/25-01/26/25 for sepsis and pneumonia who was sent from [facility] for suppressed mental status. He appeared mildly dehydrated and had ongoing pyuria. Urine from the previous admission was notable for actinobacter baumanii, which is not typically sensitive to amox/clavulonate he was taking for pneumonia. He was treated with ceftazidime (amp/sulbactam was felt too similar to amox/clav and cipro avoided due to AAA). He improved and by 01/31 he was eating and drinking and his mental status had returned to baseline. Based on sensitivities he was given 5 more days of Bactrim. He may benefit from a daily preventive dose at the end of the week to prevent recurrence of UTI. He does seem to have some cognitive impairment at baseline and it would be helpful to formally assess and diagnosis this. He did have a CTA head/neck with no acute findings on presentation. He should have a BMP in 1 week, and should have a visit (telehealth okay) with PCP or urology by the end of the treatment course in 5 days to decide on ongoing preventive antibiotic therapy and consider the need to replace or remove the nephrostomy tube. Home Meds and New Rx's Prescriptions: New sulfamethoxazole-trimethoprim [Bactrim DS] 800-160 mg tablet 1 tab PO BID 5 Days Qty: 10 0RF Continued cholecalciferol (vitamin D3) 1,250 mcg (50,000 unit) capsule 1,250 mcg PO QWEEK calcitriol 0.25 mcg capsule 0.25 mcg PO DAILY ondansetron 4 mg tablet,disintegrating 4 mg PO DAILY PRN polyethylene glycol 3350 [Miralax] 17 gram/dose powder 17 g PO BID acetaminophen 500 mg capsule 1,000 mg PO BID docusate sodium 100 mg capsule 100 mg PO DAILY furosemide [Lasix] 20 mg tablet 20 mg PO BID metoprolol tartrate 25 mg tablet 12.5 mg PO BID Patient Comments: Per pt. always takes this around [id number] 03/15/24-JW diclofenac sodium 1 % gel 4 g topical DAILY Rx Instructions: 4grams to each knee Discontinued omeprazole 20 mg capsule,delayed release(DR/EC) 20 mg PO DAILY amoxicillin-pot clavulanate 875-125 mg tablet 1 tab PO Q12H Qty: 6 0RF calcitonin (salmon) 200 unit/actuation spray,non-aerosol 1 spray intranasal .QOD Rx Instructions: Administer in right nostril every other day and 1 spray in left nostril opposite days No Action Xarelto 10 mg tablet 10 mg PO QPM Discharge Instructions Additional Instructions: Finish 5 more days of Bactrim. The urologist or PCP may want to continue this at a lower dose daily as a preventive antibiotic until the nephrostomy tube can be removed. Referrals: Patsy Gregg [ NON-[facility] STAFF PHYSICIAN, Medicine] Referral Note: follow up nephrostomy, recurrent UTI Activity:: Activity as Tolerated Equipment/Supplies:: No Equipment Needed Diet:: As Tolerated Discharge Orders Discharge Orders: Discharge Order (Routine); Ordered 01/31/25 Ordered By: Rudolph Boyd DS: Summary Time Spent with Patient providing and/or coordinating discharge services: Greater than 30 minutes Status at Discharge Functional status at discharge: independent ambulation Overall status at discharge: patient is back to baseline Mental Status: other (some impaired cognition) Speech and Movement: speech and movement normal Mood: congruent mood and other (some impaired cognition) Affect: normal affect Quality:SDOH Health Related Social Needs: Health related social needs daily activities Exam Narrative Exam Narrative: GEN: More alert and responsive, oriented to self and hospital, gives year as 2004. Cardiovascular regular rate and rhythm no murmurs gallops Lungs: CTAb, normal effort, no wheese. Abdomen protuberant bowel sounds active x 4 Extremities: no cyanosis clubbing or edema Back: left nephrostomy tube clean and intact. Psych Mental Status: other (some impaired cognition) Speech and Movement: speech and movement normal Mood: congruent mood and other (some impaired cognition) Affect: normal affect DS: Data Vitals/I&O Vitals and I&O: Vital Signs Temperature 36.6 C 01/31/25 07:22 Temperature Source Temporal Artery Scan 01/31/25 07:22 Pulse 81 01/31/25 07:22 Pulse Rhythm Regular 01/30/25 00:48 Pulse 80 01/30/25 00:20 Respiratory Rate 16 01/31/25 07:22 Respiratory Effort Normal 01/30/25 00:48 Respiratory Depth Normal 01/30/25 00:48 Respiratory Pattern Normal 01/30/25 00:48 Blood Pressure 195/90 H 01/31/25 07:32 Blood Pressure Mean 125 01/31/25 07:32 Pulse Oximetry 93 01/31/25 07:22 Oxygen Delivery Method Room Air 01/31/25 07:22 Oxygen Flow Rate 0 01/31/25 07:22 Pain Level 0 01/31/25 07:39 Comment notified: metoprolol ordered 01/29/25 22:06 Intake & Output 01/30/25 01/30/25 01/31/25 11:59 23:59 11:59 Intake Total 100 / 1680 1580 / 1680 1500 / 1500 Output Total 1050 / 2250 1200 / 2250 Balance -950 / -570 380 / -570 1500 / 1500 Intake: IV 100 / 1200 1100 / 1200 1100 / 1100 Oral 480 / 480 Injectate 400 / 400 Left 400 / 400 Output: Urine 1050 / 2250 1200 / 2250 Other: Urine Color Yellow Yellow Urine Appearance Clear Clear Comment left Ileal conduit Data Completed and Pending Pending Labs at Discharge: 01/29/25 01/29/25 01/29/25 20:45 21:13 22:05 WBC 9.85 RBC 4.79 Hgb 12.9 L Hct 40.5 MCV 85 MCH 26.9 L MCHC 31.9 L RDW 15.9 H Plt Count 149 MPV 9.2 Immature Gran % 1.4 Neutrophils % 66.7 Lymphocytes % 21.0 Monocytes % 8.6 Eosinophils % 1.7 Basophils % 0.6 Nucleated RBC % 0.0 Absolute Neutrophils 6.56 Absolute Lymphocytes 2.07 Absolute Monocytes 0.85 H Absolute Eosinophils 0.17 Absolute Basophils 0.06 PT 10.5 INR 1.1 APTT 25.4 Sodium 137 Potassium 3.7 Chloride 96 L Carbon Dioxide 31.7 H Anion Gap 9.1 BUN 23 Creatinine 1.14 Est GFR (CKD-EPI 2020) 61.01 Glucose 91 Calcium 9.2 Magnesium 2.0 Total Bilirubin 1.1 AST 12 ALT 10 Alkaline Phosphatase 59 Troponin I 13 NT-Pro-B Natriuret Pep 2541 H Total Protein 7.5 Albumin 4.3 Lipase 43 Urine Color Yellow Urine Clarity Clear Urine pH 5.5 Ur Specific [place] 1.025 Urine Protein 100 H Urine Ketones Negative Urine Blood Large H Urine Nitrite Negative Urine Bilirubin Negative Urine Urobilinogen 0.2 Ur Leukocyte Esterase Trace H Urine RBC 20-50 H Urine WBC 10-20 H Ur Epithelial Cells Rare Urine Crystals Negative Urine Bacteria Few Urine Casts Negative Urine Mucus Negative Urine Other Few Yeast Ur Culture Indicated? Yes Urine Glucose Negative COVID-19 Source Nasopharynx SARS-CoV-2 (PCR) Negative Influenza Type A (PCR) Negative Influenza Type B (PCR) Negative RSV (PCR) Negative 01/29/25 01/30/25 22:30 06:23 WBC 8.66 RBC 4.37 Hgb 12.1 L Hct 36.9 L MCV 84 MCH 27.7 MCHC 32.8 RDW 15.7 H Plt Count 147 MPV 9.2 Immature Gran % 1.7 Neutrophils % 64.1 Lymphocytes % 22.6 Monocytes % 9.5 Eosinophils % 1.6 Basophils % 0.5 Nucleated RBC % 0.0 Absolute Neutrophils 5.55 Absolute Lymphocytes 1.96 Absolute Monocytes 0.82 H Absolute Eosinophils 0.14 Absolute Basophils 0.04 PT INR APTT Sodium 137 Potassium 3.6 Chloride 99 Carbon Dioxide 31.6 H Anion Gap 6.7 BUN 20 Creatinine 1.03 Est GFR (CKD-EPI 2020) 68.59 Glucose 89 Calcium 8.7 Magnesium Total Bilirubin 1.3 H AST 11 ALT 8 L Alkaline Phosphatase 52 Troponin I 12 NT-Pro-B Natriuret Pep Total Protein 6.5 Albumin 3.7 Lipase Urine Color Urine Clarity Urine pH Ur Specific [place] Urine Protein Urine Ketones Urine Blood Urine Nitrite Urine Bilirubin Urine Urobilinogen Ur Leukocyte Esterase Urine RBC Urine WBC Ur Epithelial Cells Urine Crystals Urine Bacteria Urine Casts Urine Mucus Urine Other Ur Culture Indicated? Urine Glucose COVID-19 Source SARS-CoV-2 (PCR) Influenza Type A (PCR) Influenza Type B (PCR) RSV (PCR) Preliminary micro results at discharge 01/29/25 21:13 Urine - Reflex from Ua Urine Culture - Preliminary YEAST PFSH All Active Problems (Updated 01/31/25 @ 11:38 by Rudolph Boyd) Cognitive impairment (Acute) CHF (congestive heart failure) (Chronic) AMS (altered mental status) (Acute) History of pulmonary embolism (Acute) Left ureteral injury (Acute) 09/08/24 [facility] Urology note Hyperparathyroidism (Chronic) Stenosis of right vertebral artery (Chronic) Acute alteration in mental status (Acute) Urinary tract infection associated with nephrostomy catheter (Acute) Complicated UTI (urinary tract infection) (Acute) Renal calculus, left (Chronic) Nail dystrophy (Acute) Discharge planning issues (Acute) Yeast UTI (Acute) Confusion associated with infection (Acute) Confusion (Acute) Abnormal urinalysis (Acute) Hematuria (Acute) Acute hypoxic respiratory failure (Acute) Edema of both lower extremities (Acute) Well-managed, with exercise/activity; b/l general .. trial compression and lasix Elevated parathyroid hormone (Acute) Osteoarthritis of right knee (Acute) Steroid injection: 01/14/2025; 03/04/24; 05/19/2023 Hypercalcemia (Acute) CKD (chronic kidney disease) stage 3, GFR 30-59 ml/min (Acute) Stage 3, 2022, with LALA (GFR <30!) 2' over-diures.. Hx stage 2-3 (2021) Edema of foot (Acute) Knee pain, bilateral (Acute) ? goop injection Onychomycosis (Acute) Lumbar spondylosis (Acute) Lumbar back pain (Acute) Lumbar adjacent segment disease with spondylolisthesis (Acute) long-term (current) use of anticoagulants (Acute) Osteoarthritis of left knee (Acute) Steroid injection: 01/14/2025; 03/04/24; 05/19/2023; 12/07/2020 HTN (hypertension) (Chronic) Hyperlipidemia (Chronic 10/24/04) RISK 12% 11/2005; LDL goal 100 Need labs, [ ] Fall 201807/01/18 Medical History (Updated 01/31/25 @ 11:38 by Rudolph Boyd) Pulmonary emboli Pneumonia Renal calculus Hematuria: CT (01/09/23) vs. CT (04/27/2022):.. largest calculus in the left kidney has now migrated to the upper left ureter/UPJ level (prob responsible for hematuria)..no obvious dilatation of the left collecting system above this level..another calculus again noted in the left left kidney lower pole calyx (no changed position)..previously present 3 mm calculus in the bladder no longer seen and has most probably passed. Acute on chronic renal failure Gout due to renal impairment involving toe of right foot Acute exacerbation of congestive heart failure Hosp; resolved .. but with too much fluid restriction post hosp! Renal insufficiency becoming CKD, Stage 2-3.. 07/2021 Bakers cyst Rt, 4cm.. incidental finding on US Leg edema Resolves with activity, qAM, 04/2022.. (Worsening, re-start furosemide, 10/2020) Left knee pain Acute on chronic. Not a surgical candidate. Cane helping - may need training.. DVT (deep venous thrombosis) New DVT, 02/2021. Xarelto started. Resolved, Cinda D/C'd 07/2020 by Surg. C. 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 denies this stated that this was due to an interaction a year ago where having the masks on and he his hard of hearing they stated he had dementia which his and current PCP stated he does not. 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 Taylor started him on HCTZ 2005. High BP readings @ ophtho, urol . turns out to be 2' finesteride, Dr. Smallwood d/c'd .. will follow up in July 2018. 125/85 today, 06/2018, ik. BPH w/o urinary obs/LUTS (02/15/11) nocturiaX1-2; INCR 3X 09/2012 Surgical History (Updated 01/31/25 @ 11:38 by Rudolph Boyd) Nephrostomy status Hx of cataract removal with insertion of prosthetic lens 12/11/20 [place], [facility] Posterior subcapsular age-related cataract, right eye Nuclear sclerotic cataract of right eye S/P cholecystectomy (01/24/20) S/P ERCP Arthroscopy (02/10/84) in CT, Left knee Family History Son Age: 62 No problems noted. 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 [employer] Current gender identity: male What type of physical activity do you participate in: none Working smoke detector in home: Yes Fire extinguisher in home: Yes Carbon monox detector in home: Yes Additional Social history: unable to assess privately Time Spent with Patient Time Spent with Patient: <45 minutes Time was spent: preparing to see the patient(eg.review tests), obtaining and/or reviewing separately otained hiistory, ordering medications,tests, procedures, referring, communicating with other health career development director, indepentently interpreting results, counseling the patient and care coordination
--- NOTE | 2025-01-31 12:35 | W.PC.ACHO ---
Registration Status: ADM ABDIEL Primary Language: Preferred Language: Syriac ED Information & Data Chief Complaint AMS/LOC 01/30/25 00:59 Triage Note Mario Alberto reports AMS LKW 1700. 01/29/25 18:42 Reports delayed speech. Recent Hx of aspiration pneumonia. No temp. 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) Benign hypertension (12/09/05) (Last Updated 01/31/25 @ 11:38 by Rudolph Boyd) Nephrostomy status Hx of cataract removal with insertion of prosthetic lens Posterior subcapsular age-related cataract, right eye Nuclear sclerotic cataract of right eye S/P cholecystectomy (01/24/20) S/P ERCP Arthroscopy (02/10/84) Most Recent Vital Signs Temperature 36.6 C 01/31/25 07:22 Temperature Source Temporal Artery Scan 01/31/25 07:22 Pulse 81 01/31/25 07:22 Pulse Rhythm Regular 01/30/25 00:48 Pulse 80 01/30/25 00:20 Respiratory Rate 16 01/31/25 07:22 Respiratory Effort Normal 01/30/25 00:48 Respiratory Depth Normal 01/30/25 00:48 Respiratory Pattern Normal 01/30/25 00:48 Blood Pressure 195/90 H 01/31/25 07:32 Blood Pressure Mean 125 01/31/25 07:32 Pulse Oximetry 93 01/31/25 07:22 Oxygen Delivery Method Room Air 01/31/25 07:22 Oxygen Flow Rate 0 01/31/25 07:22 Pain Level 0 01/31/25 08:39 Comment notified: metoprolol ordered 01/29/25 22:06 Allergies amlodipine Adverse Reaction (Mild, Verified 01/23/25 19:15) nightmares/restless sleep hydrochlorothiazide Adverse Reaction (Mild, Verified 01/23/25 19:15) possible Erectile dysfunction finasteride Adverse Reaction (Verified 01/23/25 19:15) Hypertension Active Medications Generic Name Dose Route Start Last Admin Trade Name Freq PRN Reason Stop Dose Admin Acetaminophen 1,000 mg 01/30/25 08:30 01/31/25 07:39 Acetaminophen 500 Mg Tab PO 1,000 mg BID PIPER Administration Calcitriol 0.25 mcg 01/30/25 08:30 01/31/25 07:41 Calcitriol 0.25 Mcg Cap PO 0.25 mcg DAILY PIPER Administration Diclofenac Sodium 4 gm 01/30/25 08:30 01/31/25 07:42 Diclofenac 1% Gel 100 Gm Tube TP 1 applic DAILY PIPER Administration Docusate Sodium 100 mg 01/30/25 08:30 01/31/25 07:40 Docusate Sodium 100 Mg Cap PO 100 mg DAILY PIPER Administration Furosemide 20 mg 01/30/25 08:30 01/31/25 07:41 Furosemide 20 Mg Tab PO 20 mg BID DIURETIC PIPER Administration Ceftazidime 2,000 mg/ Sodium 100 mls @ 200 mls/hr 01/30/25 08:00 01/31/25 12:18 Chloride IVPB Infused Q8H PIPER Infusion Metoprolol Tartrate 12.5 mg 01/30/25 08:30 01/31/25 07:41 Metoprolol 12.5 Mg Tab PO 12.5 mg BID PIPER Administration Omeprazole 20 mg 01/30/25 07:30 01/31/25 07:41 Omeprazole 20 Mg Capcr PO 20 mg DAILY@0730 PIPER Administration Polyethylene Glycol 17 gm 01/30/25 08:30 01/31/25 07:42 Polyethylene Glycol 3350 17 Gm Packet PO 17 gm BID PIPER Administration Rivaroxaban 10 mg 01/30/25 20:00 01/30/25 20:41 Rivaroxaban 10 Mg Tablet PO 10 mg QPM PIPER Administration Sodium Chloride 0 ml 01/29/25 21:42 01/30/25 20:42 Normal Saline Flush 10 Ml Syr IVP 20 ml PRN PRN Administration IV IV Catheter Type [Forearm] Peripheral IV IV Catheter Type [Right Peripheral IV Forearm] IV Catheter Gauge [Forearm] 20 IV Catheter Gauge [Right 20 Forearm] 01/29/25 21:13 Urine Culture - Preliminary Urine - Reflex from Ua YEAST [id number] Documentation Fingerstick Glucose Start: 01/29/25 18:57 Freq: Status: Active Protocol: Activity Type Activity Date Activity User E-sign Co-sign Detail Recorded Client Recorded Date Recorded By Document 01/29/25 18:55 BKG DAEMON(3) [id number] 01/29/25 18:57 BKG DAEMON(4) Intake and Output - 24 Hour Total 01/29/25 18:25 thru 01/31/25 12:24 Intake Total 3823.75 Output Total 2250 Balance 1573.75 Weight 111.9 kg Intake: IV 2943.75 Oral 480 Injectate 400 Left 400 Output: Urine 2250 Other: Urine Color Yellow Urine Appearance Clear Comment left Ileal conduit Falls Risk Assessment History of Falls Previous History 01/30/25 00:48 Contributing Factors Confusion,Impairments 01/30/25 00:48 Ambulatory Aids Uses ambulatory device + 01/30/25 00:48 Tubes/Lines With any additional score 01/30/25 00:48 Gait Evaluation W/any additional score 01/30/25 00:48 Cognition Cognitive impairment 01/30/25 00:48 Fall Total Score 106 01/30/25 00:48 Level of Risk Maximum Risk 01/30/25 00:48 Problems (Last Reviewed 01/24/25 @ 02:21 by Ricardo Amaral) CHF (congestive heart failure) (Chronic) AMS (altered mental status) (Acute) History of pulmonary embolism (Acute) Left ureteral injury (Acute) Hyperparathyroidism (Chronic) Complicated UTI (urinary tract infection) (Acute) Abnormal urinalysis (Acute) CKD (chronic kidney disease) stage 3, GFR 30-59 ml/min (Acute) HTN (hypertension) (Chronic) Attestation Statement: By documenting the first initial, last name, and credentials of the reporting nurse below, both parties acknowledge that all relevant information regarding the patient handoff has been communicated, and that all questions have been addressed to ensure continuity and safety of care. Additional Patient Information/Comments: Report Received From: Report called to Dyana Powell rn at 1230
--- NOTE | 2025-01-31 12:35 | NUR.NOTE ---
Nursing Note: [facility] took report at 1230.
--- NOTE | 2025-01-31 14:42 | CMDISCH_ITS ---
Date of service: 01/31/25 Time of Service: 14:42 LACE Index Scoring Tool Questions: Length of Stay (in days): 2 Was the patient admitted via the E.D.?: Yes Comorbidities: Congestive Heart Failure and Liver or Renal Disease E.D. Visits: 6 Answers: Total Score: 14 Risk of Readmission: High Risk Care Management Discharge Plan Reason for Hospitalization: AMS Discharge Plan: Raffy will be transferred back to [facility] and follow up with the facility providers and plan of care. He will transport via [facility] W/C van. Patient/Family Education Needs: Review discharge instructions, limitations, follow up plan and discuss Ask Me Three. Services Needed at Discharge: Assisted Facility SDOH Health Related Social Needs: Health related social needs daily activities
== END 2025-01-31 14:00 | disposition skilled nursing facility (03) ==
LOC: ER 23:55 → MS 01-30 00:32
PROVIDERS: Admitting Provider Hospitalist; Emergency Provider General Practice; PCP Legal Medicine; Responsible Provider Family Medicine; Visit Provider Hospitalist
DX: N39.0 Urinary tract infection, site not specified (principal); R41.82 Altered mental status, unspecified; Z86.711 Personal history of pulmonary embolism; N18.31 Chronic kidney disease, stage 3a; R41.89 Other symptoms and signs involving cognitive functions and awareness; Z93.6 Other artificial openings of urinary tract status; E86.0 Dehydration; B96.83 Acinetobacter baumannii as the cause of diseases classified elsewhere; I50.32 Chronic diastolic (congestive) heart failure; Z79.01 Long term (current) use of anticoagulants; E89.2 Postprocedural hypoparathyroidism; Z87.440 Personal history of urinary (tract) infections; I65.01 Occlusion and stenosis of right vertebral artery; N20.0 Calculus of kidney; I13.0 Hypertensive heart and chronic kidney disease with heart failure and stage 1 through stage 4 chronic kidney disease, or unspecified chronic kidney disease; E78.5 Hyperlipidemia, unspecified; M47.816 Spondylosis without myelopathy or radiculopathy, lumbar region; M1A.3710 Chronic gout due to renal impairment, right ankle and foot, without tophus (tophi); E66.812 Obesity, class 2; Z68.30 Body mass index [BMI] 30.0-30.9, adult; R31.9 Hematuria, unspecified; Z86.718 Personal history of other venous thrombosis and embolism; N13.30 Unspecified hydronephrosis; I71.40 Abdominal aortic aneurysm, without rupture, unspecified; Z73.89 Other problems related to life management difficulty
CPT/HCPCS: 00123; 36415; 36416; 70496; 70498; 80053; 82962; 83690; 87637; 93005; 97162; 97530; 99285; 71045; 81003; 81015; 83735; 83880; 84484; 85025; 85610; 85730; 87086; 93010; 99223; 99232; 99238; G0378; J0713; J3490

== ENCOUNTER 2025-02-07 14:58 | Outpatient (REF) | payer MEDICARE, MEDICAID, SELFPAY ==
[2025-02-07 15:45] LABS: Anion Gap 7.1 mmol/L (3-11); BUN 30 mg/dL (9-23); CO2 31.8 mmol/L (20.0-31.0); Calcium 10.3 mg/dL (8.3-10.6); Chloride 99 mmol/L (98-107); Glucose 100 mg/dL (74-106); Potassium 4.3 mmol/L (3.5-5.1); Sodium 138 mmol/L (136-145)
[2025-02-07 17:39] LABS: Glucose Negative (Negative)
[2025-02-07 17:48] LABS: RBC 20-50 HPF (0-2); WBC >50 HPF (0-5)
== END 2025-02-07 14:59 | disposition home or self-care (01) ==
LOC: LBN 14:58
PROVIDERS: PCP Legal Medicine; Visit Provider Nurse Practitioner Gerontology
DX: N39.0 Urinary tract infection, site not specified (principal); E87.8 Other disorders of electrolyte and fluid balance, not elsewhere classified
CPT/HCPCS: 80048; 81003; 81015; 87086